=== PATIENT | male | born 1935 | race Caucasian/White ===

== ENCOUNTER 2019-06-10 11:39 | Inpatient (IN) | payer MEDICARE, SELFPAY ==
[2019-06-10] VITALS (7 sets, daily range): BP systolic 131–170; BP diastolic 66–87; PULSE 68–93; RESP 16–20; TEMP 36.1–36.6; O2SAT 98–100; BMI 25.6; BMI 25.5
--- NOTE | ~2019-06-10 | CT_ITS ---
EXAMINATION: CT abdomen wo con EXAM DATE: 06/11/2019 16:01 INDICATION: Splenomegaly. Abdominal pain. TECHNIQUE: Spiral CT of the abdomen was performed without contrast. Axial, coronal and sagittal slava ges were reviewed. The dose-length product (DLP) for this examination was 509.30 mGy-cm. The exposu re was tailored according to patient size (auto mA exposure control), and iterative reconstruction (A SIR) was used as additional dose reduction technique. Comparison is made to prior examination from . FINDINGS: Mildly aneurysmal lower abdominal aorta at 3.4 cm. Spleen measures 14.5 cm, mildly enlarge d, and slightly larger than on previous exam. Gallbladder is unremarkable. No biliary obstruction. There is no nephrolithiasis or hydronephrosis. There is no retroperitoneal lymphadenopathy. The stomach and small bowel are unremarkable. Surgical changes from cecal resection. There is expecte d amount of colonic stool. No free intraperitoneal gas. The interventricular septum is perceptibl e, suggesting patient is anemic. The lung bases are unremarkable. There are no osteoblastic or ost eolytic lesions identified. IMPRESSION: 1. Interval development of mild splenomegaly. 2. Mildly aneurysmal abdominal aorta. Reviewed, dictated and finalized at location A.
--- NOTE | ~2019-06-10 | XR_ITS ---
XR abdomen NG/feed tube insert INDICATION: Evaluate NG tube position. TECHNIQUE: Limited KUB perform for evaluating NG tube . COMPARISON: No prior studies for comparison. FINDINGS: NG tube tip in the stomach. Visualized bowel gas pattern is unremarkable.Hazy ill-defined opacification right mid lung. Recommend correlation with chest x-ray. IMPRESSION: 1: NG tube tip in the stomach. Reviewed, dictated and finalized at location A.
--- NOTE | ~2019-06-10 | US_ITS ---
EXAMINATION: US retroperitoneal comp DATE: 06/12/2019 10:17 INDICATION: Chronic kidney disease. TECHNIQUE: Multiple ultrasound grayscale images of the kidneys were obtained. COMPARISON: CT abdomen 06/11/2019 FINDINGS: The right kidney measures 11.0 x 5.0 x 5.4 cm. The left kidney measures 13.0 x 5.7 x 6.3 cm. The kidn eys demonstrate normal parenchymal echogenicity. There is a 13 mm cyst in left kidney. There is no hy dronephrosis. The bladder is normal. IMPRESSION: 1. Normal kidney sizes. No hydronephrosis. Reviewed, dictated and finalized at location A.
--- NOTE | ~2019-06-10 | XR_ITS ---
EXAMINATION: XR chest 2V 06/10/2019 12:26 INDICATION: Cough PROCEDURE: 2 view chest COMPARISON: Prior FINDINGS: The lungs are clear. The cardiomediastinal silhouette is within normal limits. There are no pleural effusions. There is no pneumothorax suspected. There are healed right fifth and sixth ri b fractures. IMPRESSION: 1: NO ACUTE CARDIOPULMONARY DISEASE. Reviewed, dictated and finalized at location A. 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
--- NOTE | 2019-06-10 12:02 | ED.URI ---
HPI - URI/Sore Throat General Chief Complaint: Unspecified Stated Complaint: cough Time Seen by Provider: 06/10/19 12:00 Source: patient and family (Daughter ) Mode of arrival: ambulatory Limitations: no limitations History of Present Illness HPI Narrative: The pt is an 84 y/o male who presents to the ED c/o productive cough onset six days ago. Pt's daughter states that the pt went to urgent care last week and today; he had a negative strep test both times. She states that he was prescribed Zithromax, which has not provided relief. Pt also had a CXR which was normal. Pt reports sore throat, fever, and rhinorrhea, but denies N/V and hemoptysis. MD elicited complaint: cough (Productive) Onset (ago): day(s) (6) Relieving factors: nothing Associated symptoms: fever, rhinorrhea and sore throat Treatments prior to arrival: antibiotics (Zithromax) Related Data Home Medications Medication Instructions Recorded Confirmed amlodipine 5 mg PO DAILY 02/04/19 02/04/19 aspirin [Aspir-81] 81 mg PO DAILY 02/04/19 02/04/19 duloxetine 30 mg PO DAILY 02/04/19 02/04/19 furosemide 20 mg PO DAILY 02/04/19 02/04/19 loratadine 10 mg PO DAILY 02/04/19 02/04/19 Ca-D3-mag cl-nocs-ouj-lucrecia-bor 1 tablet PO DAILY 06/10/19 [Calcium 600-D3 Plus (mag-zinc)] docusate sodium 100 mg PO BID 06/10/19 finasteride 5 mg PO DAILY 06/10/19 methotrexate sodium 2.5 mg PO 3XW 06/10/19 wxguhtpd-iqk-rlves-vit K-lycop 1 tablet PO DAILY 06/10/19 [Men's 50 Plus Multivitamin] tamsulosin 0.4 mg PO DAILY 06/10/19 vitamin B complex [Super B-50 1 cap PO DAILY 06/10/19 Complex] Allergies Allergy/AdvReac Type Severity Reaction Status Date / Time Sulfa (Sulfonamide AdvReac Hives Verified 02/04/19 15:48 Antibiotics) Review of Systems Review of Systems: All systems reviewed & are unremarkable except as noted in HPI and below Constitutional: Constitutional: Reports fever(s) ENT: Reports sore throat and Reports other (Rhinorrhea) Respiratory: Respiratory: Reports cough (Productive) and Denies hemoptysis Gastrointestinal: Gastrointestinal: Denies nausea and Denies vomiting [facility] Past Medical History Medical History Aortic stenosis Arthritis Depression Diabetes mellitus HLD (hyperlipidemia) Kidney failure Peripheral neuropathy Surgical History Surgical History History of intestinal surgery 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 Corado Exam Narrative: Exam Narrative: APPEARANCE: No acute distress, nontoxic, resting in bed EYES: EOMI HEENT: Normocephalic, atraumatic, bilateral turbinates boggy, mild erythema no exudate posterior pharynx RESPIRATORY: No respiratory distress Clear to auscultation bilaterally with no rhonchi wheezing or rales. CARDIOVASCULAR: Regular rate and rhythm without murmurs rubs or gallops. ABDOMINAL: Soft, nontender, nondistended, no rebound or guarding Rectal: No hemorrhoids or fissures, no active bleeding, small amount of light brown stool that is Hemoccult positive MUSCULOSKELETAl: Moves all extremities. No clubbing, cyanosis or edema. NEURO: Awake and alert. Following commands, speech normal, no focal deficits SKIN:: Warm, dry. No rashes lesions or abrasions PSYCHIATRIC: Normal affect/mood, Course Course Emergency Course: Discussed case with patient's daughter. The patient does have a history of renal insufficiency but is not sure of baseline creatinine. States that she is unsure patient has a history of anemia Discussed with patient and family results of workup and diagnosis. Discussed need for admission. Patient and family understand and agree to current treatment plan Consultations Consultation #1: Discussed case with Tianna Spain PA-C, who accepts admission.. This time recommends 1
[2019-06-10 12:49] LABS: Basophils Percent Auto 0.1 % (0.2-1.2); Eosinophils Absolute Auto 0.2 K/mm3 (0-0.3); Eosinophils Percent Auto 2.2 % (0-4.4); Hematocrit 21.3 % (42.0-52.0); Hemoglobin 7.3 g/dL (14.0-18.0); Immature Granulocyte Absolute 0.09 K/mm3 (0.00-0.031); Immature Granulocyte Percent A 1.3 % (0-0.5); Immature Platelet Fraction Pct 3.2 % (0.9-11.2); Lymphocytes Absolute Auto 0.74 K/mm3 (0.9-3.2); Mean Corpuscular HGB Conc 34.3 g/dl (32-36); Mean Corpuscular Hemoglobin 36.9 pg (26-34); Mean Corpuscular Volume 107.6 fl (80-100); Mean Platelet Volume 12.3 fl (7.4-10.4); Monocytes Absolute Auto 0.2 K/mm3 (0.1-0.6); Neutrophils Absolute Auto 5.6 K/mm3 (1.3-6.7); Neutrophils Percent Auto 82.4 % (45.5-73.1); Platelet Count Result 46 k/mm3 (150-375); Red Blood Count 1.98 M/mm3 (4.6-6.20); Red Cell Distribution Width 18.3 % (11.5-14.5); White Blood Count 6.7 K/mm3 (4.5-10.0)
[2019-06-10 13:01] LABS: Alanine Aminotransferase 80 U/L (4-50); Albumin Level 3.5 g/dL (3.5-5.1); Alkaline Phosphatase 54 U/L (38-126); Aspartate Amino Transferase 45 U/L (17-59); Bilirubin,Total 0.7 mg/dL (0.2-1.3); Blood Urea Nitrogen 60 mg/dL (9-20); Calcium 9.2 mg/dL (8.4-10.2); Carbon Dioxide 27 mmol/L (22-30); Chloride 109 mmol/L (98-107); Estimated CRCL calculation 24 ml/min; Estimated Glomerular Filt Rate 25; Glucose 119 mg/dL (75-110); Potassium 4.1 mmol/L (3.4-5.0); Sodium 141 mmol/L (137-145)
[2019-06-10 13:02] LABS: Anisocytosis 1+ (NORMAL); Hypochromasia 1+ (NORMAL); Microcytosis 1+ (NORMAL); Ovalocytes 1+ (NORMAL); Platelet Estimate Decreased (Adequate); Poikilocytosis 1+ (NORMAL)
[2019-06-10 13:17] LABS: INR 1.1; Prothrombin Time 13.7 Seconds (11.1-14.7)
[2019-06-10 13:41] LABS: Lactic Acid Reflex 1.3 mmol/L (0.7-2.1)
[2019-06-10] MEDS: SODIUM CHLORIDE 0.9% IV 1,000 ML 999 ML IV CONT (14:26)
--- NOTE | 2019-06-10 15:47 | ADMGEN ---
This patient, Dell Leon Sr., was admitted to IMU as a M/S overflow patient to Room 213-01 at 1535. Patient/family oriented to hospital policies and general routines including ID bracelet, bed and alarms, visiting hours, pain management, procedures, bathroom and other care routines, personal items, smoking policy, room service/diet, and visiting hours. Valuables list has been completed. Information on how to activate the Rapid Response Team has been discussed. Patient/Family are encouraged to report perceived risks to care and to ask questions if they do not understand what they are told or what they should do.
--- NOTE | 2019-06-10 16:35 | PC.NURSE ---
This patient, Dell Leon Sr., was admitted to IMU Room 213-01. Patient/family oriented to hospital policies and general routines including ID bracelet, bed and alarms, visiting hours, pain management, procedures, bathroom and other care routines, personal items, smoking policy, room service/diet, and visiting hours. Valuables list has been completed. Information on how to activate the Rapid Response Team has been discussed. Patient/Family are encouraged to report perceived risks to care and to ask questions if they do not understand what they are told or what they should do.
[2019-06-10 17:37] LABS: Hematocrit 21.7 % (42.0-52.0); Hemoglobin 7.6 g/dL (14.0-18.0)
[2019-06-10] MEDS: BENZOCAINE/MENTHOL (*BKC) 18 EA LOZENGE 1 LOZENGE PO (18:43)
[2019-06-10] MEDS: SODIUM CHLORIDE 0.9% IV 1,000 ML 75 ML IV CONT (20:23)
[2019-06-10 20:48] LABS: Add Urine Microscopic? YES; Appearance Urine Clear (Clear); Bacteria Urine Trace /hpf; Bilirubin Urine Negative (Negative); Blood Urine 2+ (Negative); Color Urine Yellow (Yellow); Glucose Urine UA 1+ mg/dL (Negative); Ketones Urine Negative (Negative); Leukocyte Esterase Ur Trace LEU/UL (Negative); Mucus Urine Rare /lpf; Nitrate Urine Negative (Negative); Protein Urine 3+ mg/dL (Negative); RBC Urine >75 /hpf (0-2); Specific Grav Ur 1.023 (1.001-1.035); Squamous Epithelial Cell Urine Few /hpf (Few); Urobilinogen Urine Negative mg/dL (<2.0); WBC Urine 31-50 /hpf
[2019-06-10 20:53] LABS: Immature Reticulocyte Fraction 10.4 % (3.0-15.9); Reticulocyte Hemoglobin Conten 44.6 pg (28.2-35.7); Reticulocyte Percent 1.17 % (0.7-4.3); Reticulocytes Absolute 0.02 B/L (32.2-175.7)
[2019-06-10] MEDS: carvediloL 6.25 MG TABLET PO (21:28)
[2019-06-10] MEDS: DOCUSATE SODIUM 100 MG CAPSULE PO (21:28)
[2019-06-10] MEDS: GABAPENTIN 300 MG CAPSULE PO (21:28)
--- NOTE | 2019-06-10 21:40 | PM.IMHP ---
H&P: HPI History of Present Illness Chief complaint: Sore throat Narrative: Date and time of patient contact: 06/10/2019 at 9:40 p.m. Dell Leon Sr. is a 84 year old male with a past medical history of chronic kidney disease, hypertension, psoriasis and congestive heart failure who presented to the ER from [facility] for evaluation of cough congestion and sore throat. The patient himself reports that his only symptom was sore throat. He actually the night having cough congestion or shortness of breath. He also denied having a fever however occasional fever was mentioned in the ER triage note. Source of information is ER records, past medical records from several years ago, and patient report. The patient is a poor historian. The patient had evidently been placed on a Z-Mauro last week for the symptoms without improvement. The patient has had a productive cough for 6 days. Patient was evaluated in the ER was found to have profound anemia and thrombocytopenia. On exam he was found to have significant pallor. He was admitted to the hospital in this setting. The patient self denies noticing any pallor prior to coming in. However the patient is only oriented to person and place. He admits that his memory has been getting worse for quite some time. He reports that he may have occasional shortness of breath with exertion patient denies any chest pain. Denies any rhinorrhea or postnasal drip. The patient does admit that he has a sensation of incomplete bladder emptying quite frequently. He smells strongly of urine. he denies any dysuria or hematuria. He denies any hematochezia or melena but was found to be Hemoccult positive on rectal exam performed in the ER. The patient's daughter had reported that she had noticed a couple of drops of blood on the bathroom floor recently. The patient is noted to have a small abrasion to his right great toe that is easy using a small amount of blood. He denies any cough or congestion but did report sore throat. He was noted to have a few petechiae to his posterior soft palate 1 of which is oozing a small amount of blood. He denies any difficulty swallowing food or choking or coughing on food. The patient had a negative rapid strep at [facility]. Influenza a and B negative. Review of Systems Review of Systems: Narrative: Except as documented in the HPI, all other systems were reviewed and are negative. However the patient is unreliable historian is only oriented to person and place. Review of systems is largely unreliable. [facility] Past Medical History Medical History (Updated 06/10/19 @ 23:02 by Geno Baca DO) Abdominal aortic aneurysm Infrarenal abdominal aortic aneurysm measuring 3.4 cm on imaging from February 2019 Aortic stenosis Echocardiogram December 2018 demonstrated EF of 55-60%, moderate to severe aortic stenosis with valve area of 1 cm, mild to moderate mitral valve regurgitation, mild tricuspid regurgitation Arthritis Bilateral inguinal hernia Bilateral fat containing inguinal hernias noted on CT 02/2019 Chronic kidney disease, stage 3 With creatinine of 1.13 April 2017 Depression Diabetes mellitus History of BPH HLD (hyperlipidemia) Peripheral neuropathy Psoriasis On methotrexate 3 times weekly Surgical History Surgical History History of intestinal surgery 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 It sounds as if he smoked at least a pack of cigarettes per day. He reports the used to drink at least a moderate if not larger amount of alcohol but quit drinking 20 years ago. He denies any illicit substance use. He he currently lives with his daught
[2019-06-10 23:48] LABS: Lactate Dehydrogenase 891 U/L (313-618)
[2019-06-11] VITALS (18 sets, daily range): BP systolic 149–172; BP diastolic 53–87; PULSE 64–101; RESP 16–20; TEMP 35.6–36.6; O2SAT 94–100
[2019-06-11 00:01] LABS: Hematocrit 20.1 % (42.0-52.0); Hemoglobin 6.9 g/dL (14.0-18.0)
[2019-06-11 00:11] LABS: Iron 67 ug/dL (49-181)
[2019-06-11 00:21] LABS: Percent Iron Saturation 28 % (20-50)
[2019-06-11 00:55] LABS: Folic Acid 9.7 ng/mL (2.76->20)
--- NOTE | 2019-06-11 03:47 | PC.NURSE ---
Daylight Savings Time For Daylight Savings Time Ending in the Fall - Clocks are moved back. For Daylight Savings Time Beginning in the Spring - Clocks are moved ahead. For [facility], the time of change occurs at 0200 hrs. Time is taken from the insole coverer. This entry on the patient's chart recognizes the change in time reflected during documentation. Example: 2 entries for vital signs may be charted for 0200 hrs.
[2019-06-11] MEDS: GABAPENTIN 300 MG CAPSULE PO ×3 (05:36→21:36)
[2019-06-11] MEDS: LORATADINE 10 MG TABLET PO (08:50)
[2019-06-11] MEDS: carvediloL 6.25 MG TABLET PO ×2 (08:50→21:36)
[2019-06-11] MEDS: FINASTERIDE 5 MG TABLET PO (08:50)
[2019-06-11] MEDS: VITAMIN B COMPLEX CAPSULE 1 CAP PO (08:50)
[2019-06-11] MEDS: THERAPEUTIC MULTIVITAMINS/MINERALS TAB (*BKC) 1 TABLET PO (08:51)
[2019-06-11] MEDS: DOCUSATE SODIUM 100 MG CAPSULE PO ×2 (08:51→21:36)
[2019-06-11] MEDS: TAMSULOSIN HCL 0.4 MG CAPSULE PO (08:52)
[2019-06-11] MEDS: AMLODIPINE BESYLATE 5 MG TABLET PO (08:52)
[2019-06-11 11:14] LABS: Basophils Percent Auto 0.2 % (0.2-1.2); Eosinophils Absolute Auto 0.2 K/mm3 (0-0.3); Hematocrit 24.4 % (42.0-52.0); Hemoglobin 8.4 g/dL (14.0-18.0); Immature Granulocyte Absolute 0.05 K/mm3 (0.00-0.031); Immature Granulocyte Percent A 0.9 % (0-0.5); Lymphocytes Absolute Auto 0.77 K/mm3 (0.9-3.2); Lymphocytes Percent Auto 13.7 % (18.3-44.2); Mean Corpuscular HGB Conc 34.4 g/dl (32-36); Mean Corpuscular Hemoglobin 33.9 pg (26-34); Mean Corpuscular Volume 98.4 fl (80-100); Mean Platelet Volume 12.1 fl (7.4-10.4); Monocytes Absolute Auto 0.2 K/mm3 (0.1-0.6); Monocytes Percent Auto 4.3 % (2.6-8.5); Neutrophils Absolute Auto 4.4 K/mm3 (1.3-6.7); Neutrophils Percent Auto 77.9 % (45.5-73.1); Platelet Count Result 38 k/mm3 (150-375); Red Blood Count 2.48 M/mm3 (4.6-6.20); Red Cell Distribution Width 22.6 % (11.5-14.5); White Blood Count 5.6 K/mm3 (4.5-10.0)
[2019-06-11 11:25] LABS: Blood Urea Nitrogen 53 mg/dL (9-20); Calcium 8.7 mg/dL (8.4-10.2); Carbon Dioxide 26 mmol/L (22-30); Chloride 107 mmol/L (98-107); Estimated CRCL calculation 29 ml/min; Estimated Glomerular Filt Rate 30; Glucose 147 mg/dL (75-110); Sodium 140 mmol/L (137-145)
[2019-06-11 11:35] LABS: Platelet Estimate Decreased (Adequate)
[2019-06-11 11:36] LABS: Microcytosis 1+ (NORMAL); Ovalocytes 1+ (NORMAL); Poikilocytosis 1+ (NORMAL)
[2019-06-11] MEDS: DULOXETINE HCL 30 MG CAPSULE.DR PO (12:23)
[2019-06-11] MEDS: SODIUM CHLORIDE 0.9% IV 1,000 ML 75 ML IV CONT (15:15)
[2019-06-11] MEDS: ACETAMINOPHEN 325 MG TABLET 650 MG PO (15:15)
--- NOTE | 2019-06-11 15:40 | PM.IMPN ---
Progress Note: A&P Assessment and Plan (1) Anemia: Code(s): D64.9 - Anemia, unspecified Status: Acute Assessment and Plan: Megaloblastic anemia. Nutritional deficiencies could possibly lead to patient's megaloblastic anemia however will need to rule out deficiencies in red blood cell production and medication effect given the patient's methotrexate use. B12, folate, reticulocyte count and iron studies have been ordered. Will hold the patient's methotrexate. Patient is seen by jig bore operator and further recommendation to follow (2) Acute GI bleeding: Code(s): K92.2 - Gastrointestinal hemorrhage, unspecified Status: Acute Assessment and Plan: Gastroenterology has been consulted. Will monitor serial H&Hs. will transfuse for hemoglobin less than 7. (3) Thrombocytopenia: Code(s): D69.6 - Thrombocytopenia, unspecified Status: Acute Assessment and Plan: Will monitor for any overt bleeding. The patient does have petechiae with a small amount of bruising from the mucous membranes. Possibly due to methotrexate use. Will repeat platelet count with a.m. labs. Will have a low threshold for transfusion. (4) Acute on chronic renal insufficiency: Code(s): N28.9 - Disorder of kidney and ureter, unspecified; N18.9 - Chronic kidney disease, unspecified Status: Acute Assessment and Plan: Likely at least in part due to BPH. Patient has been started on IV fluids and we will continue the patient's home finasteride and Flomax. Repeat electrolyte panel in a.m. will do the kidney ultrasound and have Nephrology see the patient. (5) Dementia: Code(s): F03.90 - Unspecified dementia without behavioral disturbance Status: Acute Assessment and Plan: Patient is intermittently confused. It sounds as if this is been symptoms that have gotten progressively worse over time. The patient likely has dementia. Patient clinically stable B12, folic acid and TSH are normal Subjective Date/time seen: 06/11/19 15:40 Patient is 84-year-old male had been having upper respiratory infection and sore throat was seen at the local urgent care started the patient on Zithromax however symptoms were not improving he was re-evaluated at the urgent care with a chest x-ray were patient was appears quite pallor and he was referred to the emergency depart patient is found to have anemia with hemoglobin 6.8, any abdominal pain nausea or vomiting any rectal bleeding denies any hematochezia, hematemesis, however is stool Hemoccult was positive in the ER, his MCV is quite elevated however is vitamin B12 is normal folic is nomal and TSH is normal, will transfuse 1 unit pack RBC, suspect patient may have megaloblastic anemia consult jig bore operator for further recommendation as well as GI further evaluation, patient daughter is present in the room and she agrees with plan Review of Systems Review of Systems: All systems reviewed & are unremarkable except as noted in HPI and below Exam Narrative: Exam Narrative: Elderly frail with dementia Const: General: comfortable and no acute distress HENMT: General nose exam: Normal nares present Mouth: Yes moist mucous membranes Eyes: General: appearance normal, both eyes and all related structures Sclera: sclerae normal Neck: Neck: supple Resp: Effort & Inspection: normal respiratory effort Auscultation: clear to auscultation bilaterally Cardio: Rate: regular rate Rhythm: regular rhythm GI: Auscultation: normal bowel sounds Skin: General skin exam: normal color and no rashes or lesions noted Neuro: Speech: normal speech Sensory Exam: normal sensation Extrem: General: normal to inspection Psych: Affect: Anxious affect present Objective Data Vital Signs Vital Signs: Vital Signs - 24 hr 06/10/19 15:40 06/10/19 16:00 06/10/19 19:42 Temperature 98 F 97.3 F L Pulse Rate 79 81 93 Respiratory Rate 18 16 Blood Pressure 170/66 H 131/78 P
[2019-06-11] MEDS: EPOETIN ALFA 20,000 UNITS/ML VIAL 20000 UNITS SUB-Q (18:22)
[2019-06-11 18:37] LABS: Glucose Point of Care 151 (65-105)
[2019-06-11 18:37] LABS: Glucose Point of Care 130 (65-105)
--- NOTE | 2019-06-11 19:22 | CONS_ITS ---
DATE OF CONSULTATION: 06/11/2019 REASON FOR CONSULTATION: Anemia. HISTORY OF PRESENTING ILLNESS: This is a pleasant 84-year-old male, who has a history of colectomy done 3 years ago for unclear reason, along with history of chronic kidney disease, psoriasis, and congestive heart failure. He came into the hospital with upper respiratory symptoms including sore throat, congestion, and cough. He was also complaining of shortness of breath along with tiredness and fatigue. He denies any diarrhea and constipation. He denies any fevers and chills. He denies any hematuria and dysuria. Denies any melena and hematochezia, but found to have a Hemoccult-positive stool in the ER. Labs showed hemoglobin of 7.3. REVIEW OF SYSTEMS: A 12-point review of system was reviewed and as per HPI, otherwise negative. PAST MEDICAL HISTORY: Chronic kidney disease, hypertension, congestive heart failure, abdominal aortic aneurysm, aortic stenosis, arthritis, bilateral inguinal hernia, depression, diabetes, BPH, peripheral neuropathy, and psoriasis on methotrexate. PAST SURGICAL HISTORY: History of intestinal surgery, unclear the reason, possibly cancer. FAMILY HISTORY: Noncontributory. SOCIAL HISTORY: The patient quit smoking 20 years ago. He quit drinking 20 years ago as well. He lives with a daughter. HOME MEDICATIONS: Reviewed. ALLERGIES: REVIEWED. PHYSICAL EXAMINATION: GENERAL: This patient is a well-developed, well-nourished male, in no apparent distress. Alert and oriented. VITAL SIGNS: As per nursing note. HEENT: Normocephalic, atraumatic. Clear oropharynx. LUNGS: Clear to auscultation bilaterally. CARDIOVASCULAR: Regular rate and rhythm. No murmurs. ABDOMEN: Soft, nontender, nondistended. Bowel sounds are positive on all 4 quadrants. No hepatosplenomegaly. EXTREMITIES: No edema. NEURO EXAM: Grossly intact. LABORATORY DATA: WBC 5.6, hemoglobin 8.4, hemoglobin of 6.9 prior to the transfusion, MCV 98.4, platelets 38,000, neutrophils 77%, lymphocytes 13%. INR 1.1, PTT 26, creatinine 2.1, iron 67, iron saturation 28%, ferritin 392, B12 826, and LDH 891. ASSESSMENT AND PLAN: Microcytic anemia with thrombocytopenia. The patient is a pleasant 84-year-old male with a history of chronic kidney disease and diabetes. He also has a history of colectomy done 3 years ago for unclear reasons, possibly for cancer surgery. The patient's daughter is going to provide me more information. I have discussed this case with the patient's daughter as well. Possibility of anemia of chronic kidney disease. There is other possibility of primary bone marrow disorder like myelodysplastic syndrome with thrombocytopenia. I will order the workup that will include platelet antibodies as well as CT abdomen. CT abdomen will be done to rule out any malignancy as well hepatosplenomegaly. I will also start him on Procrit 20508 units on a weekly basis for anemia of chronic kidney disease. I would recommend GI consultation for colonoscopy given the Hemoccult-positive stool and previous history of colectomy. I have answered all the questions to the patient's and the family's satisfaction. BAUDILIO MAHER M.D. CHRISTMAS TREE CONTRACTOR CHRISTMAS TREE CONTRACTOR D I MT: Carmelina
[2019-06-11 20:47] LABS: Glucose Point of Care 159 (65-105)
[2019-06-12 05:00] VITALS: BP 177/63; PULSE 77; RESP 20; TEMP 36.6; O2SAT 96
[2019-06-12] MEDS: GABAPENTIN 300 MG CAPSULE PO ×3 (05:08→22:03)
[2019-06-12] MEDS: SODIUM CHLORIDE 0.9% IV 1,000 ML 75 ML IV CONT ×2 (05:08→18:22)
[2019-06-12 08:00] VITALS: BP 181/72; PULSE 65; RESP 18; TEMP 35.9; O2SAT 97
[2019-06-12 08:22] LABS: Hematocrit 24.2 % (42.0-52.0); Hemoglobin 8.6 g/dL (14.0-18.0); Mean Corpuscular HGB Conc 35.5 g/dl (32-36); Mean Corpuscular Hemoglobin 34.3 pg (26-34); Mean Corpuscular Volume 96.4 fl (80-100); Mean Platelet Volume 10.1 fl (7.4-10.4); Platelet Count Result 36 k/mm3 (150-375); Red Blood Count 2.51 M/mm3 (4.6-6.20); Red Cell Distribution Width 22.4 % (11.5-14.5); White Blood Count 5.6 K/mm3 (4.5-10.0)
[2019-06-12 08:31] LABS: Alanine Aminotransferase 55 U/L (4-50); Albumin Level 3.1 g/dL (3.5-5.1); Alkaline Phosphatase 59 U/L (38-126); Aspartate Amino Transferase 37 U/L (17-59); Bilirubin,Total 0.7 mg/dL (0.2-1.3); Blood Urea Nitrogen 43 mg/dL (9-20); Calcium 8.2 mg/dL (8.4-10.2); Carbon Dioxide 24 mmol/L (22-30); Chloride 109 mmol/L (98-107); Estimated CRCL calculation 33 ml/min; Estimated Glomerular Filt Rate 36; Glucose 129 mg/dL (75-110); Magnesium 1.8 mg/dL (1.6-2.3); Potassium 3.9 mmol/L (3.4-5.0); Sodium 139 mmol/L (137-145)
[2019-06-12] MEDS: BENZOCAINE/MENTHOL (*BKC) 18 EA LOZENGE 1 LOZENGE PO (08:37)
[2019-06-12 08:38] VITALS: PULSE 77
[2019-06-12] MEDS: THERAPEUTIC MULTIVITAMINS/MINERALS TAB (*BKC) 1 TABLET PO (08:38)
[2019-06-12] MEDS: VITAMIN B COMPLEX CAPSULE 1 CAP PO (08:38)
[2019-06-12] MEDS: AMLODIPINE BESYLATE 5 MG TABLET PO ×2 (08:38→14:20)
[2019-06-12] MEDS: LORATADINE 10 MG TABLET PO (08:38)
[2019-06-12] MEDS: DOCUSATE SODIUM 100 MG CAPSULE PO ×2 (08:38→22:03)
[2019-06-12] MEDS: DULOXETINE HCL 30 MG CAPSULE.DR PO (08:38)
[2019-06-12] MEDS: carvediloL 6.25 MG TABLET PO ×2 (08:38→22:03)
[2019-06-12] MEDS: FINASTERIDE 5 MG TABLET PO (08:38)
[2019-06-12] MEDS: TAMSULOSIN HCL 0.4 MG CAPSULE PO (08:39)
[2019-06-12 09:28] LABS: Glucose Point of Care 120 (65-105)
[2019-06-12 10:14] LABS: Anisocytosis 2+ (NORMAL); Band Neutrophils Percent 2 % (0-6); Eosinophils Absolute Manual 0.05 K/mm3 (0.02-0.5); Eosinophils Percent Manual 1 % (0-4); Lymphocytes Absolute Manual 1.12 K/mm3 (1.1-4.5); Metamyelocytes Percent 1 %; Monocytes Absolute Manual 0.16 K/mm3 (0.1-0.90); Monocytes Percent Manual 3 % (3-9); Neutrophils Percent Manual 73 % (46-73); Platelet Estimate Decreased (Adequate); Total Cells Counted 100
[2019-06-12 10:15] LABS: Hypochromasia 2+ (NORMAL); Ovalocytes 1+ (NORMAL)
[2019-06-12 12:15] LABS: Glucose Point of Care 157 (65-105)
--- NOTE | 2019-06-12 12:42 | WPDGICN ---
Assessment and Plan Assessment and plan (1) Acute GI bleeding: Code(s): K92.2 - Gastrointestinal hemorrhage, unspecified Status: Acute Assessment and Plan: noted some blood in stools, also had partial colectomy but unknown reason. anemia could be from MTX toxiticy (also low platelets), and bleeding from subsequent thrombocytopenia. will assess tomorrow with scopes (2) Dysphagia: Qualifiers: Dysphagia type: unspecified Qualified Code(s): R13.10 - Dysphagia, unspecified Code(s): R13.10 - Dysphagia, unspecified Status: Acute Assessment and Plan: he also had difficulty swallowing along with sore throat, I wonder if could have stomatitis from MTX use, or esophagitis, etc. will assess with egd (3) Sore throat: Code(s): J02.9 - Acute pharyngitis, unspecified Status: Acute (4) Acute blood loss anemia: Code(s): D62 - Acute posthemorrhagic anemia Status: Acute Assessment and Plan: received blood transfusion hematology on board (5) Methotrexate adverse reaction: Qualifiers: Encounter type: initial encounter Qualified Code(s): T45.1X5A - Adverse effect of antineoplastic and immunosuppressive drugs, initial encounter Code(s): T45.1X5A - Adverse effect of antineoplastic and immunosuppressive drugs, initial encounter Status: Acute Assessment and Plan: daughter says that last month has been using without folic acid, MTX on hold now. (6) Thrombocytopenia: Code(s): D69.6 - Thrombocytopenia, unspecified Status: Acute (7) Acute on chronic renal insufficiency: Code(s): N28.9 - Disorder of kidney and ureter, unspecified; N18.9 - Chronic kidney disease, unspecified Status: Acute (8) Dementia: Qualifiers: Dementia type: unspecified type Dementia behavioral disturbance: without behavioral disturbance Qualified Code(s): F03.90 - Unspecified dementia without behavioral disturbance Code(s): F03.90 - Unspecified dementia without behavioral disturbance Status: Acute GI Consult Note Consult date/time: 06/12/19 12:42 Reason for consult: dysphagia, blood in stools, anemia HPI: Dell Leon . is a 84 year old male with history of chronic kidney disease, hypertension, psoriasis on MTX for last few months and congestive heart failure who came to the ER after evaluation in urgent care because ongoing cough and sore throat for 8-9 days, treated empirically with Z-pack. Upon further questioning he admits dysphagia for same time and also noted small amount of blood in stools. He had partial colectomy about 3-4 years ago for unknown reason in [place]. He was found to be anemic (hb 6.9) and received blood transfusion and also platelets 40k, normal WBC. He is relatively poor historian (memory problem) and daughter is at bedside. Review of Systems Constitutional: Constitutional: Reports fatigue Eyes: Eyes: Denies blurry vision ENT: Reports dry mouth and Reports sore throat Cardiovascular: Cardiovascular: Denies chest pain and Denies dyspnea Respiratory: Respiratory: Denies dyspnea Gastrointestinal: Gastrointestinal: Reports dysphagia Genitourinary: Genitourinary: Denies dysuria Musculoskeletal: Musculoskeletal: Denies neck pain Integumentary/Breasts: Skin/Breast: Denies dry skin Neurologic: Reports Normal hearing present, Denies headache(s) and Denies weakness Psychiatric: Psychiatric: Denies anxiety Endocrine: Endocrine: Denies change in body appearance Hematologic/Lymphatic: Hematologic/Lymphatic: Denies lymphadenopathy Allergic/Immunologic: Allergic/Immunologic: Denies urticaria [facility] Past Medical History Medical History (Updated 06/12/19 @ 16:23 by Nick Jimenez MD) Abdominal aortic aneurysm Infrarenal abdominal aortic aneurysm measuring 3.4 cm on imaging from February 2019 Acute blood loss anemia Aortic stenosis Echocardiogram December 2018 demonstrate
[2019-06-12 15:52] VITALS: BP 147/68; PULSE 78; RESP 16; TEMP 36.3; O2SAT 98
--- NOTE | 2019-06-12 17:18 | PM.IMPN ---
Progress Note: A&P Assessment and Plan (1) Anemia: Code(s): D64.9 - Anemia, unspecified Status: Acute Assessment and Plan: 06/12/19 17:18 Megaloblastic anemia. Nutritional deficiencies could possibly lead to patient's megaloblastic anemia however will need to rule out deficiencies in red blood cell production and medication effect given the patient's methotrexate use. To further evaluate patient had check B12 folate and TSH level which are normal, patient was seen by air and missile defense crewmember to further evaluate patient a CT scan of abdominal is os insulin no, patient stool Hemoccult was positive patient is seen by GI and recommending colonoscopy as well as EGD because of complaints of dysphagia and sore throat, today patient is clinically stable denies any chest pain shortness of breath palpitation fever or chills his daughter is present in the room (2) Acute GI bleeding: Code(s): K92.2 - Gastrointestinal hemorrhage, unspecified Status: Acute Assessment and Plan: Gastroenterology has been consulted. Will monitor serial H&Hs. will transfuse for hemoglobin less than 7. Patient is seen by GI recommending colonoscopy and EGD for further evaluation (3) Thrombocytopenia: Code(s): D69.6 - Thrombocytopenia, unspecified Status: Acute Assessment and Plan: Will monitor for any overt bleeding. The patient does have petechiae with a small amount of bruising from the mucous membranes. Possibly due to methotrexate use. Will repeat platelet count with a.m. labs. Today platelet counts is 36, will have a low threshold for transfusion. (4) Acute on chronic renal insufficiency: Code(s): N28.9 - Disorder of kidney and ureter, unspecified; N18.9 - Chronic kidney disease, unspecified Status: Acute Assessment and Plan: Likely at least in part due to BPH. Patient has been started on IV fluids and we will continue the patient's home finasteride and Flomax. Repeat electrolyte panel in a.m. will do the kidney ultrasound and have Nephrology see the patient. (5) Dementia: Qualifiers: Dementia behavioral disturbance: without behavioral disturbance Dementia type: unspecified type Qualified Code(s): F03.90 - Unspecified dementia without behavioral disturbance Code(s): F03.90 - Unspecified dementia without behavioral disturbance Status: Acute Assessment and Plan: Patient is intermittently confused. It sounds as if this is been symptoms that have gotten progressively worse over time. The patient likely has dementia. Patient clinically stable B12, folic acid and TSH are normal Subjective Date/time seen: 06/12/19 17:18 Megaloblastic anemia. Nutritional deficiencies could possibly lead to patient's megaloblastic anemia however will need to rule out deficiencies in red blood cell production and medication effect given the patient's methotrexate use. To further evaluate patient had check B12 folate and TSH level which are normal, patient was seen by air and missile defense crewmember to further evaluate patient a CT scan of abdominal is os insulin no, patient stool Hemoccult was positive patient is seen by GI and recommending colonoscopy as well as EGD because of complaints of dysphagia and sore throat, today patient is clinically stable denies any chest pain shortness of breath palpitation fever or chills his daughter is present in the room Review of Systems Review of Systems: All systems reviewed & are unremarkable except as noted in HPI and below Exam Narrative: Exam Narrative: Elderly frail Const: General: comfortable and no acute distress HENMT: General nose exam: Normal nares present Mouth: Yes moist mucous membranes Eyes: General: appearance normal, both eyes and all related structures Sclera: sclerae normal Neck: Neck: supple Resp: Effort & Inspection: normal respiratory effort Auscultation: clear to auscultation bilaterally Cardio: Rate: regular rate Rhythm: regular rhythm
--- NOTE | 2019-06-12 18:00 | PM.CNNEP ---
Assessment and Plan Assessment and plan (1) Chronic progressive renal failure, stage 4 (severe): Code(s): N18.4 - Chronic kidney disease, stage 4 (severe) Status: Acute (2) Acute GI bleeding: Code(s): K92.2 - Gastrointestinal hemorrhage, unspecified Status: Acute (3) Thrombocytopenia: Code(s): D69.6 - Thrombocytopenia, unspecified Status: Acute (4) Dementia: Qualifiers: Dementia type: unspecified type Dementia behavioral disturbance: without behavioral disturbance Qualified Code(s): F03.90 - Unspecified dementia without behavioral disturbance Code(s): F03.90 - Unspecified dementia without behavioral disturbance Status: Acute Assessment and Plan: . Additional Plan Dell has chronic kidney disease that is it well as stab list diagnosis. His creatinine when I saw him earlier this year was running around 1.9 - 2.4 mg/dL which translates into a GFR that fluctuates between chronic kidney disease stage 3 and 4. As mentioned, my suspicion for the etiology of his kidney disease was thought to be from his diabetes, vascular disease, medications (diuretics and methotrexate), and age-related change. I did order or further evaluation with regard to her renal ultrasound serologies that at that etc but I do not believe any these tests have been done. Given his acute illness, some of these tests may be difficult to interpret so I would rather do them after his acute illness has resolved. As his kidney function /creatinine is stable at this time, I would proceed with further evaluation with regard to his EGD and colonoscopy per Gastroenerology as well as proceed with other recommendations by Hematology for further evaluation of his anemia and thrombocytopenia. I did have a very long lengthy discussion with the patient's daughter ( greater than 20 min) regarding the above issues as well as informing her that the patient's kidney function appears to be relatively stable at this time. I will continue follow patient with you while him is hospitalized make further recommendations to during his hospital course. Thank you for allowing me per spending the care of this patient. History of Present Illness Reason for Consult Consult date: 06/12/19 Reason for consult: chronic renal failure Chief Complaint Chief complaint: Sore throat History of Present Illness Narrative: The patient is a 84 year old male with an extensive past medical history as outlined below who presented to [facility] ER from urgent care for evaluation of cough, congestion, and a sore throat. The patient is a very poor historian and most of the information I have obtained is from review of the electronic medical record as well as discussion with the patient's daughter at bedside. The patient had been placed on a Z-Mauro last week for the above symptoms without improvement. Since that time, he has had a a productive cough for 6 days. Prior to that, his only real complaint was that of the sore throat and the cough and congestion came later. Evaluation at urgent care revelated negative rapid strep as well as influenza A and B testing. Workup and evaluation in the emergency room demonstrated the patient to be hemodynamically stable but routine blood test demonstrated significant anemia and thrombocytopenia. He denied any hematochezia or melena but was found to be Hemoccult positive on rectal exam in the ER. The patient's daughter had reported that she had noticed a couple of drops of blood on the bathroom floor recently but did not think much of it at that time. given his complex medical history and the aforementioned laboratory findings, he was admitted to the hospital for further evaluation and therapy. Since admission, he has received packed red blood cell transfusions and seen in consultation by Hematology with subsequent initiation of Procrit /Epogen the therapy as well as further investigation with regard
[2019-06-12] MEDS: PEG (High)/E-LYTE SOLN 4,000 ML BTL 4000 ML PO (18:21)
[2019-06-12] MEDS: BISACODYL 5 MG TABLET EC 20 MG PO (18:22)
[2019-06-12 20:00] VITALS: BP 146/87; PULSE 95; RESP 20; TEMP 36.6; O2SAT 100
[2019-06-12 20:45] LABS: Glucose Point of Care 192 (65-105)
[2019-06-12 22:03] VITALS: PULSE 86
[2019-06-12] MEDS: ONDANSETRON INJ 4 MG/2 ML VIAL IV PUSH (22:24)
[2019-06-13] VITALS (12 sets, daily range): BP systolic 120–153; BP diastolic 48–89; PULSE 73–98; RESP 16–22; TEMP 36.1–37.2; O2SAT 93–100
[2019-06-13 04:42] LABS: Basophils Percent Auto 0.1 % (0.2-1.2); Eosinophils Absolute Auto 0.2 K/mm3 (0-0.3); Eosinophils Percent Auto 1.5 % (0-4.4); Hematocrit 25.2 % (42.0-52.0); Hemoglobin 8.7 g/dL (14.0-18.0); Immature Granulocyte Absolute 0.18 K/mm3 (0.00-0.031); Immature Granulocyte Percent A 1.5 % (0-0.5); Immature Platelet Fraction Pct 5.3 % (0.9-11.2); Lymphocytes Absolute Auto 0.71 K/mm3 (0.9-3.2); Mean Corpuscular HGB Conc 34.5 g/dl (32-36); Mean Corpuscular Hemoglobin 34.3 pg (26-34); Mean Corpuscular Volume 99.2 fl (80-100); Mean Platelet Volume 11.8 fl (7.4-10.4); Monocytes Absolute Auto 0.7 K/mm3 (0.1-0.6); Monocytes Percent Auto 5.5 % (2.6-8.5); Neutrophils Absolute Auto 10.1 K/mm3 (1.3-6.7); Neutrophils Percent Auto 85.4 % (45.5-73.1); Nucleated Red Blood Cells Perc 0.2 % (0.0-0.2); Platelet Count Result 56 k/mm3 (150-375); Red Blood Count 2.54 M/mm3 (4.6-6.20); White Blood Count 11.8 K/mm3 (4.5-10.0)
[2019-06-13 04:56] LABS: Alanine Aminotransferase 44 U/L (4-50); Alkaline Phosphatase 56 U/L (38-126); Aspartate Amino Transferase 31 U/L (17-59); Bilirubin,Total 0.7 mg/dL (0.2-1.3); Blood Urea Nitrogen 38 mg/dL (9-20); Calcium 7.9 mg/dL (8.4-10.2); Carbon Dioxide 26 mmol/L (22-30); Chloride 107 mmol/L (98-107); Estimated CRCL calculation 35 ml/min; Estimated Glomerular Filt Rate 39; Glucose 145 mg/dL (75-110); Potassium 3.8 mmol/L (3.4-5.0); Sodium 137 mmol/L (137-145)
[2019-06-13] MEDS: MAGNESIUM CITRATE 300 ML BTL PO (05:37)
[2019-06-13] MEDS: GABAPENTIN 300 MG CAPSULE PO ×3 (05:37→20:27)
[2019-06-13] MEDS: SODIUM CHLORIDE 0.9% IV 1,000 ML 75 ML IV CONT (06:55)
[2019-06-13] MEDS: AMLODIPINE BESYLATE 5 MG TABLET 10 MG PO (08:14)
[2019-06-13] MEDS: DULOXETINE HCL 30 MG CAPSULE.DR PO (08:14)
[2019-06-13] MEDS: TAMSULOSIN HCL 0.4 MG CAPSULE PO (08:14)
[2019-06-13] MEDS: LORATADINE 10 MG TABLET PO (08:14)
[2019-06-13] MEDS: FINASTERIDE 5 MG TABLET PO (08:14)
[2019-06-13] MEDS: carvediloL 6.25 MG TABLET PO ×2 (08:14→20:27)
[2019-06-13] MEDS: VITAMIN B COMPLEX CAPSULE 1 CAP PO (08:15)
[2019-06-13] MEDS: THERAPEUTIC MULTIVITAMINS/MINERALS TAB (*BKC) 1 TABLET PO (08:15)
[2019-06-13] MEDS: ACETAMINOPHEN 325 MG TABLET 650 MG PO (09:26)
[2019-06-13 10:07] LABS: Glucose Point of Care 169 (65-105)
--- NOTE | 2019-06-13 10:46 | PM.PNNEP ---
Progress Note: A&P Assessment and Plan (1) Chronic kidney disease, stage IV (severe): Code(s): N18.4 - Chronic kidney disease, stage 4 (severe) Status: Acute Assessment and Plan: baseline creatinine usually runs ~ 1.9 - 2.4mg/dl in the last year due to his diabetes, vascular disease, medications (diuretics and methotrexate), and age-related change creatinine better than baseline currently - suspect due to being off lasix and MTX + IVFs no critical electrolytes and volume status stable continue supportive therapy (2) Acute GI bleeding: Code(s): K92.2 - Gastrointestinal hemorrhage, unspecified Status: Acute Assessment and Plan: GI following plan EGD + colonoscopy today follow H/H s/p PRBC transfusion (3) Thrombocytopenia: Code(s): D69.6 - Thrombocytopenia, unspecified Status: Acute Assessment and Plan: Hem/Onc following platelet count stabe if not better (4) Dementia: Qualifiers: Dementia behavioral disturbance: without behavioral disturbance Dementia type: unspecified type Qualified Code(s): F03.90 - Unspecified dementia without behavioral disturbance Code(s): F03.90 - Unspecified dementia without behavioral disturbance Status: Acute Assessment and Plan: stable at this time Will continue to follow. Subjective Date/time seen: 06/13/19 10:46 Tolerated bowel prep yesterday afternoon; due for EGD/colonoscopy later this afternoon; no other acute issues or problems voiced at this time. Exam Narrative: Exam Narrative: General: WD/WN male in NAD Heart: normal S1 and S2; no rub Lungs: clear to auscultation Abdomen: soft, nontender, nondistended, positive bowel sounds Extremities: no cyanosis or clubbing; no edema Skin: warm and dry Objective Data Vital Signs Vital Signs: Vital Signs Temp Pulse Resp BP Pulse Ox 06/13/19 08:14 79 06/13/19 08:13 37.2 C 86 18 134/59 L 94 06/13/19 08:00 79 18 94 06/13/19 04:00 36.8 C 78 20 120/89 94 06/13/19 00:00 98 06/12/19 22:03 86 06/12/19 20:00 36.6 C 95 20 146/87 H 100 06/12/19 15:52 36.3 C L 78 16 147/68 H 98 Intake/Output Intake/Output: Intake & Output 06/10/19 06/11/19 06/12/19 06/13/19 22:59 23:59 23:59 23:59 Intake Total 3670 1000 Output Total 1350 550 Balance 2320 450 Meds/Results Medications: Active Medications Generic Name Dose Route Start Last Admin Trade Name Freq PRN Reason Stop Dose Admin Acetaminophen 650 mg 06/11/19 14:36 06/13/19 09:26 Tylenol Tablet PO 650 mg Q6H PRN Administration Mild Pain (1-3) or Fever Amlodipine Besylate 10 mg 06/13/19 09:00 06/13/19 08:14 Norvasc PO 10 mg DAILY TIRSO Administration Benzocaine 1 lozenge 06/10/19 17:35 06/12/19 08:37 Chloraseptic Lozenge PO 1 lozenge PRN PRN Administration Sore Throat Carvedilol 6.25 mg 06/10/19 21:00 06/13/19 08:14 Coreg PO 6.25 mg Q12HR TIRSO Administration Docusate Sodium 100 mg 06/10/19 21:00 06/13/19 08:02 Colace Capsule PO Not Given Q12HR TIRSO Duloxetine HCl 30 mg 06/11/19 09:00 06/13/19 08:14 Cymbalta PO 30 mg DAILY TIRSO Administration Finasteride 5 mg 06/11/19 09:00 06/13/19 08:14 Proscar PO 5 mg DAILY TIRSO Administration Gabapentin 300 mg 06/10/19 22:00 06/13/19 05:37 Neurontin PO 300 mg Q8HR TIRSO Administration Sodium Chloride 1,000 mls @ 0 mls/hr 06/10/19 14:10 06/13/19 06:55 Normal Saline Iv IV CONT 75 mls/hr .[id number] TIRSO Administration KVO Lactated Ringer's 1,000 mls @ 150 mls/hr 06/13/19 07:05 Lr - Lactated Ringers Iv IV CONT .[id number] TIRSO Loratadine 10 mg 06/11/19 09:00 06/13/19 08:14 Claritin PO 10 mg DAILY TIRSO Administration Multivitamins/Calcium 1 tablet 06/11/19 09:00 06/13/19 08:15 Therapeutic Multivitamins/Minerals PO 1 tablet DAILY TIRSO Administration On
[2019-06-13 11:55] LABS: Glucose Point of Care 177 (65-105)
--- NOTE | 2019-06-13 12:57 | WPDONCPN ---
Progress Note: A/P - Additional Plan Thrombocytopenia. Platelet antibodies are pending. Patient does have mild splenomegaly. 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 Platelet count has been improving since methotrexate has been on hold. We will continue to hold methotrexate. I do not see need for bone marrow biopsy at this time. Patient will follow-up with us as an outpatient for CBC monitoring and possible bone marrow biopsy if needed. Anemia. Patient is going to have EGD and colonoscopy today. He will continue Procrit 63494 units on a weekly basis. Patient will schedule follow-up appointment for continuation of Procrit injections. - Time Spent With Patient Total time spent is greater than 50% in coordination of care (as documented) at patient's floor/unit and/or counseling patient: 15 - 25 minutes Subjective Interval history: Thrombocytopenia Anemia GI bleed Methotrexate toxicity Review of Systems - Review of Systems Patient remains tired and weak. He denies any bleeding and bruising. He denies any chest pain and shortness of breath. Denies any abdominal pain. No other new complaints - Neurologic Reports hearing normal, Denies headache(s), Denies weakness Exam Vital signs: Temp Pulse Resp BP Pulse Ox 37.2 C 79 18 134/59 L 94 06/13/19 08:13 06/13/19 08:14 06/13/19 08:13 06/13/19 08:13 06/13/19 08:13 Narrative: Lungs are clear to auscultation bilaterally Cardiovascular regular rate rhythm no murmurs Abdomen soft nontender nondistended bowel sounds are positive Extremities no edema PN: Objective Data - Labs CBC & Chem 7: 06/13/19 04:35 06/13/19 04:35 Labs: Laboratory Results - last 24 hr 06/12/19 06/13/19 06/13/19 20:33 04:35 04:35 WBC 11.8 H RBC 2.54 L Hgb 8.7 L Hct 25.2 L MCV 99.2 MCH 34.3 H MCHC 34.5 RDW 23.0 H Plt Count 56 L D MPV 11.8 H Immature Gran % (Auto) 1.5 H Neut % (Auto) 85.4 H Lymph % (Auto) 6.0 L Burt % (Auto) 5.5 Eos % (Auto) 1.5 Baso % (Auto) 0.1 L Lymph # (Auto) 0.71 L Burt # (Auto) 0.7 H Eos # (Auto) 0.2 Baso # (Auto) 0.0 Abs Immat Gran (auto) 0.18 H Absolute Neuts (auto) 10.1 H Absolute Nucleated RBC 0.0 Nucleated RBC % 0.2 % Immature Plt Fraction 5.3 Sodium 137 Potassium 3.8 Chloride 107 Carbon Dioxide 26 BUN 38 H Creatinine 1.70 H Estim Creat Clear Calc 35 Estimated GFR 39 L Glucose 145 H POC Capillary Glucose 192 H Calcium 7.9 L Total Bilirubin 0.7 AST 31 ALT 44 Alkaline Phosphatase 56 Total Protein 6.0 L Albumin 3.0 L 06/13/19 06/13/19 08:06 11:45 WBC RBC Hgb Hct MCV MCH MCHC RDW Plt Count MPV Immature Gran % (Auto) Neut % (Auto) Lymph % (Auto) Burt % (Auto) Eos % (Auto) Baso % (Auto) Lymph # (Auto) Burt # (Auto) Eos # (Auto) Baso # (Auto) Abs Immat Gran (auto) Absolute Neuts (auto) Absolute Nucleated RBC Nucleated RBC % % Immature Plt Fraction Sodium Potassium Chloride Carbon Dioxide BUN Creatinine Estim Creat Clear Calc Estimated GFR Glucose POC Capillary Glucose 169 H 177 H Calcium Total Bilirubin AST ALT Alkaline Phosphatase Total Protein Albumin
[2019-06-13] MEDS: LACTATED RINGERS 1,000 ML 150 ML IV CONT (14:49)
--- NOTE | 2019-06-13 14:54 | WPDANESEPPF ---
Anes - Initial Pre Proc Eval Procedure: Operation Date: 06/13/19 15:45 Proposed Procedures p Esophagogastroduodenoscopy & Colonoscopy - Nick Jimenez MD Date/Time: 06/13/19 14:54 Surgeon: Willis Shaikh MD Pre Op Diagnosis: Anemia, GI bleed, Thrombocytopenia, Acute on Patient Data Age: 84 Gender: M Height: 6 ft 2 in Weight: 90.4 kg Last Vital Signs Temp 36.3 C L 06/13/19 14:43 Pulse 73 06/13/19 14:43 Resp 18 06/13/19 14:43 BP 138/60 06/13/19 14:43 Pulse Ox 99 06/13/19 14:43 Allergies Allergy/AdvReac Type Severity Reaction Status Date / Time Sulfa (Sulfonamide AdvReac Hives Verified 02/04/19 15:48 Antibiotics) Home Medications Medication Instructions Recorded Confirmed Type amlodipine 5 mg PO DAILY 02/04/19 06/10/19 History aspirin [Aspir-81] 81 mg PO DAILY 02/04/19 06/10/19 History duloxetine 30 mg PO DAILY 02/04/19 06/10/19 History furosemide 20 mg PO DAILY 02/04/19 06/10/19 History loratadine 10 mg PO DAILY 02/04/19 06/10/19 History gabapentin 300 mg capsule 300 mg PO TID #270 cap 03/09/19 06/10/19 Rx glipizide 2.5 mg-metformin 250 mg 1 tablet PO DAILY #60 tablet 03/30/19 06/10/19 Rx tablet carvedilol 6.25 mg tablet 6.25 mg PO BID #180 tablet 05/15/19 06/10/19 Rx Ca-D3-mag wv-qqab-uph-lucrecia-bor 1 tablet PO DAILY 06/10/19 06/10/19 History [Calcium 600-D3 Plus (mag-zinc)] acetaminophen [Tylenol 8 Hour] 650 mg PO Q12H 06/10/19 06/10/19 History docusate sodium 100 mg PO BID 06/10/19 06/10/19 History finasteride 5 mg PO DAILY 06/10/19 06/10/19 History methotrexate sodium 2.5 mg PO 3XW 06/10/19 06/10/19 History qdcmjviv-bji-cqcap-vit K-lycop 1 tablet PO DAILY 06/10/19 06/10/19 History [Men's 50 Plus Multivitamin] tamsulosin 0.4 mg PO DAILY 06/10/19 06/10/19 History vitamin B complex [Super B-50 1 cap PO DAILY 06/10/19 06/10/19 History Complex] Laboratory Tests 06/12/19 06/13/19 06/13/19 20:33 04:35 04:35 WBC 11.8 K/mm3 H K/mm3 (4.5-10.0) RBC 2.54 M/mm3 L M/mm3 (4.6-6.20) Hgb 8.7 g/dL L g/dL (14.0-18.0) Hct 25.2 % L % (42.0-52.0) MCV 99.2 fl fl (80-100) MCH 34.3 pg H pg (26-34) MCHC 34.5 g/dl g/dl (32-36) RDW 23.0 % H % (11.5-14.5) Plt Count 56 k/mm3 L D k/mm3 (150-375) MPV 11.8 fl H fl (7.4-10.4) Immature Gran % (Auto) 1.5 % H % (0-0.5) Neut % (Auto) 85.4 % H % (45.5-73.1) Lymph % (Auto) 6.0 % L % (18.3-44.2) Shannon % (Auto) 5.5 % % (2.6-8.5) Eos % (Auto) 1.5 % % (0-4.4) Baso % (Auto) 0.1 % L % (0.2-1.2) Lymph # (Auto) 0.71 K/mm3 L K/mm3 (0.9-3.2) Shannon # (Auto) 0.7 K/mm3 H K/mm3 (0.1-0.6) Eos # (Auto) 0.2 K/mm3 K/mm3 (0-0.3) Baso # (Auto) 0.0 K/mm3 K/mm3 (0.0-0.1) Abs Immat Gran (auto) 0.18 K/mm3 H K/mm3 (0.00-0.031) Absolute Neuts (auto) 10.1 K/mm3 H K/mm3 (1.3-6.7) Absolute Nucleated RBC 0.0 K/mm3 K/mm3 (0.0-0.012) Nucleated RBC % 0.2 % % (0.0-0.2) % Immature Plt Fraction 5.3 % % (0.9-11.2) Sodium 137 mmol/L mmol/L (137-145) Potassium 3.8 mmol/L mmol/L (3.4-5.0) Chloride 107 mmol/L mmol/L (98-107) Carbon Dioxide 26 mmol/L mmol/L (22-30) BUN 38 mg/dL H mg/dL (9-20) Creatinine 1.70 mg/dL H mg/dL (0.7-1.3) Estim Creat Clear Calc 35 ml/min ml/min Estimated GFR 39 L (59 - ) Glucose 145 mg/dL H mg/dL (75-110) POC Capillary Glucose 192 mg/dl H mg/dl (65-105) Calcium 7.9 mg/dL L mg/dL (8.4-10.2) Total Bilirubin 0.7 mg/dL mg/dL (0.2-1.3) AST 31 U/L U/L (17-59) ALT 44 U/L U/L (4-50) Alkaline Phosphatase 56 U/L U/L (38-126) Total Protein 6.0 g/dL L g/dL (6.3-8.2) Albumin 3.0
[2019-06-13 17:48] LABS: Glucose Point of Care 161 (65-105)
--- NOTE | 2019-06-13 18:15 | PM.IMPN ---
Progress Note: A&P Assessment and Plan (1) Anemia: Code(s): D64.9 - Anemia, unspecified Status: Acute Assessment and Plan: 06/13/19 18:15 Megaloblastic anemia. Nutritional deficiencies could possibly lead to patient's megaloblastic anemia however will need to rule out deficiencies in red blood cell production and medication effect given the patient's methotrexate use. To further evaluate patient had check B12 folate and TSH level which are normal, patient was seen by sludge control operator to further evaluate patient a CT scan of abdominal is os insulin no, patient stool Hemoccult was positive patient is seen by GI and recommending colonoscopy as well as EGD because of complaints of dysphagia and sore throat, discussed with hematology suspect megaloblastic anemia and thrombocytopenia most likely secondary to methotrexate which is on hold, patient was seen by GI and was taken to GI lab and had a EGD which showed patient had esophagitis discussed with GI suspect most likely suffered diet is secondary to methotrexate which is on hold, will monitor patient overnight and may discharge the patient home tomorrow morning (2) Acute GI bleeding: Code(s): K92.2 - Gastrointestinal hemorrhage, unspecified Status: Acute Assessment and Plan: Gastroenterology has been consulted. Will monitor serial H&Hs. will transfuse for hemoglobin less than 7. Patient is seen by GI recommending colonoscopy and EGD for further evaluation (3) Thrombocytopenia: Code(s): D69.6 - Thrombocytopenia, unspecified Status: Acute Assessment and Plan: Will monitor for any overt bleeding. The patient does have petechiae with a small amount of bruising from the mucous membranes. Possibly due to methotrexate use. Will repeat platelet count with a.m. labs. Today platelet counts is 36, will have a low threshold for transfusion. (4) Acute on chronic renal insufficiency: Code(s): N28.9 - Disorder of kidney and ureter, unspecified; N18.9 - Chronic kidney disease, unspecified Status: Acute Assessment and Plan: Likely at least in part due to BPH. Patient has been started on IV fluids and we will continue the patient's home finasteride and Flomax. Repeat electrolyte panel in a.m. will do the kidney ultrasound and have Nephrology see the patient. (5) Dementia: Qualifiers: Dementia type: unspecified type Dementia behavioral disturbance: without behavioral disturbance Qualified Code(s): F03.90 - Unspecified dementia without behavioral disturbance Code(s): F03.90 - Unspecified dementia without behavioral disturbance Status: Acute Assessment and Plan: Patient is intermittently confused. It sounds as if this is been symptoms that have gotten progressively worse over time. The patient likely has dementia. Patient clinically stable B12, folic acid and TSH are normal Subjective Date/time seen: 06/13/19 18:15 Megaloblastic anemia. Nutritional deficiencies could possibly lead to patient's megaloblastic anemia however will need to rule out deficiencies in red blood cell production and medication effect given the patient's methotrexate use. To further evaluate patient had check B12 folate and TSH level which are normal, patient was seen by sludge control operator to further evaluate patient a CT scan of abdominal is os insulin no, patient stool Hemoccult was positive patient is seen by GI and recommending colonoscopy as well as EGD because of complaints of dysphagia and sore throat, discussed with hematology suspect megaloblastic anemia and thrombocytopenia most likely secondary to methotrexate which is on hold, patient was seen by GI and was taken to GI lab and had a EGD which showed patient had esophagitis discussed with GI suspect most likely suffered diet is secondary to methotrexate which is on hold, will monitor patient overnight and may discharge the patient home tomorrow morning Review of Systems Review of Systems
[2019-06-13] MEDS: SUCRALFATE SUSP 100 MG/ML 10 ML UDC 1000 MG PO (20:27)
[2019-06-13] MEDS: PANTOPRAZOLE 40 MG TABLET PO (20:27)
[2019-06-13] MEDS: DOCUSATE SODIUM 100 MG CAPSULE PO (20:27)
[2019-06-13 21:45] LABS: Glucose Point of Care 184 (65-105)
--- NOTE | 2019-06-13 22:07 | PC.NURSE ---
This patient, Dell Leon Sr., was transferred to [ [id number]] on 06/13/19 at 2207. Personal belongings sent with patient. Belongings list checked and signed with receiving [ ]. Report given to [Osiris FRITZ ]. Appropriate documentation sent with patient.
--- NOTE | 2019-06-13 22:44 | PC.NURSE ---
This patient, Dell Leon , was received from [U [id number] ] on 06/13/19 at 2205. Personal belongings list checked and signed. Patient/family oriented to unit policies and routines
[2019-06-14] MEDS: SUCRALFATE SUSP 100 MG/ML 10 ML UDC 1000 MG PO ×2 (05:39→12:34)
[2019-06-14] MEDS: GABAPENTIN 300 MG CAPSULE PO (05:39)
[2019-06-14 05:58] LABS: Basophils Percent Auto 0.1 % (0.2-1.2); Eosinophils Absolute Auto 0.1 K/mm3 (0-0.3); Eosinophils Percent Auto 1.4 % (0-4.4); Hematocrit 24.2 % (42.0-52.0); Hemoglobin 8.1 g/dL (14.0-18.0); Immature Granulocyte Absolute 0.17 K/mm3 (0.00-0.031); Lymphocytes Absolute Auto 0.62 K/mm3 (0.9-3.2); Lymphocytes Percent Auto 7.5 % (18.3-44.2); Mean Corpuscular HGB Conc 33.5 g/dl (32-36); Mean Corpuscular Volume 101.7 fl (80-100); Mean Platelet Volume 12.2 fl (7.4-10.4); Monocytes Absolute Auto 0.7 K/mm3 (0.1-0.6); Monocytes Percent Auto 8.3 % (2.6-8.5); Neutrophils Absolute Auto 6.7 K/mm3 (1.3-6.7); Neutrophils Percent Auto 80.7 % (45.5-73.1); Platelet Count Result 68 k/mm3 (150-375); Red Blood Count 2.38 M/mm3 (4.6-6.20); Red Cell Distribution Width 23.8 % (11.5-14.5); White Blood Count 8.3 K/mm3 (4.5-10.0)
[2019-06-14 06:15] LABS: Alanine Aminotransferase 34 U/L (4-50); Albumin Level 2.9 g/dL (3.5-5.1); Alkaline Phosphatase 55 U/L (38-126); Aspartate Amino Transferase 25 U/L (17-59); Bilirubin,Total 0.7 mg/dL (0.2-1.3); Blood Urea Nitrogen 34 mg/dL (9-20); Calcium 8.3 mg/dL (8.4-10.2); Carbon Dioxide 26 mmol/L (22-30); Chloride 109 mmol/L (98-107); Estimated CRCL calculation 32 ml/min; Estimated Glomerular Filt Rate 34; Glucose 158 mg/dL (75-110); Potassium 3.6 mmol/L (3.4-5.0); Sodium 137 mmol/L (137-145)
[2019-06-14 07:55] VITALS: BP 153/66; PULSE 78; RESP 20; TEMP 37.2; O2SAT 99
--- NOTE | 2019-06-14 08:30 | WPDANESPN ---
Anes - Prog Note Post-Op Date/Time: 06/14/19 08:30 Cardiovascular status: normal Respiratory status: normal Airway patency: baseline Mental status: baseline Post-Op hydration status: normal Vital Signs: Last Vital Signs Temp 98.9 F 06/14/19 07:55 Pulse 78 06/14/19 07:55 Resp 20 06/14/19 07:55 BP 153/66 H 06/14/19 07:55 Pulse Ox 99 06/14/19 07:55 I/O: Intake & Output 06/13/19 06/14/19 06/14/19 23:59 07:59 15:59 Intake Total 155 497 Output Total 1300 400 Balance -1145 97 Laboratory Tests 06/14/19 04:41 06/14/19 04:41 06/13/19 06/13/19 06/13/19 08:06 11:45 17:46 WBC RBC Hgb Hct MCV MCH MCHC RDW Plt Count MPV Immature Gran % (Auto) Neut % (Auto) Lymph % (Auto) [place] % (Auto) Eos % (Auto) Baso % (Auto) Lymph # (Auto) [place] # (Auto) Eos # (Auto) Baso # (Auto) Abs Immat Gran (auto) Absolute Neuts (auto) Absolute Nucleated RBC Nucleated RBC % Sodium Potassium Chloride Carbon Dioxide BUN Creatinine Estim Creat Clear Calc Estimated GFR Glucose POC Capillary Glucose 169 H 177 H 161 H Calcium Total Bilirubin AST ALT Alkaline Phosphatase Total Protein Albumin 06/13/19 06/14/19 06/14/19 21:43 04:41 04:41 WBC 8.3 RBC 2.38 L Hgb 8.1 L Hct 24.2 L MCV 101.7 H MCH 34.0 MCHC 33.5 RDW 23.8 H Plt Count 68 L MPV 12.2 H Immature Gran % (Auto) 2.0 H Neut % (Auto) 80.7 H Lymph % (Auto) 7.5 L [place] % (Auto) 8.3 Eos % (Auto) 1.4 Baso % (Auto) 0.1 L Lymph # (Auto) 0.62 L [place] # (Auto) 0.7 H Eos # (Auto) 0.1 Baso # (Auto) 0.0 Abs Immat Gran (auto) 0.17 H Absolute Neuts (auto) 6.7 Absolute Nucleated RBC 0.0 Nucleated RBC % 0.0 Sodium 137 Potassium 3.6 Chloride 109 H Carbon Dioxide 26 BUN 34 H Creatinine 1.90 H Estim Creat Clear Calc 32 Estimated GFR 34 L Glucose 158 H POC Capillary Glucose 184 H Calcium 8.3 L Total Bilirubin 0.7 AST 25 ALT 34 Alkaline Phosphatase 55 Total Protein 5.0 L Albumin 2.9 L Patient Feedback: Patient satisfied with anesthetic care.
[2019-06-14 09:13] LABS: Glucose Point of Care 147 (65-105)
[2019-06-14] MEDS: LORATADINE 10 MG TABLET PO (09:37)
[2019-06-14] MEDS: DULOXETINE HCL 30 MG CAPSULE.DR PO (09:37)
[2019-06-14] MEDS: DOCUSATE SODIUM 100 MG CAPSULE PO (09:37)
[2019-06-14] MEDS: AMLODIPINE BESYLATE 5 MG TABLET 10 MG PO (09:38)
[2019-06-14] MEDS: THERAPEUTIC MULTIVITAMINS/MINERALS TAB (*BKC) 1 TABLET PO (09:38)
[2019-06-14] MEDS: FINASTERIDE 5 MG TABLET PO (09:38)
[2019-06-14] MEDS: PANTOPRAZOLE 40 MG TABLET PO (09:38)
[2019-06-14] MEDS: VITAMIN B COMPLEX CAPSULE 1 CAP PO (09:38)
[2019-06-14] MEDS: carvediloL 6.25 MG TABLET PO (09:38)
[2019-06-14] MEDS: TAMSULOSIN HCL 0.4 MG CAPSULE PO (09:38)
[2019-06-14 12:35] VITALS: PULSE 80; O2SAT 94
[2019-06-14 12:40] VITALS: PULSE 96; O2SAT 90
[2019-06-14 12:50] VITALS: PULSE 82; O2SAT 93
[2019-06-14 12:53] LABS: Glucose Point of Care 214 (65-105)
--- NOTE | 2019-06-14 13:08 | PCRCNOTE ---
HOME O2 EVAL COMPLETE, NO REQUIREMENTS.
--- NOTE | 2019-06-14 15:56 | PM.DS ---
DS: Diagnosis Admitting Diagnosis Admitting Diagnosis: Anemia, unspecified Discharge Diagnosis (1) Anemia: Code(s): D64.9 - Anemia, unspecified Status: Acute Assessment and Plan: Megaloblastic anemia. Nutritional deficiencies could possibly lead to patient's megaloblastic anemia ? deficiencies in red blood cell production or medication pt uses methotrexate use. To further evaluate patient had check B12 folate and TSH level which are normal, patient was seen by patient care technician instructor to further evaluate patient a CT scan of abdominal patient stool Hemoccult was positive patient is seen by GI and recommending colonoscopy as well as EGD because of complaints of dysphagia. EGD shows gastritis, PPI started on discharge. Methotrexate stopped as it may be causig sore throat. (2) Acute GI bleeding: Code(s): K92.2 - Gastrointestinal hemorrhage, unspecified Status: Acute Assessment and Plan: Gastroenterology has been consulted. Pt sp colonscopy and EGD (3) Thrombocytopenia: Code(s): D69.6 - Thrombocytopenia, unspecified Status: Acute Assessment and Plan: Will monitor for any overt bleeding. The patient does have petechiae with a small amount of bruising from the mucous membranes. Possibly due to methotrexate use. Methotrexate stopped prior to discharge. (4) Acute on chronic renal insufficiency: Code(s): N28.9 - Disorder of kidney and ureter, unspecified; N18.9 - Chronic kidney disease, unspecified Status: Acute Assessment and Plan: Likely at least in part due to BPH. Patient to follow urology on discharge. (5) Dementia: Qualifiers: Dementia behavioral disturbance: without behavioral disturbance Dementia type: unspecified type Qualified Code(s): F03.90 - Unspecified dementia without behavioral disturbance Code(s): F03.90 - Unspecified dementia without behavioral disturbance Status: Acute Assessment and Plan: Patient is intermittently confused. MV and B12 recommended on discharge. DS: Summary Time Spent with Patient Time attestation: Total time spent providing and/or coordinating discharge services:38 minutes on day of discharge Exam Narrative: Exam Narrative: Elderly frail Const: General: comfortable and no acute distress HENMT: General nose exam: Normal nares present Mouth: Yes moist mucous membranes Eyes: General: appearance normal, both eyes and all related structures Sclera: sclerae normal Neck: Neck: supple Resp: Effort & Inspection: normal respiratory effort Auscultation: clear to auscultation bilaterally Cardio: Rate: regular rate Rhythm: regular rhythm GI: Auscultation: normal bowel sounds Skin: General skin exam: normal color and no rashes or lesions noted Neuro: Speech: normal speech Sensory Exam: normal sensation Extrem: General: normal to inspection Psych: Mental Status: mental status grossly normal Affect: normal affect and Anxious affect present DS: Data Data Completed and Pending Pending studies at discharge: Pending at discharge 06/13/19 17:10 Surgical [PTH] Routine Labs on day of discharge: Labs from last 24 hours 06/14/19 06/14/19 06/14/19 12:48 09:11 04:41 WBC RBC Hgb Hct MCV MCH MCHC RDW Plt Count MPV Immature Gran % (Auto) Neut % (Auto) Lymph % (Auto) [place] % (Auto) Eos % (Auto) Baso % (Auto) Lymph # (Auto) [place] # (Auto) Eos # (Auto) Baso # (Auto) Abs Immat Gran (auto) Absolute Neuts (auto) Absolute Nucleated RBC Nucleated RBC % Sodium 137 Potassium 3.6 Chloride 109 H Carbon Dioxide 26 BUN 34 H Creatinine 1.90 H Estim Creat Clear Calc 32 Estimated GFR 34 L Glucose 158 H POC Capillary Glucose 214 H 147 H Calcium 8.3 L Total Bilirubin 0.7 AST 25 ALT 34 Alkaline Phosphatase 55 Total Protein 5.0 L Albumin 2.9 L
[2019-06-17 20:21] LABS: Platelet Antibody, Direct IgG NEGATIVE (NEGATIVE)
== END 2019-06-14 14:58 | disposition home or self-care (01) | DRG 378 ==
LOC: ANHED 14:36 → ANHIMU 14:56 → ANH2MED 06-14 10:57 → ANHIMU 06-19 08:30
PROVIDERS: Family Medicine; Internal Medicine; Internal Medicine Gastroenterology; Internal Medicine Hematology & Oncology; Admitting Provider Internal Medicine; Emergency Provider Emergency Medicine; PCP Family Medicine; Visit Provider Family Medicine
PROC: 0DJ08ZZ Inspection of Upper Intestinal Tract, Via Natural or Artificial Opening Endoscopic (ICD-10-PCS; CPT 43235; principal; 2019-06-13 15:45)
DX: K29.71 Gastritis, unspecified, with bleeding (principal); I13.0 Hypertensive heart and chronic kidney disease with heart failure and stage 1 through stage 4 chronic kidney disease, or unspecified chronic kidney disease; D62 Acute posthemorrhagic anemia; N18.4 Chronic kidney disease, stage 4 (severe); I12.9 Hypertensive chronic kidney disease with stage 1 through stage 4 chronic kidney disease, or unspecified chronic kidney disease; L40.9 Psoriasis, unspecified; I50.9 Heart failure, unspecified; R33.9 Retention of urine, unspecified; I71.4 Abdominal aortic aneurysm, without rupture; I35.0 Nonrheumatic aortic (valve) stenosis; E11.42 Type 2 diabetes mellitus with diabetic polyneuropathy; E78.5 Hyperlipidemia, unspecified; N40.0 Benign prostatic hyperplasia without lower urinary tract symptoms; K40.20 Bilateral inguinal hernia, without obstruction or gangrene, not specified as recurrent; D53.1 Other megaloblastic anemias, not elsewhere classified; D69.6 Thrombocytopenia, unspecified; R23.3 Spontaneous ecchymoses; T45.1X5A Adverse effect of antineoplastic and immunosuppressive drugs, initial encounter; N28.9 Disorder of kidney and ureter, unspecified; M19.90 Unspecified osteoarthritis, unspecified site; F32.9 Major depressive disorder, single episode, unspecified; F03.90 Unspecified dementia, unspecified severity, without behavioral disturbance, psychotic disturbance, mood disturbance, and anxiety; Z90.49 Acquired absence of other specified parts of digestive tract; Z87.891 Personal history of nicotine dependence; D63.1 Anemia in chronic kidney disease; R13.10 Dysphagia, unspecified; K21.0 Gastro-esophageal reflux disease with esophagitis; K29.70 Gastritis, unspecified, without bleeding; K64.8 Other hemorrhoids
CPT/HCPCS: 36415; 36430; 71046; 74150; 76770; 80048; 80053; 81001; 82607; 82728; 82746; 83540; 83550; 83605; 83615; 83735; 84443; 85014; 85018; 85025; 85046; 85055; 85610; 85730; 86023; 86850; 86900; 86901; 86923; 87086; 87088; 87804; 88305; 94618; 96360; 96361; 97116; 97161; 97165; 97530; 97535; 99285; A9270; G0378; J2405; J7030; J7120; P9016; Q4081

== ENCOUNTER 2019-06-21 16:05 | Outpatient (CLI) | payer MEDICARE, SELFPAY ==
--- NOTE | ~2019-06-21 | XR_ITS ---
XR chest 2V DATE: 06/21/2019 16:30 INDICATION: Edema. History of cardiac disease. TECHNIQUE: AP and lateral views COMPARISON: 06/10/2019 PA and lateral chest FINDINGS: There is mild pulmonary vascular congestion compared to 06/10/2019. There is prominence of th e fissures compared to 06/10/2019. There are interval infiltrates in the right central and both lower l adri zones, right greater than left, as well as interval small pleural effusions, right greater than l eft. Superimposed pneumonia or aspiration are not excluded. There is stable mild volume loss of the right lung compared to the left lung, as on 06/10/2019. There is aortic calcification. Heart size. Appears borderline. Diffuse osteopenia. IMPRESSION: Congestive changes and bilateral infiltrates, right greater than left, bilateral pleural effusions, subpleural edema. Findings are new since 06/10/2019 and suggest congestive heart failure and pulmonary edema. The proposed pneumonia or aspiration cannot be excluded Reviewed, dictated and finalized at location B. IMPRESSION: Congestive changes and bilateral infiltrates, right greater than le ft, bilateral pleural effusions, subpleural edema. Findings are new since 020 and suggest congestive heart failure and pulmonary edema. The proposed pneu monia or aspiration cannot be excluded
== END 2019-06-21 16:06 | disposition home or self-care (01) ==
LOC: ANHIMG 16:14
PROVIDERS: PCP Family Medicine; Visit Provider Family Medicine
DX: R60.9 Edema, unspecified (principal); J90 Pleural effusion, not elsewhere classified; R91.8 Other nonspecific abnormal finding of lung field
CPT/HCPCS: 71046

== ENCOUNTER 2019-06-22 14:01 | Observation (INO) | payer MEDICARE, SELFPAY ==
[2019-06-22] VITALS (11 sets, daily range): BP systolic 131–200; BP diastolic 67–94; PULSE 77–105; RESP 17–20; TEMP 36.1–36.8; O2SAT 90–94; BMI 28.6
--- NOTE | ~2019-06-22 | XR_ITS ---
XR chest 2V DATE: 06/22/2019 15:45 INDICATION: Shortness of breath, dyspnea, swelling in legs. Weakness. History of congestive heart cm lure. TECHNIQUE: AP and lateral views COMPARISON: 06/21/2019 AP and lateral chest FINDINGS: There are persistent bilateral pulmonary infiltrates, predominating in the right central cheng ng field and both lower lung zones, right greater than left. There are bilateral pleural effusions, r ight greater than left. There is prominence of the fissures and pulmonary vasculature and pulmonary interstitium. Cardiomegaly. Aortic calcification. Diffuse osteopenia. IMPRESSION: Congestive heart failure and pulmonary edema and mild pleural effusions; little interval change since 06/21/2019 Reviewed, dictated and finalized at location B. IMPRESSION: Congestive heart failure and pulmonary edema and mild pleural effus ions; little interval change since 06/21/2019
--- NOTE | ~2019-06-22 | US_ITS ---
EXAMINATION: US venous doppler LE EXAM DATE: 06/23/2019 10:34 INDICATION: Bilateral leg edema. TECHNIQUE: Multiple grayscale, color flow and Doppler images of the lower extremity deep venous syste ms bilaterally were obtained and reviewed. There is no prior study for comparison. FINDINGS: Right side: The right common femoral, femoral and profunda veins demonstrate normal color flow, respi ratory variation, augmentation and compressibility. Compressibility, color flow confirmed within the right popliteal, posterior tibial, peroneal, and greater saphenous veins. There is popliteal fossa anechoic cystic structure measuring 3.1 x 2.5 x 0.8 cm. Left side: The left common femoral, femoral and profunda veins demonstrate normal color flow, respira tory variation, augmentation and compressibility. Compressibility, color flow confirmed within the l eft popliteal, posterior tibial, peroneal, and greater saphenous veins. IMPRESSION: 1. No lower extremity deep venous thrombosis bilaterally. 2. Small right Smallwood's cyst. Reviewed, dictated and finalized at location A.
--- NOTE | 2019-06-22 14:09 | ECG_ITS ---
Measurements Intervals [place] Rate: 86 P: 16 MD: 120 QRS: 17 QRSD: 101 T: -2 QT: 340 QTc: 407 Interpretive Statements SINUS RHYTHM WITH SINUS ARRHYTHMIA NONSPECIFIC ST & T-WAVE ABNORMALITY- INF/LAT LEADS BASELINE ARTIFACT- I, II, III, AVR, AVL, AVF, V4-V6 BORDERLINE ECG Electronically Signed On 06-22-2019 14:37:59 CDT by Luke Corado D.O.
[2019-06-22 14:28] LABS: Basophils Absolute Auto 0.1 K/mm3 (0.0-0.1); Basophils Percent Auto 0.8 % (0.2-1.2); Eosinophils Absolute Auto 0.2 K/mm3 (0-0.3); Eosinophils Percent Auto 2.3 % (0-4.4); Hematocrit 30.5 % (42.0-52.0); Hemoglobin 9.6 g/dL (14.0-18.0); Immature Granulocyte Absolute 0.19 K/mm3 (0.00-0.031); Immature Granulocyte Percent A 2.6 % (0-0.5); Lymphocytes Absolute Auto 0.66 K/mm3 (0.9-3.2); Mean Corpuscular HGB Conc 31.5 g/dl (32-36); Mean Corpuscular Hemoglobin 32.3 pg (26-34); Mean Corpuscular Volume 102.7 fl (80-100); Mean Platelet Volume 10.3 fl (7.4-10.4); Monocytes Absolute Auto 0.9 K/mm3 (0.1-0.6); Monocytes Percent Auto 11.8 % (2.6-8.5); Neutrophils Absolute Auto 5.4 K/mm3 (1.3-6.7); Neutrophils Percent Auto 73.5 % (45.5-73.1); Platelet Count Result 516 k/mm3 (150-375); Red Blood Count 2.97 M/mm3 (4.6-6.20); Red Cell Distribution Width 21.6 % (11.5-14.5); White Blood Count 7.3 K/mm3 (4.5-10.0)
[2019-06-22 14:44] LABS: Alanine Aminotransferase 17 U/L (4-50); Albumin Level 3.3 g/dL (3.5-5.1); Alkaline Phosphatase 67 U/L (38-126); Aspartate Amino Transferase 20 U/L (17-59); Bilirubin,Total 0.5 mg/dL (0.2-1.3); Blood Urea Nitrogen 46 mg/dL (9-20); Calcium 8.7 mg/dL (8.4-10.2); Carbon Dioxide 22 mmol/L (22-30); Chloride 110 mmol/L (98-107); Estimated CRCL calculation 32 ml/min; Estimated Glomerular Filt Rate 34; Glucose 231 mg/dL (75-110); Potassium 4.5 mmol/L (3.4-5.0); Sodium 138 mmol/L (137-145)
--- NOTE | 2019-06-22 14:48 | ED.GENADULT ---
HPI - General Adult General Chief complaint: Unspecified Stated complaint: sob/weakness Time Seen by Provider: 06/22/19 14:47 Source: patient and RN notes reviewed Mode of arrival: ambulatory Limitations: no limitations History of Present Illness HPI narrative: Pt is an 84 y/o male presenting to the ED c/o Related Data Home Medications Medication Instructions Recorded Confirmed amlodipine 5 mg PO DAILY 02/04/19 06/10/19 aspirin [Aspir-81] 81 mg PO DAILY 02/04/19 06/10/19 furosemide 20 mg PO DAILY 02/04/19 06/10/19 loratadine 10 mg PO DAILY 02/04/19 06/10/19 Ca-D3-mag [id number]-lucrecia-bor 1 tablet PO DAILY 06/10/19 06/10/19 [Calcium 600-D3 Plus (mag-zinc)] Men's 50 Plus Multivitamin 1 tablet PO DAILY 06/10/19 06/10/19 acetaminophen [Tylenol 8 Hour] 650 mg PO Q12H 06/10/19 06/10/19 docusate sodium 100 mg PO BID 06/10/19 06/10/19 finasteride 5 mg PO DAILY 06/10/19 06/10/19 tamsulosin 0.4 mg PO DAILY 06/10/19 06/10/19 vitamin B complex [Super B-50 1 cap PO DAILY 06/10/19 06/10/19 Complex] Allergies Allergy/AdvReac Type Severity Reaction Status Date / Time Sulfa (Sulfonamide AdvReac Hives Verified 06/22/19 14:39 Antibiotics) [facility] Social History Social History Social History: The patient reports that he quit smoking about 20 years ago. It sounds as if he smoked at least a pack of cigarettes per day. He reports the used to drink at least a moderate if not larger amount of alcohol but quit drinking 20 years ago. He denies any illicit substance use. He he currently lives with his daughter. Primary care physician: Dr. Veda Corado Code status: Full code per EMR Years smoked: 45 Smoking status: Former smoker Smoking end date: 04/05/99 Alcohol intake: former Substance use: never Additional living arrangements comments: He is and lives with his daughter. 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 Gender identity (if verbalized by the patient): Male Spiritual care concerns: No Agree to blood products: Yes Course Vital Signs Vital signs: Vital Signs Temperature 36.8 C 06/22/19 14:05 Pulse Rate 82 06/22/19 14:05 Respiratory Rate 18 06/22/19 14:05 Blood Pressure 184/86 H 06/22/19 14:05 Pulse Oximetry 93 06/22/19 14:05 Temperature 36.8 C 06/22/19 14:37 Pulse Rate 87 06/22/19 14:37 Respiratory Rate 17 06/22/19 14:37 Blood Pressure 200/92 H 06/22/19 14:37 Pulse Oximetry 92 06/22/19 14:37 Medical Decision Making Vital Signs Vital Signs: Vital Signs Temperature 36.8 C 06/22/19 14:05 Pulse Rate 82 06/22/19 14:05 Respiratory Rate 18 06/22/19 14:05 Blood Pressure 184/86 H 06/22/19 14:05 Pulse Oximetry 93 06/22/19 14:05 Temperature 36.8 C 06/22/19 14:37 Pulse Rate 87 06/22/19 14:37 Respiratory Rate 17 06/22/19 14:37 Blood Pressure 200/92 H 06/22/19 14:37 Pulse Oximetry 92 06/22/19 14:37 Lab Data Result diagrams: 06/22/19 14:20 06/22/19 14:20 Labs: Lab Results 06/22/19 06/22/19 06/22/19 Range/Units 14:20 14:20 14:20 WBC 7.3 (4.5-10.0) K/mm3 RBC 2.97 L (4.6-6.20) M/mm3 Hgb 9.6 L (14.0-18.0) g/dL Hct 30.5 L (42.0-52.0) % MCV 102.7 H (80-100) fl MCH 32.3 (26-34) pg MCHC 31.5 L (32-36) g/dl RDW 21.6 H (11.5-14.5) % Plt Count 516 H D (150-375) k/mm3 MPV 10.3 (7.4-10.4) fl Immature Gran % (Auto) 2.6 H (0-0.5) % Neut % (Auto) 73.5 H (45.5-73.1) % Lymph % (Auto) 9.0 L (18.3-44.2) % [place] % (Auto) 11.8 H (2.6-8.5) % Eos % (Auto) 2.3 (0-4.4) % Baso % (Auto) 0.8 (0.2-1.2) % Lymph # (Auto) 0.66 L (0.9-3.2) K/mm3 [place] # (Auto) 0.9 H (0.1-0.6) K/mm3 Eos # (Auto) 0.2 (0-0.3) K/mm3 Baso # (Auto) 0.1 (0.0-0.1) K/mm3 Abs Immat Gran (aut
--- NOTE | 2019-06-22 14:59 | ED.SOB ---
HPI - SOB/Dyspnea General Chief Complaint: Unspecified Stated Complaint: sob/weakness Time Seen by Provider: 06/22/19 14:47 Source: patient, family (Daughter at bedside) and RN notes reviewed Mode of arrival: ambulatory Limitations: no limitations History of Present Illness HPI Narrative: Pt is an 84 y/o male presenting to the ED c/o SOB. Pt's daughter at bedside reports the pt has started experiencing SOB with exertion, orthopnea, generalized weakness, BLE swelling, bilateral hand swelling, ABD distention, decreased urination, dry cough, and 1 episode of N/V recently. Per daughter, the pt was discharged from this hospital 1 week ago due to anemia after having a bleeding ulcer. Per daughter, the pt received a blood transfusion during his admission. Pt report he has a Hx of CHF and notes he sees Dr. Corado as his [employer]. Pt's daughter notes the pt was seen by his PCP last week and stated he weighed 231 lbs and was 205 lbs a few weeks ago. Pt denies fever, CP, ABD pain, or dizziness. Pertinent past history: congestive heart failure Onset (ago): unknown Exacerbating factors: lying flat Associated symptoms: cough (Dry), nausea/vomiting and other (Generalized weakness; BLE swelling; Bilateral hand swelling; ABD distention; decreased urination) Related Data Home Medications Medication Instructions Recorded Confirmed amlodipine 5 mg PO DAILY 02/04/19 06/10/19 aspirin [Aspir-81] 81 mg PO DAILY 02/04/19 06/10/19 furosemide 20 mg PO DAILY 02/04/19 06/10/19 loratadine 10 mg PO DAILY 02/04/19 06/10/19 Ca-D3-mag zl-pemx-tkr-lucrecia-bor 1 tablet PO DAILY 06/10/19 06/10/19 [Calcium 600-D3 Plus (mag-zinc)] Men's 50 Plus Multivitamin 1 tablet PO DAILY 06/10/19 06/10/19 acetaminophen [Tylenol 8 Hour] 650 mg PO Q12H 06/10/19 06/10/19 docusate sodium 100 mg PO BID 06/10/19 06/10/19 finasteride 5 mg PO DAILY 06/10/19 06/10/19 tamsulosin 0.4 mg PO DAILY 06/10/19 06/10/19 vitamin B complex [Super B-50 1 cap PO DAILY 06/10/19 06/10/19 Complex] Allergies Allergy/AdvReac Type Severity Reaction Status Date / Time Sulfa (Sulfonamide AdvReac Hives Verified 06/22/19 14:39 Antibiotics) Review of Systems Review of Systems: Narrative: All positive Sx's reported by pt's daughter at bedside. All systems reviewed & are unremarkable except as noted in HPI and below Constitutional: Constitutional: Denies fever(s) and Reports weakness (Generalized) Cardiovascular: Cardiovascular: Denies chest pain Respiratory: Respiratory: Reports cough (Dry), Reports dyspnea on exertion and Reports other (Orthopnea) Gastrointestinal: Gastrointestinal: Denies abdominal pain, Reports nausea, Reports vomiting and Reports other (ABD distention) Genitourinary: Genitourinary: Reports oliguria Musculoskeletal: Musculoskeletal: Reports other (BLE swelling; Bilateral hand swelling) Neurologic: Denies dizziness PMFSH Past Medical History Medical History Abdominal aortic aneurysm Infrarenal abdominal aortic aneurysm measuring 3.4 cm on imaging from February 2019 Acute blood loss anemia Aortic stenosis Echocardiogram December 2018 demonstrated EF of 55-60%, moderate to severe aortic stenosis with valve area of 1 cm, mild to moderate mitral valve regurgitation, mild tricuspid regurgitation Arthritis Bilateral inguinal hernia Bilateral fat containing inguinal hernias noted on CT 02/2019 Chronic kidney disease, stage 3 With creatinine of 1.13 April 2017 Depression Diabetes mellitus Dysphagia History of BPH HLD (hyperlipidemia) Methotrexate adverse reaction Peripheral neuropathy Psoriasis On methotrexate 3 times weekly Sore throat Surgical History Surgical History History of intestinal surgery Tumor on colon removed Family History Family History Other Unknown family medical history Social History Social History (Reviewed
[2019-06-22 15:47] LABS: Magnesium 2.2 mg/dL (1.6-2.3); Phosphorus 3.8 mg/dL (2.5-4.5)
[2019-06-22 16:05] LABS: NT Pro B Type Natriuretic Pept 21000 PG/ML (5-100); Troponin I 0.069 ng/mL (0.000-0.034)
[2019-06-22 16:49] LABS: Add Urine Microscopic? YES; Appearance Urine Clear (Clear); Bilirubin Urine Negative (Negative); Blood Urine Negative (Negative); Color Urine Yellow (Yellow); Glucose Urine UA 2+ mg/dL (Negative); Ketones Urine Negative (Negative); Leukocyte Esterase Ur Negative LEU/UL (Negative); Mucus Urine Rare /lpf; Nitrate Urine Negative (Negative); Protein Urine 3+ mg/dL (Negative); RBC Urine 0-2 /hpf (0-2); Squamous Epithelial Cell Urine Few /hpf (Few); Urobilinogen Urine Negative mg/dL (<2.0); WBC Urine 0-3 /hpf
[2019-06-22] MEDS: FUROSEMIDE INJ 40 MG/4 ML VIAL IV PUSH ×2 (17:07→21:30)
--- NOTE | 2019-06-22 18:00 | PM.IMHP ---
H&P: HPI History of Present Illness Chief complaint: Shortness of breath. Narrative: Dell Leon Sr. is a very pleasant 84-year-old male with moderate to severe aortic stenosis, chronic kidney disease, type 2 diabetes, and hypertension who presented to the emergency department earlier this afternoon for evaluation of shortness of breath. To the hospitalist service and in fact was admitted to us June 10 through 2019. He initially came in with complaints of a sore throat, and ultimately had an upper endoscopy which demonstrated gastritis for which he was started on a PPI. He had been taking methotrexate for psoriasis, and that was held as well due to oral ulcers. During that stay, he did require blood transfusion due to anemia. He felt okay on day of discharge but the following day he felt somewhat weak, and since that time he has become progressively more weak. Over the past several days, he has noted pretty significant swelling in his hands and lower extremities and in fact notes a weight gain of about 25 pounds in several weeks time. He and his daughter mentioned that they had been having a difficult time getting a hold of his doctor for medication refills, and it sounds as though he went at least several days without his Lasix. He is very conscientious regarding his diet, and does not add salt to food. At the time my evaluation he is sitting at the side of the bed eating dinner, and is feeling somewhat better. He denies fever, chills, and sweats. No chest pain, pleuritic pain, or palpitations. He does note orthopnea. No history of venous thromboembolism. He denies nausea and vomiting. No change in urine output. Review of Systems Review of Systems: Narrative: Twelve systems were reviewed with pertinent positives and negatives as per HPI. No fever, chills, or sweats. No cold or flu symptoms. Reports orthopnea. No PND. Gives a history of diabetes, but I do not see that he is on a medication for that. He does take gabapentin, however. No blurry vision, polyuria, or polydipsia. Except as documented, all other systems were reviewed and are negative. [facility] Past Medical History Medical History (Updated 06/22/19 @ 23:12 by Tianna Spain PA-C) Abdominal aortic aneurysm Infrarenal abdominal aortic aneurysm measuring 3.4 cm on imaging from February 2019 Aortic stenosis Echocardiogram December 2018 demonstrated EF of 55-60%, moderate to severe aortic stenosis with valve area of 1 cm, mild to moderate mitral valve regurgitation, mild tricuspid regurgitation Arthritis Bilateral inguinal hernia Bilateral fat containing inguinal hernias noted on CT 02/2019 Chronic anemia Chronic kidney disease, stage 3 Creatinine varies, but baseline seems to be around 1.90. Depression Diabetes mellitus Dysphagia Gastritis Noted on EGD June 2019. History of BPH HLD (hyperlipidemia) Peripheral neuropathy Psoriasis Previously on methotrexate, which was recently stopped due to oral ulcers. Surgical History Surgical History History of intestinal surgery Tumor on colon removed Family History Family History Other Unknown family medical history Social History Social History (Updated 06/22/19 @ 23:09 by Tianna Spain PA-C) Social History: The patient reports that he quit smoking about 20 years ago. It sounds as if he smoked at least a pack of cigarettes per day. He reports the used to drink at least a moderate if not larger amount of alcohol but quit drinking 20 years ago. He denies any illicit substance use. He he currently lives with his daughter in [place]. Daughter Tarah is his emergency contact. He lists is a full code. Years smoked: 45 Smoking status: Former smoker Smoking end date: 04/05/99 Alcohol intake: never Substance use: never Additional living arrangements comments: He is
--- NOTE | 2019-06-22 19:10 | ADMGEN ---
This patient, Dell Leon Sr., was admitted to IMU Room 212-01 at 1725. Patient/family oriented to hospital policies and general routines including ID bracelet, bed and alarms, visiting hours, pain management, procedures, bathroom and other care routines, personal items, smoking policy, room service/diet, and visiting hours. Valuables list has been completed. Information on how to activate the Rapid Response Team has been discussed. Patient/Family are encouraged to report perceived risks to care and to ask questions if they do not understand what they are told or what they should do.
[2019-06-22 19:43] LABS: Troponin I 0.068 ng/mL (0.000-0.034)
[2019-06-22] MEDS: carvediloL 6.25 MG TABLET PO (21:30)
[2019-06-22 22:00] LABS: Troponin I 0.068 ng/mL (0.000-0.034)
[2019-06-23] VITALS (13 sets, daily range): BP systolic 149–180; BP diastolic 62–77; PULSE 72–89; RESP 18–22; TEMP 36–36.4; O2SAT 89–94
[2019-06-23 04:54] LABS: Hematocrit 31.2 % (42.0-52.0); Hemoglobin 9.8 g/dL (14.0-18.0); Mean Corpuscular HGB Conc 31.4 g/dl (32-36); Mean Corpuscular Hemoglobin 32.2 pg (26-34); Mean Corpuscular Volume 102.6 fl (80-100); Mean Platelet Volume 9.8 fl (7.4-10.4); Platelet Count Result 503 k/mm3 (150-375); Red Blood Count 3.04 M/mm3 (4.6-6.20); White Blood Count 7.3 K/mm3 (4.5-10.0)
[2019-06-23 04:59] LABS: Hemoglobin A1C 5.6 % (<5.7)
[2019-06-23 05:03] LABS: Blood Urea Nitrogen 47 mg/dL (9-20); Calcium 8.9 mg/dL (8.4-10.2); Carbon Dioxide 27 mmol/L (22-30); Chloride 109 mmol/L (98-107); Estimated CRCL calculation 30 ml/min; Estimated Glomerular Filt Rate 32; Glucose 177 mg/dL (75-110); Magnesium 2.1 mg/dL (1.6-2.3); Phosphorus 3.8 mg/dL (2.5-4.5); Potassium 4.1 mmol/L (3.4-5.0); Sodium 139 mmol/L (137-145)
[2019-06-23] MEDS: SUCRALFATE SUSP 100 MG/ML 10 ML UDC 1000 MG PO ×3 (05:50→21:57)
[2019-06-23 06:42] LABS: Free T4 Free Thyroxine Reflex 1.11 ng/dL (0.78-2.19)
[2019-06-23] MEDS: carvediloL 6.25 MG TABLET PO ×2 (09:09→21:58)
[2019-06-23] MEDS: VITAMIN B COMPLEX CAPSULE 1 CAP PO (09:09)
[2019-06-23] MEDS: DOCUSATE SODIUM 100 MG CAPSULE PO ×2 (09:09→15:31)
[2019-06-23] MEDS: PANTOPRAZOLE 40 MG TABLET PO ×2 (09:09→21:57)
[2019-06-23] MEDS: GABAPENTIN 300 MG CAPSULE PO ×3 (09:09→18:32)
[2019-06-23] MEDS: AMLODIPINE BESYLATE 5 MG TABLET PO (09:10)
[2019-06-23] MEDS: TAMSULOSIN HCL 0.4 MG CAPSULE PO (09:10)
[2019-06-23] MEDS: FINASTERIDE 5 MG TABLET PO (09:11)
[2019-06-23] MEDS: SPIRONOLACTONE 25 MG TABLET PO (09:11)
[2019-06-23] MEDS: ASPIRIN 81 MG ENTERIC TABLET PO (09:11)
[2019-06-23] MEDS: LORATADINE 10 MG TABLET PO (09:11)
[2019-06-23] MEDS: FUROSEMIDE INJ 40 MG/4 ML VIAL IV PUSH ×2 (09:12→21:57)
[2019-06-23] MEDS: THERAPEUTIC MULTIVITAMINS/MINERALS TAB (*BKC) 1 TABLET PO (09:12)
[2019-06-23 13:23] LABS: Total Triiodothyronine (T3) 0.94 NG/ML (0.97-1.69)
--- NOTE | 2019-06-23 14:20 | PM.IMPN ---
Progress Note: A&P Assessment and Plan (1) CHF exacerbation: Code(s): I50.9 - Heart failure, unspecified Status: Acute Assessment and Plan: Patient short of breath on admission. Chest x[place] [address]. Most likely related to recent blood transfusions in addition to missing several doses of Lasix. Good UOP with the Lasix. I/Os not accurate. Contiue the same (2) Chronic anemia: Code(s): D64.9 - Anemia, unspecified Status: Acute Assessment and Plan: Patient with a macrocytic anemia. hemoglobin 9.6 on admission and stable on repeat. B12 and folate levels normal. Iron studies more consistent with anemia of chronic disease. Continue to monitor hemoglobin. (3) Chronic kidney disease, stage 3: Code(s): N18.3 - Chronic kidney disease, stage 3 (moderate) Status: Acute Assessment and Plan: Creatinine earlier in the month was 1.7-2.5. Creatinine 1.9 on admission here and most likely at baseline. Continue to monitor closely on diuretic therapy. (4) Elevated troponin: Code(s): R79.89 - Other specified abnormal findings of blood chemistry Status: Acute Assessment and Plan: Troponin elevated to 0.069 but flat on repeat values. No evidence of cardiac ischemia. Suspect elevated troponins related to CHF exacerbation and chronic renal failure. (5) Diabetes mellitus: Code(s): E11.9 - Type 2 diabetes mellitus without complications Status: Acute Assessment and Plan: Diet controlled. A1c 5.1. Glucose reviewed on 06/23/2019. Glucose is elevated at times. Continue Accu-Cheks covering with sliding scale insulin. Continue hypoglycemic protocol. (6) Gastritis: Code(s): K29.70 - Gastritis, unspecified, without bleeding Status: Acute Assessment and Plan: EGD on June 12 showing mucositis, reflux esophagitis and ulcerative gastritis. Continue Carafate and Protonix. Subjective Date/time seen: 06/23/19 14:20 Interval history: 84yo male here for SOB and weakness and found to be in CHF. Patient is voiding well.. His SOB is better. Denies chest pain. Eating normally. Exam Narrative: Exam Narrative: AF 149/63 Gen - NARD lying semi recumbent in bed Chest -decreased breath sounds bibasilar with inspiratory rhonchi mid to lower lung [place]. Normal respiratory rate. No conversational dyspnea CV - RRR S1/S2 with a 2/6 systolic murmur in the right upper sternal border that radiated to the carotids Abd - Soft, NT/ND, Positive BS Ext -1+ pedal edema Psych - Nml mood and affect Skin - Warm and dry Objective Data Vital Signs Vital Signs: Vital Signs - 24 hr 06/22/19 14:37 06/22/19 15:54 06/22/19 16:02 Temperature 98.2 F Pulse Rate 87 83 105 H Respiratory Rate 17 17 18 Blood Pressure 200/92 H 175/94 H 131/68 Pulse Oximetry 92 93 94 06/22/19 16:55 06/22/19 18:19 06/22/19 19:55 Temperature 97.9 F 97.0 F L 97.3 F L Pulse Rate 82 83 83 Respiratory Rate 18 17 20 Blood Pressure 186/85 H 161/85 H 179/81 H Pulse Oximetry 94 93 90 06/22/19 20:00 06/22/19 21:30 06/22/19 22:00 Temperature Pulse Rate 83 80 100 Respiratory Rate Blood Pressure Pulse Oximetry 06/22/19 23:55 06/23/19 00:00 06/23/19 02:00 Temperature 97.4 F L Pulse Rate 77 78 73 Respiratory Rate 18 Blood Pressure 162/67 H Pulse Oximetry 93 06/23/19 04:00 06/23/19 06:00 06/23/19 08:00 Temperature 96.9 F L 96.9 F L Pulse Rate 72 84 86 Respiratory Rate 20 22 H Blood Pressure 166/62 H 180/74 H Pulse Oximetry 90 94 06/23/19 09:09 06/23/19 12:00 Temperature 96.8 F L Pulse Rate 85 75 Respiratory Rate 22 H Blood Pressure 149/63 H Pulse Oximetry 89 L Intake/Output Intake/Output: Intake & Output 06/20/19 06/21/19 06/22/19 06/23/19 23:59 23:59 23:59 23:59 Intake Total 440 Output Total 100 700 Balance -100 -260 Meds/Results Medications: Act
[2019-06-23 14:56] LABS: Glucose Point of Care 195 (65-105)
[2019-06-23 16:43] LABS: Glucose Point of Care 229 (65-105)
[2019-06-23] MEDS: INSULIN ASPART (*BKC) 100 UNITS/ML SUB-Q (18:32)
[2019-06-23 22:36] LABS: Glucose Point of Care 184 (65-105)
[2019-06-24] MEDS: SUCRALFATE SUSP 100 MG/ML 10 ML UDC 1000 MG PO ×3 (06:27→15:57)
[2019-06-24 06:37] LABS: Hematocrit 29.4 % (42.0-52.0); Hemoglobin 9.4 g/dL (14.0-18.0); Mean Corpuscular Hemoglobin 32.5 pg (26-34); Mean Corpuscular Volume 101.7 fl (80-100); Mean Platelet Volume 10.2 fl (7.4-10.4); Platelet Count Result 434 k/mm3 (150-375); Red Blood Count 2.89 M/mm3 (4.6-6.20); Red Cell Distribution Width 20.8 % (11.5-14.5); White Blood Count 6.5 K/mm3 (4.5-10.0)
[2019-06-24 06:53] VITALS: BP 187/88; PULSE 75; RESP 18; TEMP 36.7; O2SAT 92
[2019-06-24 07:04] LABS: Blood Urea Nitrogen 44 mg/dL (9-20); Calcium 8.9 mg/dL (8.4-10.2); Carbon Dioxide 27 mmol/L (22-30); Chloride 105 mmol/L (98-107); Estimated CRCL calculation 30 ml/min; Estimated Glomerular Filt Rate 32; Glucose 157 mg/dL (75-110); Potassium 3.8 mmol/L (3.4-5.0); Sodium 136 mmol/L (137-145)
[2019-06-24 08:00] VITALS: PULSE 75; RESP 18; O2SAT 92
[2019-06-24] MEDS: GABAPENTIN 300 MG CAPSULE PO ×3 (08:39→15:56)
[2019-06-24] MEDS: DOCUSATE SODIUM 100 MG CAPSULE PO ×2 (08:39→15:57)
[2019-06-24] MEDS: THERAPEUTIC MULTIVITAMINS/MINERALS TAB (*BKC) 1 TABLET PO (08:39)
[2019-06-24] MEDS: ASPIRIN 81 MG ENTERIC TABLET PO (08:40)
[2019-06-24] MEDS: PANTOPRAZOLE 40 MG TABLET PO (08:40)
[2019-06-24] MEDS: AMLODIPINE BESYLATE 5 MG TABLET PO (08:41)
[2019-06-24] MEDS: FINASTERIDE 5 MG TABLET PO (08:41)
[2019-06-24] MEDS: LORATADINE 10 MG TABLET PO (08:42)
[2019-06-24] MEDS: TAMSULOSIN HCL 0.4 MG CAPSULE PO (08:42)
[2019-06-24] MEDS: VITAMIN B COMPLEX CAPSULE 1 CAP PO (08:42)
[2019-06-24] MEDS: FUROSEMIDE INJ 40 MG/4 ML VIAL IV PUSH (08:43)
[2019-06-24] MEDS: carvediloL 6.25 MG TABLET PO (08:44)
[2019-06-24 14:00] VITALS: BP 118/64; PULSE 67; RESP 20; TEMP 36.3; O2SAT 96
--- NOTE | 2019-06-24 14:21 | PM.DS ---
DS: Diagnosis Admitting Diagnosis Admitting Diagnosis: Heart failure, unspecified Discharge Diagnosis (1) CHF exacerbation: Code(s): I50.9 - Heart failure, unspecified Status: Acute Assessment and Plan: Patient short of breath on admission. Chest x-ray [place] [address]. Most likely related to recent blood transfusions in addition to missing several doses of Lasix. Good UOP but with incontinence making I/Os not accurate. Clinically patient euvolemic. (2) Chronic anemia: Code(s): D64.9 - Anemia, unspecified Status: Acute Assessment and Plan: Patient with a macrocytic anemia. Hemoglobin 9.6 on admission and stable on repeat. B12 and folate levels normal. Iron studies more consistent with anemia of chronic disease (renal disease). (3) Chronic kidney disease, stage 3: Code(s): N18.3 - Chronic kidney disease, stage 3 (moderate) Status: Acute Assessment and Plan: Creatinine earlier in the month was 1.7-2.5. Creatinine 1.9 on admission here and most likely at baseline. Creatinine 2.0 at discharge. (4) Elevated troponin: Code(s): R79.89 - Other specified abnormal findings of blood chemistry Status: Acute Assessment and Plan: Troponin elevated to 0.069 but flat on repeat values. No evidence of cardiac ischemia. Suspect elevated troponins related to CHF exacerbation and chronic renal failure. (5) Diabetes mellitus: Code(s): E11.9 - Type 2 diabetes mellitus without complications Status: Acute Assessment and Plan: A1c 5.1. Glucose monitored closely. Glucose is elevated at times. Accu-Cheks covering with sliding scale insulin. Hypoglycemic protocol available. Given the low A1c, it was opted not to continue his low dose Metformin and Glipizide since would be concerned for hypoglycemia given his renal failure. (6) Gastritis: Code(s): K29.70 - Gastritis, unspecified, without bleeding Status: Acute Assessment and Plan: EGD on June 12 showing mucositis, reflux esophagitis and ulcerative gastritis. He was continued on Carafate and Protonix. DS: Summary Hospital Course Reason for hospitalization: 84yo male here for CHF exacerbation. Please see H&P for details. Hospital Course: As above. Time Spent with Patient Time attestation: Total time spent providing and/or coordinating discharge services:32 minutes Time spent: Greater than 30 minutes Specific discharge activities: Attempted to reach family but no answer at the phone number listed. Exam Narrative: Exam Narrative: AF 149/63 Gen - NARD sleeping while lying flat in bed Chest - few right base rhonchi o/w clear CV - RRR S1/S2 with a 2/6 systolic murmur in the right upper sternal border Abd - Soft, NT/ND, Positive BS Ext - trace pedal edema Psych - Nml mood and affect Skin - Warm and dry DS: Data Data Completed and Pending Labs on day of discharge: Labs from last 24 hours 06/24/19 06/24/19 06/23/19 05:37 05:37 22:00 WBC 6.5 RBC 2.89 L Hgb 9.4 L Hct 29.4 L MCV 101.7 H MCH 32.5 MCHC 32.0 RDW 20.8 H Plt Count 434 H MPV 10.2 Sodium 136 L Potassium 3.8 Chloride 105 Carbon Dioxide 27 BUN 44 H Creatinine 2.00 H Estim Creat Clear Calc 30 Estimated GFR 32 L Glucose 157 H POC Capillary Glucose 184 H Calcium 8.9 06/23/19 06/23/19 16:30 11:53 WBC RBC Hgb Hct MCV MCH MCHC RDW Plt Count MPV Sodium Potassium Chloride Carbon Dioxide BUN Creatinine Estim Creat Clear Calc Estimated GFR Glucose POC Capillary Glucose 229 H 195 H Calcium Discharge Plan Discharge Attending physician on discharge: Willy Villar Discharging Clinician: Willy Villar Anticipated Discharge Date/Time: 06/24/19 14:38 Patient Disposition: Home, Self-Care Activity: as tolerated
[2019-06-24 15:32] LABS: Glucose Point of Care 185 (65-105)
== END 2019-06-24 16:10 | disposition home or self-care (01) ==
LOC: ANHED 16:32 → ANHIMU 16:49 → ANH3MEDSUR 06-23 21:28
PROVIDERS: Physician Assistant; Admitting Provider Hospitalist; Emergency Provider Emergency Medicine; PCP Family Medicine; Visit Provider Internal Medicine
DX: I13.0 Hypertensive heart and chronic kidney disease with heart failure and stage 1 through stage 4 chronic kidney disease, or unspecified chronic kidney disease (principal); I50.9 Heart failure, unspecified; N18.3 Chronic kidney disease, stage 3 (moderate); E11.22 Type 2 diabetes mellitus with diabetic chronic kidney disease; E11.42 Type 2 diabetes mellitus with diabetic polyneuropathy; R79.89 Other specified abnormal findings of blood chemistry; D53.9 Nutritional anemia, unspecified; I35.0 Nonrheumatic aortic (valve) stenosis; K29.70 Gastritis, unspecified, without bleeding; Z87.891 Personal history of nicotine dependence
CPT/HCPCS: 36415; 71046; 80048; 80053; 81001; 83036; 83735; 83880; 84100; 84439; 84443; 84480; 84484; 85025; 85027; 86850; 86900; 86901; 93005; 93970; 96374; 96376; 99285; A9270; G0378; J1815; J1940

== ENCOUNTER 2019-07-03 15:28 | Outpatient (CLI) | payer MEDICARE, SELFPAY ==
[2019-07-03 15:41] LABS: Basophils Percent Auto 0.5 % (0.2-1.2); Eosinophils Absolute Auto 0.2 K/mm3 (0-0.3); Hematocrit 33.3 % (42.0-52.0); Hemoglobin 10.5 g/dL (14.0-18.0); Immature Granulocyte Absolute 0.19 K/mm3 (0.00-0.031); Immature Granulocyte Percent A 2.4 % (0-0.5); Lymphocytes Absolute Auto 0.86 K/mm3 (0.9-3.2); Lymphocytes Percent Auto 10.7 % (18.3-44.2); Mean Corpuscular HGB Conc 31.5 g/dl (32-36); Mean Corpuscular Hemoglobin 32.5 pg (26-34); Mean Corpuscular Volume 103.1 fl (80-100); Mean Platelet Volume 10.6 fl (7.4-10.4); Monocytes Absolute Auto 0.8 K/mm3 (0.1-0.6); Monocytes Percent Auto 9.7 % (2.6-8.5); Neutrophils Percent Auto 74.7 % (45.5-73.1); Platelet Count Result 210 k/mm3 (150-375); Red Blood Count 3.23 M/mm3 (4.6-6.20); Red Cell Distribution Width 19.3 % (11.5-14.5); White Blood Count 8.1 K/mm3 (4.5-10.0)
[2019-07-03 17:01] LABS: Blood Urea Nitrogen 41 mg/dL (9-20); Calcium 8.7 mg/dL (8.4-10.2); Carbon Dioxide 26 mmol/L (22-30); Chloride 102 mmol/L (98-107); Estimated Glomerular Filt Rate 30; Glucose 167 mg/dL (75-110); Potassium 4.8 mmol/L (3.4-5.0); Sodium 135 mmol/L (137-145)
== END 2019-07-03 15:29 | disposition home or self-care (01) ==
LOC: ANHLAB 15:30
PROVIDERS: PCP Family Medicine; Visit Provider Internal Medicine Hematology & Oncology
DX: D64.9 Anemia, unspecified (principal)
CPT/HCPCS: 36415; 80048; 85025

== ENCOUNTER 2019-07-22 11:41 | Emergency (ER) | payer MEDICARE, SELFPAY ==
[2019-07-22 11:59] VITALS: BP 161/67; PULSE 76; RESP 18; TEMP 36.8; O2SAT 97
--- NOTE | 2019-07-22 12:34 | ED.LOWEXIN ---
HPI - Extremity Injury (Lower) General Chief Complaint: Extremity Injury, Lower Stated Complaint: calf leg swollen History of Present Illness HPI Narrative: This is a 87 year old male with extensive cardiac history. Patient is complaining of right calf pain that started two days ago with leg swelling. Patient/ Daughter states that the pain hurts when it is touched or with ambulation and his leg is swollen more than unusual and feels tight. right 17.5 cm measurement left leg measure 15 cm measurement Related Data Home Medications Medication Instructions Recorded Confirmed aspirin [Aspir-81] 81 mg PO DAILY 02/04/19 06/28/19 loratadine 10 mg PO DAILY 02/04/19 06/28/19 Ca-D3-mag ok-cysq-llp-lucrecia-bor 1 tablet PO DAILY 06/10/19 06/28/19 [Calcium 600-D3 Plus (mag-zinc)] Men's 50 Plus Multivitamin 1 tablet PO DAILY 06/10/19 06/28/19 acetaminophen [Tylenol 8 Hour] 650 mg PO Q12H 06/10/19 06/28/19 docusate sodium 100 mg PO BID 06/10/19 06/28/19 finasteride 5 mg PO DAILY 06/10/19 06/28/19 tamsulosin 0.4 mg PO DAILY 06/10/19 06/28/19 vitamin B complex [Super B-50 1 cap PO DAILY 06/10/19 06/28/19 Complex] atorvastatin 07/22/19 linagliptin [Tradjenta] mg 07/22/19 tramadol mg 07/22/19 07/22/19 Allergies Allergy/AdvReac Type Severity Reaction Status Date / Time Sulfa (Sulfonamide AdvReac Hives Verified 06/29/19 10:04 Antibiotics) Review of Systems Review of Systems: Narrative: CONSTITUTIONAL: Denies fever, chills, or sweats. EYES: Denies visual changes, redness, or discharge. ENT: Denies rhinorrhea, congestion, sore throat, or otalgia. CARDIOVASCULAR:Denies chest pain, palpitations, or edema. RESPIRATORY: Denies cough or dyspnea. GASTROINTESTINAL: Denies abdominal pain, nausea, vomiting, or diarrhea. GENITOURINARY: Denies dysuria or hematuria. SKIN:[Denies rash or itching. MUSCULOSKELETAL:Denies back pain, joint pain, or myalgia. Reports right calf pain NEUROLOGIC: Denies headache, numbness, or weakness. PSYCHIATRIC:Denies anxiety or depression PMFSH Social History Social History (Updated 06/22/19 @ 23:09 by Tianna Spain PA-C) Social History: The patient reports that he quit smoking about 20 years ago. It sounds as if he smoked at least a pack of cigarettes per day. He reports the used to drink at least a moderate if not larger amount of alcohol but quit drinking 20 years ago. He denies any illicit substance use. He he currently lives with his daughter in [place]. Daughter Tarah is his emergency contact. He lists is a full code. Years smoked: 45 Smoking status: Former smoker Smoking end date: 04/05/99 Alcohol intake: never Substance use: never Additional living arrangements comments: He is and lives with his daughter. 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 Gender identity (if verbalized by the patient): Male Spiritual care concerns: No Agree to blood products: Yes Comments At time as signature, I have reviewed and agree with nursing past medical, social, surgical and family history. Please see nursing chart for further information. There is no relevant family history pertinent to the presenting complaint. Exam Narrative: Exam Narrative: GENERAL:Well-appearing, well-nourished, and in no acute distress. HEAD:Normocephalic, atraumatic. EYES: PERRLA and EOMI. ENT: Nares clear, no rhinorrhea or epistaxis. Mucous membranes moist. NECK: Supple. CHEST: Clear to auscultation. No respiratory distress. HEART: Regular rate and rhythm. No murmur heard. Normal peripheral pulses. ABDOMEN: Soft, nontender, nondistended, normal active bowel sounds. EXTREMITIES: Normal range of motion. Positive edema bilateral no more than normal right calf pain swelling more than left and is causing him pain patient left circumference 15 cm right is 17.5 cm. SKIN: Warm, dry, no rash. NEURO: No focal d
== END 2019-07-22 12:55 | disposition short-term general hospital (02) ==
PROVIDERS: Emergency Provider Nurse Practitioner Family; PCP Family Medicine
DX: M79.661 Pain in right lower leg (principal); M79.89 Other specified soft tissue disorders; I50.9 Heart failure, unspecified; I13.0 Hypertensive heart and chronic kidney disease with heart failure and stage 1 through stage 4 chronic kidney disease, or unspecified chronic kidney disease; N18.3 Chronic kidney disease, stage 3 (moderate); E11.22 Type 2 diabetes mellitus with diabetic chronic kidney disease; I25.10 Atherosclerotic heart disease of native coronary artery without angina pectoris; I35.0 Nonrheumatic aortic (valve) stenosis; K21.9 Gastro-esophageal reflux disease without esophagitis; N40.0 Benign prostatic hyperplasia without lower urinary tract symptoms; E11.51 Type 2 diabetes mellitus with diabetic peripheral angiopathy without gangrene; Z98.49 Cataract extraction status, unspecified eye; Z87.891 Personal history of nicotine dependence; Z79.82 Long term (current) use of aspirin
CPT/HCPCS: 99212; G0463

== ENCOUNTER 2019-07-22 13:16 | Emergency (ER) | payer MEDICARE, SELFPAY ==
--- NOTE | ~2019-07-22 | US_ITS ---
EXAMINATION: US venous doppler LE RT EXAM DATE: 07/22/2019 14:08 INDICATION: Right leg swelling. TECHNIQUE: Multiple grayscale, color flow and Doppler images of the right lower extremity deep venous system were obtained and reviewed. There is no prior study for comparison. FINDINGS: The right common femoral, femoral and profunda veins demonstrate normal color flow, respira tory variation, augmentation and compressibility. Compressibility, color flow confirmed within the r ight popliteal, posterior tibial, peroneal, and greater saphenous veins. Lymph node with large fatty hilum, measuring 1.6 x 2.5 x 1.1 cm, likely reactive. IMPRESSION: 1. No right lower extremity deep venous thrombosis. Reviewed, dictated and finalized at location A.
--- NOTE | ~2019-07-22 | XR_ITS ---
EXAMINATION: XR chest 2V EXAM DATE: 07/22/2019 14:12 INDICATION: Right leg swelling. CHF. TECHNIQUE: Frontal and lateral projections of the chest obtained and reviewed. Comparison is made to prior examination from 06/22/2019. FINDINGS: There are small bilateral pleural effusions with small amount of adjacent atelectasis, imp rovement in both of these findings compared to prior study. No confluent consolidation or pneumothora x. Cardiomediastinal silhouette is normal. Old right rib fractures. Mild thoracic spondylosis. IMPRESSION: Small pleural effusions, adjacent subsegmental atelectasis with interval improvement. Reviewed, dictated and finalized at location A. IMPRESSION: Small pleural effusions, adjacent subsegmental atelectasis with in terval improvement.
[2019-07-22 13:23] VITALS: BP 180/80; PULSE 76; RESP 18; TEMP 37.1; O2SAT 97
--- NOTE | 2019-07-22 13:29 | ECG_ITS ---
Measurements Intervals [place] Rate: 76 P: 28 MA: 126 QRS: 15 QRSD: 100 T: 108 QT: 391 QTc: 442 Interpretive Statements SINUS RHYTHM ATRIAL AND VENTRICULAR PREMATURE COMPLEXES LEFT VENTRICULAR HYPERTROPHY AND ST-T CHANGE ST-T WAVE ABNORMALITY IN ANTERIOR LEADS- CONSIDER ISCHEMIA BASELINE ARTIFACT- I, III, AVL, V5-V6 ABNORMAL ECG Electronically Signed On 07-22-2019 14:07:54 CDT by Luke Corado D.O.
--- NOTE | 2019-07-22 13:30 | ED.EXTPRO ---
HPI - Extremity Problem General Chief complaint: Extremity Problem,Nontraumatic Stated complaint: increased R calf swelling/ hx chf Time Seen by Provider: 07/22/19 13:19 Source: patient, family and old records reviewed Mode of arrival: ambulatory Limitations: no limitations History of Present Illness HPI Narrative: Patient is an 84-year-old male who presents to the emergency department with complaint of right lower extremity pain and swelling. Patient denies any injury. He states his symptoms started a couple of days ago. Patient has bilateral lower extremity edema from his congestive heart failure. He was recently hospitalized at the end of June for CHF. Daughter reports patient has still not lost all of the increased weight from fluid retention from his CHF. The right lower extremity has become disproportionately swollen compared to the left and is now painful. Patient was seen at [facility] and sent to the emergency department for further evaluation of his symptoms. Patient is denying any chest pain or shortness of breath. Daughter states his breathing has been doing very well, although he did seem a little bit winded to her today. He denies any cough, fever, or other illness symptoms. MD Complaint: extremity pain and extremity swelling Onset (ago): day(s) (Couple) Location: right and lower extremity Associated symptoms: denies other symptoms Context: other (Recent hospitalization 06/21 to 06/23) Related Data Home Medications Medication Instructions Recorded Confirmed aspirin [Aspir-81] 81 mg PO DAILY 02/04/19 06/28/19 loratadine 10 mg PO DAILY 02/04/19 06/28/19 Ca-D3-mag if-lvbb-hsu-lucrecia-bor 1 tablet PO DAILY 06/10/19 06/28/19 [Calcium 600-D3 Plus (mag-zinc)] Men's 50 Plus Multivitamin 1 tablet PO DAILY 06/10/19 06/28/19 acetaminophen [Tylenol 8 Hour] 650 mg PO Q12H 06/10/19 06/28/19 docusate sodium 100 mg PO BID 06/10/19 06/28/19 finasteride 5 mg PO DAILY 06/10/19 06/28/19 tamsulosin 0.4 mg PO DAILY 06/10/19 06/28/19 vitamin B complex [Super B-50 1 cap PO DAILY 06/10/19 06/28/19 Complex] atorvastatin 07/22/19 linagliptin [Tradjenta] mg 07/22/19 tramadol mg 07/22/19 07/22/19 Allergies Allergy/AdvReac Type Severity Reaction Status Date / Time Sulfa (Sulfonamide AdvReac Hives Verified 06/29/19 10:04 Antibiotics) Review of Systems Review of Systems: All systems reviewed & are unremarkable except as noted in HPI and below Constitutional: Constitutional: Denies fever(s) Cardiovascular: Cardiovascular: Denies chest pain Respiratory: Respiratory: Denies cough and Reports dyspnea (Patient denies, daughter reports noticing mild symptoms today) [facility] Surgical History Surgical History History of intestinal surgery 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 It sounds as if he smoked at least a pack of cigarettes per day. He reports the used to drink at least a moderate if not larger amount of alcohol but quit drinking 20 years ago. He denies any illicit substance use. He he currently lives with his daughter in [place]. Daughter Tarah is his emergency contact. He lists is a full code. Years smoked: 45 Smoking status: Former smoker Smoking end date: 04/05/99 Alcohol intake: never Substance use: never Additional living arrangements comments: He is and lives with his daughter. 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 Gender identity (if verbalized by the patient): Male Spiritual care concerns: No Agree to blood products: Yes Exam Const: General: cooperative, no acute distress and alert Nutritional Appearance: obese Orientation/consciousness: patient oriented x3 Limitati
[2019-07-22 13:31] VITALS: BP 172/83; PULSE 76; RESP 19; O2SAT 97
[2019-07-22 13:51] LABS: Basophils Percent Auto 0.4 % (0.2-1.2); Eosinophils Absolute Auto 0.6 K/mm3 (0-0.3); Eosinophils Percent Auto 7.4 % (0-4.4); Hematocrit 30.2 % (42.0-52.0); Hemoglobin 9.8 g/dL (14.0-18.0); Immature Granulocyte Absolute 0.05 K/mm3 (0.00-0.031); Immature Granulocyte Percent A 0.6 % (0-0.5); Lymphocytes Absolute Auto 1.18 K/mm3 (0.9-3.2); Lymphocytes Percent Auto 14.5 % (18.3-44.2); Mean Corpuscular HGB Conc 32.5 g/dl (32-36); Mean Corpuscular Volume 98.7 fl (80-100); Mean Platelet Volume 11.1 fl (7.4-10.4); Monocytes Absolute Auto 0.7 K/mm3 (0.1-0.6); Monocytes Percent Auto 8.6 % (2.6-8.5); Neutrophils Absolute Auto 5.6 K/mm3 (1.3-6.7); Neutrophils Percent Auto 68.5 % (45.5-73.1); Platelet Count Result 167 k/mm3 (150-375); Red Blood Count 3.06 M/mm3 (4.6-6.20); Red Cell Distribution Width 16.5 % (11.5-14.5); White Blood Count 8.1 K/mm3 (4.5-10.0)
[2019-07-22 14:00] LABS: Prothrombin Time 13.1 Seconds (11.1-14.7)
[2019-07-22 14:12] LABS: Alanine Aminotransferase 10 U/L (4-50); Albumin Level 3.7 g/dL (3.5-5.1); Alkaline Phosphatase 61 U/L (38-126); Aspartate Amino Transferase 21 U/L (17-59); Bilirubin,Total 0.6 mg/dL (0.2-1.3); Blood Urea Nitrogen 57 mg/dL (9-20); Calcium 8.9 mg/dL (8.4-10.2); Carbon Dioxide 22 mmol/L (22-30); Chloride 106 mmol/L (98-107); Estimated CRCL calculation 30 ml/min; Estimated Glomerular Filt Rate 30; Glucose 98 mg/dL (75-110); Potassium 4.7 mmol/L (3.4-5.0); Sodium 136 mmol/L (137-145)
[2019-07-22 14:20] VITALS: BP 152/72; PULSE 72; RESP 9; O2SAT 95
[2019-07-22 14:21] LABS: NT Pro B Type Natriuretic Pept 10900 PG/ML (5-100)
[2019-07-22] MEDS: FUROSEMIDE INJ 40 MG/4 ML VIAL IV PUSH (15:18)
== END 2019-07-22 15:36 | disposition home or self-care (01) ==
PROVIDERS: Emergency Provider Emergency Medicine; PCP Family Medicine
DX: R60.0 Localized edema (principal); I50.9 Heart failure, unspecified; Z87.891 Personal history of nicotine dependence
CPT/HCPCS: 36415; 71046; 80053; 83880; 85025; 85610; 85730; 93005; 93971; 96374; 99284; J1940

== ENCOUNTER 2019-12-12 11:46 | Emergency (ER) | payer MEDICARE, SELFPAY ==
--- NOTE | 2019-12-12 11:57 | ED.GENADULT ---
HPI - General Adult General Chief complaint: Unspecified Stated complaint: CHF Time Seen by Provider: 12/12/19 11:58 Source: patient and RN notes reviewed Mode of arrival: ambulatory Limitations: no limitations History of Present Illness HPI narrative: 84-year-old male with history of congestive heart failure and short-term memory loss presents with concern for shortness of breath. His daughter reports he started breathing fast this morning. He denies any extremity swelling, pain. Denies cough. Denies fever, rhinorrhea, nasal congestion. MD complaint: Shortness of breath Related Data Home Medications Medication Instructions Recorded Confirmed aspirin [Aspir-81] 81 mg PO DAILY 02/04/19 06/28/19 loratadine 10 mg PO DAILY 02/04/19 06/28/19 Ca-D3-mag rw-cuey-vts-lucrecia-bor 1 tablet PO DAILY 06/10/19 06/28/19 [Calcium 600-D3 Plus (mag-zinc)] Men's 50 Plus Multivitamin 1 tablet PO DAILY 06/10/19 06/28/19 acetaminophen [Tylenol 8 Hour] 650 mg PO Q12H 06/10/19 06/28/19 docusate sodium 100 mg PO BID 06/10/19 06/28/19 finasteride 5 mg PO DAILY 06/10/19 12/12/19 tamsulosin 0.4 mg PO DAILY 06/10/19 12/12/19 vitamin B complex [Super B-50 1 cap PO DAILY 06/10/19 06/28/19 Complex] atorvastatin 07/22/19 linagliptin [Tradjenta] mg 07/22/19 tramadol mg 07/22/19 07/22/19 Allergies Allergy/AdvReac Type Severity Reaction Status Date / Time Sulfa (Sulfonamide AdvReac Hives Verified 12/12/19 11:57 Antibiotics) Review of Systems Review of Systems: Narrative: CONSTITUTIONAL: Denies malaise, chills, sweats, or fever. EYES: Denies visual changes ENT: Denies rhinorrhea, congestion, sinus pain, otalgia or sore throat. CARDIOVASCULAR: Denies chest pain, palpitations, or edema. RESPIRATORY: Denies cough. Reports dyspnea. GASTROINTESTINAL: Denies abdominal pain. NEUROLOGIC: Denies numbness, weakness, or headache. All systems reviewed & are unremarkable except as noted in HPI and below PMFSH Past Medical History Medical History Abdominal aortic aneurysm Infrarenal abdominal aortic aneurysm measuring 3.4 cm on imaging from February 2019 Aortic stenosis Echocardiogram December 2018 demonstrated EF of 55-60%, moderate to severe aortic stenosis with valve area of 1 cm, mild to moderate mitral valve regurgitation, mild tricuspid regurgitation Arthritis Bilateral inguinal hernia Bilateral fat containing inguinal hernias noted on CT 02/2019 Chronic anemia Chronic kidney disease, stage 3 Creatinine varies, but baseline seems to be around 1.90. Dementia Depression Diabetes mellitus Diastolic heart failure Dysphagia Gastritis Noted on EGD June 2019. History of BPH HLD (hyperlipidemia) Hypertension Peripheral neuropathy Psoriasis Previously on methotrexate, which was recently stopped due to oral ulcers. Social History Social History (System 09/07/19 @ 09:06 by Keisha Chen) Social History: The patient reports that he quit smoking about 20 years ago. It sounds as if he smoked at least a pack of cigarettes per day. He reports the used to drink at least a moderate if not larger amount of alcohol but quit drinking 20 years ago. He denies any illicit substance use. He he currently lives with his daughter in [place]. Daughter Tarah is his emergency contact. He lists is a full code. Years smoked: 45 Smoking status: Former smoker Second hand tobacco smoke exposure: No Smoking end date: 04/05/99 Alcohol intake: never Substance use: never Additional living arrangements comments: He is and lives with his daughter. 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 Gender identity (if verbalized by the patient): Male Spiritual care concerns: No Agree to blood products: Yes Comments At time of signature, agree with nursing past medical, surgical, social and
[2019-12-12 11:59] VITALS: BP 190/85; PULSE 94; RESP 16; TEMP 36.6; O2SAT 90
[2019-12-12 12:00] VITALS: RESP 20
== END 2019-12-12 12:11 | disposition short-term general hospital (02) ==
PROVIDERS: Emergency Provider Nurse Practitioner
DX: R06.02 Shortness of breath (principal); Z87.891 Personal history of nicotine dependence; M19.90 Unspecified osteoarthritis, unspecified site; F03.90 Unspecified dementia, unspecified severity, without behavioral disturbance, psychotic disturbance, mood disturbance, and anxiety; N40.0 Benign prostatic hyperplasia without lower urinary tract symptoms; E78.5 Hyperlipidemia, unspecified; E11.42 Type 2 diabetes mellitus with diabetic polyneuropathy; I13.0 Hypertensive heart and chronic kidney disease with heart failure and stage 1 through stage 4 chronic kidney disease, or unspecified chronic kidney disease; I50.30 Unspecified diastolic (congestive) heart failure
CPT/HCPCS: 99212; G0463

== ENCOUNTER 2019-12-12 12:28 | Observation (INO) | payer MEDICARE, OTHER, SELFPAY ==
[2019-12-12] VITALS (34 sets, daily range): BP systolic 157–193; BP diastolic 75–118; PULSE 73–90; RESP 13–25; TEMP 36–36.8; O2SAT 87–100; BMI 27.1
--- NOTE | ~2019-12-12 | XR_ITS ---
XR chest 2V DATE: 12/12/2019 13:06 INDICATION: Shortness of breath TECHNIQUE: AP and lateral views COMPARISON: 07/22/2019 PA and lateral chest FINDINGS: There are bibasilar infiltrates and/atelectasis and small bilateral pleural effusions. Mild cardiomegaly. There is prominence of the fissures consistent with subpleural edema. There is mild pulmonary vascula r congestion/redistribution. There is aortic calcification. IMPRESSION: Mild cardiomegaly, mild congestive changes including mild pleural effusions, subpleural e hyun Bibasilar infiltrate and/atelectasis Aortic atherosclerosis Osteopenia Reviewed, dictated and finalized at location A. IMPRESSION: Mild cardiomegaly, mild congestive changes including mild pleural e ffusions, subpleural edema Bibasilar infiltrate and/atelectasis Aortic atherosclerosis Osteopenia
--- NOTE | 2019-12-12 12:41 | ECG_ITS ---
Measurements Intervals [place] Rate: 81 P: 36 MA: 153 QRS: 20 QRSD: 102 T: 146 QT: 387 QTc: 449 Interpretive Statements SINUS RHYTHM POSSIBLE LEFT ATRIAL ENLARGEMENT LEFT VENTRICULAR HYPERTROPHY WITH ST-T CHANGE ST-T WAVE ABNORMALITY IN ANTEROLAT/HIGH LAT LEADS- CONSIDER ISCHEMIA BASELINE ARTIFACT- I, III, AVL ABNORMAL ECG Electronically Signed On 12-12-2019 12:56:04 CDT by Luke Corado D.O.
[2019-12-12 13:07] LABS: Basophils Percent Auto 0.5 % (0.2-1.2); Eosinophils Absolute Auto 0.6 K/mm3 (0-0.3); Eosinophils Percent Auto 7.4 % (0-4.4); Hematocrit 35.7 % (42.0-52.0); Hemoglobin 11.9 g/dL (14.0-18.0); Immature Granulocyte Absolute 0.08 K/mm3 (0.00-0.031); Lymphocytes Absolute Auto 0.89 K/mm3 (0.9-3.2); Mean Corpuscular HGB Conc 33.3 g/dl (32-36); Mean Corpuscular Hemoglobin 32.3 pg (26-34); Mean Platelet Volume 10.4 fl (7.4-10.4); Monocytes Absolute Auto 0.6 K/mm3 (0.1-0.6); Monocytes Percent Auto 7.8 % (2.6-8.5); Neutrophils Absolute Auto 5.9 K/mm3 (1.3-6.7); Neutrophils Percent Auto 72.3 % (45.5-73.1); Platelet Count Result 161 k/mm3 (150-375); Red Blood Count 3.68 M/mm3 (4.6-6.20); Red Cell Distribution Width 15.2 % (11.5-14.5); White Blood Count 8.1 K/mm3 (4.5-10.0)
[2019-12-12 13:20] LABS: Anion Gap 7 mmol/L (8-16); Blood Urea Nitrogen 52 mg/dL (9-20); Calcium 8.3 mg/dL (8.4-10.2); Carbon Dioxide 23 mmol/L (22-30); Chloride 108 mmol/L (98-107); Estimated CRCL calculation 23 ml/min; Estimated Glomerular Filt Rate 24; Glucose 148 mg/dL (75-110); Potassium 4.6 mmol/L (3.4-5.0); Sodium 138 mmol/L (137-145)
--- NOTE | 2019-12-12 14:01 | ED.SOB ---
HPI - SOB/Dyspnea General Chief Complaint: Shortness of Breath/Dyspnea Stated Complaint: sob, weakness Time Seen by Provider: 12/12/19 13:46 Source: patient and family Mode of arrival: ambulatory Limitations: no limitations History of Present Illness HPI Narrative: This patient is an 84 year old male with history of CHF who presents for evaluation shortness of breath. Patient reports he was having sob this morning but he denies sob now. He denies cough but his family member reports he has been coughing. She reports 2 days ago she thought his cough was due to sinus drainage. PAtient denies chest pain, fever, nausea, vomiting or edema. He does have history of CHF Related Data Home Medications Medication Instructions Recorded Confirmed aspirin [Aspir-81] 81 mg PO DAILY 02/04/19 12/12/19 loratadine 10 mg PO DAILY 02/04/19 12/12/19 Ca-D3-mag yq-vcdn-[id number]-lucrecia-bor 1 tablet PO DAILY 06/10/19 12/12/19 [Calcium 600-D3 Plus (mag-zinc)] Men's 50 Plus Multivitamin 1 tablet PO DAILY 06/10/19 12/12/19 acetaminophen [Tylenol 8 Hour] 650 mg PO Q12H 06/10/19 12/12/19 docusate sodium 100 mg PO BID 06/10/19 12/12/19 finasteride 5 mg PO DAILY 06/10/19 12/12/19 tamsulosin 0.4 mg PO HS 06/10/19 12/12/19 vitamin B complex [Super B-50 1 cap PO HS 06/10/19 12/12/19 Complex] atorvastatin [Lipitor] 10 mg PO DAILY 07/22/19 12/12/19 tramadol [Ultram] 25 mg PO BID PRN 07/22/19 12/12/19 amlodipine [Norvasc] 5 mg PO DAILY 12/12/19 12/12/19 carvedilol [Coreg] 6.25 mg PO BID 12/12/19 12/12/19 furosemide [Lasix] 20 mg PO DAILY 12/12/19 12/12/19 spironolactone [Aldactone] 25 mg PO DAILY PRN 12/12/19 12/12/19 Allergies Allergy/AdvReac Type Severity Reaction Status Date / Time Sulfa (Sulfonamide AdvReac Hives Verified 12/12/19 11:57 Antibiotics) Review of Systems Review of Systems: All systems reviewed & are unremarkable except as noted in HPI and below Constitutional: Constitutional: Denies chills and Denies fever(s) ENT: Reports nasal congestion Cardiovascular: Cardiovascular: Denies chest pain Respiratory: Respiratory: Reports cough and Reports dyspnea Gastrointestinal: Gastrointestinal: Denies abdominal pain, Denies nausea and Denies vomiting [facility] Social History Social History (System 09/07/19 @ 09:06 by Keisha Chen) Social History: The patient reports that he quit smoking about 20 years ago. It sounds as if he smoked at least a pack of cigarettes per day. He reports the used to drink at least a moderate if not larger amount of alcohol but quit drinking 20 years ago. He denies any illicit substance use. He he currently lives with his daughter in [place]. Daughter Tarah is his emergency contact. He lists is a full code. Years smoked: 45 Smoking status: Former smoker Second hand tobacco smoke exposure: No Smoking end date: 04/05/99 Alcohol intake: former Substance use: never Additional living arrangements comments: He is and lives with his daughter. 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 Gender identity (if verbalized by the patient): Male Spiritual care concerns: No Agree to blood products: Yes Exam Narrative: Exam Narrative: GENERAL: Well-appearing, well-nourished, and in no acute distress. HEAD: Normocephalic, atraumatic EYES: PERRLA and EOMI, conjunctiva clear without discharge THROATdry mucous membrain NECK: Supple, without lymphadenopathy or mass RESPIRATORY: No respiratory distress, Airway patent, Respirations non-labored, Clear to auscultation without rales, rhonchi or wheeze HEART: Regular rate and rhythm. systolic murmur Normal peripheral pulses. ABDOMEN: Soft, nontender, nondistended, normal active bowel sounds. No masses. No rebound or guarding, No organomegaly. EXTREMITIES: No edema, normal strength with full range of motion. SKIN: Warm, dry, NEURO: Aler
[2019-12-12 14:03] LABS: NT Pro B Type Natriuretic Pept 10400 PG/ML (5-100)
[2019-12-12 14:23] LABS: Alveolar/Arterial O2 Gradient 41.9 mmHg; Base Excess ABG -3.1 mEq/l (+/-2.0); Fractional Inspired Oxygen 21 %; HCO3 ABG 21.8 mEq/l (22.0-26.0); Oxygen Content ABG 15.9 %vol (16.0-22.0); Oxygen Saturation ABG 91.1 % (95.0-100.0); Oxyhemoglobin 88.8 % THb (90.0-100.0); PCO2 ABG 38.5 mmHg (35.0-45.0); PO2 ABG 61.7 mmHg (80.0-100.0); PO2 FiO2 Ratio Arterial Blood 2.94 %; Total Hemoglobin 12.7 g/dL (12.0-18.0)
[2019-12-12 14:24] LABS: Device ROOM AIR; Modified Allen's Test Pass; Site Drawn RIGHT RADIAL
[2019-12-12] MEDS: FUROSEMIDE INJ 40 MG/4 ML VIAL IV PUSH ×2 (14:50→20:17)
[2019-12-12 16:05] LABS: Lactate Dehydrogenase 598 U/L (313-618)
--- NOTE | 2019-12-12 17:15 | PC.NURSE ---
This patient, Dell Leon Sr., was admitted to Medical Room 347-01. Patient/family oriented to hospital policies and general routines including ID bracelet, bed and alarms, visiting hours, pain management, procedures, bathroom and other care routines, personal items, smoking policy, room service/diet, and visiting hours. Valuables list has been completed. Information on how to activate the Rapid Response Team has been discussed. Patient/Family are encouraged to report perceived risks to care and to ask questions if they do not understand what they are told or what they should do.
[2019-12-12 18:16] LABS: Glucose Point of Care 164 (65-105)
--- NOTE | 2019-12-12 19:02 | PM.CNCAR ---
Assessment and Plan Assessment and plan (1) Hypertension: Code(s): I10 - Essential (primary) hypertension Status: Acute Assessment and Plan: High. Increase Coreg 12.5 mg BID and start Hydarlazine 25 mg BID. Due to worsening kidney function, will not start Caden inh or ARB or start Spironolactone. (2) Aortic stenosis: Code(s): I35.0 - Nonrheumatic aortic (valve) stenosis Status: Acute Assessment and Plan: He is due to an echo to reassess aortic stenosis. Obtain echo. (3) HLD (hyperlipidemia): Code(s): E78.5 - Hyperlipidemia, unspecified Status: Acute (4) Acute CHF (congestive heart failure): Code(s): I50.9 - Heart failure, unspecified Status: Acute Assessment and Plan: Acute on chronic diastolic heart failure. Agree with Lasix 40 mg IV BID. DVT prophylaxis while in hospital. (5) Chronic kidney disease, stage IV (severe): Code(s): N18.4 - Chronic kidney disease, stage 4 (severe) Status: Acute History of Present Illness History of Present Illness Consult date/time: 12/12/19 19:02 Reason for consult: CHF. Patient is a 84 yr old man who is my regular cardiology patient who presents to ED with his daughter this morning for sob. He has a history of mod-severe , CKD stage IV, diastolic heart failure, DM, hypertension, abnormal nuclear stress test but asymptomatic, gastric ulcers requiring blood transfusions. States that this morning prior to taking his medications, he noted sob. After he took them though he felt better. He was brought to ED by his daughter. In ED it was noted on CXR he had mild congestion and mild pleural effusions. He also has worsening CKD with Cr 2.6 and GFR 23. He reports mild swelling of both legs. Reports he has balance issues and is limited by that and he walks with a cane. Admits to PRYOR walking minimal distance also in his house, but is more limited by instability. Cardiovascular Procedures Echo/MUGA:: BLADIMIR (EF 55-60%, mild LVH, mild LAE, mod-severe with planimetry at 1.0 cm2, turbulent flow suggests severe , mild-mod MR, mild TR.) - 12/26/2018 Echo (EF 55-60%, mild LVH, grade I diastolic dysfunction (E?E' 20), mild LAE, severe calcification of AV, severe (valve 0.8 cm2), trace AI/TR, mild MR, mod MAC, RVSP 43 mmHg.) - 12/07/2018 Electrophysiology:: 06/22/19 EKG: Sinus rhythm, nonspecific ST-T wave in inf/lat leads. EKG (Sinus rhythm with borderline ST-T wave in lateral leads.) - 11/17/2018 Stress Tests:: 06/23/19 CXR: Mild pulm edema. MPI (Lexiscan myoview: Partial reversible ischemia of basilar inferior segment and equivocal small ischemia of mid-basilar inferolateral segments.) - 12/07/2018 Reason For Visit: CHF exacerbation Review of Systems Review of Systems: All systems reviewed & are unremarkable except as noted in HPI and below Constitutional: Constitutional: Reports as per HPI and Denies chills Cardiovascular: Cardiovascular: Reports as per HPI, Denies chest pain, Denies diaphoresis, Reports leg edema and Denies lightheadedness Respiratory: Respiratory: Reports as per HPI and Reports dyspnea Gastrointestinal: Gastrointestinal: Reports as per HPI and Denies abdominal pain Genitourinary: Genitourinary: Reports as per HPI and Denies dysuria Musculoskeletal: Musculoskeletal: Reports as per HPI Neurologic: Reports as per HPI and Denies confusion [facility] Social History Social History (System 09/07/19 @ 09:06 by Keisha Chen) Social History: The patient reports that he quit smoking about 20 years ago. It sounds as if he smoked at least a pack of cigarettes per day. He reports the used to drink at least a moderate if not larger amount of alcohol but quit drinking 20 years ago. He denies any illicit substance use. He he currently lives with his daughter in [place]. Daughter Tarah is his emergency contact. He lists is a full code. Years smoked: 45 Smoking status: Former smoker Second h
[2019-12-12] MEDS: carvediloL 25 MG TABLET PO (20:15)
[2019-12-12] MEDS: hydrALAZINE HCL 25 MG TABLET PO (20:16)
--- NOTE | 2019-12-12 21:00 | PM.IMHP ---
H&P: HPI History of Present Illness Date/Time: 12/12/19 21:00 Chief complaint: Shortness of breath. Narrative: Dell Leon Sr. is an 84-year-old male with aortic stenosis, diastolic congestive heart failure, chronic kidney disease, hypertension, and type 2 diabetes mellitus who presented to the emergency department earlier today for evaluation of shortness of breath. Over the past 2 days he reports progressive dyspnea on lesser and lesser exertion and this morning his daughter reports that his chest was rattling and she encouraged him to come in for evaluation. He has had perhaps a mild cough that has been nonproductive which he attributes that to postnasal drip. Chest x-ray shows mild congestive changes, and he is being admitted in this setting. With further questioning, he states compliance with his home medications and tells me he does not add salt to any of his food. He has not noticed a change in lower extremity edema and he denies orthopnea, PND, chest pain, and palpitations. No nausea or vomiting. He has not had fever, chills, or sweats. Review of Systems Review of Systems: Narrative: Twelve systems were reviewed with pertinent positives and negatives as per HPI. He denies fever, chills, and sweats. No headache or neck ache. No anosmia or dysgeusia. Denies sick contacts. No lower extremity pain. He has not noticed a change in urine output. He does not check his glucose very often but states that is usually pretty well controlled. He does have neuropathy in his feet. No blurry vision, polydipsia, or polyuria. Except as documented, all other systems were reviewed and are negative. [facility] Past Medical History Medical History (Updated 12/12/19 @ 22:45 by Tianna Spain PA-C) Abdominal aortic aneurysm Infrarenal abdominal aortic aneurysm measuring 3.4 cm on imaging in June 2019. Aortic stenosis Echocardiogram December 2018 demonstrated EF of 55-60%, moderate to severe aortic stenosis with valve area of 1 cm, mild to moderate mitral valve regurgitation, and mild tricuspid regurgitation Arthritis Benign prostatic hyperplasia Bilateral inguinal hernia Bilateral fat containing inguinal hernias noted on CT in 02/2019. Chronic anemia Chronic progressive renal failure, stage 4 (severe) Creatinine varies, but baseline seems to be around 1.90 to 2.10. Dementia Depression Diastolic heart failure Echocardiogram December 2018 demonstrated EF of 55-60%, moderate to severe aortic stenosis with valve area of 1 cm, mild to moderate mitral valve regurgitation, and mild tricuspid regurgitation Dysphagia Gastritis Noted on EGD June 2019. Hyperlipidemia Hypertension Psoriasis Previously on methotrexate, which was recently stopped due to oral ulcers. Type 2 diabetes mellitus with peripheral neuropathy Hemoglobin A1c was 5.6% on 06/23/2019. Surgical History Surgical History History of cataract extraction History of colon resection For benign tumor. History of tonsillectomy Family History Family History Sibling Patient's sister is in good health Family history unknown Father Family history unknown Mother Family history unknown Other Unknown family medical history Social History Social History (Updated 12/12/19 @ 22:39 by Tianna Spain PA-C) Social History: The patient is and lives in [place] with his daughter. He is originally from [place], [place]. He was in the [employer] as a young man. 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 He smoked for about 45 years, and quit 20 years ago. He has not had alcohol in about 20 years. No illicit substance use. He designates his daughter, Tarah, as his surrogate decision maker and he wishes to be a full code. Spiritual care concerns: No Agree to blood products: Yes Meds Home Medications and Allerg
[2019-12-12] MEDS: ACETAMINOPHEN 325 MG TABLET 650 MG PO (23:39)
[2019-12-12] MEDS: TAMSULOSIN HCL 0.4 MG CAPSULE PO (23:39)
[2019-12-12] MEDS: VITAMIN B COMPLEX CAPSULE 1 CAP PO (23:39)
[2019-12-13] VITALS (13 sets, daily range): BP systolic 144–162; BP diastolic 69–81; PULSE 67–94; RESP 16–18; TEMP 36.1–36.3; O2SAT 93–98
--- NOTE | 2019-12-13 | ECHO_ITS ---
Patient Info Name: Dell Leon Age: 84 years : 1935 Gender: Male Ht: 73 in Wt: 210 lbs BSA: 2.23 m2 HR: 72 bpm BP: 162 / 81 mmHg Technical Quality: Good Exam Date: 12/13/2019 7:55 AM Exam Location: [facility] Patient Status: Inpatient Admit Date: 12/12/2019 Staff Ordering Physician: Luke Corado DO Supervisor [employer]: Carson Medley RDCS, RT Attending Provider: Vj Perez PA-C Referring Physician: Mak NORIEGA; Exam Type: CA echo doppler color flow Study Info Indications I50.9 - Heart failure, unspecified Complete two-dimensional, color flow and Doppler transthoracic echocardiogram is performed. Summary 1. Complete two-dimensional, color flow and Doppler transthoracic echocardiogram is performed. 2. Left ventricular chamber dimension is mildly enlarged. 3. Left ventricular systolic function is mildly reduced, estimated at 45-50%. 4. There is moderately increased left ventricular wall thickness. 5. The left ventricular diastolic function is grade III diastolic dysfunction. 6. E/e' 24 is elevated. 7. Global longitudinal strain is abnormal at -10.7%. 8. Left atrial chamber dimension is mildly enlarged. 9. There is severe aortic valve sclerosis. 10. There is moderate to severe aortic valve stenosis with a peak velocity of 309 cm/s, mean gradient of 18 mmHg, and aortic valve area of 1.0 cm2. 11. There is mild aortic valve regurgitation. 12. There is moderate mitral valve regurgitation. 13. There is trace tricuspid valve regurgitation. 14. Dilated inferior vena cava with >50% collapse upon inspiration consistent with elevated right atrial pressure, 10 mmHg. Left Ventricle E/e' 24 is elevated. Global longitudinal strain is abnormal at -10.7%. Left ventricular chamber dimension is mildly enlarged. Left ventricular systolic function is mildly reduced, estimated at 45-50%. There is moderately increased left ventricular wall thickness. The left ventricular diastolic function is grade III diastolic dysfunction. Right Ventricle Right ventricular chamber dimension is normal. Right ventricular systolic function is normal. Left Atria Left atrial chamber dimension is mildly enlarged. Right Atria Right atrial chamber dimension is normal. Aortic Valve The aortic valve is probable trileaflet. There is severe aortic valve sclerosis. There is moderate to severe aortic valve stenosis with a peak velocity of 309 cm/s, mean gradient of 18 mmHg, and aortic valve area of 1.0 cm2. There is mild aortic valve regurgitation. Pulmonic Valve There is no pulmonic regurgitation. Mitral Valve There is no mitral valve stenosis. There is moderate mitral valve regurgitation. Tricuspid Valve RVSP is not calculated due to an inadequate TR jet. There is trace tricuspid valve regurgitation. Pericardium/Pleural There is no pericardial effusion. Inferior Vena Cava Dilated inferior vena cava with >50% collapse upon inspiration consistent with elevated right atrial pressure, 10 mmHg. Aorta The aortic root size at the sinus of Valsalva is normal. Left Ventricular Outflow Tract Name Value Normal LVOT 2D LVOT Diameter 2.1 cm LVOT Doppler
[2019-12-13 05:32] LABS: Basophils Percent Auto 0.4 % (0.2-1.2); Eosinophils Absolute Auto 0.5 K/mm3 (0-0.3); Eosinophils Percent Auto 6.7 % (0-4.4); Hematocrit 33.8 % (42.0-52.0); Hemoglobin 11.3 g/dL (14.0-18.0); Immature Granulocyte Absolute 0.08 K/mm3 (0.00-0.031); Lymphocytes Absolute Auto 1.34 K/mm3 (0.9-3.2); Lymphocytes Percent Auto 17.2 % (18.3-44.2); Mean Corpuscular HGB Conc 33.4 g/dl (32-36); Mean Corpuscular Hemoglobin 32.2 pg (26-34); Mean Corpuscular Volume 96.3 fl (80-100); Mean Platelet Volume 10.4 fl (7.4-10.4); Monocytes Absolute Auto 0.7 K/mm3 (0.1-0.6); Monocytes Percent Auto 9.2 % (2.6-8.5); Neutrophils Absolute Auto 5.1 K/mm3 (1.3-6.7); Neutrophils Percent Auto 65.5 % (45.5-73.1); Platelet Count Result 152 k/mm3 (150-375); Red Blood Count 3.51 M/mm3 (4.6-6.20); White Blood Count 7.8 K/mm3 (4.5-10.0)
[2019-12-13 05:47] LABS: Alanine Aminotransferase 10 U/L (4-50); Albumin Level 3.9 g/dL (3.5-5.1); Alkaline Phosphatase 57 U/L (38-126); Anion Gap 6 mmol/L (8-16); Aspartate Amino Transferase 18 U/L (17-59); Bilirubin,Total 0.4 mg/dL (0.2-1.3); Blood Urea Nitrogen 56 mg/dL (9-20); Calcium 8.9 mg/dL (8.4-10.2); Carbon Dioxide 26 mmol/L (22-30); Chloride 105 mmol/L (98-107); Estimated CRCL calculation 23 ml/min; Estimated Glomerular Filt Rate 23; Glucose 146 mg/dL (75-110); Potassium 4.7 mmol/L (3.4-5.0); Sodium 137 mmol/L (137-145)
[2019-12-13 07:29] LABS: Glucose Point of Care 148 (65-105)
--- NOTE | 2019-12-13 07:55 | PM.PNCARD ---
Progress Note: A&P Assessment and Plan (1) Acute on chronic diastolic congestive heart failure: Code(s): I50.33 - Acute on chronic diastolic (congestive) heart failure Status: Acute Assessment and Plan: Change Furosemide 40 mg IV BID to 40 mg PO daily. He appears to be euvolemic. (2) Hypertension: Code(s): I10 - Essential (primary) hypertension Status: Acute Assessment and Plan: High. Increase Coreg 25 mg BID and Hydralazine 50 mg TID. (3) Aortic stenosis: Code(s): I35.0 - Nonrheumatic aortic (valve) stenosis Status: Acute Assessment and Plan: Obtain echo. (4) HLD (hyperlipidemia): Code(s): E78.5 - Hyperlipidemia, unspecified Status: Acute (5) Chronic kidney disease, stage IV (severe): Code(s): N18.4 - Chronic kidney disease, stage 4 (severe) Status: Acute Subjective Date/time seen: 12/13/19 07:55 Denies chest pain or sob. Exam Const: General: comfortable and no acute distress Neck: Neck: no JVD Carotids: no bruits Resp: Auscultation: clear to auscultation bilaterally, no crackles, no rales, no rhonchi and no wheezes Cardio: Rate: regular rate Rhythm: regular rhythm Heart sounds: Murmur heart sound present (IV/ systolic murmur RICS) GI: Inspection: non-distended Neuro: Speech: normal speech Extrem: Right lower extremity: edema Left lower extremity: edema Other: Trace to mild edema of both legs Objective Data Vital Signs Vital Signs: Vital Signs - 24 hr 12/12/19 12:31 12/12/19 12:43 12/12/19 12:45 Temperature 98.2 F Pulse Rate 79 83 81 Respiratory Rate 18 21 H 21 H Blood Pressure 177/80 H 176/80 H Pulse Oximetry 95 87 L 95 12/12/19 12:46 12/12/19 13:09 12/12/19 13:15 Temperature Pulse Rate 81 76 77 Respiratory Rate 20 13 19 Blood Pressure Pulse Oximetry 96 97 97 12/12/19 13:30 12/12/19 13:45 12/12/19 14:00 Temperature Pulse Rate 79 79 74 Respiratory Rate 17 20 20 Blood Pressure Pulse Oximetry 98 99 91 12/12/19 14:15 12/12/19 14:30 12/12/19 14:45 Temperature Pulse Rate 78 75 80 Respiratory Rate 23 H 18 19 Blood Pressure Pulse Oximetry 92 89 L 88 L 12/12/19 15:00 12/12/19 15:15 12/12/19 15:30 Temperature Pulse Rate 90 86 75 Respiratory Rate 23 H 25 H 18 Blood Pressure Pulse Oximetry 97 97 99 12/12/19 15:31 12/12/19 15:45 12/12/19 16:00 Temperature Pulse Rate 83 76 Respiratory Rate 17 18 Blood Pressure 162/95 H Pulse Oximetry 98 99 99 12/12/19 16:01 12/12/19 16:15 12/12/19 16:30 Temperature Pulse Rate 77 75 76 Respiratory Rate 21 H 19 15 Blood Pressure Pulse Oximetry 100 100 99 12/12/19 16:31 12/12/19 16:45 12/12/19 16:46 Temperature Pulse Rate 86 76 81 Respiratory Rate 17 20 19 Blood Pressure 157/94 H 160/118 H Pulse Oximetry 99 12/12/19 17:00 12/12/19 17:01 12/12/19 17:25 Temperature 96.8 F L Pulse Rate 77 76 73 Respiratory Rate 17 18 18 Blood Pressure 165/95 H 172/98 H Pulse Oximetry 100 12/12/19 18:45 12/12/19 19:10 12/12/19 19:22 Temperature Pulse Rate 82 77 80 Respiratory Rate Blood Pressure Pulse Oximetry 99 97 12/12/19 20:00 12/12/19 20:12 12/12/19 20:15 Temperature 97.3 F L Pulse Rate 79 78 77 Respiratory Rate 18 Blood Pressure 193/83 H Pulse Oximetry 97 12/12/19 22:03 12/13/19 00:00 12/13/19 04:04 Temperature Pulse Rate 73 70 Respiratory Rate Blood Pressure 157/75 H Pulse Oximetry 12/13/19 04:54 Temperature 97 F L Pulse Rate 70 Respiratory Rate 16 Blood Pressure 162/81 H Pulse Oximetry 98 Intake/Output Intake/Output: Intake & Output 12/10/19 12/11/19 12/12/19 12/13/19 23:59 23:59 23:59 23:59 Intake Total 120 Output Total 550 500 Balance -430 -500 Meds/Results Medications: Active Medications Generic Name Dose Route Start Last Admin Trade Name Freq PRN Reason Stop Dose Admin Acetaminophen 650 mg
[2019-12-13] MEDS: ASPIRIN 81 MG ENTERIC TABLET PO (08:39)
[2019-12-13] MEDS: DOCUSATE SODIUM 100 MG CAPSULE PO ×2 (08:39→17:17)
[2019-12-13] MEDS: GABAPENTIN 300 MG CAPSULE PO ×3 (08:39→17:17)
[2019-12-13] MEDS: DULoxetine HCL 30 MG CAPSULE.DR PO (08:40)
[2019-12-13] MEDS: FINASTERIDE 5 MG TABLET PO (08:40)
[2019-12-13] MEDS: LORATADINE 10 MG TABLET PO (08:40)
[2019-12-13] MEDS: THERAPEUTIC MULTIVITAMINS/MINERALS TAB (*BKC) 1 TABLET PO (08:40)
[2019-12-13] MEDS: amLODIPine BESYLATE 5 MG TABLET PO (08:40)
[2019-12-13] MEDS: ATORVASTATIN 10 MG TABLET PO (08:41)
[2019-12-13] MEDS: carvediloL 25 MG TABLET PO ×2 (08:41→20:48)
[2019-12-13] MEDS: FUROSEMIDE INJ 40 MG/4 ML VIAL IV PUSH (08:42)
[2019-12-13] MEDS: hydrALAZINE HCL 50 MG TABLET PO ×3 (10:27→17:17)
--- NOTE | 2019-12-13 11:12 | PC.NURSE ---
Pt daughter, Tarah, contacted about bringing in pt supply of Linagliptin due to it being a nonformulary drug with our pharmacy.
[2019-12-13 11:26] LABS: Glucose Point of Care 258 (65-105)
[2019-12-13] MEDS: INSULIN ASPART (*BKC) 100 UNITS/ML SUB-Q (11:51)
--- NOTE | 2019-12-13 14:51 | PHAR ---
Drug Name: Vaishnavi Ingredients: Linagliptin -- 5 MG Related Documents: DRUGDEX Evaluations - LINAGLIPTIN Color: Light Red Shape: [place] Imprint: LOGO , D5 Form: Oral Tablet
--- NOTE | 2019-12-13 15:06 | PM.IMPN ---
Progress Note: A&P Assessment and Plan (1) Acute on chronic diastolic congestive heart failure: Code(s): I50.33 - Acute on chronic diastolic (congestive) heart failure Status: Acute Assessment and Plan: IV furosemide b.i.d. transitioned PO today per Dr. Corado. Clinical improvement overnight. Dr. Corado has increased his Coreg and started hydralazine. Echo today shows worsened systolic function and what appears to be stable Monitor closely Continue PO diuresis Monitor BP Consider discharge tomorrow if okay from cardiac standpoint and kidney function is stable (2) Aortic stenosis: Code(s): I35.0 - Nonrheumatic aortic (valve) stenosis Status: Acute Assessment and Plan: Mod to severe noted on Echo today Continue to monitor Await further rec from Cardiology (3) Chronic progressive renal failure, stage 4 (severe): Code(s): N18.4 - Chronic kidney disease, stage 4 (severe) Status: Acute Assessment and Plan: Cr 2.70 relatively stable from yesterday. Kidney function has progressed, with baseline creatinine probably around 2.10 if not higher. Will need to monitor renal function closely while diuresing. Consider Nephrology consult if significant decline in renal function (4) Hypertension: Code(s): I10 - Essential (primary) hypertension Status: Acute Assessment and Plan: BP 140s sys this afternoon. Coreg has been increased and he has been started on hydralazine. Cardiology following and appreciate rec Monitor (5) Type 2 diabetes mellitus with peripheral neuropathy: Code(s): E11.42 - Type 2 diabetes mellitus with diabetic polyneuropathy Status: Acute Assessment and Plan: Most recent hemoglobin A1c was 5.6%. Continue home oral medication Initiate sliding scale insulin, Accu-Cheks, and hypoglycemic protocol. Subjective Date/time seen: 12/13/19 15:06 Interval history: Patient is a 84 yo M with history of aortic stenosis, diastolic congestive heart failure, chronic kidney disease, hypertension, and type 2 diabetes mellitus who is here for acute on chronic diastolic CHF and worsened CKD. Patient states he feels much better. He thinks his breathing has improved, his swelling in LE have improved and has been having good diuresis. He notes some stinging with urination, but does not have any other urinary symptoms or subjective fevers/chills. Denies headaches, dizziness, lightheadedness, cp/palpitations, current sob/cough, n/v/d/c, abd pain, changes in BMs, hematuria, cloudy urine, calf pain Review of Systems Review of Systems: All systems reviewed & are unremarkable except as noted in HPI and below Exam Narrative: Exam Narrative: General: Patient sitting on side of bed in no acute distress. Daughter in room visiting HEENT: Normocephalic, EOMI, oral mucosa moist. Cardiovascular: Rate and rhythm are regular. systolic murmur noted. No rub, or gallop. Respiratory: mild crackles in lung bases. Non-labored breathing. Abdomen: Soft, non-tender, non-distended, bowel sounds present. Extremities: Peripheral pulses intact. B/l edema in LE with right>left Neuro: No focal neurological deficits. Speech is clear. Objective Data Vital Signs Vital Signs: Last Vital Signs Temp 97 F L 12/13/19 04:54 Pulse 67 12/13/19 14:13 Resp 16 12/13/19 04:54 BP 144/78 H 12/13/19 14:13 Pulse Ox 97 12/13/19 10:50 Intake/Output Intake/Output: Intake & Output 09/09/2212/11/19 12/12/19 12/13/19 23:59 23:59 23:59 23:59 Intake Total 120 720 Output Total 550 500 Balance -430 220 Meds/Results Medications: Active Medications Generic Name Dose Route Start Last
[2019-12-13 16:29] LABS: Glucose Point of Care 132 (65-105)
[2019-12-13] MEDS: ACETAMINOPHEN 325 MG TABLET 650 MG PO (17:17)
[2019-12-13] MEDS: VITAMIN B COMPLEX CAPSULE 1 CAP PO (20:47)
[2019-12-13] MEDS: HEPARIN SODIUM 5,000 UNITS/ML VIAL 5000 UNITS SUB-Q (20:48)
[2019-12-13] MEDS: traMADol HCL 50 MG TABLET 25 MG PO (20:48)
[2019-12-13] MEDS: TAMSULOSIN HCL 0.4 MG CAPSULE PO (20:49)
[2019-12-13 22:18] LABS: Glucose Point of Care 178 (65-105)
[2019-12-14] VITALS: PULSE 76
[2019-12-14 04:00] VITALS: PULSE 65
[2019-12-14 05:58] VITALS: BP 150/66; PULSE 70; RESP 18; TEMP 36.3; O2SAT 97
[2019-12-14 06:00] LABS: Hematocrit 31.7 % (42.0-52.0); Hemoglobin 10.8 g/dL (14.0-18.0); Mean Corpuscular HGB Conc 34.1 g/dl (32-36); Mean Corpuscular Hemoglobin 32.4 pg (26-34); Mean Corpuscular Volume 95.2 fl (80-100); Mean Platelet Volume 10.4 fl (7.4-10.4); Platelet Count Result 140 k/mm3 (150-375); Red Blood Count 3.33 M/mm3 (4.6-6.20); Red Cell Distribution Width 14.7 % (11.5-14.5); White Blood Count 6.4 K/mm3 (4.5-10.0)
[2019-12-14 06:09] LABS: Anion Gap 8 mmol/L (8-16); Blood Urea Nitrogen 67 mg/dL (9-20); Calcium 8.4 mg/dL (8.4-10.2); Carbon Dioxide 24 mmol/L (22-30); Chloride 104 mmol/L (98-107); Estimated CRCL calculation 24 ml/min; Estimated Glomerular Filt Rate 25; Glucose 144 mg/dL (75-110); Magnesium 2.3 mg/dL (1.6-2.3); Potassium 4.7 mmol/L (3.4-5.0); Sodium 136 mmol/L (137-145)
[2019-12-14 08:00] VITALS: PULSE 73
[2019-12-14] MEDS: amLODIPine BESYLATE 5 MG TABLET 10 MG PO (09:04)
[2019-12-14 09:05] VITALS: PULSE 80
[2019-12-14] MEDS: carvediloL 25 MG TABLET PO (09:05)
[2019-12-14] MEDS: THERAPEUTIC MULTIVITAMINS/MINERALS TAB (*BKC) 1 TABLET PO (09:05)
[2019-12-14] MEDS: GABAPENTIN 300 MG CAPSULE PO ×2 (09:05→12:01)
[2019-12-14] MEDS: hydrALAZINE HCL 50 MG TABLET PO ×2 (09:06→12:02)
[2019-12-14] MEDS: FINASTERIDE 5 MG TABLET PO (09:07)
[2019-12-14] MEDS: FUROSEMIDE 40 MG TABLET PO (09:07)
[2019-12-14] MEDS: LORATADINE 10 MG TABLET PO (09:07)
[2019-12-14] MEDS: DOCUSATE SODIUM 100 MG CAPSULE PO (09:07)
[2019-12-14] MEDS: DULoxetine HCL 30 MG CAPSULE.DR PO (09:07)
[2019-12-14] MEDS: ASPIRIN 81 MG ENTERIC TABLET PO (09:08)
[2019-12-14] MEDS: ATORVASTATIN 10 MG TABLET PO (09:08)
[2019-12-14] MEDS: HEPARIN SODIUM 5,000 UNITS/ML VIAL 5000 UNITS SUB-Q (09:08)
--- NOTE | 2019-12-14 09:10 | PM.PNCARD ---
Progress Note: A&P Assessment and Plan (1) Acute on chronic diastolic congestive heart failure: Code(s): I50.33 - Acute on chronic diastolic (congestive) heart failure Status: Acute Assessment and Plan: Grade III diastolic dysfunction and mild systolic dysfunction. Change Furosemide 40 mg IV BID to 40 mg PO daily. He appears to be euvolemic. (2) Hypertension: Code(s): I10 - Essential (primary) hypertension Status: Acute Assessment and Plan: High. Increase Amlodipine 10 mg daily and on Coreg 25 mg BID and on Hydralazine 50 mg TID. F/U with me in 1-2 weeks. (3) Aortic stenosis: Code(s): I35.0 - Nonrheumatic aortic (valve) stenosis Status: Acute Assessment and Plan: Mod-severe. (4) HLD (hyperlipidemia): Code(s): E78.5 - Hyperlipidemia, unspecified Status: Acute (5) Chronic kidney disease, stage IV (severe): Code(s): N18.4 - Chronic kidney disease, stage 4 (severe) Status: Acute Subjective Date/time seen: 12/14/19 09:10 Denies chest pain or sob. Exam Const: General: comfortable and no acute distress Neck: Neck: no JVD Carotids: no bruits Resp: Auscultation: clear to auscultation bilaterally, no crackles, no rales, no rhonchi and no wheezes Cardio: Rate: regular rate Rhythm: regular rhythm Heart sounds: Murmur heart sound present (IV/ systolic murmur RICS) GI: Inspection: non-distended GI Palp: Yes Soft to palpation Neuro: Speech: normal speech Extrem: Right lower extremity: no edema Left lower extremity: no edema Other: Mild left leg and mod right leg edema. Objective Data Vital Signs Vital Signs: Vital Signs - 24 hr 12/13/19 10:23 12/13/19 10:50 12/13/19 12:00 Temperature Pulse Rate 67 Respiratory Rate Blood Pressure Pulse Oximetry 98 97 12/13/19 14:13 12/13/19 16:00 12/13/19 20:00 Temperature Pulse Rate 67 79 94 Respiratory Rate Blood Pressure 144/78 H Pulse Oximetry 12/13/19 20:30 12/13/19 20:48 12/14/19 00:00 Temperature 97.3 F L Pulse Rate 92 92 76 Respiratory Rate 18 Blood Pressure 161/69 H Pulse Oximetry 93 12/14/19 04:00 12/14/19 05:58 12/14/19 09:05 Temperature 97.4 F L Pulse Rate 65 70 80 Respiratory Rate 18 Blood Pressure 150/66 H Pulse Oximetry 97 Intake/Output Intake/Output: Intake & Output 12/11/19 12/12/19 12/13/19 12/14/19 23:59 23:59 23:59 23:59 Intake Total 120 1600 480 Output Total 550 1300 500 Balance -430 300 -20 Meds/Results Medications: Active Medications Generic Name Dose Route Start Last Admin Trade Name Freq PRN Reason Stop Dose Admin Acetaminophen 650 mg 12/13/19 08:37 12/13/19 17:17 Tylenol Tablet PO 650 mg Q12H PRN Administration MILD PAIN 1-3 Amlodipine Besylate 10 mg 12/14/19 09:00 12/14/19 09:04 Norvasc PO 10 mg DAILY TIRSO Administration Aspirin 81 mg 12/13/19 09:00 12/14/19 09:08 Aspirin Ec PO 81 mg DAILY TIRSO Administration Atorvastatin Calcium 10 mg 12/13/19 09:00 12/14/19 09:08 Lipitor PO 10 mg DAILY TIRSO Administration Calcium Carbonate 500 mg 12/13/19 09:00 12/14/19 09:07 Os-Anthony 500 +D Tablet PO 500 mg QAM TIRSO Administration Carvedilol 25 mg 12/12/19 21:00 12/14/19 09:05 Coreg PO 25 mg Q12HR TIRSO Administration Dextrose 12.5 gm 12/13/19 07:40 Dextrose 50% Syringe IV PUSH PRN PRN Hypoglycemia Protocol Docusate Sodium 100 mg 12/13/19 09:00 12/14/19 09:07 Colace Capsule PO 100 mg BID TIRSO Administration Duloxetine HCl 30 mg 12/13/19 09:00 12/14/19 09:07 Cymbalta PO 30 mg DAILY TIRSO Administration Finasteride 5 mg 12/13/19 09:00 12/14/19 09:07 Proscar PO 5 mg DAILY TIRSO Administration Furosemide 40 mg 12/14/19 09:00 12/14/19 09:07 Lasix Tablet PO 40 mg DAILY TIRSO Administration Gabapentin 300 mg 12/13/19 09:00 12/14/19 09:05 Neurontin PO 300
--- NOTE | 2019-12-14 10:20 | PM.DS ---
DS: Admitting Diagnosis Admitting Diagnosis Admitting Diagnosis: Shortness of breath. Acute CHF exacerbation DS: Discharge Diagnosis Discharge Diagnosis (1) Acute on chronic diastolic congestive heart failure: Code(s): I50.33 - Acute on chronic diastolic (congestive) heart failure Status: Acute Assessment and Plan: IV furosemide b.i.d. transitioned PO yesterday per Dr. Corado. Clinical improvement again today. Dr. Corado has increased his Coreg and amlodipine and started hydralazine. Echo during stay shows worsened systolic function and what appears to be stable Spoke to Dr. Corado who is okay for discharge from his standpoint; f/u with him in 1-2 weeks Continue PO 40 mg Lasix Monitor BP daily Discharge home today (2) Aortic stenosis: Code(s): I35.0 - Nonrheumatic aortic (valve) stenosis Status: Acute Assessment and Plan: Mod to severe noted on Echo during stay F/u with Dr. Corado as an outpatient (3) Chronic progressive renal failure, stage 4 (severe): Code(s): N18.4 - Chronic kidney disease, stage 4 (severe) Status: Acute Assessment and Plan: Cr 2.50 improved from yesterday. Kidney function has progressed, with baseline creatinine probably around 2.10 if not higher. Will do BMP in 1 week for further monitoring F/u with Dr. Perez at scheduled appointment (4) Hypertension: Code(s): I10 - Essential (primary) hypertension Status: Acute Assessment and Plan: BP 150s sys this afternoon. Coreg and amlodipine have been increased and he has been started on hydralazine. Cardiology following and appreciate rec Monitor (5) Type 2 diabetes mellitus with peripheral neuropathy: Code(s): E11.42 - Type 2 diabetes mellitus with diabetic polyneuropathy Status: Acute Assessment and Plan: Most recent hemoglobin A1c was 5.6%. Continue home oral medication Initiate sliding scale insulin, Accu-Cheks, and hypoglycemic protocol during stay DS: Summary Hospital Course Reason for hospitalization: SOB; acute on chronic CHF Hospital Course: Patient is a 84 yo M with aortic stenosis, diastolic congestive heart failure, chronic kidney disease, hypertension, and type 2 diabetes mellitus who presented to the emergency department on 12/11 for evaluation of progressive shortness of breath with exertion for previous 2 days prior to presentation. While in the ED, CXR showed mild congestive changes including mild pleural effusion, subpleural edema; BNP 98423; Cr 2.60. He was found to be hypoxic, requiring 1L O2 NC. CHF exacerbation suspected. Patient admitted under this setting. Dr. Corado consulted from the ED. Please see H&P for further details. Presenting VS: Temp Pulse Resp BP Pulse Ox 98.2 F 79 18 177/80 H 95 RA 12/12/19 12:31 12/12/19 12:31 12/12/19 12:31 12/12/19 12:31 12/12/19 12:31 Presenting Pertinent labs: BUN 52, Cr 2.60, BNP 36768. ABG on RA showed pH of 7.37, pO2 61.7, HCO3 21.8, sat 91.1%. CBC, chemistry, ABG otherwise unremarkable Micro: none Imaging: Chest X-Ray 12/12/19 13:07 IMPRESSION: Mild cardiomegaly, mild congestive changes including mild pleural effusions, subpleural edema Bibasilar infiltrate and/atelectasis Aortic atherosclerosis Osteopenia Echo 12/13/19 Summary 1. Complete two-dimensional, color flow and Doppler transthoracic echocardiogram is performed. 2. Left ventricular chamber dimension is mildly enlarged. 3. Left ventricular systolic function is mildly reduced, estimated at 45-50%. 4. There is moderately increased left ventricular wall thickness. 5. The left ventricular diastolic function is grade III diastolic dysfunction. 6. E/e' 24
[2019-12-14 11:55] LABS: Glucose Point of Care 146 (65-105)
[2019-12-14] MEDS: INSULIN ASPART (*BKC) 100 UNITS/ML SUB-Q (11:59)
[2019-12-14 12:09] LABS: Glucose Point of Care 205 (65-105)
== END 2019-12-14 12:25 | disposition home or self-care (01) ==
LOC: ANHED 15:33 → ANH3MED 15:59
PROVIDERS: Physician Assistant; Admitting Provider Family Medicine; Emergency Provider General Practice; PCP Family Medicine; Visit Provider Hospitalist
DX: I13.0 Hypertensive heart and chronic kidney disease with heart failure and stage 1 through stage 4 chronic kidney disease, or unspecified chronic kidney disease (principal); I50.33 Acute on chronic diastolic (congestive) heart failure; E11.42 Type 2 diabetes mellitus with diabetic polyneuropathy; E11.22 Type 2 diabetes mellitus with diabetic chronic kidney disease; E78.5 Hyperlipidemia, unspecified; I35.0 Nonrheumatic aortic (valve) stenosis; N18.4 Chronic kidney disease, stage 4 (severe); R60.9 Edema, unspecified; Z79.4 Long term (current) use of insulin; Z23 Encounter for immunization; Z87.891 Personal history of nicotine dependence
CPT/HCPCS: 36415; 36600; 71046; 80048; 80053; 82805; 83615; 83735; 83880; 85025; 85027; 90471; 90686; 93005; 93306; 96372; 96374; 96376; 99212; 99285; A9270; G0008; G0378; G0463; J1644; J1815; J1940

== ENCOUNTER 2020-02-06 08:37 | Inpatient (IN) | payer MEDICARE, OTHER, SELFPAY ==
[2020-02-06] VITALS (22 sets, daily range): BP systolic 96–162; BP diastolic 59–82; PULSE 57–69; RESP 16–20; TEMP 35.9–36.7; O2SAT 76–100; BMI 28.2
--- NOTE | ~2020-02-06 | XR_ITS ---
EXAMINATION: XR fl guide central line place DATE: 02/23/2020 08:13 INDICATION: Central placement. TECHNIQUE: 2 intraoperative fluoroscopic views of the chest were obtained. I was not present. Fluoros copy exposure time was 6 seconds. COMPARISON: Chest 2 views 02/17/2020 FINDINGS: There is a right internal jugular central venous catheter with tip at superior cavoatrial j unction. IMPRESSION: 1. Central line tip at superior cavoatrial junction. Reviewed, dictated and finalized at location A. [facility]
--- NOTE | ~2020-02-06 | XR_ITS ---
EXAMINATION: XR chest 2V DATE: 02/29/2020 17:12 INDICATION: Hypoxia. Confusion. TECHNIQUE: Frontal and lateral views of the chest were obtained. COMPARISON: Chest single view 02/23/2020, CT abdomen 06/11/2019 FINDINGS: There are airspace opacities in right mid and lower lung zones and all left lung zones. The re are small pleural effusions. No pneumothorax. Cardiomegaly is noted. A right internal jugular cent ral venous catheter is seen with tip in the right atrium. There are old healed right rib fractures. IMPRESSION: 1. Diffuse lung disease with improvement on the right, consistent with pulmonary edema versus pneumon ia. 2. Stable small pleural effusions. 3. Cardiomegaly. Reviewed, dictated and finalized at location A. HT DECK OFFICER IMPRESSION: 1. Diffuse lung disease with improvement on the right, consistent with pulmonar y edema versus pneumonia. 2. Stable small pleural effusions. 3. Cardiomegaly.
--- NOTE | ~2020-02-06 | XR_ITS ---
EXAMINATION: XR abdomen NG/feed tube rechec DATE: 03/10/2020 23:19 INDICATION: Nasogastric tube recheck TECHNIQUE: A supine view of the abdomen and lower chest was obtained for evaluation of feeding tube placement. COMPARISON: 03/07/2020 FINDINGS: Is a gastric tube tip in the body of the stomach with proximal side-port near the gastroesophageal ju nction. Moderate amount of stool throughout the colon the visualized abdomen. No dilated gas-filled l oops of bowel to suggest obstruction. Lung bases are clear. Heart size is normal. Large-bore dual-lum en central venous catheter with distal tip near the superior cavoatrial junction. IMPRESSION: 1. Nasogastric tube tip in the stomach. Reviewed, dictated and finalized at location A. ECTIONAL CASE MANAGER
--- NOTE | ~2020-02-06 | US_ITS ---
EXAMINATION: US venous doppler [facility] DATE: 02/06/2020 11:40 INDICATION: Bilateral lower limb swelling TECHNIQUE: Grayscale ultrasound images without and with compression and Doppler ultrasound images of the bilateral lower extremity veins were obtained. COMPARISON: 07/22/2019 FINDINGS: The visualized portions of right common femoral vein, profunda (deep) femoral vein, femoral vein, pop liteal vein, posterior tibial veins, peroneal veins, gastrocnemius vein and greater saphenous vein ou tflow are patent. Again seen are a few shotty right inguinal lymph nodes measuring up to 10 mm in max imal short axis diameter. The visualized portions of left common femoral vein, profunda femoral vein, femoral vein, popliteal v ein, posterior tibial veins, peroneal veins, gastrocnemius vein and greater saphenous vein outflow ar e patent. IMPRESSION: 1. No deep venous thrombosis in either lower limb. Reviewed, dictated and finalized at location A. UE INSTRUCTOR
--- NOTE | ~2020-02-06 | US_ITS ---
EXAMINATION: US renal BI DATE: 02/07/2020 09:50 INDICATION: Rising creatinine TECHNIQUE: Multiple grayscale and Doppler ultrasound images of the kidneys were obtained. COMPARISON: 06/12/2019 FINDINGS: The right kidney measures 9.6-4 0.8 x 4.8 cm and contains cysts measuring up to 9 mm. The l eft kidney measures 11.2 x 5.5 x 5.8 cm and contains cysts measuring up to 9 mm. The kidneys demonstr ate increased parenchymal echogenicity. There is no hydronephrosis. The bladder is moderately distend ed. IMPRESSION: 1. Medical renal disease. 2. Moderate bladder distention. Reviewed, dictated and finalized at location A. ENTICE PAINTER HAND
--- NOTE | ~2020-02-06 | XR_ITS ---
EXAMINATION: XR chest ET placement EXAM DATE: 03/07/2020 02:58 INDICATION: After intubation to confirm ET placement . COVID. TECHNIQUE: Portable AP frontal chest x-ray was obtained. Comparison is made to prior examination from 03/02/2020. FINDINGS: Endotracheal tube tip is 5 centimeters above the francia. There is a nasogastric tube seen with tip collimated off the study, but below the left hemidiaphragm. There is a right-sided Mcclain c atheter. There is ill-defined bibasilar acute airspace disease. Hyperinflation. There are no sizable pleural effusions. There is no pneumothorax suspected. The cardiomediastinal silhouette is prominent but magnified on this AP technique. IMPRESSION: 1. Line and tube(s) in position. 2. Ill-defined bibasilar pneumonia or edema. Reviewed, dictated and finalized at location A. CH PATHOLOGIST ASSISTANT
--- NOTE | ~2020-02-06 | XR_ITS ---
EXAMINATION: XR barium swallow modified DATE: 02/16/2020 11:10 INDICATION: Dysphagia. TECHNIQUE: The patient was given barium-containing material of multiple consistencies to swallow by t david speech pathologist while I performed fluoroscopy. Fluoroscopy exposure time was 2.7 minutes. The n umber of fluoroscopy images saved to the PACS was 1. Dose-area product was 1.466 Gy-cm^2. FINDINGS: There was laryngeal penetration and aspiration of thin liquids. IMPRESSION: 1. Laryngeal penetration and aspiration of thin liquids. 2. Please refer to the speech therapy report for recommendations. Reviewed, dictated and finalized at location A. CH STORE MANAGER
--- NOTE | ~2020-02-06 | CT_ITS ---
EXAMINATION: CT brain wo con DATE: 03/13/2020 09:40 INDICATION: Altered mental status TECHNIQUE: Computed tomography (CT) of the head was performed without intravenous contrast. Sagittal and coronal reconstructions were performed. The mA was adjusted according to patient size. Iterative reconstruction technique was employed. The dose-length product was 681.00 mGy-cm. COMPARISON: head CT dated 03/01/2020 FINDINGS: Old right temporal craniotomy and changes of prior aneurysm clipping in the region of the right carot id siphon and right middle cerebral artery. Small region of encephalomalacia in the right frontal lob e at the anterior margin of the sylvian fissure which could be related to prior infarct, surgery or t rauma. No acute intracranial hemorrhage, acute infarction or abnormal extra axial fluid collection. S mall old lacunar infarct at the right thalamus and possibly also at the right side of the reena. There is moderate scattered white matter hypoattenuation consistent with chronic small vessel ischemic dis ease. Symmetric prominence of the sulci and ventricles consistent with moderate age-appropriate diff use cerebral volume loss. No mass/mass effect. Changes of bilateral intraocular lens replacement. The orbits and mastoid air cells are normal. Mild mucosal thickening throughout the paranasal sinuses wi th more prominent opacification of the left frontoethmoidal recess. Intracranial calcified cerebral a therosclerosis is noted. Rightward deviation of the anterior nasal septum which may represent sequela of old fracture. No acute fractures. IMPRESSION: 1. No acute intracranial process. 2. Small region of encephalomalacia in the right frontal lobe which could represent sequela of prior infarct, surgery or trauma with postoperative changes right temporal craniotomy and aneurysm clips in the region of the right carotid siphon and right middle cerebral artery. Correlate with surgical his tory. 3. Small old lacunar infarct at the right thalamus and possibly at the right reena. 4. Age-related changes including moderate diffuse volume loss and moderate scattered white matter hyp oattenuation consistent with chronic small vessel ischemic disease.. Reviewed, dictated and finalized at location A. R BOX CUTTER IMPRESSION: 1. No acute intracranial process. 2. Small region of encephalomalacia in the right frontal lobe which could repre sent sequela of prior infarct, surgery or trauma with postoperative changes rig ht temporal craniotomy and aneurysm clips in the region of the right carotid si phon and right middle cerebral artery. Correlate with surgical history. 3. Small old lacunar infarct at the right thalamus and possibly at the right po ns. 4. Age-related changes including moderate diffuse volume loss and moderate scat tered white matter hypoattenuation consistent with chronic small vessel ischemi c disease..
--- NOTE | ~2020-02-06 | XR_ITS ---
XR chest port-a-cath/central DATE: 02/23/2020 08:27 INDICATION: Insertion of tunneled dialysis catheter TECHNIQUE: Portable upright AP chest on 02/23/2020 at 0822 hours COMPARISON: 02/16/2022 view chest FINDINGS: Dual lumen right large bore internal jugular central venous catheter tip overlies the right atrium. No evidence of pneumothorax. Cardiomegaly. Aortic calcification. There is pulmonary vascular congestion and redistribution. There is bilateral mild pleural effusion. There is mild prominence of the minor fissure which may be due to fluid in the fissure or subpleural edema. There are bilateral predominantly central and lower lung zone infiltrates, most consistent with pulmo nary edema. Pneumonia or aspiration are not excluded. Old healed right rib fractures. Diffuse osteopenia. IMPRESSION: Interval placement of right dialysis catheter, catheter tip overlying right atrium; no pn eumothorax Congestive heart failure, pulmonary edema, increased in severity since 02/17/2020 Reviewed, dictated and finalized at Location A. Reviewed, dictated and finalized at location B. CTOR OF PATIENT SAFETY IMPRESSION: Interval placement of right dialysis catheter, catheter tip overlyi ng right atrium; no pneumothorax Congestive heart failure, pulmonary edema, increased in severity since 02/17/20 20
--- NOTE | ~2020-02-06 | XR_ITS ---
EXAMINATION: XR abdomen NG/feed tube insert EXAM DATE: 03/07/2020 02:58 INDICATION: feeding tube placement TECHNIQUE: Frontal projection(s) of the abdomen for interpretation. Comparison is made to prior exami nation from 06/12/2019. FINDINGS: Feeding tube tip and side-port project over gastric bubble, expected position. There is a double-lumen dialysis catheter tip overlying cavoatrial junction. Lung bases unremarkable. Nonobstruc tive upper abdominal bowel gas pattern. IMPRESSION: Feeding tube tip in position. Reviewed, dictated and finalized at location A. EMAID
--- NOTE | ~2020-02-06 | XR_ITS ---
EXAMINATION: XR chest 1V portable DATE: 03/13/2020 06:28 INDICATION: COVID-19 pneumonia. TECHNIQUE: A single frontal view of the chest was obtained. COMPARISON: Chest single view 03/12/2020, CT abdomen 06/11/2019 FINDINGS: There is mild scarring at the lung apices. There are airspace opacities in right mid and lo wer lung zones and left lower lung zone. No pleural effusion or pneumothorax. The heart size is edouard l. The endotracheal tube tip is 4.0 cm above the francia. The nasogastric tube tip is in the stomach. A right internal jugular central venous catheter is seen with tip at the superior cavoatrial junction . IMPRESSION: 1. Worsened airspace opacities in right mid and lower lung zones and left lower lung zone, consistent with pneumonia versus pulmonary edema. Reviewed, dictated and finalized at location B. RVISOR OF OFFICIALS
--- NOTE | ~2020-02-06 | XR_ITS ---
EXAMINATION: XR chest 1V portable EXAM DATE: 02/14/2020 07:34 INDICATION: CHF. TECHNIQUE: Portable AP frontal chest x-ray was obtained. Comparison is made to prior examination from 02/09/2020. FINDINGS: Again there is cardiomegaly and congestion. Again there are small to moderate pleural effus ions. There is progression of the airspace disease now also involving upper lung zones, could be some what groundglass in density. Differential diagnosis includes edema, ARDS, infection. There are old ri ght rib fractures. No pneumothorax. IMPRESSION: 1. Findings consistent with CHF exacerbation. 2. Diffuse edema, ARDS, and/or infection. 3. Small to moderate pleural effusions. Reviewed, dictated and finalized at location A. ILLON DEBEADER
--- NOTE | ~2020-02-06 | CT_ITS ---
EXAMINATION: CT brain wo con DATE: 03/01/2020 09:28 INDICATION: Confusion TECHNIQUE: Computed tomography (CT) of the head was performed without intravenous contrast. The mA wa s adjusted according to patient size. Iterative reconstruction technique was employed. Exam dose: 68 1.00 mGy-cm total exam DLP. COMPARISON: 11/03/2017 CT brain FINDINGS: The technologist notes that the patient moved throughout the examination and would not hold still, resulting in motion artifact. There is cerebral and cerebellar volume loss consistent with atrophy. There is nonspecific diminished attenuation of the cerebral white matter, likely due to chronic small vessel ischemic changes. Prominent bilateral carotid siphon internal carotid artery calcifications a nd vertebral and basilar artery calcifications are noted. No intracranial mass lesion or hemorrhage, midline shift or mass effect is detected. No subdural or e pidural hematoma. Right temporal parietal bone flap is situated in place. Probable aneurysm clips along the right supra clinoid area. No fracture or bone destruction of the cranial vault. 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 Reviewed, dictated and finalized at location A. ATING MACHINE TRANSCRIBER
--- NOTE | ~2020-02-06 | XR_ITS ---
EXAMINATION: XR chest 2V DATE: 02/17/2020 08:33 INDICATION: Weakness and congestive heart failure TECHNIQUE: AP and lateral views of the chest are obtained. COMPARISON: 02/14/2020 FINDINGS: There is stable cardiomegaly. Small pleural effusions persist with slight worsening on the right. There is a mild diffuse interstitial pattern. More focal airspace opacities are present in the lung bases. No pneumothorax is identified. Healed right-sided rib fractures are noted. IMPRESSION: 1. Cardiomegaly with mild pulmonary edema. 2. Small pleural effusions with slight worsening on the right. 3. Bibasilar airspace opacity, consistent with atelectasis versus pneumonia. Reviewed, dictated and finalized at location A. ICE WORKER HELPER
--- NOTE | ~2020-02-06 | XR_ITS ---
EXAMINATION: XR chest ET placement, XR abdomen NG/feed tube rechec DATE: 03/12/2020 02:01 INDICATION: Repositioned endotracheal tube and nasogastric tube TECHNIQUE: 1. Frontal view of the chest was obtained. 2. Upright AP view of the abdomen was obtained. COMPARISON: Chest radiograph dated 03/10/2020 FINDINGS: Endotracheal tube tip 4.3 cm above the francia. Large-bore dual-lumen right internal jugular central v enous catheter with distal tip at the high right atrium. Nasogastric tube tip in proximal side port i n the body of the stomach. Shifting pattern of mild interstitial and airspace opacities now greater in the left lower lung zone with improvement in the right lower lung zone. No pleural effusion or pneumothorax. The cardiomediast inal silhouette is normal. IMPRESSION: 1. Lines and tubes in expected positions. 2. Mild interstitial and airspace opacities in the bilateral lower lung zones with improvement on the right and worsening on the left favoring shifting mild pulmonary edema and atelectasis although diff erential includes pneumonia. Reviewed, dictated and finalized at location A. ROAD DETECTIVE IMPRESSION: 1. Lines and tubes in expected positions. 2. Mild interstitial and airspace opacities in the bilateral lower lung zones w ith improvement on the right and worsening on the left favoring shifting mild p ulmonary edema and atelectasis although differential includes pneumonia.
--- NOTE | ~2020-02-06 | XR_ITS ---
EXAMINATION: XR chest 2V DATE: 02/06/2020 09:11 INDICATION: Shortness of breath TECHNIQUE: AP and lateral views of the chest are obtained. COMPARISON: 12/12/2019 FINDINGS: There are opacities of the mid and lower lung zones, right greater than left. Small pleural effusions are present. Cardiomegaly is noted. There is no pneumothorax. There is mild thoracic spond ylosis. Healed right-sided rib fractures are noted. IMPRESSION: 1. Cardiomegaly. 2. Opacities of the mid and lower lung zones which may reflect pneumonia and/or pulmonary edema and/o r atelectasis. 3. Small pleural effusions. Reviewed, dictated and finalized at location A. RANCE WRITER IMPRESSION: 1. Cardiomegaly. 2. Opacities of the mid and lower lung zones which may reflect pneumonia and/or pulmonary edema and/or atelectasis. 3. Small pleural effusions.
--- NOTE | ~2020-02-06 | XR_ITS ---
XR chest 1V portable 03/10/2020 06:10 Indication: Respiratory failure Procedure: AP portable chest Comparison: Comparison to multiple prior studies sequentially, with oldest reviewed study dated 02/04. Findings: Endotracheal tube tip 3.1 cm above the francia. NG tube in the stomach. Large bore right int ernal jugular central venous catheter in the SVC. Mild diffuse bilateral interstitial and airspace di sease unchanged. Impression: 1: Stable mixed interstitial and airspace disease throughout both lungs, pneumonia versus edema. Reviewed, dictated and finalized at location A. RACT CLERK AUTOMOBILE Impression: 1: Stable mixed interstitial and airspace disease throughout both lungs, pneumo antonino versus edema.
--- NOTE | ~2020-02-06 | XR_ITS ---
EXAMINATION: XR chest 1V portable DATE: 03/14/2020 05:52 INDICATION: COVID TECHNIQUE: frontal view of the chest was obtained. COMPARISON: Chest radiograph dated 03/13/2020 FINDINGS: Endotracheal tube tip 3.9 cm above the francia. Large-bore dual-lumen right internal jugular central v enous catheter with distal tip at the superior cavoatrial junction. Nasogastric tube extends into the stomach. Worsening patchy airspace opacities in the bilateral lower lung zones. No pleural effusion or pneumot horax. The cardiomediastinal silhouette is normal. IMPRESSION: 1. Worsening patchy opacities in the bilateral lower lung zones most likely pneumonia with differenti al including atelectasis and pulmonary edema. Reviewed, dictated and finalized at location A. ENTER MATE IMPRESSION: 1. Worsening patchy opacities in the bilateral lower lung zones most likely pne umonia with differential including atelectasis and pulmonary edema.
--- NOTE | ~2020-02-06 | XR_ITS ---
EXAMINATION: XR chest 1V portable EXAM DATE: 03/08/2020 06:18 INDICATION: COVID 19. TECHNIQUE: Portable AP frontal chest x-ray was obtained. Comparison is made to prior examination from 03/07/2020. FINDINGS: Endotracheal tube tip is 2 centimeters above the francia. There is a nasogastric tube seen with tip collimated off the study, but below the left hemidiaphragm. There is a right-sided Mcclain c atheter. There is ill-defined bibasilar acute airspace disease. Hyperinflation. There are no sizable pleural effusions. There is no pneumothorax suspected. The cardiomediastinal silhouette is prominent but magnified on this AP technique. There is no significant interval change. IMPRESSION: 1. Line and tube(s) in position. 2. Ill-defined bibasilar pneumonia or edema. SUPERINTENDENT Reviewed, dictated and finalized at location A.
--- NOTE | ~2020-02-06 | XR_ITS ---
EXAMINATION: XR abdomen NG/feed tube rechec DATE: 03/11/2020 01:13 INDICATION: Nasogastric tube recheck TECHNIQUE: A supine view of the abdomen and lower chest was obtained for evaluation of feeding tube placement. COMPARISON: 03/10/2020 FINDINGS: Nasogastric tube has been advanced slightly with distal tip in proximal side port now in the body of the stomach. Large amount of stool throughout the visualized transverse colon. Lung bases are clear. Heart size is normal. Large-bore dual-lumen central venous catheter with distal tip near the superior cavoatrial junction. IMPRESSION: 1. Nasogastric tube in the stomach. Reviewed, dictated and finalized at location A. OM LIQUOR ATTENDANT
--- NOTE | ~2020-02-06 | XR_ITS ---
XR chest 1V portable DATE: 03/02/2020 05:56 INDICATION: Cough, confusion. Covid-positive. TECHNIQUE: Portable AP chest on 03/02/2020 at 0522 hours COMPARISON: 02/29/2020 AP and lateral chest FINDINGS: Dual lumen right internal jugular central venous catheter tip overlies the right atrium. No pneumothorax. Cardiomegaly. Aortic calcification. There is mild prominence of the minor fissure which may indicate subpleural edema. There is minimal i f any pleural effusion. There are bilateral diffuse patchy groundglass infiltrates with some patchy consolidation in the left lower lobe. There is mild improvement on the right 02/29/2020. IMPRESSION: Diffuse bilateral pulmonary infiltrates, mildly improved on the right since 02/29/2020 Reviewed, dictated and finalized at location A. S TYPE SCREW MACHINE OPERATOR IMPRESSION: Diffuse bilateral pulmonary infiltrates, mildly improved on the rig ht since 02/29/2020
--- NOTE | ~2020-02-06 | XR_ITS ---
XR chest 1V portable 03/09/2020 05:46 Indication: Respiratory failure Procedure: AP portable chest Comparison: Comparison to multiple prior studies sequentially, with oldest reviewed study dated 02/04. Findings: Large bore dual-lumen central venous catheter tips in the SVC. Heart size normal. Diffuse b ilateral airspace disease. No pleural effusion. There is left apical pleural thickening. Endotracheal tube tip 4 cm above the francia. NG tube in the stomach. No pneumothorax. Impression: 1: Persistent diffuse bilateral airspace disease without significant change, pneumonia versus edema. Reviewed, dictated and finalized at location A. ULATION SALES REPRESENTATIVE Impression: 1: Persistent diffuse bilateral airspace disease without significant change, pn eumonia versus edema.
--- NOTE | ~2020-02-06 | XR_ITS ---
EXAMINATION: XR chest 2V DATE: 02/09/2020 09:14 INDICATION: Congestive heart failure TECHNIQUE: AP and lateral views of the chest are obtained. COMPARISON: 02/06/2020 FINDINGS: There are small, stable pleural effusions. Airspace opacities of the mid and lower lung zon es persist without significant change. There is stable cardiomegaly. No pneumothorax is identified. H ealed right-sided rib fractures are noted. There is mild thoracic spondylosis. IMPRESSION: 1. Stable cardiomegaly. 2. Small, stable pleural effusions. 3. Persistent airspace opacities of the mid and lower lung zones, consistent with pneumonia and/or pu lmonary edema and/or atelectasis. Reviewed, dictated and finalized at location A. CONSERVATION AIDE IMPRESSION: 1. Stable cardiomegaly. 2. Small, stable pleural effusions. 3. Persistent airspace opacities of the mid and lower lung zones, consistent wi th pneumonia and/or pulmonary edema and/or atelectasis.
--- NOTE | 2020-02-06 08:54 | ECG_ITS ---
Measurements Intervals [place] Rate: 70 P: 22 [place]: 126 QRS: 41 QRSD: 107 T: 51 QT: 414 QTc: 447 Interpretive Statements SINUS RHYTHM VENTRICULAR PREMATURE COMPLEX LEFT VENTRICULAR HYPERTROPHY AND ST-T CHANGE BORDERLINE ST-T WAVE ABNORMALITY- INF/LAT LEADS BASELINE ARTIFACT- I, II, III, AVR, AVL, AVF, V6 BORDERLINE ECG Electronically Signed On 02-06-2020 9:08:20 [employer]NAGER [employer] by Luke Corado D.O.
[2020-02-06 09:03] LABS: Basophils Percent Auto 0.4 % (0.2-1.2); Eosinophils Percent Auto 0.3 % (0-4.4); Hematocrit 34.1 % (42.0-52.0); Hemoglobin 11.1 g/dL (14.0-18.0); Immature Granulocyte Absolute 0.08 K/mm3 (0.00-0.031); Immature Granulocyte Percent A 0.7 % (0-0.5); Lymphocytes Absolute Auto 0.57 K/mm3 (0.9-3.2); Mean Corpuscular HGB Conc 32.6 g/dl (32-36); Mean Corpuscular Hemoglobin 32.9 pg (26-34); Mean Corpuscular Volume 101.2 fl (80-100); Monocytes Absolute Auto 1.1 K/mm3 (0.1-0.6); Monocytes Percent Auto 9.4 % (2.6-8.5); Neutrophils Absolute Auto 9.6 K/mm3 (1.3-6.7); Neutrophils Percent Auto 84.2 % (45.5-73.1); Platelet Count Result 146 k/mm3 (150-375); Red Blood Count 3.37 M/mm3 (4.6-6.20); Red Cell Distribution Width 15.5 % (11.5-14.5); White Blood Count 11.4 K/mm3 (4.5-10.0)
[2020-02-06 09:13] LABS: INR 1.2; Prothrombin Time 15.5 Seconds (11.1-14.7)
[2020-02-06 09:14] LABS: Partial Thromboplastin Time 34.4 SECONDS (22.3-36.8)
[2020-02-06 09:17] LABS: Anion Gap 8 mmol/L (8-16); Blood Urea Nitrogen 60 mg/dL (9-20); Calcium 9.5 mg/dL (8.4-10.2); Carbon Dioxide 27 mmol/L (22-30); Chloride 104 mmol/L (98-107); Estimated CRCL calculation 20 ml/min; Estimated Glomerular Filt Rate 19; Glucose 167 mg/dL (75-110); Potassium 4.6 mmol/L (3.4-5.0); Sodium 139 mmol/L (137-145)
[2020-02-06 09:31] LABS: NT Pro B Type Natriuretic Pept 32300 PG/ML (5-100); Troponin I 0.206 ng/mL (0.000-0.034)
--- NOTE | 2020-02-06 09:31 | ED.SOB ---
HPI - SOB/Dyspnea General Chief Complaint: Shortness of Breath/Dyspnea Stated Complaint: CHF, SOB Time Seen by Provider: 02/06/20 08:49 Source: patient Mode of arrival: ambulatory Limitations: no limitations History of Present Illness HPI Narrative: This patient is an 84 year old male with history of chronic renal disease, cHF and hypertension who presents for evaluation of worsening shortness of breath. He reports chronic sob but it became worse this morning. He was found to be 76 % on room air on arrival to ER. His daughter reports he developed worsening swelling over the weekend and he has gained 10 pounds over the weekend. He denies fever, chills, diarrhea, abdominal pain or chest pain. He reports a nonproductive cough. His daughter states his program development manager, Dr. Corado, increased his lasix yesterday to 40 mg twice daily. Related Data Home Medications Medication Instructions Recorded Confirmed aspirin [Aspir-81] 81 mg PO DAILY 02/04/19 02/06/20 loratadine 10 mg PO DAILY 02/04/19 02/06/20 Ca-D3-mag ag-jswm-bpw-lucrecia-bor 1 tablet PO DAILY 06/10/19 02/06/20 [Calcium 600-D3 Plus (mag-zinc)] Men's 50 Plus Multivitamin 1 tablet PO DAILY 06/10/19 02/06/20 acetaminophen [Tylenol 8 Hour] 650 mg PO Q12H PRN 06/10/19 02/06/20 docusate sodium 100 mg PO BID 06/10/19 02/06/20 finasteride 5 mg PO DAILY 06/10/19 02/06/20 tamsulosin 0.4 mg PO HS 06/10/19 02/06/20 vitamin B complex [Super B-50 1 cap PO HS 06/10/19 02/06/20 Complex] guaifenesin 600 mg tablet, 600 mg PO BID 01/22/20 02/06/20 extended release 12 hr linagliptin 5 mg tablet 5 mg PO QAM 01/22/20 02/06/20 amlodipine 5 mg tablet 5 mg PO DAILY tablet 01/23/20 02/06/20 duloxetine 30 mg capsule,delayed See Rx Instructions .ROUTE 01/23/20 02/06/20 release .COMPLEX cap pantoprazole 40 mg tablet,delayed 40 mg PO QAM 01/23/20 02/06/20 release furosemide [Lasix] 40 mg PO BID 02/06/20 02/06/20 Allergies Allergy/AdvReac Type Severity Reaction Status Date / Time Sulfa (Sulfonamide Allergy Severe Hives Verified 02/06/20 08:54 Antibiotics) Review of Systems Review of Systems: All systems reviewed & are unremarkable except as noted in HPI and below Constitutional: Constitutional: Denies chills and Denies fever(s) ENT: Denies nasal congestion and Denies sore throat Cardiovascular: Cardiovascular: Denies chest pain Respiratory: Respiratory: Reports cough and Reports dyspnea Gastrointestinal: Gastrointestinal: Denies abdominal pain, Denies diarrhea, Reports nausea and Reports vomiting [facility] Past Medical History Medical History (Updated 02/06/20 @ 16:52 by Johana Deshpande MD) Abdominal aortic aneurysm Infrarenal abdominal aortic aneurysm measuring 3.4 cm on imaging in June 2019. Aortic stenosis (~12/2019) Severe aortic valve sclerosis with moderate to severe aortic valve stenosis with a peak velocity of 309 cm/s, mean gradient of 18 mmHg, and aortic valve area of 1.0 cm2. Arthritis Benign prostatic hyperplasia Bilateral inguinal hernia Bilateral fat containing inguinal hernias noted on CT in 02/2019. Chronic anemia Chronic progressive renal failure, stage 4 (severe) Creatinine varies, ranging between 1.9 and 2.50. Cognitive impairment Combined systolic and diastolic congestive heart failure (~12/2019) Mildly reduced LV systolic function, estimated at 45-50% with grade 3 diastolic dysfunction. Depression Dysphagia Gastritis Noted on EGD June 2019. Gastroesophageal reflux Hyperlipidemia Hypertension Psoriasis Previously on methotrexate, which was recently stopped due to oral ulcers. Type 2 diabetes mellitus with peripheral neuropathy Hemoglobin A1c was 5.6% on 06/23/2019. Vitamin D deficiency Surgical History Surgical History History of cataract extraction History of colon resection For benign tumor. History of tonsillectomy Family History Family History (Reviewed
[2020-02-06 09:50] LABS: Alveolar/Arterial O2 Gradient 82.3 mmHg; Base Excess ABG -3.8 mEq/l (+/-2.0); Carboxyhemoglobin 2.5 % THb (0-2.0); Fractional Inspired Oxygen 28 %; HCO3 ABG 20.6 mEq/l (22.0-26.0); Methemoglobin ABG 0.1 %THb (0-1.5); Modified Allen's Test Pass; Oxygen Content ABG 15.1 %vol (16.0-22.0); Oxygen Saturation ABG 95.2 % (95.0-100.0); Oxyhemoglobin 91.1 % THb (90.0-100.0); PCO2 ABG 35.1 mmHg (35.0-45.0); PO2 ABG 75.9 mmHg (80.0-100.0); PO2 FiO2 Ratio Arterial Blood 2.71 %; Reduced Hemoglobin 6.3 %THb (0-5.0); Site Drawn RIGHT RADIAL; Total Hemoglobin 11.7 g/dL (12.0-18.0); pH ABG 7.387 (7.350-7.450)
[2020-02-06 09:51] LABS: Device NASAL CANNULA
[2020-02-06] MEDS: FUROSEMIDE INJ 40 MG/4 ML VIAL IV PUSH ×2 (12:53→20:28)
[2020-02-06 12:56] LABS: Troponin I 0.242 ng/mL (0.000-0.034)
--- NOTE | 2020-02-06 13:41 | PC.NURSE ---
This patient, Dell Leon Sr., was admitted to IMU Room 201-01. Patient/family oriented to hospital policies and general routines including ID bracelet, bed and alarms, visiting hours, pain management, procedures, bathroom and other care routines, personal items, smoking policy, room service/diet, and visiting hours. Information on how to activate the Rapid Response Team has been discussed. Patient/Family are encouraged to report perceived risks to care and to ask questions if they do not understand what they are told or what they should do.
--- NOTE | 2020-02-06 14:12 | PM.CNCAR ---
Assessment and Plan Assessment and plan (1) Chronic progressive renal failure, stage 4 (severe): Code(s): N18.4 - Chronic kidney disease, stage 4 (severe) Status: Acute Assessment and Plan: Continue to monitor kidney function and electrolytes as he diuresis. He sees Dr. Perez [facility] nephrology. (2) Hypertension: Code(s): I10 - Essential (primary) hypertension Status: Acute Assessment and Plan: Mildly high. Monitor as he diuresis. (3) Diastolic heart failure: Code(s): I50.30 - Unspecified diastolic (congestive) heart failure Status: Acute Assessment and Plan: Grade III diastolic heart failure that is acute on chronic with mild chronic systolic heart failure with EF 45-50%. Continue with Lasix 40 mg IV BID. (4) Aortic stenosis: Code(s): I35.0 - Nonrheumatic aortic (valve) stenosis Status: Acute Assessment and Plan: Mod-severe. (5) HLD (hyperlipidemia): Code(s): E78.5 - Hyperlipidemia, unspecified Status: Acute History of Present Illness History of Present Illness Consult date/time: 02/06/20 14:12 Reason for consult: CHF. Patient is a 84 yr old man who is my regular cardiology patient who presents to ER for sob. He has a history of mod-severe , CKD stage IV, diastolic heart failure, DM, hypertension, abnormal nuclear stress test but asymptomatic. Presents with his daughter. States that they noticed swelling of legs and he had sob this morning. He felt out of it this morning and shaky. After he took his medications his sob resolved. His dry weight at home is about 219 pounds but in the last week his weight went up to 227 pounds. Currently no longer sob after given Lasix 40 mg IV in ER. No apparent edema of legs currently. He is wearing compression stockings. He was hospitalized with diastolic heart failure on 12/12/19. Reports when lying back he does cough. Denies chest pain, PND. Reports he has balance issues and weakness and is limited at walking a few steps with a walker. Admits to PRYOR walking minimal distance also in his house, but is more limited by instability. Cardiovascular Procedures Echo/MUGA:: 12/13/19 Echo: EF 45-50%, mild LVE, mod LVH, grade III diastolic dysfunction (E/e' 24), mild LAE, mod-severe (1.0 cm2), mod MR, trace TR. BLADIMIR (EF 55-60%, mild LVH, mild LAE, mod-severe with planimetry at 1.0 cm2, turbulent flow suggests severe , mild-mod MR, mild TR.) - 12/26/2018 Echo (EF 55-60%, mild LVH, grade I diastolic dysfunction (E?E' 20), mild LAE, severe calcification of AV, severe (valve 0.8 cm2), trace AI/TR, mild MR, mod MAC, RVSP 43 mmHg.) - 12/07/2018 Electrophysiology:: 06/22/19 EKG: Sinus rhythm, nonspecific ST-T wave in inf/lat leads. EKG (Sinus rhythm with borderline ST-T wave in lateral leads.) - 11/17/2018 Stress Tests:: 06/23/19 CXR: Mild pulm edema. MPI (Lexiscan myoview: Partial reversible ischemia of basilar inferior segment and equivocal small ischemia of mid-basilar inferolateral segments.) - 12/07/2018 Reason For Visit: CHF hypoxia/elevated troponin/chronic renal diseas Review of Systems Review of Systems: All systems reviewed & are unremarkable except as noted in HPI and below Constitutional: Constitutional: Reports as per HPI, Denies chills and Denies fatigue Cardiovascular: Cardiovascular: Reports as per HPI, Denies chest pain, Reports leg edema and Denies lightheadedness Respiratory: Respiratory: Reports as per HPI and Reports dyspnea Gastrointestinal: Gastrointestinal: Reports as per HPI and Denies abdominal pain Genitourinary: Genitourinary: Reports as per HPI and Denies dysuria Musculoskeletal: Musculoskeletal: Reports as per HPI Neurologic: Reports as per HPI, Denies dizziness and Denies syncope [facility] Past Medical History Medical History Abdominal aortic aneurysm Infrarenal abdominal aortic aneurysm measuring 3.4 cm on imaging in June 22
--- NOTE | 2020-02-06 14:20 | CONS_ITS ---
This consult report was cancelled in error on February 08, 2020 and reinstated on February 09, 2020. Original report was signed by Dr. Luke Corado on February 06, 2020 at 1420. Assessment and Plan Assessment and plan (1) Chronic progressive renal failure, stage 4 (severe): Code(s): N18.4 - Chronic kidney disease, stage 4 (severe) Status: Acute Assessment and Plan: Continue to monitor kidney function and electrolytes as he diuresis. He sees Dr. Perez [facility] nephrology. (2) Hypertension: Code(s): I10 - Essential (primary) hypertension Status: Acute Assessment and Plan: Mildly high. Monitor as he diuresis. (3) Diastolic heart failure: Code(s): I50.30 - Unspecified diastolic (congestive) heart failure Status: Acute Assessment and Plan: Grade III diastolic heart failure that is acute on chronic with mild chronic systolic heart failure with EF 45-50%. Continue with Lasix 40 mg IV BID. (4) Aortic stenosis: Code(s): I35.0 - Nonrheumatic aortic (valve) stenosis Status: Acute Assessment and Plan: Mod-severe. (5) HLD (hyperlipidemia): Code(s): E78.5 - Hyperlipidemia, unspecified Status: Acute History of Present Illness History of Present Illness Consult date/time: 02/06/20 14:12 Reason for consult: CHF. Patient is a 84 yr old man who is my regular cardiology patient who presents to ER for sob. He has a history of mod-severe , CKD stage IV, diastolic heart failure, DM, hypertension, abnormal nuclear stress test but asymptomatic. Presents with his daughter. States that they noticed swelling of legs and he had sob this morning. He felt out of it this morning and shaky. After he took his medications his sob resolved. His dry weight at home is about 219 pounds but in the last week his weight went up to 227 pounds. Currently no longer sob after given Lasix 40 mg IV in ER. No apparent edema of legs currently. He is wearing compression stockings. He was hospitalized with diastolic heart failure on 12/12/19. Reports when lying back he does cough. Denies chest pain, PND. Reports he has balance issues and weakness and is limited at walking a few steps with a walker. Admits to PRYOR walking minimal distance also in his house, but is more limited by instability. Cardiovascular Procedures Echo/MUGA:: 12/13/19 Echo: EF 45-50%, mild LVE, mod LVH, grade III diastolic dysfunction (E/e' 24), mild LAE, mod-severe (1.0 cm2), mod MR, trace TR. BLADIMIR (EF 55-60%, mild LVH, mild LAE, mod-severe with planimetry at 1.0 cm2, turbulent flow suggests severe , mild-mod MR, mild TR.) - 12/26/2018 Echo (EF 55-60%, mild LVH, grade I diastolic dysfunction (E?E' 20), mild LAE, severe calcification of AV, severe (valve 0.8 cm2), trace AI/TR, mild MR, mod MAC, RVSP 43 mmHg.) - 12/07/2018 Electrophysiology:: 06/22/19 EKG: Sinus rhythm, nonspecific ST-T wave in inf/lat leads. EKG (Sinus rhythm with borderline ST-T wave in lateral leads.) - 11/17/2018 Stress Tests:: 06/23/19 CXR: Mild pulm edema. MPI (Lexiscan myoview: Partial reversible ischemia of basilar inferior segment and equivocal small ischemia of mid-basilar inferolateral segments.) - 12/07/2018 Reason For Visit: CHF hypoxia/elevated troponin/chronic renal diseas Review of Systems Review of Systems: All systems reviewed & are unremarkable except as noted in HPI and below Constitutional: Constitutional: Reports as per HPI, Denies chills and Denies fatigue Cardiovascular: Cardiovascular: Reports as per HPI, Denies chest pain, Reports leg edema and Denies lightheadedness Respiratory: Respiratory: Reports as per HPI and Reports dyspnea Gastrointestinal: Gastrointestinal: Reports as per HPI and Denies abdominal pain Genitourinary: Genitourin
--- NOTE | 2020-02-06 14:45 | PM.IMHP ---
H&P: HPI History of Present Illness Date/Time: 02/06/20 14:45 Chief complaint: Shortness of breath. Narrative: Dell Leon Sr. is a very pleasant 84-year-old male with combined congestive heart failure with mildly reduced systolic function and grade 3 diastolic dysfunction by most recent echocardiogram, moderate to severe aortic stenosis, chronic kidney disease stage IV, chronic anemia, type 2 diabetes, and hypertension who presented to the emergency department earlier this today via EMS from home for evaluation of shortness of breath. He is diligent about weighing himself daily and follows a low-sodium diet, but over the last several days he has noticed increasing lower extremity edema as well as nearly 10 lb weight gain. Additionally he has had increasing short of breath from his baseline chronic dyspnea. Today he was extremely short of breath, and on EMS arrival his SpO2 was reportedly 76% on room air. At the time my evaluation he is sitting at the side of the bed eating a snack and reports feeling much better, as he has been diuresing quite a bit since arrival. He states compliance with his home medication and diet as detailed above. He has not noticed a decrease in urine output, and fact reports an increase in urine output. On occasion he does feel as though his bladder does not fully empty her, however. He denies abdominal distension. No chest pain, pleuritic pain, or resting shortness of breath. He also denies nausea, vomiting, and sweats. Review of Systems Review of Systems: Narrative: Twelve systems were reviewed with pertinent positives and negatives as per HPI. He denies cold and flu symptoms. No recent travel or sick contacts. No exposure to those positive for COVID-19. He denies dysphagia and concerns for aspiration however dysphagia has previously been documented in his electronic medical records. Except as documented, all other systems were reviewed and are negative. [facility] Past Medical History Medical History (Updated 02/06/20 @ 21:18 by Tianna Spain PA-C) Abdominal aortic aneurysm Infrarenal abdominal aortic aneurysm measuring 3.4 cm on imaging in June 2019. Aortic stenosis (~12/2019) Severe aortic valve sclerosis with moderate to severe aortic valve stenosis with a peak velocity of 309 cm/s, mean gradient of 18 mmHg, and aortic valve area of 1.0 cm2. Arthritis Benign prostatic hyperplasia Bilateral inguinal hernia Bilateral fat containing inguinal hernias noted on CT in 02/2019. Chronic anemia Chronic progressive renal failure, stage 4 (severe) Creatinine varies, ranging between 1.9 and 2.50. Cognitive impairment Combined systolic and diastolic congestive heart failure (~12/2019) Mildly reduced LV systolic function, estimated at 45-50% with grade 3 diastolic dysfunction. Depression Gastritis Noted on EGD June 2019. Gastroesophageal reflux Hyperlipidemia Hypertension Psoriasis Previously on methotrexate, which was recently stopped due to oral ulcers. Type 2 diabetes mellitus with peripheral neuropathy Hemoglobin A1c was 5.6% on 06/23/2019. Vitamin D deficiency Surgical History Surgical History History of cataract extraction History of colon resection For benign tumor. History of tonsillectomy Family History Family History Sibling Patient's sister is in good health Family history unknown Father Family history unknown Mother Family history unknown Other Unknown family medical history Social History Social History Social History: The patient is and lives in [place] with his daughter. He is originally from [place], [place]. He was in the [employer] as a young man. 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 He smoked for about 45 years, and quit 20 years ago. He has not had al
[2020-02-06 16:36] LABS: Troponin I 0.234 ng/mL (0.000-0.034)
[2020-02-06] MEDS: TAMSULOSIN HCL 0.4 MG CAPSULE PO (22:08)
[2020-02-06] MEDS: VITAMIN B COMPLEX CAPSULE 1 CAP PO (22:09)
[2020-02-06] MEDS: GABAPENTIN 300 MG CAPSULE 600 MG PO (22:09)
[2020-02-06] MEDS: DOCUSATE SODIUM 100 MG CAPSULE PO (22:09)
[2020-02-06] MEDS: carvediloL 25 MG TABLET PO (22:09)
[2020-02-06] MEDS: hydrALAZINE HCL 50 MG TABLET PO (22:09)
[2020-02-07] VITALS (22 sets, daily range): BP systolic 125–158; BP diastolic 50–67; PULSE 64–78; RESP 18–20; TEMP 36.2–36.9; O2SAT 94–98
[2020-02-07 04:46] LABS: Hematocrit 30.8 % (42.0-52.0); Mean Corpuscular HGB Conc 32.5 g/dl (32-36); Mean Corpuscular Hemoglobin 33.1 pg (26-34); Mean Platelet Volume 10.9 fl (7.4-10.4); Platelet Count Result 121 k/mm3 (150-375); Red Blood Count 3.02 M/mm3 (4.6-6.20); Red Cell Distribution Width 15.4 % (11.5-14.5); White Blood Count 6.1 K/mm3 (4.5-10.0)
[2020-02-07 05:12] LABS: Alanine Aminotransferase 7 U/L (4-50); Albumin Level 3.2 g/dL (3.5-5.1); Alkaline Phosphatase 40 U/L (38-126); Anion Gap 5 mmol/L (8-16); Aspartate Amino Transferase 19 U/L (17-59); Bilirubin,Total 0.5 mg/dL (0.2-1.3); Blood Urea Nitrogen 67 mg/dL (9-20); Calcium 8.6 mg/dL (8.4-10.2); Carbon Dioxide 30 mmol/L (22-30); Chloride 102 mmol/L (98-107); Estimated CRCL calculation 18 ml/min; Estimated Glomerular Filt Rate 18; Glucose 115 mg/dL (75-110); Magnesium 2.7 mg/dL (1.6-2.3); Potassium 4.4 mmol/L (3.4-5.0); Sodium 137 mmol/L (137-145)
[2020-02-07] MEDS: hydrALAZINE HCL 50 MG TABLET PO ×3 (05:30→21:14)
[2020-02-07] MEDS: GABAPENTIN 300 MG CAPSULE 600 MG PO ×3 (05:30→21:14)
[2020-02-07 06:28] LABS: Free T4 Free Thyroxine Reflex 0.79 ng/dL (0.78-2.19)
[2020-02-07 07:17] LABS: Total Triiodothyronine (T3) 0.62 NG/ML (0.97-1.69)
--- NOTE | 2020-02-07 08:02 | PM.PNCARD ---
Progress Note: A&P Assessment and Plan (1) Chronic progressive renal failure, stage 4 (severe): Code(s): N18.4 - Chronic kidney disease, stage 4 (severe) Status: Acute Assessment and Plan: Continue to monitor kidney function and electrolytes as he diuresis. He sees Dr. Perez [facility] nephrology. (2) Hypertension: Code(s): I10 - Essential (primary) hypertension Status: Acute Assessment and Plan: Mildly high. Monitor as he diuresis. (3) Diastolic heart failure: Code(s): I50.30 - Unspecified diastolic (congestive) heart failure Status: Acute Assessment and Plan: Grade III diastolic heart failure that is acute on chronic with mild chronic systolic heart failure with EF 45-50%. Change Lasix 40 mg PO BID. May need urology evaluation for problems with bladder emptying. (4) Aortic stenosis: Onset Date: ~12/2019 Code(s): I35.0 - Nonrheumatic aortic (valve) stenosis Status: Acute Assessment and Plan: Mod-severe. (5) HLD (hyperlipidemia): Code(s): E78.5 - Hyperlipidemia, unspecified Status: Acute (6) Elevated troponin: Code(s): R77.8 - Other specified abnormalities of plasma proteins Status: Acute Assessment and Plan: Doubt ACS. Probably related to acute heart failure in setting of CKD. Subjective Date/time seen: 02/07/20 08:02 No sob since admission yesterday. No chest pains. He reports having problems with emptying his bladder as he is sitting at edge of bed and attempting to urinate for at least 5-10 minutes. Exam Const: General: cooperative, healthy appearing and comfortable Orientation/consciousness: oriented to person, oriented to place and oriented to time Resp: Auscultation: no crackles, no rales, no rhonchi, no wheezes and diminished lung sounds Cardio: Jugular venous distension: no JVD Rate: regular rate Rhythm: regular rhythm Heart sounds: Murmur heart sound present (II/ systolic murmur RICS) Peripheral pulses: dorsalis pedis present Neuro: General: oriented to person, oriented to place and oriented to time Extrem: Right lower extremity: no edema Left lower extremity: no edema Objective Data Vital Signs Vital Signs: Vital Signs - 24 hr 02/06/20 08:49 02/06/20 08:54 02/06/20 09:11 Temperature 97.8 F Pulse Rate 69 68 68 Respiratory Rate 18 18 Blood Pressure 162/78 H 162/78 H Pulse Oximetry 76 L 100 02/06/20 09:12 02/06/20 09:14 02/06/20 09:15 Temperature Pulse Rate 68 Respiratory Rate 20 Blood Pressure Pulse Oximetry 97 98 98 02/06/20 09:30 02/06/20 09:58 02/06/20 10:00 Temperature Pulse Rate 69 68 67 Respiratory Rate 16 16 16 Blood Pressure 142/82 H 142/82 H Pulse Oximetry 98 98 97 02/06/20 10:30 02/06/20 11:32 02/06/20 12:54 Temperature 98.0 F Pulse Rate 64 68 64 Respiratory Rate 16 18 19 Blood Pressure 154/67 H 149/67 H 152/73 H Pulse Oximetry 96 94 97 02/06/20 13:04 02/06/20 13:49 02/06/20 14:30 Temperature 98.1 F 97.9 F Pulse Rate 64 64 60 Respiratory Rate 18 20 Blood Pressure 152/73 H 140/73 Pulse Oximetry 97 100 96 02/06/20 16:00 02/06/20 18:00 02/06/20 19:42 Temperature 97.9 F 96.7 F L Pulse Rate 59 L 65 66 Respiratory Rate 18 18 Blood Pressure 139/62 96/77 L Pulse Oximetry 96 97 02/06/20 20:00 02/06/20 22:00 02/06/20 22:09 Temperature Pulse Rate 63 67 67 Respiratory Rate Blood Pressure Pulse Oximetry 97 02/06/20 23:46 02/07/20 00:00 02/07/20 02:00 Temperature 96.7 F L Pulse Rate 65 67 64 Respiratory Rate 18 Blood Pressure 133/59 L Pulse Oximetry 95 95 02/07/20 03:49 02/07/20 03:50 02/07/20 04:00 Temperature 97.1 F L Pulse Rate 66 66 Respiratory Rate 18 Blood Pressure 134/63 Pulse Oximetry 94 95 02/07/20 06:00 Temperature Pulse Rate 65 Respiratory Rate Blood Pressure Pulse Oximetry Intake/Output Intake/Output: Intake & Output 02/04/2002/04
[2020-02-07 08:27] LABS: Glucose Point of Care 110 (65-105)
[2020-02-07] MEDS: amLODIPine BESYLATE 5 MG TABLET PO (08:46)
[2020-02-07] MEDS: ASPIRIN 81 MG ENTERIC TABLET PO (08:46)
[2020-02-07] MEDS: THERAPEUTIC MULTIVITAMINS/MINERALS TAB (*BKC) 1 TABLET PO (08:47)
[2020-02-07] MEDS: PANTOPRAZOLE 40 MG TABLET PO (08:47)
[2020-02-07] MEDS: DOCUSATE SODIUM 100 MG CAPSULE PO ×2 (08:48→20:50)
[2020-02-07] MEDS: LORATADINE 10 MG TABLET PO (08:48)
[2020-02-07] MEDS: FINASTERIDE 5 MG TABLET PO (08:48)
[2020-02-07] MEDS: carvediloL 25 MG TABLET PO ×2 (08:48→20:51)
[2020-02-07] MEDS: ATORVASTATIN 10 MG TABLET PO (08:49)
[2020-02-07] MEDS: FUROSEMIDE 40 MG TABLET PO ×2 (09:08→17:43)
[2020-02-07 11:57] LABS: Glucose Point of Care 203 (65-105)
[2020-02-07] MEDS: INSULIN ASPART (*BKC) 100 UNITS/ML SUB-Q (12:13)
--- NOTE | 2020-02-07 16:13 | PM.IMPN ---
Progress Note: A&P Assessment and Plan (1) Acute respiratory failure with hypoxia: Code(s): J96.01 - Acute respiratory failure with hypoxia Status: Acute Assessment and Plan: secondary to high congestive heart failure. Continue beta-félix and diurese IV as renal status will allow (2) Acute exacerbation of congestive heart failure: Code(s): I50.9 - Heart failure, unspecified Status: Acute Assessment and Plan: echo 12/23 revealed ejection fraction of 35% with diastolic dysfunction and moderate to severe with moderate MR continue beta-félix hydralazine and diuretic (3) Chronic progressive renal failure, stage 4 (severe): Code(s): N18.4 - Chronic kidney disease, stage 4 (severe) Status: Acute Assessment and Plan: creatinine 3.3 today. Renal sonogram showed no hydro but distended bladder so will do bladder scan and possible straight cath (4) Aortic stenosis: Onset Date: ~12/2019 Code(s): I35.0 - Nonrheumatic aortic (valve) stenosis Status: Acute Assessment and Plan: moderate to severe with 1 cm2 area on most recent echo (5) Chronic anemia: Code(s): D64.9 - Anemia, unspecified Status: Acute Assessment and Plan: chronic disease unchanged (6) Hypertension: Code(s): I10 - Essential (primary) hypertension Status: Acute Assessment and Plan: continue hydralazine, diuretic, and beta-félix (7) Type 2 diabetes mellitus with peripheral neuropathy: Code(s): E11.42 - Type 2 diabetes mellitus with diabetic polyneuropathy Status: Acute Assessment and Plan: sliding scale (8) Benign prostatic hyperplasia: Code(s): N40.0 - Benign prostatic hyperplasia without lower urinary tract symptoms Status: Acute Assessment and Plan: left continue finasteride and tamsulosin and do bladder scan (9) DVT prophylaxis: Code(s): Z29.9 - Encounter for prophylactic measures, unspecified Status: Acute Assessment and Plan: heparin subcu with stage IV renal failure Subjective Date/time seen: 02/07/20 16:13 Interval history: Date of visit 02/06. 84 year known aortic and mitral disease and systolic and diastolic heart failure admitted with increasing shortness breath and edema. After IV diuresis feels slightly better. No chest pain or palpitation. Exam Narrative: Exam Narrative: Blood pressure 158/50 pulse 66 saturating 98% on 2 L cannula General: Well-developed elderly male lying comfortably semi-erect in bed. HEENT: Wearing glasses. PERRL, Sclerae anicteric. Neck: Supple. No significant JVD. Respiratory: Respirations are even and nonlabored. Diminished at the bases. Cardiovascular: Regular rate and rhythm with S1-S2. II-III/ best heard at the right upper sternal border. Gastrointestinal: Abdomen is soft, nontender, and nondistended with positive bowel sounds. Skin: Warm and dry. Extremities: He is wearing compression stockings but is definitely has edema of the lower legs. Radial and pedal pulses intact. Neurological: Alert. no gross focal deficit Psychiatric: Pleasant and cooperative. Appropriate mood. Objective Data Vital Signs Vital Signs: Vital Signs - 24 hr 02/06/20 18:00 02/06/20 19:42 02/06/20 20:00 Temperature 35.9 C L Pulse Rate 65 66 63 Respiratory Rate 18 Blood Pressure 96/77 L Pulse Oximetry 97 97 02/06/20 22:00 02/06/20 22:09 02/06/20 23:46 Temperature 35.9 C L Pulse Rate 67 67 65 Respiratory Rate 18 Blood Pressure 133/59 L Pulse Oximetry 95 02/07/20 00:00 02/07/20 02:00 02/07/20 03:49 Temperature 36.2 C L Pulse Rate 67 64 66 Respiratory Rate 18 Blood Pressure 134/63 Pulse Oximetry 95 94 02/07/20 03:50 02/07/20 04:00 02/07/20 06:00 Temperature Pulse Rate 66 65 Respiratory Rate Blood Pressure Pulse Oximetry 95 02/07/20 08:00 02/07/20 08:30
[2020-02-07 16:25] LABS: Glucose Point of Care 159 (65-105)
[2020-02-07] MEDS: HEPARIN SODIUM 5,000 UNITS/ML VIAL 5000 UNITS SUB-Q (20:52)
[2020-02-07] MEDS: VITAMIN B COMPLEX CAPSULE 1 CAP PO (20:52)
[2020-02-07] MEDS: TAMSULOSIN HCL 0.4 MG CAPSULE PO (20:52)
[2020-02-07 21:10] LABS: Glucose Point of Care 120 (65-105)
[2020-02-08] VITALS (17 sets, daily range): BP systolic 122–152; BP diastolic 50–66; PULSE 61–80; RESP 16–22; TEMP 36.2–36.7; O2SAT 90–96
[2020-02-08 05:20] LABS: Estimated CRCL calculation 18 ml/min; Estimated Glomerular Filt Rate 18
[2020-02-08 05:22] LABS: Anion Gap 8 mmol/L (8-16); Blood Urea Nitrogen 72 mg/dL (9-20); Calcium 8.3 mg/dL (8.4-10.2); Carbon Dioxide 27 mmol/L (22-30); Chloride 100 mmol/L (98-107); Glucose 105 mg/dL (75-110); Potassium 4.1 mmol/L (3.4-5.0); Sodium 135 mmol/L (137-145)
[2020-02-08] MEDS: GABAPENTIN 300 MG CAPSULE 600 MG PO ×3 (06:17→20:20)
[2020-02-08] MEDS: hydrALAZINE HCL 50 MG TABLET PO ×3 (06:17→20:20)
[2020-02-08 08:22] LABS: Glucose Point of Care 99 (65-105)
[2020-02-08] MEDS: ASPIRIN 81 MG ENTERIC TABLET PO (08:50)
[2020-02-08] MEDS: ATORVASTATIN 10 MG TABLET PO (08:50)
[2020-02-08] MEDS: LORATADINE 10 MG TABLET PO (08:50)
[2020-02-08] MEDS: FUROSEMIDE 40 MG TABLET PO ×2 (08:50→16:08)
[2020-02-08] MEDS: amLODIPine BESYLATE 5 MG TABLET PO (08:50)
[2020-02-08] MEDS: THERAPEUTIC MULTIVITAMINS/MINERALS TAB (*BKC) 1 TABLET PO (08:50)
[2020-02-08] MEDS: FINASTERIDE 5 MG TABLET PO (08:50)
[2020-02-08] MEDS: PANTOPRAZOLE 40 MG TABLET PO (08:51)
[2020-02-08] MEDS: carvediloL 25 MG TABLET PO ×2 (08:51→20:20)
[2020-02-08] MEDS: HEPARIN SODIUM 5,000 UNITS/ML VIAL 5000 UNITS SUB-Q ×2 (08:51→20:20)
[2020-02-08] MEDS: DOCUSATE SODIUM 100 MG CAPSULE PO ×2 (08:51→20:20)
--- NOTE | 2020-02-08 09:11 | PM.CNCAR ---
Assessment and Plan Assessment and plan (1) Chronic progressive renal failure, stage 4 (severe): Code(s): N18.4 - Chronic kidney disease, stage 4 (severe) Status: Acute Assessment and Plan: Continue to monitor kidney function and electrolytes as he diuresis. He sees Dr. Perez [facility] nephrology. (2) Hypertension: Code(s): I10 - Essential (primary) hypertension Status: Acute Assessment and Plan: Mildly high. Monitor as he diuresis. (3) Diastolic heart failure: Code(s): I50.30 - Unspecified diastolic (congestive) heart failure Status: Acute Assessment and Plan: Grade III diastolic heart failure that is acute on chronic with mild chronic systolic heart failure with EF 45-50%. Continue with Lasix 40 mg PO BID. Needs to wear compression stockings during the day for edema of legs. Issues with urinary retention probably from BPH and has geiger in place. If he gets discharged home, f/u with me in 1 week. (4) Aortic stenosis: Onset Date: ~12/2019 Code(s): I35.0 - Nonrheumatic aortic (valve) stenosis Status: Acute Assessment and Plan: Mod-severe. (5) HLD (hyperlipidemia): Code(s): E78.5 - Hyperlipidemia, unspecified Status: Acute History of Present Illness History of Present Illness Consult date/time: 02/08/20 09:11 Denies chest pain or sob. Has geiger catheter in place. Reason For Visit: Shortness of breath. [facility] Past Medical History Medical History (Updated 02/07/20 @ 16:29 by Ian Agrawal MD) Abdominal aortic aneurysm Infrarenal abdominal aortic aneurysm measuring 3.4 cm on imaging in June 2019. Aortic stenosis (~12/2019) Severe aortic valve sclerosis with moderate to severe aortic valve stenosis with a peak velocity of 309 cm/s, mean gradient of 18 mmHg, and aortic valve area of 1.0 cm2. Arthritis Benign prostatic hyperplasia Bilateral inguinal hernia Bilateral fat containing inguinal hernias noted on CT in 02/2019. Chronic anemia Chronic progressive renal failure, stage 4 (severe) Creatinine varies, ranging between 1.9 and 2.50. Cognitive impairment Combined systolic and diastolic congestive heart failure (~12/2019) Mildly reduced LV systolic function, estimated at 45-50% with grade 3 diastolic dysfunction. Depression Gastritis Noted on EGD June 2019. Gastroesophageal reflux Hyperlipidemia Hypertension Psoriasis Previously on methotrexate, which was recently stopped due to oral ulcers. Type 2 diabetes mellitus with peripheral neuropathy Hemoglobin A1c was 5.6% on 06/23/2019. Vitamin D deficiency Surgical History Surgical History History of cataract extraction History of colon resection For benign tumor. History of tonsillectomy Family History Family History Sibling Patient's sister is in good health Family history unknown Father Family history unknown Mother Family history unknown Other Unknown family medical history Social History Social History Social History: The patient is and lives in [place] with his daughter. He is originally from [place], [place]. He was in the [employer] as a young man. 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 He smoked for about 45 years, and quit 20 years ago. He has not had alcohol in about 20 years. No illicit substance use. He designates his daughter, Tarah, as his surrogate decision maker and he wishes to be a full code. Smoking status: Former smoker Alcohol intake: never Substance use: never Gender identity (if verbalized by the patient): Male Spiritual care concerns: No Agree to blood products: Yes Meds Home Medications and Allergies Home Medications Medication Instructions Recorded Confirmed Type aspirin [Aspir
--- NOTE | 2020-02-08 09:14 | PN_ITS ---
This report type was updated to Progress Note on February 08, 2020. Original report was signed by Dr. Corado on February 08, 2020 at 0914. Assessment and Plan Assessment and plan (1) Chronic progressive renal failure, stage 4 (severe): Code(s): N18.4 - Chronic kidney disease, stage 4 (severe) Status: Acute Assessment and Plan: Continue to monitor kidney function and electrolytes as he diuresis. He sees Dr. Perez [facility] nephrology. (2) Hypertension: Code(s): I10 - Essential (primary) hypertension Status: Acute Assessment and Plan: Mildly high. Monitor as he diuresis. (3) Diastolic heart failure: Code(s): I50.30 - Unspecified diastolic (congestive) heart failure Status: Acute Assessment and Plan: Grade III diastolic heart failure that is acute on chronic with mild chronic systolic heart failure with EF 45-50%. Continue with Lasix 40 mg PO BID. Needs to wear compression stockings during the day for edema of legs. Issues with urinary retention probably from BPH and has geiger in place. If he gets discharged home, f/u with me in 1 week. (4) Aortic stenosis: Onset Date: ~12/2019 Code(s): I35.0 - Nonrheumatic aortic (valve) stenosis Status: Acute Assessment and Plan: Mod-severe. (5) HLD (hyperlipidemia): Code(s): E78.5 - Hyperlipidemia, unspecified Status: Acute History of Present Illness History of Present Illness Consult date/time: 02/08/20 09:11 Denies chest pain or sob. Has geiger catheter in place. Reason For Visit: Shortness of breath. [facility] Past Medical History Medical History (Updated 02/07/20 @ 16:29 by Ian Agrawal MD) Abdominal aortic aneurysm Infrarenal abdominal aortic aneurysm measuring 3.4 cm on imaging in June 2019. Aortic stenosis (~12/2019) Severe aortic valve sclerosis with moderate to severe aortic valve stenosis with a peak velocity of 309 cm/s, mean gradient of 18 mmHg, and aortic valve area of 1.0 cm2. Arthritis Benign prostatic hyperplasia Bilateral inguinal hernia Bilateral fat containing inguinal hernias noted on CT in 02/2019. Chronic anemia Chronic progressive renal failure, stage 4 (severe) Creatinine varies, ranging between 1.9 and 2.50. Cognitive impairment Combined systolic and diastolic congestive heart failure (~12/2019) Mildly reduced LV systolic function, estimated at 45-50% with grade 3 diastolic dysfunction. Depression Gastritis Noted on EGD June 2019. Gastroesophageal reflux Hyperlipidemia Hypertension Psoriasis Previously on methotrexate, which was recently stopped due to oral ulcers. Type 2 diabetes mellitus with peripheral neuropathy Hemoglobin A1c was 5.6% on 06/23/2019. Vitamin D deficiency Surgical History Surgical History History of cataract extraction History of colon resection For benign tumor. History of tonsillectomy Family History Family History Sibling Patient's sister is in good health Family history unknown Father Family history unknown Mother Family history unknown Other Unknown family medical history Social History Social History Social History: The patient is and lives in [place] with his daughter. He is originally from [place], [place]. He was in the [employer] as a young man. 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 He smoked for about 45 years, and quit 20 years ago. He has not had alcohol in about 20 years. No illicit substance use. He designates his daughter, Tarah,
--- NOTE | 2020-02-08 11:36 | PHAR ---
Drug Name: Vaishnavi Ingredients: Linagliptin -- 5 MG Related Documents: DRUGDEX Evaluations - LINAGLIPTIN Color: Light Red Shape: [place] Imprint: LOGO , D5 Form: Oral Tablet
--- NOTE | 2020-02-08 11:39 | PHAR ---
Drug Name: Vaishnavi Ingredients: Linagliptin -- 5 MG Related Documents: DRUGDEX Evaluations - LINAGLIPTIN Color: Light Red Shape: [place] Imprint: LOGO , D5 Form: Oral Tablet
[2020-02-08 12:18] LABS: Glucose Point of Care 138 (65-105)
--- NOTE | 2020-02-08 14:23 | PM.IMPN ---
Progress Note: A&P Assessment and Plan (1) Acute respiratory failure with hypoxia: Code(s): J96.01 - Acute respiratory failure with hypoxia Status: Acute Assessment and Plan: secondary to congestive heart failure. Continue beta-félix and diurese as renal status will allow still hypoxic on RA (2) Acute exacerbation of congestive heart failure: Code(s): I50.9 - Heart failure, unspecified Status: Acute Assessment and Plan: echo 12/23 revealed ejection fraction of 35% with diastolic dysfunction and moderate to severe with moderate MR continue beta-félix hydralazine and diuretic (3) Chronic progressive renal failure, stage 4 (severe): Code(s): N18.4 - Chronic kidney disease, stage 4 (severe) Status: Acute Assessment and Plan: creatinine 3.3 again today. Renal sonogram showed no hydro but distended bladder and over 600 ml residual so cath left in . May be some component of obstructive uropathy too (4) Aortic stenosis: Onset Date: ~12/2019 Code(s): I35.0 - Nonrheumatic aortic (valve) stenosis Status: Acute Assessment and Plan: moderate to severe with 1 cm2 area on most recent echo (5) Chronic anemia: Code(s): D64.9 - Anemia, unspecified Status: Acute Assessment and Plan: chronic disease unchanged (6) Hypertension: Code(s): I10 - Essential (primary) hypertension Status: Acute Assessment and Plan: continue hydralazine, diuretic, and beta-félix (7) Type 2 diabetes mellitus with peripheral neuropathy: Code(s): E11.42 - Type 2 diabetes mellitus with diabetic polyneuropathy Status: Acute Assessment and Plan: sliding scale recent A1c< 6 and fbs low 100s (8) Benign prostatic hyperplasia: Code(s): N40.0 - Benign prostatic hyperplasia without lower urinary tract symptoms Status: Acute Assessment and Plan: left continue finasteride and tamsulosin and geiger now. will need follow up with urologist for voiding trial (9) DVT prophylaxis: Code(s): Z29.9 - Encounter for prophylactic measures, unspecified Status: Acute Assessment and Plan: heparin subcu with stage IV renal failure Subjective Date/time seen: 02/08/20 14:23 Interval history: Date of visit 02/07. 84 year known aortic and mitral disease and systolic and diastolic heart failure admitted with increasing shortness breath and edema. After IV diuresis feels slightly better. No chest pain or palpitation. now on po lasix. urine retension and geiger placed pm 11 with >600ml residual Exam Narrative: Exam Narrative: Blood pressure 122/80 pulse 62 saturating 96% on 2 L cannula General: Well-developed elderly male lying comfortably semi-erect in bed. HEENT: Wearing glasses. PERRL, Sclerae anicteric. Neck: Supple. No significant JVD. Respiratory: Respirations are even and nonlabored. Diminished at the bases but no rales heard. Cardiovascular: Regular rate and rhythm with S1-S2. II-III/ best heard at the right upper sternal border. Gastrointestinal: Abdomen is soft, nontender, and nondistended with positive bowel sounds. Skin: Warm and dry. Extremities: minimal edema now Radial and pedal pulses intact. Neurological: Alert. no gross focal deficit Psychiatric: Pleasant and cooperative. Appropriate mood. Objective Data Vital Signs Vital Signs: Vital Signs - 24 hr 02/07/20 16:00 02/07/20 16:30 02/07/20 18:00 Temperature 36.7 C Pulse Rate 73 73 69 Respiratory Rate 18 Blood Pressure 125/50 L Pulse Oximetry 96 98 02/07/20 18:55 02/07/20 20:50 02/07/20 20:51 Temperature 36.9 C Pulse Rate 78 74 74 Respiratory Rate 18 20 Blood Pressure 141/64 H Pulse Oximetry 95 95 02/07/20 22:00 02/08/20 00:00 02/08/20 02:00 Temperature 36.5 C Pulse Rate 70 68 77 Respiratory Rate 18 Blood Pressure 148/66 H Pulse Oximetry 94 02/08/20 0
[2020-02-08 16:09] LABS: Glucose Point of Care 123 (65-105)
--- NOTE | 2020-02-08 18:32 | PC.NURSE ---
This patient, Dell Leon ., was transferred to [ [address] [place] [address] ] on 02/08/20 at 1832. Personal belongings sent with patient, bag clothes, phone. Report given to [ rosemary de guzman]. Appropriate documentation sent with patient.
--- NOTE | 2020-02-08 18:42 | PC.NURSE ---
1835- Patient received from IMU. Patient oriented to the room.
[2020-02-08 20:07] LABS: Glucose Point of Care 170 (65-105)
[2020-02-08] MEDS: TAMSULOSIN HCL 0.4 MG CAPSULE PO (20:20)
[2020-02-08] MEDS: VITAMIN B COMPLEX CAPSULE 1 CAP PO (20:20)
[2020-02-09] VITALS (15 sets, daily range): BP systolic 142–160; BP diastolic 58–87; PULSE 66–80; RESP 15–23; TEMP 36.3–37.4; O2SAT 84–96
[2020-02-09 05:56] LABS: Albumin Level 3.4 g/dL (3.5-5.1); Anion Gap 10 mmol/L (8-16); Blood Urea Nitrogen 69 mg/dL (9-20); Calcium 8.4 mg/dL (8.4-10.2); Carbon Dioxide 27 mmol/L (22-30); Chloride 100 mmol/L (98-107); Estimated CRCL calculation 18 ml/min; Estimated Glomerular Filt Rate 18; Glucose 114 mg/dL (75-110); Phosphorus 4.7 mg/dL (2.5-4.5); Potassium 3.9 mmol/L (3.4-5.0); Sodium 137 mmol/L (137-145)
[2020-02-09] MEDS: hydrALAZINE HCL 50 MG TABLET PO ×3 (05:59→21:27)
[2020-02-09] MEDS: GABAPENTIN 300 MG CAPSULE 600 MG PO ×3 (05:59→21:25)
--- NOTE | 2020-02-09 08:06 | PM.PNCARD ---
Progress Note: A&P Assessment and Plan (1) Chronic progressive renal failure, stage 4 (severe): Code(s): N18.4 - Chronic kidney disease, stage 4 (severe) Status: Acute Assessment and Plan: Continue to monitor kidney function and electrolytes as he diuresis. He sees Dr. Perez [facility] nephrology. (2) Hypertension: Code(s): I10 - Essential (primary) hypertension Status: Acute Assessment and Plan: Mildly high. Monitor as he diuresis. (3) Diastolic heart failure: Code(s): I50.30 - Unspecified diastolic (congestive) heart failure Status: Acute Assessment and Plan: Grade III diastolic heart failure that is acute on chronic with mild chronic systolic heart failure with EF 45-50%. Continue with Lasix 40 mg PO BID. Needs to wear compression stockings during the day for edema of legs. Issues with urinary retention probably from BPH and has geiger in place. If he gets discharged home, f/u with me in 1 week. (4) Aortic stenosis: Onset Date: ~12/2019 Code(s): I35.0 - Nonrheumatic aortic (valve) stenosis Status: Acute Assessment and Plan: Mod-severe. (5) HLD (hyperlipidemia): Code(s): E78.5 - Hyperlipidemia, unspecified Status: Acute Subjective Date/time seen: 02/09/20 08:06 Denies chest pain or sob. On oxygen NC and has geiger in place. Exam Const: General: cooperative, healthy appearing and comfortable Orientation/consciousness: oriented to person, oriented to place and oriented to time Resp: Auscultation: no crackles, no rales, no rhonchi, no wheezes and diminished lung sounds Cardio: Jugular venous distension: no JVD Rate: regular rate Rhythm: regular rhythm Heart sounds: Murmur heart sound present (III/ systolic murmur RICS) Peripheral pulses: dorsalis pedis present Neuro: General: oriented to person, oriented to place and oriented to time Extrem: Right lower extremity: edema Left lower extremity: edema Other: Trace edema bilateral legs Objective Data Vital Signs Vital Signs: Vital Signs - 24 hr 02/08/20 08:51 02/08/20 10:00 02/08/20 11:43 Temperature Pulse Rate 65 66 Respiratory Rate Blood Pressure Pulse Oximetry 90 02/08/20 12:00 02/08/20 13:37 02/08/20 16:00 Temperature 97.5 F L 97.3 F L Pulse Rate 62 77 61 Respiratory Rate 22 H 18 Blood Pressure 122/50 L 144/65 H Pulse Oximetry 96 94 02/08/20 17:33 02/08/20 18:30 02/08/20 20:00 Temperature 97.1 F L Pulse Rate 67 70 69 Respiratory Rate 16 18 Blood Pressure 138/53 L Pulse Oximetry 91 92 02/08/20 20:20 02/08/20 21:11 02/08/20 22:14 Temperature 98.0 F Pulse Rate 69 80 Respiratory Rate 18 Blood Pressure 152/59 H Pulse Oximetry 92 92 02/09/20 00:00 02/09/20 02:00 02/09/20 04:00 Temperature 98.3 F Pulse Rate 80 71 68 Respiratory Rate 18 Blood Pressure 142/87 H Pulse Oximetry 92 02/09/20 05:42 Temperature 98.7 F Pulse Rate 67 Respiratory Rate 18 Blood Pressure 145/58 H Pulse Oximetry 90 Intake/Output Intake/Output: Intake & Output 02/06/20 02/07/20 02/08/20 02/09/20 23:59 23:59 23:59 23:59 Intake Total 240 1670 940 300 Output Total 752 554 3563 600 Balance -110 720 -610 -300 Meds/Results Medications: Active Medications Generic Name Dose Route Start Last Admin Trade Name Viviane PRN Reason Stop Dose Admin Acetaminophen 650 mg 02/06/20 20:27 Acetaminophen 325 Mg Tablet PO Q12H PRN Pain Amlodipine Besylate 5 mg 02/07/20 09:00 02/08/20 08:50 Amlodipine Besylate 5 Mg Tablet PO 5 mg DAILY TIRSO Administration Aspirin 81 mg 02/07/20 09:00 02/08/20 08:50 Aspirin 81 Mg Enteric Tablet PO 81 mg DAILY TIRSO Administration Atorvastatin Calcium 10 mg 02/07/20 09:00 02/08/20 08:50 Atorvastatin 10 Mg Tablet PO 10 mg DAILY TIRSO Administration Calcium Carbonate 500 mg 02/09/20 08:00 Calcium/Vitamin D 500 Mg Tablet PO DAILY@0800 S
[2020-02-09 08:13] LABS: Glucose Point of Care 113 (65-105)
[2020-02-09] MEDS: ATORVASTATIN 10 MG TABLET PO (08:23)
[2020-02-09] MEDS: amLODIPine BESYLATE 5 MG TABLET PO (08:23)
[2020-02-09] MEDS: ASPIRIN 81 MG ENTERIC TABLET PO (08:23)
[2020-02-09] MEDS: carvediloL 25 MG TABLET PO ×2 (08:23→21:24)
[2020-02-09] MEDS: THERAPEUTIC MULTIVITAMINS/MINERALS TAB (*BKC) 1 TABLET PO (08:24)
[2020-02-09] MEDS: FINASTERIDE 5 MG TABLET PO (08:24)
[2020-02-09] MEDS: PANTOPRAZOLE 40 MG TABLET PO (08:24)
[2020-02-09] MEDS: LORATADINE 10 MG TABLET PO (08:24)
[2020-02-09] MEDS: FUROSEMIDE 40 MG TABLET PO ×2 (08:24→16:38)
[2020-02-09] MEDS: HEPARIN SODIUM 5,000 UNITS/ML VIAL 5000 UNITS SUB-Q ×2 (08:30→21:25)
[2020-02-09] MEDS: DOCUSATE SODIUM 100 MG CAPSULE PO ×2 (09:43→21:25)
[2020-02-09 11:49] LABS: Glucose Point of Care 149 (65-105)
--- NOTE | 2020-02-09 14:44 | PM.CNNEP ---
Assessment and Plan Assessment and plan (1) Chronic progressive renal failure, stage 4 (severe): Code(s): N18.4 - Chronic kidney disease, stage 4 (severe) Status: Acute Assessment and Plan: Dell has chronic kidney disease stage 4. His baseline creatinine runs around 2.5-2.8. Now it is running 3.3. Most likely the chronic kidney disease is from diabetes hypertension and under perfusion from his heart. I will check for other causes such as interstitial nephritis glomerulonephritis and obstruction. Will check serology and immunofixation as well as a renal ultrasound. Because the patient has congestive heart failure by chest x-ray and by exam I think we should continue diuretics. His creatinine may get worse and we may or may not have to do dialysis down the road but hopefully we can get him into a compensated state without making his kidney function to poor. Will continue low sodium diet. Continue diuretics. (2) Acute exacerbation of congestive heart failure: Code(s): I50.9 - Heart failure, unspecified Status: Acute Assessment and Plan: The patient has mildly decreased systolic function, severe to moderate aortic stenosis, and diastolic dysfunction which are all contributing to poor forward flow and probably chronic pre renal azotemia on top of his parenchymal kidney disease. He is getting treated for his heart by Dr. Corado. (3) Hypertension: Code(s): I10 - Essential (primary) hypertension Status: Acute Assessment and Plan: Blood pressure is mildly elevated. This might improve with diuresis. Will keep an eye on this. (4) Type 2 diabetes mellitus with peripheral neuropathy: Code(s): E11.42 - Type 2 diabetes mellitus with diabetic polyneuropathy Status: Acute Assessment and Plan: On Accu-Cheks and sliding-scale insulin (5) Gastritis: Code(s): K29.70 - Gastritis, unspecified, without bleeding Status: Acute Assessment and Plan: he takes pantoprazole at home (6) Anemia: Code(s): D64.9 - Anemia, unspecified Status: Acute Assessment and Plan: hemoglobin is mildly low. This might be due to his chronic kidney disease. Will check stool guaiac and iron is to be sure (7) Vitamin D deficiency: Code(s): E55.9 - Vitamin D deficiency, unspecified Status: Acute Assessment and Plan: the patient takes a vitamin D supplement along with his calcium History of Present Illness Reason for Consult Consult date: 02/09/20 Chief Complaint Chief complaint: Shortness of breath. History of Present Illness Narrative: Dell is a very pleasant gentleman who has multiple medical problems including chronic kidney disease, anemia, arthritis, hypertension, hyperlipidemia, aortic aneurysm, aortic stenosis, congestive heart failure, GERD, psoriasis, diabetes, vitamin-D deficiency, gastritis, arthritis. The patient has chronic kidney disease. This is been going on for old long time. He for saw Dr. Perez in April and then saw him again in July. Because of hospitalizations he was unable to do the complete evaluation for his kidneys. the patient came into the hospital because of shortness of breath. He has been fighting swelling for a long time and has been on diuretics. He was in the hospital in December for shortness of breath as well and was sent home on diuretics. He says that his swelling comes and goes. When he saw Dr. desai in the office lately his swelling was in a good place. So diuretics were not adjusted. However in the last week or so his swelling has gotten gradually better in got more short of breath and so he came to the emergency room. Denies any fevers chills or Cough. The patient denies bloody urine, foamy urine, kidney stones, bladder infections. He does not have any pain with urination. The patient has had diabetes For a long time. His A1c was 5.6 in June
[2020-02-09 16:23] LABS: Erythrocyte Sedimentation Rate 65 mm/hr (0-20)
[2020-02-09 17:13] LABS: Creatine Kinase 29 U/L (55-170)
[2020-02-09 17:17] LABS: Complement C3 59 mg/dL (88-165)
[2020-02-09 17:19] LABS: Iron 34 ug/dL (49-181)
[2020-02-09 17:25] LABS: Parathyroid Intact 78.2 pg/mL (7.5-53.5)
[2020-02-09 17:29] LABS: Percent Iron Saturation 12 % (20-50)
--- NOTE | 2020-02-09 17:51 | PM.IMPN ---
Progress Note: A&P Assessment and Plan (1) Acute respiratory failure with hypoxia: Code(s): J96.01 - Acute respiratory failure with hypoxia Status: Acute Assessment and Plan: secondary to congestive heart failure. Continue beta-félix and diurese as renal status will allow still hypoxic on RA (2) Acute exacerbation of congestive heart failure: Code(s): I50.9 - Heart failure, unspecified Status: Acute Assessment and Plan: echo 12/23 revealed ejection fraction of 35% with diastolic dysfunction and moderate to severe with moderate MR continue beta-félix hydralazine and diuretic and increase lasix to bid per nephrology (3) Chronic progressive renal failure, stage 4 (severe): Code(s): N18.4 - Chronic kidney disease, stage 4 (severe) Status: Acute Assessment and Plan: creatinine 3.3 again today. Renal sonogram showed no hydro but distended bladder and over 600 ml residual so cath left in . May be some component of obstructive uropathy too (4) Aortic stenosis: Onset Date: ~12/2019 Code(s): I35.0 - Nonrheumatic aortic (valve) stenosis Status: Acute Assessment and Plan: moderate to severe with 1 cm2 area on most recent echo (5) Chronic anemia: Code(s): D64.9 - Anemia, unspecified Status: Acute Assessment and Plan: chronic disease unchanged (6) Hypertension: Code(s): I10 - Essential (primary) hypertension Status: Acute Assessment and Plan: continue hydralazine, diuretic, and beta-félix (7) Type 2 diabetes mellitus with peripheral neuropathy: Code(s): E11.42 - Type 2 diabetes mellitus with diabetic polyneuropathy Status: Acute Assessment and Plan: sliding scale recent A1c< 6 and fbs low 100s (8) Benign prostatic hyperplasia: Code(s): N40.0 - Benign prostatic hyperplasia without lower urinary tract symptoms Status: Acute Assessment and Plan: left continue finasteride and tamsulosin and geiger now. will need follow up with urologist for voiding trial (9) DVT prophylaxis: Code(s): Z29.9 - Encounter for prophylactic measures, unspecified Status: Acute Assessment and Plan: heparin subcu with stage IV renal failure Subjective Date/time seen: 02/09/20 17:51 Interval history: Date of visit 02/08. 84 year known aortic and mitral disease and systolic and diastolic heart failure admitted with increasing shortness breath and edema. After IV diuresis feels slightly better. No chest pain or palpitation. now on po lasix. urine retension and geiger placed pm 11 with >600ml residual still some sob with exertion Exam Narrative: Exam Narrative: Blood pressure 146/60 pulse 72 saturating 93% on 2 L cannula General: Well-developed elderly male sitting in chair comfortable. HEENT: Wearing glasses. PERRL, Sclerae anicteric. Neck: Supple. No significant JVD. Respiratory: Respirations are even and nonlabored. Diminished at the bases and faint crackle R Cardiovascular: Regular rate and rhythm with S1-S2. II-III/ best heard at the right upper sternal border. Gastrointestinal: Abdomen is soft, nontender, and nondistended with positive bowel sounds. Skin: Warm and dry. Extremities: minimal edema now Radial and pedal pulses intact. Neurological: Alert. no gross focal deficit Psychiatric: Pleasant and cooperative. Appropriate mood. Objective Data Vital Signs Vital Signs: Vital Signs - 24 hr 02/08/20 18:30 02/08/20 20:00 02/08/20 20:20 Temperature 36.2 C L Pulse Rate 70 69 69 Respiratory Rate 16 18 Blood Pressure 138/53 L Pulse Oximetry 91 92 02/08/20 21:11 02/08/20 22:14 02/09/20 00:00 Temperature 36.7 C Pulse Rate 80 80 Respiratory Rate 18 Blood Pressure 152/59 H Pulse Oximetry 92 92 02/09/20 02:00 02/09/20 04:00 02/09/20 05:42 Temperature 36.8 C 37.1 C Pulse Rate 71 68 67 Respiratory Rat
[2020-02-09 19:48] LABS: Sodium Urine Random 47 meq/L
[2020-02-09 21:03] LABS: Glucose Point of Care 152 (65-105)
[2020-02-09] MEDS: TAMSULOSIN HCL 0.4 MG CAPSULE PO (21:25)
[2020-02-09] MEDS: VITAMIN B COMPLEX CAPSULE 1 CAP PO (21:25)
[2020-02-10] VITALS (11 sets, daily range): BP systolic 140–149; BP diastolic 58–73; PULSE 57–75; RESP 14–22; TEMP 36.6–37.2; O2SAT 91–97
--- NOTE | 2020-02-10 | ECHO_ITS ---
Patient Info Name: Dell Leon Age: 84 years : 1935 Gender: Male Ht: 74 in Wt: 263 lbs BSA: 2.53 m2 HR: 72 bpm BP: 148 / 61 mmHg Technical Quality: Good Exam Date: 02/10/2020 1:26 PM Exam Location: [facility] Pulmonary Exam Room: 241 Patient Status: Inpatient Admit Date: 02/06/2020 Staff Ordering Physician: Luke Corado DO Manager Data Warehousing: Cheyenne Iqbal RDCS Attending Provider: Ian Agrawal MD Referring Physician: Mak NORIEGA; Exam Type: CA echo doppler color flow Study Info Indications - chf hx/o Complete two-dimensional, color flow and Doppler transthoracic echocardiogram is performed. Summary 1. Complete two-dimensional, color flow and Doppler transthoracic echocardiogram is performed. 2. Left ventricular chamber dimension is mildly enlarged. 3. Left ventricular systolic function is preserved, estimated at 50-55%. 4. There is mildly increased left ventricular wall thickness. 5. The left ventricular diastolic function is grade I diastolic dysfunction. 6. E/e' 21 is elevated. 7. Left atrial chamber dimension is mildly enlarged. 8. Right atrial chamber dimension is mildly enlarged. 9. The aortic valve is not well visualized. Cannot determine number of aortic valve leaflets. 10. There is severe aortic valve sclerosis. 11. There is moderate to severe aortic valve stenosis with a peak velocity of 353 cm/s, mean gradient of 30 mmHg, and aortic valve area of 1.0 cm2. The dimensionless index is 0.27 which supports aortic stenosis that is less than severe. 12. The mitral valve has moderately calcified annulus. 13. There is mild mitral valve regurgitation. 14. There is mild tricuspid valve regurgitation. 15. Moderate pulmonary hypertension, estimated pulmonary arterial systolic pressure is 53 mmHg. Left Ventricle E/e' 21 is elevated. Left ventricular systolic function is preserved, estimated at 50-55%. Left ventricular chamber dimension is mildly enlarged. There is mildly increased left ventricular wall thickness. The left ventricular diastolic function is grade I diastolic dysfunction. Right Ventricle Right ventricular chamber dimension is normal. Right ventricular systolic function is normal. Left Atria Left atrial chamber dimension is mildly enlarged. Right Atria Right atrial chamber dimension is mildly enlarged. Aortic Valve The aortic valve is not well visualized. Cannot determine number of aortic valve leaflets. There is moderate to severe aortic valve stenosis with a peak velocity of 353 cm/s, mean gradient of 30 mmHg, and aortic valve area of 1.0 cm2. The dimensionless index is 0.27 which supports aortic stenosis that is less than severe. There is severe aortic valve sclerosis. There is no aortic valve regurgitation. Pulmonic Valve There is no pulmonic regurgitation. Mitral Valve The mitral valve has moderately calcified annulus. There is no mitral valve stenosis. There is mild mitral valve regurgitation. Tricuspid Valve There is mild tricuspid valve regurgitation. Moderate pulmonary hypertension, estimated pulmonary arterial systolic pressure is 53 mmHg. Pericardium/Pleural There is no pericardial effusion. Inferior Vena Cava Normal inferior vena cava with >50% collapse upon inspiration consistent with normal right atrial pressure, 5 mmHg. Aorta The aortic root size at the sinus of Valsalva is normal. Left Ventricular Outflow Tract
[2020-02-10 02:49] LABS: Glucose Point of Care 164 (65-105)
[2020-02-10] MEDS: GABAPENTIN 300 MG CAPSULE 600 MG PO ×2 (05:54→14:10)
[2020-02-10] MEDS: hydrALAZINE HCL 50 MG TABLET PO (05:55)
[2020-02-10 06:35] LABS: Albumin Level 3.2 g/dL (3.5-5.1); Anion Gap 8 mmol/L (8-16); Blood Urea Nitrogen 70 mg/dL (9-20); Calcium 8.4 mg/dL (8.4-10.2); Carbon Dioxide 28 mmol/L (22-30); Chloride 99 mmol/L (98-107); Estimated CRCL calculation 21 ml/min; Estimated Glomerular Filt Rate 17; Glucose 118 mg/dL (75-110); Phosphorus 4.3 mg/dL (2.5-4.5); Potassium 3.8 mmol/L (3.4-5.0); Sodium 135 mmol/L (137-145)
[2020-02-10 07:32] LABS: Glucose Point of Care 115 (65-105)
--- NOTE | 2020-02-10 07:57 | PM.PNCARD ---
Progress Note: A&P Assessment and Plan (1) Chronic progressive renal failure, stage 4 (severe): Code(s): N18.4 - Chronic kidney disease, stage 4 (severe) Status: Acute Assessment and Plan: Continue to monitor kidney function and electrolytes as he diuresis. He sees Dr. Perez [facility] nephrology. (2) Hypertension: Code(s): I10 - Essential (primary) hypertension Status: Acute Assessment and Plan: Mildly high. Monitor as he diuresis. (3) Diastolic heart failure: Code(s): I50.30 - Unspecified diastolic (congestive) heart failure Status: Acute Assessment and Plan: Grade III diastolic heart failure that is acute on chronic with mild chronic systolic heart failure with EF 45-50%. Recheck echo today. Change Lasix 40 mg IV BID. Needs to wear compression stockings during the day for edema of legs. Issues with urinary retention probably from BPH and has geiger in place. (4) Aortic stenosis: Onset Date: ~12/2019 Code(s): I35.0 - Nonrheumatic aortic (valve) stenosis Status: Acute Assessment and Plan: Mod-severe in Dec 2019. Recheck echo. (5) HLD (hyperlipidemia): Code(s): E78.5 - Hyperlipidemia, unspecified Status: Acute Subjective Date/time seen: 02/10/20 07:57 Denies chest pain or sob. On oxygen NC and has geiger catheter in place. Exam Const: General: cooperative, healthy appearing and comfortable Orientation/consciousness: oriented to person, oriented to place and oriented to time Resp: Auscultation: no crackles, no rales, no rhonchi, no wheezes and diminished lung sounds Cardio: Jugular venous distension: no JVD Rate: regular rate Rhythm: regular rhythm Heart sounds: Murmur heart sound present (III/ systolic murmur RICS) Peripheral pulses: dorsalis pedis present Neuro: General: oriented to person, oriented to place and oriented to time Extrem: Right lower extremity: edema Left lower extremity: edema Other: Mild edema bilateral legs Objective Data Vital Signs Vital Signs: Vital Signs - 24 hr 02/09/20 08:00 02/09/20 08:22 02/09/20 08:23 Temperature Pulse Rate 69 68 Respiratory Rate Blood Pressure Pulse Oximetry 84 L 02/09/20 08:24 02/09/20 10:00 02/09/20 12:00 Temperature 97.3 F L Pulse Rate 80 70 Respiratory Rate 15 Blood Pressure 159/70 H Pulse Oximetry 92 96 02/09/20 14:00 02/09/20 16:00 02/09/20 17:30 Temperature 97.6 F 97.9 F Pulse Rate 73 66 74 Respiratory Rate 19 23 H Blood Pressure 146/59 H 160/63 H Pulse Oximetry 93 93 02/09/20 20:00 02/09/20 21:24 02/10/20 00:00 Temperature 99.3 F 99 F Pulse Rate 75 77 73 Respiratory Rate 22 H 22 H Blood Pressure 152/67 H 140/58 L Pulse Oximetry 90 91 02/10/20 04:00 02/10/20 04:25 Temperature 98.5 F Pulse Rate 63 62 Respiratory Rate 18 Blood Pressure 148/61 H Pulse Oximetry 95 Intake/Output Intake/Output: Intake & Output 02/07/20 02/08/20 02/09/20 02/10/20 23:59 23:59 23:59 23:59 Intake Total 1487 616 7910 290 Output Total 950 1550 1275 600 Balance 720 -610 145 -310 Meds/Results Medications: Active Medications Generic Name Dose Route Start Last Admin Trade Name Freq PRN Reason Stop Dose Admin Acetaminophen 650 mg 02/06/20 20:27 Acetaminophen 325 Mg Tablet PO Q12H PRN Pain Amlodipine Besylate 5 mg 02/07/20 09:00 02/09/20 08:23 Amlodipine Besylate 5 Mg Tablet PO 5 mg DAILY TIRSO Administration Aspirin 81 mg 02/07/20 09:00 02/09/20 08:23 Aspirin 81 Mg Enteric Tablet PO 81 mg DAILY TIRSO Administration Atorvastatin Calcium 10 mg 02/07/20 09:00 02/09/20 08:23 Atorvastatin 10 Mg Tablet PO 10 mg DAILY TIRSO Administration Calcium Carbonate 500 mg 02/09/20 08:00 02/09/20 08:23 Calcium/Vitamin D 500 Mg Tablet PO 500 mg DAILY@0800 TIRSO Administration Carvedilol 25 mg 02/06/20 21:00 02/09/20 21:24 Carvedilol 25 Mg Tablet P
[2020-02-10] MEDS: LORATADINE 10 MG TABLET PO (08:31)
[2020-02-10] MEDS: THERAPEUTIC MULTIVITAMINS/MINERALS TAB (*BKC) 1 TABLET PO (08:31)
[2020-02-10] MEDS: PANTOPRAZOLE 40 MG TABLET PO (08:31)
[2020-02-10] MEDS: DOCUSATE SODIUM 100 MG CAPSULE PO ×2 (08:31→20:36)
[2020-02-10] MEDS: amLODIPine BESYLATE 5 MG TABLET PO (08:31)
[2020-02-10] MEDS: ATORVASTATIN 10 MG TABLET PO (08:31)
[2020-02-10] MEDS: FUROSEMIDE INJ 40 MG/4 ML VIAL IV PUSH (08:31)
[2020-02-10] MEDS: ASPIRIN 81 MG ENTERIC TABLET PO (08:31)
[2020-02-10] MEDS: carvediloL 25 MG TABLET PO ×2 (08:32→20:35)
[2020-02-10] MEDS: FINASTERIDE 5 MG TABLET PO (08:32)
--- NOTE | 2020-02-10 08:48 | PM.PNNEP ---
Progress Note: A&P Assessment and Plan (1) Chronic progressive renal failure, stage 4 (severe): Code(s): N18.4 - Chronic kidney disease, stage 4 (severe) Status: Acute Assessment and Plan: Dell has chronic kidney disease stage 4. His baseline creatinine runs around 2.5-2.8. Now it is running 3.3. Most likely the chronic kidney disease is from diabetes hypertension and under perfusion from his heart. Renal ultrasound shows medical renal disease. Sed rate is 65 C3 is low. C4 is normal. Urinalysis does show lots of protein. Urine protein to creatinine ratio was not done. Will reorder. The creatinine is now little higher. This may be from progression of disease or because of worsened heart disease. Because of the high sed rate, and proteinuria, consider renal biopsy. Will hold aspirin for now while the rest of the serology comes back. unfortunately he just got his dose. Will also hold hydralazine since this seems to stimulate the immune system. In the meantime will increase diuretics because he does still have congestive heart failure. (2) Acute exacerbation of congestive heart failure: Code(s): I50.9 - Heart failure, unspecified Status: Acute Assessment and Plan: The patient has mildly decreased systolic function, severe to moderate aortic stenosis, and diastolic dysfunction which are all contributing to poor forward flow and probably chronic pre renal azotemia on top of his parenchymal kidney disease. He is getting treated for his heart by Dr. Corado. (3) Hypertension: Code(s): I10 - Essential (primary) hypertension Status: Acute Assessment and Plan: Blood pressure is mildly elevated. This might improve with diuresis. Will keep an eye on this. (4) Type 2 diabetes mellitus with peripheral neuropathy: Code(s): E11.42 - Type 2 diabetes mellitus with diabetic polyneuropathy Status: Acute Assessment and Plan: On Accu-Cheks and sliding-scale insulin (5) Gastritis: Code(s): K29.70 - Gastritis, unspecified, without bleeding Status: Acute Assessment and Plan: he takes pantoprazole at home (6) Anemia: Code(s): D64.9 - Anemia, unspecified Status: Acute Assessment and Plan: hemoglobin is mildly low. This might be due to his chronic kidney disease. Will check stool guaiac and iron is to be sure (7) Vitamin D deficiency: Code(s): E55.9 - Vitamin D deficiency, unspecified Status: Acute Assessment and Plan: the patient takes a vitamin D supplement along with his calcium Subjective Date/time seen: 02/10/20 08:48 Interval history: Dell is feeling about the same today. No chest pain or shortness of breath. He still a little bit swollen. Review of Systems Cardiovascular: Cardiovascular: Reports no additional cardiovascular complaints Respiratory: Respiratory: Reports no additional respiratory complaints Gastrointestinal: Gastrointestinal: Reports no additional gastrointestinal complaints Genitourinary: Genitourinary: Reports no additional male genitourinary complaints Exam Narrative: Exam Narrative: WDWN in NAD skin no rash head ncat lungs clear cor reg no rub abd BS+ nontender and soft ext 1+ edema. Objective Data Vital Signs Vital Signs: Vital Signs - 24 hr 02/09/20 10:00 02/09/20 12:00 02/09/20 14:00 Temperature 36.3 C L 36.4 C Pulse Rate 80 70 73 Respiratory Rate 15 19 Blood Pressure 159/70 H 146/59 H Pulse Oximetry 96 93 02/09/20 16:00 02/09/20 17:30 02/09/20 20:00 Temperature 36.6 C 37.4 C Pulse Rate 66 74 75 Respiratory Rate 23 H 22 H Blood Pressure 160/63 H 152/67 H Pulse Oximetry 93 90 02/09/20 21:24 02/10/20 00:00 02/10/20 04:00 Temperature 37.2 C 36.9 C Pulse Rate 77 73 63 Respiratory Rate 22 H 18 Blood Pressure 140/58 L 148/61 H Pulse Oximetry 91 95 02/10/20 04:25 Temperature Pul
[2020-02-10] MEDS: HEPARIN SODIUM 5,000 UNITS/ML VIAL 5000 UNITS SUB-Q ×2 (10:09→20:36)
[2020-02-10] MEDS: metOLazone 5 MG TABLET PO (10:10)
[2020-02-10 11:41] LABS: Iron 25 ug/dL (49-181)
[2020-02-10 11:47] LABS: Glucose Point of Care 176 (65-105)
[2020-02-10 11:51] LABS: Percent Iron Saturation 9 % (20-50)
--- NOTE | 2020-02-10 15:35 | PM.IMPN ---
Progress Note: A&P Assessment and Plan (1) Acute respiratory failure with hypoxia: Code(s): J96.01 - Acute respiratory failure with hypoxia Status: Acute Assessment and Plan: secondary to congestive heart failure. Continue beta-félix and diurese as renal status will allow, still hypoxic on RA (2) Acute exacerbation of congestive heart failure: Code(s): I50.9 - Heart failure, unspecified Status: Acute Assessment and Plan: echo 12/23 revealed ejection fraction of 35% with diastolic dysfunction and moderate to severe with moderate MR continue beta-félix hydralazine and diuretic (IV bumex and po metolazone) per nephrology (3) Chronic progressive renal failure, stage 4 (severe): Code(s): N18.4 - Chronic kidney disease, stage 4 (severe) Status: Acute Assessment and Plan: creatinine 3.4 today. Renal sonogram showed no hydro but distended bladder and over 600 ml residual so cath left in . May be some component of obstructive uropathy too nephrology considering renal biopsy with elevated ESR and proteinuria (4) Aortic stenosis: Onset Date: ~12/2019 Code(s): I35.0 - Nonrheumatic aortic (valve) stenosis Status: Acute Assessment and Plan: moderate to severe with 1 cm2 area on most recent echo (5) Chronic anemia: Code(s): D64.9 - Anemia, unspecified Status: Acute Assessment and Plan: chronic disease unchanged (6) Hypertension: Code(s): I10 - Essential (primary) hypertension Status: Acute Assessment and Plan: continue hydralazine, diuretic, and beta-félix (7) Type 2 diabetes mellitus with peripheral neuropathy: Code(s): E11.42 - Type 2 diabetes mellitus with diabetic polyneuropathy Status: Acute Assessment and Plan: sliding scale recent A1c< 6 and fbs low 100s (8) Benign prostatic hyperplasia: Code(s): N40.0 - Benign prostatic hyperplasia without lower urinary tract symptoms Status: Acute Assessment and Plan: left continue finasteride and tamsulosin and geiger now. will need follow up with urologist for voiding trial (9) DVT prophylaxis: Code(s): Z29.9 - Encounter for prophylactic measures, unspecified Status: Acute Assessment and Plan: heparin subcu with stage IV renal failure Subjective Date/time seen: 02/10/20 15:35 Interval history: Date of visit 02/09. 84 year known aortic and mitral disease and systolic and diastolic heart failure admitted with increasing shortness breath and edema. After IV diuresis feels slightly better. No chest pain or palpitation. . urine retension and geiger placed pm 11 with >600ml residual still some sob with exertion and edema Exam Narrative: Exam Narrative: Blood pressure 146/64 pulse 74 saturating 94% on 2 L cannula General: Well-developed elderly male sitting in chair comfortable. HEENT: Wearing glasses. PERRL, Sclerae anicteric. Neck: Supple. No significant JVD. Respiratory: Respirations are even and nonlabored. Diminished at the bases and faint crackle bases Cardiovascular: Regular rate and rhythm with S1-S2. II-III/ best heard at the right upper sternal border. Gastrointestinal: Abdomen is soft, nontender, and nondistended with positive bowel sounds. Skin: Warm and dry. Extremities: minimal edema now Radial and pedal pulses intact. Neurological: Alert. no gross focal deficit Psychiatric: Pleasant and cooperative. Appropriate mood. Objective Data Vital Signs Vital Signs: Vital Signs - 24 hr 02/09/20 16:00 02/09/20 17:30 02/09/20 20:00 Temperature 36.6 C 37.4 C Pulse Rate 66 74 75 Respiratory Rate 23 H 22 H Blood Pressure 160/63 H 152/67 H Pulse Oximetry 93 90 02/09/20 21:24 02/10/20 00:00 02/10/20 04:00 Temperature 37.2 C 36.9 C Pulse Rate 77 73 63 Respiratory Rate 22 H 18 Blood Pressure 140/58 L 148/61 H Pulse Oximetry 91 95 02/10/20
[2020-02-10 16:04] LABS: Creatinine Urine 47.8 mg/dL; Total Protein Urine Random 113 mg/dL
[2020-02-10 17:27] LABS: Glucose Point of Care 151 (65-105)
[2020-02-10] MEDS: BUMETANIDE INJ 2.5 MG/10 ML VIAL 2 MG IV PUSH (17:29)
[2020-02-10] MEDS: VITAMIN B COMPLEX CAPSULE 1 CAP PO (20:36)
[2020-02-10] MEDS: TAMSULOSIN HCL 0.4 MG CAPSULE PO (20:36)
[2020-02-10 21:41] LABS: Glucose Point of Care 134 (65-105)
[2020-02-11] VITALS (12 sets, daily range): BP systolic 147–158; BP diastolic 60–74; PULSE 58–78; RESP 16–22; TEMP 36.3–37.2; O2SAT 93–98
[2020-02-11] MEDS: GABAPENTIN 300 MG CAPSULE 600 MG PO ×4 (01:13→21:00)
[2020-02-11 06:11] LABS: Basophils Percent Auto 0.4 % (0.2-1.2); Eosinophils Absolute Auto 0.2 K/mm3 (0-0.3); Hemoglobin 9.4 g/dL (14.0-18.0); Immature Granulocyte Absolute 0.05 K/mm3 (0.00-0.031); Immature Granulocyte Percent A 0.9 % (0-0.5); Lymphocytes Absolute Auto 0.78 K/mm3 (0.9-3.2); Lymphocytes Percent Auto 13.7 % (18.3-44.2); Mean Corpuscular HGB Conc 32.4 g/dl (32-36); Mean Corpuscular Volume 98.6 fl (80-100); Mean Platelet Volume 11.3 fl (7.4-10.4); Monocytes Absolute Auto 0.7 K/mm3 (0.1-0.6); Monocytes Percent Auto 12.8 % (2.6-8.5); Neutrophils Absolute Auto 3.9 K/mm3 (1.3-6.7); Neutrophils Percent Auto 69.2 % (45.5-73.1); Platelet Count Result 113 k/mm3 (150-375); Red Blood Count 2.94 M/mm3 (4.6-6.20); Red Cell Distribution Width 14.6 % (11.5-14.5); White Blood Count 5.7 K/mm3 (4.5-10.0)
[2020-02-11 06:24] LABS: Anion Gap 6 mmol/L (8-16); Blood Urea Nitrogen 79 mg/dL (9-20); Calcium 8.3 mg/dL (8.4-10.2); Carbon Dioxide 31 mmol/L (22-30); Chloride 96 mmol/L (98-107); Estimated CRCL calculation 21 ml/min; Estimated Glomerular Filt Rate 17; Glucose 127 mg/dL (75-110); Phosphorus 4.9 mg/dL (2.5-4.5); Potassium 3.8 mmol/L (3.4-5.0); Sodium 133 mmol/L (137-145)
[2020-02-11 07:39] LABS: Glucose Point of Care 134 (65-105)
[2020-02-11] MEDS: carvediloL 25 MG TABLET PO ×2 (08:29→21:02)
[2020-02-11] MEDS: metOLazone 5 MG TABLET PO (08:29)
[2020-02-11] MEDS: THERAPEUTIC MULTIVITAMINS/MINERALS TAB (*BKC) 1 TABLET PO (08:30)
[2020-02-11] MEDS: BUMETANIDE INJ 2.5 MG/10 ML VIAL 2 MG IV PUSH ×2 (08:30→17:18)
[2020-02-11] MEDS: amLODIPine BESYLATE 5 MG TABLET PO (08:30)
[2020-02-11] MEDS: FINASTERIDE 5 MG TABLET PO (08:30)
[2020-02-11] MEDS: PANTOPRAZOLE 40 MG TABLET PO (08:30)
[2020-02-11] MEDS: ATORVASTATIN 10 MG TABLET PO (08:30)
[2020-02-11] MEDS: LORATADINE 10 MG TABLET PO (08:30)
[2020-02-11] MEDS: DOCUSATE SODIUM 100 MG CAPSULE PO ×2 (08:30→21:02)
[2020-02-11] MEDS: HEPARIN SODIUM 5,000 UNITS/ML VIAL 5000 UNITS SUB-Q ×2 (08:33→21:01)
--- NOTE | 2020-02-11 08:50 | PM.PNNEP ---
Progress Note: A&P Assessment and Plan (1) Chronic progressive renal failure, stage 4 (severe): Code(s): N18.4 - Chronic kidney disease, stage 4 (severe) Status: Acute Assessment and Plan: Dell has chronic kidney disease stage 4. His baseline creatinine runs around 2.5-2.8. Now it is running 3.3. Most likely the chronic kidney disease is from diabetes hypertension and under perfusion from his heart, due to the aortic stenosis.. Renal ultrasound shows medical renal disease. Sed rate is 65 C3 is low. C4 is normal. Urinalysis does show lots of protein. Urine protein to creatinine ratio was not done. Will reorder. The creatinine seems to be relatively stable. This may be from progression of disease or because of worsened heart disease. Because of the high sed rate, and proteinuria, consider renal biopsy. Will hold aspirin for now while the rest of the serology comes back. unfortunately he just got his dose. Will also hold hydralazine since this seems to stimulate the immune system. Diuretics were increased yesterday. He seems to be making more urine, although intake/output does not reflect this because the dose increase was not until yesterday afternoon. Just in the last 3 hours a made 550cc of urine according to the nurse tech. Dr. Perez will be back tomorrow. (2) Acute exacerbation of congestive heart failure: Code(s): I50.9 - Heart failure, unspecified Status: Acute Assessment and Plan: The patient has mildly decreased systolic function, severe to moderate aortic stenosis, and diastolic dysfunction which are all contributing to poor forward flow and probably chronic pre renal azotemia on top of his parenchymal kidney disease. He is getting treated for his heart by Dr. Corado. (3) Hypertension: Code(s): I10 - Essential (primary) hypertension Status: Acute Assessment and Plan: Blood pressure is mildly elevated. This might improve with diuresis. Will keep an eye on this. (4) Type 2 diabetes mellitus with peripheral neuropathy: Code(s): E11.42 - Type 2 diabetes mellitus with diabetic polyneuropathy Status: Acute Assessment and Plan: On Accu-Cheks and sliding-scale insulin (5) Gastritis: Code(s): K29.70 - Gastritis, unspecified, without bleeding Status: Acute Assessment and Plan: he takes pantoprazole at home (6) Anemia: Code(s): D64.9 - Anemia, unspecified Status: Acute Assessment and Plan: hemoglobin is mildly low. This might be due to his chronic kidney disease. Iron saturation is only 9. Will give some Venofer. Stool guaiacs are pending (7) Vitamin D deficiency: Code(s): E55.9 - Vitamin D deficiency, unspecified Status: Acute Assessment and Plan: the patient takes a vitamin D supplement along with his calcium Subjective Date/time seen: 02/11/20 08:50 Interval history: Dell is feeling about the same today. Sitting up in a chair No chest pain or shortness of breath. he still is a little swollen. Review of Systems Cardiovascular: Cardiovascular: Reports no additional cardiovascular complaints Respiratory: Respiratory: Reports no additional respiratory complaints Gastrointestinal: Gastrointestinal: Reports no additional gastrointestinal complaints Genitourinary: Genitourinary: Reports no additional male genitourinary complaints Exam Narrative: Exam Narrative: WDWN in NAD skin no rash head ncat lungs clear but some decreased breath sounds at the bases cor reg no rub abd BS+ nontender and soft ext 1+ edema. Objective Data Vital Signs Vital Signs: Vital Signs - 24 hr 02/10/20 10:00 02/10/20 12:00 02/10/20 14:00 Temperature 36.8 C 36.9 C Pulse Rate 63 75 74 Respiratory Rate 14 14 Blood Pressure 143/58 H 149/65 H Pulse Oximetry 96 94 02/10/20 16:00 02/10/20 18:00 02/10/20 20:00 Tempera
--- NOTE | 2020-02-11 10:00 | PC.NURSE ---
24 hour urine started at 1000 on 02/11/20.
[2020-02-11] MEDS: IRON SUCROSE COMPLEX 200 MG in SODIUM CHLORIDE 0.9% IV 50 ML 120 MG IVPB (10:03)
[2020-02-11 11:57] LABS: Glucose Point of Care 124 (65-105)
[2020-02-11 14:29] LABS: IFOB Positive Control Positive; Immunochemical Fecal Occult Bl Negative (N)
--- NOTE | 2020-02-11 15:08 | PM.IMPN ---
Progress Note: A&P Assessment and Plan (1) Acute respiratory failure with hypoxia: Code(s): J96.01 - Acute respiratory failure with hypoxia Status: Acute Assessment and Plan: secondary to congestive heart failure. Continue beta-félix and diurese as renal status will allow, still hypoxic on RA (2) Acute exacerbation of congestive heart failure: Code(s): I50.9 - Heart failure, unspecified Status: Acute Assessment and Plan: echo 12/23 revealed ejection fraction of 35% with diastolic dysfunction and moderate to severe with moderate MR continue beta-félix and diuretic (IV bumex and po metolazone) per nephrology hydralazine on hold (3) Chronic progressive renal failure, stage 4 (severe): Code(s): N18.4 - Chronic kidney disease, stage 4 (severe) Status: Acute Assessment and Plan: creatinine 3.5 today. Renal sonogram showed no hydro but distended bladder and over 600 ml residual so cath left in . May be some component of obstructive uropathy too nephrology considering renal biopsy with elevated ESR and proteinuria (4) Aortic stenosis: Onset Date: ~12/2019 Code(s): I35.0 - Nonrheumatic aortic (valve) stenosis Status: Acute Assessment and Plan: moderate to severe with 1 cm2 area on most recent echo (5) Chronic anemia: Code(s): D64.9 - Anemia, unspecified Status: Acute Assessment and Plan: chronic disease unchanged (6) Hypertension: Code(s): I10 - Essential (primary) hypertension Status: Acute Assessment and Plan: continue , diuretic, and beta-félix, off hydralazine now (7) Type 2 diabetes mellitus with peripheral neuropathy: Code(s): E11.42 - Type 2 diabetes mellitus with diabetic polyneuropathy Status: Acute Assessment and Plan: sliding scale recent A1c< 6 and fbs low 100s (8) Benign prostatic hyperplasia: Code(s): N40.0 - Benign prostatic hyperplasia without lower urinary tract symptoms Status: Acute Assessment and Plan: continue finasteride and tamsulosin and geiger now. will need follow up with urologist for voiding trial (9) DVT prophylaxis: Code(s): Z29.9 - Encounter for prophylactic measures, unspecified Status: Acute Assessment and Plan: heparin subcu with stage IV renal failure Subjective Date/time seen: 02/11/20 15:08 Interval history: Date of visit 02/10. 84 year known aortic and mitral disease and systolic and diastolic heart failure admitted with increasing shortness breath and edema. After IV diuresis feels slightly better. No chest pain or palpitation. . urine retension and geiger placed pm 11 with >600ml residual still some sob with exertion and edema Exam Narrative: Exam Narrative: Blood pressure 146/74 pulse 72 saturating 98% on 3 L cannula General: Well-developed elderly male sitting in chair comfortable. HEENT: Wearing glasses. PERRL, Sclerae anicteric. Neck: Supple. No significant JVD. Respiratory: Respirations are even and nonlabored. Diminished at the bases and faint crackle bases almost gone Cardiovascular: Regular rate and rhythm with S1-S2. II-III/ best heard at the right upper sternal border. Gastrointestinal: Abdomen is soft, nontender, and nondistended with positive bowel sounds. Skin: Warm and dry. Extremities: minimal edema now Radial and pedal pulses intact. Neurological: Alert. no gross focal deficit Psychiatric: Pleasant and cooperative. Appropriate mood. Objective Data Vital Signs Vital Signs: Vital Signs - 24 hr 02/10/20 16:00 02/10/20 18:00 02/10/20 20:00 Temperature 36.7 C 36.6 C Pulse Rate 57 L 73 74 Respiratory Rate 16 22 H Blood Pressure 146/61 H 145/73 H Pulse Oximetry 95 95 02/10/20 20:35 02/11/20 00:00 02/11/20 04:00 Temperature 36.6 C 36.3 C L Pulse Rate 73 67 58 L Respiratory Rate 22 H 20 Blood Pressure 158/62 H 149/65 H Pu
[2020-02-11 16:36] LABS: Glucose Point of Care 153 (65-105)
[2020-02-11] MEDS: VITAMIN B COMPLEX CAPSULE 1 CAP PO (21:02)
[2020-02-11] MEDS: TAMSULOSIN HCL 0.4 MG CAPSULE PO (21:03)
[2020-02-11 21:20] LABS: Glucose Point of Care 184 (65-105)
[2020-02-12] VITALS (16 sets, daily range): BP systolic 116–156; BP diastolic 51–65; PULSE 60–80; RESP 16–22; TEMP 36.2–37.1; O2SAT 82–99
[2020-02-12] MEDS: GABAPENTIN 300 MG CAPSULE 600 MG PO ×3 (05:48→20:57)
[2020-02-12 05:54] LABS: Albumin Level 3.3 g/dL (3.5-5.1); Anion Gap 10 mmol/L (8-16); Blood Urea Nitrogen 80 mg/dL (9-20); Calcium 8.5 mg/dL (8.4-10.2); Carbon Dioxide 30 mmol/L (22-30); Chloride 96 mmol/L (98-107); Estimated CRCL calculation 21 ml/min; Estimated Glomerular Filt Rate 17; Glucose 104 mg/dL (75-110); Phosphorus 4.8 mg/dL (2.5-4.5); Potassium 3.8 mmol/L (3.4-5.0); Sodium 136 mmol/L (137-145)
[2020-02-12 06:55] LABS: Hepatitis B Surface Antigen Negative (Negative)
[2020-02-12 07:01] LABS: HAV RESULT Negative (Negative); Hepatitis B Core IgM Result Negative (Negative)
[2020-02-12 07:12] LABS: Hepatitis B Surface Anti Res Negative; Hepatitis C Virus Antibody Negative (Negative)
[2020-02-12 07:34] LABS: Glucose Point of Care 105 (65-105)
[2020-02-12] MEDS: carvediloL 25 MG TABLET PO ×2 (08:18→20:57)
[2020-02-12] MEDS: DOCUSATE SODIUM 100 MG CAPSULE PO ×2 (08:18→20:57)
[2020-02-12] MEDS: ATORVASTATIN 10 MG TABLET PO (08:18)
[2020-02-12] MEDS: BUMETANIDE INJ 2.5 MG/10 ML VIAL 2 MG IV PUSH ×2 (08:18→18:07)
[2020-02-12] MEDS: PANTOPRAZOLE 40 MG TABLET PO (08:19)
[2020-02-12] MEDS: amLODIPine BESYLATE 5 MG TABLET PO (08:19)
[2020-02-12] MEDS: metOLazone 5 MG TABLET PO (08:19)
[2020-02-12] MEDS: LORATADINE 10 MG TABLET PO (08:19)
[2020-02-12] MEDS: FINASTERIDE 5 MG TABLET PO (08:19)
[2020-02-12] MEDS: HEPARIN SODIUM 5,000 UNITS/ML VIAL 5000 UNITS SUB-Q ×2 (08:19→20:57)
[2020-02-12] MEDS: THERAPEUTIC MULTIVITAMINS/MINERALS TAB (*BKC) 1 TABLET PO (08:19)
[2020-02-12] MEDS: IRON SUCROSE COMPLEX 200 MG in SODIUM CHLORIDE 0.9% IV 50 ML 120 MG IVPB (10:30)
[2020-02-12 11:09] LABS: Creatinine Urine 45.4 mg/dL
[2020-02-12 11:43] LABS: Glucose Point of Care 128 (65-105)
[2020-02-12 12:22] LABS: Creatinine 24 Hour Urine 1.1 gm/24 (1.0-2.0); Total Volume 24 Hour Urine 2600 ml
--- NOTE | 2020-02-12 12:45 | PM.IMPN ---
Progress Note: A&P Assessment and Plan (1) Acute respiratory failure with hypoxia: Code(s): J96.01 - Acute respiratory failure with hypoxia Status: Acute Assessment and Plan: secondary to congestive heart failure. Continue beta-félix and diurese as renal status will allow, Today 02 sat >90 on RA (2) Acute exacerbation of congestive heart failure: Code(s): I50.9 - Heart failure, unspecified Status: Acute Assessment and Plan: echo 12/23 revealed ejection fraction of 35% with diastolic dysfunction and moderate to severe with moderate MR continue beta-félix and diuretic (IV bumex and po metolazone) per nephrology over 1000ml + out 02/10 hydralazine on hold (3) Chronic progressive renal failure, stage 4 (severe): Code(s): N18.4 - Chronic kidney disease, stage 4 (severe) Status: Acute Assessment and Plan: creatinine 3.4 today and stable. Renal sonogram showed no hydro but distended bladder and over 600 ml residual so cath left in . May be some component of obstructive uropathy too nephrology considering renal biopsy with elevated ESR and proteinuria (4) Aortic stenosis: Onset Date: ~12/2019 Code(s): I35.0 - Nonrheumatic aortic (valve) stenosis Status: Acute Assessment and Plan: moderate to severe with 1 cm2 area on most recent echo (5) Chronic anemia: Code(s): D64.9 - Anemia, unspecified Status: Acute Assessment and Plan: chronic disease unchanged (6) Hypertension: Code(s): I10 - Essential (primary) hypertension Status: Acute Assessment and Plan: evaluated today 02/11 and fair control, continue , diuretic, and beta-félix, off hydralazine now (7) Type 2 diabetes mellitus with peripheral neuropathy: Code(s): E11.42 - Type 2 diabetes mellitus with diabetic polyneuropathy Status: Acute Assessment and Plan: sliding scale recent A1c< 6 and fbs low 100s, today 104 (8) Benign prostatic hyperplasia: Code(s): N40.0 - Benign prostatic hyperplasia without lower urinary tract symptoms Status: Acute Assessment and Plan: continue finasteride and tamsulosin and geiger now. will need follow up with urologist for voiding trial Discussed with Dr Coelho and he will see him as outpt (9) DVT prophylaxis: Code(s): Z29.9 - Encounter for prophylactic measures, unspecified Status: Acute Assessment and Plan: heparin subcu with stage IV renal failure Subjective Date/time seen: 02/12/20 12:45 Interval history: Date of visit 02/11. 84 year known aortic and mitral disease and systolic and diastolic heart failure admitted with increasing shortness breath and edema. After IV diuresis feels better. No chest pain or palpitation. . urine retension and geiger placed pm 11/4 with >600ml residual still some sob with exertion and edema but overall better and requesting to go home Exam Narrative: Exam Narrative: Blood pressure 144/64 pulse 70 saturating 92% on RA General: Well-developed elderly male sitting in chair comfortable. HEENT: Wearing glasses. PERRL, Sclerae anicteric. Neck: Supple. No significant JVD. Respiratory: Respirations are even and nonlabored. Diminished at the bases but clear with no crackles today Cardiovascular: Regular rate and rhythm with S1-S2. II-III/ best heard at the right upper sternal border. Gastrointestinal: Abdomen is soft, nontender, and nondistended with positive bowel sounds. Skin: Warm and dry. Extremities: edema decreased but still present R>L Radial and pedal pulses intact. Neurological: Alert. no gross focal deficit Psychiatric: Pleasant and cooperative. Appropriate mood. Objective Data Vital Signs Vital Signs: Vital Signs - 24 hr 02/11/20 16:00 02/11/20 18:00 02/11/20 20:00 Temperature 36.8 C Pulse Rate 66 66 67 Respiratory Rate 17 16 Blood Pressure 153/60 H Pulse Oximetry 98 98
--- NOTE | 2020-02-12 15:24 | PCOTNOTE ---
The OT treatment session could not be completed this date. Will continue plan of care tomorrow, 02/13/2020.
[2020-02-12 17:16] LABS: Glucose Point of Care 185 (65-105)
--- NOTE | 2020-02-12 17:25 | P.PNNP_ITS ---
Progress Note: A&P Assessment and Plan (1) KENNY (acute kidney injury): Code(s): N17.9 - Acute kidney failure, unspecified Status: Acute Assessment and Plan: * really KENNY or is this just progression of his known CKD?? * creatinine higher than baseline on admission but has not deteriorated further * however, elevated ESR in association with nephrotic proteinuria is concerning * follow-up on pending serologies * consider renal biopsy.... (2) Chronic progressive renal failure, stage 4 (severe): Code(s): N18.4 - Chronic kidney disease, stage 4 (severe) Status: Chronic Assessment and Plan: * baseline creatinine runs around 2.5 - 2.8mg/dl * due to diabetes, hypertension, cardiac + vavlular heart disease (systolic + diastolic heart failure along with aortic stenosis) (3) Acute exacerbation of congestive heart failure: Code(s): I50.9 - Heart failure, unspecified Status: Acute Assessment and Plan: * better diuresis in the last 24 - 48 hours * Cardiology following * on diuretics * follow I/Os, respiratory status, daily weights...etc (4) Hypertension: Code(s): I10 - Essential (primary) hypertension Status: Acute Assessment and Plan: * BP seems to be doing better * follow trend with ongoing diuresis (5) Anemia: Code(s): D64.9 - Anemia, unspecified Status: Acute Assessment and Plan: * due to iron deficiency and underlying CKD * getting IV venofer * follow trend of H/H (6) Diabetes: Code(s): E11.9 - Type 2 diabetes mellitus without complications Status: Chronic Assessment and Plan: * on acchecks * on SSI Will continue to follow. Subjective Date/time seen: 02/12/20 17:25 Chart reviewed since admission -- seems to be doing better in the last 24 hours (better diuresis noted as well); daughter at bedside and we discussed the situation; no apparent distress voiced per patient; no events overnight or earlier this AM. Exam Narrative: Exam Narrative: General: WD/WN male in NAD Heart: normal S1 and S2; no rub Lungs: decreased breath sounds at the bases Abdomen: soft, nontender, nondistended, positive bowel sounds Extremities: no cyanosis or clubbing; 1+ edema Skin: warm and dry Objective Data Vital Signs Vital Signs: Vital Signs Temp Pulse Resp BP Pulse Ox 02/12/20 16:00 62 02/12/20 15:34 36.2 C L 74 16 116/51 L 99 02/12/20 14:17 92 02/12/20 14:15 82 L 02/12/20 12:00 71 02/12/20 11:30 36.3 C L 70 18 145/64 H 91 02/12/20 09:50 97 02/12/20 08:00 63 02/12/20 05:45 37.1 C 75 16 146/58 H 98 02/12/20 04:08 68 02/12/20 02:00 36.9 C 60 18 156/65 H 98 02/12/20 00:00 74 02/11/20 21:24 36.8 C 67 16 158/61 H 98 02/11/20 21:02 74 02/11/20 20:00 67 16 98 02/11/20 18:00 36.8 C 66 17 153/60 H 98 Intake/Output Intake/Output: Intake & Output 02/09/20 02/10/20 02/11/20 02/12/20 23:59 23:59 23:59 23:59 Intake Total 1420 1980 1070 940 Output Total 1275 1375 2450 2280 Balance 145 605 1380 -1340 Meds/Results Medications: Active Medications Generic Name Dose Route Start Last Admin Trade
--- NOTE | 2020-02-12 17:25 | PM.PNNEP ---
Progress Note: A&P Assessment and Plan (1) KENNY (acute kidney injury): Code(s): N17.9 - Acute kidney failure, unspecified Status: Acute Assessment and Plan: really KENNY or is this just progression of his known CKD?? creatinine higher than baseline on admission but has not deteriorated further however, elevated ESR in association with nephrotic proteinuria is concerning follow-up on pending serologies consider renal biopsy.... (2) Chronic progressive renal failure, stage 4 (severe): Code(s): N18.4 - Chronic kidney disease, stage 4 (severe) Status: Chronic Assessment and Plan: baseline creatinine runs around 2.5 - 2.8mg/dl due to diabetes, hypertension, cardiac + vavlular heart disease (systolic + diastolic heart failure along with aortic stenosis) (3) Acute exacerbation of congestive heart failure: Code(s): I50.9 - Heart failure, unspecified Status: Acute Assessment and Plan: better diuresis in the last 24 - 48 hours Cardiology following on diuretics follow I/Os, respiratory status, daily weights...etc (4) Hypertension: Code(s): I10 - Essential (primary) hypertension Status: Acute Assessment and Plan: BP seems to be doing better follow trend with ongoing diuresis (5) Anemia: Code(s): D64.9 - Anemia, unspecified Status: Acute Assessment and Plan: due to iron deficiency and underlying CKD getting IV venofer follow trend of H/H (6) Diabetes: Code(s): E11.9 - Type 2 diabetes mellitus without complications Status: Chronic Assessment and Plan: on acchecks on SSI Will continue to follow. Subjective Date/time seen: 02/12/20 17:25 Chart reviewed since admission -- seems to be doing better in the last 24 hours (better diuresis noted as well); daughter at bedside and we discussed the situation; no apparent distress voiced per patient; no events overnight or earlier this AM. Exam Narrative: Exam Narrative: General: WD/WN male in NAD Heart: normal S1 and S2; no rub Lungs: decreased breath sounds at the bases Abdomen: soft, nontender, nondistended, positive bowel sounds Extremities: no cyanosis or clubbing; 1+ edema Skin: warm and dry Objective Data Vital Signs Vital Signs: Vital Signs Temp Pulse Resp BP Pulse Ox 02/12/20 16:00 62 02/12/20 15:34 36.2 C L 74 16 116/51 L 99 02/12/20 14:17 92 02/12/20 14:15 82 L 02/12/20 12:00 71 02/12/20 11:30 36.3 C L 70 18 145/64 H 91 02/12/20 09:50 97 02/12/20 08:00 63 02/12/20 05:45 37.1 C 75 16 146/58 H 98 02/12/20 04:08 68 02/12/20 02:00 36.9 C 60 18 156/65 H 98 02/12/20 00:00 74 02/11/20 21:24 36.8 C 67 16 158/61 H 98 02/11/20 21:02 74 02/11/20 20:00 67 16 98 02/11/20 18:00 36.8 C 66 17 153/60 H 98 Intake/Output Intake/Output: Intake & Output 02/09/20 02/10/20 02/11/20 02/12/20 23:59 23:59 23:59 23:59 Intake Total 1420 1980 1070 940 Output Total 1275 1375 2450 2280 Balance 145 605 -1380 -1340 Meds/Results Medications: Active Medications Generic Name Dose Route Start Last Admin Trade Name Viviane PRN Reason Stop Dose Admin Acetaminophen 650 mg 02/06/20 20:27 Acetaminophen 325 Mg Tablet PO Q12H PRN Pain Amlodipine Besylate 5 mg 02/07/20 09:00 02/12/20 08:19 Amlodipine Besylate 5 Mg Tablet PO 5 mg DAILY TIRSO Administration Atorvastatin Calcium 10 mg 02/07/20 09:00 02/12/20 08:18 Atorvastatin 10 Mg Tablet PO 10 mg DAILY TIRSO Administration Bumetanide 2 mg 02/10/20 17:00 02/12/20 08:18 Bumetanide Inj 2.5 Mg/10 Ml Vial IV PUSH 2 mg BID TIRSO Administration Calcium Carbonate 500 mg 02/09/20 08:00 02/12/20 08:18 Calcium/Vitamin D 500 Mg Tablet PO 500 mg DAILY@0800 TIRSO Administration Carvedilol 25 mg 02/06/20 21:00 02/12/20 08:18 Carvedilol 25 Mg Tablet PO 25
[2020-02-12 19:59] LABS: Collection Time Urine 24 HOURS
--- NOTE | 2020-02-12 20:01 | PC.NURSE ---
Called lab to do Creatine clearance on 24 hour urine that was completed at 1000. Lab states they can and order placed.
[2020-02-12 20:02] LABS: Creatinine Clearance Urine 16.8 ml/min (75-125); Creatinine Urine 45.4 mg/dL; Patient Weight 256 Lbs; Total Volume 24 Hour Urine 2600 ml
[2020-02-12] MEDS: TAMSULOSIN HCL 0.4 MG CAPSULE PO (20:57)
[2020-02-12] MEDS: VITAMIN B COMPLEX CAPSULE 1 CAP PO (20:57)
[2020-02-12 21:23] LABS: Glucose Point of Care 148 (65-105)
[2020-02-12] MEDS: ACETAMINOPHEN 325 MG TABLET 650 MG PO (21:26)
[2020-02-13] VITALS (14 sets, daily range): BP systolic 131–154; BP diastolic 53–98; PULSE 62–87; RESP 16–22; TEMP 36.5–37.3; O2SAT 94–99
[2020-02-13 05:50] LABS: Basophils Percent Auto 0.3 % (0.2-1.2); Eosinophils Absolute Auto 0.2 K/mm3 (0-0.3); Eosinophils Percent Auto 3.4 % (0-4.4); Hematocrit 27.6 % (42.0-52.0); Hemoglobin 9.2 g/dL (14.0-18.0); Immature Granulocyte Absolute 0.05 K/mm3 (0.00-0.031); Immature Granulocyte Percent A 0.8 % (0-0.5); Lymphocytes Absolute Auto 0.72 K/mm3 (0.9-3.2); Lymphocytes Percent Auto 11.8 % (18.3-44.2); Mean Corpuscular HGB Conc 33.3 g/dl (32-36); Mean Corpuscular Hemoglobin 32.2 pg (26-34); Mean Corpuscular Volume 96.5 fl (80-100); Mean Platelet Volume 10.6 fl (7.4-10.4); Monocytes Absolute Auto 0.8 K/mm3 (0.1-0.6); Monocytes Percent Auto 13.4 % (2.6-8.5); Neutrophils Absolute Auto 4.3 K/mm3 (1.3-6.7); Neutrophils Percent Auto 70.3 % (45.5-73.1); Platelet Count Result 135 k/mm3 (150-375); Red Blood Count 2.86 M/mm3 (4.6-6.20); Red Cell Distribution Width 14.4 % (11.5-14.5); White Blood Count 6.1 K/mm3 (4.5-10.0)
[2020-02-13 06:05] LABS: Albumin Level 3.1 g/dL (3.5-5.1); Anion Gap 10 mmol/L (8-16); Blood Urea Nitrogen 82 mg/dL (9-20); Calcium 8.5 mg/dL (8.4-10.2); Carbon Dioxide 29 mmol/L (22-30); Chloride 96 mmol/L (98-107); Estimated CRCL calculation 20 ml/min; Estimated Glomerular Filt Rate 17; Glucose 105 mg/dL (75-110); Phosphorus 4.2 mg/dL (2.5-4.5); Potassium 3.6 mmol/L (3.4-5.0); Sodium 135 mmol/L (137-145)
[2020-02-13] MEDS: GABAPENTIN 300 MG CAPSULE 600 MG PO ×3 (06:20→21:14)
[2020-02-13 07:27] LABS: Glucose Point of Care 112 (65-105)
[2020-02-13] MEDS: HEPARIN SODIUM 5,000 UNITS/ML VIAL 5000 UNITS SUB-Q ×2 (09:33→21:14)
[2020-02-13] MEDS: ATORVASTATIN 10 MG TABLET PO (09:33)
[2020-02-13] MEDS: BUMETANIDE INJ 2.5 MG/10 ML VIAL 2 MG IV PUSH ×2 (09:33→17:15)
[2020-02-13] MEDS: metOLazone 5 MG TABLET PO (09:34)
[2020-02-13] MEDS: LORATADINE 10 MG TABLET PO (09:34)
[2020-02-13] MEDS: THERAPEUTIC MULTIVITAMINS/MINERALS TAB (*BKC) 1 TABLET PO (09:34)
[2020-02-13] MEDS: amLODIPine BESYLATE 5 MG TABLET PO (09:34)
[2020-02-13] MEDS: carvediloL 25 MG TABLET PO ×2 (09:34→21:14)
[2020-02-13] MEDS: FINASTERIDE 5 MG TABLET PO (09:35)
[2020-02-13] MEDS: PANTOPRAZOLE 40 MG TABLET PO (09:35)
[2020-02-13] MEDS: DOCUSATE SODIUM 100 MG CAPSULE PO ×2 (09:35→21:14)
[2020-02-13] MEDS: IRON SUCROSE COMPLEX 200 MG in SODIUM CHLORIDE 0.9% IV 50 ML 120 MG IVPB (09:35)
--- NOTE | 2020-02-13 10:10 | P.PNNP_ITS ---
Progress Note: A&P Assessment and Plan (1) KENNY (acute kidney injury): Code(s): N17.9 - Acute kidney failure, unspecified Status: Acute Assessment and Plan: * really KENNY or is this just progression of his known CKD?? * creatinine higher than baseline on admission but has not deteriorated further * however, elevated ESR in association with nephrotic proteinuria is concerning * follow-up on pending serologies * consider renal biopsy.... (2) Chronic progressive renal failure, stage 4 (severe): Code(s): N18.4 - Chronic kidney disease, stage 4 (severe) Status: Chronic Assessment and Plan: * baseline creatinine runs around 2.5 - 2.8mg/dl * due to diabetes, hypertension, cardiac + vavlular heart disease (systolic + diastolic heart failure along with aortic stenosis) * we may to accept a higher creatinine in an effort to achieve euvolemia (3) Acute exacerbation of congestive heart failure: Code(s): I50.9 - Heart failure, unspecified Status: Acute Assessment and Plan: * better diuresis in the last 24 - 48 hours * Cardiology following * on diuretics * follow I/Os, respiratory status, daily weights...etc (4) Hypertension: Code(s): I10 - Essential (primary) hypertension Status: Acute Assessment and Plan: * BP seems to be doing better * follow trend with ongoing diuresis (5) Anemia: Code(s): D64.9 - Anemia, unspecified Status: Acute Assessment and Plan: * due to iron deficiency and underlying CKD * getting IV venofer * follow trend of H/H (6) Diabetes: Code(s): E11.9 - Type 2 diabetes mellitus without complications Status: Chronic Assessment and Plan: * on acchecks * on SSI Will continue to follow. Subjective Date/time seen: 02/13/20 10:10 Tolerating diuresis at this time; still has some shortness of breath and significant edema; no acute issues or events voiced at this time; no problems overnight or earlier this AM; no apparent distress. Exam Narrative: Exam Narrative: General: WD/WN male in NAD Heart: normal S1 and S2; no rub Lungs: decreased breath sounds at the bases Abdomen: soft, nontender, nondistended, positive bowel sounds Extremities: no cyanosis or clubbing; 1+ edema Skin: warm and intact Objective Data Vital Signs Vital Signs: Vital Signs Temp Pulse Resp BP Pulse Ox 02/13/20 09:46 97 02/13/20 09:34 75 02/13/20 04:00 76 02/13/20 03:00 36.5 C 87 20 139/98 H 98 02/13/20 00:00 76 02/12/20 23:00 37.1 C 70 22 H 147/62 H 94 02/12/20 21:42 92 02/12/20 20:57 78 02/12/20 20:00 80 16 92 02/12/20 16:00 62 02/12/20 15:34 36.2 C L 74 16 116/51 L 99 02/12/20 14:17 92 02/12/20 14:15 82 L 02/12/20 12:00 71 02/12/20 11:30 36.3 C L 70 18 145/64 H 91 Intake/Output Intake/Output: Intake & Output 02/10/20 02/11/20 02/12/20 02/13/20 23:59 23:59 23:59 23:59 Intake Total 1980 1070 1420 670 Output Total 1375 2450 2280 1000 Balance 605 -1380 -860 -330 Meds/Results Medications: Active Medications Generic Name Dose Route Start Last Admin Trade Name Freq PRN Reason Stop Dose Admin
--- NOTE | 2020-02-13 10:10 | PM.PNNEP ---
Progress Note: A&P Assessment and Plan (1) KENNY (acute kidney injury): Code(s): N17.9 - Acute kidney failure, unspecified Status: Acute Assessment and Plan: really KENNY or is this just progression of his known CKD?? creatinine higher than baseline on admission but has not deteriorated further however, elevated ESR in association with nephrotic proteinuria is concerning follow-up on pending serologies consider renal biopsy.... (2) Chronic progressive renal failure, stage 4 (severe): Code(s): N18.4 - Chronic kidney disease, stage 4 (severe) Status: Chronic Assessment and Plan: baseline creatinine runs around 2.5 - 2.8mg/dl due to diabetes, hypertension, cardiac + vavlular heart disease (systolic + diastolic heart failure along with aortic stenosis) we may to accept a higher creatinine in an effort to achieve euvolemia (3) Acute exacerbation of congestive heart failure: Code(s): I50.9 - Heart failure, unspecified Status: Acute Assessment and Plan: better diuresis in the last 24 - 48 hours Cardiology following on diuretics follow I/Os, respiratory status, daily weights...etc (4) Hypertension: Code(s): I10 - Essential (primary) hypertension Status: Acute Assessment and Plan: BP seems to be doing better follow trend with ongoing diuresis (5) Anemia: Code(s): D64.9 - Anemia, unspecified Status: Acute Assessment and Plan: due to iron deficiency and underlying CKD getting IV venofer follow trend of H/H (6) Diabetes: Code(s): E11.9 - Type 2 diabetes mellitus without complications Status: Chronic Assessment and Plan: on acchecks on SSI Will continue to follow. Subjective Date/time seen: 02/13/20 10:10 Tolerating diuresis at this time; still has some shortness of breath and significant edema; no acute issues or events voiced at this time; no problems overnight or earlier this AM; no apparent distress. Exam Narrative: Exam Narrative: General: WD/WN male in NAD Heart: normal S1 and S2; no rub Lungs: decreased breath sounds at the bases Abdomen: soft, nontender, nondistended, positive bowel sounds Extremities: no cyanosis or clubbing; 1+ edema Skin: warm and intact Objective Data Vital Signs Vital Signs: Vital Signs Temp Pulse Resp BP Pulse Ox 02/13/20 09:46 97 02/13/20 09:34 75 02/13/20 04:00 76 02/13/20 03:00 36.5 C 87 20 139/98 H 98 02/13/20 00:00 76 02/12/20 23:00 37.1 C 70 22 H 147/62 H 94 02/12/20 21:42 92 02/12/20 20:57 78 02/12/20 20:00 80 16 92 02/12/20 16:00 62 02/12/20 15:34 36.2 C L 74 16 116/51 L 99 02/12/20 14:17 92 02/12/20 14:15 82 L 02/12/20 12:00 71 02/12/20 11:30 36.3 C L 70 18 145/64 H 91 Intake/Output Intake/Output: Intake & Output 02/10/20 02/11/20 02/12/20 02/13/20 23:59 23:59 23:59 23:59 Intake Total 1980 1070 1420 670 Output Total 1375 2450 2280 1000 Balance 605 -1380 -860 -330 Meds/Results Medications: Active Medications Generic Name Dose Route Start Last Admin Trade Name Viviane PRN Reason Stop Dose Admin Acetaminophen 650 mg 02/06/20 20:27 02/12/20 21:26 Acetaminophen 325 Mg Tablet PO 650 mg Q12H PRN Administration Pain Amlodipine Besylate 5 mg 02/07/20 09:00 02/13/20 09:34 Amlodipine Besylate 5 Mg Tablet PO 5 mg DAILY TIRSO Administration Atorvastatin Calcium 10 mg 02/07/20 09:00 02/13/20 09:33 Atorvastatin 10 Mg Tablet PO 10 mg DAILY TIRSO Administration Bumetanide 2 mg 02/10/20 17:00 02/13/20 09:33 Bumetanide Inj 2.5 Mg/10 Ml Vial IV PUSH 2 mg BID TIRSO Administration Calcium Carbonate 500 mg 02/09/20 08:00 02/13/20 09:33 Calcium/Vitamin D 500 Mg Tablet PO 500 mg DAILY@0800 TIRSO Administration Carvedilol 25 mg 02/06/20 21:00 02/13/20 09:34 Carvedilol 25 Mg Tablet PO
[2020-02-13 11:38] LABS: Glucose Point of Care 128 (65-105)
--- NOTE | 2020-02-13 11:54 | PCDIET ---
Weekly nutritional screen. Patient is tolerating current diet with adequate intake. No weight loss reported. No nutritional needs at this time.
--- NOTE | 2020-02-13 13:27 | PM.PNCARD ---
Progress Note: A&P Assessment and Plan (1) Acute exacerbation of congestive heart failure: Code(s): I50.9 - Heart failure, unspecified Status: Acute Assessment and Plan: Slowly improving, most prominently with escalation of diuretic therapy to bumetanide 2 mg IV b.i.d. and metolazone 5 mg daily. Creatinine holding, BUN somewhat more elevated. Complicated management. Heart failure with preserved ejection fraction EF 50-55% in setting of moderate to severe aortic stenosis, moderate pulmonary hypertension, CKD stage 4, anemia chronic disease, diabetes mellitus, marginal BP control. - Continue current diuretic regimen. Clinically improving. PT OT. Elevate legs at rest when possible. Lower extremity compression stockings. Fifteen output, daily weight. Counseled not to expect resolution of lower extremity edema but patient still has a significant amount of edema extending to his upper thighs. Monitor electrolytes closely. On the contrary, must avoid significant intravascular volume depletion and/or hypotension due to severity of aortic stenosis. Status for coronary arteries unknown although stress test 2019 with david-infarct ischemia. -PT/OT, DVT prophylaxis. -Anticipate he will require ongoing Bumex at discharge along with Metolazone depending upon the quality of his response. Pt has had recurrent admissions for decompensated HFpEF past couple of months complicated by , CKD, anemia. (2) Aortic stenosis: Onset Date: ~12/2019 Code(s): I35.0 - Nonrheumatic aortic (valve) stenosis Status: Acute Assessment and Plan: Moderate to more likely severe. Discrepant Echo findings, peak AV velocity similar, mean gradient inc from 18 to 30mmHg, STACEY 1.0cm2. Limited options. TAVR an outpatient consideration, defer to Dr. Corado. (3) Chronic progressive renal failure, stage 4 (severe): Code(s): N18.4 - Chronic kidney disease, stage 4 (severe) Status: Chronic Assessment and Plan: As above. Nephrology following. (4) Pulmonary HTN: Code(s): I27.20 - Pulmonary hypertension, unspecified Status: Acute Assessment and Plan: Moderate severity RVSP 53 mm Hg. Increased compared to echo in December 2019. (5) Hypertension: Code(s): I10 - Essential (primary) hypertension Status: Acute Assessment and Plan: Elevated but stable. (6) Anemia: Code(s): D64.9 - Anemia, unspecified Status: Acute Assessment and Plan: Stable this hospitalization. No evidence of active bleed. Most likely consistent with acute on chronic anemia of chronic disease. (7) Thrombocytopenia: Code(s): D69.6 - Thrombocytopenia, unspecified Status: Acute Assessment and Plan: Stable, 135 today. Subjective Date/time seen: date of service: 02/13/20 13:27 Follow-up for decompensated heart failure, aortic stenosis patient being seen in follow-up for Dr. Corado at his request as he is unavailable. patient states he is feeling better. Still notes some exertional dyspnea but is nearing a prior baseline. Still has significant edema. He denies dizziness or lightheadedness. No significant coughing. No chest pain. No new issues overnight. He states his urine output is improving nicely over the past 2 days On Bumex 2 mg IV b.i.d. and metolazone 5 mg daily. Review of Systems Review of Systems: All systems reviewed & are unremarkable except as noted in HPI and below Constitutional: Constitutional: Reports as per HPI, Reports no additional constitutional complaints, Denies difficulty sleeping and Denies fatigue Eyes: Eyes: Reports as per HPI and Reports no additional eye complaints ENT: Reports system reviewed and no additional complaints, except as documented and Reports as per HPI Cardiovascular: Cardiovascular: Reports as per HPI, Reports no additional cardiovascular complaints, Denies chest pain, Reports leg edema, Denies lightheadedness an
[2020-02-13 16:12] LABS: Glucose Point of Care 169 (65-105)
--- NOTE | 2020-02-13 18:43 | PM.IMPN ---
Progress Note: A&P Assessment and Plan (1) Acute respiratory failure with hypoxia: Code(s): J96.01 - Acute respiratory failure with hypoxia Status: Acute Assessment and Plan: Secondary to congestive heart failure. Continue beta-félix and diurese as renal status will allow. Wean O2 as toelrated. (2) Acute exacerbation of congestive heart failure: Code(s): I50.9 - Heart failure, unspecified Status: Acute Assessment and Plan: Echo 12/23 revealed EF of 35% with diastolic dysfunction and moderate to severe with moderate MR. BNP 32K. CXR showing pulmonary edema. Started on diuretics with IV Bumex and po Metolazone per nephrology. Cumulative output -1.8L. Lungs sound better but still on 3L. Repeat CXR. Jamal webb. (3) Chronic progressive renal failure, stage 4 (severe): Code(s): N18.4 - Chronic kidney disease, stage 4 (severe) Status: Chronic Assessment and Plan: Cr was in the mid-2 range in December. Creatinine 3.1 on admission and mostly stable with the diuresis. Renal sonogram showed no hydro but distended bladder and over 600 ml residual so cath placed. No change in Cr since Geiger placed so less likely from obstructive uropathy. Nephrology following and appreciate their input. Renal biopsy being considered with elevated ESR and proteinuria. (4) Aortic stenosis: Onset Date: ~12/2019 Code(s): I35.0 - Nonrheumatic aortic (valve) stenosis Status: Acute Assessment and Plan: Echo showng moderate to severe with 1 cm2 valve area. Further recommendations per cardiology. (5) Chronic anemia: Code(s): D64.9 - Anemia, unspecified Status: Acute Assessment and Plan: Patient with chronic anemia mostly in the 10-11 when well. Hgb has dropped into the 9 range and stable. Iron deficiency componenet as well. IV iron added. Continue to follow. (6) Hypertension: Code(s): I10 - Essential (primary) hypertension Status: Acute Assessment and Plan: Patient's blood pressure was reviewed on 02/12 Blood pressure mostly well controlled. Will continue current medications with Norvasc, Coreg. (7) Type 2 diabetes mellitus with peripheral neuropathy: Code(s): E11.42 - Type 2 diabetes mellitus with diabetic polyneuropathy Status: Acute Assessment and Plan: Last A1c 5.6 in June. The patient's blood glucose was reviewed on 02/12 Glucose remains well controlled. Continue to monitor with AccuCheks covering with sliding scale. Hypoglycemia protocol available as needed. Continue current treatment plan.. (8) Benign prostatic hyperplasia: Code(s): N40.0 - Benign prostatic hyperplasia without lower urinary tract symptoms Status: Acute Assessment and Plan: BPH with urine retention. Continue finasteride and tamsulosin. Continue geiger for now but will need follow up with urologist for voiding trial. This was discussed with Dr Coelho and the patient will see him as outpt (9) DVT prophylaxis: Code(s): Z29.9 - Encounter for prophylactic measures, unspecified Status: Acute Assessment and Plan: heparin subcu with stage IV renal failure Subjective Date/time seen: 02/13/20 18:43 Interval history: Date of visit 02/12 84yo male with known aortic and mitral disease, systolic and diastolic heart failure abd CKD admitted with increasing shortness breath and edema. Urine retention and geiger placed pm 11/4 with >600ml residual. Assuming care. Chart reviewed. Feels 'really good'. Slept well. SOB much better, No Cp or abd pain. Not on home O2. Exam Narrative: Exam Narrative: AF 98.4 153/67 73 16 98% 3L Gen - NARD Chest - a few bibasilar inspiratory crackles otherwise distant BS, nml RR CV - RRR S1/S2 with 3/6 systolic murmur loudest RUSB Abd - Soft, NT/ND, Positive BS - Geiger secured draining clear yellow urine Ext - trace-1+ pedal ed
[2020-02-13] MEDS: VITAMIN B COMPLEX CAPSULE 1 CAP PO (21:14)
[2020-02-13] MEDS: TAMSULOSIN HCL 0.4 MG CAPSULE PO (21:14)
[2020-02-13 22:59] LABS: Glucose Point of Care 231 (65-105)
[2020-02-14] VITALS (10 sets, daily range): BP systolic 144–177; BP diastolic 62–71; PULSE 64–80; RESP 18–24; TEMP 36.3–37.1; O2SAT 90–93
[2020-02-14] MEDS: GABAPENTIN 300 MG CAPSULE 600 MG PO ×3 (05:16→21:07)
[2020-02-14 05:31] LABS: Basophils Percent Auto 0.3 % (0.2-1.2); Eosinophils Absolute Auto 0.2 K/mm3 (0-0.3); Eosinophils Percent Auto 3.4 % (0-4.4); Hematocrit 28.2 % (42.0-52.0); Hemoglobin 9.3 g/dL (14.0-18.0); Immature Granulocyte Absolute 0.07 K/mm3 (0.00-0.031); Lymphocytes Absolute Auto 0.71 K/mm3 (0.9-3.2); Mean Corpuscular Hemoglobin 31.7 pg (26-34); Mean Corpuscular Volume 96.2 fl (80-100); Monocytes Percent Auto 13.7 % (2.6-8.5); Neutrophils Absolute Auto 5.1 K/mm3 (1.3-6.7); Neutrophils Percent Auto 71.6 % (45.5-73.1); Platelet Count Result 136 k/mm3 (150-375); Red Blood Count 2.93 M/mm3 (4.6-6.20); Red Cell Distribution Width 14.1 % (11.5-14.5); White Blood Count 7.1 K/mm3 (4.5-10.0)
[2020-02-14 05:46] LABS: Alanine Aminotransferase 7 U/L (4-50); Albumin Level 3.2 g/dL (3.5-5.1); Alkaline Phosphatase 45 U/L (38-126); Anion Gap 8 mmol/L (8-16); Aspartate Amino Transferase 14 U/L (17-59); Bilirubin,Total 0.4 mg/dL (0.2-1.3); Blood Urea Nitrogen 87 mg/dL (9-20); Calcium 8.4 mg/dL (8.4-10.2); Carbon Dioxide 32 mmol/L (22-30); Chloride 95 mmol/L (98-107); Estimated CRCL calculation 20 ml/min; Estimated Glomerular Filt Rate 17; Glucose 125 mg/dL (75-110); Magnesium 2.7 mg/dL (1.6-2.3); Phosphorus 4.3 mg/dL (2.5-4.5); Potassium 3.8 mmol/L (3.4-5.0); Sodium 135 mmol/L (137-145)
[2020-02-14 07:39] LABS: Glucose Point of Care 119 (65-105)
[2020-02-14 07:44] LABS: Kappa\\Lambda Light Chains 1.36 (0.26-1.65); Lambda Light Chain 38.3 mg/L (5.7-26.3)
[2020-02-14 07:45] LABS: Complement Total CH50 >60 U/mL (31-60)
[2020-02-14] MEDS: amLODIPine BESYLATE 5 MG TABLET PO (09:12)
[2020-02-14] MEDS: LORATADINE 10 MG TABLET PO (09:13)
[2020-02-14] MEDS: FINASTERIDE 5 MG TABLET PO (09:13)
[2020-02-14] MEDS: PANTOPRAZOLE 40 MG TABLET PO (09:13)
[2020-02-14] MEDS: ATORVASTATIN 10 MG TABLET PO (09:13)
[2020-02-14] MEDS: metOLazone 5 MG TABLET PO (09:13)
[2020-02-14] MEDS: IRON SUCROSE COMPLEX 200 MG in SODIUM CHLORIDE 0.9% IV 50 ML 120 MG IVPB (09:13)
[2020-02-14] MEDS: carvediloL 25 MG TABLET PO ×2 (09:13→20:53)
[2020-02-14] MEDS: THERAPEUTIC MULTIVITAMINS/MINERALS TAB (*BKC) 1 TABLET PO (09:13)
[2020-02-14] MEDS: BUMETANIDE INJ 2.5 MG/10 ML VIAL 2 MG IV PUSH ×2 (09:14→16:53)
[2020-02-14] MEDS: DOCUSATE SODIUM 100 MG CAPSULE PO ×2 (09:16→20:53)
--- NOTE | 2020-02-14 09:32 | PM.PNCARD ---
Progress Note: A&P Additional Plan 84-year-old patient with: Decompensated left-sided congestive heart failure due to the combination of aortic valve stenosis, LV systolic dysfunction and stage 4 chronic kidney disease. Management is quite challenging given the fact that he is requiring high doses of Bumex along with metolazone to achieve a negative fluid balance. That having been said he is feeling better and improving clinically. By physical exam he certainly sounds like he has significant/severe aortic valve stenosis although Dr. Corado's echocardiographic findings do not suggest that this is the case. The patient will be followed with you and turned over to his management when he returns. Sanchez King MD [facility] Subjective Date/time seen: Date of service:02/14/20 09:32 Interval history: Follow-up visit in this 84-year-old man with congestive heart failure related to aortic valve stenosis, left ventricular systolic dysfunction and stage 4 chronic kidney disease. Exam Const: General: comfortable and no acute distress HENMT: Mouth: Yes moist mucous membranes Eyes: Sclera: sclerae normal Pupils: Equal, round and reactive pupils present Neck: Neck: supple and no JVD Thyroid: thyroid normal Other: Transmitted systolic murmur to the carotids Resp: Effort & Inspection: normal respiratory effort Other: breath sounds diminished at the bases bilaterally Cardio: Rate: regular rate Rhythm: regular rhythm Other: high-pitched late-peaking grade 3/6 crescendo decrescendo murmur audible at the base. No diastolic murmur GI: GI Palp: Yes Soft to palpation Auscultation: normal bowel sounds Skin: General skin exam: normal color Neuro: Cognition (Neuro): normal cognition Extrem: General: normal to inspection Objective Data Vital Signs Vital Signs: Vital Signs - 24 hr 02/13/20 09:34 02/13/20 09:46 02/13/20 10:00 Temperature 36.6 C Pulse Rate 75 62 Respiratory Rate 16 Blood Pressure 139/63 Pulse Oximetry 97 99 02/13/20 12:00 02/13/20 14:00 02/13/20 16:00 Temperature 36.7 C Pulse Rate 65 67 75 Respiratory Rate 16 Blood Pressure 131/53 L Pulse Oximetry 99 02/13/20 18:00 02/13/20 20:00 02/13/20 21:14 Temperature 36.9 C Pulse Rate 73 75 72 Respiratory Rate 16 Blood Pressure 153/67 H Pulse Oximetry 98 97 02/13/20 22:00 02/14/20 00:00 02/14/20 02:00 Temperature 37.3 C 36.8 C Pulse Rate 73 69 69 Respiratory Rate 22 H 18 Blood Pressure 154/64 H 147/62 H Pulse Oximetry 94 90 02/14/20 04:00 02/14/20 05:57 02/14/20 09:13 Temperature 37.1 C Pulse Rate 67 64 64 Respiratory Rate 22 H Blood Pressure 145/71 H Pulse Oximetry 90 Intake/Output Intake/Output: Intake & Output 02/11/20 02/12/20 02/13/20 02/14/20 23:59 23:59 23:59 23:59 Intake Total 1070 1420 1910 430 Output Total 2450 2280 2227 1000 [facility] -1380 -860 -315 -570 Meds/Results Medications: Active Medications Generic Name Dose Route Start Last Admin Trade Name Freq PRN Reason Stop Dose Admin Acetaminophen 650 mg 02/06/20 20:27 02/12/20 21:26 Acetaminophen 325 Mg Tablet PO 650 mg Q12H PRN Administration Pain Amlodipine Besylate 5 mg 02/07/20 09:00 02/14/20 09:12 Amlodipine Besylate 5 Mg Tablet PO 5 mg DAILY TIRSO Administration Atorvastatin Calcium 10 mg 02/07/20 09:00 02/14/20 09:13 Atorvastatin 10 Mg Tablet PO 10 mg DAILY TIRSO Administration Bumetanide 2 mg 02/10/20 17:00 02/14/20 09:14 Bumetanide Inj 2.5 Mg/10 Ml Vial IV PUSH 2 mg BID TIRSO Administration Calcium Carbonate 500 mg 02/09/20 08:00 02/14/20 09:12 Calcium/Vitamin D 500 Mg Tablet PO 500 mg DAILY@0800 TIRSO Administration Carvedilol 25 mg 02/06/20 21:00 02/14/20 09:13 Carvedilol 25 Mg Tablet PO 25 mg Q12HR TIRSO Administration Dextrose 12.5 gm 02/06/20 21:23 Dextrose 50% 25 Gm/50 Ml Syringe IV PUSH PRN PRN Hypoglycemia Protocol
[2020-02-14] MEDS: HEPARIN SODIUM 5,000 UNITS/ML VIAL 5000 UNITS SUB-Q ×2 (09:35→20:53)
[2020-02-14 11:48] LABS: Glucose Point of Care 167 (65-105)
--- NOTE | 2020-02-14 14:26 | PM.IMPN ---
Progress Note: A&P Assessment and Plan (1) Acute respiratory failure with hypoxia: Code(s): J96.01 - Acute respiratory failure with hypoxia Status: Acute Assessment and Plan: Secondary to congestive heart failure. Continue beta-félix and diurese as renal status will allow. Wean O2 as toelrated. (2) Acute exacerbation of congestive heart failure: Code(s): I50.9 - Heart failure, unspecified Status: Acute Assessment and Plan: Echo here revealed EF of 55% with diastolic dysfunction Grade I and moderate to severe with moderate MR. BNP 32K. CXR showing pulmonary edema. Started on diuretics with IV Bumex and po Metolazone per nephrology. Cumulative output -2.3L. Lungs sound better but still on 3L and CXR looks about the same or worse. Continue Jamal hose. Check for COVID. (3) Chronic progressive renal failure, stage 4 (severe): Code(s): N18.4 - Chronic kidney disease, stage 4 (severe) Status: Chronic Assessment and Plan: Cr was in the mid-2 range in December. Creatinine 3.1 on admission and mostly stable with the diuresis. Renal sonogram showed no hydro but distended bladder and over 600 ml residual so cath placed. No change in Cr since Geiger placed so less likely from obstructive uropathy. Nephrology following and appreciate their input. Renal biopsy being considered with elevated ESR and proteinuria. (4) Aortic stenosis: Onset Date: ~12/2019 Code(s): I35.0 - Nonrheumatic aortic (valve) stenosis Status: Acute Assessment and Plan: Echo showng moderate to severe with 1 cm2 valve area. Further recommendations per cardiology. (5) Chronic anemia: Code(s): D64.9 - Anemia, unspecified Status: Acute Assessment and Plan: Patient with chronic anemia mostly in the 10-11 when well. Hgb has dropped into the 9 range and stable. Iron deficiency component as well. Continue IV iron. Continue to follow. (6) Hypertension: Code(s): I10 - Essential (primary) hypertension Status: Acute Assessment and Plan: Patient's blood pressure was reviewed on 02/13 Blood pressure more elevated now. Will continue current medications with Norvasc, Coreg. Add Hydralazine back. (7) Type 2 diabetes mellitus with peripheral neuropathy: Code(s): E11.42 - Type 2 diabetes mellitus with diabetic polyneuropathy Status: Acute Assessment and Plan: Last A1c 5.6 in June. The patient's blood glucose was reviewed on 02/13 Glucose remains well controlled. Continue to monitor with AccuCheks covering with sliding scale. Hypoglycemia protocol available as needed. Continue current treatment plan.. (8) Benign prostatic hyperplasia: Code(s): N40.0 - Benign prostatic hyperplasia without lower urinary tract symptoms Status: Acute Assessment and Plan: BPH with urine retention. Continue finasteride and tamsulosin. Continue geiger for now but will need follow up with urologist for voiding trial. This was discussed with Dr Coelho and the patient will see him as outpt. (9) DVT prophylaxis: Code(s): Z29.9 - Encounter for prophylactic measures, unspecified Status: Acute Assessment and Plan: heparin subcu with stage IV renal failure Subjective Date/time seen: 02/14/20 14:26 Interval history: Date of visit 02/13 84yo male with known aortic and mitral disease, systolic and diastolic heart failure abd CKD admitted with increasing shortness breath and edema. Urine retention and geiger placed pm 11/4 with >600ml residual. Patient has been up walking to the bathroom and sitting in the chair. Shortness of breath is much improved. Denies chest pain. No nausea, vomiting or diarrhea. No anosmia or dysgeusia. No odynophagia or dysphagia. No cough. Exam Narrative: Exam Narrative: AF 97.4 177/69 76 18 92% 3L Gen - NARD sitting up in bed finisihing lunch Chest
[2020-02-14] MEDS: hydrALAZINE HCL 25 MG TABLET PO (16:53)
--- NOTE | 2020-02-14 16:55 | P.PNNP_ITS ---
Progress Note: A&P Assessment and Plan (1) KENNY (acute kidney injury): Code(s): N17.9 - Acute kidney failure, unspecified Status: Acute Assessment and Plan: * is this really KENNY or is this just progression of his known CKD?? * creatinine higher than baseline on admission AND now is starting to rise due to the need for high dose diuretic therapy * however, elevated ESR in association with nephrotic proteinuria is concerning * follow-up on pending serologies * consider renal biopsy.... (2) Chronic progressive renal failure, stage 4 (severe): Code(s): N18.4 - Chronic kidney disease, stage 4 (severe) Status: Chronic Assessment and Plan: * baseline creatinine runs around 2.5 - 2.8mg/dl * due to diabetes, hypertension, cardiac + vavlular heart disease (systolic + diastolic heart failure along with aortic stenosis) * we may to accept a higher creatinine in an effort to achieve euvolemia (3) Acute exacerbation of congestive heart failure: Code(s): I50.9 - Heart failure, unspecified Status: Acute Assessment and Plan: * diuresis noted * Cardiology following * on diuretics * follow I/Os, respiratory status, daily weights...etc (4) Hypertension: Code(s): I10 - Essential (primary) hypertension Status: Acute Assessment and Plan: * BP seems to be doing better * follow trend with ongoing diuresis (5) Anemia: Code(s): D64.9 - Anemia, unspecified Status: Acute Assessment and Plan: * due to iron deficiency and underlying CKD * getting IV venofer * follow trend of H/H (6) Diabetes: Code(s): E11.9 - Type 2 diabetes mellitus without complications Status: Chronic Assessment and Plan: * on acchecks * on SSI Will continue to follow. Subjective Date/time seen: 02/14/20 16:55 Shortness of breath seems to be slowly improving with current therapy; however, his BUN and creatinine are slowly starting to rise; no apparent distress noted; no events overnight or earlier this AM. Exam Narrative: Exam Narrative: General: WD/WN male in NAD Heart: normal S1 and S2; no rub Lungs: decreased breath sounds at the bases Abdomen: soft, nontender, nondistended, positive bowel sounds Extremities: no cyanosis or clubbing; 1+ edema Skin: no rash or nodules Objective Data Vital Signs Vital Signs: Vital Signs Temp Pulse Resp BP Pulse Ox 02/14/20 10:00 36.3 C L 76 18 177/69 H 92 02/14/20 09:41 93 02/14/20 09:13 64 02/14/20 08:00 65 02/14/20 05:57 37.1 C 64 22 H 145/71 H 90 02/14/20 04:00 67 02/14/20 02:00 36.8 C 69 18 147/62 H 90 02/14/20 00:00 69 02/13/20 22:00 37.3 C 73 22 H 154/64 H 94 02/13/20 21:14 72 02/13/20 20:00 75 97 02/13/20 18:00 36.9 C 73 16 153/67 H 98 Intake/Output Intake/Output: Intake & Output 02/11/20 02/12/20 02/13/20 02/14/20 23:59 23:59 23:59 23:59 Intake Total 1070 1420 1910 730 Output Total 2450 2280 2225 1000 [facility] -1380 -860 -315 -270 Meds/Results Medications: Active Medications Generic Name Dose Route Start Last Admin Trade Name Freq PRN Reason Stop Dose Admin Acetaminophen 650 mg 02/06/20 20:27 02/12/20 21:26
--- NOTE | 2020-02-14 16:55 | PM.PNNEP ---
Progress Note: A&P Assessment and Plan (1) KENNY (acute kidney injury): Code(s): N17.9 - Acute kidney failure, unspecified Status: Acute Assessment and Plan: is this really KENNY or is this just progression of his known CKD?? creatinine higher than baseline on admission AND now is starting to rise due to the need for high dose diuretic therapy however, elevated ESR in association with nephrotic proteinuria is concerning follow-up on pending serologies consider renal biopsy.... (2) Chronic progressive renal failure, stage 4 (severe): Code(s): N18.4 - Chronic kidney disease, stage 4 (severe) Status: Chronic Assessment and Plan: baseline creatinine runs around 2.5 - 2.8mg/dl due to diabetes, hypertension, cardiac + vavlular heart disease (systolic + diastolic heart failure along with aortic stenosis) we may to accept a higher creatinine in an effort to achieve euvolemia (3) Acute exacerbation of congestive heart failure: Code(s): I50.9 - Heart failure, unspecified Status: Acute Assessment and Plan: diuresis noted Cardiology following on diuretics follow I/Os, respiratory status, daily weights...etc (4) Hypertension: Code(s): I10 - Essential (primary) hypertension Status: Acute Assessment and Plan: BP seems to be doing better follow trend with ongoing diuresis (5) Anemia: Code(s): D64.9 - Anemia, unspecified Status: Acute Assessment and Plan: due to iron deficiency and underlying CKD getting IV venofer follow trend of H/H (6) Diabetes: Code(s): E11.9 - Type 2 diabetes mellitus without complications Status: Chronic Assessment and Plan: on acchecks on SSI Will continue to follow. Subjective Date/time seen: 02/14/20 16:55 Shortness of breath seems to be slowly improving with current therapy; however, his BUN and creatinine are slowly starting to rise; no apparent distress noted; no events overnight or earlier this AM. Exam Narrative: Exam Narrative: General: WD/WN male in NAD Heart: normal S1 and S2; no rub Lungs: decreased breath sounds at the bases Abdomen: soft, nontender, nondistended, positive bowel sounds Extremities: no cyanosis or clubbing; 1+ edema Skin: no rash or nodules Objective Data Vital Signs Vital Signs: Vital Signs Temp Pulse Resp BP Pulse Ox 02/14/20 10:00 36.3 C L 76 18 177/69 H 92 02/14/20 09:41 93 02/14/20 09:13 64 02/14/20 08:00 65 02/14/20 05:57 37.1 C 64 22 H 145/71 H 90 02/14/20 04:00 67 02/14/20 02:00 36.8 C 69 18 147/62 H 90 02/14/20 00:00 69 02/13/20 22:00 37.3 C 73 22 H 154/64 H 94 02/13/20 21:14 72 02/13/20 20:00 75 97 02/13/20 18:00 36.9 C 73 16 153/67 H 98 Intake/Output Intake/Output: Intake & Output 02/11/20 02/12/20 02/13/20 02/14/20 23:59 23:59 23:59 23:59 Intake Total 1070 1420 1910 730 Output Total 2450 2280 2225 1000 Balance -1410 -860 -315 -270 Meds/Results Medications: Active Medications Generic Name Dose Route Start Last Admin Trade Name Viviane PRN Reason Stop Dose Admin Acetaminophen 650 mg 02/06/20 20:27 02/12/20 21:26 Acetaminophen 325 Mg Tablet PO 650 mg Q12H PRN Administration Pain Amlodipine Besylate 5 mg 02/07/20 09:00 02/14/20 09:12 Amlodipine Besylate 5 Mg Tablet PO 5 mg DAILY TIRSO Administration Atorvastatin Calcium 10 mg 02/07/20 09:00 02/14/20 09:13 Atorvastatin 10 Mg Tablet PO 10 mg DAILY TIRSO Administration Bumetanide 2 mg 02/10/20 17:00 02/14/20 16:53 Bumetanide Inj 2.5 Mg/10 Ml Vial IV PUSH 2 mg BID TIRSO Administration Calcium Carbonate 500 mg 02/09/20 08:00 02/14/20 09:12 Calcium/Vitamin D 500 Mg Tablet PO 500 mg DAILY@0800 TIRSO Administration Carvedilol 25 mg 02/06/20 21:00 02/14/20 09:13 Carvedilol 25 Mg Tablet PO 25 mg Q12HR TIRSO Administra
[2020-02-14 17:09] LABS: Glucose Point of Care 195 (65-105)
--- NOTE | 2020-02-14 17:13 | PC.NURSE ---
This patient, Dell Leon , was received from [facility] on 02/14/20 at 1713. Patient/family oriented to unit policies and routines
[2020-02-14] MEDS: TAMSULOSIN HCL 0.4 MG CAPSULE PO (20:58)
[2020-02-14] MEDS: VITAMIN B COMPLEX CAPSULE 1 CAP PO (20:59)
[2020-02-14 21:40] LABS: Glucose Point of Care 192 (65-105)
[2020-02-15] VITALS (10 sets, daily range): BP systolic 98–160; BP diastolic 42–69; PULSE 62–80; RESP 14–22; TEMP 36.5–36.9; O2SAT 80–97
[2020-02-15 06:31] LABS: Hematocrit 29.3 % (42.0-52.0); Hemoglobin 9.8 g/dL (14.0-18.0); Mean Corpuscular HGB Conc 33.4 g/dl (32-36); Mean Corpuscular Hemoglobin 31.9 pg (26-34); Mean Corpuscular Volume 95.4 fl (80-100); Mean Platelet Volume 11.2 fl (7.4-10.4); Platelet Count Result 157 k/mm3 (150-375); Red Blood Count 3.07 M/mm3 (4.6-6.20); Red Cell Distribution Width 14.4 % (11.5-14.5); White Blood Count 9.2 K/mm3 (4.5-10.0)
[2020-02-15 06:35] LABS: Alanine Aminotransferase 8 U/L (4-50); Albumin Level 3.2 g/dL (3.5-5.1); Alkaline Phosphatase 49 U/L (38-126); Anion Gap 5 mmol/L (8-16); Aspartate Amino Transferase 14 U/L (17-59); Bilirubin,Total 0.6 mg/dL (0.2-1.3); Blood Urea Nitrogen 87 mg/dL (9-20); CRP 4.2 mg/dL (<1.0); Calcium 8.8 mg/dL (8.4-10.2); Carbon Dioxide 34 mmol/L (22-30); Chloride 94 mmol/L (98-107); Estimated CRCL calculation 20 ml/min; Estimated Glomerular Filt Rate 16; Glucose 158 mg/dL (75-110); Lactate Dehydrogenase 401 U/L (313-618); Magnesium 2.8 mg/dL (1.6-2.3); Phosphorus 4.4 mg/dL (2.5-4.5); Potassium 3.9 mmol/L (3.4-5.0); Sodium 133 mmol/L (137-145)
[2020-02-15] MEDS: GABAPENTIN 300 MG CAPSULE 600 MG PO ×3 (06:56→20:40)
[2020-02-15] MEDS: carvediloL 25 MG TABLET PO ×2 (08:42→20:40)
[2020-02-15] MEDS: DOCUSATE SODIUM 100 MG CAPSULE PO ×2 (08:42→20:40)
[2020-02-15] MEDS: hydrALAZINE HCL 25 MG TABLET PO ×3 (08:42→17:52)
[2020-02-15] MEDS: THERAPEUTIC MULTIVITAMINS/MINERALS TAB (*BKC) 1 TABLET PO (08:43)
[2020-02-15] MEDS: amLODIPine BESYLATE 5 MG TABLET PO (08:43)
[2020-02-15] MEDS: FINASTERIDE 5 MG TABLET PO (08:43)
[2020-02-15] MEDS: PANTOPRAZOLE 40 MG TABLET PO (08:43)
[2020-02-15] MEDS: LORATADINE 10 MG TABLET PO (08:44)
[2020-02-15] MEDS: HEPARIN SODIUM 5,000 UNITS/ML VIAL 5000 UNITS SUB-Q ×2 (08:44→20:42)
[2020-02-15] MEDS: ATORVASTATIN 10 MG TABLET PO (08:44)
[2020-02-15] MEDS: metOLazone 5 MG TABLET PO (08:44)
[2020-02-15] MEDS: BUMETANIDE INJ 2.5 MG/10 ML VIAL 2 MG IV PUSH ×2 (08:45→17:51)
[2020-02-15] MEDS: IRON SUCROSE COMPLEX 200 MG in SODIUM CHLORIDE 0.9% IV 50 ML 120 MG IVPB (08:45)
--- NOTE | 2020-02-15 12:07 | PCSTNOTE ---
Modified Barium Swallow study on hold until results of COVID test are negative. Nursing notified.
[2020-02-15 12:53] LABS: Glucose Point of Care 159 (65-105)
--- NOTE | 2020-02-15 13:57 | PM.IMPN ---
Progress Note: A&P Assessment and Plan (1) Acute respiratory failure with hypoxia: Code(s): J96.01 - Acute respiratory failure with hypoxia Status: Acute Assessment and Plan: Secondary to congestive heart failure. Continue beta-félix and diurese as renal status will allow. Wean O2 as toelrated. COVID test pending. (2) Acute exacerbation of congestive heart failure: Code(s): I50.9 - Heart failure, unspecified Status: Acute Assessment and Plan: Echo here revealed EF of 55% with diastolic dysfunction Grade I and moderate to severe with moderate MR. BNP 32K. CXR showing pulmonary edema. Started on diuretics with IV Bumex and po Metolazone per nephrology. Cumulative output -3.7L. Lungs sound better but still on 3L and CXR yesterday looks about the same or worse. Continue Jamal hose. COVID test is pending. (3) Chronic progressive renal failure, stage 4 (severe): Code(s): N18.4 - Chronic kidney disease, stage 4 (severe) Status: Chronic Assessment and Plan: Cr was in the mid-2 range in December. Creatinine 3.1 on admission and increased to 3.3 the next day. Cr running 3.3-3.5 range since but now 3.6 this morning. Renal sonogram showed no hydro but distended bladder and over 600 ml residual so cath placed. No change in Cr since Geiger placed so less likely from obstructive uropathy. Nephrology following and appreciate their input. Renal biopsy being considered with elevated ESR and proteinuria. (4) Aortic stenosis: Onset Date: ~12/2019 Code(s): I35.0 - Nonrheumatic aortic (valve) stenosis Status: Acute Assessment and Plan: Echo showng moderate to severe with 1 cm2 valve area. Further recommendations per cardiology. (5) Chronic anemia: Code(s): D64.9 - Anemia, unspecified Status: Acute Assessment and Plan: Patient with chronic anemia mostly in the 10-11 when well. Hgb has dropped into the 9 range and stable. [place] anemia of chronic disease with iron deficiency component as well. Continue IV iron. Continue to follow. (6) Hypertension: Code(s): I10 - Essential (primary) hypertension Status: Acute Assessment and Plan: Patient's blood pressure was reviewed on 02/14 Blood pressure better controlled now. Will continue current medications with Norvasc, Coreg and Hydralazine. (7) Type 2 diabetes mellitus with peripheral neuropathy: Code(s): E11.42 - Type 2 diabetes mellitus with diabetic polyneuropathy Status: Acute Assessment and Plan: Last A1c 5.6 in June. The patient's blood glucose was reviewed on 02/14 Glucose remains reasonably well controlled. Continue to monitor with AccuCheks covering with sliding scale. Hypoglycemia protocol available as needed. Continue current treatment plan.. (8) Benign prostatic hyperplasia: Code(s): N40.0 - Benign prostatic hyperplasia without lower urinary tract symptoms Status: Acute Assessment and Plan: BPH with urine retention. Continue finasteride and tamsulosin. Continue geiger for now but will need follow up with urologist for voiding trial. This was discussed with Dr Coelho and the patient will see him as outpt. (9) DVT prophylaxis: Code(s): Z29.9 - Encounter for prophylactic measures, unspecified Status: Acute Assessment and Plan: heparin subcu with stage IV renal failure Subjective Date/time seen: 02/15/20 13:57 Interval history: Date of visit 02/14 84yo male with known aortic and mitral disease, systolic and diastolic heart failure abd CKD admitted with increasing shortness breath and edema. Urine retention and geiger placed pm 11/4 with >600ml residual. RN states patient had an episode where he became SOB and coughing when taking his pills this morning. He denies feeling SOB. Denies cough, CP or diarhea. Decreased appetite. Exam Narrative: Exam Narrative:
--- NOTE | 2020-02-15 15:56 | PM.PNCARD ---
Progress Note: A&P Assessment and Plan (1) Acute exacerbation of congestive heart failure: Code(s): I50.9 - Heart failure, unspecified Status: Acute Assessment and Plan: Slowly improving, most prominently with escalation of diuretic therapy to bumetanide 2 mg IV b.i.d. and metolazone 5 mg daily. Creatinine holding, BUN somewhat more elevated. Complicated management. Heart failure with preserved ejection fraction EF 50-55% in setting of moderate to severe aortic stenosis, moderate pulmonary hypertension, CKD stage 4, anemia chronic disease, diabetes mellitus, marginal BP control. - Continue current diuretic regimen. Clinically improving. PT OT. Elevate legs at rest when possible. Lower extremity compression stockings. I&O, daily weight. Avoid significant intravascular volume depletion and/or hypotension due to severity of aortic stenosis. -CXR very concerning suggestive of impending ARDS suspicious for COVID given circumstances as his respiratory decline does not appear to be secondary to abrupt worsening of CHF as sole explanation. Agree with COVID workup which is pending. (2) Aortic stenosis: Onset Date: ~12/2019 Code(s): I35.0 - Nonrheumatic aortic (valve) stenosis Status: Acute Assessment and Plan: Moderate to more likely severe. Discrepant Echo findings, peak AV velocity similar, mean gradient inc from 18 to 30mmHg, STACEY 1.0cm2. Limited options. TAVR an outpatient consideration, defer to Dr. Corado. (3) Chronic progressive renal failure, stage 4 (severe): Code(s): N18.4 - Chronic kidney disease, stage 4 (severe) Status: Chronic Assessment and Plan: As above. Nephrology following. (4) Pulmonary HTN: Code(s): I27.20 - Pulmonary hypertension, unspecified Status: Acute Assessment and Plan: Moderate severity RVSP 53 mm Hg. Increased compared to echo in December 2019. (5) Hypertension: Code(s): I10 - Essential (primary) hypertension Status: Acute Assessment and Plan: Elevated but stable. (6) Anemia: Code(s): D64.9 - Anemia, unspecified Status: Acute Assessment and Plan: Stable (7) Thrombocytopenia: Code(s): D69.6 - Thrombocytopenia, unspecified Status: Acute Assessment and Plan: stable. Subjective Date/time seen: Date of service:02/15/20 15:56 Interval history: Follow-up visit in this 84-year-old man with congestive heart failure related to aortic valve stenosis, left ventricular systolic dysfunction and stage 4 chronic kidney disease. Patient states he feels okay and denies feeling more short of breath. Despite all this, patient has become more hypoxic requiring increased O2 supplementation. CXR with noted progression of bilateral infiltrates. patient transferred to isolation quach, COVID-19 pending. The above despite ongoing adequate response to diuresis, reduction in edema. Patient denies chest pain, fevers. Review of Systems Review of Systems: All systems reviewed & are unremarkable except as noted in HPI and below Constitutional: Constitutional: Reports as per HPI, Reports no additional constitutional complaints, Denies difficulty sleeping and Denies fatigue Eyes: Eyes: Reports as per HPI and Reports no additional eye complaints ENT: Reports system reviewed and no additional complaints, except as documented and Reports as per HPI Cardiovascular: Cardiovascular: Reports as per HPI, Reports no additional cardiovascular complaints, Denies chest pain, Reports leg edema, Denies lightheadedness, Denies palpitations, Denies dyspnea and Reports dyspnea on exertion Respiratory: Respiratory: Reports as per HPI, Reports no additional respiratory complaints, Denies hemoptysis, Denies dyspnea, Reports dyspnea on exertion and Denies wheezing Gastrointestinal: Gastrointestinal: Reports as per HPI and Reports no additional gastrointestinal complaints Genitourinary: Genit
--- NOTE | 2020-02-15 17:34 | PM.PNNEP ---
Progress Note: A&P Assessment and Plan (1) KENNY (acute kidney injury): Code(s): N17.9 - Acute kidney failure, unspecified Status: Acute Assessment and Plan: is this really KENNY or is this just progression of his known CKD?? creatinine higher than baseline on admission AND now is starting to rise due to the need for high dose diuretic therapy however, elevated ESR in association with nephrotic proteinuria is concerning follow-up on pending serologies and consider renal biopsy.... more concerning that BUN and creatinine continue to rise -- if diuretics alone are not able to achieve euvolemia and given CKD at baseline, may need to consider [facility]/dialysis (2) Chronic progressive renal failure, stage 4 (severe): Code(s): N18.4 - Chronic kidney disease, stage 4 (severe) Status: Chronic Assessment and Plan: baseline creatinine runs around 2.5 - 2.8mg/dl due to diabetes, hypertension, cardiac + vavlular heart disease (systolic + diastolic heart failure along with aortic stenosis) we may to accept a higher creatinine in an effort to achieve euvolemia (3) Acute exacerbation of congestive heart failure: Code(s): I50.9 - Heart failure, unspecified Status: Acute Assessment and Plan: diuresis noted Cardiology following on diuretics follow I/Os, respiratory status, daily weights...etc (4) Hypertension: Code(s): I10 - Essential (primary) hypertension Status: Acute Assessment and Plan: BP seems to be doing better follow trend with ongoing diuresis (5) Anemia: Code(s): D64.9 - Anemia, unspecified Status: Acute Assessment and Plan: due to iron deficiency and underlying CKD s/p course of IV venofer follow trend of H/H (6) Diabetes: Code(s): E11.9 - Type 2 diabetes mellitus without complications Status: Chronic Assessment and Plan: on acchecks on SSI Will continue to follow. Subjective Date/time seen: 02/15/20 17:34 Despite ongoing therapy to date, CXR seems the same with the concern for possible COVID-19 infection so further testing being done for this evaluation/concern; BUN and creatinine starting to slowly rise; no acute distress at the time of my visit; no events overnight or earlier this AM. Exam Narrative: Exam Narrative: General: WD/WN male in NAD Heart: normal S1 and S2; no rub Lungs: decreased breath sounds at the bases Abdomen: soft, nontender, nondistended, positive bowel sounds Extremities: no cyanosis or clubbing; 1+ edema Skin: warm and dry Objective Data Vital Signs Vital Signs: Vital Signs Temp Pulse Resp BP Pulse Ox 02/15/20 16:00 36.9 C 75 14 123/56 L 97 02/15/20 12:00 36.7 C 62 18 124/58 L 80 L 02/15/20 10:45 95 02/15/20 08:42 72 02/15/20 08:00 36.8 C 75 16 98/43 L 94 02/15/20 04:00 36.7 C 67 20 139/69 96 02/15/20 00:00 36.9 C 67 22 H 160/68 H 91 02/14/20 20:53 76 02/14/20 20:00 36.3 C L 79 24 H 144/63 H 90 Intake/Output Intake/Output: Intake & Output 02/12/20 02/13/20 02/14/20 02/15/20 23:59 23:59 23:59 23:59 Intake Total 1420 1910 730 350 Output Total 2280 2225 2200 800 Balance -860 -315 -1470 -450 Meds/Results Medications: Active Medications Generic Name Dose Route Start Last Admin Trade Name Viviane PRN Reason Stop Dose Admin Acetaminophen 650 mg 02/06/20 20:27 02/12/20 21:26 Acetaminophen 325 Mg Tablet PO 650 mg Q12H PRN Administration Pain Amlodipine Besylate 5 mg 02/07/20 09:00 02/15/20 08:43 Amlodipine Besylate 5 Mg Tablet PO 5 mg DAILY TIRSO Administration Atorvastatin Calcium 10 mg 02/07/20 09:00 02/15/20 08:44 Atorvastatin 10 Mg Tablet PO 10 mg DAILY TIRSO Administration Bumetanide 2 mg 02/10/20 17:00 02/15/20 08:45 Bumetanide Inj 2.5 Mg/10 Ml Vial IV PUSH 2 mg BID TIRSO Administration Calcium Carbonate 500 mg 02/09/20 08:00 02/14
[2020-02-15 19:53] LABS: SARS-CoV-2 RNA PCR Negative
[2020-02-15 20:40] LABS: ANCA Screen Negative (Negative)
[2020-02-15] MEDS: TAMSULOSIN HCL 0.4 MG CAPSULE PO (20:40)
[2020-02-15] MEDS: VITAMIN B COMPLEX CAPSULE 1 CAP PO (20:40)
[2020-02-15 21:56] LABS: Glucose Point of Care 168 (65-105)
[2020-02-16] VITALS (9 sets, daily range): BP systolic 137–145; BP diastolic 56–80; PULSE 62–81; RESP 18–20; TEMP 36.4–37.1; O2SAT 92–98
[2020-02-16 04:20] LABS: Glucose Point of Care 134 (65-105)
[2020-02-16 04:20] LABS: Glucose Point of Care 161 (65-105)
[2020-02-16] MEDS: GABAPENTIN 300 MG CAPSULE 600 MG PO ×3 (05:52→21:44)
[2020-02-16 06:33] LABS: Hematocrit 28.4 % (42.0-52.0); Hemoglobin 9.4 g/dL (14.0-18.0); Mean Corpuscular HGB Conc 33.1 g/dl (32-36); Mean Corpuscular Hemoglobin 31.9 pg (26-34); Mean Corpuscular Volume 96.3 fl (80-100); Mean Platelet Volume 10.8 fl (7.4-10.4); Platelet Count Result 161 k/mm3 (150-375); Red Blood Count 2.95 M/mm3 (4.6-6.20); Red Cell Distribution Width 14.6 % (11.5-14.5); White Blood Count 7.9 K/mm3 (4.5-10.0)
[2020-02-16 07:10] LABS: Anion Gap 7 mmol/L (8-16); Carbon Dioxide 32 mmol/L (22-30); Chloride 96 mmol/L (98-107); Potassium 3.9 mmol/L (3.4-5.0); Sodium 135 mmol/L (137-145)
[2020-02-16 07:11] LABS: Albumin Level 3.2 g/dL (3.5-5.1); Blood Urea Nitrogen 98 mg/dL (9-20); Calcium 8.7 mg/dL (8.4-10.2); Estimated CRCL calculation 15 ml/min; Estimated Glomerular Filt Rate 14; Glucose 118 mg/dL (75-110); Magnesium 2.8 mg/dL (1.6-2.3)
[2020-02-16 08:24] LABS: Glucose Point of Care 135 (65-105)
[2020-02-16] MEDS: LORATADINE 10 MG TABLET PO (10:17)
[2020-02-16] MEDS: amLODIPine BESYLATE 5 MG TABLET PO (10:17)
[2020-02-16] MEDS: hydrALAZINE HCL 25 MG TABLET PO ×3 (10:17→18:07)
[2020-02-16] MEDS: ATORVASTATIN 10 MG TABLET PO (10:17)
[2020-02-16] MEDS: carvediloL 25 MG TABLET PO ×2 (10:17→20:19)
[2020-02-16] MEDS: PANTOPRAZOLE 40 MG TABLET PO (10:17)
[2020-02-16] MEDS: THERAPEUTIC MULTIVITAMINS/MINERALS TAB (*BKC) 1 TABLET PO (10:17)
[2020-02-16] MEDS: DOCUSATE SODIUM 100 MG CAPSULE PO ×2 (10:17→20:19)
[2020-02-16] MEDS: BUMETANIDE INJ 2.5 MG/10 ML VIAL 2 MG IV PUSH (10:18)
[2020-02-16] MEDS: metOLazone 5 MG TABLET PO (10:18)
[2020-02-16] MEDS: FINASTERIDE 5 MG TABLET PO (10:18)
[2020-02-16] MEDS: HEPARIN SODIUM 5,000 UNITS/ML VIAL 5000 UNITS SUB-Q ×2 (10:19→20:19)
[2020-02-16 12:33] LABS: Glucose Point of Care 198 (65-105)
--- NOTE | 2020-02-16 13:21 | PCPTNOTE ---
Patient refused treatment this session in A.M. and P.M. Patient stated that he was tired and was not able to exercise or walk. Patient educated on the importance of participating in therapy to improve strength and mobility. PT will continue to follow per plan of care.
--- NOTE | 2020-02-16 13:36 | PM.IMPN ---
Progress Note: A&P Assessment and Plan (1) Acute respiratory failure with hypoxia: Code(s): J96.01 - Acute respiratory failure with hypoxia Status: Acute Assessment and Plan: Secondary to congestive heart failure. COVID test negative. He does have evidence of aspiration with thin liquids. Hypoxia could be related to dysphagia/aspiration as well. Wean O2 as tolerated. Diuretics on hold due to elevated Cr. (2) Acute exacerbation of congestive heart failure: Code(s): I50.9 - Heart failure, unspecified Status: Acute Assessment and Plan: Echo here revealed EF of 55% with diastolic dysfunction Grade I and moderate to severe with moderate MR. BNP 32K. CXR showing pulmonary edema. Started on diuretics with IV Bumex and po Metolazone per nephrology. Cumulative output -5L. Lungs sound better but still on 3L and CXR 02/13 looks about the same or worse. Continue Jamal hose. COVID test is negative. Repeat CXR tomorrow. (3) Chronic progressive renal failure, stage 4 (severe): Code(s): N18.4 - Chronic kidney disease, stage 4 (severe) Status: Chronic Assessment and Plan: Cr was in the mid-2 range in December. Creatinine 3.1 on admission and increased to 3.3 the next day. Cr running 3.3-3.6 range since but now 4.1 this morning. Renal sonogram showed no hydro but distended bladder and over 600 ml residual so cath placed. No change in Cr since Geiger placed so less likely from obstructive uropathy. Nephrology following and appreciate their input. Renal biopsy being considered with elevated ESR and proteinuria. Discussed with cardiology and agree patient may be getting pre-renal. Will hold diuretic therapy. Patient also mildly confused which could be related to the elevated BUN. (4) Aortic stenosis: Onset Date: ~12/2019 Code(s): I35.0 - Nonrheumatic aortic (valve) stenosis Status: Acute Assessment and Plan: Echo showng moderate to severe with 1 cm2 valve area. Further recommendations per cardiology. (5) Chronic anemia: Code(s): D64.9 - Anemia, unspecified Status: Acute Assessment and Plan: Patient with chronic anemia mostly in the 10-11 when well. Hgb has dropped into the 9 range and stable. [place] anemia of chronic disease with iron deficiency component as well. He completed IV iron yesterday. Continue to follow. (6) Hypertension: Code(s): I10 - Essential (primary) hypertension Status: Acute Assessment and Plan: Patient's blood pressure was reviewed on 02/15 Blood pressure better controlled now. Will continue current medications with Norvasc, Coreg and Hydralazine. (7) Type 2 diabetes mellitus with peripheral neuropathy: Code(s): E11.42 - Type 2 diabetes mellitus with diabetic polyneuropathy Status: Acute Assessment and Plan: Last A1c 5.6 in June. The patient's blood glucose was reviewed on 02/15 Glucose remains reasonably well controlled. Continue to monitor with AccuCheks covering with sliding scale. Hypoglycemia protocol available as needed. Continue current treatment plan.. (8) Benign prostatic hyperplasia: Code(s): N40.0 - Benign prostatic hyperplasia without lower urinary tract symptoms Status: Acute Assessment and Plan: BPH with urine retention. Continue finasteride and tamsulosin. Continue geiger for now but will need follow up with urologist for voiding trial. This was discussed with Dr Coelho and the patient will see him as outpt. (9) DVT prophylaxis: Code(s): Z29.9 - Encounter for prophylactic measures, unspecified Status: Acute Assessment and Plan: heparin subcu with stage IV renal failure Subjective Date/time seen: 02/16/20 13:36 Interval history: Date of visit 02/15 84yo male with known aortic and mitral disease, systolic and diastolic heart failure abd CKD admitted with increasing shortness dell
--- NOTE | 2020-02-16 13:45 | P.PNNP_ITS ---
Progress Note: A&P Assessment and Plan (1) KENNY (acute kidney injury): Code(s): N17.9 - Acute kidney failure, unspecified Status: Acute Assessment and Plan: * is this really KENNY or is this just progression of his known CKD?? * creatinine higher than baseline on admission AND now is starting to rise due to the need for high dose diuretic therapy * however, elevated ESR in association with nephrotic proteinuria is concerning * all serologies to date negative (SPE/UPE/REX/dsDNA-ab/hepatitis/ANCA) although C3 was slightly low - renal biopsy still a consideration but not urgent * more concerning is that BUN and creatinine continue to rise - however, I am starting to suspect that patient is close to if not already close to euvolemia (in spite of CXR findings) - I am leaning toward stopping IV diuretics (and switch to oral diuretics if a few days) * continue to follow labs and UOP (2) Chronic progressive renal failure, stage 4 (severe): Code(s): N18.4 - Chronic kidney disease, stage 4 (severe) Status: Chronic Assessment and Plan: * baseline creatinine runs around 2.5 - 2.8mg/dl * due to diabetes, hypertension, cardiac + vavlular heart disease (systolic + diastolic heart failure along with aortic stenosis) * we may to accept a higher creatinine in an effort to achieve euvolemia (3) Acute exacerbation of congestive heart failure: Code(s): I50.9 - Heart failure, unspecified Status: Acute Assessment and Plan: * diuresis noted * Cardiology following * on diuretics - hold IV diuretics and switch to oral(?) * follow I/Os, respiratory status, daily weights...etc (4) Hypertension: Code(s): I10 - Essential (primary) hypertension Status: Acute Assessment and Plan: * BP seems to be doing better * follow trend with ongoing diuresis (5) Anemia: Code(s): D64.9 - Anemia, unspecified Status: Acute Assessment and Plan: * due to iron deficiency and underlying CKD * s/p course of IV venofer * follow trend of H/H (6) Diabetes: Code(s): E11.9 - Type 2 diabetes mellitus without complications Status: Chronic Assessment and Plan: * on acchecks * on SSI Will continue to follow. Subjective Date/time seen: 02/16/20 11:45 States that his breathing is better but his renal function is worsening with high dose diuretic therapy; recent CXR results concerning for COVID-19 but testing is negative; despite being negative almost 4L, still requiring supplemental oxygen; no apparent distress Exam Narrative: Exam Narrative: General: WD/WN male in NAD Heart: normal S1 and S2; no rub Lungs: decreased breath sounds at the bases Abdomen: soft, nontender, nondistended, positive bowel sounds Extremities: no cyanosis or clubbing; 1+ edema Skin: warm and intact Objective Data Vital Signs Vital Signs: Vital Signs Temp Pulse Resp BP Pulse Ox 02/16/20 11:13 97 02/16/20 10:17 62 02/16/20 08:13 81 18 92 02/16/20 06:00 36.4 C 62 20 137/80 92 02/15/20 20:40 68 02/15/20 20:30 92 02/15/20 20:00 36.5 C 79 22 H 136/42 L 92 02/15/20 16:00 36.9 C 75 14 123/56 L 97 Intake/Output Intake/Output: Intake & Output 02/13/20 02/14/20 02/15/20 02/16/20 23:59 23:59 23:59 23:59
--- NOTE | 2020-02-16 13:45 | PM.PNNEP ---
Progress Note: A&P Assessment and Plan (1) KENNY (acute kidney injury): Code(s): N17.9 - Acute kidney failure, unspecified Status: Acute Assessment and Plan: is this really KENNY or is this just progression of his known CKD?? creatinine higher than baseline on admission AND now is starting to rise due to the need for high dose diuretic therapy however, elevated ESR in association with nephrotic proteinuria is concerning all serologies to date negative (SPE/UPE/REX/dsDNA-ab/hepatitis/ANCA) although C3 was slightly low - renal biopsy still a consideration but not urgent more concerning is that BUN and creatinine continue to rise - however, I am starting to suspect that patient is close to if not already close to euvolemia (in spite of CXR findings) - I am leaning toward stopping IV diuretics (and switch to oral diuretics if a few days) continue to follow labs and UOP (2) Chronic progressive renal failure, stage 4 (severe): Code(s): N18.4 - Chronic kidney disease, stage 4 (severe) Status: Chronic Assessment and Plan: baseline creatinine runs around 2.5 - 2.8mg/dl due to diabetes, hypertension, cardiac + vavlular heart disease (systolic + diastolic heart failure along with aortic stenosis) we may to accept a higher creatinine in an effort to achieve euvolemia (3) Acute exacerbation of congestive heart failure: Code(s): I50.9 - Heart failure, unspecified Status: Acute Assessment and Plan: diuresis noted Cardiology following on diuretics - hold IV diuretics and switch to oral(?) follow I/Os, respiratory status, daily weights...etc (4) Hypertension: Code(s): I10 - Essential (primary) hypertension Status: Acute Assessment and Plan: BP seems to be doing better follow trend with ongoing diuresis (5) Anemia: Code(s): D64.9 - Anemia, unspecified Status: Acute Assessment and Plan: due to iron deficiency and underlying CKD s/p course of IV venofer follow trend of H/H (6) Diabetes: Code(s): E11.9 - Type 2 diabetes mellitus without complications Status: Chronic Assessment and Plan: on acchecks on SSI Will continue to follow. Subjective Date/time seen: 02/16/20 11:45 States that his breathing is better but his renal function is worsening with high dose diuretic therapy; recent CXR results concerning for COVID-19 but testing is negative; despite being negative almost 4L, still requiring supplemental oxygen; no apparent distress Exam Narrative: Exam Narrative: General: WD/WN male in NAD Heart: normal S1 and S2; no rub Lungs: decreased breath sounds at the bases Abdomen: soft, nontender, nondistended, positive bowel sounds Extremities: no cyanosis or clubbing; 1+ edema Skin: warm and intact Objective Data Vital Signs Vital Signs: Vital Signs Temp Pulse Resp BP Pulse Ox 02/16/20 11:13 97 02/16/20 10:17 62 02/16/20 08:13 81 18 92 02/16/20 06:00 36.4 C 62 20 137/80 92 02/15/20 20:40 68 02/15/20 20:30 92 02/15/20 20:00 36.5 C 79 22 H 136/42 L 92 02/15/20 16:00 36.9 C 75 14 123/56 L 97 Intake/Output Intake/Output: Intake & Output 02/13/20 02/14/20 02/15/20 02/16/20 23:59 23:59 23:59 23:59 Intake Total 1910 730 710 220 Output Total 2225 2200 1550 500 Balance -600 -1470 -840 -280 Meds/Results Medications: Active Medications Generic Name Dose Route Start Last Admin Trade Name Freq PRN Reason Stop Dose Admin Acetaminophen 650 mg 02/06/20 20:27 02/12/20 21:26 Acetaminophen 325 Mg Tablet PO 650 mg Q12H PRN Administration Pain Amlodipine Besylate 5 mg 02/07/20 09:00 02/16/20 10:17 Amlodipine Besylate 5 Mg Tablet PO 5 mg DAILY TIRSO Administration Atorvastatin Calcium 10 mg 02/07/20 09:00 02/16/20 10:17 Atorvastatin 10 Mg Tablet PO 10 mg DAILY
--- NOTE | 2020-02-16 14:27 | PM.PNCARD ---
Progress Note: A&P Additional Plan Patient at this time seems clear to me that he is not volume overloaded any longer and is significantly prerenal by labs. I believe we should stop the IV Bumex and metolazone. Oral furosemide or Bumex can be resumed in the next 24-[address] Corado returns he can discuss with the patient plans regarding aortic valve replacement verses continuing medical treatment. Sanchez King MD [facility] Subjective Date/time seen: Date of service: 02/16/20 14:27 Interval history: Follow-up visit in this 84-year-old man with systolic heart failure and aortic valve stenosis which is at least moderate by echo. Patient is doing better with aggressive diuresis clinically but is becoming significantly pre renal. Exam Const: General: comfortable and no acute distress HENMT: Mouth: Yes dry mucous membranes Eyes: Sclera: sclerae normal Pupils: Equal, round and reactive pupils present Neck: Neck: supple and no JVD Thyroid: thyroid normal Resp: Effort & Inspection: normal respiratory effort Other: No wheezes breath sounds slightly diminished at the bases no obvious rales Cardio: Rate: regular rate Rhythm: regular rhythm Other: High-pitched grade 3/6 aortic valve stenosis murmur GI: GI Palp: Yes Soft to palpation Auscultation: normal bowel sounds Skin: General skin exam: normal color Neuro: Cognition (Neuro): normal cognition Extrem: Other: No peripheral edema Objective Data Vital Signs Vital Signs: Vital Signs - 24 hr 02/15/20 16:00 02/15/20 20:00 02/15/20 20:30 Temperature 36.9 C 36.5 C Pulse Rate 75 79 Respiratory Rate 14 22 H Blood Pressure 123/56 L 136/42 L Pulse Oximetry 97 92 92 02/15/20 20:40 02/16/20 06:00 02/16/20 08:13 Temperature 36.4 C Pulse Rate 68 62 81 Respiratory Rate 20 18 Blood Pressure 137/80 Pulse Oximetry 92 92 02/16/20 10:17 02/16/20 11:13 Temperature Pulse Rate 62 Respiratory Rate Blood Pressure Pulse Oximetry 97 Intake/Output Intake/Output: Intake & Output 02/13/20 02/14/20 02/15/20 02/16/20 23:59 23:59 23:59 23:59 Intake Total 1910 730 710 220 Output Total 2225 2200 1550 500 Balance -315 -1470 -840 -280 Meds/Results Medications: Active Medications Generic Name Dose Route Start Last Admin Trade Name Viviane PRN Reason Stop Dose Admin Acetaminophen 650 mg 02/06/20 20:27 02/12/20 21:26 Acetaminophen 325 Mg Tablet PO 650 mg Q12H PRN Administration Pain Amlodipine Besylate 5 mg 02/07/20 09:00 02/16/20 10:17 Amlodipine Besylate 5 Mg Tablet PO 5 mg DAILY TIRSO Administration Atorvastatin Calcium 10 mg 02/07/20 09:00 02/16/20 10:17 Atorvastatin 10 Mg Tablet PO 10 mg DAILY TIRSO Administration Bumetanide 2 mg 02/10/20 17:00 02/16/20 10:18 Bumetanide Inj 2.5 Mg/10 Ml Vial IV PUSH 2 mg BID TIRSO Administration Calcium Carbonate 500 mg 02/09/20 08:00 02/16/20 10:17 Calcium/Vitamin D 500 Mg Tablet PO 500 mg DAILY@0800 TIRSO Administration Carvedilol 25 mg 02/06/20 21:00 02/16/20 10:17 Carvedilol 25 Mg Tablet PO 25 mg Q12HR TIRSO Administration Dextrose 12.5 gm 02/06/20 21:23 Dextrose 50% 25 Gm/50 Ml Syringe IV PUSH PRN PRN Hypoglycemia Protocol Docusate Sodium 100 mg 02/06/20 21:00 02/16/20 10:17 Docusate Sodium 100 Mg Capsule PO 100 mg Q12HR TIRSO Administration Finasteride 5 mg 02/07/20 09:00 02/16/20 10:18 Finasteride 5 Mg Tablet PO 5 mg DAILY TIRSO Administration Gabapentin 600 mg 02/06/20 22:00 02/16/20 13:24 Gabapentin 300 Mg Capsule PO 600 mg Q8HR TIRSO Administration Glucagon 1 mg 02/06/20 21:23 Glucagon For Inj 1 Mg Vial IM PRN PRN Hypoglycemia Protocol Glucose 15 gm 02/06/20 21:23 Glucose Oral Gel 15 Gm Of Glucse In 37.5 Gm Tube PO PRN PRN Hypoglycemia Protocol Heparin Sodium (Porcine) 5,000 units 02/07/20 21:00 02/16/20 10:19 Heparin Sodiu
[2020-02-16 17:24] LABS: Glucose Point of Care 196 (65-105)
[2020-02-16] MEDS: TAMSULOSIN HCL 0.4 MG CAPSULE PO (20:19)
[2020-02-16] MEDS: VITAMIN B COMPLEX CAPSULE 1 CAP PO (20:19)
[2020-02-16 21:51] LABS: Glucose Point of Care 194 (65-105)
[2020-02-17] VITALS (7 sets, daily range): BP systolic 132–141; BP diastolic 59–75; PULSE 70–80; RESP 14–20; TEMP 36.1–36.4; O2SAT 90–97
[2020-02-17] MEDS: GABAPENTIN 300 MG CAPSULE 600 MG PO ×3 (05:17→20:32)
[2020-02-17 06:22] LABS: Hemoglobin 9.6 g/dL (14.0-18.0); Mean Corpuscular HGB Conc 33.1 g/dl (32-36); Mean Corpuscular Hemoglobin 32.7 pg (26-34); Mean Corpuscular Volume 98.6 fl (80-100); Mean Platelet Volume 10.8 fl (7.4-10.4); Platelet Count Result 168 k/mm3 (150-375); Red Blood Count 2.94 M/mm3 (4.6-6.20); Red Cell Distribution Width 14.6 % (11.5-14.5); White Blood Count 7.5 K/mm3 (4.5-10.0)
[2020-02-17 06:32] LABS: Albumin Level 3.2 g/dL (3.5-5.1); Anion Gap 9 mmol/L (8-16); Blood Urea Nitrogen 104 mg/dL (9-20); Calcium 8.7 mg/dL (8.4-10.2); Carbon Dioxide 31 mmol/L (22-30); Chloride 95 mmol/L (98-107); Estimated CRCL calculation 15 ml/min; Estimated Glomerular Filt Rate 14; Glucose 132 mg/dL (75-110); Magnesium 2.9 mg/dL (1.6-2.3); Phosphorus 4.9 mg/dL (2.5-4.5); Potassium 3.7 mmol/L (3.4-5.0); Sodium 135 mmol/L (137-145)
[2020-02-17] MEDS: ACETAMINOPHEN 325 MG TABLET 650 MG PO (07:49)
[2020-02-17 08:50] LABS: Glucose Point of Care 198 (65-105)
[2020-02-17] MEDS: carvediloL 25 MG TABLET PO ×2 (08:53→20:33)
[2020-02-17] MEDS: amLODIPine BESYLATE 5 MG TABLET PO (08:53)
[2020-02-17] MEDS: ATORVASTATIN 10 MG TABLET PO (08:53)
[2020-02-17] MEDS: HEPARIN SODIUM 5,000 UNITS/ML VIAL 5000 UNITS SUB-Q ×2 (08:54→20:34)
[2020-02-17] MEDS: FINASTERIDE 5 MG TABLET PO (08:54)
[2020-02-17] MEDS: THERAPEUTIC MULTIVITAMINS/MINERALS TAB (*BKC) 1 TABLET PO (08:55)
[2020-02-17] MEDS: LORATADINE 10 MG TABLET PO (08:55)
[2020-02-17] MEDS: PANTOPRAZOLE 40 MG TABLET PO (08:55)
[2020-02-17] MEDS: hydrALAZINE HCL 25 MG TABLET PO ×3 (08:55→16:58)
[2020-02-17] MEDS: DOCUSATE SODIUM 100 MG CAPSULE PO ×2 (09:01→20:32)
[2020-02-17 09:24] LABS: Glucose Point of Care 148 (65-105)
--- NOTE | 2020-02-17 11:54 | P.PNNP_ITS ---
Progress Note: A&P Assessment and Plan (1) KENNY (acute kidney injury): Code(s): N17.9 - Acute kidney failure, unspecified Status: Acute Assessment and Plan: * is this really KENNY or is this just progression of his known CKD?? * creatinine higher than baseline on admission AND now is starting to rise due to the need for high dose diuretic therapy * however, elevated ESR in association with nephrotic proteinuria is concerning * all serologies to date negative (SPE/UPE/REX/dsDNA-ab/hepatitis/ANCA) although C3 was slightly low - renal biopsy still a consideration but not urgent * more concerning is that BUN and creatinine continue to rise - IV diuretics and metolazone ON HOLD * CXR this AM noted * continue to follow labs and UOP (2) Chronic progressive renal failure, stage 4 (severe): Code(s): N18.4 - Chronic kidney disease, stage 4 (severe) Status: Chronic Assessment and Plan: * baseline creatinine runs around 2.5 - 2.8mg/dl * due to diabetes, hypertension, cardiac + vavlular heart disease (systolic + diastolic heart failure along with aortic stenosis) * we may to accept a higher creatinine in an effort to achieve euvolemia (3) Acute exacerbation of congestive heart failure: Code(s): I50.9 - Heart failure, unspecified Status: Acute Assessment and Plan: * diuresis noted * Cardiology following * on diuretics - hold IV diuretics and switch to oral(?) * follow I/Os, respiratory status, daily weights...etc (4) Hypertension: Code(s): I10 - Essential (primary) hypertension Status: Acute Assessment and Plan: * BP seems to be doing better * follow trend for now (5) Anemia: Code(s): D64.9 - Anemia, unspecified Status: Acute Assessment and Plan: * due to iron deficiency and underlying CKD * s/p course of IV venofer * follow trend of H/H (6) Diabetes: Code(s): E11.9 - Type 2 diabetes mellitus without complications Status: Chronic Assessment and Plan: * on acchecks * on SSI Will continue to follow. Subjective Date/time seen: 02/17/20 11:54 Diuretics on hold at this time due to concerns of overdiuresis given trend in last over the last few days; he states he feels okay on my visit with him today and states he wants to go home. Exam Narrative: Exam Narrative: General: WD/WN male in NAD Heart: normal S1 and S2; no rub Lungs: Clear anteriorly Abdomen: soft, nontender, nondistended, positive bowel sounds Extremities: no cyanosis or clubbing; trace edema Skin: warm and intact Objective Data Vital Signs Vital Signs: Vital Signs Temp Pulse Resp BP Pulse Ox 02/17/20 08:53 80 02/17/20 07:45 95 02/17/20 06:00 36.3 C L 74 20 141/75 H 90 02/16/20 22:00 36.7 C 76 20 139/61 93 02/16/20 20:19 78 02/16/20 16:00 94 02/16/20 14:00 37.1 C 74 18 145/56 H 98 02/16/20 12:00 93 Intake/Output Intake/Output: Intake & Output 02/14/20 02/15/20 02/16/20 02/17/20 23:59 23:59 23:59 23:59 Intake Total 730 710 580 480 Output Total 2200 1550 1400 800 Balance -1470 -840 -820 -320 Meds/Results Medications: Active Medications Generic Name Dose Route Start Last Admin Trade
--- NOTE | 2020-02-17 11:54 | PM.PNNEP ---
Progress Note: A&P Assessment and Plan (1) KENNY (acute kidney injury): Code(s): N17.9 - Acute kidney failure, unspecified Status: Acute Assessment and Plan: is this really KENNY or is this just progression of his known CKD?? creatinine higher than baseline on admission AND now is starting to rise due to the need for high dose diuretic therapy however, elevated ESR in association with nephrotic proteinuria is concerning all serologies to date negative (SPE/UPE/REX/dsDNA-ab/hepatitis/ANCA) although C3 was slightly low - renal biopsy still a consideration but not urgent more concerning is that BUN and creatinine continue to rise - IV diuretics and metolazone ON HOLD CXR this AM noted continue to follow labs and UOP (2) Chronic progressive renal failure, stage 4 (severe): Code(s): N18.4 - Chronic kidney disease, stage 4 (severe) Status: Chronic Assessment and Plan: baseline creatinine runs around 2.5 - 2.8mg/dl due to diabetes, hypertension, cardiac + vavlular heart disease (systolic + diastolic heart failure along with aortic stenosis) we may to accept a higher creatinine in an effort to achieve euvolemia (3) Acute exacerbation of congestive heart failure: Code(s): I50.9 - Heart failure, unspecified Status: Acute Assessment and Plan: diuresis noted Cardiology following on diuretics - hold IV diuretics and switch to oral(?) follow I/Os, respiratory status, daily weights...etc (4) Hypertension: Code(s): I10 - Essential (primary) hypertension Status: Acute Assessment and Plan: BP seems to be doing better follow trend for now (5) Anemia: Code(s): D64.9 - Anemia, unspecified Status: Acute Assessment and Plan: due to iron deficiency and underlying CKD s/p course of IV venofer follow trend of H/H (6) Diabetes: Code(s): E11.9 - Type 2 diabetes mellitus without complications Status: Chronic Assessment and Plan: on acchecks on SSI Will continue to follow. Subjective Date/time seen: 02/17/20 11:54 Diuretics on hold at this time due to concerns of overdiuresis given trend in last over the last few days; he states he feels okay on my visit with him today and states he wants to go home. Exam Narrative: Exam Narrative: General: WD/WN male in NAD Heart: normal S1 and S2; no rub Lungs: Clear anteriorly Abdomen: soft, nontender, nondistended, positive bowel sounds Extremities: no cyanosis or clubbing; trace edema Skin: warm and intact Objective Data Vital Signs Vital Signs: Vital Signs Temp Pulse Resp BP Pulse Ox 02/17/20 08:53 80 02/17/20 07:45 95 02/17/20 06:00 36.3 C L 74 20 141/75 H 90 02/16/20 22:00 36.7 C 76 20 139/61 93 02/16/20 20:19 78 02/16/20 16:00 94 02/16/20 14:00 37.1 C 74 18 145/56 H 98 02/16/20 12:00 93 Intake/Output Intake/Output: Intake & Output 02/14/20 02/15/20 02/16/20 02/17/20 23:59 23:59 23:59 23:59 Intake Total 730 710 580 480 Output Total 2200 1550 1400 800 Balance -1470 -840 -820 -320 Meds/Results Medications: Active Medications Generic Name Dose Route Start Last Admin Trade Name [place]q PRN Reason Stop Dose Admin Acetaminophen 650 mg 02/06/20 20:27 02/17/20 07:49 Acetaminophen 325 Mg Tablet PO 650 mg Q12H PRN Administration Pain Amlodipine Besylate 5 mg 02/07/20 09:00 02/17/20 08:53 Amlodipine Besylate 5 Mg Tablet PO 5 mg DAILY TIRSO Administration Atorvastatin Calcium 10 mg 02/07/20 09:00 02/17/20 08:53 Atorvastatin 10 Mg Tablet PO 10 mg DAILY TIRSO Administration Calcium Carbonate 500 mg 02/09/20 08:00 02/17/20 08:52 Calcium/Vitamin D 500 Mg Tablet PO 500 mg DAILY@0800 TIRSO Administration Carvedilol 25 mg 02/06/20 21:00 02/17/20 08:53 Carvedilol 25 Mg Tablet PO 25 mg Q12HR TIRSO Administration
[2020-02-17 13:34] LABS: Glucose Point of Care 180 (65-105)
--- NOTE | 2020-02-17 14:40 | PM.IMPN ---
Progress Note: A&P Assessment and Plan (1) Acute respiratory failure with hypoxia: Code(s): J96.01 - Acute respiratory failure with hypoxia Status: Acute Assessment and Plan: Secondary to congestive heart failure. COVID test negative. He does have evidence of aspiration with thin liquids. Hypoxia could be related to dysphagia/aspiration as well. Wean O2 as tolerated. Diuretics on hold due to elevated Cr. Consider abx if cough, fever or elevated WBC. Discussed with family. (2) Acute exacerbation of congestive heart failure: Code(s): I50.9 - Heart failure, unspecified Status: Acute Assessment and Plan: Echo here revealed EF of 55% with diastolic dysfunction Grade I and moderate to severe with moderate MR. BNP 32K. CXR showing pulmonary edema. Started on diuretics with IV Bumex and po Metolazone per nephrology. Cumulative output -5L. Lungs sound better but still on O2 and CXR 02/16 looks better. Continue Jamal hose. (3) Chronic progressive renal failure, stage 4 (severe): Code(s): N18.4 - Chronic kidney disease, stage 4 (severe) Status: Chronic Assessment and Plan: Cr was in the mid-2 range in December. Creatinine 3.1 on admission and increased to 3.3 the next day. Cr running 3.3-3.6 range for many days but now 4.1 for the past 2 days. Renal sonogram showed no hydro but distended bladder and over 600 ml residual so cath placed. No change in Cr since Geiger placed so less likely from obstructive uropathy. Nephrology following and appreciate their input. Renal biopsy on hold due to no significant elevation of autoimmune markers. Discussed with cardiology and agree patient may be getting pre-renal. Diuretic therapy held yesterday. Patient also mildly confused which could be related to the elevated BUN. Appreciate nephrology input. (4) Aortic stenosis: Onset Date: ~12/2019 Code(s): I35.0 - Nonrheumatic aortic (valve) stenosis Status: Acute Assessment and Plan: Echo showng moderate to severe with 1 cm2 valve area. Further recommendations per cardiology. (5) Chronic anemia: Code(s): D64.9 - Anemia, unspecified Status: Acute Assessment and Plan: Patient with chronic anemia mostly in the 10-11 when well. Hgb has dropped into the 9 range and stable. [place] anemia of chronic disease with iron deficiency component as well. He completed IV iron x 5 days. Continue to follow. (6) Hypertension: Code(s): I10 - Essential (primary) hypertension Status: Acute Assessment and Plan: Patient's blood pressure was reviewed on 02/16 Blood pressure well controlled. Will continue current medications with Norvasc, Coreg and Hydralazine. (7) Type 2 diabetes mellitus with peripheral neuropathy: Code(s): E11.42 - Type 2 diabetes mellitus with diabetic polyneuropathy Status: Acute Assessment and Plan: Last A1c 5.6 in June. The patient's blood glucose was reviewed on 02/16 Glucose remains reasonably well controlled. Continue to monitor with AccuCheks covering with sliding scale. Hypoglycemia protocol available as needed. Continue current treatment plan.. (8) Benign prostatic hyperplasia: Code(s): N40.0 - Benign prostatic hyperplasia without lower urinary tract symptoms Status: Acute Assessment and Plan: BPH with urine retention. Continue finasteride and tamsulosin. Continue geiger for now but will need follow up with urologist for voiding trial. This was discussed with Dr Coelho and the patient will see him as outpt. (9) DVT prophylaxis: Code(s): Z29.9 - Encounter for prophylactic measures, unspecified Status: Acute Assessment and Plan: heparin subcu with stage IV renal failure Subjective Date/time seen: 02/17/20 14:40 Interval history: Date of visit 02/16 84yo male with known aortic and mitral disease, systolic and diastolic
[2020-02-17 18:06] LABS: Glucose Point of Care 141 (65-105)
[2020-02-17] MEDS: VITAMIN B COMPLEX CAPSULE 1 CAP PO (20:32)
[2020-02-17] MEDS: TAMSULOSIN HCL 0.4 MG CAPSULE PO (20:32)
[2020-02-17 21:57] LABS: Glucose Point of Care 185 (65-105)
[2020-02-18] VITALS (10 sets, daily range): BP systolic 128–149; BP diastolic 54–72; PULSE 60–77; RESP 18–22; TEMP 36.3–37; O2SAT 92–96
[2020-02-18] MEDS: GABAPENTIN 300 MG CAPSULE 600 MG PO ×3 (06:35→21:31)
[2020-02-18 06:55] LABS: Albumin Level 3.3 g/dL (3.5-5.1); Anion Gap 8 mmol/L (8-16); Blood Urea Nitrogen 104 mg/dL (9-20); Calcium 8.5 mg/dL (8.4-10.2); Carbon Dioxide 33 mmol/L (22-30); Chloride 96 mmol/L (98-107); Estimated CRCL calculation 14 ml/min; Estimated Glomerular Filt Rate 13; Glucose 137 mg/dL (75-110); Phosphorus 5.2 mg/dL (2.5-4.5); Potassium 3.9 mmol/L (3.4-5.0); Sodium 137 mmol/L (137-145)
[2020-02-18 08:28] LABS: Glucose Point of Care 138 (65-105)
[2020-02-18] MEDS: ATORVASTATIN 10 MG TABLET PO (08:35)
[2020-02-18] MEDS: carvediloL 25 MG TABLET PO ×2 (08:35→20:01)
[2020-02-18] MEDS: FINASTERIDE 5 MG TABLET PO (08:35)
[2020-02-18] MEDS: HEPARIN SODIUM 5,000 UNITS/ML VIAL 5000 UNITS SUB-Q ×2 (08:36→20:01)
[2020-02-18] MEDS: amLODIPine BESYLATE 5 MG TABLET PO (08:36)
[2020-02-18] MEDS: hydrALAZINE HCL 25 MG TABLET PO ×3 (08:36→17:13)
[2020-02-18] MEDS: PANTOPRAZOLE 40 MG TABLET PO (08:36)
[2020-02-18] MEDS: LORATADINE 10 MG TABLET PO (08:36)
[2020-02-18] MEDS: DOCUSATE SODIUM 100 MG CAPSULE PO ×2 (08:48→20:10)
--- NOTE | 2020-02-18 09:47 | P.PNNP_ITS ---
Progress Note: A&P Assessment and Plan (1) KENNY (acute kidney injury): Code(s): N17.9 - Acute kidney failure, unspecified Status: Acute Assessment and Plan: * is this really KENNY or is this just progression of his known CKD?? * creatinine higher than baseline on admission AND now elevated due to the need for high dose diuretic therapy * however, elevated ESR in association with nephrotic proteinuria is concerning * all serologies to date negative (SPE/UPE/REX/dsDNA-ab/hepatitis/ANCA) although C3 was slightly low - renal biopsy still a consideration but not urgent * more concerning is that BUN and creatinine continue to rise - possible overdiuresis - IV diuretics and metolazone ON HOLD - confusion could be an early sign of uremia * CXR yesterday AM noted * continue to follow labs and UOP (2) Chronic progressive renal failure, stage 4 (severe): Code(s): N18.4 - Chronic kidney disease, stage 4 (severe) Status: Chronic Assessment and Plan: * baseline creatinine runs around 2.5 - 2.8mg/dl * due to diabetes, hypertension, cardiac + vavlular heart disease (systolic + diastolic heart failure along with aortic stenosis) * we may to accept a higher creatinine in an effort to achieve euvolemia (3) Acute exacerbation of congestive heart failure: Code(s): I50.9 - Heart failure, unspecified Status: Acute Assessment and Plan: * diuresis on hold * Cardiology following * holding IV diuretics at this time * follow I/Os, respiratory status, daily weights...etc (4) Hypertension: Code(s): I10 - Essential (primary) hypertension Status: Acute Assessment and Plan: * BP seems to be doing better * follow trend for now (5) Anemia: Code(s): D64.9 - Anemia, unspecified Status: Acute Assessment and Plan: * due to iron deficiency and underlying CKD * s/p course of IV venofer * follow trend of H/H (6) Diabetes: Code(s): E11.9 - Type 2 diabetes mellitus without complications Status: Chronic Assessment and Plan: * on acchecks * on SSI I have been unable to get a hold of the patient's daughter to discuss my concers regarding his kidney function, azotemia and possibly uremia, and possible dialysis (dialysis might be challenging given his aortic stenosis at bedside. Will continue to follow. Subjective Date/time seen: 02/18/20 09:48 Feeling reasonably well from respiratory standpoint; diuretic on hold but BUN continues to climb; some confusion noted at the time of my visit as well; no apparent distress currently. Exam Narrative: Exam Narrative: General: WD/WN male in NAD Heart: normal S1 and S2; no rub Lungs: Clear anteriorly Abdomen: soft, nontender, nondistended, positive bowel sounds Extremities: no cyanosis or clubbing; trace edema Skin: warm and intact Objective Data Vital Signs Vital Signs: Vital Signs Temp Pulse Resp BP Pulse Ox 02/18/20 08:35 60 02/18/20 06:00 36.8 C 61 20 128/62 93 02/17/20 22:00 36.4 C 70 20 132/63 90 02/17/20 20:33 72 02/17/20 20:00 70 20 90 02/17/20 14:00 36.1 C L 71 14 139/59 L 97 Intake/Output Intake/Output: Intake & Output 02/15/20 02/16/20 02/17/20 02/18/20 23:59 23:59 23:59 23:59 Intake Total 710 580 920 100
--- NOTE | 2020-02-18 09:47 | PM.PNNEP ---
Progress Note: A&P Assessment and Plan (1) KENNY (acute kidney injury): Code(s): N17.9 - Acute kidney failure, unspecified Status: Acute Assessment and Plan: is this really KENNY or is this just progression of his known CKD?? creatinine higher than baseline on admission AND now elevated due to the need for high dose diuretic therapy however, elevated ESR in association with nephrotic proteinuria is concerning all serologies to date negative (SPE/UPE/REX/dsDNA-ab/hepatitis/ANCA) although C3 was slightly low - renal biopsy still a consideration but not urgent more concerning is that BUN and creatinine continue to rise - possible overdiuresis - IV diuretics and metolazone ON HOLD - confusion could be an early sign of uremia CXR yesterday AM noted continue to follow labs and UOP (2) Chronic progressive renal failure, stage 4 (severe): Code(s): N18.4 - Chronic kidney disease, stage 4 (severe) Status: Chronic Assessment and Plan: baseline creatinine runs around 2.5 - 2.8mg/dl due to diabetes, hypertension, cardiac + vavlular heart disease (systolic + diastolic heart failure along with aortic stenosis) we may to accept a higher creatinine in an effort to achieve euvolemia (3) Acute exacerbation of congestive heart failure: Code(s): I50.9 - Heart failure, unspecified Status: Acute Assessment and Plan: diuresis on hold Cardiology following holding IV diuretics at this time follow I/Os, respiratory status, daily weights...etc (4) Hypertension: Code(s): I10 - Essential (primary) hypertension Status: Acute Assessment and Plan: BP seems to be doing better follow trend for now (5) Anemia: Code(s): D64.9 - Anemia, unspecified Status: Acute Assessment and Plan: due to iron deficiency and underlying CKD s/p course of IV venofer follow trend of H/H (6) Diabetes: Code(s): E11.9 - Type 2 diabetes mellitus without complications Status: Chronic Assessment and Plan: on acchecks on SSI I have been unable to get a hold of the patient's daughter to discuss my concers regarding his kidney function, azotemia and possibly uremia, and possible dialysis (dialysis might be challenging given his aortic stenosis at bedside. Will continue to follow. Subjective Date/time seen: 02/18/20 09:48 Feeling reasonably well from respiratory standpoint; diuretic on hold but BUN continues to climb; some confusion noted at the time of my visit as well; no apparent distress currently. Exam Narrative: Exam Narrative: General: WD/WN male in NAD Heart: normal S1 and S2; no rub Lungs: Clear anteriorly Abdomen: soft, nontender, nondistended, positive bowel sounds Extremities: no cyanosis or clubbing; trace edema Skin: warm and intact Objective Data Vital Signs Vital Signs: Vital Signs Temp Pulse Resp BP Pulse Ox 02/18/20 08:35 60 02/18/20 06:00 36.8 C 61 20 128/62 93 02/17/20 22:00 36.4 C 70 20 132/63 90 02/17/20 20:33 72 02/17/20 20:00 70 20 90 02/17/20 14:00 36.1 C L 71 14 139/59 L 97 Intake/Output Intake/Output: Intake & Output 02/15/20 02/16/20 02/17/20 02/18/20 23:59 23:59 23:59 23:59 Intake Total 710 580 920 100 Output Total 1550 1400 1325 650 Balance -840 -820 -405 -550 Meds/Results Medications: Active Medications Generic Name Dose Route Start Last Admin Trade Name Freq PRN Reason Stop Dose Admin Acetaminophen 650 mg 02/06/20 20:27 02/17/20 07:49 Acetaminophen 325 Mg Tablet PO 650 mg Q12H PRN Administration Pain Amlodipine Besylate 5 mg 02/07/20 09:00 02/18/20 08:36 Amlodipine Besylate 5 Mg Tablet PO 5 mg DAILY TIRSO Administration Atorvastatin Calcium 10 mg 02/07/20 09:00 02/18/20 08:35 Atorvastatin 10 Mg Tablet PO 10 mg DAILY TIRSO Administration Calcium Carbonate
--- NOTE | 2020-02-18 12:11 | PC.NURSE ---
Patient has removed his oxygen twice today. I have explained to him the importance of leaving it in and what can happen if his O2 Sats drop down too low. The patient is not very receptive to new education. I have asked the patient to please call me if his oxygen is uncomfortable.
[2020-02-18 12:36] LABS: Glucose Point of Care 197 (65-105)
[2020-02-18] MEDS: THERAPEUTIC MULTIVITAMINS/MINERALS TAB (*BKC) 1 TABLET PO (14:33)
--- NOTE | 2020-02-18 15:35 | PM.IMPN ---
Progress Note: A&P Assessment and Plan (1) Acute respiratory failure with hypoxia: Code(s): J96.01 - Acute respiratory failure with hypoxia Status: Acute Assessment and Plan: Secondary to congestive heart failure. COVID test negative. He does have evidence of aspiration with thin liquids. Hypoxia could be related to dysphagia/aspiration as well. Wean O2 as tolerated. Diuretics on hold due to elevated Cr. Consider abx if s/sx of PNA (cough, fever or elevated WBC). (2) Acute exacerbation of congestive heart failure: Code(s): I50.9 - Heart failure, unspecified Status: Acute Assessment and Plan: Echo here revealed EF of 55% with diastolic dysfunction Grade I and moderate to severe with moderate MR. BNP 32K. CXR showing pulmonary edema. Started on diuretics with IV Bumex and po Metolazone per nephrology. Cumulative output -5.4L. Lungs sound better but still on O2 and CXR 02/16 looks better. Continue Jamal hose. Off diuretics currently. (3) Chronic progressive renal failure, stage 4 (severe): Code(s): N18.4 - Chronic kidney disease, stage 4 (severe) Status: Chronic Assessment and Plan: Cr was in the mid-2 range in December. Creatinine 3.1 on admission and increased to 3.3 the next day. Cr running 3.3-3.6 range for many days but now 4.1-4.3 for the past 3 days and climbing despite being off his diuretics. Renal sonogram showed no hydro but distended bladder and over 600 ml residual so cath placed. No change in Cr since Geiger placed so less likely from obstructive uropathy. Nephrology following and appreciate their input. Renal biopsy on hold due to no significant elevation of autoimmune markers. Diuretic therapy held 02/15. Patient also mildly confused which could be related to the elevated BUN. Discussed with nephrology who recommended continue inpatient say and monitoring. Appreciate nephrology input. (4) Aortic stenosis: Onset Date: ~12/2019 Code(s): I35.0 - Nonrheumatic aortic (valve) stenosis Status: Acute Assessment and Plan: Echo showng moderate to severe with 1 cm2 valve area. Further recommendations per cardiology. (5) Chronic anemia: Code(s): D64.9 - Anemia, unspecified Status: Acute Assessment and Plan: Patient with chronic anemia mostly in the 10-11 when well. Hgb has dropped into the 9 range and stable. [place] anemia of chronic disease with iron deficiency component as well. He completed IV iron x 5 days. Continue to follow. (6) Hypertension: Code(s): I10 - Essential (primary) hypertension Status: Acute Assessment and Plan: Patient's blood pressure was reviewed on 02/17 Blood pressure well controlled. Will continue current medications with Norvasc, Coreg and Hydralazine. (7) Type 2 diabetes mellitus with peripheral neuropathy: Code(s): E11.42 - Type 2 diabetes mellitus with diabetic polyneuropathy Status: Acute Assessment and Plan: Last A1c 5.6 in June. The patient's blood glucose was reviewed on 02/17 Glucose remains reasonably well controlled. Continue to monitor with AccuCheks covering with sliding scale. Hypoglycemia protocol available as needed. Continue current treatment plan.. (8) Benign prostatic hyperplasia: Code(s): N40.0 - Benign prostatic hyperplasia without lower urinary tract symptoms Status: Acute Assessment and Plan: BPH with urine retention. Continue finasteride and tamsulosin. Continue geiger for now but will need follow up with urologist for voiding trial. This was discussed with Dr Coelho and the patient will see him as outpt. (9) DVT prophylaxis: Code(s): Z29.9 - Encounter for prophylactic measures, unspecified Status: Acute Assessment and Plan: heparin subcu with stage IV renal failure Subjective Date/time seen: 02/18/20 15:35 Interval history: Date of visit 02/17
[2020-02-18 17:42] LABS: Glucose Point of Care 182 (65-105)
[2020-02-18] MEDS: TAMSULOSIN HCL 0.4 MG CAPSULE PO (20:01)
[2020-02-18] MEDS: VITAMIN B COMPLEX CAPSULE 1 CAP PO (20:02)
[2020-02-18 23:00] LABS: Glucose Point of Care 174 (65-105)
[2020-02-19] VITALS (7 sets, daily range): BP systolic 142–147; BP diastolic 62–63; PULSE 63–74; RESP 20–22; TEMP 36.6–36.8; O2SAT 90–95
[2020-02-19] MEDS: GABAPENTIN 300 MG CAPSULE 600 MG PO ×3 (05:10→21:38)
[2020-02-19 08:02] LABS: Albumin Level 3.2 g/dL (3.5-5.1); Anion Gap 7 mmol/L (8-16); Blood Urea Nitrogen 105 mg/dL (9-20); Calcium 8.6 mg/dL (8.4-10.2); Carbon Dioxide 32 mmol/L (22-30); Chloride 98 mmol/L (98-107); Estimated CRCL calculation 14 ml/min; Estimated Glomerular Filt Rate 13; Glucose 173 mg/dL (75-110); Phosphorus 4.8 mg/dL (2.5-4.5); Potassium 4.2 mmol/L (3.4-5.0); Sodium 137 mmol/L (137-145)
[2020-02-19] MEDS: PANTOPRAZOLE 40 MG TABLET PO (09:21)
[2020-02-19] MEDS: carvediloL 25 MG TABLET PO ×2 (09:21→20:08)
[2020-02-19] MEDS: amLODIPine BESYLATE 5 MG TABLET PO (09:21)
[2020-02-19] MEDS: ATORVASTATIN 10 MG TABLET PO (09:22)
[2020-02-19] MEDS: FINASTERIDE 5 MG TABLET PO (09:23)
[2020-02-19] MEDS: HEPARIN SODIUM 5,000 UNITS/ML VIAL 5000 UNITS SUB-Q ×2 (09:23→20:08)
[2020-02-19] MEDS: hydrALAZINE HCL 25 MG TABLET PO ×3 (09:24→17:02)
[2020-02-19] MEDS: DOCUSATE SODIUM 100 MG CAPSULE PO ×2 (09:24→20:08)
[2020-02-19] MEDS: THERAPEUTIC MULTIVITAMINS/MINERALS TAB (*BKC) 1 TABLET PO (09:25)
[2020-02-19] MEDS: LORATADINE 10 MG TABLET PO (09:25)
[2020-02-19 09:46] LABS: Glucose Point of Care 170 (65-105)
--- NOTE | 2020-02-19 10:42 | PM.IMPN ---
Progress Note: A&P Assessment and Plan (1) Acute respiratory failure with hypoxia: Code(s): J96.01 - Acute respiratory failure with hypoxia Status: Acute Assessment and Plan: Secondary to congestive heart failure. COVID test negative. He does have evidence of aspiration with thin liquids. Hypoxia could be related to dysphagia/aspiration as well. Wean O2 as tolerated. Diuretics on hold due to elevated Cr. Consider abx if s/sx of PNA (cough, fever or elevated WBC). (2) Acute exacerbation of congestive heart failure: Code(s): I50.9 - Heart failure, unspecified Status: Acute Assessment and Plan: Echo here revealed EF of 55% with diastolic dysfunction Grade I and moderate to severe with moderate MR. BNP 32K. CXR showing pulmonary edema. Started on diuretics with IV Bumex and po Metolazone per nephrology. Cumulative output -5.9L. Lungs sound better but still on O2 and CXR 02/16 looks better. Continue Jamal hose. Off diuretics currently. (3) Chronic progressive renal failure, stage 4 (severe): Code(s): N18.4 - Chronic kidney disease, stage 4 (severe) Status: Chronic Assessment and Plan: Cr was in the mid-2 range in December. Creatinine 3.1 on admission and increased to 3.3 the next day. Cr running 3.3-3.6 range for many days but now 4.1-4.5 for the past 4 days and climbing despite being off his diuretics. Renal sonogram showed no hydro but distended bladder and over 600 ml residual so cath placed. No change in Cr since Gieger placed so less likely from obstructive uropathy. Nephrology following and appreciate their input. Renal biopsy on hold due to no significant elevation of autoimmune markers. Diuretic therapy held 02/15. Patient also mildly confused which could be related to the azotemia. Discussed with daughter about the possibility of HD. Appreciate nephrology input. He continues to have negative fluid balance despite being off diurectics. Will given 1L of fluid to see if this improves. (4) Aortic stenosis: Onset Date: ~12/2019 Code(s): I35.0 - Nonrheumatic aortic (valve) stenosis Status: Acute Assessment and Plan: Echo showng moderate to severe with 1 cm2 valve area. Further recommendations per cardiology. (5) Chronic anemia: Code(s): D64.9 - Anemia, unspecified Status: Acute Assessment and Plan: Patient with chronic anemia mostly in the 10-11 prior to admission. Hgb has dropped into the 9 range and stable. [place] anemia of chronic disease with iron deficiency component as well. He completed IV iron x 5 days. Continue to follow. (6) Hypertension: Code(s): I10 - Essential (primary) hypertension Status: Acute Assessment and Plan: Patient's blood pressure was reviewed on 02/18 Blood pressure well controlled. Will continue current medications with Norvasc, Coreg and Hydralazine. (7) Type 2 diabetes mellitus with peripheral neuropathy: Code(s): E11.42 - Type 2 diabetes mellitus with diabetic polyneuropathy Status: Acute Assessment and Plan: Last A1c 5.6 in June. The patient's blood glucose was reviewed on 02/18 Glucose remains reasonably well controlled and mostly under 180. Continue to monitor with AccuCheks covering with sliding scale. Hypoglycemia protocol available as needed. Continue current treatment plan. (8) Benign prostatic hyperplasia: Code(s): N40.0 - Benign prostatic hyperplasia without lower urinary tract symptoms Status: Acute Assessment and Plan: BPH with urine retention. Continue finasteride and tamsulosin. Continue geiger for now but will need follow up with urologist for voiding trial. This was discussed with Dr Coelho and the patient will see him as outpt. Dr Coelho felt the patient could have Geiger trial here and will consider if he remains hospitalized. Keep Geiger in for now for strict I/Os given the worsening [place]ham
[2020-02-19 10:55] LABS: Cryoglobulin, QL Negative (Negative)
[2020-02-19 12:38] LABS: Glucose Point of Care 262 (65-105)
[2020-02-19] MEDS: INSULIN ASPART (*BKC) 100 UNITS/ML SUB-Q ×2 (13:25→13:29)
--- NOTE | 2020-02-19 15:19 | PM.PNCARD ---
Progress Note: A&P Assessment and Plan (1) Acute exacerbation of congestive heart failure: Code(s): I50.9 - Heart failure, unspecified Status: Acute Assessment and Plan: BUN and creatinine continue to rise. Dr. Perez consulted. Diuretics stopped Wednesday02/16/2020 (2) Aortic stenosis: Onset Date: ~12/2019 Code(s): I35.0 - Nonrheumatic aortic (valve) stenosis Status: Acute Assessment and Plan: Moderate to more likely severe. Discrepant Echo findings, peak AV velocity similar, mean gradient inc from 18 to 30mmHg, STACEY 1.0cm2. Limited options. TAVR an outpatient consideration, defer to Dr. Corado. (3) Chronic progressive renal failure, stage 4 (severe): Code(s): N18.4 - Chronic kidney disease, stage 4 (severe) Status: Chronic Assessment and Plan: As above. Nephrology following. (4) Pulmonary HTN: Code(s): I27.20 - Pulmonary hypertension, unspecified Status: Acute Assessment and Plan: Moderate severity RVSP 53 mm Hg. Increased compared to echo in December 2019. (5) Hypertension: Code(s): I10 - Essential (primary) hypertension Status: Acute Assessment and Plan: Elevated but stable. Continue amlodipine, carvedilol and hydralazine. Avoid hypotension with aortic stenosis. n (6) Anemia: Code(s): D64.9 - Anemia, unspecified Status: Acute Assessment and Plan: Stable (7) Thrombocytopenia: Code(s): D69.6 - Thrombocytopenia, unspecified Status: Acute Assessment and Plan: Stable Additional Plan plan discussed Dr. King 1520 02/19/2020 Subjective Date/time seen: 02/19/20 15:19 Interval history: Follow-up for: systolic heart failure and aortic valve stenosis which is at least moderate by echo. Chronic kidney disease Date of service: 02/19/2020 Subjective : everything hurts on the inside . Denied shortness of breath, chest discomfort or lightheadedness. Review of Systems Constitutional: Constitutional: Reports fatigue and Reports weakness Eyes: Eyes: Denies blurry vision ENT: Denies dizziness and Reports hearing loss Cardiovascular: Cardiovascular: Denies chest pain and Denies lightheadedness Respiratory: Respiratory: Reports cough, Denies dyspnea on exertion and Denies wheezing Gastrointestinal: Gastrointestinal: Denies abdominal pain, Denies nausea and Denies vomiting Genitourinary: Genitourinary: Denies hematuria Musculoskeletal: Musculoskeletal: Denies back pain Integumentary/Breasts: Skin/Breast: Denies erythema and Denies rash Neurologic: Reports abnormal gait and Reports confusion Psychiatric: Psychiatric: Denies anxiety and Denies depression Endocrine: Endocrine: Denies palpitations Hematologic/Lymphatic: Hematologic/Lymphatic: Denies easy bleeding and Reports easy bruising Exam Const: General: comfortable, no acute distress and confusion Orientation/consciousness: No confusion HENMT: Head: normal to inspection and atraumatic Ears: hearing grossly impaired General nose exam: Normal external nose present Mouth: Yes dry mucous membranes Eyes: Sclera: sclerae normal Pupils: Equal, round and reactive pupils present Neck: Neck: supple Other: Transmitted systolic murmur to the carotids Resp: Effort & Inspection: normal respiratory effort and able to speak in complete sentences Auscultation: crackles bilateral at the base and no wheezes Cardio: Rate: regular rate Rhythm: regular rhythm Other: High-pitched grade 3/6 aortic valve stenosis murmur GI: GI Palp: Yes Soft to palpation Auscultation: normal bowel sounds Skin: General skin exam: normal color Neuro: General: confusion Cranial nerves: Yes Equal, round and reactive pupil
--- NOTE | 2020-02-19 15:57 | P.PNNP_ITS ---
Progress Note: A&P Assessment and Plan (1) KENNY (acute kidney injury): Code(s): N17.9 - Acute kidney failure, unspecified Status: Acute Assessment and Plan: * is this really KENNY or is this just progression of his known CKD?? * creatinine is gradually worsening over the last couple of weeks. * however, elevated ESR in association with nephrotic proteinuria is concerning * all serologies to date negative (SPE/UPE/REX/dsDNA-ab/hepatitis/ANCA) although C3 was slightly low - renal biopsy still a consideration but not urgent * Chest x-ray from yesterday shows mild pulmonary edema. * He is off diuretics. * He is eating okay but has occasional confusion spells. So he seems to have mild uremic symptoms. * Will check another creatinine tomorrow. * consider dialysis. (2) Chronic progressive renal failure, stage 4 (severe): Code(s): N18.4 - Chronic kidney disease, stage 4 (severe) Status: Chronic Assessment and Plan: * baseline creatinine runs around 2.5 - 2.8mg/dl * due to diabetes, hypertension, cardiac + vavlular heart disease (systolic + diastolic heart failure along with aortic stenosis) * we may to accept a higher creatinine in an effort to achieve euvolemia (3) Acute exacerbation of congestive heart failure: Code(s): I50.9 - Heart failure, unspecified Status: Acute Assessment and Plan: * diuresis on hold * Cardiology following * (4) Hypertension: Code(s): I10 - Essential (primary) hypertension Status: Acute Assessment and Plan: * BP seems to be doing better * follow trend for now (5) Anemia: Code(s): D64.9 - Anemia, unspecified Status: Acute Assessment and Plan: * due to iron deficiency and underlying CKD * Hemoglobin is 9.6. (6) Diabetes: Code(s): E11.9 - Type 2 diabetes mellitus without complications Status: Chronic Assessment and Plan: * on acchecks * on SSI I have been unable to get a hold of the patient's daughter to discuss my concers regarding his kidney function, azotemia and possibly uremia, and possible dialysis (dialysis might be challenging given his aortic stenosis at bedside. Will continue to follow. Subjective Date/time seen: 02/19/20 15:57 Interval history: patient is sitting up in a chair. He is tired of being in the hospital. He is eating okay he says. Review of Systems Cardiovascular: Cardiovascular: Reports no additional cardiovascular complaints Respiratory: Respiratory: Reports no additional respiratory complaints Gastrointestinal: Gastrointestinal: Reports no additional gastrointestinal complaints Genitourinary: Genitourinary: Reports no additional male genitourinary complaints Exam Narrative: Exam Narrative: General: WD/WN male in NAD Heart: normal S1 and S2; no rub Lungs: Clear anteriorly Abdomen: soft, nontender, nondistended, positive bowel sounds Extremities: no cyanosis or clubbing; trace edema Skin: No rash Objective Data Vital Signs Vital Signs: Vital Signs - 24 hr 02/18/20 19:59 02/18/20 20:00 02/18/20 20:01 Temperature Pulse Rate 74 74 Respiratory Rate Blood Pressure 149/54 H Pulse Oximetry 95 95 02/18/20 22:00 02/19/20 06:00 02/19/20 08:00 Temperature 37.0 C 36.8 C Pulse
--- NOTE | 2020-02-19 15:57 | PM.PNNEP ---
Progress Note: A&P Assessment and Plan (1) KENNY (acute kidney injury): Code(s): N17.9 - Acute kidney failure, unspecified Status: Acute Assessment and Plan: is this really KENNY or is this just progression of his known CKD?? creatinine is gradually worsening over the last couple of weeks. however, elevated ESR in association with nephrotic proteinuria is concerning all serologies to date negative (SPE/UPE/REX/dsDNA-ab/hepatitis/ANCA) although C3 was slightly low - renal biopsy still a consideration but not urgent Chest x-ray from yesterday shows mild pulmonary edema. He is off diuretics. He is eating okay but has occasional confusion spells. So he seems to have mild uremic symptoms. Will check another creatinine tomorrow. consider dialysis. (2) Chronic progressive renal failure, stage 4 (severe): Code(s): N18.4 - Chronic kidney disease, stage 4 (severe) Status: Chronic Assessment and Plan: baseline creatinine runs around 2.5 - 2.8mg/dl due to diabetes, hypertension, cardiac + vavlular heart disease (systolic + diastolic heart failure along with aortic stenosis) we may to accept a higher creatinine in an effort to achieve euvolemia (3) Acute exacerbation of congestive heart failure: Code(s): I50.9 - Heart failure, unspecified Status: Acute Assessment and Plan: diuresis on hold Cardiology following (4) Hypertension: Code(s): I10 - Essential (primary) hypertension Status: Acute Assessment and Plan: BP seems to be doing better follow trend for now (5) Anemia: Code(s): D64.9 - Anemia, unspecified Status: Acute Assessment and Plan: due to iron deficiency and underlying CKD Hemoglobin is 9.6. (6) Diabetes: Code(s): E11.9 - Type 2 diabetes mellitus without complications Status: Chronic Assessment and Plan: on acchecks on SSI I have been unable to get a hold of the patient's daughter to discuss my concers regarding his kidney function, azotemia and possibly uremia, and possible dialysis (dialysis might be challenging given his aortic stenosis at bedside. Will continue to follow. Subjective Date/time seen: 02/19/20 15:57 Interval history: patient is sitting up in a chair. He is tired of being in the hospital. He is eating okay he says. Review of Systems Cardiovascular: Cardiovascular: Reports no additional cardiovascular complaints Respiratory: Respiratory: Reports no additional respiratory complaints Gastrointestinal: Gastrointestinal: Reports no additional gastrointestinal complaints Genitourinary: Genitourinary: Reports no additional male genitourinary complaints Exam Narrative: Exam Narrative: General: WD/WN male in NAD Heart: normal S1 and S2; no rub Lungs: Clear anteriorly Abdomen: soft, nontender, nondistended, positive bowel sounds Extremities: no cyanosis or clubbing; trace edema Skin: No rash Objective Data Vital Signs Vital Signs: Vital Signs - 24 hr 02/18/20 19:59 02/18/20 20:00 02/18/20 20:01 Temperature Pulse Rate 74 74 Respiratory Rate Blood Pressure 149/54 H Pulse Oximetry 95 95 02/18/20 22:00 02/19/20 06:00 02/19/20 08:00 Temperature 37.0 C 36.8 C Pulse Rate 77 68 74 Respiratory Rate 22 H 22 H 22 H Blood Pressure 145/61 H 147/62 H Pulse Oximetry 95 94 94 02/19/20 09:21 Temperature Pulse Rate 68 Respiratory Rate Blood Pressure Pulse Oximetry Intake/Output Intake/Output: Intake & Output 02/16/20 02/17/20 02/18/20 02/19/20 23:59 23:59 23:59 23:59 Intake Total 580 920 820 660 Output Total 1400 1325 1200 800 Balance -820 -405 -380 -140 Meds/Results Medications: Active Medications Generic Name Dose Route Start Last Admin Trade Name [place] PRN Reason Stop Dose Admin Acetaminophen 650 mg 02/06/20 20:27 02/17/20 07:49 Acetaminophen 325 Mg Tablet PO
[2020-02-19 17:51] LABS: Glucose Point of Care 148 (65-105)
[2020-02-19] MEDS: TAMSULOSIN HCL 0.4 MG CAPSULE PO (20:08)
[2020-02-19] MEDS: VITAMIN B COMPLEX CAPSULE 1 CAP PO (20:08)
[2020-02-19 20:21] LABS: Glucose Point of Care 169 (65-105)
[2020-02-20] MEDS: GABAPENTIN 300 MG CAPSULE 600 MG PO ×3 (05:21→20:54)
[2020-02-20 06:00] VITALS: BP 146/60; PULSE 69; RESP 22; TEMP 36.7; O2SAT 95
[2020-02-20 06:24] LABS: Hematocrit 29.5 % (42.0-52.0); Hemoglobin 9.6 g/dL (14.0-18.0); Mean Corpuscular HGB Conc 32.5 g/dl (32-36); Mean Corpuscular Hemoglobin 32.2 pg (26-34); Mean Platelet Volume 10.9 fl (7.4-10.4); Platelet Count Result 158 k/mm3 (150-375); Red Blood Count 2.98 M/mm3 (4.6-6.20); Red Cell Distribution Width 14.7 % (11.5-14.5); White Blood Count 7.5 K/mm3 (4.5-10.0)
[2020-02-20 06:41] LABS: Anion Gap 9 mmol/L (8-16); Blood Urea Nitrogen 104 mg/dL (9-20); Calcium 8.5 mg/dL (8.4-10.2); Carbon Dioxide 32 mmol/L (22-30); Chloride 98 mmol/L (98-107); Estimated CRCL calculation 14 ml/min; Estimated Glomerular Filt Rate 13; Glucose 145 mg/dL (75-110); Potassium 3.9 mmol/L (3.4-5.0); Sodium 139 mmol/L (137-145)
--- NOTE | 2020-02-20 08:25 | P.PNNP_ITS ---
Progress Note: A&P Assessment and Plan (1) KENNY (acute kidney injury): Code(s): N17.9 - Acute kidney failure, unspecified Status: Acute Assessment and Plan: * is this really KENNY or is this just progression of his known CKD?? * creatinine is gradually worsening over the last couple of weeks. * however, elevated ESR in association with nephrotic proteinuria is concerning * all serologies to date negative (SPE/UPE/REX/dsDNA-ab/hepatitis/ANCA) although C3 was slightly low - renal biopsy still a consideration but not urgent * Chest x-ray from yesterday shows mild pulmonary edema * Discussed with Dr. Villar last night. There is some possibility the patient is aspirating which could make the chest x-ray look like this. His intake/output are continuously negative. * Will try a little bit of IV fluids to see if we can improve BUN creatinine. * If things do not get better soon we will need to do dialysis. (2) Chronic progressive renal failure, stage 4 (severe): Code(s): N18.4 - Chronic kidney disease, stage 4 (severe) Status: Chronic Assessment and Plan: * baseline creatinine runs around 2.5 - 2.8mg/dl * due to diabetes, hypertension, cardiac + vavlular heart disease (systolic + diastolic heart failure along with aortic stenosis) (3) Acute exacerbation of congestive heart failure: Code(s): I50.9 - Heart failure, unspecified Status: Acute Assessment and Plan: * diuresis on hold * Cardiology following (4) Hypertension: Code(s): I10 - Essential (primary) hypertension Status: Acute Assessment and Plan: * BP seems to be doing better * follow trend for now (5) Anemia: Code(s): D64.9 - Anemia, unspecified Status: Acute Assessment and Plan: * due to iron deficiency and underlying CKD * Hemoglobin is 9.6. (6) Diabetes: Code(s): E11.9 - Type 2 diabetes mellitus without complications Status: Chronic Assessment and Plan: * on acchecks * on SSI I have been unable to get a hold of the patient's daughter to discuss my concers regarding his kidney function, azotemia and possibly uremia, and possible dialysis (dialysis might be challenging given his aortic stenosis at bedside. Will continue to follow. Subjective Date/time seen: 02/20/20 08:25 Interval history: patient is lying in bed. No shortness of breath. Review of Systems Cardiovascular: Cardiovascular: Reports no additional cardiovascular complaints Respiratory: Respiratory: Reports no additional respiratory complaints Gastrointestinal: Gastrointestinal: Reports no additional gastrointestinal complaints Genitourinary: Genitourinary: Reports no additional male genitourinary compl aints Exam Narrative: Exam Narrative: General: WD/WN male in NAD Heart: normal S1 and S2; no rub Lungs: Clear anteriorly Abdomen: soft, nontender, nondistended, positive bowel sounds Extremities: no cyanosis or clubbing; trace edema Skin: No rash or subcu nodules Objective Data Vital Signs Vital Signs: Vital Signs - 24 hr 02/19/20 09:21 02/19/20 14:00 02/19/20 20:00 Temperature 36.6 C Pulse Rate 68 66 Respiratory Rate 20 Blood Pressure 142/63 H Pulse Oximetry 94 95 02/19/20 20:08 02/19/20 22:00 02/20/20 06:00 Temperature 36.6 C 36.7 C
--- NOTE | 2020-02-20 08:25 | PM.PNNEP ---
Progress Note: A&P Assessment and Plan (1) KENNY (acute kidney injury): Code(s): N17.9 - Acute kidney failure, unspecified Status: Acute Assessment and Plan: is this really KENNY or is this just progression of his known CKD?? creatinine is gradually worsening over the last couple of weeks. however, elevated ESR in association with nephrotic proteinuria is concerning all serologies to date negative (SPE/UPE/REX/dsDNA-ab/hepatitis/ANCA) although C3 was slightly low - renal biopsy still a consideration but not urgent Chest x-ray from yesterday shows mild pulmonary edema Discussed with Dr. Villar last night. There is some possibility the patient is aspirating which could make the chest x-ray look like this. His intake/output are continuously negative. Will try a little bit of IV fluids to see if we can improve BUN creatinine. If things do not get better soon we will need to do dialysis. (2) Chronic progressive renal failure, stage 4 (severe): Code(s): N18.4 - Chronic kidney disease, stage 4 (severe) Status: Chronic Assessment and Plan: baseline creatinine runs around 2.5 - 2.8mg/dl due to diabetes, hypertension, cardiac + vavlular heart disease (systolic + diastolic heart failure along with aortic stenosis) (3) Acute exacerbation of congestive heart failure: Code(s): I50.9 - Heart failure, unspecified Status: Acute Assessment and Plan: diuresis on hold Cardiology following (4) Hypertension: Code(s): I10 - Essential (primary) hypertension Status: Acute Assessment and Plan: BP seems to be doing better follow trend for now (5) Anemia: Code(s): D64.9 - Anemia, unspecified Status: Acute Assessment and Plan: due to iron deficiency and underlying CKD Hemoglobin is 9.6. (6) Diabetes: Code(s): E11.9 - Type 2 diabetes mellitus without complications Status: Chronic Assessment and Plan: on acchecks on SSI I have been unable to get a hold of the patient's daughter to discuss my concers regarding his kidney function, azotemia and possibly uremia, and possible dialysis (dialysis might be challenging given his aortic stenosis at bedside. Will continue to follow. Subjective Date/time seen: 02/20/20 08:25 Interval history: patient is lying in bed. No shortness of breath. Review of Systems Cardiovascular: Cardiovascular: Reports no additional cardiovascular complaints Respiratory: Respiratory: Reports no additional respiratory complaints Gastrointestinal: Gastrointestinal: Reports no additional gastrointestinal complaints Genitourinary: Genitourinary: Reports no additional male genitourinary complaints Exam Narrative: Exam Narrative: General: WD/WN male in NAD Heart: normal S1 and S2; no rub Lungs: Clear anteriorly Abdomen: soft, nontender, nondistended, positive bowel sounds Extremities: no cyanosis or clubbing; trace edema Skin: No rash or subcu nodules Objective Data Vital Signs Vital Signs: Vital Signs - 24 hr 02/19/20 09:21 02/19/20 14:00 02/19/20 20:00 Temperature 36.6 C Pulse Rate 68 66 Respiratory Rate 20 Blood Pressure 142/63 H Pulse Oximetry 94 95 02/19/20 20:08 02/19/20 22:00 02/20/20 06:00 Temperature 36.6 C 36.7 C Pulse Rate 66 63 69 Respiratory Rate 20 22 H Blood Pressure 144/63 H 146/60 H Pulse Oximetry 90 95 Intake/Output Intake/Output: Intake & Output 02/17/20 02/18/20 02/19/20 02/20/20 23:59 23:59 23:59 23:59 Intake Total 858 654 0177 150 Output Total 1325 1200 1200 450 Balance -405 -380 -180 -300 Meds/Results Medications: Active Medications Generic Name Dose Route Start Last Admin Trade Name Freq PRN Reason Stop Dose Admin Acetaminophen 650 mg 02/06/20 20:27 02/17/20 07:49 Acetaminophen 325 Mg Tablet PO 650 mg Q12H PRN Administration Pain Amlodipine Besylate 5 mg 02/07/20 0
[2020-02-20] MEDS: ATORVASTATIN 10 MG TABLET PO (09:00)
[2020-02-20] MEDS: DOCUSATE SODIUM 100 MG CAPSULE PO ×2 (09:00→20:53)
[2020-02-20] MEDS: LORATADINE 10 MG TABLET PO (09:00)
[2020-02-20] MEDS: THERAPEUTIC MULTIVITAMINS/MINERALS TAB (*BKC) 1 TABLET PO (09:00)
[2020-02-20] MEDS: amLODIPine BESYLATE 5 MG TABLET PO (09:00)
[2020-02-20] MEDS: hydrALAZINE HCL 25 MG TABLET PO ×3 (09:00→17:46)
[2020-02-20] MEDS: FINASTERIDE 5 MG TABLET PO (09:00)
[2020-02-20 09:01] VITALS: PULSE 64
[2020-02-20 09:01] LABS: Glucose Point of Care 134 (65-105)
[2020-02-20] MEDS: PANTOPRAZOLE 40 MG TABLET PO (09:01)
[2020-02-20] MEDS: carvediloL 25 MG TABLET PO ×2 (09:01→20:52)
[2020-02-20] MEDS: HEPARIN SODIUM 5,000 UNITS/ML VIAL 5000 UNITS SUB-Q ×2 (09:02→20:53)
--- NOTE | 2020-02-20 09:23 | PCPTNOTE ---
Attempted therapy session, Pt unavailable due to RN starting a new IV. Will attempt again later.
[2020-02-20] MEDS: SODIUM CHLORIDE 0.9% IV 1,000 ML 75 ML IV CONT (11:30)
[2020-02-20 11:54] VITALS: O2SAT 90
--- NOTE | 2020-02-20 12:27 | PM.IMPN ---
Progress Note: A&P Assessment and Plan (1) Acute respiratory failure with hypoxia: Code(s): J96.01 - Acute respiratory failure with hypoxia Status: Acute Assessment and Plan: Secondary to congestive heart failure. COVID test negative. He does have evidence of aspiration with thin liquids. Hypoxia could be related to dysphagia/aspiration as well. Wean O2 as tolerated. Diuretics on hold due to elevated Cr. Consider abx if s/sx of PNA (cough, fever or elevated WBC). (2) Acute exacerbation of congestive heart failure: Code(s): I50.9 - Heart failure, unspecified Status: Acute Assessment and Plan: Echo here revealed EF of 55% with diastolic dysfunction Grade I and moderate to severe with moderate MR. BNP 32K. CXR showing pulmonary edema. Started on diuretics with IV Bumex and po Metolazone per nephrology. Cumulative output -5.9L. Lungs sound better but still on O2 and CXR 02/16 looks better. Continue Jamal hose. Off diuretics currently. (3) Chronic progressive renal failure, stage 4 (severe): Code(s): N18.4 - Chronic kidney disease, stage 4 (severe) Status: Chronic Assessment and Plan: Cr was in the mid-2 range in December. Creatinine 3.1 on admission and increased to 3.3 the next day. Cr running 3.3-3.6 range for many days but now 4.1-4.5 for the past 4 days and climbing despite being off his diuretics. Renal sonogram showed no hydro but distended bladder and over 600 ml residual so cath placed. No change in Cr since Geiger placed so less likely from obstructive uropathy. Nephrology following and appreciate their input. Renal biopsy on hold due to no significant elevation of autoimmune markers. Diuretic therapy held 02/15. Patient also mildly confused which could be related to the azotemia. Discussed with daughter about the possibility of HD. Appreciate nephrology input. He continues to have negative fluid balance despite being off diurectics. got 1L saline without change (4) Aortic stenosis: Onset Date: ~12/2019 Code(s): I35.0 - Nonrheumatic aortic (valve) stenosis Status: Acute Assessment and Plan: Echo showng moderate to severe with 1 cm2 valve area. Further recommendations per cardiology. (5) Chronic anemia: Code(s): D64.9 - Anemia, unspecified Status: Acute Assessment and Plan: Patient with chronic anemia mostly in the 10-11 prior to admission. Hgb has dropped into the 9 range and stable. [place] anemia of chronic disease with iron deficiency component as well. He completed IV iron x 5 days. Continue to follow. (6) Hypertension: Code(s): I10 - Essential (primary) hypertension Status: Acute Assessment and Plan: Patient's blood pressure was reviewed on 02/19 Blood pressure well controlled. Will continue current medications with Norvasc, Coreg and Hydralazine. (7) Type 2 diabetes mellitus with peripheral neuropathy: Code(s): E11.42 - Type 2 diabetes mellitus with diabetic polyneuropathy Status: Acute Assessment and Plan: Last A1c 5.6 in June. The patient's blood glucose was reviewed on 02/19 Glucose remains reasonably well controlled and mostly under 180. Continue to monitor with AccuCheks covering with sliding scale. Hypoglycemia protocol available as needed. Continue current treatment plan. (8) Benign prostatic hyperplasia: Code(s): N40.0 - Benign prostatic hyperplasia without lower urinary tract symptoms Status: Acute Assessment and Plan: BPH with urine retention. Continue finasteride and tamsulosin. Continue geiger for now but will need follow up with urologist for voiding trial. This was discussed with Dr Coelho and the patient will see him as outpt. Dr Coelho felt the patient could have Geiger trial here and will consider if he remains hospitalized. Keep Geiger in for now for strict I/Os given the worsening renal function (9
--- NOTE | 2020-02-20 13:06 | PCSTNOTE ---
Therapist requested physician allow for discharge from direct Speech Therapy at this time as patient is unable to participate in direct Speech Therapy tasks. Dr. Agrawal voiced understanding and agreement with discharge. Please contact us with any future concerns.
[2020-02-20] MEDS: ACETAMINOPHEN 325 MG TABLET 650 MG PO (13:17)
[2020-02-20 13:38] LABS: Glucose Point of Care 200 (65-105)
--- NOTE | 2020-02-20 13:45 | PCDIET ---
Nutrition Follow-Up Complete: Goal: Meet total nutrition needs Pt current nutrition is Heart healthy, Mildly Thick liquids Nutrition recommendation: Agree with diet, will add Enlive 1x day Last recorded weight is 101.3 kg, down from assessed wt of 111.1kg on 02/12 Bowel Motility: 02/18 Labs Reviewed: 02/19 Hgb 9.6, Hct 29.5, GFR 13, Bun 104, Cr 4.50, Glucose 145 Meds Noted:Oscal, Colace, Norvasc, Heparin, Zofran, Novolog, MTV, B complex, Protonix Additional Notes: Pt with repeat MBS today. Speech recommends continuing mildly thick liquids. Pt eating an average of 67% of meals a day. Recommend nutrition supplement due to wt loss and reduced intake. Pt agreeable. We will send Enlive once day to provide additional calories. Agree with heart healthy diet at this time. If blood sugar increases, recommend diabetic diet be added. We will continue to follow PO intake, wt, and labs every five days.
[2020-02-20 14:00] VITALS: BP 138/60; PULSE 66; RESP 20; TEMP 36.9; O2SAT 94
[2020-02-20 20:52] VITALS: PULSE 66
[2020-02-20] MEDS: TAMSULOSIN HCL 0.4 MG CAPSULE PO (20:53)
[2020-02-20] MEDS: VITAMIN B COMPLEX CAPSULE 1 CAP PO (20:54)
[2020-02-20 21:54] LABS: Glucose Point of Care 183 (65-105)
[2020-02-20 22:00] VITALS: BP 139/64; PULSE 68; RESP 16; TEMP 36.6; O2SAT 96
[2020-02-20 22:44] LABS: Glucose Point of Care 152 (65-105)
[2020-02-21] VITALS (8 sets, daily range): BP systolic 129–145; BP diastolic 57–64; PULSE 60–86; RESP 18–20; TEMP 35.8–36.9; O2SAT 91–95
[2020-02-21] MEDS: GABAPENTIN 300 MG CAPSULE 600 MG PO ×3 (06:10→21:30)
[2020-02-21 07:01] LABS: Anion Gap 9 mmol/L (8-16); Blood Urea Nitrogen 105 mg/dL (9-20); Calcium 8.5 mg/dL (8.4-10.2); Carbon Dioxide 32 mmol/L (22-30); Chloride 99 mmol/L (98-107); Estimated CRCL calculation 14 ml/min; Estimated Glomerular Filt Rate 13; Glucose 127 mg/dL (75-110); Potassium 3.7 mmol/L (3.4-5.0); Sodium 140 mmol/L (137-145)
--- NOTE | 2020-02-21 08:20 | P.PNNP_ITS ---
Progress Note: A&P Assessment and Plan (1) KENNY (acute kidney injury): Code(s): N17.9 - Acute kidney failure, unspecified Status: Acute Assessment and Plan: * is this really KENNY or is this just progression of his known CKD?? * creatinine is gradually worsening over the last couple of weeks. * however, elevated ESR in association with nephrotic proteinuria is concerning * all serologies to date negative (SPE/UPE/REX/dsDNA-ab/hepatitis/ANCA) although C3 was slightly low - renal biopsy still a consideration but not urgent * Chest x-ray from yesterday shows mild pulmonary edema, however if there is a possibility of aspiration. * Discussed with Dr. Agrawal at length. * Will try another day with IV fluids today. Hold off on dialysis for now. I will talk with daughter. (2) Chronic progressive renal failure, stage 4 (severe): Code(s): N18.4 - Chronic kidney disease, stage 4 (severe) Status: Chronic Assessment and Plan: * baseline creatinine runs around 2.5 - 2.8mg/dl * due to diabetes, hypertension, cardiac + vavlular heart disease (systolic + diastolic heart failure along with aortic stenosis) (3) Acute exacerbation of congestive heart failure: Code(s): I50.9 - Heart failure, unspecified Status: Acute Assessment and Plan: * diuresis on hold * Cardiology following * Trying some fluid (4) Hypertension: Code(s): I10 - Essential (primary) hypertension Status: Acute Assessment and Plan: * BP seems to be doing better * follow trend for now (5) Anemia: Code(s): D64.9 - Anemia, unspecified Status: Acute Assessment and Plan: * due to iron deficiency and underlying CKD * Hemoglobin is 9.6. (6) Diabetes: Code(s): E11.9 - Type 2 diabetes mellitus without complications Status: Chronic Assessment and Plan: * on acchecks * on SSI I have been unable to get a hold of the patient's daughter to discuss my concers regarding his kidney function, azotemia and possibly uremia, and possible dialysis (dialysis might be challenging given his aortic stenosis at bedside. Will continue to follow. Subjective Date/time seen: 02/21/20 08:20 Interval history: Patient feels better today. He seems more lucent. He knows where he is what the date is and who the president is and even went into the controversy about the election Review of Systems Cardiovascular: Cardiovascular: Reports no additional cardiovascular complaints Respiratory: Respiratory: Reports no additional respiratory complaints Gastrointestinal: Gastrointestinal: Reports no additional gastrointestinal complaints Genitourinary: Genitourinary: Reports no additional male genitourinary com plaints Exam Narrative: Exam Narrative: General: WD/WN male in NAD Heart: normal S1 and S2; no rub Lungs: Clear anteriorly Abdomen: soft, nontender, nondistended, positive bowel sounds Extremities: no cyanosis or clubbing; trace edema Skin: No rash or subcu nodules Objective Data Vital Signs Vital Signs: Vital Signs - 24 hr 02/20/20 09:01 02/20/20 11:54 02/20/20 14:00 Temperature 36.9 C Pulse Rate 64 66 Respiratory Rate 20 Blood Pressure 138/60 Pulse Oximetry 90 94 02/20/20 20:52 02/20/20 22:00 02/21/20 06:00 Temperature 36.6 C 36.
--- NOTE | 2020-02-21 08:20 | PM.PNNEP ---
Progress Note: A&P Assessment and Plan (1) KENNY (acute kidney injury): Code(s): N17.9 - Acute kidney failure, unspecified Status: Acute Assessment and Plan: is this really KENNY or is this just progression of his known CKD?? creatinine is gradually worsening over the last couple of weeks. however, elevated ESR in association with nephrotic proteinuria is concerning all serologies to date negative (SPE/UPE/REX/dsDNA-ab/hepatitis/ANCA) although C3 was slightly low - renal biopsy still a consideration but not urgent Chest x-ray from yesterday shows mild pulmonary edema, however if there is a possibility of aspiration. Discussed with Dr. Agrawal at length. Will try another day with IV fluids today. Hold off on dialysis for now. I will talk with daughter. (2) Chronic progressive renal failure, stage 4 (severe): Code(s): N18.4 - Chronic kidney disease, stage 4 (severe) Status: Chronic Assessment and Plan: baseline creatinine runs around 2.5 - 2.8mg/dl due to diabetes, hypertension, cardiac + vavlular heart disease (systolic + diastolic heart failure along with aortic stenosis) (3) Acute exacerbation of congestive heart failure: Code(s): I50.9 - Heart failure, unspecified Status: Acute Assessment and Plan: diuresis on hold Cardiology following Trying some fluid (4) Hypertension: Code(s): I10 - Essential (primary) hypertension Status: Acute Assessment and Plan: BP seems to be doing better follow trend for now (5) Anemia: Code(s): D64.9 - Anemia, unspecified Status: Acute Assessment and Plan: due to iron deficiency and underlying CKD Hemoglobin is 9.6. (6) Diabetes: Code(s): E11.9 - Type 2 diabetes mellitus without complications Status: Chronic Assessment and Plan: on acchecks on SSI I have been unable to get a hold of the patient's daughter to discuss my concers regarding his kidney function, azotemia and possibly uremia, and possible dialysis (dialysis might be challenging given his aortic stenosis at bedside. Will continue to follow. Subjective Date/time seen: 02/21/20 08:20 Interval history: Patient feels better today. He seems more lucent. He knows where he is what the date is and who the president is and even went into the controversy about the election Review of Systems Cardiovascular: Cardiovascular: Reports no additional cardiovascular complaints Respiratory: Respiratory: Reports no additional respiratory complaints Gastrointestinal: Gastrointestinal: Reports no additional gastrointestinal complaints Genitourinary: Genitourinary: Reports no additional male genitourinary complaints Exam Narrative: Exam Narrative: General: WD/WN male in NAD Heart: normal S1 and S2; no rub Lungs: Clear anteriorly Abdomen: soft, nontender, nondistended, positive bowel sounds Extremities: no cyanosis or clubbing; trace edema Skin: No rash or subcu nodules Objective Data Vital Signs Vital Signs: Vital Signs - 24 hr 02/20/20 09:01 02/20/20 11:54 02/20/20 14:00 Temperature 36.9 C Pulse Rate 64 66 Respiratory Rate 20 Blood Pressure 138/60 Pulse Oximetry 90 94 02/20/20 20:52 02/20/20 22:00 02/21/20 06:00 Temperature 36.6 C 36.3 C L Pulse Rate 66 68 67 Respiratory Rate 16 18 Blood Pressure 139/64 129/57 L Pulse Oximetry 96 93 02/21/20 07:45 Temperature Pulse Rate Respiratory Rate Blood Pressure Pulse Oximetry 92 Intake/Output Intake/Output: Intake & Output 02/18/20 02/19/20 02/20/20 02/21/20 23:59 23:59 23:59 23:59 Intake Total 820 1020 1000 400 Output Total 1200 1200 900 800 Balance -380 -180 100 -400 Meds/Results Medications: Active Medications Generic Name Dose Route Start Last Admin Trade Name Freq PRN Reason Stop Dose Admin Acetaminophen 650 mg 02/06/20 20:27 02/20/20 13:17 Acetaminophen 325
[2020-02-21] MEDS: SODIUM CHLORIDE 0.9% IV 1,000 ML 100 ML IV CONT (09:01)
[2020-02-21] MEDS: amLODIPine BESYLATE 5 MG TABLET PO (09:05)
[2020-02-21] MEDS: ATORVASTATIN 10 MG TABLET PO (09:05)
[2020-02-21] MEDS: carvediloL 25 MG TABLET PO ×2 (09:05→20:10)
[2020-02-21] MEDS: DOCUSATE SODIUM 100 MG CAPSULE PO ×2 (09:06→20:11)
[2020-02-21] MEDS: FINASTERIDE 5 MG TABLET PO (09:06)
[2020-02-21] MEDS: HEPARIN SODIUM 5,000 UNITS/ML VIAL 5000 UNITS SUB-Q ×2 (09:07→20:55)
[2020-02-21] MEDS: THERAPEUTIC MULTIVITAMINS/MINERALS TAB (*BKC) 1 TABLET PO (09:07)
[2020-02-21] MEDS: hydrALAZINE HCL 25 MG TABLET PO ×3 (09:07→17:17)
[2020-02-21] MEDS: LORATADINE 10 MG TABLET PO (09:07)
[2020-02-21] MEDS: PANTOPRAZOLE 40 MG TABLET PO (09:08)
[2020-02-21 09:26] LABS: Glucose Point of Care 184 (65-105)
[2020-02-21 12:54] LABS: Glucose Point of Care 179 (65-105)
--- NOTE | 2020-02-21 13:24 | PM.IMPN ---
Progress Note: A&P Assessment and Plan (1) Acute respiratory failure with hypoxia: Code(s): J96.01 - Acute respiratory failure with hypoxia Status: Acute Assessment and Plan: Secondary to congestive heart failure. COVID test negative. He does have evidence of aspiration with thin liquids. Hypoxia could be related to dysphagia/aspiration as well. Wean O2 as tolerated. Diuretics on hold due to elevated Cr. Consider abx if s/sx of PNA (cough, fever or elevated WBC). (2) Acute exacerbation of congestive heart failure: Code(s): I50.9 - Heart failure, unspecified Status: Acute Assessment and Plan: Echo here revealed EF of 55% with diastolic dysfunction Grade I and moderate to severe with moderate MR. BNP 32K. CXR showing pulmonary edema. Started on diuretics with IV Bumex and po Metolazone per nephrology. Cumulative output -5.9L. Lungs sound better but still on O2 and CXR 02/16 looks better. Continue Jamal hose. Off diuretics currently. (3) Chronic progressive renal failure, stage 4 (severe): Code(s): N18.4 - Chronic kidney disease, stage 4 (severe) Status: Chronic Assessment and Plan: Cr was in the mid-2 range in December. Creatinine 3.1 on admission and increased to 3.3 the next day. Cr running 3.3-3.6 range for many days but now 4.1-4.5 for the past 4 days and climbing despite being off his diuretics. Renal sonogram showed no hydro but distended bladder and over 600 ml residual so cath placed. No change in Cr since Geiger placed so less likely from obstructive uropathy. Nephrology following and appreciate their input. Renal biopsy on hold due to no significant elevation of autoimmune markers. Diuretic therapy held 02/15. Patient also mildly confused which could be related to the azotemia. . Appreciate nephrology input. He continues to have negative fluid balance despite being off diurectics. got 1L saline without change last 2 days (4) Aortic stenosis: Onset Date: ~12/2019 Code(s): I35.0 - Nonrheumatic aortic (valve) stenosis Status: Acute Assessment and Plan: Echo showng moderate to severe with 1 cm2 valve area. Further recommendations per cardiology. (5) Chronic anemia: Code(s): D64.9 - Anemia, unspecified Status: Acute Assessment and Plan: Patient with chronic anemia mostly in the 10-11 prior to admission. Hgb has dropped into the 9 range and stable. [place] anemia of chronic disease with iron deficiency component as well. He completed IV iron x 5 days. Continue to follow. (6) Hypertension: Code(s): I10 - Essential (primary) hypertension Status: Acute Assessment and Plan: Patient's blood pressure was reviewed on 02/20 Blood pressure well controlled. Will continue current medications with Norvasc, Coreg and Hydralazine. (7) Type 2 diabetes mellitus with peripheral neuropathy: Code(s): E11.42 - Type 2 diabetes mellitus with diabetic polyneuropathy Status: Acute Assessment and Plan: Last A1c 5.6 in June. The patient's blood glucose was reviewed on 02/19 Glucose remains reasonably well controlled and mostly under 180. Continue to monitor with AccuCheks covering with sliding scale. Hypoglycemia protocol available as needed. Continue current treatment plan. (8) Benign prostatic hyperplasia: Code(s): N40.0 - Benign prostatic hyperplasia without lower urinary tract symptoms Status: Acute Assessment and Plan: BPH with urine retention. Continue finasteride and tamsulosin. Continue geiger for now but will need follow up with urologist for voiding trial. This was discussed with Dr Coelho and the patient will see him as outpt. Dr Coelho felt the patient could have Geiger trial here and will consider if he remains hospitalized. Keep Geiger in for now for strict I/Os given the worsening renal function (9) DVT prophylaxis: Code(s): Z29.9
[2020-02-21] MEDS: INSULIN ASPART (*BKC) 100 UNITS/ML SUB-Q (17:21)
[2020-02-21 17:22] LABS: Glucose Point of Care 213 (65-105)
[2020-02-21] MEDS: TAMSULOSIN HCL 0.4 MG CAPSULE PO (20:11)
[2020-02-21] MEDS: VITAMIN B COMPLEX CAPSULE 1 CAP PO (20:12)
[2020-02-21] MEDS: ACETAMINOPHEN 325 MG TABLET 650 MG PO (21:29)
[2020-02-22] VITALS (8 sets, daily range): BP systolic 139–151; BP diastolic 62–75; PULSE 66–81; RESP 18–20; TEMP 36.6–37.2; O2SAT 91–97
[2020-02-22 00:39] LABS: Glucose Point of Care 190 (65-105)
[2020-02-22] MEDS: GABAPENTIN 300 MG CAPSULE 600 MG PO ×3 (05:42→22:16)
[2020-02-22 06:44] LABS: Hemoglobin 9.8 g/dL (14.0-18.0); Mean Corpuscular HGB Conc 32.7 g/dl (32-36); Mean Corpuscular Hemoglobin 32.3 pg (26-34); Platelet Count Result 155 k/mm3 (150-375); Red Blood Count 3.03 M/mm3 (4.6-6.20); Red Cell Distribution Width 14.9 % (11.5-14.5); White Blood Count 11.8 K/mm3 (4.5-10.0)
[2020-02-22 06:57] LABS: Albumin Level 3.4 g/dL (3.5-5.1); Anion Gap 8 mmol/L (8-16); Blood Urea Nitrogen 103 mg/dL (9-20); Calcium 8.5 mg/dL (8.4-10.2); Carbon Dioxide 31 mmol/L (22-30); Chloride 102 mmol/L (98-107); Estimated CRCL calculation 15 ml/min; Estimated Glomerular Filt Rate 14; Glucose 172 mg/dL (75-110); Sodium 141 mmol/L (137-145)
[2020-02-22 08:07] LABS: Glucose Point of Care 184 (65-105)
[2020-02-22 08:31] LABS: Glucose Point of Care 171 (65-105)
--- NOTE | 2020-02-22 08:48 | P.PNNP_ITS ---
Progress Note: A&P Assessment and Plan (1) KENNY (acute kidney injury): Code(s): N17.9 - Acute kidney failure, unspecified Status: Acute Assessment and Plan: * is this really KENNY or is this just progression of his known CKD?? * creatinine is gradually worsening over the last couple of weeks. * however, elevated ESR in association with nephrotic proteinuria is concerning * all serologies to date negative (SPE/UPE/REX/dsDNA-ab/hepatitis/ANCA) although C3 was slightly low - renal biopsy still a consideration but not urgent * He appears volume overloaded. * His creatinine improved slightly but not very much. * He has asterixis and confusion and I think this is all uremia. * He has conversational dyspnea which has worsened with fluid. * I am afraid of giving him any more fluid as I think it will make all of this worse. * I suggest we start dialysis. This will make the uremic symptoms better and we can take fluid off as well. * We discussed the risks of low blood pressure stroke heart attack or . We discussed benefits, easier breathing, improved cognition, and no more asterixis. We discussed alternatives, i.e. hospice, and the procedure. He wants to talk with his daughter. * I talked with the daughter, Tarah, after my conversation with Mr. Leon. And we reviewed the above as well including risks benefits alternatives. Since he has substantial aortic stenosis, this make the dialysis a little bit riskier but still if he wants to feel better and do better I think dialysis would benefit him. She will talk with patient. (2) Chronic progressive renal failure, stage 4 (severe): Code(s): N18.4 - Chronic kidney disease, stage 4 (severe) Status: Chronic Assessment and Plan: * baseline creatinine runs around 2.5 - 2.8mg/dl * due to diabetes, hypertension, cardiac + vavlular heart disease (systolic + diastolic heart failure along with aortic stenosis) (3) Acute exacerbation of congestive heart failure: Code(s): I50.9 - Heart failure, unspecified Status: Acute Assessment and Plan: * diuresis on hold * Cardiology following * Discussed with Meaghan. (4) Hypertension: Code(s): I10 - Essential (primary) hypertension Status: Acute Assessment and Plan: * BP seems to be doing better * follow trend for now (5) Anemia: Code(s): D64.9 - Anemia, unspecified Status: Acute Assessment and Plan: * due to iron deficiency and underlying CKD * Hemoglobin is 9.8. (6) Diabetes: Code(s): E11.9 - Type 2 diabetes mellitus without complications Status: Chronic Assessment and Plan: * on acchecks * on SSI Subjective Date/time seen: 02/22/20 11:48 Interval history: Patient looks a little more short of breath today. Conversation does not fluids well today. Denies shortness of breath but does have conversational dyspnea. Review of Systems Cardiovascular: Cardiovascular: Reports no additional cardiovascular complaints Respiratory: Respiratory: Reports no additional respiratory complaints Gastrointestinal: Gastrointestinal: Reports no additional gastrointestinal complaints Genitourinary: Genitourinary: Reports no additional male genitourinary complaints Exam Narrative: Exam Narrative: General: WD/WN male in NAD Heart: normal S1 and S2; no rub 3/6 systolic ejection murmur Lungs: Few crackles at the bases Abdomen: soft, nontender, nondistended, positive bowel sounds
--- NOTE | 2020-02-22 08:48 | PM.PNNEP ---
Progress Note: A&P Assessment and Plan (1) KENNY (acute kidney injury): Code(s): N17.9 - Acute kidney failure, unspecified Status: Acute Assessment and Plan: is this really KENNY or is this just progression of his known CKD?? creatinine is gradually worsening over the last couple of weeks. however, elevated ESR in association with nephrotic proteinuria is concerning all serologies to date negative (SPE/UPE/REX/dsDNA-ab/hepatitis/ANCA) although C3 was slightly low - renal biopsy still a consideration but not urgent He appears volume overloaded. His creatinine improved slightly but not very much. He has asterixis and confusion and I think this is all uremia. He has conversational dyspnea which has worsened with fluid. I am afraid of giving him any more fluid as I think it will make all of this worse. I suggest we start dialysis. This will make the uremic symptoms better and we can take fluid off as well. We discussed the risks of low blood pressure stroke heart attack or . We discussed benefits, easier breathing, improved cognition, and no more asterixis. We discussed alternatives, i.e. hospice, and the procedure. He wants to talk with his daughter. I talked with the daughter, Tarah, after my conversation with Mr. Leon. And we reviewed the above as well including risks benefits alternatives. Since he has substantial aortic stenosis, this make the dialysis a little bit riskier but still if he wants to feel better and do better I think dialysis would benefit him. She will talk with patient. (2) Chronic progressive renal failure, stage 4 (severe): Code(s): N18.4 - Chronic kidney disease, stage 4 (severe) Status: Chronic Assessment and Plan: baseline creatinine runs around 2.5 - 2.8mg/dl due to diabetes, hypertension, cardiac + vavlular heart disease (systolic + diastolic heart failure along with aortic stenosis) (3) Acute exacerbation of congestive heart failure: Code(s): I50.9 - Heart failure, unspecified Status: Acute Assessment and Plan: diuresis on hold Cardiology following Discussed with Meaghan. (4) Hypertension: Code(s): I10 - Essential (primary) hypertension Status: Acute Assessment and Plan: BP seems to be doing better follow trend for now (5) Anemia: Code(s): D64.9 - Anemia, unspecified Status: Acute Assessment and Plan: due to iron deficiency and underlying CKD Hemoglobin is 9.8. (6) Diabetes: Code(s): E11.9 - Type 2 diabetes mellitus without complications Status: Chronic Assessment and Plan: on acchecks on SSI Subjective Date/time seen: 02/22/20 11:48 Interval history: Patient looks a little more short of breath today. Conversation does not fluids well today. Denies shortness of breath but does have conversational dyspnea. Review of Systems Cardiovascular: Cardiovascular: Reports no additional cardiovascular complaints Respiratory: Respiratory: Reports no additional respiratory complaints Gastrointestinal: Gastrointestinal: Reports no additional gastrointestinal complaints Genitourinary: Genitourinary: Reports no additional male genitourinary complaints Exam Narrative: Exam Narrative: General: WD/WN male in NAD Heart: normal S1 and S2; no rub 3/6 systolic ejection murmur Lungs: Few crackles at the bases Abdomen: soft, nontender, nondistended, positive bowel sounds Extremities: no cyanosis or clubbing; trace edema Skin: No rash Objective Data Vital Signs Vital Signs: Vital Signs - 24 hr 02/21/20 14:00 02/21/20 20:00 02/21/20 20:10 Temperature 35.8 C L Pulse Rate 73 70 70 Respiratory Rate 20 20 Blood Pressure 137/60 Pulse Oximetry 94 91 02/21/20 22:00 02/22/20 06:00 02/22/20 07:50 Temperature 36.9 C 37.1 C Pulse Rate 70 77 Respiratory Rate 20 20 Blood Pressure 145/64 H 151/70 H Pulse Oximetry 91 97 9
[2020-02-22] MEDS: HEPARIN SODIUM 5,000 UNITS/ML VIAL 5000 UNITS SUB-Q ×2 (09:00→20:46)
[2020-02-22] MEDS: carvediloL 25 MG TABLET PO ×2 (09:08→20:41)
[2020-02-22] MEDS: ATORVASTATIN 10 MG TABLET PO (09:08)
[2020-02-22] MEDS: amLODIPine BESYLATE 5 MG TABLET PO (09:08)
[2020-02-22] MEDS: FINASTERIDE 5 MG TABLET PO (09:09)
[2020-02-22] MEDS: DOCUSATE SODIUM 100 MG CAPSULE PO ×2 (09:09→20:46)
[2020-02-22] MEDS: PANTOPRAZOLE 40 MG TABLET PO (09:10)
[2020-02-22] MEDS: THERAPEUTIC MULTIVITAMINS/MINERALS TAB (*BKC) 1 TABLET PO (09:10)
[2020-02-22] MEDS: LORATADINE 10 MG TABLET PO (09:10)
[2020-02-22] MEDS: hydrALAZINE HCL 25 MG TABLET PO ×3 (09:10→17:24)
--- NOTE | 2020-02-22 11:31 | PM.IMPN ---
Progress Note: A&P Assessment and Plan (1) Acute respiratory failure with hypoxia: Code(s): J96.01 - Acute respiratory failure with hypoxia Status: Acute Assessment and Plan: Secondary to congestive heart failure. COVID test negative. He does have evidence of aspiration with thin liquids. Hypoxia could be related to dysphagia/aspiration as well. Wean O2 as tolerated. Diuretics on hold due to elevated Cr. Consider abx if s/sx of PNA (cough, fever or elevated WBC). (2) Acute exacerbation of congestive heart failure: Code(s): I50.9 - Heart failure, unspecified Status: Acute Assessment and Plan: Echo here revealed EF of 55% with diastolic dysfunction Grade I and moderate to severe with moderate MR. BNP 32K. CXR showing pulmonary edema. Started on diuretics with IV Bumex and po Metolazone per nephrology. Cumulative output -5.9L. Lungs sound better but still on O2 and CXR 02/16 looks better. Continue Jamal hose. Off diuretics currently. (3) Chronic progressive renal failure, stage 4 (severe): Code(s): N18.4 - Chronic kidney disease, stage 4 (severe) Status: Chronic Assessment and Plan: Cr was in the mid-2 range in December. Creatinine 3.1 on admission and increased to 3.3 the next day. Cr running 3.3-3.6 range for many days but now 4.1-4.5 for the past 4 days and climbing despite being off his diuretics. Renal sonogram showed no hydro but distended bladder and over 600 ml residual so cath placed. No change in Cr since Geiger placed so less likely from obstructive uropathy. Nephrology following and appreciate their input. Renal biopsy on hold due to no significant elevation of autoimmune markers. Diuretic therapy held 02/15. Patient also mildly confused which could be related to the azotemia. . . He continues to have negative fluid balance despite being off diurectics. got 1L saline without change last 2 days with continued evidence of fluid overload and uremia will proceed with dialyiss, discussed with nephrology (4) Aortic stenosis: Onset Date: ~12/2019 Code(s): I35.0 - Nonrheumatic aortic (valve) stenosis Status: Acute Assessment and Plan: Echo showng moderate to severe with 1 cm2 valve area. Further recommendations per cardiology. (5) Chronic anemia: Code(s): D64.9 - Anemia, unspecified Status: Acute Assessment and Plan: Patient with chronic anemia mostly in the 10-11 prior to admission. Hgb has dropped into the 9 range and stable. [place] anemia of chronic disease with iron deficiency component as well. He completed IV iron x 5 days. Continue to follow. (6) Hypertension: Code(s): I10 - Essential (primary) hypertension Status: Acute Assessment and Plan: Patient's blood pressure was reviewed on 02/20 Blood pressure well controlled. Will continue current medications with Norvasc, Coreg and Hydralazine. (7) Type 2 diabetes mellitus with peripheral neuropathy: Code(s): E11.42 - Type 2 diabetes mellitus with diabetic polyneuropathy Status: Acute Assessment and Plan: Last A1c 5.6 in June. The patient's blood glucose was reviewed on 02/21 Glucose remains reasonably well controlled and mostly under 180. Continue to monitor with AccuCheks covering with sliding scale. Hypoglycemia protocol available as needed. Continue current treatment plan. (8) Benign prostatic hyperplasia: Code(s): N40.0 - Benign prostatic hyperplasia without lower urinary tract symptoms Status: Acute Assessment and Plan: BPH with urine retention. Continue finasteride and tamsulosin. Continue geiger for now but will need follow up with urologist for voiding trial. This was discussed with Dr Coelho and the patient will see him as outpt. Dr Coelho felt the patient could have Geiger trial here and will consider if he remains hospitalized. Keep Geiger in for now for strict I/Os giv
[2020-02-22 12:08] LABS: Glucose Point of Care 189 (65-105)
[2020-02-22 18:09] LABS: Glucose Point of Care 168 (65-105)
--- NOTE | 2020-02-22 19:37 | WPDURCON ---
Assessment and Plan Assessment and plan (1) Genital edema, male: Code(s): N50.89 - Other specified disorders of the male genital organs Status: Acute (2) Balanitis: Code(s): N48.1 - Balanitis Status: Acute (3) Urinary retention due to benign prostatic hyperplasia: Code(s): N40.1 - Benign prostatic hyperplasia with lower urinary tract symptoms; R33.8 - Other retention of urine Status: Acute Assessment and Plan: Genital edema indicative generalized fluid status and presents no significant problem Mild balanitis can be treated with an antifungal cream Urinary tension on combination therapy for BPH. I would recommend leaving his indwelling catheter with follow-up subsequent to discharge. He should remain on both tamsulosin and finasteride. Urology Consult Note HPI Date Seen: 02/22/20 Requesting Physician: Jorge Villar MD Primary Care Provider: Emelina Anguiano MD Consult Narrative Narrative: Dell Leon Sr. 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 He has been on tamsulosin for a long period of time with the addition of finasteride in June 2019. During the course of this protracted admission he has been in urinary retention and had an indwelling catheter much of the time. He is not able to supply reliable history at this time that. We are asked to see him both for this urinary retention and mild balanitis. Review of Systems Review of Systems: ROS unobtainable: Yes unobtainable due to mental status PMFSH Past Medical History Medical History (Updated 02/22/20 @ 19:40 by Nik Coelho MD) Abdominal aortic aneurysm Infrarenal abdominal aortic aneurysm measuring 3.4 cm on imaging in June 2019. Aortic stenosis (~12/2019) Severe aortic valve sclerosis with moderate to severe aortic valve stenosis with a peak velocity of 309 cm/s, mean gradient of 18 mmHg, and aortic valve area of 1.0 cm2. Arthritis Benign prostatic hyperplasia Bilateral inguinal hernia Bilateral fat containing inguinal hernias noted on CT in 02/2019. Chronic anemia Chronic progressive renal failure, stage 4 (severe) Creatinine varies, ranging between 1.9 and 2.50. Cognitive impairment Combined systolic and diastolic congestive heart failure (~12/2019) Mildly reduced LV systolic function, estimated at 45-50% with grade 3 diastolic dysfunction. Depression Gastritis Noted on EGD June 2019. Gastroesophageal reflux Hyperlipidemia Hypertension Psoriasis Previously on methotrexate, which was recently stopped due to oral ulcers. Type 2 diabetes mellitus with peripheral neuropathy Hemoglobin A1c was 5.6% on 06/23/2019. Vitamin D deficiency Surgical History Surgical History History of cataract extraction History of colon resection For benign tumor. History of tonsillectomy Family History Family History Sibling Patient's sister is in good health Family history unknown Father Family history unknown Mother Family history unknown Other Unknown family medical history Social History Social History Social History: The patient is and lives in [place] with his daughter. He is originally from [place], [place]. He was in the [employer] as a young man. 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 He smoked for about 45 years, and quit 20 years ago. He has not had alcohol in about 20 years. No illicit substance use. He designates his daughter, Tarah, as his surrogate decision maker and he wishes to be a full code. Smoking status: Former smoker Alcohol intake: never Substance use: never Gender identity (if verbalized by the patient): Male Spiritual care concerns: No Agree to blood product
--- NOTE | 2020-02-22 19:41 | PM.CNGS ---
Assessment and Plan Assessment and plan (1) End stage renal disease: Code(s): N18.6 - End stage renal disease Status: Acute Assessment and Plan: will setup for TDC placement in am (2) Acute exacerbation of congestive heart failure: Code(s): I50.9 - Heart failure, unspecified Status: Acute Assessment and Plan: stable, mgmt per medicine (3) Type 2 diabetes mellitus with peripheral neuropathy: Code(s): E11.42 - Type 2 diabetes mellitus with diabetic polyneuropathy Status: Acute Assessment and Plan: stable (4) Hypertension: Code(s): I10 - Essential (primary) hypertension Status: Acute Assessment and Plan: stable (5) Aortic stenosis: Onset Date: ~12/2019 Code(s): I35.0 - Nonrheumatic aortic (valve) stenosis Status: Acute Assessment and Plan: stable History of Present Illness Consult details Consult date: 02/22/20 Reason for consult: other (ESRD) Requesting physician: Chris Yarbrough MD Narrative: Pt is a 84 y/o M c multiple med issues presenting c progressively worsening SOB, weakness. Pt found to have acute on chronic kidney failure. Pt has had long d/w Dr. Yarbrough and family and decision to proceed c HD. Pt denies any previous h/o central vein catheterization. Review of Systems Constitutional: Constitutional: Reports body ache(s), Denies chills, Reports fatigue, Denies fever(s), Denies headache(s), Reports lethargy, Reports malaise, Denies night sweats, Reports poor appetite, Reports weakness, Denies weight gain and Denies weight loss Eyes: Eyes: Reports no additional eye complaints ENT: Reports system reviewed and no additional complaints, except as documented Cardiovascular: Cardiovascular: Reports chest pain, Reports chest pain with activity and Reports dyspnea on exertion Respiratory: Respiratory: Reports dyspnea and Reports dyspnea on exertion Gastrointestinal: Gastrointestinal: Reports no additional gastrointestinal complaints, Denies abdominal pain, Reports nausea and Denies vomiting Genitourinary: Comments: oliguric Musculoskeletal: Musculoskeletal: Reports myalgias Integumentary/Breasts: Skin/Breast: Reports system reviewed and no additional complaints, except as docu Neurologic: Reports system reviewed and no additional complaints, except as documented Psychiatric: Psychiatric: Reports no additional psychiatric complaints Endocrine: Endocrine: Reports no additional endocrine complaints Hematologic/Lymphatic: Hematologic/Lymphatic: Reports no additional hematologic/lymphatic complaints Allergic/Immunologic: Allergic/Immunologic: Reports no additional allergic/immunologic complaints [facility] Past Medical History Medical History Abdominal aortic aneurysm Infrarenal abdominal aortic aneurysm measuring 3.4 cm on imaging in June 2019. Aortic stenosis (~12/2019) Severe aortic valve sclerosis with moderate to severe aortic valve stenosis with a peak velocity of 309 cm/s, mean gradient of 18 mmHg, and aortic valve area of 1.0 cm2. Arthritis Benign prostatic hyperplasia Bilateral inguinal hernia Bilateral fat containing inguinal hernias noted on CT in 02/2019. Chronic anemia Chronic progressive renal failure, stage 4 (severe) Creatinine varies, ranging between 1.9 and 2.50. Cognitive impairment Combined systolic and diastolic congestive heart failure (~12/2019) Mildly reduced LV systolic function, estimated at 45-50% with grade 3 diastolic dysfunction. Depression Gastritis Noted on EGD June 2019. Gastroesophageal reflux Hyperlipidemia Hypertension Psoriasis Previously on methotrexate, which was recently stopped due to oral ulcers. Type 2 diabetes mellitus with peripheral neuropathy Hemoglobin A1c was 5.6% on 06/23/2019. Vitamin D deficiency Surgical History Surgical History History of
[2020-02-22] MEDS: ACETAMINOPHEN 325 MG TABLET 650 MG PO (20:39)
[2020-02-22] MEDS: VITAMIN B COMPLEX CAPSULE 1 CAP PO (20:41)
[2020-02-22] MEDS: TAMSULOSIN HCL 0.4 MG CAPSULE PO (20:42)
[2020-02-22 22:00] LABS: Glucose Point of Care 185 (65-105)
[2020-02-22] MEDS: BETAMETHASONE/CLOTRIMAZOLE CR 15 GM TUBE 1 APPLIC TOPICAL (22:15)
[2020-02-23] VITALS (25 sets, daily range): BP systolic 130–164; BP diastolic 53–86; PULSE 60–78; RESP 14–20; TEMP 36–37; O2SAT 92–100
--- NOTE | 2020-02-23 06:31 | WPDANESEPPF ---
Anes - Initial Pre Proc Eval Procedure: Operation Date: 02/23/20 07:30 Proposed Procedures p Insertion Tunneled Dialysis Catheter - Maya Gutierrez MD Date/Time: 02/23/20 06:31 Surgeon: Jorge Villar MD Pre Op Diagnosis: Shortness of breath. Patient Data Age: 84 Gender: M Height: 1.88 m Weight: 102.5 kg Last Vital Signs Temp 37.2 C 02/22/20 22:00 Pulse 66 02/22/20 22:00 Resp 20 02/22/20 22:00 BP 144/62 H 02/22/20 22:00 Pulse Ox 91 02/22/20 22:00 Allergies Allergy/AdvReac Type Severity Reaction Status Date / Time Sulfa (Sulfonamide Allergy Severe Hives Verified 02/18/20 15:44 Antibiotics) Home Medications Medication Instructions Recorded Confirmed Type aspirin [Aspir-81] 81 mg PO DAILY 02/04/19 02/06/20 History loratadine 10 mg PO DAILY 02/04/19 02/06/20 History Ca-D3-mag ve-cyab-ndw-lucrecia-bor 1 tablet PO DAILY 06/10/19 02/06/20 History [Calcium 600-D3 Plus (mag-zinc)] Men's 50 Plus Multivitamin 1 tablet PO DAILY 06/10/19 02/06/20 History acetaminophen [Tylenol 8 Hour] 650 mg PO Q12H PRN 06/10/19 02/06/20 History docusate sodium 100 mg PO BID 06/10/19 02/06/20 History finasteride 5 mg PO DAILY 06/10/19 02/06/20 History tamsulosin 0.4 mg PO HS 06/10/19 02/06/20 History vitamin B complex [Super B-50 1 cap PO HS 06/10/19 02/06/20 History Complex] carvedilol 25 mg tablet 25 mg PO BID #60 tablet 01/17/20 02/06/20 Rx hydralazine 50 mg tablet 50 mg PO TID #90 tablet 01/17/20 02/06/20 Rx atorvastatin 10 mg tablet 10 mg PO DAILY #30 tablet 01/22/20 02/06/20 Rx guaifenesin 600 mg tablet, 600 mg PO BID 01/22/20 02/06/20 History extended release 12 hr linagliptin 5 mg tablet 5 mg PO QAM 01/22/20 02/06/20 History amlodipine 5 mg tablet 5 mg PO DAILY tablet 01/23/20 02/06/20 History duloxetine 30 mg capsule,delayed See Rx Instructions .ROUTE 01/23/20 02/06/20 History release .COMPLEX cap gabapentin 300 mg capsule 600 mg PO Q8H #540 cap 01/23/20 02/06/20 Rx pantoprazole 40 mg tablet,delayed 40 mg PO QAM 01/23/20 02/06/20 History release furosemide [Lasix] 40 mg PO BID 02/06/20 02/06/20 History Laboratory Tests 02/22/20 02/22/20 02/22/20 05:50 05:50 06:30 WBC 11.8 K/mm3 H K/mm3 (4.5-10.0) RBC 3.03 M/mm3 L M/mm3 (4.6-6.20) Hgb 9.8 g/dL L g/dL (14.0-18.0) Hct 30.0 % L % (42.0-52.0) MCV 99.0 fl fl (80-100) MCH 32.3 pg pg (26-34) MCHC 32.7 g/dl g/dl (32-36) RDW 14.9 % H % (11.5-14.5) Plt Count 155 k/mm3 k/mm3 (150-375) MPV 11.0 fl H fl (7.4-10.4) Sodium 141 mmol/L mmol/L (137-145) Potassium 4.0 mmol/L mmol/L (3.4-5.0) Chloride 102 mmol/L mmol/L (98-107) Carbon Dioxide 31 mmol/L H mmol/L (22-30) Anion Gap 8 mmol/L mmol/L (8-16) BUN 103 mg/dL H mg/dL (9-20) Creatinine 4.20 mg/dL H mg/dL (0.7-1.3) Estim Creat Clear Calc 15 ml/min ml/min Estimated GFR 14 L (59 - ) Glucose 172 mg/dL H mg/dL (75-110) POC Capillary Glucose 184 mg/dl H mg/dl (65-105) Calcium 8.5 mg/dL mg/dL (8.4-10.2) Phosphorus 4.0 mg/dL mg/dL (2.5-4.5) Albumin 3.4 g/dL L g/dL (3.5-5.1) 02/22/20 02/22/20 02/22/20 08:24 11:56 17:12 WBC RBC Hgb Hct MCV MCH MCHC RDW Plt Count MPV Sodium Potassium Chloride Carbon Dioxide Anion Gap BUN Creatinine Estim Creat Clear Calc Estimated GFR Glucose POC Capillary Glucose 171 mg/dl H mg/dl 189 mg/dl H mg/dl 168 mg/dl H mg/dl (65-105) (65-105) (65-105) Calcium Phosphorus Albumin 02/22/20
[2020-02-23] MEDS: SODIUM CHLORIDE 0.9% IV 500 ML 30 ML IV CONT (06:45)
[2020-02-23 06:54] LABS: Glucose Point of Care 138 (65-105)
--- NOTE | 2020-02-23 07:11 | WPDHPUPDATE1 ---
History and Physical Update Update Date/Time: 02/23/20 07:11 History and Physical has been reviewed, including an updated exam of the patient. There are NO changes in the patient's condition. Risks, benefits, and alternatives have been discussed and questions answered. Patient agrees to proceed with procedure.
[2020-02-23] MEDS: LIDO 1%/EPINEPHRINE 1:100,000 20 ML VIAL INFILTRATE (08:06)
[2020-02-23] MEDS: HEPARIN SODIUM, PORCINE 10,000 UNITS/10 ML VIAL 10000 UNITS IRRIGATION (08:18)
--- NOTE | 2020-02-23 08:19 | PCPTNOTE ---
The patient treatment was not able to be completed this A.M. due to patient out of room for procedure[]. Will plan to continue treatment per plan of care.
--- NOTE | 2020-02-23 08:21 | PM.PROC ---
Procedure Note - Detailed Date of procedure: 02/23/20 Pre-op diagnosis: Shortness of breath. renal failure Post-op diagnosis: same Procedure performed: placement of RIJ tunneled HD catheter 28 cm under both U/S and fluroscopic guidance Description of procedure: Patient was taken to the operating room and placed in the supine position. After adequate induction of MAC anesthesia, the patient was prepped and draped in normal sterile fashion. A time-out was then done to verify the patient's identity as well as the procedure being performed. I began by using the SonoSite and locating the right internal jugular vein. Once this was done, I localized the overlying skin. I then made a small incision in the skin. I then gained access into the right internal jugular vein with an 18 gauge needle. At this point, I threaded the guidewire into the right internal jugular vein. Placement of the guidewire was confirmed by both ultrasound and fluoroscopic guidance. I then went ahead and measured the 28 cm tunneled dialysis catheter to our stick site in the right neck. I then localized the tract going from the right chest to the right neck. I then made a small incision in the right chest and tunneled the catheter to the right neck. I then serially dilated the right internal jugular vein under fluoroscopic guidance. Once adequately dilated, I placed dilating sheath over the guidewire into the right internal jugular vein under fluoroscopic visualization. Once this was noted to be in good position, I removed both the guidewire and dilator, now just leaving the sheath in the vein. I then went ahead and fed the previously tunneled catheter into the sheath. Once the catheter was fed and positioned correctly, I went ahead and peeled the sheath away. Final fluoroscopic view showed the catheter in good position from its insertion point in the right chest to its termination in the right atrial caval junction. It was noted there was no kinking of the catheter. I was able to easily draw and flush from both ports of the catheter. I placed 2.2 and 2.3 cc of final heparin flush into each port as marked. The catheter was then sutured into place and the incision in the neck was closed with 4 O Monocryl subcuticular suture. The patient tolerated the procedure well and will be transferred to the recovery room in stable condition. Sterile dressing was placed on the catheter. Portable chest x-ray will be done in the recovery. Implants: 28 cm duraflow tunneled HD cath Anesthesia: MAC and local Surgeon: Maya Gutierrez MD Estimated blood loss (mL): 5 Drains: No Packing: No Pathology: none sent Complications: No immediate complications Condition: stable Disposition: PACU Findings: first stick access in [facility] under U/S guidance
--- NOTE | 2020-02-23 08:22 | SUR.PHASEI ---
0822 PORTABLE CHEST XRAY TAKEN.
[2020-02-23 08:32] LABS: Glucose Point of Care 144 (65-105)
[2020-02-23 09:58] LABS: Anion Gap 5 mmol/L (8-16); Blood Urea Nitrogen 100 mg/dL (9-20); Calcium 8.7 mg/dL (8.4-10.2); Carbon Dioxide 33 mmol/L (22-30); Chloride 104 mmol/L (98-107); Estimated CRCL calculation 15 ml/min; Estimated Glomerular Filt Rate 14; Glucose 157 mg/dL (75-110); Potassium 4.1 mmol/L (3.4-5.0); Sodium 142 mmol/L (137-145)
--- NOTE | 2020-02-23 10:38 | PC.NURSE ---
returned to floor from surgery approx 0930. Dressing to new right upper chest dialysis cath is clean and dry. no c/o pain or discomfort, Ahuja cath intact.
[2020-02-23 11:17] LABS: Glucose Point of Care 159 (65-105)
[2020-02-23] MEDS: THERAPEUTIC MULTIVITAMINS/MINERALS TAB (*BKC) 1 TABLET PO (12:18)
[2020-02-23] MEDS: carvediloL 25 MG TABLET PO ×2 (12:19→21:13)
[2020-02-23] MEDS: FINASTERIDE 5 MG TABLET PO (12:19)
[2020-02-23] MEDS: LORATADINE 10 MG TABLET PO (12:20)
[2020-02-23] MEDS: BETAMETHASONE/CLOTRIMAZOLE CR 15 GM TUBE 1 APPLIC TOPICAL ×2 (12:20→21:14)
[2020-02-23] MEDS: amLODIPine BESYLATE 5 MG TABLET PO (12:20)
[2020-02-23] MEDS: ATORVASTATIN 10 MG TABLET PO (12:20)
[2020-02-23] MEDS: DOCUSATE SODIUM 100 MG CAPSULE PO ×2 (12:21→21:13)
[2020-02-23] MEDS: PANTOPRAZOLE 40 MG TABLET PO (12:21)
--- NOTE | 2020-02-23 13:14 | PCOTNOTE ---
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 Will continue plan of care tomorrow, 02/24/2020.
--- NOTE | 2020-02-23 13:14 | PCPTNOTE ---
Patient refused treatment this session. Patient states he just returned from procedure and does not feel up to doing therapy today. PT will continue to follow per plan of care.
[2020-02-23] MEDS: GABAPENTIN 300 MG CAPSULE 600 MG PO ×2 (14:01→21:13)
[2020-02-23] MEDS: hydrALAZINE HCL 25 MG TABLET PO ×2 (14:02→16:48)
--- NOTE | 2020-02-23 15:23 | PM.IMPN ---
Progress Note: A&P Assessment and Plan (1) Acute respiratory failure with hypoxia: Code(s): J96.01 - Acute respiratory failure with hypoxia Status: Acute Assessment and Plan: Secondary to congestive heart failure. COVID test negative. He does have evidence of aspiration with thin liquids. Hypoxia could be related to dysphagia/aspiration as well. Wean O2 as tolerated. Tunnel cath placed today and hemodialysis to start (2) Acute exacerbation of congestive heart failure: Code(s): I50.9 - Heart failure, unspecified Status: Acute Assessment and Plan: Echo here revealed EF of 55% with diastolic dysfunction Grade I and moderate to severe with moderate MR. BNP 32K. CXR showing pulmonary edema. Started on diuretics with IV Bumex and po Metolazone per nephrology. Cumulative output -5.9L. Lungs sound better but still on O2 and CXR 02/16 looks better. Continue Jamal hose. Off diuretics currently and to start hemodialysis today or tomorrow (3) Chronic progressive renal failure, stage 4 (severe): Code(s): N18.4 - Chronic kidney disease, stage 4 (severe) Status: Chronic Assessment and Plan: Cr was in the mid-2 range in December. Creatinine 3.1 on admission and increased to 3.3 the next day. Cr running 3.3-3.6 range for many days but now 4.1-4.5 for the past few days and climbing despite being off his diuretics. Renal sonogram showed no hydro but distended bladder and over 600 ml residual so cath placed. No change in Cr since Geiger placed so less likely from obstructive uropathy. Renal biopsy on hold due to no significant elevation of autoimmune markers. Diuretic therapy held 02/15. Patient also mildly confused which could be related to the azotemia. . . He continues to have negative fluid balance despite being off diurectics. with continued evidence of fluid overload and uremia will proceed with dialysis today or tomorrow, tunnel cath placed today (4) Aortic stenosis: Onset Date: ~12/2019 Code(s): I35.0 - Nonrheumatic aortic (valve) stenosis Status: Acute Assessment and Plan: Echo showng moderate to severe with 1 cm2 valve area. Further recommendations per cardiology. (5) Chronic anemia: Code(s): D64.9 - Anemia, unspecified Status: Acute Assessment and Plan: Patient with chronic anemia mostly in the 10-11 prior to admission. Hgb has dropped into the 9 range and stable. [place] anemia of chronic disease with iron deficiency component as well. He completed IV iron x 5 days. Continue to follow. (6) Hypertension: Code(s): I10 - Essential (primary) hypertension Status: Acute Assessment and Plan: Patient's blood pressure was reviewed on 02/22 Blood pressure well controlled. Will continue current medications with Norvasc, Coreg and Hydralazine. May be able to decelerate bp meds after starting dialysis (7) Type 2 diabetes mellitus with peripheral neuropathy: Code(s): E11.42 - Type 2 diabetes mellitus with diabetic polyneuropathy Status: Acute Assessment and Plan: Last A1c 5.6 in June. The patient's blood glucose was reviewed on 02/22 Glucose remains reasonably well controlled and mostly under 180. Continue to monitor with AccuCheks covering with sliding scale. Hypoglycemia protocol available as needed. Continue current treatment plan. (8) Benign prostatic hyperplasia: Code(s): N40.0 - Benign prostatic hyperplasia without lower urinary tract symptoms Status: Acute Assessment and Plan: BPH with urine retention. Continue finasteride and tamsulosin. Continue geiger for now but will need follow up with urologist for voiding trial. This was discussed with Dr Coelho and the patient will see him as outpt. Dr Coelho felt the patient could have Geiger trial here and will consider over weekend since started dialysis. Keep Geiger in for now for strict I/Os g (9) DVT
--- NOTE | 2020-02-23 15:25 | P.PNNP_ITS ---
Progress Note: A&P Assessment and Plan (1) KENNY (acute kidney injury): Code(s): N17.9 - Acute kidney failure, unspecified Status: Acute Assessment and Plan: * is this really KENNY or is this just progression of his known CKD?? * creatinine is gradually worsening over the last couple of weeks. * however, elevated ESR in association with nephrotic proteinuria is concerning * all serologies to date negative (SPE/UPE/REX/dsDNA-ab/hepatitis/ANCA) although C3 was slightly low - renal biopsy still a consideration but not urgent * He will begin dialysis today. * Will do a short treatment and also take a little bit of fluid off starting 1/2hour after he gets on. * We will get another treatment tomorrow. If he does okay with these and if he is scheduled for dialysis as an outpatient at [place] then okay for discharge. (2) Chronic progressive renal failure, stage 4 (severe): Code(s): N18.4 - Chronic kidney disease, stage 4 (severe) Status: Chronic Assessment and Plan: * baseline creatinine runs around 2.5 - 2.8mg/dl * due to diabetes, hypertension, cardiac + vavlular heart disease (systolic + diastolic heart failure along with aortic stenosis) (3) Acute exacerbation of congestive heart failure: Code(s): I50.9 - Heart failure, unspecified Status: Acute Assessment and Plan: * diuresis on hold * Now that he is getting dialysis we can resume diuretics to help with fluid removal. * Cardiology following * (4) Hypertension: Code(s): I10 - Essential (primary) hypertension Status: Acute Assessment and Plan: * BP seems to be doing better * follow trend for now (5) Anemia: Code(s): D64.9 - Anemia, unspecified Status: Acute Assessment and Plan: * due to iron deficiency and underlying CKD * Hemoglobin is 9.8. * will be getting Epogen with hd. (6) Diabetes: Code(s): E11.9 - Type 2 diabetes mellitus without complications Status: Chronic Assessment and Plan: * on acchecks * on SSI Subjective Date/time seen: 02/23/20 15:25 Interval history: Patient Feels about the same today. Ate a good lunch. He had his PermCath in earlier today. Review of Systems Cardiovascular: Cardiovascular: Reports no additional cardiovascular complaints Respiratory: Respiratory: Reports no additional respiratory complaints Gastrointestinal: Gastrointestinal: Reports no additional gastrointestinal complaints Genitourinary: Genitourinary: Reports no additional male genitourinary complaints Exam Narrative: Exam Narrative: General: WD/WN male in NAD Heart: normal S1 and S2; no rub 3/6 systolic ejection murmur Lungs: Few crackles at the bases Abdomen: soft, nontender, nondistended, positive bowel sounds Extremities: no cyanosis or clubbing; trace edema Skin: No rash Objective Data Vital Signs Vital Signs: Vital Signs - 24 hr 02/22/20 20:00 02/22/20 20:25 02/22/20 20:41 Temperature 37.2 C Pulse Rate 66 66 66 Respiratory Rate 20 20 Blood Pressure 144/67 H Pulse Oximetry 91 91 02/22/20 22:00 02/23/20 06:30 02/23/20 06:42 Temperature 37.2 C 36.3 C L 36.9 C Pulse Rate 66 61 61 Respiratory Rate 20 18 20 Blood Pressure 144/62 H 130/71 148/62 H Pulse Ox
--- NOTE | 2020-02-23 15:25 | PM.PNNEP ---
Progress Note: A&P Assessment and Plan (1) KENNY (acute kidney injury): Code(s): N17.9 - Acute kidney failure, unspecified Status: Acute Assessment and Plan: is this really KENNY or is this just progression of his known CKD?? creatinine is gradually worsening over the last couple of weeks. however, elevated ESR in association with nephrotic proteinuria is concerning all serologies to date negative (SPE/UPE/REX/dsDNA-ab/hepatitis/ANCA) although C3 was slightly low - renal biopsy still a consideration but not urgent He will begin dialysis today. Will do a short treatment and also take a little bit of fluid off starting 1/2hour after he gets on. We will get another treatment tomorrow. If he does okay with these and if he is scheduled for dialysis as an outpatient at [facility] then okay for discharge. (2) Chronic progressive renal failure, stage 4 (severe): Code(s): N18.4 - Chronic kidney disease, stage 4 (severe) Status: Chronic Assessment and Plan: baseline creatinine runs around 2.5 - 2.8mg/dl due to diabetes, hypertension, cardiac + vavlular heart disease (systolic + diastolic heart failure along with aortic stenosis) (3) Acute exacerbation of congestive heart failure: Code(s): I50.9 - Heart failure, unspecified Status: Acute Assessment and Plan: diuresis on hold Now that he is getting dialysis we can resume diuretics to help with fluid removal. Cardiology following (4) Hypertension: Code(s): I10 - Essential (primary) hypertension Status: Acute Assessment and Plan: BP seems to be doing better follow trend for now (5) Anemia: Code(s): D64.9 - Anemia, unspecified Status: Acute Assessment and Plan: due to iron deficiency and underlying CKD Hemoglobin is 9.8. will be getting Epogen with hd. (6) Diabetes: Code(s): E11.9 - Type 2 diabetes mellitus without complications Status: Chronic Assessment and Plan: on acchecks on SSI Subjective Date/time seen: 02/23/20 15:25 Interval history: Patient Feels about the same today. Ate a good lunch. He had his PermCath in earlier today. Review of Systems Cardiovascular: Cardiovascular: Reports no additional cardiovascular complaints Respiratory: Respiratory: Reports no additional respiratory complaints Gastrointestinal: Gastrointestinal: Reports no additional gastrointestinal complaints Genitourinary: Genitourinary: Reports no additional male genitourinary complaints Exam Narrative: Exam Narrative: General: WD/WN male in NAD Heart: normal S1 and S2; no rub 3/6 systolic ejection murmur Lungs: Few crackles at the bases Abdomen: soft, nontender, nondistended, positive bowel sounds Extremities: no cyanosis or clubbing; trace edema Skin: No rash Objective Data Vital Signs Vital Signs: Vital Signs - 24 hr 02/22/20 20:00 02/22/20 20:25 02/22/20 20:41 Temperature 37.2 C Pulse Rate 66 66 66 Respiratory Rate 20 20 Blood Pressure 144/67 H Pulse Oximetry 91 91 02/22/20 22:00 02/23/20 06:30 02/23/20 06:42 Temperature 37.2 C 36.3 C L 36.9 C Pulse Rate 66 61 61 Respiratory Rate 20 18 20 Blood Pressure 144/62 H 130/71 148/62 H Pulse Oximetry 91 96 97 02/23/20 08:13 02/23/20 08:25 02/23/20 08:40 Temperature 36.1 C L Pulse Rate 62 61 64 Respiratory Rate 16 14 16 Blood Pressure 164/62 H 163/77 H 163/63 H Pulse Oximetry 100 98 94 02/23/20 08:55 02/23/20 09:15 02/23/20 12:19 Temperature 36.7 C Pulse Rate 63 63 78 Respiratory Rate 16 18 Blood Pressure 152/65 H 164/86 H Pulse Oximetry 92 96 02/23/20 14:00 Temperature 36.6 C Pulse Rate 65 Respiratory Rate 20 Blood Pressure 136/53 L Pulse Oximetry 95 Intake/Output Intake/Output: Intake & Output 02/20/20 02/21/20 02/22/20 02/23/20 23:59 23:59 23:59 23:59 Intake Total 1000 2000 765 0 Output Total 900 1350
[2020-02-23 16:47] LABS: Glucose Point of Care 252 (65-105)
[2020-02-23] MEDS: INSULIN ASPART (*BKC) 100 UNITS/ML SUB-Q (16:48)
[2020-02-23] MEDS: FUROSEMIDE 80 MG TABLET PO (16:48)
[2020-02-23] MEDS: SODIUM CHLORIDE 0.9% IV 1,000 ML 100 ML IV CONT (17:15)
[2020-02-23 17:36] LABS: Hepatitis B Surface Antigen Negative (Negative)
[2020-02-23 19:17] LABS: Hepatitis B Surface Anti Res Negative; Hepatitis C Virus Antibody Negative (Negative)
[2020-02-23] MEDS: EPOETIN ALFA-EPBX 10,000 UNITS/ML VIAL 10000 UNITS IV PUSH (20:20)
[2020-02-23] MEDS: VITAMIN B COMPLEX CAPSULE 1 CAP PO (21:13)
[2020-02-23] MEDS: TAMSULOSIN HCL 0.4 MG CAPSULE PO (21:13)
[2020-02-23] MEDS: HEPARIN SODIUM 5,000 UNITS/ML VIAL 5000 UNITS SUB-Q (21:14)
[2020-02-23 23:09] LABS: Glucose Point of Care 112 (65-105)
[2020-02-24] VITALS (23 sets, daily range): BP systolic 122–161; BP diastolic 45–76; PULSE 56–74; RESP 16–22; TEMP 36.2–37.1; O2SAT 91–95
--- NOTE | 2020-02-24 00:29 | PC.NURSE ---
patient received from dialysis at 2050 to room 303. Report received from dialysis nurse.
[2020-02-24] MEDS: ACETAMINOPHEN 325 MG TABLET 650 MG PO (04:07)
[2020-02-24] MEDS: GABAPENTIN 300 MG CAPSULE 600 MG PO ×3 (06:16→20:52)
[2020-02-24 07:15] LABS: Albumin Level 2.9 g/dL (3.5-5.1); Anion Gap 5 mmol/L (8-16); Blood Urea Nitrogen 66 mg/dL (9-20); Calcium 8.2 mg/dL (8.4-10.2); Carbon Dioxide 35 mmol/L (22-30); Chloride 100 mmol/L (98-107); Estimated CRCL calculation 20 ml/min; Estimated Glomerular Filt Rate 19; Glucose 115 mg/dL (75-110); Phosphorus 3.4 mg/dL (2.5-4.5); Potassium 3.6 mmol/L (3.4-5.0); Sodium 140 mmol/L (137-145)
--- NOTE | 2020-02-24 08:28 | PC.NURSE ---
Patient refused dialysis this morning. The risks of refusing treatment were explained to the patient by this RN. Patient still refuses treatment after education. This RN alerted the dialysis nurse on site and the dialysis nurse stated that they would contact Dr. Yarbrough that the patient is refusing treatment.
[2020-02-24] MEDS: HEPARIN SODIUM 1,000 UNITS/ML VIAL 1000 UNITS IV PUSH ×2 (10:15→13:16)
[2020-02-24] MEDS: HEPARIN SODIUM 1,000 UNITS/ML VIAL 500 UNITS IV PUSH ×3 (10:18→12:18)
[2020-02-24 10:20] LABS: Glucose Point of Care 129 (65-105)
--- NOTE | 2020-02-24 10:26 | PM.PNNEP ---
Progress Note: A&P Assessment and Plan (1) KENNY (acute kidney injury): Code(s): N17.9 - Acute kidney failure, unspecified Status: Acute Assessment and Plan: is this really KENNY or is this just progression of his known CKD?? creatinine is gradually worsening over the last couple of weeks. however, elevated ESR in association with nephrotic proteinuria is concerning all serologies to date negative (SPE/UPE/REX/dsDNA-ab/hepatitis/ANCA) although C3 was slightly low - renal biopsy still a consideration but not urgent Getting dialysis now. Will do next treatment on Wednesday as an outpatient. He can be discharged at any time. (2) Chronic progressive renal failure, stage 4 (severe): Code(s): N18.4 - Chronic kidney disease, stage 4 (severe) Status: Chronic Assessment and Plan: baseline creatinine runs around 2.5 - 2.8mg/dl due to diabetes, hypertension, cardiac + vavlular heart disease (systolic + diastolic heart failure along with aortic stenosis) (3) Acute exacerbation of congestive heart failure: Code(s): I50.9 - Heart failure, unspecified Status: Acute Assessment and Plan: diuresis on hold Now that he is getting dialysis we can resume diuretics to help with fluid removal. 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 He will get planning for definitive treatment of his aortic valve as an outpatient. (4) Hypertension: Code(s): I10 - Essential (primary) hypertension Status: Acute Assessment and Plan: BP seems to be doing better follow trend for now (5) Anemia: Code(s): D64.9 - Anemia, unspecified Status: Acute Assessment and Plan: due to iron deficiency and underlying CKD On Epogen with hd. (6) Diabetes: Code(s): E11.9 - Type 2 diabetes mellitus without complications Status: Chronic Assessment and Plan: on acchecks on [facility] Subjective Date/time seen: 02/24/20 10:26 Interval history: Patient Feels about the same today. ?Dialysis was a waste of time? He actually looks less short of breath and is more together mentally. I encouraged him and let him know that he looks so much better after only 1 treatment. He is on dialysis now and tolerating well. He was seen at 10:30 a.m. Review of Systems Cardiovascular: Cardiovascular: Reports no additional cardiovascular complaints Respiratory: Respiratory: Reports no additional respiratory complaints Gastrointestinal: Gastrointestinal: Reports no additional gastrointestinal complaints Genitourinary: Genitourinary: Reports no additional male genitourinary complaints Exam Narrative: Exam Narrative: General: WD/WN male in NAD Heart: normal S1 and S2; no rub 3/6 systolic ejection murmur Lungs: Rare crackles at the bases Abdomen: soft, nontender, nondistended, positive bowel sounds Extremities: no cyanosis or clubbing; trace edema Skin: No rash or subcu nodules Objective Data Vital Signs Vital Signs: Vital Signs - 24 hr 02/23/20 12:19 02/23/20 14:00 02/23/20 17:51 Temperature 36.6 C 36.6 C Pulse Rate 78 65 61 Respiratory Rate 20 18 Blood Pressure 136/53 L 138/65 Pulse Oximetry 95 02/23/20 18:02 02/23/20 18:15 02/23/20 18:30 Temperature Pulse Rate 61 61 61 Respiratory Rate Blood Pressure 143/74 H 135/68 134/71 Pulse Oximetry 02/23/20 18:45 02/23/20 19:00 02/23/20 19:15 Temperature Pulse Rate 61 63 63 Respiratory Rate Blood Pressure 144/66 H 154/73 H 146/65 H Pulse Oximetry 02/23/20 19:30 02/23/20 19:45 02/23/20 20:00 Temperature Pulse Rate 60 62 60 Respiratory Rate Blood Pressure 145/67 H 162/76 H 151/75 H Pulse Oximetry 02/23/20 20:15 02/23/20 20:31 02/23/20 20:44 Temperature 36.6 C Pulse Rate 60 60 60 Respiratory Rate 16 Blood Pressure 147/77 H 150/77 H 157/78 H Pulse Oximetry 02/23/20 21:00 02/23/20 21:13 11
--- NOTE | 2020-02-24 11:12 | PC.NURSE ---
Patient to dialysis treatment at 0920.
[2020-02-24 12:35] LABS: Glucose Point of Care 137 (65-105)
--- NOTE | 2020-02-24 14:03 | PC.NURSE ---
Patient returned to room 303 from dialysis at 1330.
--- NOTE | 2020-02-24 14:53 | PM.IMPN ---
Progress Note: A&P Assessment and Plan (1) Acute respiratory failure with hypoxia: Code(s): J96.01 - Acute respiratory failure with hypoxia Status: Acute Assessment and Plan: Secondary to congestive heart failure. COVID test negative. He does have evidence of aspiration with thin liquids. Hypoxia could be related to dysphagia/aspiration as well. Wean O2 as tolerated. Tunnel cath placed 02/22 and hemodialysis day 2 today (2) Acute exacerbation of congestive heart failure: Code(s): I50.9 - Heart failure, unspecified Status: Acute Assessment and Plan: Echo here revealed EF of 55% with diastolic dysfunction Grade I and moderate to severe with moderate MR. BNP 32K. CXR showing pulmonary edema. Started on diuretics with IV Bumex and po Metolazone per nephrology. Cumulative output -5.9L. Lungs sound better but still on O2 and CXR 02/16 looks better. Continue Jamal hose. Off diuretics currently and started hemodialysis 02/22 (3) Chronic progressive renal failure, stage 4 (severe): Code(s): N18.4 - Chronic kidney disease, stage 4 (severe) Status: Chronic Assessment and Plan: Cr was in the mid-2 range in December. Creatinine 3.1 on admission and increased to 3.3 the next day. Cr running 3.3-3.6 range for many days but now 4.1-4.5 for the past few days and climbing despite being off his diuretics. Renal sonogram showed no hydro but distended bladder and over 600 ml residual so cath placed. No change in Cr since Geiger placed so less likely from obstructive uropathy. Renal biopsy on hold due to no significant elevation of autoimmune markers. Diuretic therapy held 02/15. Patient also mildly confused which could be related to the azotemia. . . He continues to have negative fluid balance despite being off diurectics. with continued evidence of fluid overload and uremia started dialysis 02/22 (4) Aortic stenosis: Onset Date: ~12/2019 Code(s): I35.0 - Nonrheumatic aortic (valve) stenosis Status: Acute Assessment and Plan: Echo showng moderate to severe with 1 cm2 valve area. Further recommendations per cardiology. (5) Chronic anemia: Code(s): D64.9 - Anemia, unspecified Status: Acute Assessment and Plan: Patient with chronic anemia mostly in the 10-11 prior to admission. Hgb has dropped into the 9 range and stable. [place] anemia of chronic disease with iron deficiency component as well. He completed IV iron x 5 days. Continue to follow. (6) Hypertension: Code(s): I10 - Essential (primary) hypertension Status: Acute Assessment and Plan: Patient's blood pressure was reviewed on 02/23 Blood pressure well controlled. Will continue current medications with Norvasc, Coreg and Hydralazine. May be able to decelerate bp meds after starting dialysis (7) Type 2 diabetes mellitus with peripheral neuropathy: Code(s): E11.42 - Type 2 diabetes mellitus with diabetic polyneuropathy Status: Acute Assessment and Plan: Last A1c 5.6 in June. The patient's blood glucose was reviewed on 02/23 Glucose remains reasonably well controlled and mostly under 180. Continue to monitor with AccuCheks covering with sliding scale. Hypoglycemia protocol available as needed. Continue current treatment plan. (8) Benign prostatic hyperplasia: Code(s): N40.0 - Benign prostatic hyperplasia without lower urinary tract symptoms Status: Acute Assessment and Plan: BPH with urine retention. Continue finasteride and tamsulosin. This was discussed with Dr Coelho and the patient will see him as outpt. Dr Coelho felt the patient could have Geiger trial here and will d/c geiger for voiding trial now that dialysis has started (9) DVT prophylaxis: Code(s): Z29.9 - Encounter for prophylactic measures, unspecified Status: Acute Assessment and Plan: heparin subcu with stage IV
--- NOTE | 2020-02-24 15:14 | PCPTNOTE ---
Patient declined therapy this afternoon as he is back from dialysis and eating lunch. He refused any therapy. Will follow up with POC tomorrow.
[2020-02-24] MEDS: amLODIPine BESYLATE 5 MG TABLET PO (16:16)
[2020-02-24] MEDS: THERAPEUTIC MULTIVITAMINS/MINERALS TAB (*BKC) 1 TABLET PO (16:17)
[2020-02-24] MEDS: BETAMETHASONE/CLOTRIMAZOLE CR 15 GM TUBE 1 APPLIC TOPICAL ×2 (16:17→20:53)
[2020-02-24] MEDS: ATORVASTATIN 10 MG TABLET PO (16:19)
[2020-02-24] MEDS: PANTOPRAZOLE 40 MG TABLET PO (16:19)
[2020-02-24] MEDS: FUROSEMIDE 80 MG TABLET PO (16:19)
[2020-02-24] MEDS: LORATADINE 10 MG TABLET PO (16:19)
[2020-02-24] MEDS: FINASTERIDE 5 MG TABLET PO (16:20)
[2020-02-24] MEDS: carvediloL 25 MG TABLET PO ×2 (16:22→20:52)
[2020-02-24] MEDS: HEPARIN SODIUM 5,000 UNITS/ML VIAL 5000 UNITS SUB-Q ×2 (16:26→20:53)
[2020-02-24] MEDS: hydrALAZINE HCL 25 MG TABLET PO (16:27)
[2020-02-24] MEDS: DOCUSATE SODIUM 100 MG CAPSULE PO ×2 (16:58→20:52)
[2020-02-24 18:58] LABS: Glucose Point of Care 243 (65-105)
[2020-02-24] MEDS: INSULIN ASPART (*BKC) 100 UNITS/ML SUB-Q (18:58)
[2020-02-24] MEDS: TAMSULOSIN HCL 0.4 MG CAPSULE PO (20:52)
[2020-02-24] MEDS: VITAMIN B COMPLEX CAPSULE 1 CAP PO (20:52)
[2020-02-24 21:18] LABS: Glucose Point of Care 152 (65-105)
[2020-02-25] VITALS (8 sets, daily range): BP systolic 131–153; BP diastolic 59–64; PULSE 63–80; RESP 16–20; TEMP 36.5–37.3; O2SAT 92–95
[2020-02-25] MEDS: GABAPENTIN 300 MG CAPSULE 600 MG PO ×3 (05:49→20:28)
[2020-02-25 06:15] LABS: Basophils Percent Auto 0.3 % (0.2-1.2); Eosinophils Absolute Auto 0.1 K/mm3 (0-0.3); Eosinophils Percent Auto 0.8 % (0-4.4); Hematocrit 31.3 % (42.0-52.0); Immature Granulocyte Absolute 0.14 K/mm3 (0.00-0.031); Immature Granulocyte Percent A 1.1 % (0-0.5); Lymphocytes Percent Auto 6.1 % (18.3-44.2); Mean Corpuscular HGB Conc 31.9 g/dl (32-36); Mean Corpuscular Hemoglobin 31.8 pg (26-34); Mean Corpuscular Volume 99.7 fl (80-100); Mean Platelet Volume 10.5 fl (7.4-10.4); Monocytes Absolute Auto 1.4 K/mm3 (0.1-0.6); Monocytes Percent Auto 10.8 % (2.6-8.5); Neutrophils Absolute Auto 10.6 K/mm3 (1.3-6.7); Neutrophils Percent Auto 80.9 % (45.5-73.1); Platelet Count Result 165 k/mm3 (150-375); Red Blood Count 3.14 M/mm3 (4.6-6.20); Red Cell Distribution Width 15.3 % (11.5-14.5); White Blood Count 13.1 K/mm3 (4.5-10.0)
[2020-02-25 06:55] LABS: Anion Gap 2 mmol/L (8-16); Blood Urea Nitrogen 52 mg/dL (9-20); Calcium 8.6 mg/dL (8.4-10.2); Carbon Dioxide 36 mmol/L (22-30); Chloride 100 mmol/L (98-107); Estimated CRCL calculation 21 ml/min; Estimated Glomerular Filt Rate 21; Glucose 116 mg/dL (75-110); Potassium 3.9 mmol/L (3.4-5.0); Sodium 138 mmol/L (137-145)
[2020-02-25] MEDS: PANTOPRAZOLE 40 MG TABLET PO (08:59)
[2020-02-25] MEDS: BETAMETHASONE/CLOTRIMAZOLE CR 15 GM TUBE 1 APPLIC TOPICAL ×2 (08:59→20:24)
[2020-02-25] MEDS: LORATADINE 10 MG TABLET PO (09:00)
[2020-02-25] MEDS: THERAPEUTIC MULTIVITAMINS/MINERALS TAB (*BKC) 1 TABLET PO (09:00)
[2020-02-25] MEDS: FINASTERIDE 5 MG TABLET PO (09:00)
[2020-02-25] MEDS: ATORVASTATIN 10 MG TABLET PO (09:00)
[2020-02-25] MEDS: amLODIPine BESYLATE 5 MG TABLET PO (09:00)
[2020-02-25] MEDS: hydrALAZINE HCL 25 MG TABLET PO ×3 (09:00→17:59)
[2020-02-25] MEDS: FUROSEMIDE 80 MG TABLET PO ×2 (09:00→17:59)
[2020-02-25] MEDS: DOCUSATE SODIUM 100 MG CAPSULE PO ×2 (09:02→20:31)
[2020-02-25] MEDS: HEPARIN SODIUM 5,000 UNITS/ML VIAL 5000 UNITS SUB-Q ×2 (09:02→20:31)
[2020-02-25] MEDS: carvediloL 25 MG TABLET PO ×2 (09:03→20:24)
[2020-02-25 09:36] LABS: Glucose Point of Care 135 (65-105)
--- NOTE | 2020-02-25 10:03 | WPDANESPN ---
Anes - Prog Note Post-Op Date/Time: 02/25/20 10:03 Cardiovascular status: normal Respiratory status: other Airway patency: baseline Mental status: baseline Post-Op hydration status: normal Vital Signs: Last Vital Signs Temp 36.7 C 02/25/20 06:00 Pulse 75 02/25/20 09:03 Resp 20 02/25/20 06:00 BP 139/59 L 02/25/20 06:00 Pulse Ox 92 02/25/20 06:34 Pain Score (VAS): 0 I/O: Intake & Output 02/24/20 02/25/20 02/25/20 23:59 07:59 15:59 Intake Total 480 50 Output Total 400 Balance 80 50 Laboratory Tests 02/25/20 05:56 02/25/20 05:56 02/24/20 02/24/20 02/24/20 08:14 12:31 18:56 WBC RBC Hgb Hct MCV MCH MCHC RDW Plt Count MPV Immature Gran % (Auto) Neut % (Auto) Lymph % (Auto) Baxter % (Auto) Eos % (Auto) Baso % (Auto) Lymph # (Auto) Baxter # (Auto) Eos # (Auto) Baso # (Auto) Abs Immat Gran (auto) Absolute Neuts (auto) Absolute Nucleated RBC Nucleated RBC % Sodium Potassium Chloride Carbon Dioxide Anion Gap BUN Creatinine Estim Creat Clear Calc Estimated GFR Glucose POC Capillary Glucose 129 H 137 H 243 H Calcium 02/24/20 02/25/20 02/25/20 20:41 05:56 05:56 WBC 13.1 H RBC 3.14 L Hgb 10.0 L Hct 31.3 L MCV 99.7 MCH 31.8 MCHC 31.9 L RDW 15.3 H Plt Count 165 MPV 10.5 H Immature Gran % (Auto) 1.1 H Neut % (Auto) 80.9 H Lymph % (Auto) 6.1 L Baxter % (Auto) 10.8 H Eos % (Auto) 0.8 Baso % (Auto) 0.3 Lymph # (Auto) 0.80 L Baxter # (Auto) 1.4 H Eos # (Auto) 0.1 Baso # (Auto) 0.0 Abs Immat Gran (auto) 0.14 H Absolute Neuts (auto) 10.6 H Absolute Nucleated RBC 0.0 Nucleated RBC % 0.0 Sodium 138 Potassium 3.9 Chloride 100 Carbon Dioxide 36 H Anion Gap 2 L BUN 52 H D Creatinine 2.90 H Estim Creat Clear Calc 21 Estimated GFR 21 L Glucose 116 H POC Capillary Glucose 152 H Calcium 8.6 02/25/20 08:55 WBC RBC Hgb Hct MCV MCH MCHC RDW Plt Count MPV Immature Gran % (Auto) Neut % (Auto) Lymph % (Auto) Baxter % (Auto) Eos % (Auto) Baso % (Auto) Lymph # (Auto) Baxter # (Auto) Eos # (Auto) Baso # (Auto) Abs Immat Gran (auto) Absolute Neuts (auto) Absolute Nucleated RBC Nucleated RBC % Sodium Potassium Chloride Carbon Dioxide Anion Gap BUN Creatinine Estim Creat Clear Calc Estimated GFR Glucose POC Capillary Glucose 135 H Calcium Microbiology 02/22/20 05:46 Urethra Genital Culture - Final Post-procedural complaints: none Patient Feedback: Patient satisfied with anesthetic care.
--- NOTE | 2020-02-25 10:58 | PM.PNNEP ---
Progress Note: A&P Assessment and Plan (1) KENNY (acute kidney injury): Code(s): N17.9 - Acute kidney failure, unspecified Status: Acute Assessment and Plan: is this really KENNY or is this just progression of his known CKD?? creatinine is gradually worsening over the last couple of weeks. however, elevated ESR in association with nephrotic proteinuria is concerning all serologies to date negative (SPE/UPE/REX/dsDNA-ab/hepatitis/ANCA) although C3 was slightly low - renal biopsy still a consideration but not urgent He had dialysis yesterday. Will do another treatment tomorrow if he is still here. Discussed with Dr. Agrawal (2) Chronic progressive renal failure, stage 4 (severe): Code(s): N18.4 - Chronic kidney disease, stage 4 (severe) Status: Chronic Assessment and Plan: baseline creatinine runs around 2.5 - 2.8mg/dl due to diabetes, hypertension, cardiac + vavlular heart disease (systolic + diastolic heart failure along with aortic stenosis) (3) Acute exacerbation of congestive heart failure: Code(s): I50.9 - Heart failure, unspecified Status: Acute Assessment and Plan: Back on diuretics. 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 He will get planning for definitive treatment of his aortic valve as an outpatient. (4) Hypertension: Code(s): I10 - Essential (primary) hypertension Status: Acute Assessment and Plan: BP seems to be doing better (5) Anemia: Code(s): D64.9 - Anemia, unspecified Status: Acute Assessment and Plan: due to iron deficiency and underlying CKD On Epogen with hd. Hemoglobin is improving (6) Diabetes: Code(s): E11.9 - Type 2 diabetes mellitus without complications Status: Chronic Assessment and Plan: on acchecks on SSI Subjective Date/time seen: 02/25/20 10:58 Interval history: Patient Feels and looks a little bit better. Mental status is more together. Sitting up in a chair. Review of Systems Cardiovascular: Cardiovascular: Reports no additional cardiovascular complaints Respiratory: Respiratory: Reports no additional respiratory complaints Gastrointestinal: Gastrointestinal: Reports no additional gastrointestinal complaints Genitourinary: Genitourinary: Reports no additional male genitourinary complaints Exam Narrative: Exam Narrative: General: WD/WN male in NAD Heart: normal S1 and S2; no rub 3/6 systolic ejection murmur Lungs: Fairly clear Abdomen: soft, nontender, nondistended, positive bowel sounds Extremities: no cyanosis or clubbing; trace edema Skin: No rash Objective Data Vital Signs Vital Signs: Vital Signs - 24 hr 02/24/20 11:00 02/24/20 11:15 02/24/20 11:30 Temperature Pulse Rate 57 L 58 L 57 L Respiratory Rate Blood Pressure 144/63 H 153/69 H 122/45 L Pulse Oximetry 02/24/20 11:45 02/24/20 12:00 02/24/20 12:15 Temperature Pulse Rate 60 62 63 Respiratory Rate Blood Pressure 151/69 H 157/55 H 149/45 H Pulse Oximetry 02/24/20 12:30 02/24/20 12:45 02/24/20 12:50 Temperature Pulse Rate 61 57 L 57 L Respiratory Rate Blood Pressure 152/50 H 156/67 H 156/72 H Pulse Oximetry 02/24/20 12:55 02/24/20 14:00 02/24/20 16:22 Temperature 36.6 C 36.2 C L Pulse Rate 59 L 65 68 Respiratory Rate 18 16 Blood Pressure 159/76 H 142/64 H Pulse Oximetry 91 02/24/20 18:47 02/24/20 20:00 02/24/20 20:52 Temperature Pulse Rate 68 74 Respiratory Rate 16 Blood Pressure Pulse Oximetry 91 93 02/24/20 22:00 02/25/20 06:00 02/25/20 06:34 Temperature 37.1 C 36.7 C Pulse Rate 73 63 Respiratory Rate 22 H 20 Blood Pressure 128/63 139/59 L Pulse Oximetry 93 92 92 02/25/20 09:03 Temperature Pulse Rate 75 Respiratory Rate Blood Pressure Pulse Oximetry Intake/Output Intake/Output: Intake & Output
[2020-02-25 12:12] LABS: Glucose Point of Care 170 (65-105)
--- NOTE | 2020-02-25 14:26 | PCPTNOTE ---
Patient refused physical therapy. Reports that he doesn't care if it's ordered- he does not want to participate. PT told patient we will come back tomorrow to attempt again.
--- NOTE | 2020-02-25 15:52 | PM.IMPN ---
Progress Note: A&P Assessment and Plan (1) Acute respiratory failure with hypoxia: Code(s): J96.01 - Acute respiratory failure with hypoxia Status: Acute Assessment and Plan: Secondary to congestive heart failure. COVID test negative. He does have evidence of aspiration with thin liquids. Hypoxia could be related to dysphagia/aspiration as well. Wean O2 as tolerated. Tunnel cath placed 02/22 and hemodialysis day 2 02/23 (2) Acute exacerbation of congestive heart failure: Code(s): I50.9 - Heart failure, unspecified Status: Acute Assessment and Plan: Echo here revealed EF of 55% with diastolic dysfunction Grade I and moderate to severe with moderate MR. BNP 32K. CXR showing pulmonary edema. Started on diuretics with IV Bumex and po Metolazone per nephrology. Cumulative output -5.9L. Lungs sound better but still on O2 and CXR 02/16 looks better. Continue Jamal hose. Off diuretics currently and started hemodialysis 02/22 with session 02/22 and 02/23, will be //Wed as outpatient (3) Chronic progressive renal failure, stage 4 (severe): Code(s): N18.4 - Chronic kidney disease, stage 4 (severe) Status: Chronic Assessment and Plan: Cr was in the mid-2 range in December. Creatinine 3.1 on admission and increased to 3.3 the next day. Cr running 3.3-3.6 range for many days but now 4.1-4.5 for the past few days and climbing despite being off his diuretics. Renal sonogram showed no hydro but distended bladder and over 600 ml residual so cath placed. No change in Cr since Geiger placed so less likely from obstructive uropathy. Renal biopsy on hold due to no significant elevation of autoimmune markers. Diuretic therapy held 02/15. Patient also mildly confused which could be related to the azotemia. . . with continued evidence of fluid overload and uremia started dialysis 02/22 and will continue outpatient dialysis Wednesday//Wednesday BUN today at 52 with creatinine 2.9 (4) Aortic stenosis: Onset Date: ~12/2019 Code(s): I35.0 - Nonrheumatic aortic (valve) stenosis Status: Acute Assessment and Plan: Echo showng moderate to severe with 1 cm2 valve area. Further recommendations per cardiology. (5) Chronic anemia: Code(s): D64.9 - Anemia, unspecified Status: Acute Assessment and Plan: Patient with chronic anemia mostly in the 10-11 prior to admission. Hgb has dropped into the 9 range and stable. [place] anemia of chronic disease with iron deficiency component as well. He completed IV iron x 5 days. Continue to follow. (6) Hypertension: Code(s): I10 - Essential (primary) hypertension Status: Acute Assessment and Plan: Patient's blood pressure was reviewed on 02/23 Blood pressure well controlled. Will continue current medications with Norvasc, Coreg and Hydralazine. May be able to decelerate bp meds after starting dialysis (7) Type 2 diabetes mellitus with peripheral neuropathy: Code(s): E11.42 - Type 2 diabetes mellitus with diabetic polyneuropathy Status: Acute Assessment and Plan: Last A1c 5.6 in June. The patient's blood glucose was reviewed on 02/23 Glucose remains reasonably well controlled and mostly under 180. Continue to monitor with AccuCheks covering with sliding scale. Hypoglycemia protocol available as needed. Continue current treatment plan. (8) Benign prostatic hyperplasia: Code(s): N40.0 - Benign prostatic hyperplasia without lower urinary tract symptoms Status: Acute Assessment and Plan: BPH with urine retention. Continue finasteride and tamsulosin. This was discussed with Dr Coelho and the patient will see him as outpt. Dr Coelho felt the patient could have Geiger trial here and will d/c geiger for voiding trial 02/23. Today WBC was elevated slightly and patient had incontinence. Straight catheterization revealed 200 mL of cloud
[2020-02-25 19:43] LABS: Glucose Point of Care 124 (65-105)
[2020-02-25] MEDS: VITAMIN B COMPLEX CAPSULE 1 CAP PO (20:27)
[2020-02-25] MEDS: TAMSULOSIN HCL 0.4 MG CAPSULE PO (20:28)
[2020-02-25 22:24] LABS: Add Urine Microscopic? YES; Appearance Urine Turbid (Clear); Bilirubin Urine Negative (Negative); Blood Urine Negative (Negative); Color Urine Amber (Yellow); Glucose Urine UA Negative (Negative); Ketones Urine Negative (Negative); Leukocyte Esterase Ur 2+ LEU/UL (NEGATIVE); Nitrate Urine Negative (Negative); Protein Urine 3+ mg/dL (Negative); Renal Epithelial Cells Urine Rare /hpf (None Seen); Specific Grav Ur 1.018 (1.001-1.035); Squamous Epithelial Cell Urine Rare /hpf (Few); Urobilinogen Urine Negative mg/dL (<2.0)
[2020-02-26] VITALS (28 sets, daily range): BP systolic 124–158; BP diastolic 54–71; PULSE 64–81; RESP 16–20; TEMP 36.5–37.6; O2SAT 84–96
[2020-02-26] MEDS: GABAPENTIN 300 MG CAPSULE 600 MG PO ×3 (05:58→20:10)
[2020-02-26 06:14] LABS: Basophils Percent Auto 0.3 % (0.2-1.2); Eosinophils Absolute Auto 0.1 K/mm3 (0-0.3); Eosinophils Percent Auto 0.8 % (0-4.4); Hematocrit 28.4 % (42.0-52.0); Hemoglobin 9.1 g/dL (14.0-18.0); Immature Granulocyte Absolute 0.05 K/mm3 (0.00-0.031); Immature Granulocyte Percent A 0.8 % (0-0.5); Lymphocytes Absolute Auto 0.39 K/mm3 (0.9-3.2); Lymphocytes Percent Auto 6.2 % (18.3-44.2); Mean Corpuscular Hemoglobin 32.4 pg (26-34); Mean Corpuscular Volume 101.1 fl (80-100); Mean Platelet Volume 10.9 fl (7.4-10.4); Monocytes Absolute Auto 1.2 K/mm3 (0.1-0.6); Monocytes Percent Auto 19.1 % (2.6-8.5); Neutrophils Absolute Auto 4.6 K/mm3 (1.3-6.7); Neutrophils Percent Auto 72.8 % (45.5-73.1); Platelet Count Result 128 k/mm3 (150-375); Red Blood Count 2.81 M/mm3 (4.6-6.20); Red Cell Distribution Width 15.4 % (11.5-14.5); White Blood Count 6.3 K/mm3 (4.5-10.0)
[2020-02-26 06:29] LABS: Anion Gap 8 mmol/L (8-16); Blood Urea Nitrogen 57 mg/dL (9-20); Calcium 8.4 mg/dL (8.4-10.2); Carbon Dioxide 32 mmol/L (22-30); Chloride 100 mmol/L (98-107); Estimated CRCL calculation 17 ml/min; Estimated Glomerular Filt Rate 16; Glucose 110 mg/dL (75-110); Potassium 3.7 mmol/L (3.4-5.0); Sodium 140 mmol/L (137-145)
--- NOTE | 2020-02-26 08:09 | PC.NURSE ---
To dialysis per bed.
--- NOTE | 2020-02-26 08:30 | PCPTNOTE ---
The patient treatment was not able to be completed this A.M. due to patient out of room for dialysis. Will plan to continue treatment per plan of care.
[2020-02-26 09:04] LABS: Glucose Point of Care 107 (65-105)
--- NOTE | 2020-02-26 09:15 | P.PNNP_ITS ---
Progress Note: A&P Assessment and Plan (1) KENNY (acute kidney injury): Code(s): N17.9 - Acute kidney failure, unspecified Status: Acute Assessment and Plan: * is this really KENNY or is this just progression of his known CKD?? * creatinine jose rafael gradually worsening over the last couple of weeks. * however, elevated ESR in association with nephrotic proteinuria is concerning * all serologies to date negative (SPE/UPE/REX/dsDNA-ab/hepatitis/ANCA) although C3 was slightly low - renal biopsy still a consideration but not urgent * now on renal replacement therapy/dialysis * HD today * follow electrolytes, volume status, and clearance (2) Chronic progressive renal failure, stage 4 (severe): Code(s): N18.4 - Chronic kidney disease, stage 4 (severe) Status: Chronic Assessment and Plan: * baseline creatinine runs around 2.5 - 2.8mg/dl * due to diabetes, hypertension, cardiac + vavlular heart disease (systolic + diastolic heart failure along with aortic stenosis) (3) Acute exacerbation of congestive heart failure: Code(s): I50.9 - Heart failure, unspecified Status: Acute Assessment and Plan: * Cardiology following * planning for definitive treatment of his aortic valve as an outpatient (4) Hypertension: Code(s): I10 - Essential (primary) hypertension Status: Acute Assessment and Plan: * BP seems to be doing better * follow trend of hemodynamics (5) Anemia: Code(s): D64.9 - Anemia, unspecified Status: Acute Assessment and Plan: * due to iron deficiency and underlying CKD * on Epogen with HD * H/H improving (6) Diabetes: Code(s): E11.9 - Type 2 diabetes mellitus without complications Status: Chronic Assessment and Plan: * on acchecks * on SSI Will continue to follow -- would not be opposed to discharge from renal perspective as long as outpatient dialysis has been finalized. Subjective Date/time seen: 02/26/20 09:15 Chart reviewed since last seen -- tolerating dialysis at the time of my visit (seen on HD at ~ 9:08AM); no apparent distress voiced; breathing and mentation clearly seem to be doing significantly better; no events overnight or earlier th is AM. Exam Narrative: Exam Narrative: General: WD/WN male in NAD Heart: normal S1 and S2; 3/6 systolic ejection murmur Lungs: clear anteriorly Abdomen: soft, nontender, nondistended, positive bowel sounds Extremities: no cyanosis or clubbing; trace edema Skin: warm and dry Objective Data Vital Signs Vital Signs: Vital Signs Temp Pulse Resp BP Pulse Ox 02/26/20 09:00 71 142/64 H 02/26/20 08:45 74 124/64 02/26/20 08:30 68 152/68 H 02/26/20 08:16 70 156/69 H 02/26/20 08:11 37.6 C H 70 16 145/61 H 02/26/20 08:00 91 02/26/20 06:00 36.6 C 64 20 146/68 H 90 02/25/20 22:00 37.3 C 67 20 131/64 94 02/25/20 20:45 67 20 94 02/25/20 20:24 80 02/25/20 14:00 36.5 C 77 16 153/59 H 95 Intake/Output Intake/Output: Intake & Output 02/23/20 02/24/20 02/25/20 02/26/20 23:59 23:59 23:59 23:59 Intake Total 1800 1440 820 100 Output Total 1970 3650 150 700 Kfjqpao -170 2219 670 -600 Meds/Results Medications: Active Medications
--- NOTE | 2020-02-26 09:15 | PM.PNNEP ---
Progress Note: A&P Assessment and Plan (1) KENNY (acute kidney injury): Code(s): N17.9 - Acute kidney failure, unspecified Status: Acute Assessment and Plan: is this really KENNY or is this just progression of his known CKD?? creatinine jose rafael gradually worsening over the last couple of weeks. however, elevated ESR in association with nephrotic proteinuria is concerning all serologies to date negative (SPE/UPE/REX/dsDNA-ab/hepatitis/ANCA) although C3 was slightly low - renal biopsy still a consideration but not urgent now on renal replacement therapy/dialysis HD today follow electrolytes, volume status, and clearance (2) Chronic progressive renal failure, stage 4 (severe): Code(s): N18.4 - Chronic kidney disease, stage 4 (severe) Status: Chronic Assessment and Plan: baseline creatinine runs around 2.5 - 2.8mg/dl due to diabetes, hypertension, cardiac + vavlular heart disease (systolic + diastolic heart failure along with aortic stenosis) (3) Acute exacerbation of congestive heart failure: Code(s): I50.9 - Heart failure, unspecified Status: Acute Assessment and Plan: Cardiology following planning for definitive treatment of his aortic valve as an outpatient (4) Hypertension: Code(s): I10 - Essential (primary) hypertension Status: Acute Assessment and Plan: BP seems to be doing better follow trend of hemodynamics (5) Anemia: Code(s): D64.9 - Anemia, unspecified Status: Acute Assessment and Plan: due to iron deficiency and underlying CKD on Epogen with HD H/H improving (6) Diabetes: Code(s): E11.9 - Type 2 diabetes mellitus without complications Status: Chronic Assessment and Plan: on acchecks on SSI Will continue to follow -- would not be opposed to discharge from renal perspective as long as outpatient dialysis has been finalized. Subjective Date/time seen: 02/26/20 09:15 Chart reviewed since last seen -- tolerating dialysis at the time of my visit (seen on HD at ~ 9:08AM); no apparent distress voiced; breathing and mentation clearly seem to be doing significantly better; no events overnight or earlier this AM. Exam Narrative: Exam Narrative: General: WD/WN male in NAD Heart: normal S1 and S2; 3/6 systolic ejection murmur Lungs: clear anteriorly Abdomen: soft, nontender, nondistended, positive bowel sounds Extremities: no cyanosis or clubbing; trace edema Skin: warm and dry Objective Data Vital Signs Vital Signs: Vital Signs Temp Pulse Resp BP Pulse Ox 02/26/20 09:00 71 142/64 H 02/26/20 08:45 74 124/64 02/26/20 08:30 68 152/68 H 02/26/20 08:16 70 156/69 H 02/26/20 08:11 37.6 C H 70 16 145/61 H 02/26/20 08:00 91 02/26/20 06:00 36.6 C 64 20 146/68 H 90 02/25/20 22:00 37.3 C 67 20 131/64 94 02/25/20 20:45 67 20 94 02/25/20 20:24 80 02/25/20 14:00 36.5 C 77 16 153/59 H 95 Intake/Output Intake/Output: Intake & Output 02/23/20 02/24/20 02/25/20 02/26/20 23:59 23:59 23:59 23:59 Intake Total 1800 1440 820 100 Output Total 1970 3650 150 700 Balance -170 -2210 670 -600 Meds/Results Medications: Active Medications Generic Name Dose Route Start Last Admin Trade Name Freq PRN Reason Stop Dose Admin Acetaminophen 650 mg 02/06/20 20:27 02/24/20 04:07 Acetaminophen 325 Mg Tablet PO 650 mg Q12H PRN Administration Pain Amlodipine Besylate 5 mg 02/07/20 09:00 02/25/20 09:00 Amlodipine Besylate 5 Mg Tablet PO 5 mg DAILY TIRSO Administration Atorvastatin Calcium 10 mg 02/07/20 09:00 02/25/20 09:00 Atorvastatin 10 Mg Tablet PO 10 mg DAILY TIRSO Administration Calcium Carbonate 500 mg 02/09/20 08:00 02/25/20 08:59 Calcium/Vitamin D 500 Mg Tablet PO 500 mg DAILY@0800 [facility] Administration Carvedilol 25 mg 02/06/20 21:00 02/25/20 20:24 C
[2020-02-26] MEDS: EPOETIN ALFA-EPBX 10,000 UNITS/ML VIAL 10000 UNITS IV PUSH (10:04)
[2020-02-26] MEDS: HEPARIN SODIUM 1,000 UNITS/ML VIAL 5000 UNITS (10:05)
[2020-02-26] MEDS: SODIUM CHLORIDE 0.9% IV 1,000 ML 999 ML IV CONT (10:05)
--- NOTE | 2020-02-26 11:30 | PCNFU ---
Nutrition Follow-Up Complete: Nutrition Follow-Up Complete: Goal: Meet total nutrition needs Pt current nutrition is Renal Dialysis, Mildly Thick liquids Nutrition recommendation: Agree with diet, addition of Nepro once daily. Last recorded weight is 98 kg, down from 111.1 kg. Bowel Motility: +BM 02/24 Labs Reviewed: Hct 28.4,Hgb 9.1,GFR 16,BUN 57,Cr 3.6,BUN 57 Meds Noted:Oscal, Colace, Norvasc, Heparin, Zofran, Novolog, MTV, B complex, Protonix Additional Notes: Nutrition follow up today. Patient started on Dialysis. Currently in Dialysis this morning. Diet order has been changed to a Renal Dialysis diet with Mildly Thick liquids, Level 2. Diet supplement Nepro once daily providing an additional 425 kcals and 19 gms protein. Pt eating an average of 50% of meals a day. Agree with Renal Dialysis diet at this time. Monitoring: We will continue to follow PO intake, wt, and labs every 5 days.
[2020-02-26] MEDS: FINASTERIDE 5 MG TABLET PO (11:37)
[2020-02-26] MEDS: ATORVASTATIN 10 MG TABLET PO (11:37)
[2020-02-26] MEDS: PANTOPRAZOLE 40 MG TABLET PO (11:37)
[2020-02-26] MEDS: FUROSEMIDE 80 MG TABLET PO ×2 (11:37→18:37)
[2020-02-26] MEDS: THERAPEUTIC MULTIVITAMINS/MINERALS TAB (*BKC) 1 TABLET PO (11:37)
[2020-02-26] MEDS: LORATADINE 10 MG TABLET PO (11:38)
[2020-02-26] MEDS: carvediloL 25 MG TABLET PO ×2 (11:39→20:11)
[2020-02-26] MEDS: amLODIPine BESYLATE 5 MG TABLET PO (11:40)
[2020-02-26] MEDS: BETAMETHASONE/CLOTRIMAZOLE CR 15 GM TUBE 1 APPLIC TOPICAL ×2 (11:40→20:10)
[2020-02-26] MEDS: DOCUSATE SODIUM 100 MG CAPSULE PO ×2 (11:43→20:16)
--- NOTE | 2020-02-26 12:03 | PC.NURSE ---
Back from dialysis per bed.
--- NOTE | 2020-02-26 13:00 | PCOTNOTE ---
Attempted to see Patient at this time. Patient eating lunch, looked as if he needed assistance, declining to speak to me. Patient did verbalize NO, none of your business . Patient declining to participate, per RN Patient is leaving today.
--- NOTE | 2020-02-26 13:46 | HOMEO2EVAL ---
Home Oxygen Evaluation RC: Home Oxygen (O2) Evaluation Start: 02/26/20 12:35 Freq: ONCE Status: Active Protocol: RPE Activity Type Activity Date Activity User E-Sign Co-Sign Detail Recorded Client Recorded Date Recorded By Document 02/26/20 13:20 [email or web address] [email or web address] 02/26/20 13:45 KRM Document 02/26/20 13:22 [email or web address] [email or web address] 02/26/20 13:45 KRM Document 02/26/20 13:24 [email or web address] [email or web address] 02/26/20 13:45 KRM Document 02/26/20 13:26 [email or web address] [email or web address] 02/26/20 13:45 KRM Document 02/26/20 13:28 [email or web address] [email or web address] 02/26/20 13:45 KRM 02/26/20 02/26/20 02/26/20 13:20 13:22 13:24 Home O2 Evaluation Test Phase Resting Resting Resting Oxygen Delivery Room Air Nasal Cannula Nasal Cannula Oxygen Flow Rate (L/min) 1 2 Pulse Oximetry (90-100 %) 85 L 84 L 86 L Pulse Rate (60-100 beats/min) 81 74 74 Activity Tolerance Home Oxygen Evaluation Comments Treatment Charges O2 Evaluation 02/26/20 02/26/20 13:26 13:28 Home O2 Evaluation Test Phase Resting Exercise Oxygen Delivery Nasal Cannula Nasal Cannula Oxygen Flow Rate (L/min) 3 3 Pulse Oximetry (90-100 %) 93 92 Pulse Rate (60-100 beats/min) 75 78 Activity Tolerance Poor Home Oxygen Evaluation Comments 3 LPM AT REST AND WITH ACTIVITY. Treatment Charges
--- NOTE | 2020-02-26 14:17 | PCRCNOTE ---
HOME O2 EVALUATION DONE. PATIENT QUALIFIED FOR 3LPM AT REST AND WITH ACTIVITY. SPOKE WITH DAUGHTER AND SHE WAS OKAY WITH USING [facility] [place]. FAXED INFO TO [facility]. TANK IN ROOM.
[2020-02-26] MEDS: hydrALAZINE HCL 25 MG TABLET PO ×2 (14:59→18:37)
--- NOTE | 2020-02-26 16:37 | PC.NURSE ---
Izabel and I put patient from chair into wheelchair for discharge @ 1505. Wheeled patient downstairs to where daughter was picking him up. Patient was unable to get into the vehicle with our assistance. 2 other [facility] staff members came to help because patient was sitting intermediate in the vehicle and on my leg. Patient was assisted back into the wheelchair with 3-4 staff members. Daughter witnessed this and agreed with us that patient cannot take him home. Called [facility] to discuss this with her. Notified MD and care coordination. All agreeable to take patient back into his room and continue care. Daughter and patient is on board for possible SNF vs assisted placement.
--- NOTE | 2020-02-26 17:58 | PM.IMPN ---
Progress Note: A&P Assessment and Plan (1) Acute respiratory failure with hypoxia: Code(s): J96.01 - Acute respiratory failure with hypoxia Status: Acute Assessment and Plan: Secondary to congestive heart failure. COVID test negative. He does have evidence of aspiration with thin liquids. Hypoxia could be related to dysphagia/aspiration as well. Wean O2 as tolerated. Tunnel cath placed 02/22 and hemodialysis today third session (2) Acute exacerbation of congestive heart failure: Code(s): I50.9 - Heart failure, unspecified Status: Acute Assessment and Plan: Echo here revealed EF of 55% with diastolic dysfunction Grade I and moderate to severe with moderate MR. BNP 32K. CXR showing pulmonary edema. Started on diuretics with IV Bumex and po Metolazone per nephrology. Renal function did not return and continued to have edema and congestion so dialysis started , will be //Wed as outpatient after this week. (3) Chronic progressive renal failure, stage 4 (severe): Code(s): N18.4 - Chronic kidney disease, stage 4 (severe) Status: Chronic Assessment and Plan: Cr was in the mid-2 range in December. Creatinine 3.1 on admission and increased to 3.3 the next day. Cr running 3.3-3.6 range for many days but now 4.1-4.5 for the past few days and climbing despite being off his diuretics. Renal sonogram showed no hydro but distended bladder and over 600 ml residual so cath placed. No change in Cr since Geiger placed so less likely from obstructive uropathy. . . with continued evidence of fluid overload and uremia started dialysis 02/22 and will continue outpatient dialysis Wednesday//Wednesday after this week. As above 3rd dialysis session today (4) Aortic stenosis: Onset Date: ~12/2019 Code(s): I35.0 - Nonrheumatic aortic (valve) stenosis Status: Acute Assessment and Plan: Echo showng moderate to severe with 1 cm2 valve area. Further recommendations per cardiology. (5) Chronic anemia: Code(s): D64.9 - Anemia, unspecified Status: Acute Assessment and Plan: Patient with chronic anemia mostly in the 10-11 prior to admission. Hgb has dropped into the 9 range and stable. [place] anemia of chronic disease with iron deficiency component as well. He completed IV iron x 5 days. Continue to follow. (6) Hypertension: Code(s): I10 - Essential (primary) hypertension Status: Acute Assessment and Plan: Patient's blood pressure was reviewed on 02/25 Blood pressure well controlled. Will continue current medications with Norvasc, Coreg and Hydralazine. May be able to decelerate bp meds after starting dialysis (7) Type 2 diabetes mellitus with peripheral neuropathy: Code(s): E11.42 - Type 2 diabetes mellitus with diabetic polyneuropathy Status: Acute Assessment and Plan: Last A1c 5.6 in June. The patient's blood glucose was reviewed on 02/25 Glucose remains reasonably well controlled and mostly under 180. Continue to monitor with AccuCheks covering with sliding scale. Hypoglycemia protocol available as needed. Continue current treatment plan. (8) Benign prostatic hyperplasia: Code(s): N40.0 - Benign prostatic hyperplasia without lower urinary tract symptoms Status: Acute Assessment and Plan: BPH with urine retention. Continue finasteride and tamsulosin. This was discussed with Dr Coelho and the patient will see him as outpt. Dr Coelho felt the patient could have Geiger trial here and will d/c geiger for voiding trial 02/23. Today WBC was elevated slightly and patient had incontinence. Straight catheterization revealed 200 mL of cloudy urine all so Geiger was left in and started patient on broad-spectrum antibiotic Zosyn pending results of culture (9) DVT prophylaxis: Code(s): Z29.9 - Encounter for prophylactic measures, unspecified Sta
[2020-02-26 18:48] LABS: Glucose Point of Care 102 (65-105)
[2020-02-26] MEDS: HEPARIN SODIUM 5,000 UNITS/ML VIAL 5000 UNITS SUB-Q (20:16)
[2020-02-26] MEDS: TAMSULOSIN HCL 0.4 MG CAPSULE PO (20:16)
[2020-02-26] MEDS: VITAMIN B COMPLEX CAPSULE 1 CAP PO (20:17)
[2020-02-27 00:37] LABS: Glucose Point of Care 138 (65-105)
[2020-02-27 06:00] VITALS: BP 141/54; PULSE 62; RESP 18; TEMP 37.6; O2SAT 98
[2020-02-27] MEDS: GABAPENTIN 300 MG CAPSULE 600 MG PO ×3 (06:31→21:01)
[2020-02-27 06:57] LABS: Basophils Percent Auto 0.2 % (0.2-1.2); Eosinophils Percent Auto 0.2 % (0-4.4); Hematocrit 28.5 % (42.0-52.0); Hemoglobin 8.9 g/dL (14.0-18.0); Immature Granulocyte Absolute 0.05 K/mm3 (0.00-0.031); Lymphocytes Absolute Auto 0.57 K/mm3 (0.9-3.2); Mean Corpuscular HGB Conc 31.2 g/dl (32-36); Mean Corpuscular Hemoglobin 31.4 pg (26-34); Mean Corpuscular Volume 100.7 fl (80-100); Mean Platelet Volume 11.1 fl (7.4-10.4); Monocytes Absolute Auto 1.4 K/mm3 (0.1-0.6); Monocytes Percent Auto 26.1 % (2.6-8.5); Neutrophils Absolute Auto 3.2 K/mm3 (1.3-6.7); Neutrophils Percent Auto 61.5 % (45.5-73.1); Platelet Count Result 120 k/mm3 (150-375); Red Blood Count 2.83 M/mm3 (4.6-6.20); Red Cell Distribution Width 15.8 % (11.5-14.5); White Blood Count 5.2 K/mm3 (4.5-10.0)
[2020-02-27 07:13] LABS: Anion Gap 7 mmol/L (8-16); Blood Urea Nitrogen 40 mg/dL (9-20); Calcium 8.5 mg/dL (8.4-10.2); Carbon Dioxide 29 mmol/L (22-30); Chloride 105 mmol/L (98-107); Estimated CRCL calculation 19 ml/min; Estimated Glomerular Filt Rate 19; Glucose 98 mg/dL (75-110); Potassium 3.9 mmol/L (3.4-5.0); Sodium 141 mmol/L (137-145)
[2020-02-27 08:00] VITALS: O2SAT 98
[2020-02-27] MEDS: FINASTERIDE 5 MG TABLET PO (09:35)
[2020-02-27] MEDS: DOCUSATE SODIUM 100 MG CAPSULE PO ×2 (09:35→22:01)
[2020-02-27 09:36] VITALS: PULSE 60
[2020-02-27] MEDS: carvediloL 25 MG TABLET PO ×2 (09:36→21:00)
[2020-02-27] MEDS: amLODIPine BESYLATE 5 MG TABLET PO (09:36)
[2020-02-27] MEDS: PANTOPRAZOLE 40 MG TABLET PO (09:36)
[2020-02-27] MEDS: THERAPEUTIC MULTIVITAMINS/MINERALS TAB (*BKC) 1 TABLET PO (09:36)
[2020-02-27] MEDS: LORATADINE 10 MG TABLET PO (09:37)
[2020-02-27] MEDS: FUROSEMIDE 80 MG TABLET PO ×2 (09:37→18:22)
[2020-02-27] MEDS: ATORVASTATIN 10 MG TABLET PO (09:37)
[2020-02-27] MEDS: hydrALAZINE HCL 25 MG TABLET PO ×3 (09:37→18:22)
[2020-02-27] MEDS: BETAMETHASONE/CLOTRIMAZOLE CR 15 GM TUBE 1 APPLIC TOPICAL ×2 (09:38→21:03)
[2020-02-27] MEDS: HEPARIN SODIUM 5,000 UNITS/ML VIAL 5000 UNITS SUB-Q ×2 (09:42→21:58)
--- NOTE | 2020-02-27 11:08 | P.PNNP_ITS ---
Progress Note: A&P Assessment and Plan (1) KENNY (acute kidney injury): Code(s): N17.9 - Acute kidney failure, unspecified Status: Acute Assessment and Plan: * is this really KENNY or is this just progression of his known CKD?? * creatinine jose rafael gradually worsening over the last couple of weeks. * however, elevated ESR in association with nephrotic proteinuria is concerning * all serologies to date negative (SPE/UPE/REX/dsDNA-ab/hepatitis/ANCA) although C3 was slightly low - renal biopsy still a consideration but not urgent * now on renal replacement therapy/dialysis * HD tomorrow * follow electrolytes, volume status, and clearance (2) Chronic progressive renal failure, stage 4 (severe): Code(s): N18.4 - Chronic kidney disease, stage 4 (severe) Status: Chronic Assessment and Plan: * baseline creatinine runs around 2.5 - 2.8mg/dl * due to diabetes, hypertension, cardiac + vavlular heart disease (systolic + diastolic heart failure along with aortic stenosis) (3) Acute exacerbation of congestive heart failure: Code(s): I50.9 - Heart failure, unspecified Status: Acute Assessment and Plan: * Cardiology following * planning for definitive treatment of his aortic valve as an outpatient (4) Hypertension: Code(s): I10 - Essential (primary) hypertension Status: Acute Assessment and Plan: * BP seems to be doing better * follow trend of hemodynamics (5) Anemia: Code(s): D64.9 - Anemia, unspecified Status: Acute Assessment and Plan: * due to iron deficiency and underlying CKD * on Epogen with HD * H/H improving (6) UTI (urinary tract infection): Code(s): N39.0 - Urinary tract infection, site not specified Status: Acute Assessment and Plan: * urine culture with Gram negative bacilli * on antibiotics * follow culture results (7) Diabetes: Code(s): E11.9 - Type 2 diabetes mellitus without complications Status: Chronic Assessment and Plan: * on acchecks * on SSI Will continue to follow Subjective Date/time seen: 02/27/20 11:08 Tolerated dialysis yesterday without any issues or problems; was tentatively pl anned for discharge yesterday but he is apparently more weak than originally thought so discharge to home cancelled in favor of facility placement; no distress voiced at this time. Exam Narrative: Exam Narrative: General: WD/WN male in NAD Heart: normal S1 and S2; 3/6 systolic ejection murmur Lungs: clear anteriorly Abdomen: soft, nontender, nondistended, positive bowel sounds Extremities: no cyanosis or clubbing; trace edema Skin: warm and intact Objective Data Vital Signs Vital Signs: Vital Signs Temp Pulse Resp BP Pulse Ox 02/27/20 09:36 60 02/27/20 08:00 98 02/27/20 06:00 37.6 C 62 18 141/54 H 98 02/26/20 22:00 36.8 C 69 20 138/68 96 02/26/20 20:30 69 20 96 02/26/20 20:11 72 02/26/20 14:00 36.9 C 77 18 139/54 L 91 02/26/20 13:28 78 92 02/26/20 13:26 75 93 02/26/20 13:24 74 86 L 02/26/20 13:22 74 84 L 02/26/20 13:20 81 85 L 02/26/20 12:32 92 02/26/20 11:39 74 02/26/20 11:20 37.6 C 71 16 149/67 H 02/26/20 11:16 68 152/71 H Intake/Output I
--- NOTE | 2020-02-27 11:08 | PM.PNNEP ---
Progress Note: A&P Assessment and Plan (1) KENNY (acute kidney injury): Code(s): N17.9 - Acute kidney failure, unspecified Status: Acute Assessment and Plan: is this really KENNY or is this just progression of his known CKD?? creatinine jose rafael gradually worsening over the last couple of weeks. however, elevated ESR in association with nephrotic proteinuria is concerning all serologies to date negative (SPE/UPE/REX/dsDNA-ab/hepatitis/ANCA) although C3 was slightly low - renal biopsy still a consideration but not urgent now on renal replacement therapy/dialysis HD tomorrow follow electrolytes, volume status, and clearance (2) Chronic progressive renal failure, stage 4 (severe): Code(s): N18.4 - Chronic kidney disease, stage 4 (severe) Status: Chronic Assessment and Plan: baseline creatinine runs around 2.5 - 2.8mg/dl due to diabetes, hypertension, cardiac + vavlular heart disease (systolic + diastolic heart failure along with aortic stenosis) (3) Acute exacerbation of congestive heart failure: Code(s): I50.9 - Heart failure, unspecified Status: Acute Assessment and Plan: Cardiology following planning for definitive treatment of his aortic valve as an outpatient (4) Hypertension: Code(s): I10 - Essential (primary) hypertension Status: Acute Assessment and Plan: BP seems to be doing better follow trend of hemodynamics (5) Anemia: Code(s): D64.9 - Anemia, unspecified Status: Acute Assessment and Plan: due to iron deficiency and underlying CKD on Epogen with HD H/H improving (6) UTI (urinary tract infection): Code(s): N39.0 - Urinary tract infection, site not specified Status: Acute Assessment and Plan: urine culture with Gram negative bacilli on antibiotics follow culture results (7) Diabetes: Code(s): E11.9 - Type 2 diabetes mellitus without complications Status: Chronic Assessment and Plan: on acchecks on SSI Will continue to follow Subjective Date/time seen: 02/27/20 11:08 Tolerated dialysis yesterday without any issues or problems; was tentatively planned for discharge yesterday but he is apparently more weak than originally thought so discharge to home cancelled in favor of facility placement; no distress voiced at this time. Exam Narrative: Exam Narrative: General: WD/WN male in NAD Heart: normal S1 and S2; 3/6 systolic ejection murmur Lungs: clear anteriorly Abdomen: soft, nontender, nondistended, positive bowel sounds Extremities: no cyanosis or clubbing; trace edema Skin: warm and intact Objective Data Vital Signs Vital Signs: Vital Signs Temp Pulse Resp BP Pulse Ox 02/27/20 09:36 60 02/27/20 08:00 98 02/27/20 06:00 37.6 C 62 18 141/54 H 98 02/26/20 22:00 36.8 C 69 20 138/68 96 02/26/20 20:30 69 20 96 02/26/20 20:11 72 02/26/20 14:00 36.9 C 77 18 139/54 L 91 02/26/20 13:28 78 92 02/26/20 13:26 75 93 02/26/20 13:24 74 86 L 02/26/20 13:22 74 84 L 02/26/20 13:20 81 85 L 02/26/20 12:32 92 02/26/20 11:39 74 02/26/20 11:20 37.6 C 71 16 149/67 H 02/26/20 11:16 68 152/71 H Intake/Output Intake/Output: Intake & Output 02/24/20 02/25/20 02/26/20 02/27/20 23:59 23:59 23:59 23:59 Intake Total 1440 820 640 0 Output Total 3650 150 3100 800 Balance -2210 922 -6466 -800 Meds/Results Medications: Active Medications Generic Name Dose Route Start Last Admin Trade Name Viviane PRN Reason Stop Dose Admin Acetaminophen 650 mg 02/06/20 20:27 02/24/20 04:07 Acetaminophen 325 Mg Tablet PO 650 mg Q12H PRN Administration Pain Amlodipine Besylate 5 mg 02/07/20 09:00 02/27/20 09:36 Amlodipine Besylate 5 Mg Tablet PO 5 mg DAILY TIRSO Administration Atorvastatin Calcium 10 mg 02/07/20 09:00 02/27/20 09
[2020-02-27 13:26] LABS: Glucose Point of Care 145 (65-105)
[2020-02-27 13:26] LABS: Glucose Point of Care 110 (65-105)
[2020-02-27 14:00] VITALS: BP 124/48; PULSE 67; RESP 20; TEMP 36.9; O2SAT 95
--- NOTE | 2020-02-27 14:38 | PM.IMPN ---
Progress Note: A&P Assessment and Plan (1) Acute respiratory failure with hypoxia: Code(s): J96.01 - Acute respiratory failure with hypoxia Status: Acute Assessment and Plan: Secondary to congestive heart failure. COVID test negative. He does have evidence of aspiration with thin liquids. Hypoxia could be related to dysphagia/aspiration as well. Wean O2 as tolerated. Tunnel cath placed 02/22 and now on HD. (2) Acute exacerbation of congestive heart failure: Code(s): I50.9 - Heart failure, unspecified Status: Acute Assessment and Plan: Echo here revealed EF of 55% with diastolic dysfunction Grade I and moderate to severe with moderate MR. BNP 32K. CXR showing pulmonary edema. Started on diuretics with IV Bumex and po Metolazone per nephrology. Cumulative output -5.9L. Lungs sound better but still on O2 and CXR 02/22 looks worse. Continue Jamal hose. Started hemodialysis. Contineu HD to control fluid status. Lasix resumed (3) Chronic progressive renal failure, stage 4 (severe): Code(s): N18.4 - Chronic kidney disease, stage 4 (severe) Status: Chronic Assessment and Plan: Cr was in the mid-2 range in December. Creatinine 3.1 on admission and increased to 3.3 the next day. Cr running 3.3-3.6 range for many days but now 4.1-4.5 for the past few days and climbing despite being off his diuretics. Renal sonogram showed no hydro but distended bladder and over 600 ml residual so cath placed. No change in Cr since Geiger placed so less likely from obstructive uropathy. Renal biopsy on hold due to no significant elevation of autoimmune markers. Diuretic therapy held 02/15. Patient also mildly confused which could be related to the azotemia. With continued evidence of fluid overload and uremia, he was started dialysis 02/22 and will continue outpatient dialysis Wednesday//Wednesday (4) Aortic stenosis: Onset Date: ~12/2019 Code(s): I35.0 - Nonrheumatic aortic (valve) stenosis Status: Acute Assessment and Plan: Echo showng moderate to severe with 1 cm2 valve area. Further recommendations per cardiology. (5) Chronic anemia: Code(s): D64.9 - Anemia, unspecified Status: Acute Assessment and Plan: Patient with chronic anemia mostly in the 10-11 prior to admission. Hgb has dropped into the 9 range and stable. [place] anemia of chronic disease with iron deficiency component as well. He completed IV iron x 5 days. Continue to follow. (6) Hypertension: Code(s): I10 - Essential (primary) hypertension Status: Acute Assessment and Plan: Patient's blood pressure was reviewed on 02/26 Blood pressure well controlled. Will continue current medications with Norvasc, Coreg and Hydralazine. May be able to decelerate bp meds after starting dialysis (7) Type 2 diabetes mellitus with peripheral neuropathy: Code(s): E11.42 - Type 2 diabetes mellitus with diabetic polyneuropathy Status: Acute Assessment and Plan: Last A1c 5.6 in June. The patient's blood glucose was reviewed on 02/26 Glucose remains reasonably well controlled and mostly under 180. Continue to monitor with AccuCheks covering with sliding scale. Hypoglycemia protocol available as needed. Continue current treatment plan. (8) Benign prostatic hyperplasia: Code(s): N40.0 - Benign prostatic hyperplasia without lower urinary tract symptoms Status: Acute Assessment and Plan: BPH with urine retention. Continue finasteride and tamsulosin. This was discussed with Dr Coelho and the patient will see him as outpt. Dr Coelho felt the patient could have Geiger trial here and will d/c geiger for voiding trial 02/23. WBC was elevated slightly and patient had incontinence. Straight catheterization revealed 200 mL of cloudy urine so Geiger was replaced and started patient on broad-spectrum antibiotic after culture collected.
[2020-02-27 16:30] LABS: Hepatitis B Core Ab Total Nonreactive (Nonreactive)
[2020-02-27 18:30] LABS: Glucose Point of Care 116 (65-105)
[2020-02-27 21:00] VITALS: PULSE 65
[2020-02-27] MEDS: VITAMIN B COMPLEX CAPSULE 1 CAP PO (21:03)
[2020-02-27] MEDS: TAMSULOSIN HCL 0.4 MG CAPSULE PO (21:04)
[2020-02-27] MEDS: CEPHALEXIN 250 MG CAPSULE PO (21:07)
[2020-02-27 21:24] LABS: Glucose Point of Care 115 (65-105)
[2020-02-27 22:00] VITALS: BP 147/52; PULSE 66; RESP 18; TEMP 37.4; O2SAT 98
[2020-02-27] MEDS: CEFDINIR 300 MG CAPSULE PO (22:01)
[2020-02-28] VITALS (7 sets, daily range): BP systolic 130–151; BP diastolic 52–66; PULSE 63–76; RESP 18–20; TEMP 36.7–37.6; O2SAT 92–98
[2020-02-28] MEDS: BETAMETHASONE/CLOTRIMAZOLE CR 15 GM TUBE 1 APPLIC TOPICAL ×2 (08:53→20:49)
[2020-02-28] MEDS: HEPARIN SODIUM 5,000 UNITS/ML VIAL 5000 UNITS SUB-Q ×2 (08:56→20:48)
[2020-02-28 08:58] LABS: Glucose Point of Care 99 (65-105)
--- NOTE | 2020-02-28 10:06 | PCPTNOTE ---
Patient refused PT stating he was too tired. Patient encouraged to participate in PT to increase strength, endurance, and mobility. Patient continued to decline stating you can walk yourself on out the door.
[2020-02-28] MEDS: LORATADINE 10 MG TABLET PO (10:49)
[2020-02-28] MEDS: carvediloL 25 MG TABLET PO ×2 (10:49→20:48)
[2020-02-28] MEDS: DOCUSATE SODIUM 100 MG CAPSULE PO ×2 (10:50→20:48)
[2020-02-28] MEDS: hydrALAZINE HCL 25 MG TABLET PO ×3 (10:50→17:13)
[2020-02-28] MEDS: FINASTERIDE 5 MG TABLET PO (10:50)
[2020-02-28] MEDS: ATORVASTATIN 10 MG TABLET PO (10:50)
[2020-02-28] MEDS: FUROSEMIDE 80 MG TABLET PO ×2 (10:50→17:13)
[2020-02-28] MEDS: amLODIPine BESYLATE 5 MG TABLET PO (10:50)
[2020-02-28] MEDS: THERAPEUTIC MULTIVITAMINS/MINERALS TAB (*BKC) 1 TABLET PO (10:50)
[2020-02-28] MEDS: PANTOPRAZOLE 40 MG TABLET PO (10:50)
[2020-02-28 12:49] LABS: Glucose Point of Care 149 (65-105)
--- NOTE | 2020-02-28 13:05 | PM.IMPN ---
Progress Note: A&P Assessment and Plan (1) Acute respiratory failure with hypoxia: Code(s): J96.01 - Acute respiratory failure with hypoxia Status: Acute Assessment and Plan: Secondary to congestive heart failure. COVID test negative. He does have evidence of aspiration with thin liquids. Hypoxia could be related to dysphagia/aspiration as well. Wean O2 as tolerated. Tunnel cath placed 02/22 and now on HD. Diet adjusted. (2) Acute exacerbation of congestive heart failure: Code(s): I50.9 - Heart failure, unspecified Status: Acute Assessment and Plan: Echo here revealed EF of 55% with diastolic dysfunction Grade I and moderate to severe with moderate MR. BNP 32K. CXR showing pulmonary edema. Started on diuretics with IV Bumex and po Metolazone per nephrology. Cumulative output was -5.9L. Lungs sound better but still on O2 and CXR 02/22 looks worse. Continue Jamal hose. Started hemodialysis. Continue HD to control fluid status. Lasix resumed. (3) Chronic progressive renal failure, stage 4 (severe): Code(s): N18.4 - Chronic kidney disease, stage 4 (severe) Status: Chronic Assessment and Plan: Cr was in the mid-2 range in December. Creatinine 3.1 on admission and increased to 3.3 the next day. Cr running 3.3-3.6 range for many days but then 4.1-4.5 and climbing despite being off his diuretics (held 02/15). Renal sonogram showed no hydro but distended bladder and over 600 ml residual so cath placed. No change in Cr since Geiger placed so less likely from obstructive uropathy. Renal biopsy on hold due to no significant elevation of autoimmune markers. Patient also mildly confused which could be related to the azotemia. With continued evidence of fluid overload and uremia, he was started dialysis 02/22 and will continue outpatient dialysis Wednesday//Wednesday. (4) Aortic stenosis: Onset Date: ~12/2019 Code(s): I35.0 - Nonrheumatic aortic (valve) stenosis Status: Acute Assessment and Plan: Echo showng moderate to severe with 1 cm2 valve area. Further recommendations per cardiology. (5) Chronic anemia: Code(s): D64.9 - Anemia, unspecified Status: Acute Assessment and Plan: Patient with chronic anemia mostly in the 10-11 prior to admission. Hgb has dropped into the 9 range and stable. [place] anemia of chronic disease with iron deficiency component as well. He completed IV iron x 5 days. Continue to follow. (6) Hypertension: Code(s): I10 - Essential (primary) hypertension Status: Acute Assessment and Plan: Patient's blood pressure was reviewed on 02/27 Blood pressure well controlled. Will continue current medications with Norvasc, Coreg and Hydralazine. (7) Type 2 diabetes mellitus with peripheral neuropathy: Code(s): E11.42 - Type 2 diabetes mellitus with diabetic polyneuropathy Status: Acute Assessment and Plan: Last A1c 5.6 in June. The patient's blood glucose was reviewed on 02/27 Glucose remains reasonably well controlled and mostly under 180. Continue to monitor with AccuCheks covering with sliding scale. Hypoglycemia protocol available as needed. Continue current treatment plan. (8) Benign prostatic hyperplasia: Code(s): N40.0 - Benign prostatic hyperplasia without lower urinary tract symptoms Status: Acute Assessment and Plan: BPH with urine retention. Continue finasteride and tamsulosin. This was discussed with Dr Coelho and the patient will see him as outpt. Dr Coelho felt the patient could have Geiger trial here and will d/c geiger for voiding trial 02/23. WBC was elevated slightly and patient had incontinence. Straight catheterization revealed 200 mL of cloudy urine so Geiger was replaced and started patient on broad-spectrum antibiotic after culture collected. UCx growing Proteus. Continue oral abx. (9) Urinary tract infe
[2020-02-28] MEDS: GABAPENTIN 300 MG CAPSULE 600 MG PO ×2 (14:05→20:48)
--- NOTE | 2020-02-28 14:52 | P.PNNP_ITS ---
Progress Note: A&P Assessment and Plan (1) KENNY (acute kidney injury): Code(s): N17.9 - Acute kidney failure, unspecified Status: Acute Assessment and Plan: * is this really KENNY or is this just progression of his known CKD?? -- leaning towards the latter * creatinine has been gradually worsening over the last couple of weeks since admission * however, elevated ESR in association with nephrotic proteinuria is concerning * all serologies to date negative (SPE/UPE/REX/dsDNA-ab/hepatitis/ANCA) although C3 was slightly low - renal biopsy still a consideration but not urgent * now on renal replacement therapy/dialysis to better control volume status as well as provide clearance of uremic toxins * scheduled for HD today but due to several more urgent cases/patients, will hold off today and plan next treatment on Wednesday and then Wednesday (outpatient schedule will be T/T/S) * follow electrolytes, volume status, and clearance (2) Chronic progressive renal failure, stage 4 (severe): Code(s): N18.4 - Chronic kidney disease, stage 4 (severe) Status: Chronic Assessment and Plan: * baseline creatinine runs around 2.5 - 2.8mg/dl * due to diabetes, hypertension, cardiac + vavlular heart disease (systolic + diastolic heart failure along with aortic stenosis) (3) Acute exacerbation of congestive heart failure: Code(s): I50.9 - Heart failure, unspecified Status: Acute Assessment and Plan: * Cardiology to follow-up as outpatietn * planning for definitive treatment of his aortic valve as an outpatient (4) Hypertension: Code(s): I10 - Essential (primary) hypertension Status: Acute Assessment and Plan: * BP seems to be doing better * follow trend of hemodynamics (5) Anemia: Code(s): D64.9 - Anemia, unspecified Status: Acute Assessment and Plan: * due to iron deficiency and underlying CKD * on Epogen with HD * H/H improving (6) UTI (urinary tract infection): Code(s): N39.0 - Urinary tract infection, site not specified Status: Acute Assessment and Plan: * urine culture with Proteus mirabilis * on antibiotics * follow culture results (7) Diabetes: Code(s): E11.9 - Type 2 diabetes mellitus without complications Status: Chronic Assessment and Plan: * on acchecks * on SSI Will continue to follow Subjective Date/time seen: 02/28/20 14:52 Appears to be doing reasonably well at this time; no acute issues or problems to report -- denies chest pain or shortness of breath; no events overnight or earlier this AM; due for dialysis today; no apparent distress voiced on my visit with him today. Exam Narrative: Exam Narrative: General: WD/WN male in NAD Heart: normal S1 and S2; 3/6 systolic ejection murmur Lungs: clear anteriorly Abdomen: soft, nontender, nondistended, positive bowel sounds Extremities: no cyanosis or clubbing; trace edema Skin: no rash or nodules Objective Data Vital Signs Vital Signs: Vital Signs Temp Pulse Resp BP Pulse Ox 02/28/20 14:00 36.7 C 69 18 130/66 98 02/28/20 10:49 76 02/28/20 08:50 93 02/28/20 05:51 37.6 C H 63 18 151/52 H 92 02/27/20 22:00 37.4 C 66 18 147/52 H 98 02/27/20 21:00 65 Intake/Output Intake/Output: Intake & Output 02/25/2002/04
--- NOTE | 2020-02-28 14:52 | PM.PNNEP ---
Progress Note: A&P Assessment and Plan (1) KENNY (acute kidney injury): Code(s): N17.9 - Acute kidney failure, unspecified Status: Acute Assessment and Plan: is this really KENNY or is this just progression of his known CKD?? -- leaning towards the latter creatinine has been gradually worsening over the last couple of weeks since admission however, elevated ESR in association with nephrotic proteinuria is concerning all serologies to date negative (SPE/UPE/REX/dsDNA-ab/hepatitis/ANCA) although C3 was slightly low - renal biopsy still a consideration but not urgent now on renal replacement therapy/dialysis to better control volume status as well as provide clearance of uremic toxins scheduled for HD today but due to several more urgent cases/patients, will hold off today and plan next treatment on Wednesday and then Wednesday (outpatient schedule will be T/T/S) follow electrolytes, volume status, and clearance (2) Chronic progressive renal failure, stage 4 (severe): Code(s): N18.4 - Chronic kidney disease, stage 4 (severe) Status: Chronic Assessment and Plan: baseline creatinine runs around 2.5 - 2.8mg/dl due to diabetes, hypertension, cardiac + vavlular heart disease (systolic + diastolic heart failure along with aortic stenosis) (3) Acute exacerbation of congestive heart failure: Code(s): I50.9 - Heart failure, unspecified Status: Acute Assessment and Plan: Cardiology to follow-up as outpatietn planning for definitive treatment of his aortic valve as an outpatient (4) Hypertension: Code(s): I10 - Essential (primary) hypertension Status: Acute Assessment and Plan: BP seems to be doing better follow trend of hemodynamics (5) Anemia: Code(s): D64.9 - Anemia, unspecified Status: Acute Assessment and Plan: due to iron deficiency and underlying CKD on Epogen with HD H/H improving (6) UTI (urinary tract infection): Code(s): N39.0 - Urinary tract infection, site not specified Status: Acute Assessment and Plan: urine culture with Proteus mirabilis on antibiotics follow culture results (7) Diabetes: Code(s): E11.9 - Type 2 diabetes mellitus without complications Status: Chronic Assessment and Plan: on acchecks on SSI Will continue to follow Subjective Date/time seen: 02/28/20 14:52 Appears to be doing reasonably well at this time; no acute issues or problems to report -- denies chest pain or shortness of breath; no events overnight or earlier this AM; due for dialysis today; no apparent distress voiced on my visit with him today. Exam Narrative: Exam Narrative: General: WD/WN male in NAD Heart: normal S1 and S2; 3/6 systolic ejection murmur Lungs: clear anteriorly Abdomen: soft, nontender, nondistended, positive bowel sounds Extremities: no cyanosis or clubbing; trace edema Skin: no rash or nodules Objective Data Vital Signs Vital Signs: Vital Signs Temp Pulse Resp BP Pulse Ox 02/28/20 14:00 36.7 C 69 18 130/66 98 02/28/20 10:49 76 02/28/20 08:50 93 02/28/20 05:51 37.6 C H 63 18 151/52 H 92 02/27/20 22:00 37.4 C 66 18 147/52 H 98 02/27/20 21:00 65 Intake/Output Intake/Output: Intake & Output 02/25/20 02/26/20 02/27/20 02/28/20 23:59 23:59 23:59 23:59 Intake Total 820 640 320 480 Output Total 150 3100 1300 1000 Balance 670 -2460 -980 -520 Meds/Results Medications: Active Medications Generic Name Dose Route Start Last Admin Trade Name Freq PRN Reason Stop Dose Admin Acetaminophen 650 mg 02/06/20 20:27 02/24/20 04:07 Acetaminophen 325 Mg Tablet PO 650 mg Q12H PRN Administration Pain Amlodipine Besylate 5 mg 02/07/20 09:00 02/28/20 10:50 Amlodipine Besylate 5 Mg Tablet PO 5 mg DAILY TIRSO Administration Atorvastatin Calcium 10 mg 02/07/20 09:00 02/28/20 10:
[2020-02-28 17:11] LABS: Glucose Point of Care 107 (65-105)
[2020-02-28] MEDS: TAMSULOSIN HCL 0.4 MG CAPSULE PO (20:48)
[2020-02-28] MEDS: VITAMIN B COMPLEX CAPSULE 1 CAP PO (20:48)
[2020-02-28] MEDS: CEFDINIR 300 MG CAPSULE PO (20:48)
[2020-02-28 22:24] LABS: Glucose Point of Care 112 (65-105)
[2020-02-29] VITALS (8 sets, daily range): BP systolic 128–148; BP diastolic 64–86; PULSE 63–76; RESP 16–20; TEMP 36.3–36.8; O2SAT 93–95
[2020-02-29] MEDS: ACETAMINOPHEN 325 MG TABLET 650 MG PO ×2 (06:40→21:33)
[2020-02-29] MEDS: GABAPENTIN 300 MG CAPSULE 600 MG PO ×3 (06:40→21:31)
[2020-02-29 08:23] LABS: Glucose Point of Care 128 (65-105)
--- NOTE | 2020-02-29 08:30 | PM.PNCARD ---
Progress Note: A&P Assessment and Plan (1) End stage renal disease: Code(s): N18.6 - End stage renal disease Status: Acute Assessment and Plan: Hemodialysis T//Sat. Nephrology following. (2) Hypertension: Code(s): I10 - Essential (primary) hypertension Status: Acute Assessment and Plan: Stable. (3) Aortic stenosis: Onset Date: ~12/2019 Code(s): I35.0 - Nonrheumatic aortic (valve) stenosis Status: Acute Assessment and Plan: Stable with mod-severe aortic stenosis. No urgent need to replace aortic valve. (4) Diastolic heart failure: Code(s): I50.30 - Unspecified diastolic (congestive) heart failure Status: Acute Assessment and Plan: Due to worsening kidney function with diuretics and underlying DM, hypertension, patient began hemodialysis during this hospitalization. Subjective Date/time seen: 02/29/20 08:30 Patient does not appear to be comfortable lying in bed. He is oriented to name and place (that he is at [facility]) but could not give me the year. Denies chest pain or sob. Exam Const: General: cooperative, no acute distress, alert and awake; No comfortable Resp: Auscultation: clear to auscultation bilaterally, no crackles, no rales, no rhonchi and no wheezes Cardio: Jugular venous distension: no JVD Rate: regular rate Rhythm: regular rhythm Heart sounds: Murmur heart sound present (III/ systolic murmur RICS) Peripheral pulses: dorsalis pedis present GI: GI Palp: No abdominal tenderness and Yes Soft to palpation Neuro: General: oriented to person, oriented to place and oriented to time Extrem: Right lower extremity: no edema Left lower extremity: no edema Objective Data Vital Signs Vital Signs: Vital Signs - 24 hr 02/28/20 08:50 02/28/20 10:49 02/28/20 14:00 Temperature 98.1 F Pulse Rate 76 69 Respiratory Rate 18 Blood Pressure 130/66 Pulse Oximetry 93 98 02/28/20 20:48 02/28/20 21:25 02/28/20 21:56 Temperature 99.5 F Pulse Rate 67 68 Respiratory Rate 20 Blood Pressure 139/57 L Pulse Oximetry 96 96 02/29/20 05:34 Temperature 98.3 F Pulse Rate 70 Respiratory Rate 20 Blood Pressure 130/86 Pulse Oximetry 93 Intake/Output Intake/Output: Intake & Output 02/26/20 02/27/20 02/28/20 02/29/20 23:59 23:59 23:59 23:59 Intake Total 640 320 720 Output Total 3100 1300 1850 1300 [facility] -2460 -980 -1130 -1300 Meds/Results Medications: Active Medications Generic Name Dose Route Start Last Admin Trade Name Freq PRN Reason Stop Dose Admin Acetaminophen 650 mg 02/06/20 20:27 02/29/20 06:40 Acetaminophen 325 Mg Tablet PO 650 mg Q12H PRN Administration Pain Amlodipine Besylate 5 mg 02/07/20 09:00 02/28/20 10:50 Amlodipine Besylate 5 Mg Tablet PO 5 mg DAILY TIRSO Administration Atorvastatin Calcium 10 mg 02/07/20 09:00 02/28/20 10:50 Atorvastatin 10 Mg Tablet PO 10 mg DAILY TIRSO Administration Calcium Carbonate 500 mg 02/09/20 08:00 02/28/20 10:51 Calcium/Vitamin D 500 Mg Tablet PO 500 mg DAILY@0800 T[facility]SO Administration Carvedilol 25 mg 02/06/20 21:00 02/28/20 20:48 Carvedilol 25 Mg Tablet PO 25 mg Q12HR [facility]SO Administration Cefdinir 300 mg 02/27/20 21:00 02/28/20 20:48 Cefdinir 300 Mg Capsule PO 300 mg Q24H T[facility]SO Administration Clotrimazole 1 applic 02/22/20 21:00 02/28/20 20:49 Betamethasone/Clotrimazole Cr 15 Gm Tube TOPICAL 1 applic Q12HR [facility]SO Administration Dextrose 12.5 gm 02/06/20 21:23 Dextrose 50% 25 Gm/50 Ml Syringe IV PUSH PRN PRN Hypoglycemia Protocol Docusate Sodium 100 mg 02/06/20 21:00 02/28/20 20:48 Docusate Sodium 100 Mg Capsule PO 100 mg Q12HR TIRSO Administration Epoetin Jamal-epbx 10,000 units 02/23/20 15:30 02/26/20 10:04 Epoetin Jamal-Epbx 10,000 Units/Ml Vial IV PUSH 10,000 units MOWEFR [facility]SO Administration Finasteride 5 mg
[2020-02-29] MEDS: BETAMETHASONE/CLOTRIMAZOLE CR 15 GM TUBE 1 APPLIC TOPICAL ×2 (08:34→21:31)
[2020-02-29] MEDS: THERAPEUTIC MULTIVITAMINS/MINERALS TAB (*BKC) 1 TABLET PO (08:35)
[2020-02-29] MEDS: amLODIPine BESYLATE 5 MG TABLET PO (08:35)
[2020-02-29] MEDS: ATORVASTATIN 10 MG TABLET PO (08:35)
[2020-02-29] MEDS: hydrALAZINE HCL 25 MG TABLET PO ×3 (08:36→16:51)
[2020-02-29] MEDS: FUROSEMIDE 80 MG TABLET PO ×2 (08:36→16:52)
[2020-02-29] MEDS: LORATADINE 10 MG TABLET PO (08:37)
[2020-02-29] MEDS: FINASTERIDE 5 MG TABLET PO (08:37)
[2020-02-29] MEDS: carvediloL 25 MG TABLET PO ×2 (08:37→21:32)
[2020-02-29] MEDS: PANTOPRAZOLE 40 MG TABLET PO (08:38)
[2020-02-29] MEDS: HEPARIN SODIUM 5,000 UNITS/ML VIAL 5000 UNITS SUB-Q ×2 (08:40→21:31)
[2020-02-29] MEDS: DOCUSATE SODIUM 100 MG CAPSULE PO ×2 (08:40→21:31)
[2020-02-29 12:01] LABS: Glucose Point of Care 116 (65-105)
--- NOTE | 2020-02-29 16:04 | PM.IMPN ---
Progress Note: A&P Assessment and Plan (1) Confusion: Code(s): R41.0 - Disorientation, unspecified Status: Acute Assessment and Plan: Pateint confused today. Discussed with RN who states patient has been like this all day. Will check labs. He is already on abx for UTI. COnsider CT brain if labs okay. Lab work and ABG noted. Pulse ox normal so probably mixed venous. CXR showing improved findings. Could be sundowning. Will monitor. If persistent, check CT brain. (2) Acute respiratory failure with hypoxia: Code(s): J96.01 - Acute respiratory failure with hypoxia Status: Acute Assessment and Plan: Secondary to congestive heart failure. COVID test negative 02/14/20. He does have evidence of aspiration with thin liquids. Hypoxia could be related to dysphagia/aspiration as well. Wean O2 as tolerated. Tunnel cath placed 02/22 and now on HD. Diet adjusted. Wean O2 as tolerated. (3) Acute exacerbation of congestive heart failure: Code(s): I50.9 - Heart failure, unspecified Status: Acute Assessment and Plan: Echo here revealed EF of 55% with diastolic dysfunction Grade I and moderate to severe with moderate MR. BNP 32K. CXR showing pulmonary edema. Started on diuretics with IV Bumex and po Metolazone per nephrology. Cumulative output was -5.9L. Lungs sound better but still on O2 and CXR 02/22 looks worse. Continue Jamal hose. Started hemodialysis. Continue HD to control fluid status. Lasix resumed. Repeat CXR (4) Chronic progressive renal failure, stage 4 (severe): Code(s): N18.4 - Chronic kidney disease, stage 4 (severe) Status: Chronic Assessment and Plan: Cr was in the mid-2 range in December. Creatinine 3.1 on admission and increased to 3.3 the next day. Cr running 3.3-3.6 range for many days but then 4.1-4.5 and climbing despite being off his diuretics (held 02/15). Renal sonogram showed no hydro but distended bladder and over 600 ml residual so cath placed. No change in Cr since Ahuja placed so less likely from obstructive uropathy. Renal biopsy on hold due to no significant elevation of autoimmune markers. Patient also mildly confused which could be related to the azotemia. With continued evidence of fluid overload and uremia, he was started dialysis 02/22 and will continue outpatient dialysis Wednesday//Wednesday. (5) Aortic stenosis: Onset Date: ~12/2019 Code(s): I35.0 - Nonrheumatic aortic (valve) stenosis Status: Acute Assessment and Plan: Echo showng moderate to severe with 1 cm2 valve area. Further recommendations per cardiology. (6) Chronic anemia: Code(s): D64.9 - Anemia, unspecified Status: Acute Assessment and Plan: Patient with chronic anemia mostly in the 10-11 prior to admission. Hgb has dropped into the 9 range and stable. Annabella anemia of chronic disease with iron deficiency component as well. He completed IV iron x 5 days. Continue to follow periodically. (7) Hypertension: Code(s): I10 - Essential (primary) hypertension Status: Acute Assessment and Plan: Patient's blood pressure was reviewed on 02/28 Blood pressure well controlled. Will continue current medications with Norvasc, Coreg and Hydralazine. (8) Type 2 diabetes mellitus with peripheral neuropathy: Code(s): E11.42 - Type 2 diabetes mellitus with diabetic polyneuropathy Status: Acute Assessment and Plan: Last A1c 5.6 in June. The patient's blood glucose was reviewed on 02/28 Glucose remains well controlled and mostly under 180. Continue to monitor with AccuCheks covering with sliding scale. Hypoglycemia protocol available as needed. Continue current treatment plan. (9) Benign prostatic hyperplasia: Code(s): N40.0 - Benign prostatic hyperplasia without lower urinary tract symptoms Status: Acute Assessment and Plan: BPH with
[2020-02-29 16:32] LABS: Alveolar/Arterial O2 Gradient 101.4 mmHg; Fractional Inspired Oxygen 28 %; HCO3 ABG 28.3 mEq/l (22.0-26.0); Oxygen Content ABG 13.8 %vol (16.0-22.0); Oxyhemoglobin 84.7 % THb (90.0-100.0); PCO2 ABG 41.2 mmHg (35.0-45.0); PO2 FiO2 Ratio Arterial Blood 1.77 %; Total Hemoglobin 11.6 g/dL (12.0-18.0); pH ABG 7.454 (7.350-7.450)
[2020-02-29 16:33] LABS: Modified Allen's Test Pass; Oxygen Saturation ABG 86.9 % (95.0-100.0); PO2 ABG 49.6 mmHg (80.0-100.0); Site Drawn RIGHT RADIAL
[2020-02-29 16:34] LABS: Device NASAL CANNULA
--- NOTE | 2020-02-29 16:47 | P.PNNP_ITS ---
Progress Note: A&P Assessment and Plan (1) KENNY (acute kidney injury): Code(s): N17.9 - Acute kidney failure, unspecified Status: Acute Assessment and Plan: * is this really KENNY or is this just progression of his known CKD?? -- leaning towards the latter * creatinine has been gradually worsening over the last couple of weeks since admission * however, elevated ESR in association with nephrotic proteinuria is concerning * all serologies to date negative (SPE/UPE/REX/dsDNA-ab/hepatitis/ANCA) although C3 was slightly low - renal biopsy still a consideration but not urgent * now on renal replacement therapy/dialysis to better control volume status as well as provide clearance of uremic toxins * plan HD tomorrow and then Wednesday (outpatient schedule will be T/T/S) * follow electrolytes, volume status, and clearance (2) Chronic progressive renal failure, stage 4 (severe): Code(s): N18.4 - Chronic kidney disease, stage 4 (severe) Status: Chronic Assessment and Plan: * baseline creatinine runs around 2.5 - 2.8mg/dl * due to diabetes, hypertension, cardiac + vavlular heart disease (systolic + diastolic heart failure along with aortic stenosis) (3) Confusion: Code(s): R41.0 - Disorientation, unspecified Status: Acute Assessment and Plan: * etiology unclear * ABG and ammonia test results noted * Check CT of brain(?) * already on antibiotics for UTI * due to uremia (did not get HD yesterday)?? * follow trend (4) Acute exacerbation of congestive heart failure: Code(s): I50.9 - Heart failure, unspecified Status: Acute Assessment and Plan: * Cardiology following * stable if not improving * no urgency for valve replacement at this time (5) Hypertension: Code(s): I10 - Essential (primary) hypertension Status: Acute Assessment and Plan: * BP seems to be doing better * follow trend of hemodynamics (6) Anemia: Code(s): D64.9 - Anemia, unspecified Status: Acute Assessment and Plan: * due to iron deficiency and underlying CKD * on Epogen with HD * H/H improving (7) UTI (urinary tract infection): Code(s): N39.0 - Urinary tract infection, site not specified Status: Acute Assessment and Plan: * urine culture with Proteus mirabilis * on antibiotics * follow culture results (8) Diabetes: Code(s): E11.9 - Type 2 diabetes mellitus without complications Status: Chronic Assessment and Plan: * on acchecks * on SSI Will continue to follow Subjective Date/time seen: 02/29/20 16:48 Unable to received dialysis yesterday due to more urgent/emergent treatments on other patients; no apparent distress noted but he seems a bit confused in comparison to yesterday; ABG/ammonia noted; CXR ordered; no acute events overnight or earlier this AM Exam Narrative: Exam Narrative: General: WD/WN male in NAD Heart: normal S1 and S2; 3/6 systolic ejection murmur Lungs: clear anteriorly Abdomen: soft, nontender, nondistended, positive bowel sounds Extremities: no cyanosis or clubbing; trace edema Skin: no rash or nodules Objective Data Vital Signs Vital Signs: Vital Signs Temp Pulse Resp BP Pulse Ox 02/29/20 16:47 94 02/29/20 14:00 36.3 C L 63 16 128/67 93 02/29/20 08:40 70 18 93 02/29/20 08:37 72 1
--- NOTE | 2020-02-29 16:47 | PM.PNNEP ---
Progress Note: A&P Assessment and Plan (1) KENNY (acute kidney injury): Code(s): N17.9 - Acute kidney failure, unspecified Status: Acute Assessment and Plan: is this really KENNY or is this just progression of his known CKD?? -- leaning towards the latter creatinine has been gradually worsening over the last couple of weeks since admission however, elevated ESR in association with nephrotic proteinuria is concerning all serologies to date negative (SPE/UPE/REX/dsDNA-ab/hepatitis/ANCA) although C3 was slightly low - renal biopsy still a consideration but not urgent now on renal replacement therapy/dialysis to better control volume status as well as provide clearance of uremic toxins plan HD tomorrow and then Wednesday (outpatient schedule will be T/T/S) follow electrolytes, volume status, and clearance (2) Chronic progressive renal failure, stage 4 (severe): Code(s): N18.4 - Chronic kidney disease, stage 4 (severe) Status: Chronic Assessment and Plan: baseline creatinine runs around 2.5 - 2.8mg/dl due to diabetes, hypertension, cardiac + vavlular heart disease (systolic + diastolic heart failure along with aortic stenosis) (3) Confusion: Code(s): R41.0 - Disorientation, unspecified Status: Acute Assessment and Plan: etiology unclear ABG and ammonia test results noted Check CT of brain(?) already on antibiotics for UTI due to uremia (did not get HD yesterday)?? follow trend (4) Acute exacerbation of congestive heart failure: Code(s): I50.9 - Heart failure, unspecified Status: Acute Assessment and Plan: Cardiology following stable if not improving no urgency for valve replacement at this time (5) Hypertension: Code(s): I10 - Essential (primary) hypertension Status: Acute Assessment and Plan: BP seems to be doing better follow trend of hemodynamics (6) Anemia: Code(s): D64.9 - Anemia, unspecified Status: Acute Assessment and Plan: due to iron deficiency and underlying CKD on Epogen with HD H/H improving (7) UTI (urinary tract infection): Code(s): N39.0 - Urinary tract infection, site not specified Status: Acute Assessment and Plan: urine culture with Proteus mirabilis on antibiotics follow culture results (8) Diabetes: Code(s): E11.9 - Type 2 diabetes mellitus without complications Status: Chronic Assessment and Plan: on acchecks on SSI Will continue to follow Subjective Date/time seen: 02/29/20 16:48 Unable to received dialysis yesterday due to more urgent/emergent treatments on other patients; no apparent distress noted but he seems a bit confused in comparison to yesterday; ABG/ammonia noted; CXR ordered; no acute events overnight or earlier this AM Exam Narrative: Exam Narrative: General: WD/WN male in NAD Heart: normal S1 and S2; 3/6 systolic ejection murmur Lungs: clear anteriorly Abdomen: soft, nontender, nondistended, positive bowel sounds Extremities: no cyanosis or clubbing; trace edema Skin: no rash or nodules Objective Data Vital Signs Vital Signs: Vital Signs Temp Pulse Resp BP Pulse Ox 02/29/20 16:47 94 02/29/20 14:00 36.3 C L 63 16 128/67 93 02/29/20 08:40 70 18 93 02/29/20 08:37 72 02/29/20 05:34 36.8 C 70 20 130/86 93 02/28/20 21:56 37.5 C 68 20 139/57 L 96 02/28/20 21:25 96 02/28/20 20:48 67 Intake/Output Intake/Output: Intake & Output 02/26/20 02/27/20 02/28/20 02/29/20 23:59 23:59 23:59 23:59 Intake Total 640 320 720 Output Total 3100 1300 1850 1300 Balance -2460 -980 -1130 -1300 Meds/Results Medications: Active Medications Generic Name Dose Route Start Last Admin Trade Name Viviane PRN Reason Stop Dose Admin Acetaminophen 650 mg 02/06/20 20:27 02/29/20 06:40 Acetaminophen 325 Mg Tablet PO 650 mg
[2020-02-29 16:48] LABS: Ammonia < 9 umol/L (9-30)
[2020-02-29 17:00] LABS: Mean Corpuscular HGB Conc 32.4 g/dl (32-36); Mean Corpuscular Hemoglobin 32.1 pg (26-34); Mean Corpuscular Volume 99.1 fl (80-100); Mean Platelet Volume 11.1 fl (7.4-10.4); Platelet Count Result 117 k/mm3 (150-375); Red Blood Count 3.43 M/mm3 (4.6-6.20); Red Cell Distribution Width 15.7 % (11.5-14.5); White Blood Count 3.8 K/mm3 (4.5-10.0)
[2020-02-29 17:20] LABS: Anisocytosis 2+ (NORMAL); Band Neutrophils Percent 4 % (0-6); Lymphocytes Absolute Manual 0.83 K/mm3 (1.1-4.5); Monocytes Absolute Manual 0.72 K/mm3 (0.1-0.90); Monocytes Percent Manual 19 % (3-9); Neutrophils Absolute Manual 2.24 K/mm3 (1.3-6.7); Neutrophils Percent Manual 55 % (46-73); Platelet Estimate Decreased (Adequate); Total Cells Counted 100
[2020-02-29 17:37] LABS: Glucose Point of Care 142 (65-105)
[2020-02-29 17:44] LABS: Alanine Aminotransferase 26 U/L (4-50); Albumin Level 3.2 g/dL (3.5-5.1); Alkaline Phosphatase 49 U/L (38-126); Anion Gap 9 mmol/L (8-16); Aspartate Amino Transferase 47 U/L (17-59); Bilirubin,Total 0.6 mg/dL (0.2-1.3); Blood Urea Nitrogen 61 mg/dL (9-20); Calcium 8.9 mg/dL (8.4-10.2); Carbon Dioxide 32 mmol/L (22-30); Chloride 102 mmol/L (98-107); Estimated CRCL calculation 15 ml/min; Estimated Glomerular Filt Rate 14; Glucose 116 mg/dL (75-110); Sodium 143 mmol/L (137-145)
[2020-02-29] MEDS: CEFDINIR 300 MG CAPSULE PO (21:31)
[2020-02-29] MEDS: VITAMIN B COMPLEX CAPSULE 1 CAP PO (21:31)
[2020-02-29] MEDS: TAMSULOSIN HCL 0.4 MG CAPSULE PO (21:32)
[2020-03-01] VITALS (19 sets, daily range): BP systolic 112–154; BP diastolic 51–75; PULSE 54–79; RESP 16–20; TEMP 36–37.6; O2SAT 91–93
[2020-03-01 03:23] LABS: Glucose Point of Care 111 (65-105)
[2020-03-01] MEDS: GABAPENTIN 300 MG CAPSULE 600 MG PO ×3 (06:02→20:14)
[2020-03-01 07:46] LABS: Glucose Point of Care 120 (65-105)
[2020-03-01] MEDS: hydrALAZINE HCL 25 MG TABLET PO ×3 (08:10→17:14)
[2020-03-01] MEDS: amLODIPine BESYLATE 5 MG TABLET PO (08:10)
[2020-03-01] MEDS: carvediloL 25 MG TABLET PO ×2 (08:10→20:14)
[2020-03-01] MEDS: FUROSEMIDE 80 MG TABLET PO ×2 (08:10→17:13)
--- NOTE | 2020-03-01 08:10 | PCPTNOTE ---
Patient refused treatment this session. Attempted to see patient this A.M. , however patient oriented to name only and refused to participate in PT. Patient moaning and stating Oh God! several times while moving his legs in bed, but denied having pain. PT will continue to follow per plan of care.
[2020-03-01] MEDS: PANTOPRAZOLE 40 MG TABLET PO (08:11)
[2020-03-01] MEDS: THERAPEUTIC MULTIVITAMINS/MINERALS TAB (*BKC) 1 TABLET PO (08:11)
[2020-03-01] MEDS: FINASTERIDE 5 MG TABLET PO (08:11)
[2020-03-01] MEDS: LORATADINE 10 MG TABLET PO (08:11)
[2020-03-01] MEDS: BETAMETHASONE/CLOTRIMAZOLE CR 15 GM TUBE 1 APPLIC TOPICAL ×2 (08:12→20:14)
[2020-03-01] MEDS: ATORVASTATIN 10 MG TABLET PO (08:12)
[2020-03-01] MEDS: HEPARIN SODIUM 5,000 UNITS/ML VIAL 5000 UNITS SUB-Q ×2 (08:14→20:13)
[2020-03-01] MEDS: DOCUSATE SODIUM 100 MG CAPSULE PO ×2 (08:14→20:30)
--- NOTE | 2020-03-01 08:51 | PM.PNCARD ---
Progress Note: A&P Assessment and Plan (1) End stage renal disease: Code(s): N18.6 - End stage renal disease Status: Acute Assessment and Plan: Hemodialysis T//Sat. Nephrology following. (2) Hypertension: Code(s): I10 - Essential (primary) hypertension Status: Acute Assessment and Plan: Stable. (3) Aortic stenosis: Onset Date: ~12/2019 Code(s): I35.0 - Nonrheumatic aortic (valve) stenosis Status: Acute Assessment and Plan: Stable with mod-severe aortic stenosis. No urgent need to replace aortic valve. (4) Diastolic heart failure: Code(s): I50.30 - Unspecified diastolic (congestive) heart failure Status: Acute Assessment and Plan: Acute on chronic. Stable. Due to worsening kidney function with diuretics and underlying DM, hypertension, patient began hemodialysis during this hospitalization. If discharge from hospital, f/u with me in next 3-4 weeks. Subjective Date/time seen: 03/01/20 08:51 He appears more comfortable today. He is oriented to name and place, but not year. Denies chest pain or sob or pain. Exam Const: General: cooperative, no acute distress, alert and awake; No comfortable Resp: Auscultation: clear to auscultation bilaterally, no crackles, no rales, no rhonchi and no wheezes Cardio: Jugular venous distension: no JVD Rate: regular rate Rhythm: regular rhythm Heart sounds: Murmur heart sound present (III/ systolic murmur RICS) Peripheral pulses: dorsalis pedis present GI: GI Palp: No abdominal tenderness and Yes Soft to palpation Neuro: General: oriented to person, oriented to place and oriented to time Extrem: Right lower extremity: no edema Left lower extremity: no edema Objective Data Vital Signs Vital Signs: Vital Signs - 24 hr 02/29/20 14:00 02/29/20 16:47 02/29/20 19:35 Temperature 97.3 F L Pulse Rate 63 Respiratory Rate 16 18 Blood Pressure 128/67 Pulse Oximetry 93 94 95 02/29/20 21:32 02/29/20 22:00 03/01/20 06:00 Temperature 98.2 F 97.5 F L Pulse Rate 76 70 62 Respiratory Rate 18 20 Blood Pressure 148/64 H 146/51 H Pulse Oximetry 95 91 03/01/20 08:10 Temperature Pulse Rate 62 Respiratory Rate Blood Pressure Pulse Oximetry Intake/Output Intake/Output: Intake & Output 02/27/20 02/28/20 02/29/20 03/01/20 23:59 23:59 23:59 23:59 Intake Total 320 720 210 Output Total 1300 1850 2100 1100 Balance -980 -1130 -2100 -890 Meds/Results Medications: Active Medications Generic Name Dose Route Start Last Admin Trade Name Freq PRN Reason Stop Dose Admin Acetaminophen 650 mg 02/06/20 20:27 02/29/20 21:33 Acetaminophen 325 Mg Tablet PO 650 mg Q12H PRN Administration Pain Amlodipine Besylate 5 mg 02/07/20 09:00 03/01/20 08:10 Amlodipine Besylate 5 Mg Tablet PO 5 mg DAILY TIRSO Administration Atorvastatin Calcium 10 mg 02/07/20 09:00 03/01/20 08:12 Atorvastatin 10 Mg Tablet PO 10 mg DAILY TIRSO Administration Calcium Carbonate 500 mg 02/09/20 08:00 03/01/20 08:12 Calcium/Vitamin D 500 Mg Tablet PO 500 mg DAILY@0800 T[facility]SO Administration Carvedilol 25 mg 02/06/20 21:00 03/01/20 08:10 Carvedilol 25 Mg Tablet PO 25 mg Q12HR [facility]SO Administration Cefdinir 300 mg 02/27/20 21:00 02/29/20 21:31 Cefdinir 300 Mg Capsule PO 300 mg Q24H [facility]IRSO Administration Clotrimazole 1 applic 02/22/20 21:00 03/01/20 08:12 Betamethasone/Clotrimazole Cr 15 Gm Tube TOPICAL 1 applic Q12HR [facility] Administration Dextrose 12.5 gm 02/06/20 21:23 Dextrose 50% 25 Gm/50 Ml Syringe IV PUSH PRN PRN Hypoglycemia Protocol Docusate Sodium 100 mg 02/06/20 21:00 03/01/20 08:14 Docusate Sodium 100 Mg Capsule PO 100 mg Q12HR [facility] Administration Epoetin Jamal-epbx 10,000 units 02/23/20 15:30 02/26/20 10:04 Epoetin Jamal-Epbx 10,000 Units/Ml Vial IV PUSH 10,000 units MOWEFR [facility] Administrat
--- NOTE | 2020-03-01 09:49 | PCOTNOTE ---
Attempted to see patient this am, however patient declined stating, No, I don't feel like it. I don't feel good.
[2020-03-01] MEDS: EPOETIN ALFA-EPBX 10,000 UNITS/ML VIAL 10000 UNITS IV PUSH (11:45)
--- NOTE | 2020-03-01 12:27 | P.PNNP_ITS ---
Progress Note: A&P Assessment and Plan (1) KENNY (acute kidney injury): Code(s): N17.9 - Acute kidney failure, unspecified Status: Acute Assessment and Plan: * is this really KENNY or is this just progression of his known CKD?? -- leaning towards the latter * creatinine has been gradually worsening over the last couple of weeks since admission associated with confusion (early uremia?) * however, elevated ESR in association with nephrotic proteinuria is concerning * all serologies to date negative (SPE/UPE/REX/dsDNA-ab/hepatitis/ANCA) although C3 was slightly low - renal biopsy still a consideration but not urgent * now on renal replacement therapy/dialysis to better control volume status as well as provide clearance of uremic toxins * plan HD today and then Wednesday (since outpatient schedule will be T/T/S) * follow electrolytes, volume status, and clearance (2) Chronic progressive renal failure, stage 4 (severe): Code(s): N18.4 - Chronic kidney disease, stage 4 (severe) Status: Chronic Assessment and Plan: * baseline creatinine runs around 2.5 - 2.8mg/dl * due to diabetes, hypertension, cardiac + vavlular heart disease (systolic + diastolic heart failure along with aortic stenosis) (3) Confusion: Code(s): R41.0 - Disorientation, unspecified Status: Acute Assessment and Plan: * etiology unclear * ABG and ammonia test results noted * Check CT of brain(?) * already on antibiotics for UTI * due to uremia (since did did not get HD on Wednesday??) * follow trend (4) Acute exacerbation of congestive heart failure: Code(s): I50.9 - Heart failure, unspecified Status: Acute Assessment and Plan: * Cardiology following * stable if not improving with diuretics and dialysis * no urgency for valve replacement at this time (5) Hypertension: Code(s): I10 - Essential (primary) hypertension Status: Acute Assessment and Plan: * BP seems to be doing better * follow trend of hemodynamics (6) Anemia: Code(s): D64.9 - Anemia, unspecified Status: Acute Assessment and Plan: * due to iron deficiency and underlying CKD * on Epogen with HD * H/H improving (7) UTI (urinary tract infection): Code(s): N39.0 - Urinary tract infection, site not specified Status: Acute Assessment and Plan: * urine culture with Proteus mirabilis * on antibiotics * follow culture results (8) Diabetes: Code(s): E11.9 - Type 2 diabetes mellitus without complications Status: Chronic Assessment and Plan: * on acchecks * on SSI Will continue to follow Subjective Date/time seen: 03/01/20 12:27 Patient tolerating hemodialysis treatment at the time of my visit (seen on HD at ~ 12:12PM); still with mild confusion; no events overnight or earlier this AM; no apparent distress. Objective Data Vital Signs Vital Signs: Vital Signs Temp Pulse Resp BP Pulse Ox 03/01/20 11:45 64 126/61 03/01/20 11:30 63 139/67 03/01/20 11:15 69 146/75 H 03/01/20 11:10 66 148/57 H 03/01/20 11:00 37.6 C 71 16 154/69 H 03/01/20 08:10 62 03/01/20 08:00 91 03/01/20 06:00 36.4 C L 62 20 146/51 H 91 02/29/20 22:00 36.8 C 70 18 148/64 H 95 02/29/20 21:32 76 02/29/20 19:35 18 95 02/29/20 16:47
--- NOTE | 2020-03-01 12:27 | PM.PNNEP ---
Progress Note: A&P Assessment and Plan (1) KENNY (acute kidney injury): Code(s): N17.9 - Acute kidney failure, unspecified Status: Acute Assessment and Plan: is this really KENNY or is this just progression of his known CKD?? -- leaning towards the latter creatinine has been gradually worsening over the last couple of weeks since admission associated with confusion (early uremia?) however, elevated ESR in association with nephrotic proteinuria is concerning all serologies to date negative (SPE/UPE/REX/dsDNA-ab/hepatitis/ANCA) although C3 was slightly low - renal biopsy still a consideration but not urgent now on renal replacement therapy/dialysis to better control volume status as well as provide clearance of uremic toxins plan HD today and then Wednesday (since outpatient schedule will be T/T/S) follow electrolytes, volume status, and clearance (2) Chronic progressive renal failure, stage 4 (severe): Code(s): N18.4 - Chronic kidney disease, stage 4 (severe) Status: Chronic Assessment and Plan: baseline creatinine runs around 2.5 - 2.8mg/dl due to diabetes, hypertension, cardiac + vavlular heart disease (systolic + diastolic heart failure along with aortic stenosis) (3) Confusion: Code(s): R41.0 - Disorientation, unspecified Status: Acute Assessment and Plan: etiology unclear ABG and ammonia test results noted Check CT of brain(?) already on antibiotics for UTI due to uremia (since did did not get HD on Wednesday??) follow trend (4) Acute exacerbation of congestive heart failure: Code(s): I50.9 - Heart failure, unspecified Status: Acute Assessment and Plan: Cardiology following stable if not improving with diuretics and dialysis no urgency for valve replacement at this time (5) Hypertension: Code(s): I10 - Essential (primary) hypertension Status: Acute Assessment and Plan: BP seems to be doing better follow trend of hemodynamics (6) Anemia: Code(s): D64.9 - Anemia, unspecified Status: Acute Assessment and Plan: due to iron deficiency and underlying CKD on Epogen with HD H/H improving (7) UTI (urinary tract infection): Code(s): N39.0 - Urinary tract infection, site not specified Status: Acute Assessment and Plan: urine culture with Proteus mirabilis on antibiotics follow culture results (8) Diabetes: Code(s): E11.9 - Type 2 diabetes mellitus without complications Status: Chronic Assessment and Plan: on acchecks on SSI Will continue to follow Subjective Date/time seen: 03/01/20 12:27 Patient tolerating hemodialysis treatment at the time of my visit (seen on HD at ~ 12:12PM); still with mild confusion; no events overnight or earlier this AM; no apparent distress. Objective Data Vital Signs Vital Signs: Vital Signs Temp Pulse Resp BP Pulse Ox 03/01/20 11:45 64 126/61 03/01/20 11:30 63 139/67 03/01/20 11:15 69 146/75 H 03/01/20 11:10 66 148/57 H 03/01/20 11:00 37.6 C 71 16 154/69 H 03/01/20 08:10 62 03/01/20 08:00 91 03/01/20 06:00 36.4 C L 62 20 146/51 H 91 02/29/20 22:00 36.8 C 70 18 148/64 H 95 02/29/20 21:32 76 02/29/20 19:35 18 95 02/29/20 16:47 94 02/29/20 14:00 36.3 C L 63 16 128/67 93 Intake/Output Intake/Output: Intake & Output 02/27/20 02/28/20 02/29/20 03/01/20 23:59 23:59 23:59 23:59 Intake Total 320 720 210 Output Total 1300 1850 2100 1100 Balance -980 -1130 -2100 -890 Meds/Results Medications: Active Medications Generic Name Dose Route Start Last Admin Trade Name Freq PRN Reason Stop Dose Admin Acetaminophen 650 mg 02/06/20 20:27 02/29/20 21:33 Acetaminophen 325 Mg Tablet PO 650 mg Q12H PRN Administration Pain Amlodipine Besylate 5 mg 02/07/20 09:00 03/01/20 08:10 Amlod
--- NOTE | 2020-03-01 13:08 | PM.IMPN ---
Progress Note: A&P Assessment and Plan (1) Confusion: Code(s): R41.0 - Disorientation, unspecified Status: Acute Assessment and Plan: Pateint confused yesterday. Discussed with RN who states patient has been like this all day. Labs, ABG and CXR okay. Still confused this morning and CT brain ordered but this also showing no acute changes. Suspect related to needing HD. Continue to monitor. Discussed with dtr today. Called by RN later and informed patient is COVID positive. Will add Decadron. No Remdesivir since ESRD. CXR reviewed from yesterday. (2) Acute respiratory failure with hypoxia: Code(s): J96.01 - Acute respiratory failure with hypoxia Status: Acute Assessment and Plan: Secondary to congestive heart failure. COVID test negative 02/14/20. He does have evidence of aspiration with thin liquids. Hypoxia could be related to dysphagia/aspiration as well. Wean O2 as tolerated. Tunnel cath placed 02/22 and now on HD. Diet adjusted. Wean O2 as tolerated. (3) Acute exacerbation of congestive heart failure: Code(s): I50.9 - Heart failure, unspecified Status: Acute Assessment and Plan: Echo here revealed EF of 55% with diastolic dysfunction Grade I and moderate to severe with moderate MR. BNP 32K. CXR showing pulmonary edema. Started on diuretics with IV Bumex and po Metolazone per nephrology. Cumulative output was -5.9L. Clinically better and CXR 02/28 looks bettre. Continue Jamal hose. Started hemodialysis. Continue HD to control fluid status. Lasix resumed. (4) Chronic progressive renal failure, stage 4 (severe): Code(s): N18.4 - Chronic kidney disease, stage 4 (severe) Status: Chronic Assessment and Plan: Cr was in the mid-2 range in December. Creatinine 3.1 on admission and increased to 3.3 the next day. Cr running 3.3-3.6 range for many days but then 4.1-4.5 and climbing despite being off his diuretics (held 02/15). Renal sonogram showed no hydro but distended bladder and over 600 ml residual so cath placed. No change in Cr since Ahuja placed so less likely from obstructive uropathy. Renal biopsy on hold due to no significant elevation of autoimmune markers. Patient also mildly confused which could be related to the azotemia. With continued evidence of fluid overload and uremia, he was started dialysis 02/22 and will continue outpatient dialysis Wednesday//Wednesday. (5) Aortic stenosis: Onset Date: ~12/2019 Code(s): I35.0 - Nonrheumatic aortic (valve) stenosis Status: Acute Assessment and Plan: Echo showng moderate to severe with 1 cm2 valve area. Further recommendations per cardiology. (6) Chronic anemia: Code(s): D64.9 - Anemia, unspecified Status: Acute Assessment and Plan: Patient with chronic anemia mostly in the 10-11 prior to admission. Hgb had dropped into the 9 range but 11 now. [place] anemia of chronic disease with iron deficiency component as well. He completed IV iron x 5 days. Continue to follow periodically. (7) Hypertension: Code(s): I10 - Essential (primary) hypertension Status: Acute Assessment and Plan: Patient's blood pressure was reviewed on 03/01 Blood pressure well controlled. Will continue current medications with Norvasc, Coreg and Hydralazine. (8) Type 2 diabetes mellitus with peripheral neuropathy: Code(s): E11.42 - Type 2 diabetes mellitus with diabetic polyneuropathy Status: Acute Assessment and Plan: Last A1c 5.6 in June. The patient's blood glucose was reviewed on 03/01 Glucose remains well controlled. Continue to monitor with AccuCheks covering with sliding scale. Hypoglycemia protocol available as needed. Continue current treatment plan. (9) Benign prostatic hyperplasia: Code(s): N40.0 - Benign prostatic hyperplasia without lower urinary tract symptoms Status
[2020-03-01 17:04] LABS: SARS-CoV-2 RNA PCR Positive
[2020-03-01 17:05] LABS: Glucose Point of Care 105 (65-105)
[2020-03-01] MEDS: CEFDINIR 300 MG CAPSULE PO (20:14)
[2020-03-01] MEDS: TAMSULOSIN HCL 0.4 MG CAPSULE PO (20:14)
[2020-03-01] MEDS: VITAMIN B COMPLEX CAPSULE 1 CAP PO (20:14)
[2020-03-01 20:50] LABS: Erythropoietin (EPO) 28.7 mIU/mL (2.6-18.5)
[2020-03-02] VITALS (26 sets, daily range): BP systolic 88–146; BP diastolic 44–75; PULSE 48–78; RESP 18–20; TEMP 36–36.8; O2SAT 90–97
[2020-03-02 06:28] LABS: Hematocrit 34.5 % (42.0-52.0); Hemoglobin 11.3 g/dL (14.0-18.0); Mean Corpuscular HGB Conc 32.8 g/dl (32-36); Mean Corpuscular Hemoglobin 32.5 pg (26-34); Mean Corpuscular Volume 99.1 fl (80-100); Mean Platelet Volume 11.4 fl (7.4-10.4); Platelet Count Result 108 k/mm3 (150-375); Red Blood Count 3.48 M/mm3 (4.6-6.20); Red Cell Distribution Width 15.5 % (11.5-14.5); White Blood Count 3.7 K/mm3 (4.5-10.0)
[2020-03-02] MEDS: GABAPENTIN 300 MG CAPSULE 600 MG PO ×3 (06:46→20:58)
[2020-03-02 06:55] LABS: Alanine Aminotransferase 23 U/L (4-50); Albumin Level 3.1 g/dL (3.5-5.1); Alkaline Phosphatase 46 U/L (38-126); Anion Gap 9 mmol/L (8-16); Aspartate Amino Transferase 49 U/L (17-59); Bilirubin,Total 0.6 mg/dL (0.2-1.3); Blood Urea Nitrogen 53 mg/dL (9-20); CRP 7.1 mg/dL (<1.0); Calcium 8.7 mg/dL (8.4-10.2); Carbon Dioxide 27 mmol/L (22-30); Chloride 106 mmol/L (98-107); Estimated CRCL calculation 13 ml/min; Estimated Glomerular Filt Rate 15; Glucose 101 mg/dL (75-110); Lactate Dehydrogenase 706 U/L (313-618); Potassium 3.6 mmol/L (3.4-5.0); Sodium 142 mmol/L (137-145)
[2020-03-02 08:11] LABS: Glucose Point of Care 118 (65-105)
[2020-03-02] MEDS: ACETAMINOPHEN 325 MG TABLET 650 MG PO (08:32)
[2020-03-02] MEDS: FINASTERIDE 5 MG TABLET PO (08:33)
[2020-03-02] MEDS: ATORVASTATIN 10 MG TABLET PO (08:33)
[2020-03-02] MEDS: THERAPEUTIC MULTIVITAMINS/MINERALS TAB (*BKC) 1 TABLET PO (08:33)
[2020-03-02] MEDS: PANTOPRAZOLE 40 MG TABLET PO (08:33)
[2020-03-02] MEDS: FUROSEMIDE 80 MG TABLET PO ×2 (08:33→17:34)
[2020-03-02] MEDS: LORATADINE 10 MG TABLET PO (08:33)
[2020-03-02] MEDS: carvediloL 25 MG TABLET PO ×2 (08:33→20:56)
[2020-03-02] MEDS: hydrALAZINE HCL 25 MG TABLET PO (08:33)
[2020-03-02] MEDS: amLODIPine BESYLATE 5 MG TABLET PO (08:34)
[2020-03-02] MEDS: DEXAMETHASONE 2 MG TABLET 6 MG PO (08:35)
[2020-03-02] MEDS: BETAMETHASONE/CLOTRIMAZOLE CR 15 GM TUBE 1 APPLIC TOPICAL ×2 (08:36→20:58)
[2020-03-02] MEDS: DOCUSATE SODIUM 100 MG CAPSULE PO ×2 (08:49→20:56)
[2020-03-02] MEDS: HEPARIN SODIUM 5,000 UNITS/ML VIAL 5000 UNITS SUB-Q ×2 (08:49→20:51)
--- NOTE | 2020-03-02 11:30 | P.PNNP_ITS ---
Progress Note: A&P Assessment and Plan (1) KENNY (acute kidney injury): Code(s): N17.9 - Acute kidney failure, unspecified Status: Acute Assessment and Plan: * is this really KENNY or is this just progression of his known CKD?? -- leaning towards the latter * The patient has been on dialysis for about a week * His creatinine and his BUN are better. * His fluid status looks better. * He is only on 3L of oxygen. * creatinine has been gradually worsening over the last couple of weeks since admission associated with confusion (early uremia?) * however, elevated ESR in association with nephrotic proteinuria is concerning * all serologies to date negative (SPE/UPE/REX/dsDNA-ab/hepatitis/ANCA) although C3 was slightly low - renal biopsy still a consideration but not urgent Today the patient had dialysis but they were unable unable to start because his blood pressure was so low. He did receive 3 antihypertensives right before the treatment. I asked the nurse to wait a couple of hours to let these wear off so we can get his treatment done today. Hospitalist is considering discharge to the senior care today. (2) Chronic progressive renal failure, stage 4 (severe): Code(s): N18.4 - Chronic kidney disease, stage 4 (severe) Status: Chronic Assessment and Plan: * baseline creatinine runs around 2.5 - 2.8mg/dl * due to diabetes, hypertension, cardiac + vavlular heart disease (systolic + diastolic heart failure along with aortic stenosis) (3) Confusion: Code(s): R41.0 - Disorientation, unspecified Status: Acute Assessment and Plan: * Seems to have improved a little bit. (4) Acute exacerbation of congestive heart failure: Code(s): I50.9 - Heart failure, unspecified Status: Acute Assessment and Plan: * Cardiology following * Will control the fluid status with dialysis if his blood pressure will permit. (5) Hypertension: Code(s): I10 - Essential (primary) hypertension Status: Acute Assessment and Plan: * BP seems to be doing better * I think we need less medication. Because of the aortic stenosis we do not want his blood pressure to be too low. (6) Anemia: Code(s): D64.9 - Anemia, unspecified Status: Acute Assessment and Plan: * due to iron deficiency and underlying CKD * on Epogen with HD * H/H improving (7) UTI (urinary tract infection): Code(s): N39.0 - Urinary tract infection, site not specified Status: Acute Assessment and Plan: * urine culture with Proteus mirabilis * on cefdinit * follow culture results (8) Diabetes: Code(s): E11.9 - Type 2 diabetes mellitus without complications Status: Chronic Assessment and Plan: * on acchecks * on SSI Subjective Date/time seen: 03/02/20 11:30 Interval history: The patient is weaker today than the last time I saw him. His blood pressure was low this morning when they tried to dialyze him. Exam Narrative: Exam Narrative: General: WD/WN male in NAD Heart: normal S1 and S2; 3/6 systolic ejection murmur Lungs: clear bilaterally Abdomen: soft, nontender, nondistended, positive bowel sounds Extremities: no cyanosis or clubbing; trace edema Skin: no rash Objective Data Vital Signs Vital Signs: Vital Signs - 24 hr 03/01/20 11:45 03/01/20 12:00 03/01/20 12:15 Temperature
--- NOTE | 2020-03-02 11:30 | PM.PNNEP ---
Progress Note: A&P Assessment and Plan (1) KENNY (acute kidney injury): Code(s): N17.9 - Acute kidney failure, unspecified Status: Acute Assessment and Plan: is this really KENNY or is this just progression of his known CKD?? -- leaning towards the latter The patient has been on dialysis for about a week His creatinine and his BUN are better. His fluid status looks better. He is only on 3L of oxygen. creatinine has been gradually worsening over the last couple of weeks since admission associated with confusion (early uremia?) however, elevated ESR in association with nephrotic proteinuria is concerning all serologies to date negative (SPE/UPE/REX/dsDNA-ab/hepatitis/ANCA) although C3 was slightly low - renal biopsy still a consideration but not urgent Today the patient had dialysis but they were unable unable to start because his blood pressure was so low. He did receive 3 antihypertensives right before the treatment. I asked the nurse to wait a couple of hours to let these wear off so we can get his treatment done today. Hospitalist is considering discharge to the snf today. (2) Chronic progressive renal failure, stage 4 (severe): Code(s): N18.4 - Chronic kidney disease, stage 4 (severe) Status: Chronic Assessment and Plan: baseline creatinine runs around 2.5 - 2.8mg/dl due to diabetes, hypertension, cardiac + vavlular heart disease (systolic + diastolic heart failure along with aortic stenosis) (3) Confusion: Code(s): R41.0 - Disorientation, unspecified Status: Acute Assessment and Plan: Seems to have improved a little bit. (4) Acute exacerbation of congestive heart failure: Code(s): I50.9 - Heart failure, unspecified Status: Acute Assessment and Plan: Cardiology following Will control the fluid status with dialysis if his blood pressure will permit. (5) Hypertension: Code(s): I10 - Essential (primary) hypertension Status: Acute Assessment and Plan: BP seems to be doing better I think we need less medication. Because of the aortic stenosis we do not want his blood pressure to be too low. (6) Anemia: Code(s): D64.9 - Anemia, unspecified Status: Acute Assessment and Plan: due to iron deficiency and underlying CKD on Epogen with HD H/H improving (7) UTI (urinary tract infection): Code(s): N39.0 - Urinary tract infection, site not specified Status: Acute Assessment and Plan: urine culture with Proteus mirabilis on cefdinit follow culture results (8) Diabetes: Code(s): E11.9 - Type 2 diabetes mellitus without complications Status: Chronic Assessment and Plan: on acchecks on SSI Subjective Date/time seen: 03/02/20 11:30 Interval history: The patient is weaker today than the last time I saw him. His blood pressure was low this morning when they tried to dialyze him. Exam Narrative: Exam Narrative: General: WD/WN male in NAD Heart: normal S1 and S2; 3/6 systolic ejection murmur Lungs: clear bilaterally Abdomen: soft, nontender, nondistended, positive bowel sounds Extremities: no cyanosis or clubbing; trace edema Skin: no rash Objective Data Vital Signs Vital Signs: Vital Signs - 24 hr 03/01/20 11:45 03/01/20 12:00 03/01/20 12:15 Temperature Pulse Rate 64 66 69 Respiratory Rate Blood Pressure 126/61 122/62 116/59 L Pulse Oximetry 03/01/20 12:30 03/01/20 12:45 03/01/20 13:00 Temperature Pulse Rate 68 69 54 L Respiratory Rate Blood Pressure 112/55 L 124/59 L 119/65 Pulse Oximetry 03/01/20 13:15 03/01/20 13:20 03/01/20 13:30 Temperature 37.5 C Pulse Rate 66 75 68 Respiratory Rate 20 Blood Pressure 126/61 134/58 L 149/65 H Pulse Oximetry 03/01/20 14:00 03/01/20 20:00 03/01/20 20:14 Temperature 36.9 C 37.2 C Pulse Rate 79 73 72 Respirator
--- NOTE | 2020-03-02 13:34 | PM.DS ---
DS: Admitting Diagnosis Admitting Diagnosis Admitting Diagnosis: Shortness of breath. DS: Discharge Diagnosis Discharge Diagnosis (1) COVID-19: Code(s): U07.1 - COVID-19 Status: Acute Assessment and Plan: Patient tested negative 02/14/20 for COVID but now positive on 03/01/20 (done as a screening to go to the SNF; patient asymptomatic). Patient has been afebrile since admission. It is unclear when he was exposed or how long he has had COVID. His O2 requirement has been stable for many days. We did started Decadron given unclear how or when he might have contracted the virus. (2) Confusion: Code(s): R41.0 - Disorientation, unspecified Status: Acute Assessment and Plan: Patient confused 02/28. Labs, ABG and CXR okay. CT brain ordered but this also showing no acute changes. Symptoms improved after having HD yesterday. Could be COVID related but felt less likely. Plan for HD again today. (3) Acute respiratory failure with hypoxia: Code(s): J96.01 - Acute respiratory failure with hypoxia Status: Acute Assessment and Plan: Secondary to congestive heart failure. COVID test negative 02/14/20 but positive now. He does have evidence of aspiration with thin liquids. Hypoxia could be related to dysphagia/aspiration as well. Tunnel cath placed 02/22 and now on HD. Diet adjusted. (4) Acute exacerbation of congestive heart failure: Code(s): I50.9 - Heart failure, unspecified Status: Acute Assessment and Plan: Echo here revealed EF of 55% with diastolic dysfunction Grade I and moderate to severe with moderate MR. BNP 32K. CXR showing pulmonary edema. Started on diuretics with IV Bumex and po Metolazone per nephrology. Clinically better and CXR 02/28 looks better. We continued Jamal hose. We continued HD to control fluid status. Lasix resumed. (5) Chronic progressive renal failure, stage 4 (severe): Code(s): N18.4 - Chronic kidney disease, stage 4 (severe) Status: Chronic Assessment and Plan: Cr was in the mid-2 range in December. Creatinine 3.1 on admission and increased to 3.3 the next day. Cr running 3.3-3.6 range for many days but then 4.1-4.5 and climbing despite being off his diuretics (held 02/15). Renal sonogram showed no hydro but distended bladder and over 600 ml residual so cath placed. No change in Cr since Ahuja placed so less likely from obstructive uropathy. Renal biopsy on hold due to no significant elevation of autoimmune markers. Patient also mildly confused which could be related to the azotemia. With continued evidence of fluid overload and uremia, he was started dialysis 02/22 and will continue outpatient dialysis Wednesday//Wednesday. (6) Aortic stenosis: Onset Date: ~12/2019 Code(s): I35.0 - Nonrheumatic aortic (valve) stenosis Status: Acute Assessment and Plan: Echo showng moderate to severe with 1 cm2 valve area. Being followed by cardiology. (7) Chronic anemia: Code(s): D64.9 - Anemia, unspecified Status: Acute Assessment and Plan: Patient with chronic anemia mostly in the 10-11 prior to admission. Hgb had dropped into the 9 range but 11 now. [place] anemia of chronic disease with iron deficiency component as well. He completed IV iron x 5 days. (8) Hypertension: Code(s): I10 - Essential (primary) hypertension Status: Acute Assessment and Plan: Patient's blood pressure was monitored closely Blood pressure remained mostly well controlled. We continued current medications with Norvasc and Coreg. (9) Type 2 diabetes mellitus with peripheral neuropathy: Code(s): E11.42 - Type 2 diabetes mellitus with diabetic polyneuropathy Status: Acute Assessment and Plan: Last A1c 5.6 in June. The patient's blood glucose was monitored closely Glucose remains well controlled. Continue to monitor wi
--- NOTE | 2020-03-02 13:57 | PC.NURSE ---
patient to dialysis per bed
--- NOTE | 2020-03-02 16:09 | PM.PNCARD ---
Progress Note: A&P Assessment and Plan (1) End stage renal disease: Code(s): N18.6 - End stage renal disease Status: Acute Assessment and Plan: Hemodialysis T//Sat. Nephrology following. (2) Hypertension: Code(s): I10 - Essential (primary) hypertension Status: Acute Assessment and Plan: Low this morning. Hydralazine and Amlodipine discontinued. (3) Aortic stenosis: Onset Date: ~12/2019 Code(s): I35.0 - Nonrheumatic aortic (valve) stenosis Status: Acute Assessment and Plan: Stable with mod-severe aortic stenosis. No urgent need to replace aortic valve. (4) Diastolic heart failure: Code(s): I50.30 - Unspecified diastolic (congestive) heart failure Status: Acute Assessment and Plan: Acute on chronic. Stable. Due to worsening kidney function with diuretics and underlying DM, hypertension, patient began hemodialysis during this hospitalization. If discharge from hospital, f/u with me in next 3-4 weeks. (5) COVID-19: Code(s): U07.1 - COVID-19 Status: Acute Assessment and Plan: Unclear when or how he contracted COVID. His CXR shows patchy infiltrate since admission, so could he have had a false negative PCR test then? Essentially asymptomatic except fatigue. Supportive treatment as per hospitalist. Subjective Date/time seen: 03/02/20 16:09 Saw patient during his hemodialysis. He is confused. Denies discomfort. Exam Const: General: cooperative, no acute distress, alert and awake; No comfortable Resp: Auscultation: clear to auscultation bilaterally, no crackles, no rales, no rhonchi and no wheezes Cardio: Jugular venous distension: no JVD Rate: regular rate Rhythm: regular rhythm Heart sounds: Murmur heart sound present (III/ systolic murmur RICS) Peripheral pulses: dorsalis pedis present GI: GI Palp: No abdominal tenderness and Yes Soft to palpation Neuro: General: oriented to person, oriented to place and oriented to time Extrem: Right lower extremity: no edema Left lower extremity: no edema Objective Data Vital Signs Vital Signs: Vital Signs - 24 hr 03/01/20 20:00 03/01/20 20:14 03/02/20 00:00 Temperature 98.9 F 98.2 F Pulse Rate 73 72 78 Respiratory Rate 20 18 Blood Pressure 138/67 143/57 H Pulse Oximetry 92 90 03/02/20 04:00 03/02/20 08:00 03/02/20 08:33 Temperature 97.7 F 97.6 F Pulse Rate 70 64 70 Respiratory Rate 18 18 Blood Pressure 146/75 H 135/58 L Pulse Oximetry 90 90 03/02/20 10:45 03/02/20 12:00 Temperature 97.9 F Pulse Rate 56 L 55 L Respiratory Rate 20 18 Blood Pressure 104/50 L 110/44 L Pulse Oximetry 93 94 Intake/Output Intake/Output: Intake & Output 02/28/20 02/29/20 03/01/20 03/02/20 23:59 23:59 23:59 23:59 Intake Total 720 210 310 Output Total 1850 2100 4776 650 [facility] -1130 -2100 -2257 -340 Meds/Results Medications: Active Medications Generic Name Dose Route Start Last Admin Trade Name Freq PRN Reason Stop Dose Admin Acetaminophen 650 mg 02/06/20 20:27 03/02/20 08:32 Acetaminophen 325 Mg Tablet PO 650 mg Q12H PRN Administration Pain Atorvastatin Calcium 10 mg 02/07/20 09:00 03/02/20 08:33 Atorvastatin 10 Mg Tablet PO 10 mg DAILY TIRSO Administration Calcium Carbonate 500 mg 02/09/20 08:00 03/02/20 08:33 Calcium/Vitamin D 500 Mg Tablet PO 500 mg DAILY@0800 TIRSO Administration Carvedilol 25 mg 02/06/20 21:00 03/02/20 08:33 Carvedilol 25 Mg Tablet PO 25 mg Q12HR TIRSO Administration Cefdinir 300 mg 02/27/20 21:00 03/01/20 20:14 Cefdinir 300 Mg Capsule PO 300 mg Q24H TIRSO Administration Clotrimazole 1 applic 02/22/20 21:00 03/02/20 08:36 Betamethasone/Clotrimazole Cr 15 Gm Tube TOPICAL 1 applic Q12HR TIRSO Administration Dexamethasone 6 mg 03/02/20 08:00 03/02/20 08:35 Dexamethasone 2 Mg Tablet PO 03/11/20 08:01 6 mg DAILY@0800 TIRSO Administration Dextrose
[2020-03-02 17:28] LABS: Glucose Point of Care 92 (65-105)
--- NOTE | 2020-03-02 18:02 | PC.NURSE ---
attempted to call report to [facility]. Talked with Rubi. [facility] is not taking covid + patients at this time. She called Ludy in administration and they will not be able to take the patient. She said that [facility] might be able to do the dialysis treatments tues, thurs, and sat and take covid +. case coordination no longer here tonight.
--- NOTE | 2020-03-02 18:38 | PM.IMPN ---
Progress Note: A&P Assessment and Plan (1) COVID-19: Code(s): U07.1 - COVID-19 Status: Acute Assessment and Plan: Patient tested negative 02/14/20 for COVID but now positive on 03/01/20 (done as a screening to go to the SNF; patient asymptomatic). Patient has been afebrile since admission. It is unclear when he was exposed or how long he has had COVID. His O2 requirement has been stable for many days. We did started Decadron given unclear how or when he might have contracted the virus. Patient was discharged after arrangements made. RN called to give report to the facility but the facility did not know patient was COVID positive so refused patient. Patient to remain overnight here. Need to make arrangements with another facility tomorrow. (2) Confusion: Code(s): R41.0 - Disorientation, unspecified Status: Acute Assessment and Plan: Patient confused 02/28. Labs, ABG and CXR okay. CT brain ordered but this also showing no acute changes. Symptoms improved after having HD yesterday. Could be COVID related but felt less likely. Plan for HD again today. (3) Acute respiratory failure with hypoxia: Code(s): J96.01 - Acute respiratory failure with hypoxia Status: Acute Assessment and Plan: Secondary to congestive heart failure. COVID test negative 02/14/20 but positive now. He does have evidence of aspiration with thin liquids. Hypoxia could be related to dysphagia/aspiration as well. Tunnel cath placed 02/22 and now on HD. Diet adjusted. (4) Acute exacerbation of congestive heart failure: Code(s): I50.9 - Heart failure, unspecified Status: Acute Assessment and Plan: Echo here revealed EF of 55% with diastolic dysfunction Grade I and moderate to severe with moderate MR. BNP 32K. CXR showing pulmonary edema. Started on diuretics with IV Bumex and po Metolazone per nephrology. Clinically better and CXR 02/28 looks better. We continued Jamal hose. We continued HD to control fluid status. Lasix resumed. (5) Chronic progressive renal failure, stage 4 (severe): Code(s): N18.4 - Chronic kidney disease, stage 4 (severe) Status: Chronic Assessment and Plan: Cr was in the mid-2 range in December. Creatinine 3.1 on admission and increased to 3.3 the next day. Cr running 3.3-3.6 range for many days but then 4.1-4.5 and climbing despite being off his diuretics (held 02/15). Renal sonogram showed no hydro but distended bladder and over 600 ml residual so cath placed. No change in Cr since Ahuja placed so less likely from obstructive uropathy. Renal biopsy on hold due to no significant elevation of autoimmune markers. Patient also mildly confused which could be related to the azotemia. With continued evidence of fluid overload and uremia, he was started dialysis 02/22 and will continue outpatient dialysis Wednesday//Wednesday. (6) Aortic stenosis: Onset Date: ~12/2019 Code(s): I35.0 - Nonrheumatic aortic (valve) stenosis Status: Acute Assessment and Plan: Echo showng moderate to severe with 1 cm2 valve area. Being followed by cardiology. (7) Chronic anemia: Code(s): D64.9 - Anemia, unspecified Status: Acute Assessment and Plan: Patient with chronic anemia mostly in the 10-11 prior to admission. Hgb had dropped into the 9 range but 11 now. [place] anemia of chronic disease with iron deficiency component as well. He completed IV iron x 5 days. (8) Hypertension: Code(s): I10 - Essential (primary) hypertension Status: Acute Assessment and Plan: Patient's blood pressure was monitored closely Blood pressure remained mostly well controlled. We continued current medications with Norvasc and Coreg. (9) Type 2 diabetes mellitus with peripheral neuropathy: Code(s): E11.42 - Type 2 diabetes mellitus with diabetic polyneuropathy Status: Acute
[2020-03-02 19:32] LABS: Glucose Point of Care 139 (65-105)
[2020-03-02 19:32] LABS: Glucose Point of Care 154 (65-105)
[2020-03-02] MEDS: CEFDINIR 300 MG CAPSULE PO (20:56)
[2020-03-02] MEDS: TAMSULOSIN HCL 0.4 MG CAPSULE PO (20:57)
[2020-03-02] MEDS: VITAMIN B COMPLEX CAPSULE 1 CAP PO (20:57)
[2020-03-02 21:14] LABS: Glucose Point of Care 145 (65-105)
[2020-03-03] VITALS (9 sets, daily range): BP systolic 117–138; BP diastolic 50–69; PULSE 59–88; RESP 16–20; TEMP 36.3–37.3; O2SAT 89–95; BMI 10.0
[2020-03-03] MEDS: GABAPENTIN 300 MG CAPSULE 600 MG PO ×3 (06:07→20:52)
[2020-03-03 07:04] LABS: Albumin Level 3.2 g/dL (3.5-5.1); Anion Gap 7 mmol/L (8-16); Blood Urea Nitrogen 44 mg/dL (9-20); Calcium 8.7 mg/dL (8.4-10.2); Carbon Dioxide 27 mmol/L (22-30); Chloride 109 mmol/L (98-107); Estimated CRCL calculation 13 ml/min; Estimated Glomerular Filt Rate 14; Glucose 102 mg/dL (75-110); Phosphorus 3.5 mg/dL (2.5-4.5); Potassium 3.9 mmol/L (3.4-5.0); Sodium 143 mmol/L (137-145)
[2020-03-03] MEDS: DEXAMETHASONE 2 MG TABLET 6 MG PO (08:33)
[2020-03-03] MEDS: FUROSEMIDE 80 MG TABLET PO ×2 (08:33→17:33)
[2020-03-03] MEDS: carvediloL 25 MG TABLET PO ×2 (08:34→20:52)
[2020-03-03] MEDS: ATORVASTATIN 10 MG TABLET PO (08:34)
[2020-03-03] MEDS: FINASTERIDE 5 MG TABLET PO (08:41)
[2020-03-03] MEDS: LORATADINE 10 MG TABLET PO (08:41)
[2020-03-03] MEDS: THERAPEUTIC MULTIVITAMINS/MINERALS TAB (*BKC) 1 TABLET PO (08:42)
--- NOTE | 2020-03-03 08:42 | PM.PNCARD ---
Progress Note: A&P Assessment and Plan (1) End stage renal disease: Code(s): N18.6 - End stage renal disease Status: Acute Assessment and Plan: Hemodialysis T//Wed. Nephrology following. (2) Hypertension: Code(s): I10 - Essential (primary) hypertension Status: Acute Assessment and Plan: Low yesterday and stable today. Hydralazine and Amlodipine have been discontinued. (3) Aortic stenosis: Onset Date: ~12/2019 Code(s): I35.0 - Nonrheumatic aortic (valve) stenosis Status: Acute Assessment and Plan: Stable with mod-severe aortic stenosis. No urgent need to replace aortic valve. (4) Diastolic heart failure: Code(s): I50.30 - Unspecified diastolic (congestive) heart failure Status: Acute Assessment and Plan: Acute on chronic. Stable. Due to worsening kidney function with diuretics and underlying DM, hypertension, patient began hemodialysis during this hospitalization. If discharge from hospital, f/u with me in next 3-4 weeks. (5) COVID-19: Code(s): U07.1 - COVID-19 Status: Acute Assessment and Plan: Unclear when or how he contracted COVID. His CXR shows patchy infiltrate since admission, so could he have had a false negative PCR test then? Essentially asymptomatic except fatigue. Supportive treatment as per hospitalist. Subjective Date/time seen: 03/03/20 08:42 Patient appears more confused today and could not give me his name or place. Denies any discomfort or sob. Exam Const: General: cooperative, no acute distress and confusion; No comfortable Resp: Auscultation: clear to auscultation bilaterally, no crackles, no rales, no rhonchi and no wheezes Cardio: Jugular venous distension: no JVD Rate: regular rate Rhythm: regular rhythm Heart sounds: Murmur heart sound present (III/ systolic murmur RICS) Peripheral pulses: dorsalis pedis present GI: GI Palp: No abdominal tenderness and Yes Soft to palpation Neuro: General: oriented to person, oriented to place and oriented to time Extrem: Right lower extremity: no edema Left lower extremity: no edema Objective Data Vital Signs Vital Signs: Vital Signs - 24 hr 03/02/20 10:45 03/02/20 12:00 03/02/20 13:58 Temperature 97.9 F 97.7 F Pulse Rate 56 L 55 L 57 L Respiratory Rate 20 18 20 Blood Pressure 104/50 L 110/44 L 137/48 L Pulse Oximetry 93 94 03/02/20 14:12 03/02/20 14:15 03/02/20 14:30 Temperature Pulse Rate 55 L 54 L 55 L Respiratory Rate Blood Pressure 105/55 L 131/59 L 108/46 L Pulse Oximetry 03/02/20 14:45 03/02/20 15:00 03/02/20 15:15 Temperature Pulse Rate 59 L 54 L 53 L Respiratory Rate Blood Pressure 88/52 L 115/48 L 103/48 L Pulse Oximetry 03/02/20 15:30 03/02/20 15:45 03/02/20 16:00 Temperature 97.7 F Pulse Rate 48 L 55 L 54 L Respiratory Rate 18 Blood Pressure 115/48 L 104/49 L 106/52 L Pulse Oximetry 97 03/02/20 16:15 03/02/20 16:30 03/02/20 16:53 Temperature Pulse Rate 54 L 54 L 58 L Respiratory Rate Blood Pressure 108/49 L 98/47 L 110/51 L Pulse Oximetry 03/02/20 16:56 03/02/20 17:38 03/02/20 20:02 Temperature 97.7 F 97.7 F 97.3 F L Pulse Rate 57 L 57 L 61 Respiratory Rate 20 18 18 Blood Pressure 137/48 L 137/48 L 130/50 L Pulse Oximetry 94 90 03/02/20 20:45 03/02/20 20:56 03/02/20 23:53 Temperature 97.3 F L Pulse Rate 57 L 53 L Respiratory Rate 18 Blood Pressure 116/55 L Pulse Oximetry 90 90 03/03/20 04:00 03/03/20 08:20 Temperature 97.4 F L 99.2 F Pulse Rate 62 63 Respiratory Rate 18 16 Blood Pressure 138/50 L 130/54 L Pulse Oximetry 91 90 Intake/Output Intake/Output: Intake & Output 02/29/20 03/01/20 03/02/20 03/03/20 23:59 23:59 23:59 23:59 Intake Total 210 310 30 Output Total 1004 7513 6166 100 Balance -2100 -2257 -1540 -70 Meds/Results Medications: Active Medications Generic Name Dose Route Start Last Admin Trade Na
[2020-03-03] MEDS: PANTOPRAZOLE 40 MG TABLET PO (08:43)
[2020-03-03] MEDS: HEPARIN SODIUM 5,000 UNITS/ML VIAL 5000 UNITS SUB-Q ×2 (08:49→20:51)
[2020-03-03] MEDS: DOCUSATE SODIUM 100 MG CAPSULE PO ×2 (08:49→20:52)
--- NOTE | 2020-03-03 11:11 | P.PNNP_ITS ---
Progress Note: A&P Assessment and Plan (1) KENNY (acute kidney injury): Code(s): N17.9 - Acute kidney failure, unspecified Status: Acute Assessment and Plan: * is this really KENNY or is this just progression of his known CKD?? -- leaning towards the latter * The patient has been on dialysis for about a week * He did better in dialysis yesterday afternoon after some of the meds wore off. * Fluid status is better. * Electrolytes and BUN are better. * Will continue dialysis 3 times a week. (2) Chronic progressive renal failure, stage 4 (severe): Code(s): N18.4 - Chronic kidney disease, stage 4 (severe) Status: Chronic Assessment and Plan: * baseline creatinine runs around 2.5 - 2.8mg/dl * due to diabetes, hypertension, cardiac + vavlular heart disease (systolic + diastolic heart failure along with aortic stenosis) (3) Confusion: Code(s): R41.0 - Disorientation, unspecified Status: Acute Assessment and Plan: * Seems to wax and wan. * Consider dementia as an underlying issue questions (4) Acute exacerbation of congestive heart failure: Code(s): I50.9 - Heart failure, unspecified Status: Acute Assessment and Plan: * Cardiology following * Will control the fluid status with dialysis if his blood pressure will permit. (5) Hypertension: Code(s): I10 - Essential (primary) hypertension Status: Acute Assessment and Plan: * BP was too low yesterday. * Off amlodipine and hydralazine. He continues on carvedilol. (6) Anemia: Code(s): D64.9 - Anemia, unspecified Status: Acute Assessment and Plan: * due to iron deficiency and underlying CKD * on Epogen with HD * Check CBC in the morning (7) UTI (urinary tract infection): Code(s): N39.0 - Urinary tract infection, site not specified Status: Acute Assessment and Plan: * urine culture with Proteus mirabilis * on cefdinir * follow culture results (8) Diabetes: Code(s): E11.9 - Type 2 diabetes mellitus without complications Status: Chronic Assessment and Plan: * on acchecks * on SSI (9) COVID-19: Code(s): U07.1 - COVID-19 Status: Acute Assessment and Plan: COVID positive. Asymptomatic. Subjective Date/time seen: 03/03/20 11:11 Interval history: The patient is a bit groggy today. Not very interactive. Does not look toxic Review of Systems Review of Systems: ROS unobtainable: Yes unobtainable due to medical condition Exam Narrative: Exam Narrative: General: WD/WN male in NAD Heart: normal S1 and S2; 3/6 systolic ejection murmur Lungs: clear to auscultation Abdomen: soft, nontender, nondistended, positive bowel sounds Extremities: trace edema Skin: no rash or subcu nodules Objective Data Vital Signs Vital Signs: Vital Signs - 24 hr 03/02/20 12:00 03/02/20 13:58 03/02/20 14:12 Temperature 36.6 C 36.5 C Pulse Rate 55 L 57 L 55 L Respiratory Rate 18 20 Blood Pressure 110/44 L 137/48 L 105/55 L Pulse Oximetry 94 03/02/20 14:15 03/02/20 14:30 03/02/20 14:45 Temperature Pulse Rate 54 L 55 L 59 L Respiratory Rate Blood Pressure 131/59 L 108/46 L 88/52 L Pulse Oximetry 03/02/20
--- NOTE | 2020-03-03 11:11 | PM.PNNEP ---
Progress Note: A&P Assessment and Plan (1) KENNY (acute kidney injury): Code(s): N17.9 - Acute kidney failure, unspecified Status: Acute Assessment and Plan: is this really KENNY or is this just progression of his known CKD?? -- leaning towards the latter The patient has been on dialysis for about a week He did better in dialysis yesterday afternoon after some of the meds wore off. Fluid status is better. Electrolytes and BUN are better. Will continue dialysis 3 times a week. (2) Chronic progressive renal failure, stage 4 (severe): Code(s): N18.4 - Chronic kidney disease, stage 4 (severe) Status: Chronic Assessment and Plan: baseline creatinine runs around 2.5 - 2.8mg/dl due to diabetes, hypertension, cardiac + vavlular heart disease (systolic + diastolic heart failure along with aortic stenosis) (3) Confusion: Code(s): R41.0 - Disorientation, unspecified Status: Acute Assessment and Plan: Seems to wax and wan. Consider dementia as an underlying issue questions (4) Acute exacerbation of congestive heart failure: Code(s): I50.9 - Heart failure, unspecified Status: Acute Assessment and Plan: Cardiology following Will control the fluid status with dialysis if his blood pressure will permit. (5) Hypertension: Code(s): I10 - Essential (primary) hypertension Status: Acute Assessment and Plan: BP was too low yesterday. Off amlodipine and hydralazine. He continues on carvedilol. (6) Anemia: Code(s): D64.9 - Anemia, unspecified Status: Acute Assessment and Plan: due to iron deficiency and underlying CKD on Epogen with HD Check CBC in the morning (7) UTI (urinary tract infection): Code(s): N39.0 - Urinary tract infection, site not specified Status: Acute Assessment and Plan: urine culture with Proteus mirabilis on cefdinir follow culture results (8) Diabetes: Code(s): E11.9 - Type 2 diabetes mellitus without complications Status: Chronic Assessment and Plan: on acchecks on SSI (9) COVID-19: Code(s): U07.1 - COVID-19 Status: Acute Assessment and Plan: COVID positive. Asymptomatic. Subjective Date/time seen: 11/29/20 11:11 Interval history: The patient is a bit groggy today. Not very interactive. Does not look toxic Review of Systems Review of Systems: ROS unobtainable: Yes unobtainable due to medical condition Exam Narrative: Exam Narrative: General: WD/WN male in NAD Heart: normal S1 and S2; 3/6 systolic ejection murmur Lungs: clear to auscultation Abdomen: soft, nontender, nondistended, positive bowel sounds Extremities: trace edema Skin: no rash or subcu nodules Objective Data Vital Signs Vital Signs: Vital Signs - 24 hr 03/02/20 12:00 03/02/20 13:58 03/02/20 14:12 Temperature 36.6 C 36.5 C Pulse Rate 55 L 57 L 55 L Respiratory Rate 18 20 Blood Pressure 110/44 L 137/48 L 105/55 L Pulse Oximetry 94 03/02/20 14:15 03/02/20 14:30 03/02/20 14:45 Temperature Pulse Rate 54 L 55 L 59 L Respiratory Rate Blood Pressure 131/59 L 108/46 L 88/52 L Pulse Oximetry 03/02/20 15:00 03/02/20 15:15 03/02/20 15:30 Temperature Pulse Rate 54 L 53 L 48 L Respiratory Rate Blood Pressure 115/48 L 103/48 L 115/48 L Pulse Oximetry 03/02/20 15:45 03/02/20 16:00 03/02/20 16:15 Temperature 36.5 C Pulse Rate 55 L 54 L 54 L Respiratory Rate 18 Blood Pressure 104/49 L 106/52 L 108/49 L Pulse Oximetry 97 03/02/20 16:30 03/02/20 16:53 03/02/20 16:56 Temperature 36.5 C Pulse Rate 54 L 58 L 57 L Respiratory Rate 20 Blood Pressure 98/47 L 110/51 L 137/48 L Pulse Oximetry 03/02/20 17:38 03/02/20 20:02 03/02/20 20:45 Temperature 36.5 C 36.3 C L Pulse Rate 57 L 61 Respiratory Rate 18 18 Blood Pressure 137/48 L 130/50 L Pulse Oximetry 94 9
[2020-03-03] MEDS: BETAMETHASONE/CLOTRIMAZOLE CR 15 GM TUBE 1 APPLIC TOPICAL ×2 (11:52→21:05)
--- NOTE | 2020-03-03 15:57 | PCPTNOTE ---
Patient refused treatment this session due to Not feeling good. Explained the importance of therapy to Pt. Pt stated No! I don't feel good, just cover me up with my blanket. Will continue per POC tomorrow.
[2020-03-03 17:06] LABS: Glucose Point of Care 120 (65-105)
[2020-03-03 17:07] LABS: Glucose Point of Care 193 (65-105)
--- NOTE | 2020-03-03 17:12 | PM.IMPN ---
Progress Note: A&P Assessment and Plan (1) COVID-19: Code(s): U07.1 - COVID-19 Status: Acute Assessment and Plan: Patient tested negative 02/14/20 for COVID but now positive on 03/01/20 (done as a screening to go to the SNF; patient asymptomatic). Patient has been afebrile since admission. It is unclear when he was exposed or how long he has had COVID. His first COVID test may have been a false negative. He is having increasing O2 requirment now but he is more confused and not wearing O2 which makes it difficult knowing his O2 requirement. Continue Decadron (2) Confusion: Code(s): R41.0 - Disorientation, unspecified Status: Acute Assessment and Plan: Patient confused 02/28. Labs, ABG and CXR okay. CT brain ordered but this also showing no acute changes. Symptoms improved after having HD 03/01 and he is slowly improving. Confusion could be COVID related. (3) Acute respiratory failure with hypoxia: Code(s): J96.01 - Acute respiratory failure with hypoxia Status: Acute Assessment and Plan: Secondary to congestive heart failure. COVID test negative 02/14/20 but positive now. He does have evidence of aspiration with thin liquids. Hypoxia could be related to dysphagia/aspiration and/or COVID. Tunnel cath placed 02/22 and now on HD. Diet adjusted. (4) Acute exacerbation of congestive heart failure: Code(s): I50.9 - Heart failure, unspecified Status: Acute Assessment and Plan: Echo here revealed EF of 55% with diastolic dysfunction Grade I and moderate to severe with moderate MR. BNP 32K. CXR on admission showing probably pulmonary edema. Started on diuretics with IV Bumex and po Metolazone per nephrology. Clinically better and CXR 03/02 looks better. Will continue Jamal hose. HD to control fluid status. Lasix resumed. (5) Chronic progressive renal failure, stage 4 (severe): Code(s): N18.4 - Chronic kidney disease, stage 4 (severe) Status: Chronic Assessment and Plan: Cr was in the mid-2 range in December. Creatinine 3.1 on admission and increased to 3.3 the next day. Cr running 3.3-3.6 range for many days but then 4.1-4.5 and climbing despite being off his diuretics (held 02/15). Renal sonogram showed no hydro but distended bladder and over 600 ml residual so cath placed. No change in Cr since Ahuja placed so less likely from obstructive uropathy. Renal biopsy on hold due to no significant elevation of autoimmune markers. Patient also confused which could be related to the azotemia. With continued evidence of fluid overload and uremia, he was started on dialysis 02/22 and will continue outpatient dialysis Wednesday//Wednesday. (6) Aortic stenosis: Onset Date: ~12/2019 Code(s): I35.0 - Nonrheumatic aortic (valve) stenosis Status: Acute Assessment and Plan: Echo showng moderate to severe with 1 cm2 valve area. Being followed by cardiology. (7) Chronic anemia: Code(s): D64.9 - Anemia, unspecified Status: Acute Assessment and Plan: Patient with chronic anemia mostly in the 10-11 prior to admission. Hgb had dropped into the 9 range but 11 now. [place] anemia of chronic disease with iron deficiency component as well. He completed IV iron x 5 days. (8) Hypertension: Code(s): I10 - Essential (primary) hypertension Status: Acute Assessment and Plan: Patient's blood pressure was monitored closely. Blood pressure remained mostly well controlled but dropped low yesterday. Norvasc and Hydralazine stopped. Continue Coreg. Still has Lasix ordered as well (9) Type 2 diabetes mellitus with peripheral neuropathy: Code(s): E11.42 - Type 2 diabetes mellitus with diabetic polyneuropathy Status: Acute Assessment and Plan: Last A1c 5.6 in June. The patient's blood glucose monitored closely Glucose remains mostly well controlled.
[2020-03-03] MEDS: INSULIN ASPART (*BKC) 100 UNITS/ML SUB-Q (17:33)
[2020-03-03 17:40] LABS: Glucose Point of Care 275 (65-105)
[2020-03-03] MEDS: CEFDINIR 300 MG CAPSULE PO (20:51)
[2020-03-03] MEDS: TAMSULOSIN HCL 0.4 MG CAPSULE PO (20:52)
[2020-03-03] MEDS: VITAMIN B COMPLEX CAPSULE 1 CAP PO (21:05)
[2020-03-03 22:59] LABS: Glucose Point of Care 257 (65-105)
[2020-03-04] VITALS (11 sets, daily range): BP systolic 123–138; BP diastolic 48–66; PULSE 57–62; RESP 18–20; TEMP 36.1–36.9; O2SAT 89–93; BMI 10.0
[2020-03-04] MEDS: GABAPENTIN 300 MG CAPSULE 600 MG PO ×3 (05:29→20:19)
[2020-03-04 06:31] LABS: Hematocrit 35.5 % (42.0-52.0); Hemoglobin 11.8 g/dL (14.0-18.0); Mean Corpuscular HGB Conc 33.2 g/dl (32-36); Mean Corpuscular Hemoglobin 32.1 pg (26-34); Mean Corpuscular Volume 96.5 fl (80-100); Mean Platelet Volume 11.3 fl (7.4-10.4); Platelet Count Result 126 k/mm3 (150-375); Red Blood Count 3.68 M/mm3 (4.6-6.20); Red Cell Distribution Width 15.1 % (11.5-14.5); White Blood Count 5.1 K/mm3 (4.5-10.0)
[2020-03-04 06:46] LABS: Albumin Level 3.3 g/dL (3.5-5.1); Anion Gap 9 mmol/L (8-16); Blood Urea Nitrogen 70 mg/dL (9-20); Calcium 8.9 mg/dL (8.4-10.2); Carbon Dioxide 28 mmol/L (22-30); Chloride 105 mmol/L (98-107); Estimated CRCL calculation 12 ml/min; Estimated Glomerular Filt Rate 11; Glucose 114 mg/dL (75-110); Phosphorus 3.8 mg/dL (2.5-4.5); Potassium 4.5 mmol/L (3.4-5.0); Sodium 142 mmol/L (137-145)
[2020-03-04 08:52] LABS: Glucose Point of Care 105 (65-105)
[2020-03-04] MEDS: DOCUSATE SODIUM 100 MG CAPSULE PO ×2 (08:56→20:19)
[2020-03-04] MEDS: LORATADINE 10 MG TABLET PO (08:56)
[2020-03-04] MEDS: ATORVASTATIN 10 MG TABLET PO (08:56)
[2020-03-04] MEDS: FINASTERIDE 5 MG TABLET PO (08:56)
[2020-03-04] MEDS: FUROSEMIDE 80 MG TABLET PO ×2 (08:56→17:39)
[2020-03-04] MEDS: PANTOPRAZOLE 40 MG TABLET PO (08:56)
[2020-03-04] MEDS: carvediloL 25 MG TABLET PO ×2 (08:57→20:18)
[2020-03-04] MEDS: THERAPEUTIC MULTIVITAMINS/MINERALS TAB (*BKC) 1 TABLET PO (08:57)
[2020-03-04] MEDS: DEXAMETHASONE 2 MG TABLET 6 MG PO (08:58)
[2020-03-04] MEDS: BETAMETHASONE/CLOTRIMAZOLE CR 15 GM TUBE 1 APPLIC TOPICAL ×2 (09:02→20:18)
[2020-03-04] MEDS: HEPARIN SODIUM 5,000 UNITS/ML VIAL 5000 UNITS SUB-Q ×2 (09:02→20:18)
--- NOTE | 2020-03-04 11:45 | PCNFU ---
Nutrition Follow-Up Complete: Goal: Pt current nutrition is . Nutrition recommendation: Last recorded weight is 82.3 kg. Bowel Motility: Labs Reviewed: Meds Noted: Additional Notes:
--- NOTE | 2020-03-04 11:46 | PCNWS ---
Weekly nutritional screen. Patient is tolerating current diet-Renal Dialysis diet with Mildly Thick liquids, Level 2 with adequate intake-reporting about 75% of meals as well as Nepro once daily which is providing an additional 425 kcals and 19 gms protein. Patient likes soft foods. Weight-82.3 kg down from 11.1 kg on admit. Patient started Dialysis. No further nutritional needs at this time.
--- NOTE | 2020-03-04 14:10 | PCRCNOTE ---
HOME O2 NO LONGER NEEDED DUE TO D/C TO SNF. WILL NOTIFY [facility]
--- NOTE | 2020-03-04 14:45 | P.PNNP_ITS ---
Progress Note: A&P Assessment and Plan (1) KENNY (acute kidney injury): Code(s): N17.9 - Acute kidney failure, unspecified Status: Acute Assessment and Plan: * is this really KENNY or is this just progression of his known CKD?? -- leaning towards the latter * The patient has been on dialysis for about a week * he looks euvolemic. * Potassium is fine. * He will get dialysis later today (2) Chronic progressive renal failure, stage 4 (severe): Code(s): N18.4 - Chronic kidney disease, stage 4 (severe) Status: Chronic Assessment and Plan: * baseline creatinine runs around 2.5 - 2.8mg/dl * due to diabetes, hypertension, cardiac + vavlular heart disease (systolic + diastolic heart failure along with aortic stenosis) (3) Confusion: Code(s): R41.0 - Disorientation, unspecified Status: Acute Assessment and Plan: * Seems to wax and wan. * Consider dementia as an underlying issue questions (4) Acute exacerbation of congestive heart failure: Code(s): I50.9 - Heart failure, unspecified Status: Acute Assessment and Plan: * Cardiology following * volume status looks pretty good right now. (5) Hypertension: Code(s): I10 - Essential (primary) hypertension Status: Acute Assessment and Plan: * BP Is better. He is on carvedilol alone (6) Anemia: Code(s): D64.9 - Anemia, unspecified Status: Acute Assessment and Plan: * due to iron deficiency and underlying CKD * on Epogen with HD * Check CBC in the morning (7) UTI (urinary tract infection): Code(s): N39.0 - Urinary tract infection, site not specified Status: Acute Assessment and Plan: * urine culture with Proteus mirabilis * on cefdinir * follow culture results (8) Diabetes: Code(s): E11.9 - Type 2 diabetes mellitus without complications Status: Chronic Assessment and Plan: * on acchecks * on SSI (9) COVID-19: Code(s): U07.1 - COVID-19 Status: Acute Assessment and Plan: COVID positive. Asymptomatic. Subjective Date/time seen: 03/04/20 14:45 Interval history: The patient is Better today. Comfortable lying in bed. He is due for dialysis a little later today Review of Systems Cardiovascular: Cardiovascular: Reports no additional cardiovascular complaints Respiratory: Respiratory: Reports no additional respiratory complaints Gastrointestinal: Gastrointestinal: Reports no additional gastrointestinal complaints Genitourinary: Genitourinary: Reports no additional male genitourinary complaints Exam Narrative: Exam Narrative: General: WD/WN male in NAD Heart: normal S1 and S2; 3/6 systolic ejection murmur Lungs: clear Abdomen: soft, nontender, nondistended, positive bowel sounds Extremities: trace edema Skin: no rash Objective Data Vital Signs Vital Signs: Vital Signs - 24 hr 03/03/20 16:00 03/03/20 20:00 03/03/20 20:52 Temperature 36.3 C L Pulse Rate 61 60 Respiratory Rate 18 Blood Pressure 117/69 Pulse Oximetry 89 L 90 03/03/20 21:40 03/04/20 02:00 03/04/20 05:00 Temperature 36.9 C 36.9 C 36.4 C L Pulse Rate 59 L 58 L 59 L Respiratory Rate 20 20 20 Blood Pressur
--- NOTE | 2020-03-04 14:45 | PM.PNNEP ---
Progress Note: A&P Assessment and Plan (1) KENNY (acute kidney injury): Code(s): N17.9 - Acute kidney failure, unspecified Status: Acute Assessment and Plan: is this really KENNY or is this just progression of his known CKD?? -- leaning towards the latter The patient has been on dialysis for about a week he looks euvolemic. Potassium is fine. He will get dialysis later today (2) Chronic progressive renal failure, stage 4 (severe): Code(s): N18.4 - Chronic kidney disease, stage 4 (severe) Status: Chronic Assessment and Plan: baseline creatinine runs around 2.5 - 2.8mg/dl due to diabetes, hypertension, cardiac + vavlular heart disease (systolic + diastolic heart failure along with aortic stenosis) (3) Confusion: Code(s): R41.0 - Disorientation, unspecified Status: Acute Assessment and Plan: Seems to wax and wan. Consider dementia as an underlying issue questions (4) Acute exacerbation of congestive heart failure: Code(s): I50.9 - Heart failure, unspecified Status: Acute Assessment and Plan: Cardiology following volume status looks pretty good right now. (5) Hypertension: Code(s): I10 - Essential (primary) hypertension Status: Acute Assessment and Plan: BP Is better. He is on carvedilol alone (6) Anemia: Code(s): D64.9 - Anemia, unspecified Status: Acute Assessment and Plan: due to iron deficiency and underlying CKD on Epogen with HD Check CBC in the morning (7) UTI (urinary tract infection): Code(s): N39.0 - Urinary tract infection, site not specified Status: Acute Assessment and Plan: urine culture with Proteus mirabilis on cefdinir follow culture results (8) Diabetes: Code(s): E11.9 - Type 2 diabetes mellitus without complications Status: Chronic Assessment and Plan: on acchecks on SSI (9) COVID-19: Code(s): U07.1 - COVID-19 Status: Acute Assessment and Plan: COVID positive. Asymptomatic. Subjective Date/time seen: 03/04/20 14:45 Interval history: The patient is Better today. Comfortable lying in bed. He is due for dialysis a little later today Review of Systems Cardiovascular: Cardiovascular: Reports no additional cardiovascular complaints Respiratory: Respiratory: Reports no additional respiratory complaints Gastrointestinal: Gastrointestinal: Reports no additional gastrointestinal complaints Genitourinary: Genitourinary: Reports no additional male genitourinary complaints Exam Narrative: Exam Narrative: General: WD/WN male in NAD Heart: normal S1 and S2; 3/6 systolic ejection murmur Lungs: clear Abdomen: soft, nontender, nondistended, positive bowel sounds Extremities: trace edema Skin: no rash Objective Data Vital Signs Vital Signs: Vital Signs - 24 hr 03/03/20 16:00 03/03/20 20:00 03/03/20 20:52 Temperature 36.3 C L Pulse Rate 61 60 Respiratory Rate 18 Blood Pressure 117/69 Pulse Oximetry 89 L 90 03/03/20 21:40 03/04/20 02:00 03/04/20 05:00 Temperature 36.9 C 36.9 C 36.4 C L Pulse Rate 59 L 58 L 59 L Respiratory Rate 20 20 20 Blood Pressure 132/55 L 123/63 134/48 L Pulse Oximetry 92 91 90 03/04/20 08:00 03/04/20 08:55 03/04/20 08:57 Temperature 36.3 C L Pulse Rate 60 62 Respiratory Rate 18 Blood Pressure 129/53 L Pulse Oximetry 91 93 03/04/20 13:00 Temperature 36.1 C L Pulse Rate 58 L Respiratory Rate 20 Blood Pressure 128/66 Pulse Oximetry 89 L Intake/Output Intake/Output: Intake & Output 03/01/20 03/02/20 03/03/20 03/04/20 23:59 23:59 23:59 23:59 Intake Total 210 310 630 265 Output Total 5510 5450 300 250 [place] [address] 330 15 Meds/Results Medications: Active Medications Generic Name Dose Route Start Last Admin Trade Name Freq PRN Reason Stop Dose Admin Acetaminophen 650 mg
--- NOTE | 2020-03-04 14:51 | PM.IMPN ---
Progress Note: A&P Assessment and Plan (1) COVID-19: Code(s): U07.1 - COVID-19 Status: Acute Assessment and Plan: Patient tested negative 02/14/20 for COVID but now positive on 03/01/20 (done as a screening to go to the SNF; patient asymptomatic). Patient has been afebrile since admission. It is unclear when he was exposed or how long he has had COVID. His first COVID test may have been a false negative. He is having increasing O2 requirment now but he is more confused and not wearing O2 which makes it difficult knowing his O2 requirement. Continue Decadron (2) Confusion: Code(s): R41.0 - Disorientation, unspecified Status: Acute Assessment and Plan: Patient confused 02/28. Labs, ABG and CXR okay. CT brain ordered but this also showing no acute changes. Symptoms improved after having HD 03/01 and he is slowly improving. Confusion could be COVID related. (3) Acute respiratory failure with hypoxia: Code(s): J96.01 - Acute respiratory failure with hypoxia Status: Acute Assessment and Plan: Secondary to congestive heart failure. COVID test negative 02/14/20 but positive now. He does have evidence of aspiration with thin liquids. Hypoxia could be related to dysphagia/aspiration as well. Tunnel cath placed 02/22 and now on HD. Diet was adjusted. (4) Acute exacerbation of congestive heart failure: Code(s): I50.9 - Heart failure, unspecified Status: Acute Assessment and Plan: Echo here revealed EF of 55% with diastolic dysfunction Grade I and moderate to severe with moderate MR. BNP 32K. CXR on admission showing probably pulmonary edema. Started on diuretics with IV Bumex and po Metolazone per nephrology. Clinically better and CXR 03/02 looks better. Will continue Jamal hose. HD to control fluid status. Lasix resumed. (5) Chronic progressive renal failure, stage 4 (severe): Code(s): N18.4 - Chronic kidney disease, stage 4 (severe) Status: Chronic Assessment and Plan: Cr was in the mid-2 range in December. Creatinine 3.1 on admission and increased to 3.3 the next day. Cr running 3.3-3.6 range for many days but then 4.1-4.5 and climbing despite being off his diuretics (held 02/15). Renal sonogram showed no hydro but distended bladder and over 600 ml residual so cath placed. No change in Cr since Ahuja placed so less likely from obstructive uropathy. Renal biopsy on hold due to no significant elevation of autoimmune markers. Patient also mildly confused which could be related to the azotemia. With continued evidence of fluid overload and uremia, he was started dialysis 02/22 and will continue outpatient dialysis (6) Aortic stenosis: Onset Date: ~12/2019 Code(s): I35.0 - Nonrheumatic aortic (valve) stenosis Status: Acute Assessment and Plan: Echo showng moderate to severe with 1 cm2 valve area. Being followed by cardiology. (7) Chronic anemia: Code(s): D64.9 - Anemia, unspecified Status: Acute Assessment and Plan: Patient with chronic anemia mostly in the 10-11 prior to admission. Hgb had dropped into the 9 range but 11 now. [place] anemia of chronic disease with iron deficiency component as well. He completed IV iron x 5 days. (8) Hypertension: Code(s): I10 - Essential (primary) hypertension Status: Acute Assessment and Plan: Patient's blood pressure was monitored closely. Blood pressure remained mostly well controlled but dropped low yesterday. Norvasc and Hydralazine stopped. Continue Coreg. Still has Lasix ordered as well (9) Type 2 diabetes mellitus with peripheral neuropathy: Code(s): E11.42 - Type 2 diabetes mellitus with diabetic polyneuropathy Status: Acute Assessment and Plan: Last A1c 5.6 in June. The patient's blood glucose was monitored closely Glucose elevated last night but better this morning at 105. C
[2020-03-04 17:28] LABS: Glucose Point of Care 248 (65-105)
[2020-03-04] MEDS: INSULIN ASPART (*BKC) 100 UNITS/ML SUB-Q (17:39)
[2020-03-04] MEDS: VITAMIN B COMPLEX CAPSULE 1 CAP PO (20:19)
[2020-03-04] MEDS: TAMSULOSIN HCL 0.4 MG CAPSULE PO (20:19)
[2020-03-04] MEDS: CEFDINIR 300 MG CAPSULE PO (20:19)
[2020-03-04 22:42] LABS: Glucose Point of Care 237 (65-105)
[2020-03-05] VITALS (7 sets, daily range): BP systolic 107–141; BP diastolic 50–80; PULSE 60–91; RESP 16–20; TEMP 36.2–36.7; O2SAT 90–95; BMI 10.0
[2020-03-05 00:05] LABS: Glucose Point of Care 145 (65-105)
[2020-03-05] MEDS: GABAPENTIN 300 MG CAPSULE 600 MG PO ×3 (05:45→21:48)
--- NOTE | 2020-03-05 08:49 | P.PNNP_ITS ---
Progress Note: A&P Assessment and Plan (1) KENNY (acute kidney injury): Code(s): N17.9 - Acute kidney failure, unspecified Status: Acute Assessment and Plan: * is this really KENNY or is this just progression of his known CKD?? -- leaning towards the latter * The patient has been on dialysis for about a week * he looks euvolemic. * Potassium is fine. * He will get dialysis today. (2) Chronic progressive renal failure, stage 4 (severe): Code(s): N18.4 - Chronic kidney disease, stage 4 (severe) Status: Chronic Assessment and Plan: * baseline creatinine runs around 2.5 - 2.8mg/dl * due to diabetes, hypertension, cardiac + vavlular heart disease (systolic + diastolic heart failure along with aortic stenosis) (3) Confusion: Code(s): R41.0 - Disorientation, unspecified Status: Acute Assessment and Plan: * Seems to wax and wan. * He is a bit more with it today. * Consider dementia as an underlying issue questions (4) Acute exacerbation of congestive heart failure: Code(s): I50.9 - Heart failure, unspecified Status: Acute Assessment and Plan: * Cardiology following * volume status looks pretty good right now. * Trying to keep systolic above 100 (5) Hypertension: Code(s): I10 - Essential (primary) hypertension Status: Acute Assessment and Plan: * BP is better. He is on carvedilol alone (6) Anemia: Code(s): D64.9 - Anemia, unspecified Status: Acute Assessment and Plan: * due to iron deficiency and underlying CKD * has been on Epogen with HD * 11. Will hold his Epogen. (7) UTI (urinary tract infection): Code(s): N39.0 - Urinary tract infection, site not specified Status: Acute Assessment and Plan: * urine culture with Proteus mirabilis * on cefdinir * follow culture results (8) Diabetes: Code(s): E11.9 - Type 2 diabetes mellitus without complications Status: Chronic Assessment and Plan: * on acchecks * on SSI (9) COVID-19: Code(s): U07.1 - COVID-19 Status: Acute Assessment and Plan: COVID positive. Asymptomatic. Subjective Date/time seen: 03/05/20 08:49 Interval history: The patient is feeling okay. Comfortable lying in bed. He did not get dialysis yesterday but will get it today. We discussed why he is still here. Mostly red tape. Review of Systems Cardiovascular: Cardiovascular: Reports no additional cardiovascular complaints Respiratory: Respiratory: Reports no additional respiratory complaints Gastrointestinal: Gastrointestinal: Reports no additional gastrointestinal complaints Genitourinary: Genitourinary: Reports no additional male genitourinary complaints Exam Narrative: Exam Narrative: General: WD/WN male in NAD Heart: normal S1 and S2; 3/6 systolic ejection murmur Lungs: clear bilaterally Abdomen: soft, nontender, nondistended, positive bowel sounds Extremities: trace edema Skin: no rash or subcu nodules Objective Data Vital Signs Vital Signs: Vital Signs - 24 hr 03/04/20 08:55 03/04/20 08:57 03/04/20 13:00 Temperature 36.1 C L Pulse Rate 62 58 L Respiratory Rate 20 Blood Pressure 128/66 Pulse Oximetry 93 89 L 03/04/20 13:45
--- NOTE | 2020-03-05 08:49 | PM.PNNEP ---
Progress Note: A&P Assessment and Plan (1) KENNY (acute kidney injury): Code(s): N17.9 - Acute kidney failure, unspecified Status: Acute Assessment and Plan: is this really KENNY or is this just progression of his known CKD?? -- leaning towards the latter The patient has been on dialysis for about a week he looks euvolemic. Potassium is fine. He will get dialysis today. (2) Chronic progressive renal failure, stage 4 (severe): Code(s): N18.4 - Chronic kidney disease, stage 4 (severe) Status: Chronic Assessment and Plan: baseline creatinine runs around 2.5 - 2.8mg/dl due to diabetes, hypertension, cardiac + vavlular heart disease (systolic + diastolic heart failure along with aortic stenosis) (3) Confusion: Code(s): R41.0 - Disorientation, unspecified Status: Acute Assessment and Plan: Seems to wax and wan. He is a bit more with it today. Consider dementia as an underlying issue questions (4) Acute exacerbation of congestive heart failure: Code(s): I50.9 - Heart failure, unspecified Status: Acute Assessment and Plan: Cardiology following volume status looks pretty good right now. Trying to keep systolic above 100 (5) Hypertension: Code(s): I10 - Essential (primary) hypertension Status: Acute Assessment and Plan: BP is better. He is on carvedilol alone (6) Anemia: Code(s): D64.9 - Anemia, unspecified Status: Acute Assessment and Plan: due to iron deficiency and underlying CKD has been on Epogen with HD 11. Will hold his Epogen. (7) UTI (urinary tract infection): Code(s): N39.0 - Urinary tract infection, site not specified Status: Acute Assessment and Plan: urine culture with Proteus mirabilis on cefdinir follow culture results (8) Diabetes: Code(s): E11.9 - Type 2 diabetes mellitus without complications Status: Chronic Assessment and Plan: on acchecks on SSI (9) COVID-19: Code(s): U07.1 - COVID-19 Status: Acute Assessment and Plan: COVID positive. Asymptomatic. Subjective Date/time seen: 03/05/20 08:49 Interval history: The patient is feeling okay. Comfortable lying in bed. He did not get dialysis yesterday but will get it today. We discussed why he is still here. Mostly red tape. Review of Systems Cardiovascular: Cardiovascular: Reports no additional cardiovascular complaints Respiratory: Respiratory: Reports no additional respiratory complaints Gastrointestinal: Gastrointestinal: Reports no additional gastrointestinal complaints Genitourinary: Genitourinary: Reports no additional male genitourinary complaints Exam Narrative: Exam Narrative: General: WD/WN male in NAD Heart: normal S1 and S2; 3/6 systolic ejection murmur Lungs: clear bilaterally Abdomen: soft, nontender, nondistended, positive bowel sounds Extremities: trace edema Skin: no rash or subcu nodules Objective Data Vital Signs Vital Signs: Vital Signs - 24 hr 03/04/20 08:55 03/04/20 08:57 03/04/20 13:00 Temperature 36.1 C L Pulse Rate 62 58 L Respiratory Rate 20 Blood Pressure 128/66 Pulse Oximetry 93 89 L 03/04/20 13:45 03/04/20 20:00 03/04/20 20:18 Temperature Pulse Rate 62 Respiratory Rate Blood Pressure Pulse Oximetry 93 90 03/04/20 21:00 03/04/20 23:56 03/05/20 04:00 Temperature 36.5 C 36.3 C L 36.4 C Pulse Rate 59 L 57 L 60 Respiratory Rate 20 18 18 Blood Pressure 138/56 L 130/58 L 138/65 Pulse Oximetry 90 90 90 Intake/Output Intake/Output: Intake & Output 03/02/20 03/03/20 03/04/20 03/05/20 23:59 23:59 23:59 23:59 Intake Total 310 630 410 120 Output Total 1850 300 550 550 Balance -1540 330 -140 -430 Meds/Results Medications: Active Medications Generic Name Dose Route Start Last Admin Trade Name Freq PRN Reason Stop Dose Admin Ac
[2020-03-05] MEDS: DEXAMETHASONE 2 MG TABLET 6 MG PO (09:22)
[2020-03-05] MEDS: ATORVASTATIN 10 MG TABLET PO (09:23)
[2020-03-05] MEDS: FINASTERIDE 5 MG TABLET PO (09:23)
[2020-03-05] MEDS: BETAMETHASONE/CLOTRIMAZOLE CR 15 GM TUBE 1 APPLIC TOPICAL ×2 (09:23→21:50)
[2020-03-05] MEDS: FUROSEMIDE 80 MG TABLET PO ×2 (09:23→18:00)
[2020-03-05] MEDS: PANTOPRAZOLE 40 MG TABLET PO (09:24)
[2020-03-05] MEDS: LORATADINE 10 MG TABLET PO (09:24)
[2020-03-05] MEDS: THERAPEUTIC MULTIVITAMINS/MINERALS TAB (*BKC) 1 TABLET PO (09:24)
[2020-03-05] MEDS: carvediloL 25 MG TABLET PO ×2 (09:24→21:49)
[2020-03-05] MEDS: DOCUSATE SODIUM 100 MG CAPSULE PO ×2 (09:28→21:48)
[2020-03-05] MEDS: HEPARIN SODIUM 5,000 UNITS/ML VIAL 5000 UNITS SUB-Q ×2 (09:28→21:50)
[2020-03-05 11:39] LABS: Glucose Point of Care 112 (65-105)
--- NOTE | 2020-03-05 12:47 | PM.IMPN ---
Progress Note: A&P Assessment and Plan (1) COVID-19: Code(s): U07.1 - COVID-19 Status: Acute Assessment and Plan: Patient tested negative 02/14/20 for COVID but now positive on 03/01/20 (done as a screening to go to the SNF; patient asymptomatic). Patient has been afebrile since admission. It is unclear when he was exposed or how long he has had COVID. His O2 requirement has been stable for many days. We did started Decadron given unclear how or when he might have contracted the virus. (2) Confusion: Code(s): R41.0 - Disorientation, unspecified Status: Acute Assessment and Plan: Patient confused 02/28. Labs, ABG and CXR okay. CT brain ordered but this also showing no acute changes. Symptoms improved after having HD yesterday. Could be COVID related but felt less likely. Plan for HD again today.03/05 (3) Acute respiratory failure with hypoxia: Code(s): J96.01 - Acute respiratory failure with hypoxia Status: Acute Assessment and Plan: Secondary to congestive heart failure. COVID test negative 02/14/20 but positive now. He does have evidence of aspiration with thin liquids. Hypoxia could be related to dysphagia/aspiration as well. Tunnel cath placed 02/22 and now on HD. Diet adjusted. (4) Acute exacerbation of congestive heart failure: Code(s): I50.9 - Heart failure, unspecified Status: Acute Assessment and Plan: Echo here revealed EF of 55% with diastolic dysfunction Grade I and moderate to severe with moderate MR. BNP 32K. CXR showing pulmonary edema. Started on diuretics with IV Bumex and po Metolazone per nephrology. Clinically better and CXR 02/28 looks better. We continued Jamal hose. We continued HD to control fluid status. Lasix resumed. (5) Chronic progressive renal failure, stage 4 (severe): Code(s): N18.4 - Chronic kidney disease, stage 4 (severe) Status: Chronic Assessment and Plan: Cr was in the mid-2 range in December. Creatinine 3.1 on admission and increased to 3.3 the next day. Cr running 3.3-3.6 range for many days but then 4.1-4.5 and climbing despite being off his diuretics (held 02/15). Renal sonogram showed no hydro but distended bladder and over 600 ml residual so cath placed. No change in Cr since Ahuja placed so less likely from obstructive uropathy. Renal biopsy on hold due to no significant elevation of autoimmune markers. Patient also mildly confused which could be related to the azotemia. With continued evidence of fluid overload and uremia, he was started dialysis 02/22 and will continue outpatient dialysis Wednesday//Wednesday. (6) Aortic stenosis: Onset Date: ~12/2019 Code(s): I35.0 - Nonrheumatic aortic (valve) stenosis Status: Acute Assessment and Plan: Echo showng moderate to severe with 1 cm2 valve area. Being followed by cardiology. (7) Chronic anemia: Code(s): D64.9 - Anemia, unspecified Status: Acute Assessment and Plan: Patient with chronic anemia mostly in the 10-11 prior to admission. Hgb had dropped into the 9 range but 11 now. [place] anemia of chronic disease with iron deficiency component as well. He completed IV iron x 5 days. (8) Hypertension: Code(s): I10 - Essential (primary) hypertension Status: Acute Assessment and Plan: Patient's blood pressure was monitored closely Blood pressure remained mostly well controlled. We continued current medications with Norvasc and Coreg. (9) Type 2 diabetes mellitus with peripheral neuropathy: Code(s): E11.42 - Type 2 diabetes mellitus with diabetic polyneuropathy Status: Acute Assessment and Plan: Last A1c 5.6 in June. The patient's blood glucose was monitored closely Glucose remains well controlled. Continue to monitor with AccuCheks covering with sliding scale. Hypoglycemia protocol available as needed. Continu
[2020-03-05 13:58] LABS: Glucose Point of Care 170 (65-105)
[2020-03-05] MEDS: INSULIN ASPART (*BKC) 100 UNITS/ML SUB-Q (18:02)
[2020-03-05 18:16] LABS: Glucose Point of Care 220 (65-105)
--- NOTE | 2020-03-05 21:30 | PC.NURSE ---
Pt was unable to receive dialysis today. Dialysis nurse stated they would add him on for dialysis tomorrow 03/06/20. Pt was returned to his room without any difficulty. will continue to monitor.
[2020-03-05] MEDS: CEFDINIR 300 MG CAPSULE PO (21:48)
[2020-03-05] MEDS: VITAMIN B COMPLEX CAPSULE 1 CAP PO (21:48)
[2020-03-05] MEDS: TAMSULOSIN HCL 0.4 MG CAPSULE PO (21:48)
[2020-03-05] MEDS: ACETAMINOPHEN 325 MG TABLET 650 MG PO (21:49)
[2020-03-06] VITALS (11 sets, daily range): BP systolic 112–146; BP diastolic 55–79; PULSE 56–70; RESP 16–22; TEMP 36–36.6; O2SAT 90–95
[2020-03-06] MEDS: GABAPENTIN 300 MG CAPSULE 600 MG PO ×3 (05:52→22:12)
[2020-03-06 06:55] LABS: Hematocrit 35.2 % (42.0-52.0); Hemoglobin 11.4 g/dL (14.0-18.0); Mean Corpuscular HGB Conc 32.4 g/dl (32-36); Mean Corpuscular Hemoglobin 31.5 pg (26-34); Mean Corpuscular Volume 97.2 fl (80-100); Mean Platelet Volume 11.2 fl (7.4-10.4); Platelet Count Result 143 k/mm3 (150-375); Red Blood Count 3.62 M/mm3 (4.6-6.20); Red Cell Distribution Width 14.9 % (11.5-14.5); White Blood Count 6.2 K/mm3 (4.5-10.0)
[2020-03-06 07:23] LABS: Albumin Level 3.2 g/dL (3.5-5.1); Anion Gap 10 mmol/L (8-16); Blood Urea Nitrogen 93 mg/dL (9-20); Calcium 9.1 mg/dL (8.4-10.2); Carbon Dioxide 26 mmol/L (22-30); Chloride 107 mmol/L (98-107); Estimated CRCL calculation 10 ml/min; Estimated Glomerular Filt Rate 9; Glucose 110 mg/dL (75-110); Phosphorus 4.1 mg/dL (2.5-4.5); Potassium 4.1 mmol/L (3.4-5.0); Sodium 143 mmol/L (137-145)
[2020-03-06 08:29] LABS: Glucose Point of Care 132 (65-105)
[2020-03-06] MEDS: PANTOPRAZOLE 40 MG TABLET PO (09:29)
[2020-03-06] MEDS: DEXAMETHASONE 2 MG TABLET 6 MG PO (09:30)
[2020-03-06] MEDS: ATORVASTATIN 10 MG TABLET PO (09:30)
[2020-03-06] MEDS: FINASTERIDE 5 MG TABLET PO (09:30)
[2020-03-06] MEDS: THERAPEUTIC MULTIVITAMINS/MINERALS TAB (*BKC) 1 TABLET PO (09:30)
[2020-03-06] MEDS: LORATADINE 10 MG TABLET PO (09:30)
[2020-03-06] MEDS: FUROSEMIDE 80 MG TABLET PO ×2 (09:30→17:53)
[2020-03-06] MEDS: carvediloL 25 MG TABLET PO ×2 (09:31→22:12)
[2020-03-06] MEDS: BETAMETHASONE/CLOTRIMAZOLE CR 15 GM TUBE 1 APPLIC TOPICAL ×2 (09:33→22:13)
[2020-03-06] MEDS: ACETAMINOPHEN 325 MG TABLET 650 MG PO ×2 (09:35→22:26)
[2020-03-06] MEDS: DOCUSATE SODIUM 100 MG CAPSULE PO ×2 (09:38→22:13)
[2020-03-06] MEDS: WATER FOR IRRIGATION, STERILE 1,000 ML BOTTLE 1000 ML (09:43)
[2020-03-06 13:15] LABS: Glucose Point of Care 198 (65-105)
--- NOTE | 2020-03-06 17:44 | PM.IMPN ---
Progress Note: A&P Assessment and Plan (1) COVID-19: Code(s): U07.1 - COVID-19 Status: Acute Assessment and Plan: Patient tested negative 02/14/20 for COVID but now positive on 03/01/20 (done as a screening to go to the [facility]; patient asymptomatic). Patient has been afebrile since admission. It is unclear when he was exposed or how long he has had COVID. His O2 requirement has been stable for many days. We did started Decadron given unclear how or when he might have contracted the virus. (2) Confusion: Code(s): R41.0 - Disorientation, unspecified Status: Acute Assessment and Plan: Patient confused 02/28. Labs, ABG and CXR okay. CT brain ordered but this also showing no acute changes. Symptoms improved after having HD yesterday. Could be COVID related but felt less likely. Plan for HD again .03/07 (3) Acute respiratory failure with hypoxia: Code(s): J96.01 - Acute respiratory failure with hypoxia Status: Acute Assessment and Plan: Secondary to congestive heart failure. COVID test negative 02/14/20 but positive now. He does have evidence of aspiration with thin liquids. Hypoxia could be related to dysphagia/aspiration as well. Tunnel cath placed 02/22 and now on HD. Diet adjusted. (4) Acute exacerbation of congestive heart failure: Code(s): I50.9 - Heart failure, unspecified Status: Acute Assessment and Plan: Echo here revealed EF of 55% with diastolic dysfunction Grade I and moderate to severe with moderate MR. BNP 32K. CXR showing pulmonary edema. . Clinically better and CXR 02/28 looks better after dialysis sessions We continued Jamal hose. We continued HD to control fluid status. Lasix resumed. (5) Chronic progressive renal failure, stage 4 (severe): Code(s): N18.4 - Chronic kidney disease, stage 4 (severe) Status: Chronic Assessment and Plan: Cr was in the mid-2 range in December. Creatinine 3.1 on admission and increased to 3.3 the next day. Cr running 3.3-3.6 range for many days but then 4.1-4.5 and climbing despite being off his diuretics (held 02/15). Renal sonogram showed no hydro but distended bladder and over 600 ml residual so cath placed. No change in Cr since Ahuja placed so less likely from obstructive uropathy. Patient also mildly confused which could be related to the azotemia. With continued evidence of fluid overload and uremia, he was started dialysis 02/22 and will continue outpatient dialysis Wednesday//Wednesday. (6) Aortic stenosis: Onset Date: ~12/2019 Code(s): I35.0 - Nonrheumatic aortic (valve) stenosis Status: Acute Assessment and Plan: Echo showng moderate to severe with 1 cm2 valve area. Being followed by cardiology. (7) Chronic anemia: Code(s): D64.9 - Anemia, unspecified Status: Acute Assessment and Plan: Patient with chronic anemia mostly in the 10-11 prior to admission. Hgb had dropped into the 9 range but 11 now. Graham anemia of chronic disease with iron deficiency component as well. He completed IV iron x 5 days. (8) Hypertension: Code(s): I10 - Essential (primary) hypertension Status: Acute Assessment and Plan: Patient's blood pressure was monitored closely Blood pressure remained mostly well controlled. We continued current medications with Norvasc and Coreg. (9) Type 2 diabetes mellitus with peripheral neuropathy: Code(s): E11.42 - Type 2 diabetes mellitus with diabetic polyneuropathy Status: Acute Assessment and Plan: Last A1c 5.6 in June. The patient's blood glucose was monitored closely Glucose remains well controlled. Continue to monitor with AccuCheks covering with sliding scale. Hypoglycemia protocol available as needed. Continue current treatment plan. (10) Benign prostatic hyperplasia: Code(s): N40.0 - Benign prostatic hyperplasia with
[2020-03-06] MEDS: INSULIN ASPART (*BKC) 100 UNITS/ML SUB-Q (17:52)
[2020-03-06] MEDS: HEPARIN SODIUM 5,000 UNITS/ML VIAL 5000 UNITS SUB-Q (17:53)
--- NOTE | 2020-03-06 18:10 | P.PNNP_ITS ---
Progress Note: A&P Assessment and Plan (1) KENNY (acute kidney injury): Code(s): N17.9 - Acute kidney failure, unspecified Status: Acute Assessment and Plan: * is this really KENNY or is this just progression of his known CKD?? -- leaning towards the latter * he looks euvolemic. * Potassium is fine. * He will get dialysis today. * Emergencies have led to initiating dialysis late this evening. (2) Chronic progressive renal failure, stage 4 (severe): Code(s): N18.4 - Chronic kidney disease, stage 4 (severe) Status: Chronic Assessment and Plan: * baseline creatinine runs around 2.5 - 2.8mg/dl * due to diabetes, hypertension, cardiac + vavlular heart disease (systolic + diastolic heart failure along with aortic stenosis) (3) Confusion: Code(s): R41.0 - Disorientation, unspecified Status: Acute Assessment and Plan: * Seems to wax and wan. * He is a bit more with it today. * Consider dementia as an underlying issue questions (4) Acute exacerbation of congestive heart failure: Code(s): I50.9 - Heart failure, unspecified Status: Acute Assessment and Plan: * Cardiology following * volume status looks pretty good right now. * Trying to keep systolic above 100 (5) Hypertension: Code(s): I10 - Essential (primary) hypertension Status: Acute Assessment and Plan: * BP is better. He is on carvedilol alone (6) Anemia: Code(s): D64.9 - Anemia, unspecified Status: Acute Assessment and Plan: * due to iron deficiency and underlying CKD * has been on Epogen with HD * 11. Will hold his Epogen. (7) UTI (urinary tract infection): Code(s): N39.0 - Urinary tract infection, site not specified Status: Acute Assessment and Plan: * Finished antibiotics (8) Diabetes: Code(s): E11.9 - Type 2 diabetes mellitus without complications Status: Chronic Assessment and Plan: * on acchecks * on SSI (9) COVID-19: Code(s): U07.1 - COVID-19 Status: Acute Assessment and Plan: COVID positive. Asymptomatic. Subjective Date/time seen: 03/06/20 18:10 Interval history: The patient is moaning. He has some irritation on his presacral area that the nurses are working with. He did not get dialysis yesterday because he became agitated and they were unable to do it. Will do his treatment today. Review of Systems Cardiovascular: Cardiovascular: Reports no additional cardiovascular complaints Respiratory: Respiratory: Reports no additional respiratory complaints Gastrointestinal: Gastrointestinal: Reports no additional gastrointestinal complaints Genitourinary: Genitourinary: Reports no additional male genitourinary complaints Exam Narrative: Exam Narrative: General: WD/WN male in NAD Heart: normal S1 and S2; 3/6 systolic ejection murmur Lungs: clear bilaterally Abdomen: soft, nontender, nondistended, positive bowel sounds Extremities: trace edema Skin: no rash or subcu nodules Objective Data Vital Signs Vital Signs: Vital Signs - 24 hr 03/05/20 20:00 03/05/20 21:49 03/06/20 00:00 Temperature 36.2 C L 36.2 C L Pulse Rate 60 60 60 Respiratory Rate 18 18 Blood Pressure 121/70 146/61 H Pulse Oximetry 95 90
--- NOTE | 2020-03-06 18:10 | PM.PNNEP ---
Progress Note: A&P Assessment and Plan (1) KENNY (acute kidney injury): Code(s): N17.9 - Acute kidney failure, unspecified Status: Acute Assessment and Plan: is this really KENNY or is this just progression of his known CKD?? -- leaning towards the latter he looks euvolemic. Potassium is fine. He will get dialysis today. Emergencies have led to initiating dialysis late this evening. (2) Chronic progressive renal failure, stage 4 (severe): Code(s): N18.4 - Chronic kidney disease, stage 4 (severe) Status: Chronic Assessment and Plan: baseline creatinine runs around 2.5 - 2.8mg/dl due to diabetes, hypertension, cardiac + vavlular heart disease (systolic + diastolic heart failure along with aortic stenosis) (3) Confusion: Code(s): R41.0 - Disorientation, unspecified Status: Acute Assessment and Plan: Seems to wax and wan. He is a bit more with it today. Consider dementia as an underlying issue questions (4) Acute exacerbation of congestive heart failure: Code(s): I50.9 - Heart failure, unspecified Status: Acute Assessment and Plan: Cardiology following volume status looks pretty good right now. Trying to keep systolic above 100 (5) Hypertension: Code(s): I10 - Essential (primary) hypertension Status: Acute Assessment and Plan: BP is better. He is on carvedilol alone (6) Anemia: Code(s): D64.9 - Anemia, unspecified Status: Acute Assessment and Plan: due to iron deficiency and underlying CKD has been on Epogen with HD 11. Will hold his Epogen. (7) UTI (urinary tract infection): Code(s): N39.0 - Urinary tract infection, site not specified Status: Acute Assessment and Plan: Finished antibiotics (8) Diabetes: Code(s): E11.9 - Type 2 diabetes mellitus without complications Status: Chronic Assessment and Plan: on acchecks on SSI (9) COVID-19: Code(s): U07.1 - COVID-19 Status: Acute Assessment and Plan: COVID positive. Asymptomatic. Subjective Date/time seen: 03/06/20 18:10 Interval history: The patient is moaning. He has some irritation on his presacral area that the nurses are working with. He did not get dialysis yesterday because he became agitated and they were unable to do it. Will do his treatment today. Review of Systems Cardiovascular: Cardiovascular: Reports no additional cardiovascular complaints Respiratory: Respiratory: Reports no additional respiratory complaints Gastrointestinal: Gastrointestinal: Reports no additional gastrointestinal complaints Genitourinary: Genitourinary: Reports no additional male genitourinary complaints Exam Narrative: Exam Narrative: General: WD/WN male in NAD Heart: normal S1 and S2; 3/6 systolic ejection murmur Lungs: clear bilaterally Abdomen: soft, nontender, nondistended, positive bowel sounds Extremities: trace edema Skin: no rash or subcu nodules Objective Data Vital Signs Vital Signs: Vital Signs - 24 hr 03/05/20 20:00 03/05/20 21:49 03/06/20 00:00 Temperature 36.2 C L 36.2 C L Pulse Rate 60 60 60 Respiratory Rate 18 18 Blood Pressure 121/70 146/61 H Pulse Oximetry 95 90 03/06/20 04:00 03/06/20 08:00 03/06/20 09:30 Temperature 36.6 C 36.3 C L Pulse Rate 59 L 61 Respiratory Rate 20 22 H Blood Pressure 137/65 134/59 L Pulse Oximetry 91 90 92 03/06/20 09:31 03/06/20 12:00 03/06/20 16:00 Temperature 36.2 C L 36.1 C L Pulse Rate 60 70 70 Respiratory Rate 18 18 Blood Pressure 112/55 L 139/66 Pulse Oximetry 95 92 Intake/Output Intake/Output: Intake & Output 03/03/20 03/04/20 03/05/20 03/06/20 23:59 23:59 23:59 23:59 Intake Total 630 410 540 290 Output Total 427 461 7271 350 Balance 330 -140 -510 -60 Meds/Results Medications: Active Medications Generic Name Dose Route Start Last Admin
[2020-03-06 18:20] LABS: Glucose Point of Care 213 (65-105)
[2020-03-06] MEDS: TAMSULOSIN HCL 0.4 MG CAPSULE PO (22:12)
[2020-03-06] MEDS: VITAMIN B COMPLEX CAPSULE 1 CAP PO (22:13)
[2020-03-06] MEDS: CEFDINIR 300 MG CAPSULE PO (22:28)
[2020-03-06 22:34] LABS: Glucose Point of Care 201 (65-105)
[2020-03-07] VITALS (30 sets, daily range): BP systolic 61–121; BP diastolic 24–65; PULSE 57–73; RESP 12–23; TEMP 35.9–36.8; O2SAT 46–100; BMI 23.1
--- NOTE | 2020-03-07 03:08 | PM.CCN ---
Critical Care Event Note Summary Code activated: Yes Narrative: 03/07/2020 at 1:55 a.m. While I was on the medical floor evaluating the patient nursing staff called out that the patient was having low oxygen saturations. I went into the room to find the patient with agonal respirations with oxygen saturations of 46%. The patient had no response to sternal rub. The patient's blood pressure that had been soft after dialysis had improved to 105 systolic. The patient is still at a palpable pulse. A code blue was called as the patient needed rapid intervention to prevent further decline. The patient was intubated at bedside and did not require sedation. The patient was transferred to the ICU and placed on ventilator. Biliary settings were a.c./CMV tidal volume 450 peep of 5 rate of 16 with 100% FiO2. Even after arrival to the ICU the patient did not seem to be a need discomfort and was ventilating easily. The patient's blood pressures were stable 124/68. GENERAL: Acute on chronically ill-appearing, cachectic HEENT: The dry mucous membranes, edentulous CARDIOVASCULAR: Regular rate, 2+ palpable carotid RESPIRATORY: Clear to auscultation after intubation without breath sounds over epigastrium ABDOMEN: Concave, hypoactive bowel sounds INTEGUMENT: Generalized pallor, cool to touch NEUROLOGIC: Unresponsive to painful stimuli initially, no gag reflex at intubation, following intubation the patient eyes are equal mid size and reactive, he has now moving bilateral upper extremities PSYCHIATRIC: Unresponsive EXTREMITIES: No clubbing, no edema, positive cyanosis : Ahuja catheter in place during draining dark cloudy urine Assessment and plan: 1. Acute hypoxic respiratory failure in the setting of renal failure and COVID 19: Patient has been intubated and moved to the ICU. The patient's case has been discussed with the marketing proposal specialist. Post intubation ABG has been ordered. Post intubation chest x-ray was reviewed and demonstrate ET tube will at the level of the the clavicles ET tube was advanced 2 cm measuring 27.5 at the lip. Previously noted infiltrates appears slightly improved from prior. OG was in appropriate position. CBC, CMP, lactic acid and troponin have been ordered and are pending. Patient has been placed on sedation with fentanyl and Versed. 2. hypotension: Resolved after intubation. Maintain maps greater than 65. 80 minutes spent in critical care activities. The this case had a high probability of a clinically significant, sudden, or life threatening deterioration of this patient's condition which required my full and direct attention, intervention and personal management. Critical care time: 75 - 104 mins
[2020-03-07 03:19] LABS: Hematocrit 37.9 % (42.0-52.0); Hemoglobin 12.4 g/dL (14.0-18.0); Immature Granulocyte Absolute 0.12 K/mm3 (0.00-0.031); Immature Granulocyte Percent A 1.7 % (0-0.5); Lymphocytes Percent Auto 5.5 % (18.3-44.2); Mean Corpuscular HGB Conc 32.7 g/dl (32-36); Mean Corpuscular Hemoglobin 31.9 pg (26-34); Mean Corpuscular Volume 97.4 fl (80-100); Mean Platelet Volume 11.1 fl (7.4-10.4); Monocytes Absolute Auto 0.4 K/mm3 (0.1-0.6); Neutrophils Absolute Auto 6.3 K/mm3 (1.3-6.7); Neutrophils Percent Auto 86.8 % (45.5-73.1); Platelet Count Result 160 k/mm3 (150-375); Red Blood Count 3.89 M/mm3 (4.6-6.20); Red Cell Distribution Width 15.1 % (11.5-14.5); White Blood Count 7.2 K/mm3 (4.5-10.0)
[2020-03-07] MEDS: FENTANYL 2,500MCG/NS250ML(*CRX 2,500 MCG/250 ML BAG IV CONT (03:20)
--- NOTE | 2020-03-07 03:25 | PC.NURSE ---
Pt returned to room early, unable to complete dialysis to low BP 60s/30s. When pt returned to room, aide took vitals at 0150. O2 sat at 40% on 7L HFNC. Hospitalist on floor joined RN in room, pulse present but pt showed minimal respiratory effort. Haresh Glover called at 0151, pt intubated and sent to ICU 11. Report given to LAM Toure.
[2020-03-07 03:26] LABS: Lactic Acid Reflex 1.9 mmol/L (0.7-2.1)
[2020-03-07 03:27] LABS: Alanine Aminotransferase 25 U/L (4-50); Albumin Level 3.7 g/dL (3.5-5.1); Alkaline Phosphatase 62 U/L (38-126); Anion Gap 10 mmol/L (8-16); Aspartate Amino Transferase 53 U/L (17-59); Blood Urea Nitrogen 83 mg/dL (9-20); Calcium 9.3 mg/dL (8.4-10.2); Carbon Dioxide 30 mmol/L (22-30); Chloride 103 mmol/L (98-107); Estimated CRCL calculation 12 ml/min; Estimated Glomerular Filt Rate 11; Glucose 179 mg/dL (75-110); Potassium 3.8 mmol/L (3.4-5.0); Sodium 143 mmol/L (137-145)
--- NOTE | 2020-03-07 03:33 | WPDPROCEDUR ---
Procedures Intubation Intubation Date: 03/07/20 Intubation Time: 02:02 Consent: Performed emergently A pre-procedural Time-Out was completed immediately before starting the procedure and confirmed: Patient Identification, Site, Procedure, Patient Position and the Availability of Requisite Equipment: No Sedative: none Laryngoscope: Jadyn (4) ET tube size: 7.5 Tube secured depth (cm): 26 Tube secured location: lips Tube placement confirmation: visualized tube passing through cords, equal breath sounds bilaterally, no breath sounds over epigastrium and confirmation by capnometry Patient tolerated procedure: well Intubation complications: none
[2020-03-07 03:43] LABS: Troponin I 0.058 ng/mL (0.000-0.034)
[2020-03-07 03:44] LABS: Alveolar/Arterial O2 Gradient 460.1 mmHg; Base Excess ABG -1.3 mEq/l (+/-2.0); Carboxyhemoglobin 0.1 % THb (0-2.0); Fractional Inspired Oxygen 100 %; Methemoglobin ABG 0.2 %THb (0-1.5); Oxygen Content ABG 18.1 %vol (16.0-22.0); Oxygen Saturation ABG 99.6 % (95.0-100.0); Oxyhemoglobin 98.3 % THb (90.0-100.0); PCO2 ABG 28.4 mmHg (35.0-45.0); PO2 ABG 224.5 mmHg (80.0-100.0); PO2 FiO2 Ratio Arterial Blood 2.24 %; Reduced Hemoglobin 1.4 %THb (0-5.0); Total Hemoglobin 12.7 g/dL (12.0-18.0); pH ABG 7.486 (7.350-7.450)
[2020-03-07 03:45] LABS: Arterial Blood Gas Vent Mode CMV; Arterial Blood Gas Ventilator rate 16 /MIN; Device VENTILATOR; Modified Allen's Test Pass; Site Drawn RIGHT RADIAL
[2020-03-07 03:46] LABS: Arterial Blood Gas PEEP 5 cmH2O; Arterial Blood Gas Tidal Volume 450 ml
[2020-03-07] MEDS: SODIUM CHLORIDE 0.9% IV 500 ML 999 ML IV CONT (06:40)
[2020-03-07 06:53] LABS: Glucose Point of Care 168 (65-105)
[2020-03-07] MEDS: FAMOTIDINE 20 MG/2 ML VIAL IV PUSH ×2 (07:51→22:00)
--- NOTE | 2020-03-07 08:23 | PM.PNCARD ---
Progress Note: A&P Assessment and Plan (1) End stage renal disease: Code(s): N18.6 - End stage renal disease Status: Acute Assessment and Plan: Hemodialysis T//Sat. Nephrology following. (2) Hypertension: Code(s): I10 - Essential (primary) hypertension Status: Acute Assessment and Plan: Due to hypotension with hemodialysis, Coreg discontinued. (3) Aortic stenosis: Onset Date: ~12/2019 Code(s): I35.0 - Nonrheumatic aortic (valve) stenosis Status: Acute Assessment and Plan: Stable with mod-severe aortic stenosis. No urgent need to replace aortic valve. (4) Diastolic heart failure: Code(s): I50.30 - Unspecified diastolic (congestive) heart failure Status: Acute Assessment and Plan: Acute on chronic. Stable. Due to worsening kidney function with diuretics and underlying DM, hypertension, patient began hemodialysis during this hospitalization. (5) COVID-19: Code(s): U07.1 - COVID-19 Status: Acute Assessment and Plan: Unclear when or how he contracted COVID. His CXR shows patchy infiltrate since admission, so could he have had a false negative PCR test then? Essentially asymptomatic except fatigue. Supportive treatment as per hospitalist. (6) Respiratory failure: Code(s): J96.90 - Respiratory failure, unspecified, unspecified whether with hypoxia or hypercapnia Status: Acute Assessment and Plan: On Ventilator. Managed by weight recorder. Was it due to aspiration or COVID? Subjective Date/time seen: 03/07/20 08:23 Patient had hemodialysis last night. Then had low BP and agonal breathing, a cade farmer was called, he was intubated for respiratory failure and BP stabilized after that. Currently on ventilator. Exam Const: General: cooperative, no acute distress and confusion; No comfortable Resp: Auscultation: clear to auscultation bilaterally, no crackles, no rales, no rhonchi and no wheezes Cardio: Jugular venous distension: no JVD Rate: regular rate Rhythm: regular rhythm Heart sounds: Murmur heart sound present (III/ systolic murmur RICS) Peripheral pulses: dorsalis pedis present GI: GI Palp: No abdominal tenderness and Yes Soft to palpation Neuro: General: oriented to person, oriented to place and oriented to time Extrem: Right lower extremity: no edema Left lower extremity: no edema Objective Data Vital Signs Vital Signs: Vital Signs - 24 hr 03/06/20 09:30 03/06/20 09:31 03/06/20 12:00 Temperature 97.1 F L Pulse Rate 60 70 Respiratory Rate 18 Blood Pressure 112/55 L Pulse Oximetry 92 95 03/06/20 16:00 03/06/20 20:00 03/06/20 22:12 Temperature 97.0 F L 97.4 F L Pulse Rate 70 58 L 68 Respiratory Rate 18 18 Blood Pressure 139/66 127/79 Pulse Oximetry 92 90 03/06/20 23:42 03/07/20 00:00 03/07/20 00:15 Temperature 98 F Pulse Rate 56 L 62 Respiratory Rate 16 Blood Pressure 128/60 108/39 L 72/45 L Pulse Oximetry 03/07/20 00:30 03/07/20 00:45 03/07/20 01:00 Temperature Pulse Rate 63 73 60 Respiratory Rate Blood Pressure 95/36 L 110/62 61/24 L Pulse Oximetry 03/07/20 01:15 03/07/20 02:15 03/07/20 02:17 Temperature 98 F Pulse Rate 57 L 61 64 Respiratory Rate 16 Blood Pressure 71/24 L 107/47 L Pulse Oximetry 100 46 L 03/07/20 03:19 03/07/20 03:20 03/07/20 04:00 Temperature 98.2 F Pulse Rate 65 65 61 Respiratory Rate 22 H 22 H 20 Blood Pressure 111/60 Pulse Oximetry 100 03/07/20 05:31 03/07/20 06:00 03/07/20 07:42 Temperature 97.7 F Pulse Rate 59 L 58 L 57 L Respiratory Rate 23 H 12 Blood Pressure 86/49 L 92/48 L Pulse Oximetry 100 97 98 Intake/Output Intake/Output: Intake & Output 03/04/20 03/05/20 03/06/20 03/07/20 23:59 23:59 23:59 23:59 Intake Total 410 540 440 500 Output Total 550 4251 013 7042 [facility] -140 -510 -460 -711 Meds/Results Medications: Active Medications Generic Name Do
[2020-03-07] MEDS: HEPARIN SODIUM 5,000 UNITS/ML VIAL 5000 UNITS SUB-Q ×2 (09:36→22:00)
[2020-03-07] MEDS: BETAMETHASONE/CLOTRIMAZOLE CR 15 GM TUBE 1 APPLIC TOPICAL ×2 (09:37→21:56)
[2020-03-07] MEDS: FINASTERIDE 5 MG TABLET PO (09:38)
[2020-03-07] MEDS: DEXAMETHASONE 2 MG TABLET 6 MG PO (09:38)
[2020-03-07] MEDS: ATORVASTATIN 10 MG TABLET PO (09:38)
[2020-03-07 12:18] LABS: Glucose Point of Care 191 (65-105)
--- NOTE | 2020-03-07 12:30 | WPDCNINT ---
Assessment and Plan Assessment and plan (1) Respiratory failure: Code(s): J96.90 - Respiratory failure, unspecified, unspecified whether with hypoxia or hypercapnia Status: Acute Assessment and Plan: Patient with acute respiratory failure last night requiring intubation on 03/07/2020 -chest x-ray and ABGs reviewed. Patient also found unresponsive, dialysis was done on 03/06/2020, after which patient was hypotensive, -could be related to unresponsive episode secondary to hypotension with hypoxia requiring intubation. -low tidal volume strategy, will wean FiO2 as tolerated -will start bronchodilators -, maintain RASS of 0 to -2. (2) COVID-19: Code(s): U07.1 - COVID-19 Status: Acute Assessment and Plan: On 03/01/2020: Received Remdesivir, currently on dexamethasone -continue airborne, droplet, contact isolation (3) Diabetes: Code(s): E11.9 - Type 2 diabetes mellitus without complications Status: Chronic Assessment and Plan: Continue sliding scale insulin (4) Hypotension: Code(s): I95.9 - Hypotension, unspecified Status: Acute Assessment and Plan: Likely related to dialysis, -will add midodrine -continue to monitor blood pressures, if the droplet give albumin (5) Acute exacerbation of congestive heart failure: Code(s): I50.9 - Heart failure, unspecified Status: Acute Assessment and Plan: Echocardiogram showed EF of 55% with diastolic grade 1 dysfunction, moderate to severe with moderate MR. -patient gets dialyzed for volume overload. Will hold Lasix for now hypotension (6) Chronic progressive renal failure, stage 4 (severe): Code(s): N18.4 - Chronic kidney disease, stage 4 (severe) Status: Chronic Assessment and Plan: Patient presented with acute kidney injury with progression of his known chronic kidney disease. Patient was started on dialysis after dialysis catheter was placed by surgery this admission -dialysis per Nephrology (7) Aortic stenosis: Onset Date: ~12/2019 Code(s): I35.0 - Nonrheumatic aortic (valve) stenosis Status: Acute Assessment and Plan: Cardiology following the patient for severe aortic stenosis and moderate MR (8) DVT prophylaxis: Code(s): Z29.9 - Encounter for prophylactic measures, unspecified Status: Acute Assessment and Plan: Heparin subcu (9) Dietary counseling and surveillance: Code(s): Z71.3 - Dietary counseling and surveillance Status: Acute Assessment and Plan: Will start tube feeds Additional Plan D/w Tarah, updated with patient's condition and plan of care. I explained to her the reason patient is been the ICU secondary to respiratory arrest requiring intubation and mechanical ventilation. I answered all questions Code status: Full code Critical care time spent:46 minutes Due to a high probability of clinically significant, life threatening deterioration, the patient required my highest level of preparedness to intervene emergently and I personally spent this critical care time directly and personally managing the patient. This critical care time included obtaining a history; examining the patient; pulse oximetry; ordering and review of studies; arranging urgent treatment with development of a management plan; evaluation of patient's response to treatment; frequent reassessment; and discussions with other providers. It was exclusive of separately billable procedures and treating other patients and teaching time. Please see Assessment and Plan section and the rest of the note for further information on patient assessment and treatment Slitting Machine Operator Consult Note Consult date: 03/07/20 Time Seen: 07:01 Reason for consult: Acute respiratory failure requiring intubation on 05/08/2019: Regional disease on dialysis, moderate to severe aortic stenosis HPI: Dell Leon Sr. is a 85 year old male with past medical histo
--- NOTE | 2020-03-07 13:35 | P.PNNP_ITS ---
Progress Note: A&P Assessment and Plan (1) KENNY (acute kidney injury): Code(s): N17.9 - Acute kidney failure, unspecified Status: Acute Assessment and Plan: * is this really KENNY or is this just progression of his known CKD?? -- leaning towards the latter * he looks euvolemic. * Potassium is fine. * he is due for dialysis tomorrow. (2) Chronic progressive renal failure, stage 4 (severe): Code(s): N18.4 - Chronic kidney disease, stage 4 (severe) Status: Chronic Assessment and Plan: * baseline creatinine runs around 2.5 - 2.8mg/dl * due to diabetes, hypertension, cardiac + vavlular heart disease (systolic + diastolic heart failure along with aortic stenosis) (3) Confusion: Code(s): R41.0 - Disorientation, unspecified Status: Acute Assessment and Plan: * Seems to wax and wan. * He is sedated and on the ventilator now. (4) Acute exacerbation of congestive heart failure: Code(s): I50.9 - Heart failure, unspecified Status: Acute Assessment and Plan: * Cardiology following * volume status looks pretty good right now. * Trying to keep systolic above 100 (5) Hypertension: Code(s): I10 - Essential (primary) hypertension Status: Acute Assessment and Plan: * BP is better. He is on carvedilol alone (6) Anemia: Code(s): D64.9 - Anemia, unspecified Status: Acute Assessment and Plan: * due to iron deficiency and underlying CKD * has been on Epogen with HD * 11. Will hold his Epogen. (7) UTI (urinary tract infection): Code(s): N39.0 - Urinary tract infection, site not specified Status: Acute Assessment and Plan: * Finished antibiotics (8) Diabetes: Code(s): E11.9 - Type 2 diabetes mellitus without complications Status: Chronic Assessment and Plan: * on acchecks * on SSI (9) COVID-19: Code(s): U07.1 - COVID-19 Status: Acute Assessment and Plan: COVID positive. Asymptomatic. Subjective Date/time seen: 03/07/20 13:35 Interval history: The patient Had dialysis yesterday. The and his blood pressure dropped and he was taken off the machine. He was stable after all was done. 1Hour later the patient developed shortness of breath and needed to moved to [facility] ICU and now he is intubated. Review of Systems Review of Systems: ROS unobtainable: Yes unobtainable due to medical condition Exam Narrative: Exam Narrative: General: WD/WN male in NAD Heart: normal S1 and S2; 3/6 systolic ejection murmur Lungs: Coarse breath sounds Abdomen: soft, nontender, nondistended, positive bowel sounds Extremities: trace edema Skin: no rash or subcu nodules Objective Data Vital Signs Vital Signs: Vital Signs - 24 hr 03/06/20 16:00 03/06/20 20:00 03/06/20 22:12 Temperature 36.1 C L 36.3 C L Pulse Rate 70 58 L 68 Respiratory Rate 18 18 Blood Pressure 139/66 127/79 Pulse Oximetry 92 90 03/06/20 23:42 03/07/20 00:00 03/07/20 00:15 Temperature 36.6 C Pulse Rate 56 L 62 Respiratory Rate 16 Blood Pressure 128/60 108/39 L 72/45 L Pulse Oximetry 03/07/20 00:30 03/07/20 00:45 03/07/20 01:00 Temperature Pulse Rate
--- NOTE | 2020-03-07 13:35 | PM.PNNEP ---
Progress Note: A&P Assessment and Plan (1) KENNY (acute kidney injury): Code(s): N17.9 - Acute kidney failure, unspecified Status: Acute Assessment and Plan: is this really KENNY or is this just progression of his known CKD?? -- leaning towards the latter he looks euvolemic. Potassium is fine. he is due for dialysis tomorrow. (2) Chronic progressive renal failure, stage 4 (severe): Code(s): N18.4 - Chronic kidney disease, stage 4 (severe) Status: Chronic Assessment and Plan: baseline creatinine runs around 2.5 - 2.8mg/dl due to diabetes, hypertension, cardiac + vavlular heart disease (systolic + diastolic heart failure along with aortic stenosis) (3) Confusion: Code(s): R41.0 - Disorientation, unspecified Status: Acute Assessment and Plan: Seems to wax and wan. He is sedated and on the ventilator now. (4) Acute exacerbation of congestive heart failure: Code(s): I50.9 - Heart failure, unspecified Status: Acute Assessment and Plan: Cardiology following volume status looks pretty good right now. Trying to keep systolic above 100 (5) Hypertension: Code(s): I10 - Essential (primary) hypertension Status: Acute Assessment and Plan: BP is better. He is on carvedilol alone (6) Anemia: Code(s): D64.9 - Anemia, unspecified Status: Acute Assessment and Plan: due to iron deficiency and underlying CKD has been on Epogen with HD 11. Will hold his Epogen. (7) UTI (urinary tract infection): Code(s): N39.0 - Urinary tract infection, site not specified Status: Acute Assessment and Plan: Finished antibiotics (8) Diabetes: Code(s): E11.9 - Type 2 diabetes mellitus without complications Status: Chronic Assessment and Plan: on acchecks on SSI (9) COVID-19: Code(s): U07.1 - COVID-19 Status: Acute Assessment and Plan: COVID positive. Asymptomatic. Subjective Date/time seen: 03/07/20 13:35 Interval history: The patient Had dialysis yesterday. The and his blood pressure dropped and he was taken off the machine. He was stable after all was done. 1Hour later the patient developed shortness of breath and needed to moved to the ICU and now he is intubated. Review of Systems Review of Systems: ROS unobtainable: Yes unobtainable due to medical condition Exam Narrative: Exam Narrative: General: WD/WN male in NAD Heart: normal S1 and S2; 3/6 systolic ejection murmur Lungs: Coarse breath sounds Abdomen: soft, nontender, nondistended, positive bowel sounds Extremities: trace edema Skin: no rash or subcu nodules Objective Data Vital Signs Vital Signs: Vital Signs - 24 hr 03/06/20 16:00 03/06/20 20:00 03/06/20 22:12 Temperature 36.1 C L 36.3 C L Pulse Rate 70 58 L 68 Respiratory Rate 18 18 Blood Pressure 139/66 127/79 Pulse Oximetry 92 90 03/06/20 23:42 03/07/20 00:00 03/07/20 00:15 Temperature 36.6 C Pulse Rate 56 L 62 Respiratory Rate 16 Blood Pressure 128/60 108/39 L 72/45 L Pulse Oximetry 03/07/20 00:30 03/07/20 00:45 03/07/20 01:00 Temperature Pulse Rate 63 73 60 Respiratory Rate Blood Pressure 95/36 L 110/62 61/24 L Pulse Oximetry 03/07/20 01:15 03/07/20 02:15 03/07/20 02:17 Temperature 36.6 C Pulse Rate 57 L 61 64 Respiratory Rate 16 Blood Pressure 71/24 L 107/47 L Pulse Oximetry 100 46 L 03/07/20 03:19 03/07/20 03:20 03/07/20 04:00 Temperature 36.8 C Pulse Rate 65 65 61 Respiratory Rate 22 H 22 H 20 Blood Pressure 111/60 Pulse Oximetry 100 03/07/20 05:31 03/07/20 06:00 03/07/20 07:42 Temperature 36.5 C Pulse Rate 59 L 58 L 57 L Respiratory Rate 23 H 12 Blood Pressure 86/49 L 92/48 L Pulse Oximetry 100 97 98 03/07/20 08:00 03/07/20 09:10 03/07/20 09:50 Temperature Pulse Rate 58 L 60 60 Respiratory Rate 1
[2020-03-07] MEDS: GABAPENTIN 300 MG CAPSULE 600 MG PO ×2 (14:35→22:05)
[2020-03-07] MEDS: MIDODRINE HCL 2.5 MG TABLET 5 MG PO ×2 (14:35→16:48)
--- NOTE | 2020-03-07 16:21 | PM.IMPN ---
Progress Note: A&P Assessment and Plan (1) COVID-19: Code(s): U07.1 - COVID-19 Status: Acute Assessment and Plan: Patient tested negative 02/14/20 for COVID but now positive on 03/01/20 (done as a screening to go to the [facility]; patient asymptomatic). Patient has been afebrile since admission. It is unclear when he was exposed or how long he has had COVID. His O2 requirement has been stable for many days. started Decadron given unclear how or when he might have contracted the virus. (2) Confusion: Code(s): R41.0 - Disorientation, unspecified Status: Acute Assessment and Plan: Patient confused 02/28. Labs, ABG and CXR okay. CT brain ordered but this also showing no acute changes. Symptoms improved after having HD 03/04. Could be COVID related but felt less likely. Plan for HD again 03/06 pm with some hypotension that rebounded (3) Acute respiratory failure with hypoxia: Code(s): J96.01 - Acute respiratory failure with hypoxia Status: Acute Assessment and Plan: Secondary to congestive heart failure. COVID test negative 02/14/20 but positive now. He does have evidence of aspiration with thin liquids. Hypoxia could be related to dysphagia/aspiration as well. Tunnel cath placed 02/22 and now on HD. Diet adjusted. Prog[facility], ? covid,chf, or aspiration (4) Acute exacerbation of congestive heart failure: Code(s): I50.9 - Heart failure, unspecified Status: Acute Assessment and Plan: Echo here revealed EF of 55% with diastolic dysfunction Grade I and moderate to severe with moderate MR. BNP 32K. CXR showing pulmonary edema. . Clinically better and CXR 02/28 looks better after dialysis sessions We continued Jamal hose. We continued HD to control fluid status. Lasix resumed. (5) Chronic progressive renal failure, stage 4 (severe): Code(s): N18.4 - Chronic kidney disease, stage 4 (severe) Status: Chronic Assessment and Plan: Cr was in the mid-2 range in December. Creatinine 3.1 on admission and increased to 3.3 the next day. Cr running 3.3-3.6 range for many days but then 4.1-4.5 and climbing despite being off his diuretics (held 02/15). Renal sonogram showed no hydro but distended bladder and over 600 ml residual so cath placed. No change in Cr since Ahuja placed so less likely from obstructive uropathy. Patient also mildly confused which could be related to the azotemia. With continued evidence of fluid overload and uremia, he was started dialysis 02/22 and will continue outpatient dialysis Wednesday//Wednesday. (6) Aortic stenosis: Onset Date: ~12/2019 Code(s): I35.0 - Nonrheumatic aortic (valve) stenosis Status: Acute Assessment and Plan: Echo showng moderate to severe with 1 cm2 valve area. Being followed by cardiology. (7) Chronic anemia: Code(s): D64.9 - Anemia, unspecified Status: Acute Assessment and Plan: Patient with chronic anemia mostly in the 10-11 prior to admission. Hgb had dropped into the 9 range but 11 now. Bradford anemia of chronic disease with iron deficiency component as well. He completed IV iron x 5 days. (8) Hypertension: Code(s): I10 - Essential (primary) hypertension Status: Acute Assessment and Plan: Patient's blood pressure was monitored closely Blood pressure remained mostly well controlled. We continued current medications but now on hold after hypotension 03/06 (9) Type 2 diabetes mellitus with peripheral neuropathy: Code(s): E11.42 - Type 2 diabetes mellitus with diabetic polyneuropathy Status: Acute Assessment and Plan: Last A1c 5.6 in June. The patient's blood glucose was monitored closely Glucose remains well controlled. Continue to monitor with AccuCheks covering with sliding scale. Hypoglycemia protocol available as needed. C
[2020-03-07 18:20] LABS: Glucose Point of Care 175 (65-105)
[2020-03-07] MEDS: ALBUTEROL SULFATE NEB 2.5 MG/0.5 ML INH INHALATION (20:27)
[2020-03-07] MEDS: IPRATROPIUM BR 0.02% INH SOLN 0.5 MG/2.5 ML VIAL INHALATION (20:27)
[2020-03-08] VITALS (27 sets, daily range): BP systolic 90–147; BP diastolic 52–66; PULSE 59–69; RESP 14–19; TEMP 35.9–36.8; O2SAT 93–100
[2020-03-08 01:14] LABS: Glucose Point of Care 131 (65-105)
[2020-03-08] MEDS: ALBUTEROL SULFATE NEB 2.5 MG/0.5 ML INH INHALATION ×4 (01:49→19:33)
[2020-03-08] MEDS: IPRATROPIUM BR 0.02% INH SOLN 0.5 MG/2.5 ML VIAL INHALATION ×4 (01:49→19:33)
[2020-03-08 04:58] LABS: Alveolar/Arterial O2 Gradient 220.4 mmHg; Base Excess ABG -1.8 mEq/l (+/-2.0); Carboxyhemoglobin 0.3 % THb (0-2.0); HCO3 ABG 21.7 mEq/l (22.0-26.0); Methemoglobin ABG 0.3 %THb (0-1.5); Oxygen Content ABG 17.3 %vol (16.0-22.0); Oxygen Saturation ABG 97.7 % (95.0-100.0); Oxyhemoglobin 96.2 % THb (90.0-100.0); PCO2 ABG 33.1 mmHg (35.0-45.0); PO2 ABG 98.9 mmHg (80.0-100.0); PO2 FiO2 Ratio Arterial Blood 1.98 %; Reduced Hemoglobin 3.2 %THb (0-5.0); Total Hemoglobin 12.7 g/dL (12.0-18.0); pH ABG 7.434 (7.350-7.450)
[2020-03-08 05:03] LABS: Fractional Inspired Oxygen 40 %
[2020-03-08 05:04] LABS: Device VENTILATOR; Modified Allen's Test Pass; Site Drawn RIGHT RADIAL
[2020-03-08 05:09] LABS: Arterial Blood Gas PEEP 5 cmH2O; Arterial Blood Gas Tidal Volume 450 ml; Arterial Blood Gas Vent Mode CMV; Arterial Blood Gas Ventilator rate 12 /MIN
[2020-03-08 05:23] LABS: Hematocrit 35.7 % (42.0-52.0); Hemoglobin 11.6 g/dL (14.0-18.0); Mean Corpuscular HGB Conc 32.5 g/dl (32-36); Mean Corpuscular Hemoglobin 31.5 pg (26-34); Mean Platelet Volume 10.8 fl (7.4-10.4); Platelet Count Result 151 k/mm3 (150-375); Red Blood Count 3.68 M/mm3 (4.6-6.20); Red Cell Distribution Width 15.4 % (11.5-14.5); White Blood Count 8.4 K/mm3 (4.5-10.0)
[2020-03-08 05:52] LABS: Anion Gap 9 mmol/L (8-16); Blood Urea Nitrogen 104 mg/dL (9-20); Calcium 8.4 mg/dL (8.4-10.2); Carbon Dioxide 27 mmol/L (22-30); Chloride 104 mmol/L (98-107); Estimated CRCL calculation 8 ml/min; Estimated Glomerular Filt Rate 7; Glucose 168 mg/dL (75-110); Magnesium 2.7 mg/dL (1.6-2.3); Phosphorus 6.9 mg/dL (2.5-4.5); Potassium 4.2 mmol/L (3.4-5.0); Sodium 140 mmol/L (137-145)
[2020-03-08] MEDS: GABAPENTIN 300 MG CAPSULE 600 MG PO ×3 (06:52→22:15)
[2020-03-08 06:59] LABS: Glucose Point of Care 168 (65-105)
[2020-03-08] MEDS: DEXAMETHASONE 2 MG TABLET 6 MG PO (08:50)
[2020-03-08] MEDS: ATORVASTATIN 10 MG TABLET PO (08:51)
[2020-03-08] MEDS: BETAMETHASONE/CLOTRIMAZOLE CR 15 GM TUBE 1 APPLIC TOPICAL ×2 (08:52→22:15)
[2020-03-08] MEDS: MIDODRINE HCL 2.5 MG TABLET 5 MG PO ×3 (08:53→17:36)
[2020-03-08] MEDS: FAMOTIDINE 20 MG/2 ML VIAL IV PUSH ×2 (08:53→22:15)
[2020-03-08] MEDS: FINASTERIDE 5 MG TABLET PO (08:53)
[2020-03-08] MEDS: HEPARIN SODIUM 5,000 UNITS/ML VIAL 5000 UNITS SUB-Q ×2 (08:53→22:15)
--- NOTE | 2020-03-08 11:43 | WPDINTPN ---
Progress Note: A&P Assessment and Plan (1) Respiratory failure: Code(s): J96.90 - Respiratory failure, unspecified, unspecified whether with hypoxia or hypercapnia Status: Acute Assessment and Plan: Patient with acute respiratory failure last night requiring intubation on 03/07/2020 -chest x-ray and ABGs reviewed. Patient also found unresponsive, dialysis was done on 03/06/2020, after which patient was hypotensive, -could be related to unresponsive episode secondary to hypotension with hypoxia requiring intubation. -low tidal volume strategy, will wean FiO2 as tolerated, peep of 5 -continue bronchodilators -fentanyl Versed infusion, maintain RASS of 0 to -2. -will discontinue sedation, for the with patient. Once he is more awake will place him on SBT and evaluate for extubation (2) COVID-19: Code(s): U07.1 - COVID-19 Status: Acute Assessment and Plan: On 03/01/2020: Received Remdesivir, currently on dexamethasone -continue airborne, droplet, contact isolation (3) Diabetes: Code(s): E11.9 - Type 2 diabetes mellitus without complications Status: Chronic Assessment and Plan: Continue sliding scale insulin (4) Hypotension: Code(s): I95.9 - Hypotension, unspecified Status: Acute Assessment and Plan: Likely related to dialysis, -continue midodrine, with improved blood pressures -continue to monitor blood pressures, if the droplet give albumin (5) Acute exacerbation of congestive heart failure: Code(s): I50.9 - Heart failure, unspecified Status: Acute Assessment and Plan: Echocardiogram showed EF of 55% with diastolic grade 1 dysfunction, moderate to severe with moderate MR. -patient gets dialyzed for volume overload. Will hold Lasix for now hypotension (6) Chronic progressive renal failure, stage 4 (severe): Code(s): N18.4 - Chronic kidney disease, stage 4 (severe) Status: Chronic Assessment and Plan: Patient presented with acute kidney injury with progression of his known chronic kidney disease. Patient was started on dialysis after dialysis catheter was placed by surgery this admission -dialysis per Nephrology (7) Aortic stenosis: Onset Date: ~12/2019 Code(s): I35.0 - Nonrheumatic aortic (valve) stenosis Status: Acute Assessment and Plan: Cardiology following the patient for severe aortic stenosis and moderate MR (8) DVT prophylaxis: Code(s): Z29.9 - Encounter for prophylactic measures, unspecified Status: Acute Assessment and Plan: Heparin subcu (9) Dietary counseling and surveillance: Code(s): Z71.3 - Dietary counseling and surveillance Status: Acute Assessment and Plan: On tube feeds, currently on hold as patient being woken up, for possible extubation Additional Plan D/w Tarah, updated with patient's condition and plan of care. I explained to her the reason patient is been the ICU secondary to respiratory arrest requiring intubation and mechanical ventilation. I answered all questions Code status: Full code Critical care time spent: 33 minutes Due to a high probability of clinically significant, life threatening deterioration, the patient required my highest level of preparedness to intervene emergently and I personally spent this critical care time directly and personally managing the patient. This critical care time included obtaining a history; examining the patient; pulse oximetry; ordering and review of studies; arranging urgent treatment with development of a management plan; evaluation of patient's response to treatment; frequent reassessment; and discussions with other providers. It was exclusive of separately billable procedures and treating other patients and teaching time. Please see Assessment and Plan section and the rest of the note for further information on patient assessment and treatment Subjective Date/time seen: 03/08/20
[2020-03-08] MEDS: INSULIN ASPART (*BKC) 100 UNITS/ML SUB-Q ×2 (12:26→17:35)
[2020-03-08 12:38] LABS: Glucose Point of Care 221 (65-105)
--- NOTE | 2020-03-08 13:33 | PCDIET ---
Nutrition Follow-Up Complete: Nutrition Diagnosis: Inadequate oral intake related to oral intubation as evidenced by NPO status. Nutrition Goal: Patient to meet estimated nutritional needs. Goal in progress. Patient had been tolerating Nepro feedings which were advancing toward goal of 45mL/hr, but feedings placed on hold for possible extubation. Tube feedings to resume if unable to extubate. Last recorded weight is 78.2 kg which is decreased from last review. -I/O. Bowel Motility: No documented BM. If medically appropriate, would consider medication to promote BM. Labs Reviewed: Hgb (11.6), Hct (35.7), Glu (168), BUN (104), Cr (7.2), PO4 (6.9) Meds Noted: Fentanyl, Lipitor, Pepcid, Heparin, Novolog, Albumin, Albuterol, Dexamethasone, Atrovent, Versed Additional Notes: Buttocks macerated. Scabs/blackened areas on toes. Will continue to monitor with same goal. Nutrition Monitoring and Evaluation: Follow up every Wednesday/Wednesday.
--- NOTE | 2020-03-08 13:34 | P.PNNP_ITS ---
Progress Note: A&P Assessment and Plan (1) KENNY (acute kidney injury): Code(s): N17.9 - Acute kidney failure, unspecified Status: Acute Assessment and Plan: * is this really KENNY or is this just progression of his known CKD?? -- leaning towards the latter * he looks euvolemic. * Potassium is fine. * he is due for dialysis tomorrow. (2) Chronic progressive renal failure, stage 4 (severe): Code(s): N18.4 - Chronic kidney disease, stage 4 (severe) Status: Chronic Assessment and Plan: * baseline creatinine runs around 2.5 - 2.8mg/dl * due to diabetes, hypertension, cardiac + vavlular heart disease (systolic + diastolic heart failure along with aortic stenosis) (3) Confusion: Code(s): R41.0 - Disorientation, unspecified Status: Acute Assessment and Plan: * Stat it was are wearing off. He has not wakened and yet. * He is on the ventilator now. (4) Acute exacerbation of congestive heart failure: Code(s): I50.9 - Heart failure, unspecified Status: Acute Assessment and Plan: * Cardiology following * volume status looks pretty good right now. * Trying to keep systolic above 100 (5) Hypertension: Code(s): I10 - Essential (primary) hypertension Status: Acute Assessment and Plan: * BP is better. He is on carvedilol alone (6) Anemia: Code(s): D64.9 - Anemia, unspecified Status: Acute Assessment and Plan: * due to iron deficiency and underlying CKD * has been on Epogen with HD * 11. Will hold his Epogen. (7) UTI (urinary tract infection): Code(s): N39.0 - Urinary tract infection, site not specified Status: Acute Assessment and Plan: * Finished antibiotics (8) Diabetes: Code(s): E11.9 - Type 2 diabetes mellitus without complications Status: Chronic Assessment and Plan: * on acchecks * on SSI (9) COVID-19: Code(s): U07.1 - COVID-19 Status: Acute Assessment and Plan: COVID positive. Asymptomatic. Subjective Date/time seen: 03/08/20 13:34 Interval history: The patient Had dialysis yesterday. The blood pressure tolerated better. Still intubated. He has been off his pressors for a few hours but has not woken up yet. Review of Systems Review of Systems: ROS unobtainable: Yes unobtainable due to medical condition Exam Narrative: Exam Narrative: General: WD/WN male in NAD Heart: normal S1 and S2; 3/6 systolic ejection murmur Lungs: Coarse breath sounds Abdomen: soft, nontender, nondistended, positive bowel sounds Extremities: trace edema Skin: no rash or subcu nodules Objective Data Vital Signs Vital Signs: Vital Signs - 24 hr 03/07/20 14:00 03/07/20 14:10 03/07/20 16:00 Temperature 35.9 C L Pulse Rate 58 L 59 L 59 L Respiratory Rate 14 15 Blood Pressure 107/57 L 107/65 Pulse Oximetry 99 100 100 03/07/20 17:17 03/07/20 17:49 03/07/20 20:00 Temperature Pulse Rate 62 58 L 60 Respiratory Rate 19 Blood Pressure 105/59 L Pulse Oximetry 100 99 03/07/20 20:28 03/07/20 21:40 03/07/20 22:00 Temperature 36.3 C L Pulse Rate 60 58 L 60 Respiratory Rate 16 17 17 Blood Pressur
--- NOTE | 2020-03-08 13:34 | PM.PNNEP ---
Progress Note: A&P Assessment and Plan (1) KENNY (acute kidney injury): Code(s): N17.9 - Acute kidney failure, unspecified Status: Acute Assessment and Plan: is this really KENNY or is this just progression of his known CKD?? -- leaning towards the latter he looks euvolemic. Potassium is fine. he is due for dialysis tomorrow. (2) Chronic progressive renal failure, stage 4 (severe): Code(s): N18.4 - Chronic kidney disease, stage 4 (severe) Status: Chronic Assessment and Plan: baseline creatinine runs around 2.5 - 2.8mg/dl due to diabetes, hypertension, cardiac + vavlular heart disease (systolic + diastolic heart failure along with aortic stenosis) (3) Confusion: Code(s): R41.0 - Disorientation, unspecified Status: Acute Assessment and Plan: Stat it was are wearing off. He has not wakened and yet. He is on the ventilator now. (4) Acute exacerbation of congestive heart failure: Code(s): I50.9 - Heart failure, unspecified Status: Acute Assessment and Plan: Cardiology following volume status looks pretty good right now. Trying to keep systolic above 100 (5) Hypertension: Code(s): I10 - Essential (primary) hypertension Status: Acute Assessment and Plan: BP is better. He is on carvedilol alone (6) Anemia: Code(s): D64.9 - Anemia, unspecified Status: Acute Assessment and Plan: due to iron deficiency and underlying CKD has been on Epogen with HD 11. Will hold his Epogen. (7) UTI (urinary tract infection): Code(s): N39.0 - Urinary tract infection, site not specified Status: Acute Assessment and Plan: Finished antibiotics (8) Diabetes: Code(s): E11.9 - Type 2 diabetes mellitus without complications Status: Chronic Assessment and Plan: on acchecks on SSI (9) COVID-19: Code(s): U07.1 - COVID-19 Status: Acute Assessment and Plan: COVID positive. Asymptomatic. Subjective Date/time seen: 03/08/20 13:34 Interval history: The patient Had dialysis yesterday. The blood pressure tolerated better. Still intubated. He has been off his pressors for a few hours but has not woken up yet. Review of Systems Review of Systems: ROS unobtainable: Yes unobtainable due to medical condition Exam Narrative: Exam Narrative: General: WD/WN male in NAD Heart: normal S1 and S2; 3/6 systolic ejection murmur Lungs: Coarse breath sounds Abdomen: soft, nontender, nondistended, positive bowel sounds Extremities: trace edema Skin: no rash or subcu nodules Objective Data Vital Signs Vital Signs: Vital Signs - 24 hr 03/07/20 14:00 03/07/20 14:10 03/07/20 16:00 Temperature 35.9 C L Pulse Rate 58 L 59 L 59 L Respiratory Rate 14 15 Blood Pressure 107/57 L 107/65 Pulse Oximetry 99 100 100 03/07/20 17:17 03/07/20 17:49 03/07/20 20:00 Temperature Pulse Rate 62 58 L 60 Respiratory Rate 19 Blood Pressure 105/59 L Pulse Oximetry 100 99 03/07/20 20:28 03/07/20 21:40 03/07/20 22:00 Temperature 36.3 C L Pulse Rate 60 58 L 60 Respiratory Rate 16 17 17 Blood Pressure 103/54 L 106/56 L Pulse Oximetry 98 98 98 03/07/20 23:23 03/08/20 00:00 03/08/20 00:50 Temperature 36.6 C Pulse Rate 60 61 Respiratory Rate 17 Blood Pressure 118/63 Pulse Oximetry 97 97 96 03/08/20 01:49 03/08/20 01:59 03/08/20 02:30 Temperature Pulse Rate 60 59 L 59 L Respiratory Rate 18 14 18 Blood Pressure 90/52 L Pulse Oximetry 98 93 03/08/20 03:17 03/08/20 03:18 03/08/20 04:00 Temperature 36.6 C Pulse Rate 62 62 60 Respiratory Rate 18 18 19 Blood Pressure 113/54 L Pulse Oximetry 100 03/08/20 04:26 03/08/20 06:00 03/08/20 07:35 Temperature Pulse Rate 61 69 63 Respiratory Rate 17 17 Blood Pressure 113/58 L Pulse Oximetry 100 100 100 03/08/20 07:45 03/08/20 08:00
--- NOTE | 2020-03-08 16:59 | PM.IMPN ---
Progress Note: A&P Assessment and Plan (1) COVID-19: Code(s): U07.1 - COVID-19 Status: Acute Assessment and Plan: Patient tested negative 02/14/20 for COVID but now positive on 03/01/20 (done as a screening to go to the SNF; patient asymptomatic). Patient has been afebrile since admission. It is unclear when he was exposed or how long he has had COVID. His O2 requirement has been stable for many days. started Decadron(D#7) given unclear how or when he might have contracted the virus. (2) Confusion: Code(s): R41.0 - Disorientation, unspecified Status: Acute Assessment and Plan: Patient confused 02/28. Labs, ABG and CXR okay. CT brain ordered but this also showing no acute changes. Symptoms improved after having HD 03/04. Could be COVID related but felt less likely. Plan for HD again 03/09 (3) Acute respiratory failure with hypoxia: Code(s): J96.01 - Acute respiratory failure with hypoxia Status: Acute Assessment and Plan: Secondary to congestive heart failure. COVID test negative 02/14/20 but positive now. He does have evidence of aspiration with thin liquids. Hypoxia could be related to dysphagia/aspiration as well. Tunnel cath placed 02/22 and now on HD. Diet adjusted. Prog[facility] to [facility] pm [facility], ? covid,chf, or aspiration (4) Acute exacerbation of congestive heart failure: Code(s): I50.9 - Heart failure, unspecified Status: Acute Assessment and Plan: Echo here revealed EF of 55% with diastolic dysfunction Grade I and moderate to severe with moderate MR. BNP 32K. CXR showing pulmonary edema. . Clinically better and CXR 02/28 looks better after dialysis sessions We continued Jamal hose. We continued HD to control fluid status. Lasix resumed. (5) Chronic progressive renal failure, stage 4 (severe): Code(s): N18.4 - Chronic kidney disease, stage 4 (severe) Status: Chronic Assessment and Plan: Cr was in the mid-2 range in December. Creatinine 3.1 on admission and increased to 3.3 the next day. Cr running 3.3-3.6 range for many days but then 4.1-4.5 and climbing despite being off his diuretics (held 02/15). Renal sonogram showed no hydro but distended bladder and over 600 ml residual so cath placed. No change in Cr since Ahuja placed so less likely from obstructive uropathy. Patient also mildly confused which could be related to the azotemia. With continued evidence of fluid overload and uremia, he was started dialysis 02/22 and will continue outpatient dialysis Wednesday//Wednesday. (6) Aortic stenosis: Onset Date: ~12/2019 Code(s): I35.0 - Nonrheumatic aortic (valve) stenosis Status: Acute Assessment and Plan: Echo showng moderate to severe with 1 cm2 valve area. Being followed by cardiology. (7) Chronic anemia: Code(s): D64.9 - Anemia, unspecified Status: Acute Assessment and Plan: Patient with chronic anemia mostly in the 10-11 prior to admission. Hgb had dropped into the 9 range but 11 now. [place] anemia of chronic disease with iron deficiency component as well. He completed IV iron x 5 days. (8) Hypertension: Code(s): I10 - Essential (primary) hypertension Status: Acute Assessment and Plan: Patient's blood pressure was monitored closely Blood pressure remained mostly well controlled. We continued current medications coreg only (9) Type 2 diabetes mellitus with peripheral neuropathy: Code(s): E11.42 - Type 2 diabetes mellitus with diabetic polyneuropathy Status: Acute Assessment and Plan: Last A1c 5.6 in June. The patient's blood glucose was monitored closely Glucose remains well controlled. Continue to monitor with AccuCheks covering with sliding scale. Hypoglycemia protocol available as needed. Continue current treatment plan. (10) Benign prostatic hyperpl
[2020-03-08 17:44] LABS: Glucose Point of Care 243 (65-105)
[2020-03-09] VITALS (34 sets, daily range): BP systolic 91–148; BP diastolic 51–83; PULSE 62–79; RESP 17–23; TEMP 36–37.2; O2SAT 97–100
[2020-03-09] MEDS: INSULIN ASPART (*BKC) 100 UNITS/ML SUB-Q ×2 (00:32→18:14)
[2020-03-09 01:55] LABS: Glucose Point of Care 214 (65-105)
[2020-03-09] MEDS: IPRATROPIUM BR 0.02% INH SOLN 0.5 MG/2.5 ML VIAL INHALATION ×4 (02:35→21:03)
[2020-03-09] MEDS: ALBUTEROL SULFATE NEB 2.5 MG/0.5 ML INH INHALATION ×4 (02:35→21:02)
[2020-03-09 04:24] LABS: Hematocrit 31.8 % (42.0-52.0); Hemoglobin 10.5 g/dL (14.0-18.0); Mean Corpuscular Hemoglobin 31.6 pg (26-34); Mean Corpuscular Volume 95.8 fl (80-100); Mean Platelet Volume 11.2 fl (7.4-10.4); Platelet Count Result 157 k/mm3 (150-375); Red Blood Count 3.32 M/mm3 (4.6-6.20); Red Cell Distribution Width 15.3 % (11.5-14.5); White Blood Count 7.1 K/mm3 (4.5-10.0)
[2020-03-09 04:34] LABS: Alveolar/Arterial O2 Gradient 119.3 mmHg; Arterial Blood Gas Vent Mode CMV; Arterial Blood Gas Ventilator rate 12 /MIN; Base Excess ABG -1.9 mEq/l (+/-2.0); Carboxyhemoglobin 0.3 % THb (0-2.0); Device VENTILATOR; Fractional Inspired Oxygen 35 %; HCO3 ABG 22.1 mEq/l (22.0-26.0); Methemoglobin ABG 0.2 %THb (0-1.5); Modified Allen's Test Unable to perform; Oxygen Content ABG 18.2 %vol (16.0-22.0); Oxyhemoglobin 95.4 % THb (90.0-100.0); PCO2 ABG 35.4 mmHg (35.0-45.0); PO2 ABG 89.1 mmHg (80.0-100.0); PO2 FiO2 Ratio Arterial Blood 2.55 %; Reduced Hemoglobin 4.1 %THb (0-5.0); Site Drawn RIGHT RADIAL; Total Hemoglobin 13.5 g/dL (12.0-18.0); pH ABG 7.413 (7.350-7.450)
[2020-03-09 04:35] LABS: Arterial Blood Gas PEEP 5 cmH2O; Arterial Blood Gas Tidal Volume 450 ml
[2020-03-09 04:42] LABS: Anion Gap 12 mmol/L (8-16); Calcium 8.4 mg/dL (8.4-10.2); Carbon Dioxide 25 mmol/L (22-30); Chloride 104 mmol/L (98-107); Estimated CRCL calculation 8 ml/min; Estimated Glomerular Filt Rate 7; Glucose 192 mg/dL (75-110); Magnesium 2.9 mg/dL (1.6-2.3); Phosphorus 6.3 mg/dL (2.5-4.5); Sodium 141 mmol/L (137-145)
[2020-03-09 06:02] LABS: Blood Urea Nitrogen 125 mg/dL (9-20)
[2020-03-09] MEDS: GABAPENTIN 300 MG CAPSULE 600 MG PO ×3 (06:20→21:17)
--- NOTE | 2020-03-09 08:06 | WPDINTPN ---
Progress Note: A&P Assessment and Plan (1) Respiratory failure: Qualifiers: Chronicity: acute Respiratory failure complication: hypoxia Qualified Code(s): J96.01 - Acute respiratory failure with hypoxia Code(s): J96.90 - Respiratory failure, unspecified, unspecified whether with hypoxia or hypercapnia Status: Acute Assessment and Plan: 03/08: ABG 7.413/35/89/97 on CMV rate 12, FIO2 35%, TV 450, PEEP 5 Continue to support and wean as possible as volume status improves (2) Acute exacerbation of congestive heart failure: Qualifiers: Heart failure type: diastolic Qualified Code(s): I50.33 - Acute on chronic diastolic (congestive) heart failure Code(s): I50.9 - Heart failure, unspecified Status: Acute Assessment and Plan: 03/09: 03/08 I/O 836/200, UO 225 overnight Continue dialysis for fluid management (3) COVID-19: Code(s): U07.1 - COVID-19 Status: Acute Assessment and Plan: PCR negative 02/13, POSITIVE 03/01 Dexamethasone 03/02-03/11 (4) Type 2 diabetes mellitus with peripheral neuropathy: Code(s): E11.42 - Type 2 diabetes mellitus with diabetic polyneuropathy Status: Acute Assessment and Plan: 03/08: Recent blood sugars 160's to 240's Continue basal and SSI (5) End stage renal disease: Code(s): N18.6 - End stage renal disease Status: Acute Assessment and Plan: 03/08: BUN 125, Creatinine 7.5 Continue dialysis per nephrology, due 03/09 (6) Urinary retention due to benign prostatic hyperplasia: Code(s): N40.1 - Benign prostatic hyperplasia with lower urinary tract symptoms; R33.8 - Other retention of urine Status: Acute Assessment and Plan: Continue finasteride (7) Aortic stenosis: Onset Date: ~12/2019 Code(s): I35.0 - Nonrheumatic aortic (valve) stenosis Status: Acute Assessment and Plan: Moderate-severe by echo Cardiology following (8) Anemia: Code(s): D64.9 - Anemia, unspecified Status: Acute Assessment and Plan: CKD related Continue epoitin Subjective Date/time seen: 03/09/20 08:06 Interval history: Intubated after 03/06 dialysis due to agonal breathing. COVID+. Initally admitted 02/04 with diastolic CHF exacerbation. Known CKD and as well. Review of Systems Review of Systems: ROS unobtainable: Yes unobtainable due to medical condition Exam Narrative: Exam Narrative: HEENT: EOMI, PERRL, sclerae nonicteric, ET Tube in place NECK: No JVD CHEST: Scattered exp wheezes. HEART: NL S1/S2, regular, no murmur ABDOMEN: BS+, soft, nontender, no mass, no bruits EXTREMITIES: No cyanosis, edema, or clubbing NEUROLOGIC: CN intact and symmetric to inspection. MUSCULOSKELETAL: Tone and strength symmetric. PSYCH: Arouses easily. Follows simple commands. Objective Data Vital Signs Vital Signs: Vital Signs - 24 hr 03/08/20 08:45 03/08/20 10:00 03/08/20 11:41 Temperature 97.1 F L Pulse Rate 61 66 66 Respiratory Rate 19 18 Blood Pressure 105/54 L Pulse Oximetry 99 96 03/08/20 14:00 03/08/20 14:22 03/08/20 15:40 Temperature 98.3 F Pulse Rate 65 65 66 Respiratory Rate 18 19 19 Blood Pressure 118/60 Pulse Oximetry 98 98 03/08/20 16:00 03/08/20 17:22 03/08/20 18:00 Temperature 97.7 F 97.6 F Pulse Rate 66 63 62 Respiratory Rate 19 18 Blood Pressure 114/64 124/66 Pulse Oximetry 99 98 98 03/08/20 19:34 03/08/20 20:00 03/08/20 20:45 Temperature 97.2 F L Pulse Rate 63 62 63 Respiratory Rate 18 16 Blood Pressure 117/62 Pulse Oximetry 98 99 03/08/20 22:20 03/08/20 23:13 03/09/20 00:00 Temperature 97.1 F L Pulse Rate 62 64 66 Respiratory Rate 16 19 Blood Pressure 147/59 H 146/74 H Pulse Oximetry 99 100 98 03/09/20 02:00 03/09/20 02:37 03/09/20 02:38 Temperature Pulse Rate 62 67 65 Respiratory Rate 18 20 Blood Pressure 121/62 Pulse Oximetry 98 98
[2020-03-09] MEDS: FAMOTIDINE 20 MG/2 ML VIAL IV PUSH ×2 (09:27→21:17)
[2020-03-09] MEDS: BETAMETHASONE/CLOTRIMAZOLE CR 15 GM TUBE 1 APPLIC TOPICAL ×2 (09:27→21:17)
[2020-03-09] MEDS: HEPARIN SODIUM 5,000 UNITS/ML VIAL 5000 UNITS SUB-Q ×2 (09:27→21:16)
[2020-03-09] MEDS: ATORVASTATIN 10 MG TABLET PO (09:27)
[2020-03-09] MEDS: MIDODRINE HCL 2.5 MG TABLET 5 MG PO ×3 (09:27→16:16)
[2020-03-09] MEDS: DEXAMETHASONE 2 MG TABLET 6 MG PO (09:28)
[2020-03-09] MEDS: FINASTERIDE 5 MG TABLET PO (09:28)
[2020-03-09 11:33] LABS: Glucose Point of Care 186 (65-105)
--- NOTE | 2020-03-09 14:42 | P.PNNP_ITS ---
Progress Note: A&P Assessment and Plan (1) KENNY (acute kidney injury): Code(s): N17.9 - Acute kidney failure, unspecified Status: Acute Assessment and Plan: * is this really KENNY or is this just progression of his known CKD?? -- leaning towards the latter * given the multiple insults that has occurred during this hospitalization and his known baseline kidney disease, I have concerns that his kidney function may not recover and he may be dialysis dependent * volume status seems reasonable (euvolemic) * no critical electrolyte but clearance is an issue (high BUN/creatinine - although high BUN could be secondary to steroids) * HD today and continue T/T/S schedule for now (2) Chronic progressive renal failure, stage 4 (severe): Code(s): N18.4 - Chronic kidney disease, stage 4 (severe) Status: Chronic Assessment and Plan: * baseline creatinine runs around 2.5 - 2.8mg/dl * due to diabetes, hypertension, cardiac + vavlular heart disease (systolic + diastolic heart failure along with aortic stenosis) (3) Confusion: Code(s): R41.0 - Disorientation, unspecified Status: Acute Assessment and Plan: * etiology not clear * did have a component of uremic encephalopathy earlier during this hospitalization (improved with initiation of dialysis) * on ventilator support at this time (4) Acute exacerbation of congestive heart failure: Qualifiers: Heart failure type: diastolic Qualified Code(s): I50.33 - Acute on chronic diastolic (congestive) heart failure Code(s): I50.9 - Heart failure, unspecified Status: Acute Assessment and Plan: * Cardiology following * volume status pretty good at this time * attempting to keep systolic above 100 (5) Hypertension: Code(s): I10 - Essential (primary) hypertension Status: Acute Assessment and Plan: * reasonable control * follow trend of hemodynamics (6) Anemia: Code(s): D64.9 - Anemia, unspecified Status: Acute Assessment and Plan: * due to iron deficiency and underlying CKD * has been on Epogen with HD * follow trend of H/H (7) COVID-19: Code(s): U07.1 - COVID-19 Status: Acute Assessment and Plan: * testing positive * however, was asymptomatic when discovered * on steroids (likely contributing to elevated BUN) (8) Diabetes: Code(s): E11.9 - Type 2 diabetes mellitus without complications Status: Chronic Assessment and Plan: * on acchecks * on SSI Will continue to follow. Subjective Date/time seen: 03/09/20 14:42 Chart reviewed since last seen -- tolerating dialysis at the time of my visit (seen on HD at ~ 2:30PM) although limited fluid removal noted; no apparent distress noted; remains intubated/sedated; no acute events overnight. Exam Narrative: Exam Narrative: General: WD/WN male in NAD; intubated/sedated Heart: normal S1 and S2; 3/6 systolic ejection murmur Lungs: coarse breath sounds Abdomen: soft, nontender, nondistended, positive bowel sounds Extremities: no cyanosis or clubbing; trace edema Skin: dry and intact Objective Data Vital Signs Vital Signs: Vital Signs Temp Pulse Resp BP Pulse Ox 03/09/20 14:01 68 23 H 99 03/09/20 13:45 37.2 C 79 23 H 132/65 99 03/09/20 12:00 36.2 C L 70 21 H 148/67 H 97 03/09/20 10:56 69 98 03/09/20 10:00 70 21 H
--- NOTE | 2020-03-09 14:42 | PM.PNNEP ---
Progress Note: A&P Assessment and Plan (1) KENNY (acute kidney injury): Code(s): N17.9 - Acute kidney failure, unspecified Status: Acute Assessment and Plan: is this really KENNY or is this just progression of his known CKD?? -- leaning towards the latter given the multiple insults that has occurred during this hospitalization and his known baseline kidney disease, I have concerns that his kidney function may not recover and he may be dialysis dependent volume status seems reasonable (euvolemic) no critical electrolyte but clearance is an issue (high BUN/creatinine - although high BUN could be secondary to steroids) HD today and continue T/T/S schedule for now (2) Chronic progressive renal failure, stage 4 (severe): Code(s): N18.4 - Chronic kidney disease, stage 4 (severe) Status: Chronic Assessment and Plan: baseline creatinine runs around 2.5 - 2.8mg/dl due to diabetes, hypertension, cardiac + vavlular heart disease (systolic + diastolic heart failure along with aortic stenosis) (3) Confusion: Code(s): R41.0 - Disorientation, unspecified Status: Acute Assessment and Plan: etiology not clear did have a component of uremic encephalopathy earlier during this hospitalization (improved with initiation of dialysis) on ventilator support at this time (4) Acute exacerbation of congestive heart failure: Qualifiers: Heart failure type: diastolic Qualified Code(s): I50.33 - Acute on chronic diastolic (congestive) heart failure Code(s): I50.9 - Heart failure, unspecified Status: Acute Assessment and Plan: Cardiology following volume status pretty good at this time attempting to keep systolic above 100 (5) Hypertension: Code(s): I10 - Essential (primary) hypertension Status: Acute Assessment and Plan: reasonable control follow trend of hemodynamics (6) Anemia: Code(s): D64.9 - Anemia, unspecified Status: Acute Assessment and Plan: due to iron deficiency and underlying CKD has been on Epogen with HD follow trend of H/H (7) COVID-19: Code(s): U07.1 - COVID-19 Status: Acute Assessment and Plan: testing positive however, was asymptomatic when discovered on steroids (likely contributing to elevated BUN) (8) Diabetes: Code(s): E11.9 - Type 2 diabetes mellitus without complications Status: Chronic Assessment and Plan: on acchecks on SSI Will continue to follow. Subjective Date/time seen: 03/09/20 14:42 Chart reviewed since last seen -- tolerating dialysis at the time of my visit (seen on HD at ~ 2:30PM) although limited fluid removal noted; no apparent distress noted; remains intubated/sedated; no acute events overnight. Exam Narrative: Exam Narrative: General: WD/WN male in NAD; intubated/sedated Heart: normal S1 and S2; 3/6 systolic ejection murmur Lungs: coarse breath sounds Abdomen: soft, nontender, nondistended, positive bowel sounds Extremities: no cyanosis or clubbing; trace edema Skin: dry and intact Objective Data Vital Signs Vital Signs: Vital Signs Temp Pulse Resp BP Pulse Ox 03/09/20 14:01 68 23 H 99 03/09/20 13:45 37.2 C 79 23 H 132/65 99 03/09/20 12:00 36.2 C L 70 21 H 148/67 H 97 03/09/20 10:56 69 98 03/09/20 10:00 70 21 H 121/66 97 03/09/20 08:39 71 21 H 03/09/20 08:35 69 98 03/09/20 08:00 36.1 C L 67 18 114/51 L 97 03/09/20 06:00 67 17 130/61 97 03/09/20 05:15 62 98 03/09/20 04:00 36.3 C L 62 19 109/58 L 98 03/09/20 02:38 65 98 03/09/20 02:37 67 20 03/09/20 02:00 62 18 121/62 98 03/09/20 00:00 36.2 C L 66 19 146/74 H 98 03/08/20 23:13 64 100 03/08/20 22:20 62 16 147/59 H 99 03/08/20 20:45 36.2 C L 63 16 117/62 99 03/08/20 20:00 62 03/08/20 19:34 63 18 98 03/08/20 18:00 36.4 C 62
--- NOTE | 2020-03-09 16:32 | PM.IMPN ---
Progress Note: A&P Assessment and Plan (1) COVID-19: Code(s): U07.1 - COVID-19 Status: Acute Assessment and Plan: Patient tested negative 02/14/20 for COVID but now positive on 03/01/20 (done as a screening to go to the SNF; patient asymptomatic). Patient has been afebrile since admission. It is unclear when he was exposed or how long he has had COVID. His O2 requirement has been stable for many days. started Decadron(D#8) given unclear how or when he might have contracted the virus. (2) Confusion: Code(s): R41.0 - Disorientation, unspecified Status: Acute Assessment and Plan: Patient confused 02/28. Labs, ABG and CXR okay. CT brain ordered but this also showing no acute changes. Symptoms improved after having HD 03/04. Could be COVID related but felt less likely. Plan for HD again today 03/09 (3) Acute respiratory failure with hypoxia: Code(s): J96.01 - Acute respiratory failure with hypoxia Status: Acute Assessment and Plan: Secondary to congestive heart failure. COVID test negative 02/14/20 but positive now. He does have evidence of aspiration with thin liquids. Hypoxia could be related to dysphagia/aspiration as well. Tunnel cath placed 02/22 and now on HD. Diet adjusted. Progressed to intubation pm 03/07 with [facility] ventilation, ? covid,chf, or aspiration (4) Acute exacerbation of congestive heart failure: Qualifiers: Heart failure type: diastolic Qualified Code(s): I50.33 - Acute on chronic diastolic (congestive) heart failure Code(s): I50.9 - Heart failure, unspecified Status: Acute Assessment and Plan: Echo here revealed EF of 55% with diastolic dysfunction Grade I and moderate to severe with moderate MR. BNP 32K. CXR showing pulmonary edema. . Clinically better and CXR 02/28 looks better after dialysis sessions We continued Jamal hose. We continued HD to control fluid status. Lasix resumed. (5) Chronic progressive renal failure, stage 4 (severe): Code(s): N18.4 - Chronic kidney disease, stage 4 (severe) Status: Chronic Assessment and Plan: Cr was in the mid-2 range in December. Creatinine 3.1 on admission and increased to 3.3 the next day. Cr running 3.3-3.6 range for many days but then 4.1-4.5 and climbing despite being off his diuretics (held 02/15). Renal sonogram showed no hydro but distended bladder and over 600 ml residual so cath placed. No change in Cr since Ahuja placed so less likely from obstructive uropathy. Patient also confused which could be related to the azotemia. With continued evidence of fluid overload and uremia, he was started dialysis 02/22 and will continue outpatient dialysis Wednesday//Wednesday. (6) Aortic stenosis: Onset Date: ~12/2019 Code(s): I35.0 - Nonrheumatic aortic (valve) stenosis Status: Acute Assessment and Plan: Echo showng moderate to severe with 1 cm2 valve area. Being followed by cardiology. (7) Chronic anemia: Code(s): D64.9 - Anemia, unspecified Status: Acute Assessment and Plan: Patient with chronic anemia mostly in the 10-11 prior to admission. Hgb had dropped into the 9 range but 11 now. [place] anemia of chronic disease with iron deficiency component as well. He completed IV iron x 5 days. (8) Hypertension: Code(s): I10 - Essential (primary) hypertension Status: Acute Assessment and Plan: Patient's blood pressure was monitored closely Blood pressure remained mostly well controlled. We continued current medications coreg only (9) Type 2 diabetes mellitus with peripheral neuropathy: Code(s): E11.42 - Type 2 diabetes mellitus with diabetic polyneuropathy Status: Acute Assessment and Plan: Last A1c 5.6 in June. The patient's blood glucose was monitored closely Glucose remains well controlled. Continue to monitor with AccuCheks
[2020-03-09 18:05] LABS: Glucose Point of Care > 500 (65-105)
[2020-03-09 18:05] LABS: Glucose Point of Care > 500 (65-105)
[2020-03-09 18:13] LABS: Glucose Point of Care 237 (65-105)
[2020-03-10] VITALS (27 sets, daily range): BP systolic 113–134; BP diastolic 57–74; PULSE 66–78; RESP 18–26; TEMP 35.9–38.4; O2SAT 92–98
[2020-03-10 00:43] LABS: Glucose Point of Care 226 (65-105)
[2020-03-10] MEDS: INSULIN ASPART (*BKC) 100 UNITS/ML SUB-Q ×3 (01:15→17:41)
[2020-03-10] MEDS: ALBUTEROL SULFATE NEB 2.5 MG/0.5 ML INH INHALATION ×4 (03:31→20:13)
[2020-03-10] MEDS: IPRATROPIUM BR 0.02% INH SOLN 0.5 MG/2.5 ML VIAL INHALATION ×4 (03:32→20:13)
[2020-03-10 05:38] LABS: Alveolar/Arterial O2 Gradient 108.1 mmHg; Base Excess ABG 5.1 mEq/l (+/-2.0); Carboxyhemoglobin 0.3 % THb (0-2.0); Fractional Inspired Oxygen 30 %; HCO3 ABG 28.2 mEq/l (22.0-26.0); Methemoglobin ABG 0.1 %THb (0-1.5); Oxygen Content ABG 17.2 %vol (16.0-22.0); Oxygen Saturation ABG 94.1 % (95.0-100.0); Oxyhemoglobin 91.8 % THb (90.0-100.0); PCO2 ABG 36.3 mmHg (35.0-45.0); PO2 ABG 63.2 mmHg (80.0-100.0); PO2 FiO2 Ratio Arterial Blood 2.11 %; Reduced Hemoglobin 7.8 %THb (0-5.0); Total Hemoglobin 13.3 g/dL (12.0-18.0); pH ABG 7.508 (7.350-7.450)
[2020-03-10 05:39] LABS: Device VENTILATOR; Modified Allen's Test Pass; Site Drawn LEFT RADIAL
[2020-03-10 05:40] LABS: Arterial Blood Gas PEEP 5 cmH2O; Arterial Blood Gas Tidal Volume 450 ml; Arterial Blood Gas Vent Mode CMV; Arterial Blood Gas Ventilator rate 12 /MIN
[2020-03-10 06:09] LABS: Hematocrit 31.5 % (42.0-52.0); Hemoglobin 10.5 g/dL (14.0-18.0); Mean Corpuscular HGB Conc 33.3 g/dl (32-36); Mean Corpuscular Hemoglobin 31.7 pg (26-34); Mean Corpuscular Volume 95.2 fl (80-100); Mean Platelet Volume 11.4 fl (7.4-10.4); Platelet Count Result 156 k/mm3 (150-375); Red Blood Count 3.31 M/mm3 (4.6-6.20); White Blood Count 9.2 K/mm3 (4.5-10.0)
[2020-03-10] MEDS: GABAPENTIN 300 MG CAPSULE 600 MG PO ×3 (06:10→21:05)
[2020-03-10 06:34] LABS: Anion Gap 8 mmol/L (8-16); Blood Urea Nitrogen 92 mg/dL (9-20); Calcium 8.3 mg/dL (8.4-10.2); Carbon Dioxide 31 mmol/L (22-30); Chloride 100 mmol/L (98-107); Estimated CRCL calculation 11 ml/min; Estimated Glomerular Filt Rate 10; Glucose 179 mg/dL (75-110); Magnesium 2.7 mg/dL (1.6-2.3); Phosphorus 3.9 mg/dL (2.5-4.5); Sodium 139 mmol/L (137-145)
[2020-03-10] MEDS: DEXAMETHASONE 2 MG TABLET 6 MG PO (07:48)
[2020-03-10] MEDS: FAMOTIDINE 20 MG/2 ML VIAL IV PUSH ×2 (07:49→21:05)
[2020-03-10] MEDS: FINASTERIDE 5 MG TABLET PO (07:49)
[2020-03-10] MEDS: HEPARIN SODIUM 5,000 UNITS/ML VIAL 5000 UNITS SUB-Q ×2 (07:49→21:04)
[2020-03-10] MEDS: ATORVASTATIN 10 MG TABLET PO (07:49)
[2020-03-10] MEDS: MIDODRINE HCL 2.5 MG TABLET 5 MG PO ×3 (07:49→16:45)
[2020-03-10] MEDS: BETAMETHASONE/CLOTRIMAZOLE CR 15 GM TUBE 1 APPLIC TOPICAL ×2 (07:50→21:07)
--- NOTE | 2020-03-10 08:33 | P.PNINT_ITS ---
Progress Note: A&P Assessment and Plan (1) Respiratory failure: Qualifiers: Chronicity: acute Respiratory failure complication: hypoxia Qualified Code(s): J96.01 - Acute respiratory failure with hypoxia Code(s): J96.90 - Respiratory failure, unspecified, unspecified whether with hypoxia or hypercapnia Status: Acute Assessment and Plan: * 03/10: ABG 7.508/36.3/63.2/94.1% on CMV rate 12, FIO2 30%, TV 450, PEEP 5 (able to wean FIO2 overnight) * Continue to support and wean as possible as volume status and mental status improve (2) Acute exacerbation of congestive heart failure: Qualifiers: Heart failure type: diastolic Qualified Code(s): I50.33 - Acute on chronic diastolic (congestive) heart failure Code(s): I50.9 - Heart failure, unspecified Status: Acute Assessment and Plan: * 03/10: 03/09 I/O 1162/1550 with 1000 removed during dialysis, 03/10 UO 100overnight * Continue dialysis for fluid management (3) COVID-19: Code(s): U07.1 - COVID-19 Status: Acute Assessment and Plan: * PCR negative 02/13, POSITIVE 03/01 * Dexamethasone 03/02-03/11 (4) Type 2 diabetes mellitus with peripheral neuropathy: Code(s): E11.42 - Type 2 diabetes mellitus with diabetic polyneuropathy Status: Acute Assessment and Plan: * BS over 500 03/09 PM * 03/10 FBS 226, add 12 U glargine q AM * Continue SSI (5) End stage renal disease: Code(s): N18.6 - End stage renal disease Status: Acute Assessment and Plan: * 03/10: BUN 92, Creatinine 5.4 * Continue dialysis per nephrology, due 03/09 (6) Urinary retention due to benign prostatic hyperplasia: Code(s): N40.1 - Benign prostatic hyperplasia with lower urinary tract symptoms; R33.8 - Other retention of urine Status: Acute Assessment and Plan: * Continue finasteride and tamsulosin (7) Aortic stenosis: Onset Date: ~12/2019 Code(s): I35.0 - Nonrheumatic aortic (valve) stenosis Status: Acute Assessment and Plan: * Moderate-severe by echo * Cardiology following (8) Anemia: Code(s): D64.9 - Anemia, unspecified Status: Acute Assessment and Plan: * CKD related * Continue epoitin (9) Confusion: Code(s): R41.0 - Disorientation, unspecified Status: Acute Assessment and Plan: * Likely due to uremia, acute illness * 03/[address] with no acute process, 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 COVID+. Initally admitted 02/04 with diastolic CHF exacerbation. Known CKD and as well. 03/10: uneventful night. Resists care. Intermittently moves spontaneously. Review of Systems Review of Systems: ROS unobtainable: Yes unobtainable due to medical condition and unobtainable due to mental status Exam Narrative: Exam Narrative: HEENT: EOMI, PERRL, sclerae nonicteric, ET Tube in place NECK: No JVD CHEST: Scattered rhonchi HEART: NL S1/S2, regular ABDOMEN: BS+, soft, nontender, no mass, no bruits EXTREMITIES: No cyanosis, edema, or clubbing NEUROLOGIC: CN intact and symmetric to inspection. MUSCULOSKELETAL: Tone and strength symmetric. PSYCH: Drowsy, but arouses. Resists eye exam, but does not follow commands with directed movements Objective Data Vital Signs Vital Signs:
--- NOTE | 2020-03-10 08:33 | WPDINTPN ---
Progress Note: A&P Assessment and Plan (1) Respiratory failure: Qualifiers: Chronicity: acute Respiratory failure complication: hypoxia Qualified Code(s): J96.01 - Acute respiratory failure with hypoxia Code(s): J96.90 - Respiratory failure, unspecified, unspecified whether with hypoxia or hypercapnia Status: Acute Assessment and Plan: 03/10: ABG 7.508/36.3/63.2/94.1% on CMV rate 12, FIO2 30%, TV 450, PEEP 5 (able to wean FIO2 overnight) Continue to support and wean as possible as volume status and mental status improve (2) Acute exacerbation of congestive heart failure: Qualifiers: Heart failure type: diastolic Qualified Code(s): I50.33 - Acute on chronic diastolic (congestive) heart failure Code(s): I50.9 - Heart failure, unspecified Status: Acute Assessment and Plan: 03/10: 03/09 I/O 1162/1550 with 1000 removed during dialysis, 03/10 UO [id number] Continue dialysis for fluid management (3) COVID-19: Code(s): U07.1 - COVID-19 Status: Acute Assessment and Plan: PCR negative 02/13, POSITIVE 03/01 Dexamethasone 03/02-03/11 (4) Type 2 diabetes mellitus with peripheral neuropathy: Code(s): E11.42 - Type 2 diabetes mellitus with diabetic polyneuropathy Status: Acute Assessment and Plan: BS over 500 / PM 03/10 FBS 226, add 12 U glargine q AM Continue SSI (5) End stage renal disease: Code(s): N18.6 - End stage renal disease Status: Acute Assessment and Plan: 03/10: BUN 92, Creatinine 5.4 Continue dialysis per nephrology, due 03/09 (6) Urinary retention due to benign prostatic hyperplasia: Code(s): N40.1 - Benign prostatic hyperplasia with lower urinary tract symptoms; R33.8 - Other retention of urine Status: Acute Assessment and Plan: Continue finasteride and tamsulosin (7) Aortic stenosis: Onset Date: ~12/2019 Code(s): I35.0 - Nonrheumatic aortic (valve) stenosis Status: Acute Assessment and Plan: Moderate-severe by echo Cardiology following (8) Anemia: Code(s): D64.9 - Anemia, unspecified Status: Acute Assessment and Plan: CKD related Continue epoitin (9) Confusion: Code(s): R41.0 - Disorientation, unspecified Status: Acute Assessment and Plan: Likely due to uremia, acute illness 03/[address] with no acute process, 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 COVID+. Initally admitted 02/04 with diastolic CHF exacerbation. Known CKD and as well. 03/10: uneventful night. Resists care. Intermittently moves spontaneously. Review of Systems Review of Systems: ROS unobtainable: Yes unobtainable due to medical condition and unobtainable due to mental status Exam Narrative: Exam Narrative: HEENT: EOMI, PERRL, sclerae nonicteric, ET Tube in place NECK: No JVD CHEST: Scattered rhonchi HEART: NL S1/S2, regular ABDOMEN: BS+, soft, nontender, no mass, no bruits EXTREMITIES: No cyanosis, edema, or clubbing NEUROLOGIC: CN intact and symmetric to inspection. MUSCULOSKELETAL: Tone and strength symmetric. PSYCH: Drowsy, but arouses. Resists eye exam, but does not follow commands with directed movements Objective Data Vital Signs Vital Signs: Vital Signs - 24 hr 03/09/20 08:35 03/09/20 08:39 03/09/20 10:00 Temperature Pulse Rate 69 71 70 Respiratory Rate 21 H 21 H Blood Pressure 121/66 Pulse Oximetry 98 97 03/09/20 10:56 03/09/20 12:00 03/09/20 13:45 Temperature 97.1 F L 98.9 F Pulse Rate 69 70 79 Respiratory Rate 21 H 23 H Blood Pressure 148/67 H 132/65 Pulse Oximetry 98 97 99 03/09/20 13:53 03/09/20 14:00 03/09/20 14:01 Temperature Pulse Rate 71 73 68 Respiratory Rate 23 H 23 H Blood Pressure 144/58 H 100/63
[2020-03-10] MEDS: INSULIN GLARGINE (*BKC) 100 UNITS/ML 12 UNITS SUB-Q (09:48)
[2020-03-10 10:37] LABS: Glucose Point of Care 177 (65-105)
[2020-03-10 11:48] LABS: Glucose Point of Care 276 (65-105)
[2020-03-10 12:03] LABS: Ammonia 18 umol/L (9-30)
[2020-03-10 13:44] LABS: Add Urine Microscopic? YES; Appearance Urine Cloudy (Clear); Bacteria Urine 2+ /hpf; Bilirubin Urine Negative (Negative); Blood Urine 2+ (Negative); Budding Yeast Urine Present /hpf; Color Urine Amber (Yellow); Glucose Urine UA Negative (Negative); Hyaline Casts Urine 20-29 /lpf; Ketones Urine Negative (Negative); Leukocyte Esterase Ur 3+ LEU/UL (Negative); Nitrate Urine Negative (Negative); Protein Urine 3+ mg/dL (Negative); RBC Urine >75 /hpf (0-2); Urobilinogen Urine Negative mg/dL (<2.0); WBC Urine >75 /hpf
--- NOTE | 2020-03-10 15:47 | P.PNNP_ITS ---
Progress Note: A&P Assessment and Plan (1) KENNY (acute kidney injury): Code(s): N17.9 - Acute kidney failure, unspecified Status: Acute Assessment and Plan: * is this really KENNY or is this just progression of his known CKD?? -- leaning towards the latter * given the multiple insults that has occurred during this hospitalization and his known baseline kidney disease, I have concerns that his kidney function may not recover and he may be dialysis dependent * volume status seems reasonable (euvolemic) * no critical electrolyte but clearance is an issue (high BUN/creatinine - although high BUN could be secondary to steroids) * HD yesterday and continue T/T/S schedule for now (2) Chronic progressive renal failure, stage 4 (severe): Code(s): N18.4 - Chronic kidney disease, stage 4 (severe) Status: Chronic Assessment and Plan: * baseline creatinine runs around 2.5 - 2.8mg/dl * due to diabetes, hypertension, cardiac + vavlular heart disease (systolic + diastolic heart failure along with aortic stenosis) (3) Confusion: Code(s): R41.0 - Disorientation, unspecified Status: Acute Assessment and Plan: * etiology not clear * did have a component of uremic encephalopathy earlier during this hospitalization (improved with initiation of dialysis) * on ventilator support at this time (4) Acute exacerbation of congestive heart failure: Qualifiers: Heart failure type: diastolic Qualified Code(s): I50.33 - Acute on chronic diastolic (congestive) heart failure Code(s): I50.9 - Heart failure, unspecified Status: Acute Assessment and Plan: * Cardiology following * volume status pretty good at this time * attempting to keep systolic above 100 (5) Hypertension: Code(s): I10 - Essential (primary) hypertension Status: Acute Assessment and Plan: * reasonable control * follow trend of hemodynamics (6) Anemia: Code(s): D64.9 - Anemia, unspecified Status: Acute Assessment and Plan: * due to iron deficiency and underlying CKD * has been on Epogen with HD * follow trend of H/H (7) COVID-19: Code(s): U07.1 - COVID-19 Status: Acute Assessment and Plan: * testing positive * however, was asymptomatic when discovered * on steroids (likely contributing to elevated BUN) (8) Diabetes: Code(s): E11.9 - Type 2 diabetes mellitus without complications Status: Chronic Assessment and Plan: * on acchecks * on SSI Will continue to follow. Subjective Date/time seen: 03/10/20 15:47 Tolerated dialysis yesterday although limited fluid removal noted; no significant changed noted at this time; resists care at times; no events overnight or earlier this AM; febrile earlier today so re-cultured; no apparent distress noted at this time. Exam Narrative: Exam Narrative: General: WD/WN male in NAD; intubated/sedated Heart: normal S1 and S2; 3/6 systolic ejection murmur Lungs: coarse breath sounds Abdomen: soft, nontender, nondistended, positive bowel sounds Extremities: no cyanosis or clubbing; trace edema Skin: no rash Objective Data Vital Signs Vital Signs: Vital Signs Temp Pulse Resp BP Pulse Ox 03/10/20 14:40 73 93 03/10/20 14:39 73 23 H 03/10/20 14:00 74 20 117/62 94 03/10/20 12:00 38.4 C H 78 25 H 123/57 L 81 L 03/10
--- NOTE | 2020-03-10 15:47 | PM.PNNEP ---
Progress Note: A&P Assessment and Plan (1) KENNY (acute kidney injury): Code(s): N17.9 - Acute kidney failure, unspecified Status: Acute Assessment and Plan: is this really KENNY or is this just progression of his known CKD?? -- leaning towards the latter given the multiple insults that has occurred during this hospitalization and his known baseline kidney disease, I have concerns that his kidney function may not recover and he may be dialysis dependent volume status seems reasonable (euvolemic) no critical electrolyte but clearance is an issue (high BUN/creatinine - although high BUN could be secondary to steroids) HD yesterday and continue T/T/S schedule for now (2) Chronic progressive renal failure, stage 4 (severe): Code(s): N18.4 - Chronic kidney disease, stage 4 (severe) Status: Chronic Assessment and Plan: baseline creatinine runs around 2.5 - 2.8mg/dl due to diabetes, hypertension, cardiac + vavlular heart disease (systolic + diastolic heart failure along with aortic stenosis) (3) Confusion: Code(s): R41.0 - Disorientation, unspecified Status: Acute Assessment and Plan: etiology not clear did have a component of uremic encephalopathy earlier during this hospitalization (improved with initiation of dialysis) on ventilator support at this time (4) Acute exacerbation of congestive heart failure: Qualifiers: Heart failure type: diastolic Qualified Code(s): I50.33 - Acute on chronic diastolic (congestive) heart failure Code(s): I50.9 - Heart failure, unspecified Status: Acute Assessment and Plan: Cardiology following volume status pretty good at this time attempting to keep systolic above 100 (5) Hypertension: Code(s): I10 - Essential (primary) hypertension Status: Acute Assessment and Plan: reasonable control follow trend of hemodynamics (6) Anemia: Code(s): D64.9 - Anemia, unspecified Status: Acute Assessment and Plan: due to iron deficiency and underlying CKD has been on Epogen with HD follow trend of H/H (7) COVID-19: Code(s): U07.1 - COVID-19 Status: Acute Assessment and Plan: testing positive however, was asymptomatic when discovered on steroids (likely contributing to elevated BUN) (8) Diabetes: Code(s): E11.9 - Type 2 diabetes mellitus without complications Status: Chronic Assessment and Plan: on acchecks on SSI Will continue to follow. Subjective Date/time seen: 03/10/20 15:47 Tolerated dialysis yesterday although limited fluid removal noted; no significant changed noted at this time; resists care at times; no events overnight or earlier this AM; febrile earlier today so re-cultured; no apparent distress noted at this time. Exam Narrative: Exam Narrative: General: WD/WN male in NAD; intubated/sedated Heart: normal S1 and S2; 3/6 systolic ejection murmur Lungs: coarse breath sounds Abdomen: soft, nontender, nondistended, positive bowel sounds Extremities: no cyanosis or clubbing; trace edema Skin: no rash Objective Data Vital Signs Vital Signs: Vital Signs Temp Pulse Resp BP Pulse Ox 03/10/20 14:40 73 93 03/10/20 14:39 73 23 H 03/10/20 14:00 74 20 117/62 94 03/10/20 12:00 38.4 C H 78 25 H 123/57 L 81 L 03/10/20 10:55 78 93 03/10/20 10:00 78 21 H 121/65 93 03/10/20 08:37 72 18 94 03/10/20 08:00 37.4 C 75 23 H 116/63 93 03/10/20 06:00 72 21 H 128/71 92 03/10/20 05:59 72 95 03/10/20 04:00 69 03/10/20 03:55 36.8 C 69 21 H 123/64 95 03/10/20 03:37 66 97 03/10/20 03:32 69 20 03/10/20 02:00 68 20 114/61 96 03/10/20 01:10 97 03/10/20 00:10 66 98 03/10/20 00:00 35.9 C L 68 20 113/63 96 03/09/20 22:00 67 18 126/83 100 03/09/20 21:03 66 22 H 97 03/09/20 21:00 36.3 C L 67 19
--- NOTE | 2020-03-10 17:26 | PM.IMPN ---
Progress Note: A&P Assessment and Plan (1) COVID-19: Code(s): U07.1 - COVID-19 Status: Acute Assessment and Plan: Patient tested negative 02/14/20 for COVID but now positive on 03/01/20 (done as a screening to go to the SNF; patient asymptomatic). Patient has been afebrile since admission. It is unclear when he was exposed or how long he has had COVID. His O2 requirement had been stable for many days. started Decadron(D#9) given unclear how or when he might have contracted the virus. (2) Confusion: Code(s): R41.0 - Disorientation, unspecified Status: Acute Assessment and Plan: Patient confused 02/28. Labs, ABG and CXR okay. CT brain ordered but this also showing no acute changes. Symptoms improved after having HD 03/04. Could be COVID related but felt less likely. Plan for HD continue T//Wed (3) Acute respiratory failure with hypoxia: Code(s): J96.01 - Acute respiratory failure with hypoxia Status: Acute Assessment and Plan: Secondary to congestive heart failure. COVID test negative 02/14/20 but positive 03/01. He does have evidence of aspiration with thin liquids. Hypoxia could be related to dysphagia/aspiration as well. Tunnel cath placed 02/22 and now on HD. Diet adjusted. [facility], ? covid,chf, or aspiration (4) Acute exacerbation of congestive heart failure: Qualifiers: Heart failure type: diastolic Qualified Code(s): I50.33 - Acute on chronic diastolic (congestive) heart failure Code(s): I50.9 - Heart failure, unspecified Status: Acute Assessment and Plan: Echo here revealed EF of 55% with diastolic dysfunction Grade I and moderate to severe with moderate MR. BNP 32K. CXR showing pulmonary edema. . Clinically better and CXR today still diffuse interstitial pattern after dialysis sessions . We continued HD to control fluid status. Lasix resumed. (5) Chronic progressive renal failure, stage 4 (severe): Code(s): N18.4 - Chronic kidney disease, stage 4 (severe) Status: Chronic Assessment and Plan: Cr was in the mid-2 range in December. Creatinine 3.1 on admission and increased to 3.3 the next day. Cr running 3.3-3.6 range for many days but then 4.1-4.5 and climbing despite being off his diuretics (held 02/15). Renal sonogram showed no hydro but distended bladder and over 600 ml residual so cath placed. No change in Cr since Ahuja placed so less likely from obstructive uropathy. Patient also confused which could be related to the azotemia. With continued evidence of fluid overload and uremia, he was started dialysis 02/22 and will continue dialysis Wednesday//Wednesday. one liter removed at dialysis 03/09 (6) Aortic stenosis: Onset Date: ~12/2019 Code(s): I35.0 - Nonrheumatic aortic (valve) stenosis Status: Acute Assessment and Plan: Echo showng moderate to severe with 1 cm2 valve area. Being followed by cardiology. (7) Chronic anemia: Code(s): D64.9 - Anemia, unspecified Status: Acute Assessment and Plan: Patient with chronic anemia mostly in the 10-11 prior to admission. Hgb had dropped into the 9 range but 11 now. [place] anemia of chronic disease with iron deficiency component as well. He completed IV iron x 5 days. Hgb 10.5 today 03/10 (8) Hypertension: Code(s): I10 - Essential (primary) hypertension Status: Acute Assessment and Plan: Patient's blood pressure was monitored closely Blood pressure remained mostly well controlled. We continued current medications coreg only (9) Type 2 diabetes mellitus with peripheral neuropathy: Code(s): E11.42 - Type 2 diabetes mellitus with diabetic polyneuropathy Status: Acute Assessment and Plan: Last A1c 5.6 in June. The patient's blood glucose was monitored closely Glucose remains wel
[2020-03-10 17:47] LABS: Glucose Point of Care 342 (65-105)
--- NOTE | 2020-03-10 23:06 | PC.NURSE ---
Tube Feed held at 2235 03/10/2020 due to suspected aspiration. Ventilator alarm was going off indicating low tidal volumes. Patient was suctioned when it was noted that suctioned secretions resembled tube feed. Tube feeds held, OG tube assessed and was 55 @ lip. OG pushed back to 60 @ lip where it was documented original placement and stat Imaging ordered to verify placement.
[2020-03-11] VITALS (29 sets, daily range): BP systolic 102–125; BP diastolic 51–62; PULSE 70–94; RESP 13–28; TEMP 36.6–38.8; O2SAT 92–100
[2020-03-11] MEDS: INSULIN ASPART (*BKC) 100 UNITS/ML SUB-Q ×4 (00:27→17:35)
--- NOTE | 2020-03-11 00:36 | PC.NURSE ---
Radiology report received and read. Recommended to advance OG tube by 2 cm. OG advanced by 2 cm to 62 @ lip. Tube feeds still on hold. Stat x-ray ordered to reverify OG placement.
[2020-03-11 01:06] LABS: Glucose Point of Care 288 (65-105)
[2020-03-11] MEDS: IPRATROPIUM BR 0.02% INH SOLN 0.5 MG/2.5 ML VIAL INHALATION ×4 (02:30→20:50)
[2020-03-11] MEDS: ALBUTEROL SULFATE NEB 2.5 MG/0.5 ML INH INHALATION ×4 (02:30→20:50)
[2020-03-11 04:09] LABS: Hemoglobin 10.5 g/dL (14.0-18.0); Mean Corpuscular HGB Conc 32.8 g/dl (32-36); Mean Corpuscular Hemoglobin 31.1 pg (26-34); Mean Corpuscular Volume 94.7 fl (80-100); Mean Platelet Volume 11.3 fl (7.4-10.4); Platelet Count Result 171 k/mm3 (150-375); Red Blood Count 3.38 M/mm3 (4.6-6.20); Red Cell Distribution Width 15.3 % (11.5-14.5); White Blood Count 12.1 K/mm3 (4.5-10.0)
[2020-03-11 04:33] LABS: Anion Gap 10 mmol/L (8-16); Blood Urea Nitrogen 113 mg/dL (9-20); Calcium 8.6 mg/dL (8.4-10.2); Carbon Dioxide 30 mmol/L (22-30); Chloride 97 mmol/L (98-107); Estimated CRCL calculation 9 ml/min; Estimated Glomerular Filt Rate 8; Glucose 229 mg/dL (75-110); Phosphorus 3.9 mg/dL (2.5-4.5); Potassium 4.2 mmol/L (3.4-5.0); Sodium 137 mmol/L (137-145)
[2020-03-11 04:46] LABS: Alveolar/Arterial O2 Gradient 108.9 mmHg; Base Excess ABG 0.6 mEq/l (+/-2.0); Carboxyhemoglobin 0.8 % THb (0-2.0); Fractional Inspired Oxygen 30 %; HCO3 ABG 23.9 mEq/l (22.0-26.0); Methemoglobin ABG 0.1 %THb (0-1.5); Oxygen Content ABG 17.2 %vol (16.0-22.0); Oxyhemoglobin 91.4 % THb (90.0-100.0); PCO2 ABG 34.1 mmHg (35.0-45.0); PO2 ABG 64.9 mmHg (80.0-100.0); PO2 FiO2 Ratio Arterial Blood 2.16 %; Reduced Hemoglobin 7.7 %THb (0-5.0); Total Hemoglobin 13.4 g/dL (12.0-18.0); pH ABG 7.463 (7.350-7.450)
[2020-03-11 04:47] LABS: Device VENTILATOR; Modified Allen's Test Unable to perform; Site Drawn RIGHT RADIAL
[2020-03-11 04:48] LABS: Arterial Blood Gas Minute Volume 6 LPM; Arterial Blood Gas PEEP 5 cmH2O; Arterial Blood Gas Vent Mode ASV
[2020-03-11] MEDS: GABAPENTIN 300 MG CAPSULE 600 MG PO (06:42)
[2020-03-11 06:54] LABS: Glucose Point of Care 215 (65-105)
--- NOTE | 2020-03-11 07:30 | WPDINTPN ---
Progress Note: A&P Assessment and Plan (1) Acute respiratory failure with hypoxia: Code(s): J96.01 - Acute respiratory failure with hypoxia Status: Acute Assessment and Plan: Secondary to congestive heart failure. COVID test negative 02/14/20 but positive 03/01. He does have evidence of aspiration with thin liquids. Multifactorial Will attempt weaning trial once mental status improves (2) Encephalopathy: Code(s): G93.40 - Encephalopathy, unspecified Status: Acute Assessment and Plan: From review of notes it appears the patient has been encephalopathic since admission. Now he has been on sedative infusion for multiple days which are obviously now on hold but patient still is not waking up. Patient is also uremic. Exam is nonfocal. He had a head CT last week which was unremarkable for any acute pathology I will check ammonia, discontinue Neurontin, continue to hold sedation and will wait for next dialysis session to clears his uremia and hopefully some of the sedatives and reassess (3) COVID-19: Code(s): U07.1 - COVID-19 Status: Acute Assessment and Plan: Patient tested negative 02/14/20 for COVID but now positive on 03/01/20 (done as a screening to go to the SNF; patient asymptomatic). It is unclear when he was exposed or how long he has had COVID. His O2 requirement had been stable for many days. He will complete a 10 day course of dexamethasone today (4) Acute exacerbation of congestive heart failure: Qualifiers: Heart failure type: diastolic Qualified Code(s): I50.33 - Acute on chronic diastolic (congestive) heart failure Code(s): I50.9 - Heart failure, unspecified Status: Acute Assessment and Plan: Echo here revealed EF of 55% with diastolic dysfunction Grade I and moderate to severe with moderate MR. BNP 32K. CXR showing pulmonary edema. . Continue to remove fluid with dialysis. (5) Chronic progressive renal failure, stage 4 (severe): Code(s): N18.4 - Chronic kidney disease, stage 4 (severe) Status: Chronic Assessment and Plan: Cr was in the mid-2 range in December. Creatinine 3.1 on admission and increased to 3.3 the next day. Cr running 3.3-3.6 range for many days but then 4.1-4.5 and climbing despite being off his diuretics (held 02/15). Renal sonogram showed no hydro but distended bladder and over 600 ml residual so cath placed. No change in Cr since Ahuja placed so less likely from obstructive uropathy. He was started dialysis 02/22 and will continue dialysis Wednesday//Wednesday. Continue dialysis per Nephrology Monitor electrolytes (6) Aortic stenosis: Onset Date: ~12/2019 Code(s): I35.0 - Nonrheumatic aortic (valve) stenosis Status: Acute Assessment and Plan: Echo showng moderate to severe with 1 cm2 valve area. Being followed by cardiology. (7) Chronic anemia: Code(s): D64.9 - Anemia, unspecified Status: Acute Assessment and Plan: Patient with chronic anemia mostly in the 10- prior to admission. Appears anemia of chronic disease and chronic kidney disease with iron deficiency component as well. He completed IV iron x 5 days. Hemoglobin remains stable (8) Hypertension: Code(s): I10 - Essential (primary) hypertension Status: Acute Assessment and Plan: Patient's blood pressure was monitored closely Blood pressure remained mostly well controlled. We continued current medications coreg only (9) Type 2 diabetes mellitus with peripheral neuropathy: Code(s): E11.42 - Type 2 diabetes mellitus with diabetic polyneuropathy Status: Acute Assessment and Plan: Continue sliding scale Increase Lantus (10) Urinary tract infection associated with catheterization of urinary tract: Qualifiers: Indwelling urinary catheter type: indwelling urethral catheter Encounter type: s
[2020-03-11] MEDS: DEXAMETHASONE 2 MG TABLET 6 MG PO (08:07)
[2020-03-11] MEDS: BETAMETHASONE/CLOTRIMAZOLE CR 15 GM TUBE 1 APPLIC TOPICAL ×2 (08:08→20:23)
[2020-03-11] MEDS: ATORVASTATIN 10 MG TABLET PO (08:08)
[2020-03-11] MEDS: FAMOTIDINE 20 MG/2 ML VIAL IV PUSH ×2 (08:09→20:23)
[2020-03-11] MEDS: FINASTERIDE 5 MG TABLET PO (08:09)
[2020-03-11] MEDS: HEPARIN SODIUM 5,000 UNITS/ML VIAL 5000 UNITS SUB-Q ×2 (08:10→20:23)
[2020-03-11] MEDS: MIDODRINE HCL 2.5 MG TABLET 5 MG PO ×3 (08:11→17:36)
[2020-03-11] MEDS: INSULIN GLARGINE (*BKC) 100 UNITS/ML 12 UNITS SUB-Q ×2 (08:22→20:23)
[2020-03-11 08:25] LABS: Glucose Point of Care 234 (65-105)
[2020-03-11] MEDS: ACETAMINOPHEN 325 MG TABLET 650 MG PO (10:54)
[2020-03-11] MEDS: polyethylene glycoL 3350 17 GM POWD.PACK PO (10:54)
--- NOTE | 2020-03-11 11:33 | PCDIET ---
ICU Rounding Note: Patient tolerating Nepro at 45mL/hr goal rate with 30mL water flush every 4 hours. Last recorded weight is 81.9kg which is increased from last review. +I/O. Bowel Motility: No documented BM. MD added Miralax daily and Dulcolax prn. Labs Reviewed: Hgb (10.5), Hct (32.0), Glu (229), BUN (113), Cr (6.5) Meds Noted: Albumin, Albuterol, Lipitor, Pepcid, Heparin, Novolog, Lantus, Atrovent, Midodrine, Dulcolax, Miralax Additional Notes: Bilateral buttocks reddened; multiple toe ulcers; friction areas to ankles. Following daily in ICU rounds. Assessing/reassessing every Wednesday/Wednesday.
[2020-03-11 13:47] LABS: Glucose Point of Care 356 (65-105)
[2020-03-11 17:53] LABS: Glucose Point of Care 357 (65-105)
--- NOTE | 2020-03-11 18:08 | P.PNNP_ITS ---
Progress Note: A&P Assessment and Plan (1) KENNY (acute kidney injury): Code(s): N17.9 - Acute kidney failure, unspecified Status: Acute Assessment and Plan: * is this really KENNY or is this just progression of his known CKD?? -- leaning towards the latter * given the multiple insults that has occurred during this hospitalization and his known baseline kidney disease, I have concerns that his kidney function may not recover and he may be dialysis dependent * volume status seems reasonable (euvolemic) * no critical electrolyte but clearance is an issue (high BUN/creatinine - although high BUN could be secondary to steroids) * HD tomorrow and continue T/T/S schedule for now (2) Chronic progressive renal failure, stage 4 (severe): Code(s): N18.4 - Chronic kidney disease, stage 4 (severe) Status: Chronic Assessment and Plan: * baseline creatinine runs around 2.5 - 2.8mg/dl * due to diabetes, hypertension, cardiac + vavlular heart disease (systolic + diastolic heart failure along with aortic stenosis) (3) Confusion: Code(s): R41.0 - Disorientation, unspecified Status: Acute Assessment and Plan: * etiology not clear * did have a component of uremic encephalopathy earlier during this hospitalization (improved with initiation of dialysis) * on ventilator support at this time (4) Acute respiratory failure: Code(s): J96.00 - Acute respiratory failure, unspecified whether with hypoxia or hypercapnia Status: Acute Assessment and Plan: * etiology not clear but suspicion falls on possible aspiration * CXR results noted * fluid removal with HD as tolerated by hemodynamics * wean as tolerated (assuming mental status improves) (5) Acute exacerbation of congestive heart failure: Qualifiers: Heart failure type: diastolic Qualified Code(s): I50.33 - Acute on chronic diastolic (congestive) heart failure Code(s): I50.9 - Heart failure, unspecified Status: Acute Assessment and Plan: * Cardiology following * volume status better * aggressive attempts at fluid removal with dialysis lead to significant hypotension (perhaps euvolemic despite CXR findings?) (6) Hypertension: Code(s): I10 - Essential (primary) hypertension Status: Acute Assessment and Plan: * reasonable control * follow trend of hemodynamics (7) Anemia: Code(s): D64.9 - Anemia, unspecified Status: Acute Assessment and Plan: * due to iron deficiency and underlying CKD * has been on Epogen with HD * follow trend of H/H (8) COVID-19: Code(s): U07.1 - COVID-19 Status: Acute Assessment and Plan: * testing positive * however, was asymptomatic when discovered * on steroids (likely contributing to elevated BUN) (9) Diabetes: Code(s): E11.9 - Type 2 diabetes mellitus without complications Status: Chronic Assessment and Plan: * on acchecks * on SSI Will continue to follow. Subjective Date/time seen: 03/11/20 18:08 No real significant change -- remains intubated; however, off sedation and not waking up much; stable hemodynamics at this time; no acute events overnight or earlier this AM. Exam Narrative: Exam Narrative: General: WD/WN male in NAD; intubated/sedated Heart: normal S1 and S2; 3/6 systolic ejection murmur Lungs: coarse breath sounds Abdomen: soft, nontender, nondistended, positive bowel sounds Extremities: no cyanosis or clubbing; tr
--- NOTE | 2020-03-11 18:08 | PM.PNNEP ---
Progress Note: A&P Assessment and Plan (1) KENNY (acute kidney injury): Code(s): N17.9 - Acute kidney failure, unspecified Status: Acute Assessment and Plan: is this really KENNY or is this just progression of his known CKD?? -- leaning towards the latter given the multiple insults that has occurred during this hospitalization and his known baseline kidney disease, I have concerns that his kidney function may not recover and he may be dialysis dependent volume status seems reasonable (euvolemic) no critical electrolyte but clearance is an issue (high BUN/creatinine - although high BUN could be secondary to steroids) HD tomorrow and continue T/T/S schedule for now (2) Chronic progressive renal failure, stage 4 (severe): Code(s): N18.4 - Chronic kidney disease, stage 4 (severe) Status: Chronic Assessment and Plan: baseline creatinine runs around 2.5 - 2.8mg/dl due to diabetes, hypertension, cardiac + vavlular heart disease (systolic + diastolic heart failure along with aortic stenosis) (3) Confusion: Code(s): R41.0 - Disorientation, unspecified Status: Acute Assessment and Plan: etiology not clear did have a component of uremic encephalopathy earlier during this hospitalization (improved with initiation of dialysis) on ventilator support at this time (4) Acute respiratory failure: Code(s): J96.00 - Acute respiratory failure, unspecified whether with hypoxia or hypercapnia Status: Acute Assessment and Plan: etiology not clear but suspicion falls on possible aspiration CXR results noted fluid removal with HD as tolerated by hemodynamics wean as tolerated (assuming mental status improves) (5) Acute exacerbation of congestive heart failure: Qualifiers: Heart failure type: diastolic Qualified Code(s): I50.33 - Acute on chronic diastolic (congestive) heart failure Code(s): I50.9 - Heart failure, unspecified Status: Acute Assessment and Plan: Cardiology following volume status better aggressive attempts at fluid removal with dialysis lead to significant hypotension (perhaps euvolemic despite CXR findings?) (6) Hypertension: Code(s): I10 - Essential (primary) hypertension Status: Acute Assessment and Plan: reasonable control follow trend of hemodynamics (7) Anemia: Code(s): D64.9 - Anemia, unspecified Status: Acute Assessment and Plan: due to iron deficiency and underlying CKD has been on Epogen with HD follow trend of H/H (8) COVID-19: Code(s): U07.1 - COVID-19 Status: Acute Assessment and Plan: testing positive however, was asymptomatic when discovered on steroids (likely contributing to elevated BUN) (9) Diabetes: Code(s): E11.9 - Type 2 diabetes mellitus without complications Status: Chronic Assessment and Plan: on acchecks on SSI Will continue to follow. Subjective Date/time seen: 03/11/20 18:08 No real significant change -- remains intubated; however, off sedation and not waking up much; stable hemodynamics at this time; no acute events overnight or earlier this AM. Exam Narrative: Exam Narrative: General: WD/WN male in NAD; intubated/sedated Heart: normal S1 and S2; 3/6 systolic ejection murmur Lungs: coarse breath sounds Abdomen: soft, nontender, nondistended, positive bowel sounds Extremities: no cyanosis or clubbing; trace edema Skin: no rash Objective Data Vital Signs Vital Signs: Vital Signs Temp Pulse Resp BP Pulse Ox 03/11/20 18:00 36.8 C 70 13 115/52 L 96 03/11/20 16:58 71 94 03/11/20 16:00 72 22 H 108/55 L 96 03/11/20 14:45 76 19 03/11/20 14:32 78 22 H 95 03/11/20 14:00 38.5 C H 81 22 H 107/54 L 94 03/11/20 13:56 81 03/11/20 12:00 38.8 C H 82 23 H 114/59 L 94 03/11/20 11:54 38.8 C H 03/11/20 11:10 88 95 12/0
--- NOTE | 2020-03-11 18:08 | PM.IMPN ---
Progress Note: A&P Assessment and Plan (1) COVID-19: Code(s): U07.1 - COVID-19 Status: Acute Assessment and Plan: Patient tested negative 02/14/20 for COVID but now positive on 03/01/20 (done as a screening to go to the SNF; patient asymptomatic). Patient has been afebrile since admission. It is unclear when he was exposed or how long he has had COVID. His O2 requirement had been stable for many days. finished Decadron today (D#10) given unclear how or when he might have contracted the virus. (2) Confusion: Code(s): R41.0 - Disorientation, unspecified Status: Acute Assessment and Plan: Patient confused 02/28. Labs, ABG and CXR okay. CT brain ordered but this also showing no acute changes. Symptoms improved after having HD 03/04. Could be COVID related but felt less likely. Plan for HD continue T//Wed, suspect uremia major cause but febrile again now (3) Acute respiratory failure with hypoxia: Code(s): J96.01 - Acute respiratory failure with hypoxia Status: Acute Assessment and Plan: Secondary to congestive heart failure. COVID test negative 02/14/20 but positive 03/01. He does have evidence of aspiration with thin liquids. Hypoxia could be related to dysphagia/aspiration as well. Tunnel cath placed 02/22 and now on HD. Diet adjusted. [facility], ? covid,chf, or aspiration (4) Acute exacerbation of congestive heart failure: Qualifiers: Heart failure type: diastolic Qualified Code(s): I50.33 - Acute on chronic diastolic (congestive) heart failure Code(s): I50.9 - Heart failure, unspecified Status: Acute Assessment and Plan: Echo here revealed EF of 55% with diastolic dysfunction Grade I and moderate to severe with moderate MR. BNP 32K. CXR showing pulmonary edema. . Clinically better and CXR today still diffuse interstitial pattern after dialysis sessions . We continued HD to control fluid status. Lasix resumed. (5) Chronic progressive renal failure, stage 4 (severe): Code(s): N18.4 - Chronic kidney disease, stage 4 (severe) Status: Chronic Assessment and Plan: Cr was in the mid-2 range in December. Creatinine 3.1 on admission and increased to 3.3 the next day. Cr running 3.3-3.6 range for many days but then 4.1-4.5 and climbing despite being off his diuretics (held 02/15). Renal sonogram showed no hydro but distended bladder and over 600 ml residual so cath placed. No change in Cr since Ahuja placed so less likely from obstructive uropathy. Patient also confused which could be related to the azotemia. With continued evidence of fluid overload and uremia, he was started dialysis 02/22 and will continue dialysis Wednesday//Wednesday. one liter removed at dialysis 03/09, (6) Aortic stenosis: Onset Date: ~12/2019 Code(s): I35.0 - Nonrheumatic aortic (valve) stenosis Status: Acute Assessment and Plan: Echo showng moderate to severe with 1 cm2 valve area. Being followed by cardiology. (7) Chronic anemia: Code(s): D64.9 - Anemia, unspecified Status: Acute Assessment and Plan: Patient with chronic anemia mostly in the 10-11 prior to admission. Hgb had dropped into the 9 range but 11 now. [place] anemia of chronic disease with iron deficiency component as well. He completed IV iron x 5 days. Hgb 10.5 again today 03/11 (8) Hypertension: Code(s): I10 - Essential (primary) hypertension Status: Acute Assessment and Plan: Patient's blood pressure was monitored closely Blood pressure remained mostly well controlled. We continued current medications coreg only (9) Type 2 diabetes mellitus with peripheral neuropathy: Code(s): E11.42 - Type 2 diabetes mellitus with diabetic polyneuropathy Status: Acute Assessment and Plan: Last A1c 5.6 in June.
[2020-03-12] VITALS (28 sets, daily range): BP systolic 100–134; BP diastolic 54–74; PULSE 70–91; RESP 20–29; TEMP 37.1–37.2; O2SAT 94–98
[2020-03-12] MEDS: INSULIN ASPART (*BKC) 100 UNITS/ML SUB-Q ×5 (00:16→23:06)
[2020-03-12 00:18] LABS: Glucose Point of Care 348 (65-105)
[2020-03-12] MEDS: IPRATROPIUM BR 0.02% INH SOLN 0.5 MG/2.5 ML VIAL INHALATION ×4 (01:23→20:50)
[2020-03-12] MEDS: ALBUTEROL SULFATE NEB 2.5 MG/0.5 ML INH INHALATION ×4 (01:24→20:50)
[2020-03-12 04:44] LABS: Alveolar/Arterial O2 Gradient 101.3 mmHg; Base Excess ABG 0.1 mEq/l (+/-2.0); Carboxyhemoglobin 0.3 % THb (0-2.0); Fractional Inspired Oxygen 30 %; HCO3 ABG 23.9 mEq/l (22.0-26.0); Methemoglobin ABG 0.2 %THb (0-1.5); Oxygen Content ABG 14.3 %vol (16.0-22.0); Oxyhemoglobin 92.9 % THb (90.0-100.0); PCO2 ABG 35.6 mmHg (35.0-45.0); PO2 ABG 70.8 mmHg (80.0-100.0); PO2 FiO2 Ratio Arterial Blood 2.36 %; Reduced Hemoglobin 6.6 %THb (0-5.0); Total Hemoglobin 10.9 g/dL (12.0-18.0); pH ABG 7.444 (7.350-7.450)
[2020-03-12 04:45] LABS: Device VENTILATOR; Modified Allen's Test Pass; Site Drawn RIGHT RADIAL
[2020-03-12 04:47] LABS: Arterial Blood Gas Minute Volume 100 LPM; Arterial Blood Gas PEEP 5 cmH2O; Arterial Blood Gas Vent Mode ASV
[2020-03-12 05:18] LABS: Glucose Point of Care 323 (65-105)
[2020-03-12 05:51] LABS: Hematocrit 28.5 % (42.0-52.0); Hemoglobin 9.4 g/dL (14.0-18.0); Mean Corpuscular Hemoglobin 31.8 pg (26-34); Mean Corpuscular Volume 96.3 fl (80-100); Mean Platelet Volume 11.7 fl (7.4-10.4); Platelet Count Result 160 k/mm3 (150-375); Red Blood Count 2.96 M/mm3 (4.6-6.20); Red Cell Distribution Width 15.5 % (11.5-14.5); White Blood Count 13.9 K/mm3 (4.5-10.0)
[2020-03-12 06:09] LABS: Anion Gap 16 mmol/L (8-16); Calcium 8.5 mg/dL (8.4-10.2); Carbon Dioxide 25 mmol/L (22-30); Chloride 95 mmol/L (98-107); Estimated CRCL calculation 8 ml/min; Estimated Glomerular Filt Rate 7; Glucose 331 mg/dL (75-110); Magnesium 3.1 mg/dL (1.6-2.3); Phosphorus 5.3 mg/dL (2.5-4.5); Potassium 4.7 mmol/L (3.4-5.0); Sodium 136 mmol/L (137-145)
[2020-03-12 06:52] LABS: Blood Urea Nitrogen 150 mg/dL (9-20)
[2020-03-12] MEDS: BETAMETHASONE/CLOTRIMAZOLE CR 15 GM TUBE 1 APPLIC TOPICAL ×2 (08:13→22:54)
[2020-03-12] MEDS: INSULIN GLARGINE (*BKC) 100 UNITS/ML 12 UNITS SUB-Q (08:15)
[2020-03-12] MEDS: HEPARIN SODIUM 5,000 UNITS/ML VIAL 5000 UNITS SUB-Q ×2 (08:16→22:55)
[2020-03-12] MEDS: FINASTERIDE 5 MG TABLET PO (08:16)
[2020-03-12] MEDS: ATORVASTATIN 10 MG TABLET PO (08:16)
[2020-03-12] MEDS: FAMOTIDINE 20 MG/2 ML VIAL IV PUSH ×2 (08:16→22:55)
[2020-03-12] MEDS: MIDODRINE HCL 2.5 MG TABLET 5 MG PO ×3 (08:17→16:47)
[2020-03-12] MEDS: polyethylene glycoL 3350 17 GM POWD.PACK PO (08:17)
[2020-03-12 08:40] LABS: Glucose Point of Care 313 (65-105)
--- NOTE | 2020-03-12 08:50 | WPDINTPN ---
Progress Note: A&P Assessment and Plan (1) Acute respiratory failure with hypoxia: Code(s): J96.01 - Acute respiratory failure with hypoxia Status: Acute Assessment and Plan: Secondary to congestive heart failure. COVID test negative 02/14/20 but positive 03/01. He does have evidence of aspiration with thin liquids. Multifactorial Will attempt weaning trial once patient is dialyzed today and hopefully mental status improves (2) Encephalopathy: Code(s): G93.40 - Encephalopathy, unspecified Status: Acute Assessment and Plan: From review of notes it appears the patient has been encephalopathic since admission. Now he has been on sedative infusion for multiple days which are obviously now on hold but patient still is not waking up. Mental status is marginally better than yesterday. Patient is also significantly uremic. Exam is nonfocal. He had a head CT last week which was unremarkable for any acute pathology. This appears to be toxic metabolic encephalopathy and uremia. Neurontin was discontinued yesterday and ammonia level was normal I continue to hold sedation and will wait for next dialysis session to clears his uremia and hopefully some of the sedatives and reassess. Patient is scheduled for dialysis today (3) COVID-19: Code(s): U07.1 - COVID-19 Status: Acute Assessment and Plan: Patient tested negative 02/14/20 for COVID but now positive on 03/01/20 (done as a screening to go to the SNF; patient asymptomatic). It is unclear when he was exposed or how long he has had COVID. His O2 requirement had been stable for many days. He will complete a 10 day course of dexamethasone today (4) Acute exacerbation of congestive heart failure: Qualifiers: Heart failure type: diastolic Qualified Code(s): I50.33 - Acute on chronic diastolic (congestive) heart failure Code(s): I50.9 - Heart failure, unspecified Status: Acute Assessment and Plan: Echo here revealed EF of 55% with diastolic dysfunction Grade I and moderate to severe with moderate MR. BNP 32K. CXR showing pulmonary edema. . Continue to remove fluid with dialysis. (5) Chronic progressive renal failure, stage 4 (severe): Code(s): N18.4 - Chronic kidney disease, stage 4 (severe) Status: Chronic Assessment and Plan: Cr was in the mid-2 range in December. Creatinine 3.1 on admission and increased to 3.3 the next day. Cr running 3.3-3.6 range for many days but then 4.1-4.5 and climbing despite being off his diuretics (held 02/15). Renal sonogram showed no hydro but distended bladder and over 600 ml residual so cath placed. No change in Cr since Ahuja placed so less likely from obstructive uropathy. He was started dialysis 02/22 and will continue dialysis Wednesday//Wednesday. Continue dialysis per Nephrology Monitor electrolytes (6) Aortic stenosis: Onset Date: ~12/2019 Code(s): I35.0 - Nonrheumatic aortic (valve) stenosis Status: Acute Assessment and Plan: Echo showng moderate to severe with 1 cm2 valve area. Being followed by cardiology. (7) Chronic anemia: Code(s): D64.9 - Anemia, unspecified Status: Acute Assessment and Plan: Patient with chronic anemia mostly in the 10- prior to admission. Appears anemia of chronic disease and chronic kidney disease with iron deficiency component as well. He completed IV iron x 5 days. Hemoglobin remains stable (8) Hypertension: Code(s): I10 - Essential (primary) hypertension Status: Acute Assessment and Plan: Patient's blood pressure was monitored closely Blood pressure remained mostly well controlled. We continued current medications coreg only (9) Type 2 diabetes mellitus with peripheral neuropathy: Code(s): E11.42 - Type 2 diabetes mellitus with diabetic polyneuropathy Status: Acute Assessment and Plan:
[2020-03-12] MEDS: INSULIN GLARGINE (*BKC) 100 UNITS/ML 15 UNITS SUB-Q (09:29)
--- NOTE | 2020-03-12 09:54 | P.PNNP_ITS ---
Progress Note: A&P Assessment and Plan (1) KENNY (acute kidney injury): Code(s): N17.9 - Acute kidney failure, unspecified Status: Acute Assessment and Plan: * is this really KENNY or is this just progression of his known CKD?? -- leaning towards the latter * given the multiple insults that has occurred during this hospitalization and his known baseline kidney disease, I have concerns that his kidney function may not recover and he may be dialysis dependent * volume status seems reasonable (euvolemic) * no critical electrolyte but clearance is an issue (high BUN/creatinine - although high BUN could be secondary to steroids) * HD today and continue T/T/S schedule for now (2) Chronic progressive renal failure, stage 4 (severe): Code(s): N18.4 - Chronic kidney disease, stage 4 (severe) Status: Chronic Assessment and Plan: * baseline creatinine runs around 2.5 - 2.8mg/dl * due to diabetes, hypertension, cardiac + vavlular heart disease (systolic + diastolic heart failure along with aortic stenosis) (3) Confusion: Code(s): R41.0 - Disorientation, unspecified Status: Acute Assessment and Plan: * etiology not clear * did have a component of uremic encephalopathy earlier during this hospitalization (improved with initiation of dialysis) * on ventilator support at this time (4) Acute respiratory failure: Code(s): J96.00 - Acute respiratory failure, unspecified whether with hypoxia or hypercapnia Status: Acute Assessment and Plan: * etiology not clear but suspicion falls on possible aspiration * CXR results noted * fluid removal with HD as tolerated by hemodynamics * wean as tolerated (assuming mental status improves) (5) Acute exacerbation of congestive heart failure: Qualifiers: Heart failure type: diastolic Qualified Code(s): I50.33 - Acute on chronic diastolic (congestive) heart failure Code(s): I50.9 - Heart failure, unspecified Status: Acute Assessment and Plan: * Cardiology following * volume status better * aggressive attempts at fluid removal with dialysis lead to significant hypotension (perhaps euvolemic despite CXR findings?) (6) Hypertension: Code(s): I10 - Essential (primary) hypertension Status: Acute Assessment and Plan: * reasonable control * follow trend of hemodynamics (7) Anemia: Code(s): D64.9 - Anemia, unspecified Status: Acute Assessment and Plan: * due to iron deficiency and underlying CKD * has been on Epogen with HD * follow trend of H/H (8) COVID-19: Code(s): U07.1 - COVID-19 Status: Acute Assessment and Plan: * testing positive * however, was asymptomatic when discovered * on steroids (likely contributing to elevated BUN) (9) UTI (urinary tract infection): Code(s): N39.0 - Urinary tract infection, site not specified Status: Acute Assessment and Plan: * urine culture with Pseudomonas * geiger catheter changed out * on antibiotics * etiology for altered mentation(?) (10) Diabetes: Code(s): E11.9 - Type 2 diabetes mellitus without complications Status: Chronic Assessment and Plan: * on acchecks * on SSI Will continue to follow. Subjective Date/time seen: 03/12/20 09:54 Remains on ventilatory support with fluctuating mentation; due for dialysis today; off sedation and still very drowsy/confused; no acute issue overnight or earlier this AM.
--- NOTE | 2020-03-12 09:54 | PM.PNNEP ---
Progress Note: A&P Assessment and Plan (1) KENNY (acute kidney injury): Code(s): N17.9 - Acute kidney failure, unspecified Status: Acute Assessment and Plan: is this really KENNY or is this just progression of his known CKD?? -- leaning towards the latter given the multiple insults that has occurred during this hospitalization and his known baseline kidney disease, I have concerns that his kidney function may not recover and he may be dialysis dependent volume status seems reasonable (euvolemic) no critical electrolyte but clearance is an issue (high BUN/creatinine - although high BUN could be secondary to steroids) HD today and continue T/T/S schedule for now (2) Chronic progressive renal failure, stage 4 (severe): Code(s): N18.4 - Chronic kidney disease, stage 4 (severe) Status: Chronic Assessment and Plan: baseline creatinine runs around 2.5 - 2.8mg/dl due to diabetes, hypertension, cardiac + vavlular heart disease (systolic + diastolic heart failure along with aortic stenosis) (3) Confusion: Code(s): R41.0 - Disorientation, unspecified Status: Acute Assessment and Plan: etiology not clear did have a component of uremic encephalopathy earlier during this hospitalization (improved with initiation of dialysis) on ventilator support at this time (4) Acute respiratory failure: Code(s): J96.00 - Acute respiratory failure, unspecified whether with hypoxia or hypercapnia Status: Acute Assessment and Plan: etiology not clear but suspicion falls on possible aspiration CXR results noted fluid removal with HD as tolerated by hemodynamics wean as tolerated (assuming mental status improves) (5) Acute exacerbation of congestive heart failure: Qualifiers: Heart failure type: diastolic Qualified Code(s): I50.33 - Acute on chronic diastolic (congestive) heart failure Code(s): I50.9 - Heart failure, unspecified Status: Acute Assessment and Plan: Cardiology following volume status better aggressive attempts at fluid removal with dialysis lead to significant hypotension (perhaps euvolemic despite CXR findings?) (6) Hypertension: Code(s): I10 - Essential (primary) hypertension Status: Acute Assessment and Plan: reasonable control follow trend of hemodynamics (7) Anemia: Code(s): D64.9 - Anemia, unspecified Status: Acute Assessment and Plan: due to iron deficiency and underlying CKD has been on Epogen with HD follow trend of H/H (8) COVID-19: Code(s): U07.1 - COVID-19 Status: Acute Assessment and Plan: testing positive however, was asymptomatic when discovered on steroids (likely contributing to elevated BUN) (9) UTI (urinary tract infection): Code(s): N39.0 - Urinary tract infection, site not specified Status: Acute Assessment and Plan: urine culture with Pseudomonas geiger catheter changed out on antibiotics etiology for altered mentation(?) (10) Diabetes: Code(s): E11.9 - Type 2 diabetes mellitus without complications Status: Chronic Assessment and Plan: on acchecks on SSI Will continue to follow. Subjective Date/time seen: 03/12/20 09:54 Remains on ventilatory support with fluctuating mentation; due for dialysis today; off sedation and still very drowsy/confused; no acute issue overnight or earlier this AM. Exam Narrative: Exam Narrative: General: WD/WN male in NAD; intubated/sedated Heart: normal S1 and S2; 3/6 systolic ejection murmur Lungs: coarse breath sounds Abdomen: soft, nontender, nondistended, positive bowel sounds Extremities: no cyanosis or clubbing; trace edema Skin: intact Objective Data Vital Signs Vital Signs: Vital Signs Temp Pulse Resp BP Pulse Ox 03/12/20 08:00 37.2 C 78 23 H 110/59 L 94 03/12/20 07:40 78 95 03/12/20 06:00 77
--- NOTE | 2020-03-12 11:19 | PCDIET ---
Nutrition Follow-Up Complete: Nutrition Diagnosis: Inadequate oral intake related to oral intubation as evidenced by NPO status. Nutrition Goal: Patient to meet estimated nutritional needs. Goal met. Patient tolerating Nepro at goal of 45mL/hr with 30mL water flush every 4 hours. Plan for hemodialysis today. Last recorded weight is 81.7 kg which is stable with last review. Bowel Motility: No BM, per RN. Miralax given. If no result, would consider additional medication. Labs Reviewed: Hgb (9.4), Hct (28.5), Glu (331), BUN (150), Cr (7.8), Na (136), PO4 (5.3), Mg (3.1) Meds Noted: Albumin, Albuterol, Cefepime, Pepcid, Heparin, Novolog, Lantus, Atrovent, Miralax Additional Notes: Lantus increased today. No change in skin reported. Will continue to monitor with same goal. Nutrition Monitoring and Evaluation: Follow up every Wednesday/Wednesday.
[2020-03-12 11:41] LABS: Glucose Point of Care 365 (65-105)
[2020-03-12 14:18] LABS: Procalcitonin 0.52 ng/mL (<0.10)
--- NOTE | 2020-03-12 16:00 | PM.IMPN ---
Progress Note: A&P Assessment and Plan (1) COVID-19: Code(s): U07.1 - COVID-19 Status: Acute Assessment and Plan: Patient tested negative 02/14/20 for COVID but now positive on 03/01/20 (done as a screening to go to the SNF; patient asymptomatic). Patient has been afebrile since admission. It is unclear when he was exposed or how long he has had COVID. His O2 requirement had been stable for many days. finished Decadron 03/11 given unclear how or when he might have contracted the virus. (2) Confusion: Code(s): R41.0 - Disorientation, unspecified Status: Acute Assessment and Plan: Patient confused 02/28. Labs, ABG and CXR okay. CT brain ordered but this also showing no acute changes. Symptoms improved after having HD 03/04. Could be COVID related but felt less likely. Plan for HD continue //, suspect uremia major cause but febrile again now. See below. (3) Acute respiratory failure with hypoxia: Code(s): J96.01 - Acute respiratory failure with hypoxia Status: Acute Assessment and Plan: Secondary to congestive heart failure. COVID test negative 02/14/20 but positive 03/01. He does have evidence of aspiration with thin liquids. Hypoxia could be related to dysphagia/aspiration as well. Tunnel cath placed 02/22 and now on HD. Diet adjusted. Progressed to intubation pm 03/07 with [facility] ventilation, ? covid, chf, and/or aspiration. (4) Acute exacerbation of congestive heart failure: Qualifiers: Heart failure type: diastolic Qualified Code(s): I50.33 - Acute on chronic diastolic (congestive) heart failure Code(s): I50.9 - Heart failure, unspecified Status: Acute Assessment and Plan: Echo here revealed EF of 55% with diastolic dysfunction Grade I and moderate to severe with moderate MR. BNP 32K. CXR showing pulmonary edema. . Clinically better and CXR today still mild interstitial and airspace disease. Continue HD to control fluid status. (5) Chronic progressive renal failure, stage 4 (severe): Code(s): N18.4 - Chronic kidney disease, stage 4 (severe) Status: Chronic Assessment and Plan: Cr was in the mid-2 range in December. Creatinine 3.1 on admission and increased to 3.3 the next day. Cr running 3.3-3.6 range for many days but then 4.1-4.5 and climbing despite being off his diuretics (held 02/15). Renal sonogram showed no hydro but distended bladder and over 600 ml residual so cath placed. No change in Cr since Ahuja placed so less likely from obstructive uropathy. Patient also confused which could be related to the azotemia. With continued evidence of fluid overload and uremia, he was started dialysis 02/22 and will continue dialysis Wednesday//Wednesday. One liter removed at dialysis 03/09. HD today. (6) Aortic stenosis: Onset Date: ~12/2019 Code(s): I35.0 - Nonrheumatic aortic (valve) stenosis Status: Acute Assessment and Plan: Echo showng moderate to severe with 1 cm2 valve area. Being followed by cardiology. (7) Chronic anemia: Code(s): D64.9 - Anemia, unspecified Status: Acute Assessment and Plan: Patient with chronic anemia mostly in the 10-11 prior to admission. Hgb had dropped into the 9 range. [place] anemia of chronic disease with iron deficiency component as well. He completed IV iron x 5 days. Follow. (8) Hypertension: Code(s): I10 - Essential (primary) hypertension Status: Acute Assessment and Plan: Patient's blood pressure monitored closely Blood pressure remained mostly well controlled. Coreg stopped and currently on Midodrine. (9) Type 2 diabetes mellitus with peripheral neuropathy: Code(s): E11.42 - Type 2 diabetes mellitus with diabetic polyneuropathy Status: Acute Assessment and Plan: Last A1c 5.6 in June. The patient's blood glucose monitored closely. Glu
[2020-03-12 17:54] LABS: Glucose Point of Care 360 (65-105)
[2020-03-12] MEDS: EPOETIN ALFA-EPBX 10,000 UNITS/ML VIAL 10000 UNITS IV PUSH (22:56)
[2020-03-12 23:20] LABS: Glucose Point of Care 222 (65-105)
[2020-03-13] VITALS (36 sets, daily range): BP systolic 81–130; BP diastolic 42–69; PULSE 61–96; RESP 16–28; TEMP 36–37.7; O2SAT 90–97
[2020-03-13] MEDS: CEFEPIME 0.5 GM in DEXTROSE 5% IN WATER 50 ML IVPB (01:23)
[2020-03-13] MEDS: ALBUTEROL SULFATE NEB 2.5 MG/0.5 ML INH INHALATION ×3 (02:14→21:34)
[2020-03-13] MEDS: IPRATROPIUM BR 0.02% INH SOLN 0.5 MG/2.5 ML VIAL INHALATION ×3 (02:14→21:34)
[2020-03-13 05:04] LABS: Alveolar/Arterial O2 Gradient 181.4 mmHg; Base Excess ABG 4.3 mEq/l (+/-2.0); Carboxyhemoglobin 0.3 % THb (0-2.0); Fractional Inspired Oxygen 40 %; HCO3 ABG 27.2 mEq/l (22.0-26.0); Methemoglobin ABG 0.1 %THb (0-1.5); Oxygen Content ABG 12.9 %vol (16.0-22.0); Oxygen Saturation ABG 94.6 % (95.0-100.0); Oxyhemoglobin 92.3 % THb (90.0-100.0); PCO2 ABG 34.2 mmHg (35.0-45.0); PO2 ABG 64.5 mmHg (80.0-100.0); PO2 FiO2 Ratio Arterial Blood 1.61 %; Reduced Hemoglobin 7.3 %THb (0-5.0); Total Hemoglobin 9.9 g/dL (12.0-18.0)
[2020-03-13 05:05] LABS: pH ABG 7.519 (7.350-7.450)
[2020-03-13 05:06] LABS: Arterial Blood Gas PEEP 5 cmH2O; Arterial Blood Gas Vent Mode ASV; Device VENTILATOR; Modified Allen's Test Unable to perform; Site Drawn LEFT RADIAL
[2020-03-13 05:44] LABS: Basophils Percent Auto 0.1 % (0.2-1.2); Eosinophils Percent Auto 0.1 % (0-4.4); Hematocrit 26.4 % (42.0-52.0); Hemoglobin 8.7 g/dL (14.0-18.0); Immature Granulocyte Absolute 0.37 K/mm3 (0.00-0.031); Immature Granulocyte Percent A 2.7 % (0-0.5); Lymphocytes Absolute Auto 0.77 K/mm3 (0.9-3.2); Lymphocytes Percent Auto 5.6 % (18.3-44.2); Mean Corpuscular Hemoglobin 31.9 pg (26-34); Mean Corpuscular Volume 96.7 fl (80-100); Mean Platelet Volume 11.9 fl (7.4-10.4); Monocytes Absolute Auto 1.3 K/mm3 (0.1-0.6); Monocytes Percent Auto 9.3 % (2.6-8.5); Neutrophils Absolute Auto 11.3 K/mm3 (1.3-6.7); Neutrophils Percent Auto 82.2 % (45.5-73.1); Platelet Count Result 153 k/mm3 (150-375); Red Blood Count 2.73 M/mm3 (4.6-6.20); Red Cell Distribution Width 15.6 % (11.5-14.5); White Blood Count 13.8 K/mm3 (4.5-10.0)
[2020-03-13] MEDS: INSULIN ASPART (*BKC) 100 UNITS/ML SUB-Q (05:55)
[2020-03-13 06:06] LABS: Alanine Aminotransferase 61 U/L (4-50); Albumin Level 3.1 g/dL (3.5-5.1); Alkaline Phosphatase 52 U/L (38-126); Anion Gap 7 mmol/L (8-16); Aspartate Amino Transferase 68 U/L (17-59); Bilirubin,Total 0.6 mg/dL (0.2-1.3); Blood Urea Nitrogen 82 mg/dL (9-20); Calcium 8.2 mg/dL (8.4-10.2); Carbon Dioxide 34 mmol/L (22-30); Chloride 95 mmol/L (98-107); Estimated CRCL calculation 11 ml/min; Estimated Glomerular Filt Rate 10; Glucose 212 mg/dL (75-110); Magnesium 2.5 mg/dL (1.6-2.3); Phosphorus 4.3 mg/dL (2.5-4.5); Potassium 4.5 mmol/L (3.4-5.0); Sodium 136 mmol/L (137-145)
[2020-03-13 06:16] LABS: CRP 12.9 mg/dL (<1.0)
[2020-03-13 06:31] LABS: Glucose Point of Care 225 (65-105)
[2020-03-13] MEDS: polyethylene glycoL 3350 17 GM POWD.PACK PO (08:45)
[2020-03-13] MEDS: FAMOTIDINE 20 MG/2 ML VIAL IV PUSH ×2 (08:45→20:26)
[2020-03-13] MEDS: MIDODRINE HCL 2.5 MG TABLET 5 MG PO ×3 (08:45→17:44)
[2020-03-13] MEDS: BETAMETHASONE/CLOTRIMAZOLE CR 15 GM TUBE 1 APPLIC TOPICAL ×2 (08:45→20:25)
[2020-03-13] MEDS: FINASTERIDE 5 MG TABLET PO (08:45)
[2020-03-13] MEDS: ATORVASTATIN 10 MG TABLET PO (08:45)
[2020-03-13] MEDS: HEPARIN SODIUM 5,000 UNITS/ML VIAL 5000 UNITS SUB-Q ×2 (08:46→20:26)
[2020-03-13] MEDS: INSULIN GLARGINE (*BKC) 100 UNITS/ML 30 UNITS SUB-Q (08:55)
[2020-03-13 11:17] LABS: Glucose Point of Care 193 (65-105)
--- NOTE | 2020-03-13 12:34 | WPDINTPN ---
Progress Note: A&P Assessment and Plan (1) Acute respiratory failure with hypoxia: Code(s): J96.01 - Acute respiratory failure with hypoxia Status: Acute Assessment and Plan: Secondary to congestive heart failure. COVID test negative 02/14/20 but positive 03/01. He does have evidence of aspiration with thin liquids. Multifactorial Will attempt weaning trial once patient mental status improves (2) Encephalopathy: Code(s): G93.40 - Encephalopathy, unspecified Status: Acute Assessment and Plan: From review of notes it appears the patient has been encephalopathic since admission. Now he has been on sedative infusion for multiple days which are obviously now on hold but patient still is not waking up. Mental status has not improved significantly since yesterday. Patient was dialyzed yesterday but still BUN level is in 80s. Exam is nonfocal. He had a head CT last week which was unremarkable for any acute pathology. Head CT was repeated today 03/13 and again showed no acute change This appears to be toxic metabolic encephalopathy and uremia. Neurontin was discontinued 03/11 and ammonia level was normal I continue to hold sedation. Requested nephrology to dialyzed patient again today Will consult neurology (3) COVID-19: Code(s): U07.1 - COVID-19 Status: Acute Assessment and Plan: Patient tested negative 02/14/20 for COVID but now positive on 03/01/20 (done as a screening to go to the SNF; patient asymptomatic). It is unclear when he was exposed or how long he has had COVID. His O2 requirement had been stable for many days. He will complete a 10 day course of dexamethasone today (4) Acute exacerbation of congestive heart failure: Qualifiers: Heart failure type: diastolic Qualified Code(s): I50.33 - Acute on chronic diastolic (congestive) heart failure Code(s): I50.9 - Heart failure, unspecified Status: Acute Assessment and Plan: Echo here revealed EF of 55% with diastolic dysfunction Grade I and moderate to severe with moderate MR. BNP 32K. CXR showing pulmonary edema. . Continue to remove fluid with dialysis. (5) Chronic progressive renal failure, stage 4 (severe): Code(s): N18.4 - Chronic kidney disease, stage 4 (severe) Status: Chronic Assessment and Plan: Cr was in the mid-2 range in December. Creatinine 3.1 on admission and increased to 3.3 the next day. Cr running 3.3-3.6 range for many days but then 4.1-4.5 and climbing despite being off his diuretics (held 02/15). Renal sonogram showed no hydro but distended bladder and over 600 ml residual so cath placed. No change in Cr since Ahuja placed so less likely from obstructive uropathy. He was started dialysis 02/22 and will continue dialysis Wednesday//Wednesday. Continue dialysis per Nephrology Monitor electrolytes (6) Aortic stenosis: Onset Date: ~12/2019 Code(s): I35.0 - Nonrheumatic aortic (valve) stenosis Status: Acute Assessment and Plan: Echo showng moderate to severe with 1 cm2 valve area. Being followed by cardiology. (7) Chronic anemia: Code(s): D64.9 - Anemia, unspecified Status: Acute Assessment and Plan: Patient with chronic anemia mostly in the 10- prior to admission. Appears anemia of chronic disease and chronic kidney disease with iron deficiency component as well. He completed IV iron x 5 days. Monitor hemoglobin (8) Hypertension: Code(s): I10 - Essential (primary) hypertension Status: Acute Assessment and Plan: Patient's blood pressure was monitored closely Blood pressure remained mostly well controlled. We continued current medications coreg only (9) Type 2 diabetes mellitus with peripheral neuropathy: Code(s): E11.42 - Type 2 diabetes mellitus with diabetic polyneuropathy Status: Acute Assessment and Plan: Continue
--- NOTE | 2020-03-13 13:01 | PCDIET ---
ICU Rounding Note: Tube feedings held this morning for emesis. Patient was tolerating feedings prior to that. MD ordered to resume tube feedings. Last recorded weight is 78.2kg which is decreased from last review, despite +I/O. Will monitor. Bowel Motility: No documented BM. Miralax given today. Recommend additional medication to promote BM if medically appropriate. Labs Reviewed: Hgb (8.7), Hct (26.4), Glu (212), BUN (82), Cr (5.70), Na (136), Alb (3.1), Mg (2.5) Meds Noted: Albumin, Albuterol, Lipitor, Cefepime, Pepcid, Heparin, Novolog, Lantus, Atrovent, Miralax Additional Notes: No change in skin reported. Following daily in ICU rounds. Assessing/reassessing every Wednesday/Wednesday.
[2020-03-13] MEDS: EPOETIN ALFA-EPBX 10,000 UNITS/ML VIAL 10000 UNITS IV PUSH (15:11)
--- NOTE | 2020-03-13 16:36 | P.PNNP_ITS ---
Progress Note: A&P Assessment and Plan (1) KENNY (acute kidney injury): Code(s): N17.9 - Acute kidney failure, unspecified Status: Acute Assessment and Plan: * is this really KENNY or is this just progression of his known CKD?? -- leaning towards the latter * given the multiple insults that has occurred during this hospitalization and his known baseline kidney disease, I have concerns that his kidney function may not recover and he may be dialysis dependent * volume status seems reasonable (euvolemic) * no critical electrolyte but clearance is an issue (high BUN/creatinine - although high BUN could be secondary to steroids) * HD today at the request of body painter for further clearance of uremic toxins (2) Chronic progressive renal failure, stage 4 (severe): Code(s): N18.4 - Chronic kidney disease, stage 4 (severe) Status: Chronic Assessment and Plan: * baseline creatinine runs around 2.5 - 2.8mg/dl * due to diabetes, hypertension, cardiac + vavlular heart disease (systolic + diastolic heart failure along with aortic stenosis) (3) Confusion: Code(s): R41.0 - Disorientation, unspecified Status: Acute Assessment and Plan: * etiology not clear * did have a component of uremic encephalopathy earlier during this hospitalization (improved with initiation of dialysis) * secondary to UTI?? * HD today for further clearance to see if this helps improve mentation * on ventilator support at this time (4) Acute respiratory failure: Code(s): J96.00 - Acute respiratory failure, unspecified whether with hypoxia or hypercapnia Status: Acute Assessment and Plan: * etiology not clear but suspicion falls on possible aspiration * CXR results noted * fluid removal with HD as tolerated by hemodynamics * wean as tolerated (assuming mental status improves) (5) Acute exacerbation of congestive heart failure: Qualifiers: Heart failure type: diastolic Qualified Code(s): I50.33 - Acute on chronic diastolic (congestive) heart failure Code(s): I50.9 - Heart failure, unspecified Status: Acute Assessment and Plan: * volume status better * aggressive attempts at fluid removal with dialysis lead to significant hypotension (perhaps euvolemic despite CXR findings?) (6) Hypertension: Code(s): I10 - Essential (primary) hypertension Status: Acute Assessment and Plan: * reasonable control * follow trend of hemodynamics (7) Anemia: Code(s): D64.9 - Anemia, unspecified Status: Acute Assessment and Plan: * due to iron deficiency and underlying CKD * has been on Epogen with HD * follow trend of H/H (8) COVID-19: Code(s): U07.1 - COVID-19 Status: Acute Assessment and Plan: * testing positive * however, was asymptomatic when discovered * on steroids (likely contributing to elevated BUN) (9) UTI (urinary tract infection): Code(s): N39.0 - Urinary tract infection, site not specified Status: Acute Assessment and Plan: * urine culture with Pseudomonas * geiger catheter changed out * on antibiotics * etiology for altered mentation(?) (10) Diabetes: Code(s): E11.9 - Type 2 diabetes mellitus without complications Status: Chronic Assessment and Plan: * on acchecks * on SSI Will continue to follow. Subjective Date/time seen: 03/13/20 16:36 Tolerated dialysis yesterday evening without issues; tolerating dialysis
--- NOTE | 2020-03-13 16:36 | PM.PNNEP ---
Progress Note: A&P Assessment and Plan (1) KENNY (acute kidney injury): Code(s): N17.9 - Acute kidney failure, unspecified Status: Acute Assessment and Plan: is this really KENNY or is this just progression of his known CKD?? -- leaning towards the latter given the multiple insults that has occurred during this hospitalization and his known baseline kidney disease, I have concerns that his kidney function may not recover and he may be dialysis dependent volume status seems reasonable (euvolemic) no critical electrolyte but clearance is an issue (high BUN/creatinine - although high BUN could be secondary to steroids) HD today at the request of reservation sales agent for further clearance of uremic toxins (2) Chronic progressive renal failure, stage 4 (severe): Code(s): N18.4 - Chronic kidney disease, stage 4 (severe) Status: Chronic Assessment and Plan: baseline creatinine runs around 2.5 - 2.8mg/dl due to diabetes, hypertension, cardiac + vavlular heart disease (systolic + diastolic heart failure along with aortic stenosis) (3) Confusion: Code(s): R41.0 - Disorientation, unspecified Status: Acute Assessment and Plan: etiology not clear did have a component of uremic encephalopathy earlier during this hospitalization (improved with initiation of dialysis) secondary to UTI?? HD today for further clearance to see if this helps improve mentation on ventilator support at this time (4) Acute respiratory failure: Code(s): J96.00 - Acute respiratory failure, unspecified whether with hypoxia or hypercapnia Status: Acute Assessment and Plan: etiology not clear but suspicion falls on possible aspiration CXR results noted fluid removal with HD as tolerated by hemodynamics wean as tolerated (assuming mental status improves) (5) Acute exacerbation of congestive heart failure: Qualifiers: Heart failure type: diastolic Qualified Code(s): I50.33 - Acute on chronic diastolic (congestive) heart failure Code(s): I50.9 - Heart failure, unspecified Status: Acute Assessment and Plan: volume status better aggressive attempts at fluid removal with dialysis lead to significant hypotension (perhaps euvolemic despite CXR findings?) (6) Hypertension: Code(s): I10 - Essential (primary) hypertension Status: Acute Assessment and Plan: reasonable control follow trend of hemodynamics (7) Anemia: Code(s): D64.9 - Anemia, unspecified Status: Acute Assessment and Plan: due to iron deficiency and underlying CKD has been on Epogen with HD follow trend of H/H (8) COVID-19: Code(s): U07.1 - COVID-19 Status: Acute Assessment and Plan: testing positive however, was asymptomatic when discovered on steroids (likely contributing to elevated BUN) (9) UTI (urinary tract infection): Code(s): N39.0 - Urinary tract infection, site not specified Status: Acute Assessment and Plan: urine culture with Pseudomonas geiger catheter changed out on antibiotics etiology for altered mentation(?) (10) Diabetes: Code(s): E11.9 - Type 2 diabetes mellitus without complications Status: Chronic Assessment and Plan: on acchecks on SSI Will continue to follow. Subjective Date/time seen: 03/13/20 16:36 Tolerated dialysis yesterday evening without issues; tolerating dialysis at the time of my visit (seen on HD at ~ 4:00PM); BP at bit on the soft side currently; remains intubated but remains encephalopathic; no events overnight or earlier this AM; repeat CT scan of head results noted. Exam Narrative: Exam Narrative: General: WD/WN male in NAD; remains intubated Heart: normal S1 and S2; 3/6 systolic ejection murmur Lungs: coarse breath sounds Abdomen: soft, nontender, nondistended, positive bowel sounds Extremities: no cyanosis or clubbing;
[2020-03-13 17:38] LABS: Glucose Point of Care 148 (65-105)
[2020-03-13] MEDS: ALBUMIN HUMAN 25% 12.5 GM/50ML 50 ML IVPB (17:46)
--- NOTE | 2020-03-13 21:00 | PM.IMPN ---
Progress Note: A&P Assessment and Plan (1) COVID-19: Code(s): U07.1 - COVID-19 Status: Acute Assessment and Plan: Patient tested negative 02/14/20 for COVID but now positive on 03/01/20 (done as a screening to go to the SNF; patient asymptomatic). Patient has been afebrile since admission. It is unclear when he was exposed or how long he has had COVID. His O2 requirement had been stable for many days. Finished Decadron 03/11. (2) Confusion: Code(s): R41.0 - Disorientation, unspecified Status: Acute Assessment and Plan: Patient confused 02/28. Labs, ABG and CXR okay. CT brain ordered but this also showing no acute changes. Symptoms improved after having HD 03/04. Could be COVID related but felt less likely. Plan for HD continue /, suspect uremia major cause but febrile again now. Repeat CT brain showing no change. (3) Acute respiratory failure with hypoxia: Code(s): J96.01 - Acute respiratory failure with hypoxia Status: Acute Assessment and Plan: Secondary to congestive heart failure. COVID test negative 02/14/20 but positive 03/01. He does have evidence of aspiration with thin liquids. Hypoxia could be related to dysphagia/aspiration as well. Tunnel cath placed 02/22 and now on HD. Progressed to intubation pm 03/07 with mech ventilation, ? covid, chf, and/or aspiration. CXR today showing worsening airspace opacities in the Right mid and lower lung zones - probably edema but can not exclude PNA, possibly aspiration. Patient now having n/v. Add Reglan. (4) Acute exacerbation of congestive heart failure: Qualifiers: Heart failure type: diastolic Qualified Code(s): I50.33 - Acute on chronic diastolic (congestive) heart failure Code(s): I50.9 - Heart failure, unspecified Status: Acute Assessment and Plan: Echo here revealed EF of 55% with diastolic dysfunction Grade I and moderate to severe with moderate MR. BNP 32K. CXR showing pulmonary edema. CXR today as above. Continue HD to control fluid status. (5) Chronic progressive renal failure, stage 4 (severe): Code(s): N18.4 - Chronic kidney disease, stage 4 (severe) Status: Chronic Assessment and Plan: Cr was in the mid-2 range in December. Creatinine 3.1 on admission and increased to 3.3 the next day. Cr running 3.3-3.6 range for many days but then 4.1-4.5 and climbing despite being off his diuretics (held 02/15). Renal sonogram showed no hydro but distended bladder and over 600 ml residual so cath placed. No change in Cr since Ahuja placed so less likely from obstructive uropathy. Patient also confused which could be related to the azotemia. With continued evidence of fluid overload and uremia, he was started dialysis 02/22 and will continue dialysis Wednesday//Wednesday. One liter removed at dialysis 03/09. HD as BP tolerates. (6) Aortic stenosis: Onset Date: ~12/2019 Code(s): I35.0 - Nonrheumatic aortic (valve) stenosis Status: Acute Assessment and Plan: Echo showng moderate to severe with 1 cm2 valve area. Being followed by cardiology. (7) Chronic anemia: Code(s): D64.9 - Anemia, unspecified Status: Acute Assessment and Plan: Patient with chronic anemia mostly in the 10-11 prior to admission. Hgb had dropped into the 8 range. [place] anemia of chronic disease with iron deficiency component as well. He completed IV iron x 5 days. Slow drifting down. Follow. (8) Hypertension: Code(s): I10 - Essential (primary) hypertension Status: Acute Assessment and Plan: Patient's blood pressure monitored closely Blood pressure low at times but remains mostly well controlled. Coreg stopped and currently on Midodrine. (9) Type 2 diabetes mellitus with peripheral neuropathy: Code(s): E11.42 - Type 2 diabetes mellitus with diabetic polyneuropathy
[2020-03-14] VITALS (16 sets, daily range): BP systolic 67–111; BP diastolic 48–62; PULSE 86–130; RESP 22–28; TEMP 37.3–38.8; O2SAT 94–98
[2020-03-14] MEDS: METOCLOPRAMIDE HCL INJ 10 MG/2 ML VIAL 5 MG IV PUSH ×2 (00:25→05:16)
[2020-03-14] MEDS: ACETAMINOPHEN 325 MG TABLET 650 MG PO (00:26)
[2020-03-14] MEDS: CEFEPIME 0.5 GM in DEXTROSE 5% IN WATER 50 ML IVPB (00:26)
[2020-03-14 00:52] LABS: Glucose Point of Care 134 (65-105)
[2020-03-14] MEDS: ALBUTEROL SULFATE NEB 2.5 MG/0.5 ML INH INHALATION (03:16)
[2020-03-14] MEDS: IPRATROPIUM BR 0.02% INH SOLN 0.5 MG/2.5 ML VIAL INHALATION (03:16)
[2020-03-14 04:35] LABS: Alanine Aminotransferase 44 U/L (4-50); Alkaline Phosphatase 47 U/L (38-126); Anion Gap 7 mmol/L (8-16); Aspartate Amino Transferase 50 U/L (17-59); Bilirubin,Total 0.9 mg/dL (0.2-1.3); Blood Urea Nitrogen 59 mg/dL (9-20); Calcium 8.5 mg/dL (8.4-10.2); Carbon Dioxide 28 mmol/L (22-30); Chloride 102 mmol/L (98-107); Estimated CRCL calculation 12 ml/min; Estimated Glomerular Filt Rate 12; Glucose 128 mg/dL (75-110); Lactate Dehydrogenase 552 U/L (313-618); Magnesium 2.3 mg/dL (1.6-2.3); Phosphorus 3.8 mg/dL (2.5-4.5); Potassium 4.7 mmol/L (3.4-5.0); Sodium 137 mmol/L (137-145)
[2020-03-14 04:43] LABS: Hematocrit 23.6 % (42.0-52.0); Hemoglobin 7.7 g/dL (14.0-18.0); Mean Corpuscular HGB Conc 32.6 g/dl (32-36); Mean Corpuscular Hemoglobin 31.7 pg (26-34); Mean Corpuscular Volume 97.1 fl (80-100); Mean Platelet Volume 11.8 fl (7.4-10.4); Platelet Count Result 171 k/mm3 (150-375); Red Blood Count 2.43 M/mm3 (4.6-6.20); Red Cell Distribution Width 15.7 % (11.5-14.5); White Blood Count 19.4 K/mm3 (4.5-10.0)
[2020-03-14 05:12] LABS: CRP 16.4 mg/dL (<1.0)
[2020-03-14] MEDS: AMIODARONE 150 MG/D5W 100 ML 150 MG/100 ML BAG 600 MG IV CONT (05:29)
[2020-03-14] MEDS: SODIUM CHLORIDE 0.9% IV 250 ML 999 ML (05:29)
[2020-03-14] MEDS: SODIUM CHLORIDE 0.9% IV 1,000 ML 999 ML (05:32)
[2020-03-14] MEDS: AMIODARONE 360 MG/D5W 200 ML 360 MG/200 ML BAG 33.33 MG IV CONT (05:37)
[2020-03-14] MEDS: NOREPINEPHRINE 8 MG/D5W 250 ML 8 MG/250 ML BAG 18.75 MG IV CONT (06:09)
[2020-03-14] MEDS: CENTRAL LINE FLUSH 10 ML IV PUSH (06:10)
--- NOTE | 2020-03-14 06:10 | WPDPROCEDUR ---
Procedures Central Line Placement Left Femoral: Central Line Date: 03/14/20 Central Line Time: 06:10 Discussed w/ the patient/family/POA,the placement of a central venous catheter, including its clinical necessity/indication & associated potential risks, benifits and alternatives.: Yes Time Out Performed: Yes Patient Position: supine Patient placed on monitor/pulse ox: Yes Provider Prep: mask, sterile gown, sterile gloves, Max. sterile barrier precautions, cap and hand hygiene with conventional soap/water or alcohol based hand rub Central line prep: 2% Chlorhexidine scrub Sterile US Technique with sterile gel/sterile probe covers: Yes Central line lumen inserted: triple Turkmen: 7 Length (cm): 20 Depth of Insertion (cm): 20 Post Procedure: sutured in place, good blood return, all ports aspirated, flushed, capped, transparent dressing, securement product and aseptic technique maintained throughout procedure Patient tolerated procedure: well Complications: none Additional comments: Date of service of procedure was 03/14/2020 at 06:00 hrs.
--- NOTE | 2020-03-14 06:23 | PM.EVENT ---
Event Note Event Note Event Note: Called to bedside to evaluate this 85-year-old male who is being treated for acute heart failure exacerbation, acute respiratory failure, COVID pneumonia, acute renal failure on HD, and UTI who tonight suddenly developed a rapid heart rate. Nursing called me and informed me that his blood pressure was 75/30 mm Hg. I immediately administered a NS fluid bolus and came to bedside to evaluate him. EKG was obtained which demonstrated atrial fibrillation with RVR. On review of his chart it appears that this new onset atrial fibrillation. The patient is not a good candidate for calcium channel blockers or beta-blockers given his severe hypotension. He also is a very poor candidate for digoxin as he is on dialysis. At this time we will start amiodarone IV for rate control. I have obtained verbal consent from the patient's daughter to place a central line and we will administer vasopressors as needed for his severe hypotension. Check TSH reflex T4 if this is not been done recently. He he did have echocardiogram done last month. Cardiology consultation for new onset atrial fibrillation with RVR. The patient is not a good candidate for anticoagulation given his low H&H.
[2020-03-14 07:01] LABS: Base Excess ABG -2.2 mEq/l (+/-2.0); HCO3 ABG 21.6 mEq/l (22.0-26.0); Oxygen Saturation ABG 94.5 % (95.0-100.0); PCO2 ABG 32.4 mmHg (35.0-45.0); PO2 ABG 68.1 mmHg (80.0-100.0); pH ABG 7.441 (7.350-7.450)
[2020-03-14 07:02] LABS: Alveolar/Arterial O2 Gradient 107.7 mmHg; Carboxyhemoglobin 0.3 % THb (0-2.0); Methemoglobin ABG 0.4 %THb (0-1.5); Oxygen Content ABG 9.9 %vol (16.0-22.0); Oxyhemoglobin 91.4 % THb (90.0-100.0); Reduced Hemoglobin 7.9 %THb (0-5.0); Total Hemoglobin 7.6 g/dL (12.0-18.0)
[2020-03-14 07:03] LABS: Arterial Blood Gas PEEP 5 cmH2O; Arterial Blood Gas Vent Mode ASV; Device VENTILATOR; Fractional Inspired Oxygen 30 %; Modified Allen's Test Pass; PO2 FiO2 Ratio Arterial Blood 2.27 %; Site Drawn LEFT RADIAL
[2020-03-14] MEDS: MIDODRINE HCL 2.5 MG TABLET 5 MG PO (08:38)
[2020-03-14] MEDS: polyethylene glycoL 3350 17 GM POWD.PACK PO (08:38)
[2020-03-14] MEDS: FAMOTIDINE 20 MG/2 ML VIAL IV PUSH (08:39)
[2020-03-14] MEDS: HEPARIN SODIUM 5,000 UNITS/ML VIAL 5000 UNITS SUB-Q (08:39)
[2020-03-14] MEDS: BETAMETHASONE/CLOTRIMAZOLE CR 15 GM TUBE 1 APPLIC TOPICAL (08:39)
[2020-03-14] MEDS: ATORVASTATIN 10 MG TABLET PO (08:39)
[2020-03-14] MEDS: FINASTERIDE 5 MG TABLET PO (08:39)
[2020-03-14] MEDS: INSULIN GLARGINE (*BKC) 100 UNITS/ML 30 UNITS SUB-Q (08:42)
[2020-03-14] MEDS: MORPHINE SULFATE (*CRX) 4 MG/ML INJ (10:15)
--- NOTE | 2020-03-14 10:55 | WPDINTPN ---
Progress Note: A&P Assessment and Plan (1) Acute respiratory failure with hypoxia: Code(s): J96.01 - Acute respiratory failure with hypoxia Status: Acute (2) Encephalopathy: Code(s): G93.40 - Encephalopathy, unspecified Status: Acute (3) COVID-19: Code(s): U07.1 - COVID-19 Status: Acute (4) Acute exacerbation of congestive heart failure: Qualifiers: Heart failure type: diastolic Qualified Code(s): I50.33 - Acute on chronic diastolic (congestive) heart failure Code(s): I50.9 - Heart failure, unspecified Status: Acute Assessment and Plan: (5) Chronic progressive renal failure, stage 4 (severe): Code(s): N18.4 - Chronic kidney disease, stage 4 (severe) Status: Chronic (6) Aortic stenosis: Onset Date: ~12/2019 Code(s): I35.0 - Nonrheumatic aortic (valve) stenosis Status: Acute (7) Chronic anemia: Code(s): D64.9 - Anemia, unspecified Status: Acute (8) Hypertension: Code(s): I10 - Essential (primary) hypertension Status: Acute (9) Type 2 diabetes mellitus with peripheral neuropathy: Code(s): E11.42 - Type 2 diabetes mellitus with diabetic polyneuropathy Status: Acute (10) Urinary tract infection associated with catheterization of urinary tract: Qualifiers: Indwelling urinary catheter type: indwelling urethral catheter Encounter type: subsequent encounter Qualified Code(s): T83.511D - Infection and inflammatory reaction due to indwelling urethral catheter, subsequent encounter; N39.0 - Urinary tract infection, site not specified Code(s): T83.511A - Infection and inflammatory reaction due to indwelling urethral catheter, initial encounter; N39.0 - Urinary tract infection, site not specified Status: Acute (11) Shock: Code(s): R57.9 - Shock, unspecified Status: Acute (12) Atrial fibrillation: Code(s): I48.91 - Unspecified atrial fibrillation Status: Acute Additional Plan As well mentioned patient became hypotensive and went into atrial fibrillation with RVR. Patient had a central venous catheter placed and Levophed was started. Patient's daughter was called overnight and updated. He made patient DNR at that time and was considering comfort care measures. This morning after I saw the patient, bedside nurse spoke to her again by phone and she expressed that she does not want patient to continue on life support as he would not want to suffer like this. She said that she will be coming to the hospital to see him and then proceeding with palliative extubation. I examined the patient and reviewed labs and imaging. Was patient daughter arrived I spoke to her in detail and she expressed her wishes to discontinue all medical therapy and life support including ventilation and dialysis and proceed with palliative extubation and comfort care only.. She prayed at bedside with our unit manager Jose. I explained her the comfort measure procedures that I will discontinue all medical therapy and use opioids, anxiolytics and other agents on as needed basis to promote comfort and discontinue all medical therapy, lab testing and invasive monitoring. She verbalized understanding. Should all her questions. Patient was extubated. Patient soon and was pronounced Critical care time spent: 35 minutes Due to a high probability of clinically significant, life threatening deterioration, the patient required my highest level of preparedness to intervene emergently and I personally spent this critical care time directly and personally managing the patient. This critical care time included obtaining a history; examining the patient; pulse oximetry; ordering and review of studies; arranging urgent treatment with development of a management plan; evaluation of patient's response to treatment; frequent reassessment; and discussions with other providers. It was
--- NOTE | 2020-03-14 13:04 | PC.NURSE ---
PT continues to need increasing support. Spoke to daughter Tarah Leon. She wishes to make pt comfort measures. She will be coming in at 1000 to see him. 1020 pt is extubated. Family is outside room with patient. 1030 pt
[2020-03-14] MEDS: LORazepam INJ (*CRX) 2 MG/ML VIAL (13:13)
== END 2020-03-14 10:30 | disposition expired | DRG 291 ==
LOC: ANHED 09:17 → ANHIMU 14:32 → ANH2MED 02-12 20:04 → ANH3MEDSUR 02-20 01:26 → ANH2MED 03-15 13:49 → ANH3MEDSUR 03-15 13:49 → ANHICU 03-15 13:49 → ANHIMU 03-15 13:49
PROVIDERS: Family Medicine; Internal Medicine; Internal Medicine Critical Care Medicine; Internal Medicine Nephrology; Surgery; Admitting Provider Internal Medicine; Emergency Provider General Practice; PCP Family Medicine; Visit Provider Physician Assistant
PROC: 0JH63XZ Insertion of Tunneled Vascular Access Device into Chest Subcutaneous Tissue and Fascia, Percutaneous Approach (ICD-10-PCS; CPT 36908; principal; 2020-02-23 07:30)
DX: I13.0 Hypertensive heart and chronic kidney disease with heart failure and stage 1 through stage 4 chronic kidney disease, or unspecified chronic kidney disease (principal); J80 Acute respiratory distress syndrome; T83.511A Infection and inflammatory reaction due to indwelling urethral catheter, initial encounter; N39.0 Urinary tract infection, site not specified; U07.1 COVID-19; I50.33 Acute on chronic diastolic (congestive) heart failure; G92 Toxic encephalopathy; J12.89 Other viral pneumonia; N18.4 Chronic kidney disease, stage 4 (severe); N17.9 Acute kidney failure, unspecified; I50.22 Chronic systolic (congestive) heart failure; R57.9 Shock, unspecified; Z66 Do not resuscitate; Z51.5 Encounter for palliative care; E11.22 Type 2 diabetes mellitus with diabetic chronic kidney disease; I71.4 Abdominal aortic aneurysm, without rupture; M19.90 Unspecified osteoarthritis, unspecified site; F32.9 Major depressive disorder, single episode, unspecified; R13.10 Dysphagia, unspecified; K29.70 Gastritis, unspecified, without bleeding; K21.9 Gastro-esophageal reflux disease without esophagitis; E78.5 Hyperlipidemia, unspecified; L40.9 Psoriasis, unspecified; G31.84 Mild cognitive impairment of uncertain or unknown etiology; E11.42 Type 2 diabetes mellitus with diabetic polyneuropathy; E55.9 Vitamin D deficiency, unspecified; Z87.891 Personal history of nicotine dependence; R77.8 Other specified abnormalities of plasma proteins; Z79.82 Long term (current) use of aspirin; Z79.4 Long term (current) use of insulin; R33.8 Other retention of urine; N40.1 Benign prostatic hyperplasia with lower urinary tract symptoms; I08.0 Rheumatic disorders of both mitral and aortic valves; D63.1 Anemia in chronic kidney disease; N13.9 Obstructive and reflux uropathy, unspecified; D50.9 Iron deficiency anemia, unspecified; Y73.1 Therapeutic (nonsurgical) and rehabilitative gastroenterology and urology devices associated with adverse incidents; Y92.230 Patient room in hospital as the place of occurrence of the external cause; Y84.4 Aspiration of fluid as the cause of abnormal reaction of the patient, or of later complication, without mention of misadventure at the time of the procedure; I95.3 Hypotension of hemodialysis; R09.2 Respiratory arrest; B96.5 Pseudomonas (aeruginosa) (mallei) (pseudomallei) as the cause of diseases classified elsewhere; R11.2 Nausea with vomiting, unspecified; R50.9 Fever, unspecified; I48.91 Unspecified atrial fibrillation
CPT/HCPCS: 31500; 36415; 36600; 70450; 71045; 71046; 74018; 76775; 77001; 80048; 80053; 80069; 80074; 81001; 81050; 82140; 82274; 82375; 82550; 82570; 82575; 82595; 82607; 82668; 82728; 82805; 83050; 83540; 83550; 83605; 83615; 83735; 83880; 83883; 83970; 84100; 84145; 84156; 84300; 84439; 84443; 84480; 84484; 85025; 85027; 85610; 85652; 85730; 85999; 86021; 86038; 86140; 86160; 86162; 86225; 86334; 86335; 86704; 86706; 86803; 87040; 87070; 87077; 87086; 87088; 87186; 87340; 87635; 92526; 92611; 92950; 93005; 93306; 93970; 94002; 94003; 94618; 94640; 97110; 97116; 97161; 97164; 97165; 97168; 97530; 97535; 99285; A9270; C1750; C1751; C9803; G0257; J0282; J0692; J0696; J1644; J1756; J1815; J1940; J2060; J2250; J2270; J2543; J2704; J2765; J3010; J7030; J7040; J7050; J8540; P9047; Q5106; U0003